=== PATIENT | female | born 1975 | race Caucasian/White ===

== ENCOUNTER → 2018-02-21 08:42 | Outpatient (CLI) | payer SELFPAY ==
--- NOTE | 2018-02-21 08:48 | BI_ITS ---
MAMMOGRAPHY - UNILATERAL SCREENING: LEFT BREAST REASON FOR EXAM: Female, 42 years old. Routine annual screening examination (unilateral). PERTINENT HISTORY: Personal history of breast cancer. Status post right mastectomy and bilateral breast implants. Grandmother with breast cancer. TECHNIQUE: Digital unilateral breast colt (3D mammographic acquisition) in the CC and MLO projections. 2-D mediolateral oblique (MLO) and craniocaudad (CC) views of both breasts were obtained. CAD: Full Field Digital Mammography with Computer Added Detection was performed. COMPARISON: Comparison is made with prior study dated December 15, 2016. FINDINGS: Breast Composition: The breasts are heterogeneously dense, which may obscure small masses. There are no dominant masses or suspicious calcifications. Stable appearance of the implant. No other significant abnormalities are identified. There has been no significant change since the prior study. BI/UNILAT LT SCRN W/CAD IMPRESSION: Stable unilateral screening mammogram. Yearly follow-up mammogram recommended. (A) ASSESSMENT CATEGORY: BIRADS Category 2: Benign. A letter regarding these results will be sent to the patient by the facility within 30 days. Approximately 10% of breast cancers are not detected by mammography. A normal mammogram should not delay biopsy of a clinically suspicious abnormality. [id number] Electronically Signed: Gregory Jamil MD at 9:42 EST Tel [phone], Service support ,
== END ==
PROVIDERS: Visit Provider Internal Medicine Hematology & Oncology
DX: Z12.31 Encounter for screening mammogram for malignant neoplasm of breast (principal); C50.411 Malignant neoplasm of upper-outer quadrant of right female breast; Z17.0 Estrogen receptor positive status [ER+]
CPT/HCPCS: 77061; 77067; G0279

== ENCOUNTER → 2018-02-23 19:52 | Outpatient (CLI) | payer SELFPAY | PROVIDERS: Referring Provider Obstetrics & Gynecology; Visit Provider Obstetrics & Gynecology | DX: N76.0 Acute vaginitis (principal) | CPT/HCPCS: 87070; 87205 ==

== ENCOUNTER → 2018-04-19 13:51 | Outpatient (CLI) | payer SELFPAY ==
[2018-04-19 09:34] VITALS: BMI 21.6
--- NOTE | 2018-04-19 13:54 | US_ITS ---
STUDY: ULTRASOUND OF THE FEMALE PELVIS - COMPLETE REASON FOR EXAM: Female, 43 years old. Pelvic pain and fullness LMP: 04/01/2018 TECHNIQUE: Transabdominal and Transvaginal TECHNICAL QUALITY: Adequate. COMPARISON: None. FINDINGS: The uterus is anteverted and is in a midline position. The uterus measures 9.9 x 6.9 x 5.0 cm. Normal uterine cervix. The endometrium measures 1.5 mm in thickness, and is hyperechoic. There is no demonstrated endometrial mass. There is no demonstrated myometrial mass. I.U.D. - The patient does not have an I.U.D. The right ovary is visualized. The right ovary measures 3.4 x 3.1 x 1.9 cm. There is no right ovarian cyst or ovarian mass. There is no visualized right adnexal mass or complex lesion. There is normal arterial and normal venous vascularity. The left ovary is visualized. The left ovary measures 3.8 x 2.2 x 2.4 cm. There is a complex left adnexal cyst measuring 2.9 x 3.4 x 1.9 cm. There is normal arterial and normal venous vascularity. There is no fluid in the cul-de-sac. The bladder is sonographically normal US/Transvaginal Non- IMPRESSION: Complex left adnexal cyst, follow-up recommended to assure resolution Electronically Signed: Dejon Mario MD at 16:03 EST , Service support ,
--- NOTE | 2018-04-19 13:54 | US_ITS ---
STUDY: ULTRASOUND OF THE FEMALE PELVIS - COMPLETE REASON FOR EXAM: Female, 43 years old. Pelvic pain and fullness LMP: 04/01/2018 TECHNIQUE: Transabdominal and Transvaginal TECHNICAL QUALITY: Adequate. COMPARISON: None. FINDINGS: The uterus is anteverted and is in a midline position. The uterus measures 9.9 x 6.9 x 5.0 cm. Normal uterine cervix. The endometrium measures 1.5 mm in thickness, and is hyperechoic. There is no demonstrated endometrial mass. There is no demonstrated myometrial mass. I.U.D. - The patient does not have an I.U.D. The right ovary is visualized. The right ovary measures 3.4 x 3.1 x 1.9 cm. There is no right ovarian cyst or ovarian mass. There is no visualized right adnexal mass or complex lesion. There is normal arterial and normal venous vascularity. The left ovary is visualized. The left ovary measures 3.8 x 2.2 x 2.4 cm. There is a complex left adnexal cyst measuring 2.9 x 3.4 x 1.9 cm. There is normal arterial and normal venous vascularity. There is no fluid in the cul-de-sac. The bladder is sonographically normal US/Pelvic (Non ) IMPRESSION: Complex left adnexal cyst, follow-up recommended to assure resolution Electronically Signed: Dejon Mario MD at 16:03 EST , Service support ,
[2018-04-24 16:26] LABS: HPV APTIMA, High Risk Negative (Negative)
== END ==
PROVIDERS: Referring Provider Obstetrics & Gynecology; Visit Provider Obstetrics & Gynecology
DX: Z12.4 Encounter for screening for malignant neoplasm of cervix (principal); N94.9 Unspecified condition associated with female genital organs and menstrual cycle
CPT/HCPCS: 76830; 76856; 87624; 88175; 93976; G0145

== ENCOUNTER → 2018-04-21 11:19 | Outpatient (CLI) | payer SELFPAY ==
[2018-04-19 09:34] VITALS: BMI 21.6
[2018-04-22 12:26] LABS: Carcinoembryonic Antigen 1.3 ng/mL (0.0-4.7)
== END ==
PROVIDERS: Referring Provider Nurse Practitioner Women's Health; Visit Provider Nurse Practitioner Women's Health
DX: N83.202 Unspecified ovarian cyst, left side (principal)
CPT/HCPCS: 36415; 82378; 86304

== ENCOUNTER → 2019-04-20 11:28 | Outpatient (CLI) | payer MEDICAID, SELFPAY ==
[2018-04-19 09:34] VITALS: BMI 21.6
--- NOTE | 2019-04-20 11:38 | BI_ITS ---
MAMMOGRAPHY - UNILATERAL SCREENING: LEFT BREAST REASON FOR EXAM: Female, 44 years old. Routine annual screening examination (unilateral). PERTINENT HISTORY: Status post right mastectomy. Personal history of breast malignancy. TECHNIQUE: Digital examination. Mediolateral oblique (MLO) and craniocaudad (CC) views of the breast were obtained. CAD: CAD was performed on this study. COMPARISON: February 21, 2018. FINDINGS: Breast Composition: The breasts are heterogeneously dense, which may obscure small masses. There are no dominant masses or suspicious calcifications. No other significant abnormalities are identified. BI/SCREEN MAMM (CAD) W/SONYA UNI L IMPRESSION: Stable screening mammogram. ASSESSMENT CATEGORY: BIRADS Category 2: Benign. A letter regarding these results will be sent to the patient by the facility within 30 days. FOLLOW UP RECOMMENDATION: Yearly follow up mammogram recommended. (A) [id number] Approximately 10% of breast cancers are not detected by mammography. A normal mammogram should not delay biopsy of a clinically suspicious abnormality. [id number] Electronically Signed: Pepe Singleton MD at 15:09 EST , Service support ,
== END ==
PROVIDERS: Family Provider Family Medicine; PCP Family Medicine; Referring Provider Obstetrics & Gynecology; Visit Provider Obstetrics & Gynecology
DX: Z12.31 Encounter for screening mammogram for malignant neoplasm of breast (principal)
CPT/HCPCS: 77063; 77067

== ENCOUNTER → 2019-04-24 14:25 | Outpatient (CLI) | payer MEDICAID, SELFPAY ==
[2019-04-23 09:32] VITALS: BMI 21.6
--- NOTE | 2019-04-24 14:26 | US_ITS ---
STUDY: ULTRASOUND BREAST - LEFT REASON FOR EXAM: Female, 44 years old. Palpable lump left breast. TECHNIQUE: Axial and longitudinal images of the LEFT breast were performed with a high resolution ultrasound transducer. # OF IMAGES: 9 COMPARISON: Comparison is made with prior mammogram dated April 20, 2019. FINDINGS: LEFT Breast: The palpable abnormality corresponds to a 3 mm x 4 mm x 2 mm cyst. US/Breast Limited Unilateral IMPRESSION: The palpable abnormality corresponds to a 3 mm x 4 mm x 2 mm cyst. ASSESSMENT CATEGORY: BIRADS Category 2: Benign. A letter regarding these results will be sent to the patient by the facility within 30 days. Electronically Signed: Gregory Jamil, at 15:35 EST , Service support ,
== END ==
PROVIDERS: Family Provider Family Medicine; PCP Family Medicine; Referring Provider Obstetrics & Gynecology; Visit Provider Obstetrics & Gynecology
DX: N63.20 Unspecified lump in the left breast, unspecified quadrant (principal); Z85.3 Personal history of malignant neoplasm of breast
CPT/HCPCS: 76642

== ENCOUNTER → 2019-04-27 11:25 | Outpatient (CLI) | payer MEDICAID, SELFPAY ==
[2019-04-23 09:32] VITALS: BMI 21.6
[2019-04-27 16:06] LABS: Color, Urine Yellow (Yellow); Glucose, Dipstick Normal (Normal); Ketone-Dipstick Negative (Negative); Leukocyte Esterase-Dipstick Negative /ul (Negative); Nitrite-Dipstick Negative (Negative); Occult Blood-Urine Negative /ul (Negative); Protein-Dipstick Negative (Negative); Urine Bilirubin Dipstick Negative (Negative); Urine Clarity Clear (Clear); Urine Urobilinogen Normal (Normal)
[2019-04-27 16:30] LABS: Anion Gap 4 (5-15); BUN 14 mg/dL (7-18); BUN/Creat Ratio 18.4 RATIO (10-20); Calcium,Total 9.3 mg/dL (8.5-10.1); Chloride 104 mmol/L (98-107); Creatinine, Serum 0.76 mg/dL (0.55-1.02); EST Glomerular Filtration Rate 87 mL/min (>60); Est Glom Filt Rate - Afr Amer 106 mL/min (>60); Glucose 78 mg/dL (74-106); Sodium Level 137 mmol/L (136-145)
== END ==
PROVIDERS: Family Provider Family Medicine; PCP Family Medicine; Visit Provider Family Medicine
DX: I10 Essential (primary) hypertension (principal)
CPT/HCPCS: 36415; 80048; 81002; 84443

== ENCOUNTER → 2019-05-07 08:27 | Outpatient (CLI) | payer SELFPAY, MEDICAID ==
[2019-04-23 09:32] VITALS: BMI 21.6
--- NOTE | 2019-05-07 08:28 | US_ITS ---
STUDY: ULTRASOUND OF THE FEMALE PELVIS - COMPLETE REASON FOR EXAM: Female, 44 years old. F/u complex cyst LMP: April 29, 2019. TECHNIQUE: Transabdominal and Transvaginal TECHNICAL QUALITY: Adequate. COMPARISON: Comparison is made with prior examination dated April 19, 2018. FINDINGS: The uterus is anteverted and is in a midline position. The uterus measures 10 cm x 6.3 cm x 4.4 cm. There are Nabothian cysts of the cervix. The endometrium measures 9.0 mm in thickness, and is hyperechoic. There is no demonstrated endometrial mass. There is no demonstrated myometrial mass. I.U.D. - The patient does not have an I.U.D. The right ovary is visualized. The right ovary measures 3.4 cm x 3 cm x 2.1 cm. There is no right ovarian cyst or ovarian mass. There is no visualized right adnexal mass or complex lesion. There is normal arterial and normal venous vascularity. The left ovary is visualized. The left ovary measures 3.7 cm x 2.6 cm x 2.4 cm. A dominant follicle is seen within the left ovary measuring 1.7 cm x 1.3 cm x 1.4 cm. There is no visualized left adnexal mass or complex lesion. There is normal arterial and normal venous vascularity. There is no fluid in the cul-de-sac. The pre void volume of the bladder was 405 ml. Polycystic ovary disease: No. US/Transvaginal Non- IMPRESSION: Dominant follicle in the left ovary. No complex cyst is seen at this time. Electronically Signed: Gregory Jamil, at 14:48 EST , Service support ,
--- NOTE | 2019-05-07 08:28 | US_ITS ---
STUDY: ULTRASOUND OF THE FEMALE PELVIS - COMPLETE REASON FOR EXAM: Female, 44 years old. F/u complex cyst LMP: April 29, 2019. TECHNIQUE: Transabdominal and Transvaginal TECHNICAL QUALITY: Adequate. COMPARISON: Comparison is made with prior examination dated April 19, 2018. FINDINGS: The uterus is anteverted and is in a midline position. The uterus measures 10 cm x 6.3 cm x 4.4 cm. There are Nabothian cysts of the cervix. The endometrium measures 9.0 mm in thickness, and is hyperechoic. There is no demonstrated endometrial mass. There is no demonstrated myometrial mass. I.U.D. - The patient does not have an I.U.D. The right ovary is visualized. The right ovary measures 3.4 cm x 3 cm x 2.1 cm. There is no right ovarian cyst or ovarian mass. There is no visualized right adnexal mass or complex lesion. There is normal arterial and normal venous vascularity. The left ovary is visualized. The left ovary measures 3.7 cm x 2.6 cm x 2.4 cm. A dominant follicle is seen within the left ovary measuring 1.7 cm x 1.3 cm x 1.4 cm. There is no visualized left adnexal mass or complex lesion. There is normal arterial and normal venous vascularity. There is no fluid in the cul-de-sac. The pre void volume of the bladder was 405 ml. Polycystic ovary disease: No. US/Pelvic (Non ) IMPRESSION: Dominant follicle in the left ovary. No complex cyst is seen at this time. Electronically Signed: Gregory Jamil, at 14:48 EST , Service support ,
== END ==
PROVIDERS: Family Provider Family Medicine; PCP Family Medicine; Referring Provider Obstetrics & Gynecology; Visit Provider Obstetrics & Gynecology
DX: N83.291 Other ovarian cyst, right side (principal)
CPT/HCPCS: 76830; 76856

== ENCOUNTER → 2020-04-28 | Outpatient (CLI) | payer MEDICAID, SELFPAY ==
[2020-04-28 10:24] VITALS: BMI 21.9
== END | disposition home or self-care (01) ==
PROVIDERS: PCP Family Medicine; Visit Provider Obstetrics & Gynecology
DX: N89.8 Other specified noninflammatory disorders of vagina (principal)
CPT/HCPCS: 87070; 87205

== ENCOUNTER 2021-04-30 10:36 | Outpatient (CLI) | payer MEDICAID, SELFPAY ==
[2021-04-30 14:53] LABS: NATERA MAILED SPECIMEN
[2021-05-06 08:47] LABS: HPV APTIMA, High Risk Negative (Negative)
== END 2021-04-30 23:59 | disposition short-term general hospital (02) ==
PROVIDERS: PCP Family Medicine; Referring Provider Obstetrics & Gynecology; Visit Provider Obstetrics & Gynecology
DX: Z12.4 Encounter for screening for malignant neoplasm of cervix (principal); Z85.3 Personal history of malignant neoplasm of breast; Z80.3 Family history of malignant neoplasm of breast
CPT/HCPCS: 36415; 87624; 88175; G0145

== ENCOUNTER 2021-10-06 11:40 | Day surgery (SDC) | payer MEDICAID, SELFPAY ==
[2021-10-06] VITALS (7 sets, daily range): BP systolic 102–150; BP diastolic 50–83; PULSE 64–84; RESP 16–18; TEMP 36.2–37.2; O2SAT 98–100; BMI 22.3
--- NOTE | 2021-10-06 12:00 | HP.PCM_ITS ---
[facility] - General General Date of Admission: 10/06/21 Date of Service: 10/06/21 Chief Complaint: Colonoscopy [facility] Narrative DOLORES MONIQUE, is a 46 F who presents today for screening colonoscopy. She has a history of breast cancer. At this time she is not having any problems with her bowels. She also carries a past medical history of mild hypertension. She denies any abdominal pain. She denies any chest pain or shortness of breath. [facility] Medical History (Updated 10/01/21 @ 11:54 by Cleopatra Dawson) Alcohol use ASCUS of cervix with negative high risk HPV Breast cancer Cancer Complex cyst of right ovary Hypertension Kidney stones, calcium oxalate Left breast lump Non-smoker Wears contact lenses Home Medications albuterol sulfate 90 mcg/actuation breath activated powder inhaler 1 inh inhalation Q6H PRN SOB 10/01/21 [History Last Taken Unknown] losartan 25 mg tablet 25 mg PO DAILY 10/01/21 [History Last Taken Unknown] Allergy/AdvReac Type Severity Reaction Status Date / Time No Known Allergies Allergy Verified 10/01/21 11:48 Family History Grandmother Breast cancer Hypertension Father Cancer prostate Surgical History (Updated 04/30/21 @ 09:54 by Aislinn Gonsalez) H/O mastectomy History of mastectomy Hx of right breast biopsy Hx of right mastectomy Social History (Updated 04/30/21 @ 10:[address] 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 Smoking Status: Never smoker alcohol intake: current alcohol intake frequency: holidays/special occasions only substance use type: does not use caffeine: Yes what type of physical activity do you participate in: running frequency: 3-4 times per week seatbelt use: always do you feel safe at home: Yes additional social history: remarried Fly (retired) ROS Review of Systems ROS Unobtainable: other Constitutional Constitutional: Denies fatigue, fever(s), poor appetite, weight gain or weight l oss ENT HEENT: Denies mouth lesions Cardiovascular Cardiovascular: Denies abdominal bloating, abdominal edema or abdominal pain Respiratory/Chest Respiratory/Chest: Denies change in mental status, change in phlegm color, chest congestion or chest tightness Gastrointestinal Gastrointestinal: Denies belching, bloating, change in bowel habits, change in stool character, chewing difficulty, coffee ground emesis, constipation, cramping, diarrhea, dyspepsia, dysphagia, early satiety, excessive flatus, fecal incontinence, heartburn, hematemesis, hematochezia, hemorrhoids, loose stools, melena, nausea, odynophagia, rectal bleeding, tenesmus, vomiting or weight changes Genitourinary Genitourinary: Denies abdominal discomfort, burning urination or itching Musculoskeletal Musculoskeletal: Reports as per HPI; Denies muscle weakness or myalgias Integumentary Integumentary: Denies jaundice Neurologic Neurologic: Denies lack of coordination or weakness Psychiatric Psychiatric: Denies confusion, depression, memory loss, mood swings, paranoia or suicidal ideation Endocrine Endocrinology: Denies systems reviewed and no addt'l complaints, except as documented Hematologic/Lymphatic Hematologic/Lymphatic: Denies anemia, easy bleeding, easy bruising or lymphadeno catal[place] Allergic/Immunologic Allergic/Immunologic: Denies systems reviewed and no addt'l complaints, except as documented Physical Exam Const alert General Appearance: cooperative Orientation / Consciousness: oriented to person HEENT hearing grossly normal bilaterally Head and Scalp: normal to inspection Face and Sinus: face symmetric Nose: external nose normal Mouth: oral and palatal mucosa normal Eyes conjunctivae normal General Eye: normal appearance of both eyes Neck full ROM General: normal visual inspection Lymph Lymphatic: no lymphadenopathy noted Chest inspection of chest normal and palpation of chest normal Chest: symmetrical chest wall rise Resp normal respiratory effort Effort and Inspection: able to speak in complete sentences Cardio regular rate GI non-distended Percussion: normal to percussion Rectal Exam: deferred Neuro Speech: speech normal Gait (Neuro): normal gait Assessment & Plan Assessment/Plan (1) Encounter for screening for malignant neoplasm of colon: PLAN: She was explained alternatives, risk, benefits including not withstanding bleeding, infection, sepsis, perforation, need for emergent surgery . She will have an ASA of 1.
[2021-10-06 12:16] LABS: Internal QC Validated? YES +Cl - CLEAR BKGD; Pregnancy, Urine Negative Negative
[2021-10-06] MEDS: Lactated Ringers 1,000 ML 15 ML IV (12:19)
--- NOTE | 2021-10-06 13:22 | OP.COLON_ITS ---
Patient Name: Cara Singh Procedure Date: 10/06/2021 12:51 PM Date of : 1975 Age: 46 Procedure: Colonoscopy Indications: Screening for colorectal malignant neoplasm Providers: Familia Bell DO Medicines: Monitored Anesthesia Care Patient Profile: This is a 46 year old female. Refer to note in patient chart for documentation of history and physical. Last Colonoscopy: none. The patient's first colonoscopy is today. Complications: No immediate complications. Procedure: Pre-Anesthesia Assessment: - Prior to the procedure, a History and Physical was performed, and patient medications and allergies were reviewed. The patient is competent. The risks and benefits of the procedure and the sedation options and risks were discussed with the patient. All questions were answered and informed consent was obtained. Patient identification and proposed procedure were verified by the physician in the pre-procedure area. Mental Status Examination: alert and oriented. Airway Examination: normal oropharyngeal airway and neck mobility. Respiratory Examination: clear to auscultation. CV Examination: normal. Prophylactic Antibiotics: The patient does not require prophylactic antibiotics. Prior Anticoagulants: The patient has taken no previous anticoagulant or antiplatelet agents. After reviewing the risks and benefits, the patient was deemed in satisfactory condition to undergo the procedure. The anesthesia plan was to use moderate sedation / analgesia (conscious sedation). Immediately prior to administration of medications, the patient was re-assessed for adequacy to receive sedatives. The heart rate, respiratory rate, oxygen saturations, blood pressure, adequacy of pulmonary ventilation, and response to care were monitored throughout the procedure. The physical status of the patient was re-assessed after the procedure. After I obtained informed consent, the scope was passed under direct vision. Throughout the procedure, the patient's blood pressure, pulse, and oxygen saturations were monitored continuously. The Colonoscope was introduced through the anus and advanced to the cecum, identified by appendiceal orifice and ileocecal valve. The colonoscopy was performed without difficulty. The patient tolerated the procedure well. The quality of the bowel preparation was good. Scope In: 1:03:36 PM Scope Withdrawal Time 0 hours 9 minutes 6 seconds Scope Out: 1:17:13 PM Total Procedure Duration Time 0 hours 13 minutes 37 seconds Findings: The perianal and digital rectal examinations were normal. The colon (entire examined portion) appeared normal. No additional abnormalities were found on retroflexion. Impression: - The entire examined colon is normal. - No specimens collected. Recommendation: - Written discharge instructions were provided to the patient. - The signs and symptoms of potential delayed complications were discussed with the patient. - Patient has a contact number available for emergencies. - Return to normal activities tomorrow. - Resume previous diet. - Continue present medications. - Repeat colonoscopy in 10 years for screening purposes. Procedure Code(s): --- Professional --- G0121, Colorectal cancer screening; colonoscopy on individual not meeting criteria for high risk CPT copyright 2017 [employer] [place] [employer]. All rights reserved. The codes documented in this report are preliminary and upon brick kiln worker review may be revised to meet current compliance requirements. Familia Bell DO 10/06/2021 1:22:12 PM This report has been signed electronically. Number of Addenda: 1 Note Initiated On: 10/06/2021 12:51 PM Addendum Number: 1 Addendum Date: 01/19/2022 6:10:04 AM MAC was used as sedation for this procedure. Familia Bell DO 01/19/2022 6:10:08 AM This report has been signed electronically.
--- NOTE | 2021-10-06 13:23 | OP.CCLET_ITS ---
01/19/2022 Neena Knox [place] [id number] [address] Re : Colonoscopy procedure for Cara Singh Dear Dr. Knox This procedure was performed on Wednesday, October 06, 2021. My impressions and recommendations are as follows: Impressions : - The entire examined colon is normal. - No specimens collected. Recommendations : - Written discharge instructions were provided to the patient. - The signs and symptoms of potential delayed complications were discussed with the patient. - Patient has a contact number available for emergencies. - Return to normal activities tomorrow. - Resume previous diet. - Continue present medications. - Repeat colonoscopy in 10 years for screening purposes. My findings are described in the full procedure note, which is enclosed. If I can be of further assistance, please feel free to contact me at . Sincerely, Familia Friend, 10/06/2021 1:22:12 PM This report has been signed electronically.
== END 2021-10-06 14:09 | disposition home or self-care (01) ==
LOC: EN 11:42 → AC 11:44
PROVIDERS: Anesthesiology; PCP Family Medicine; Referring Provider Family Medicine; Visit Provider Internal Medicine Gastroenterology
PROC: 0DJD8ZZ Inspection of Lower Intestinal Tract, Via Natural or Artificial Opening Endoscopic (ICD-10-PCS; CPT 45378; principal; 2021-10-06 12:55)
DX: Z12.11 Encounter for screening for malignant neoplasm of colon (principal); I10 Essential (primary) hypertension; Z79.899 Other long term (current) drug therapy
CPT/HCPCS: 45378; 81025; J7120

== ENCOUNTER → 2022-05-06 | Outpatient (CLI) | payer MEDICAID, SELFPAY ==
[2022-05-11 22:08] LABS: HPV APTIMA, High Risk Negative (Negative)
== END | disposition home or self-care (01) ==
LOC: LABSPEC 14:20
PROVIDERS: PCP Family Medicine; Visit Provider Obstetrics & Gynecology
DX: Z12.4 Encounter for screening for malignant neoplasm of cervix (principal)
CPT/HCPCS: 87624; 88175; G0145

== ENCOUNTER → 2022-06-10 | Outpatient (CLI) | payer OTHER, MEDICAID, SELFPAY ==
[2022-06-10 12:25] LABS: AST(SGOT) 25 U/L (15-37); Alanine Aminotransfer ALT/SGPT 39 U/L (13-56); Albumin, Serum 3.8 g/dL (3.2-5.0); Alkaline Phosphatase 53 U/L (45-117); Anion Gap 6 (5-15); BUN 16 mg/dL (7-18); BUN/Creat Ratio 21.7 RATIO (10-20); Calcium,Total 9.7 mg/dL (8.5-10.1); Chloride 105 mmol/L (98-107); Creatinine, Serum 0.74 mg/dL (0.55-1.02); EST Glomerular Filtration Rate 89 mL/min (>60); Est Glom Filt Rate - Afr Amer 108 mL/min (>60); Globulin 3.8 g/dL (2.2-4.2); Glucose 113 mg/dL (74-106); Protein, Total 7.6 g/dL (6.4-8.2); Sodium Level 140 mmol/L (136-145)
[2022-06-10 12:50] LABS: Absolute Lymphocyte Count 1.57 X10^3/uL (0.83-4.51); Absolute Neutrophil Count 8.8 X10^3/uL (2.0-7.7); Basophil# 0.03 X10^3/uL; Basophil% 0.3 % (0-1); Eosinophil# 0.01 X10^3/uL; Eosinophils% 0.1 % (0-5); Hematocrit 40.4 % (37-47); Hemoglobin 13.1 g/dL (12.0-15.0); Lymphocyte # 1.57 X10^3/ul (0.83-4.51); Lymphocyte % 14.6 % (19-41); Mean Corp Hgb Conc 32.4 g/dL (32-36); Mean Corpuscular Hgb 30.5 pg (27.0-32.0); Mean Corpuscular Volume 94.2 fL (81-99); Mean Platelet Vol. 10.1 fl (6.2-12.0); Monocyte# 0.28 X10^3/uL; Monocyte% 2.6 % (0-10); NRBC Flagged by Analyzer 0 % (0-5); Neutrophil # 8.79 X10^3/uL (2.7-7.7); Neutrophil % 81.6 % (47-70); Platelet Count 397 K/mm3 (150-450); RBC Distribution Width CV 12.8 % (11.6-14.6); RBC Distribution Width SD 44.3 fl (35.1-43.9); Red Blood Count 4.29 M/mm3 (4.2-5.4); White Blood Count 10.8 K/mm3 (4.4-11.0)
== END | disposition home or self-care (01) ==
LOC: BFHLAB 10:40
PROVIDERS: PCP Family Medicine; Visit Provider Family Medicine
DX: I10 Essential (primary) hypertension (principal)
CPT/HCPCS: 36415; 80053; 85025

== ENCOUNTER → 2023-03-23 | Outpatient (CLI) | payer OTHER, SELFPAY | END | disposition home or self-care (01) | PROVIDERS: PCP Family Medicine; Referring Provider Otolaryngology; Visit Provider Otolaryngology | DX: J32.9 Chronic sinusitis, unspecified (principal) | CPT/HCPCS: 87070; 87205 ==

== ENCOUNTER → 2023-07-11 | Outpatient (CLI) | payer OTHER, SELFPAY ==
[2023-07-11 16:19] LABS: Absolute Lymphocyte Count 2.42 X10^3/uL (0.83-4.51); Absolute Neutrophil Count 3.2 X10^3/uL (2.0-7.7); Basophil# 0.05 X10^3/uL; Basophil% 0.8 % (0-1); Eosinophil# 0.41 X10^3/uL; Eosinophils% 6.2 % (0-5); Hematocrit 37.8 % (37-47); Hemoglobin 12.2 g/dL (12.0-15.0); Lymphocyte # 2.42 X10^3/ul (0.83-4.51); Lymphocyte % 36.4 % (19-41); Mean Corp Hgb Conc 32.3 g/dL (32-36); Mean Corpuscular Hgb 29.7 pg (27.0-32.0); Mean Platelet Vol. 9.4 fl (6.2-12.0); Monocyte# 0.53 X10^3/uL; NRBC Flagged by Analyzer 0 % (0-5); Neutrophil # 3.23 X10^3/uL (2.7-7.7); Neutrophil % 48.4 % (47-70); Platelet Count 286 K/mm3 (150-450); RBC Distribution Width CV 12.7 % (11.6-14.6); RBC Distribution Width SD 42.6 fl (35.1-43.9); Red Blood Count 4.11 M/mm3 (4.2-5.4); White Blood Count 6.7 K/mm3 (4.4-11.0)
== END | disposition home or self-care (01) ==
LOC: PAVLAB 15:40
PROVIDERS: PCP Family Medicine; Referring Provider Obstetrics & Gynecology; Visit Provider Obstetrics & Gynecology
DX: N95.1 Menopausal and female climacteric states (principal); Z13.29 Encounter for screening for other suspected endocrine disorder
CPT/HCPCS: 36415; 84443; 85025

== ENCOUNTER → 2023-10-25 | Outpatient (CLI) | payer OTHER, SELFPAY ==
[2023-10-25 18:20] LABS: ALB/GLOB Ratio 1.2 RATIO (0.9-2.4); AST(SGOT) 20 U/L (15-37); Alanine Aminotransfer ALT/SGPT 30 U/L (13-56); Albumin, Serum 3.8 g/dL (3.2-5.0); Alkaline Phosphatase 56 U/L (45-117); Anion Gap 4 (5-15); BUN 18 mg/dL (7-18); Calcium,Total 9.4 mg/dL (8.5-10.1); Chloride 105 mmol/L (98-107); Creatinine, Serum 0.72 mg/dL (0.55-1.02); EST Glomerular Filtration Rate 91 mL/min (>60); Est Glom Filt Rate - Afr Amer 110 mL/min (>60); Globulin 3.3 g/dL (2.2-4.2); Glucose 96 mg/dL (74-106); Potassium 3.7 mmol/L (3.5-5.1); Protein, Total 7.1 g/dL (6.4-8.2); Sodium Level 135 mmol/L (136-145)
== END | disposition home or self-care (01) ==
LOC: MTLAB 16:36
PROVIDERS: PCP Family Medicine; Referring Provider Family Medicine; Visit Provider Family Medicine
DX: I10 Essential (primary) hypertension (principal)
CPT/HCPCS: 36415; 80053

== ENCOUNTER → 2024-03-28 | Outpatient (CLI) | payer OTHER, SELFPAY | END | disposition home or self-care (01) | PROVIDERS: PCP Family Medicine; Referring Provider Otolaryngology; Visit Provider Otolaryngology | DX: J32.9 Chronic sinusitis, unspecified (principal) | CPT/HCPCS: 87070; 87205 ==

== ENCOUNTER 2024-08-16 11:01 | Emergency (ER) | payer OTHER, SELFPAY ==
[2024-08-16 11:02] VITALS: BP 157/88; PULSE 94; RESP 17; TEMP 37.1; O2SAT 100; BMI 24.1
[2024-08-16 11:06] VITALS: BP 157/88; PULSE 94; RESP 17; TEMP 37.1; O2SAT 100
--- NOTE | 2024-08-16 11:36 | EKG12_ITS ---
Test Reason : CP Blood Pressure : */* mmHG Vent. Rate : 90 BPM Atrial Rate : 90 BPM P-R Int : 124 ms QRS Dur : 88 ms QT Int : 338 ms P-R-T Axes : 74 72 57 degrees QTcB Int : 413 ms Normal sinus rhythm Possible Left atrial enlargement Minimal voltage criteria for LVH, may be normal variant ( Sokolow-Silveira ) Nonspecific ST and T wave abnormality Abnormal ECG Confirmed by JOVAN CAT, MACKENZIE ([id number]), book or script editor PATRICIA PAIGE ([id number]) on 08/17/2024 8:17:01 AM Referred By: Matthew Bolaños Confirmed By: MACKENZIE ALDANA MD
--- NOTE | 2024-08-16 11:42 | EX.ED.DYSGE1 ---
HPI <GAEL Cuellar - Last Filed: 08/16/24 14:22> History of Present Illness Chief Complaint: Chest Pain Narrative Narrative: Patient presenting today with pain across her upper abdomen that radiates to the left side of her chest and left shoulder she has had over the past 2 days or so. She reports that the pain is worse when she is moving around or coughs. She reports mild dyspnea with exertion. She recently finished a 2-week course of Augmentin for a sinus infection, she reports that she is still experiencing nasal congestion. She has a history of breast cancer s/p bilateral mastectomy that was in remission, however, they recently found a spot on her chest that required surgical removal 4 weeks ago and radiation therapy, she last had radiation today. She follows with Dr. Faust. She denies any history of blood clots. She denies fevers, chills, nausea, vomiting, cardiac history, and stool changes. PFSH <GAEL Cuellar - Last Filed: 08/16/24 14:22> [facility] Medical History Wears contact lenses Cancer Alcohol use Non-smoker Hypertension Left breast lump ASCUS of cervix with negative high risk HPV Complex cyst of right ovary Kidney stones, calcium oxalate Breast cancer Home Medications ?Medication ?Instructions ?Recorded ?Last Taken ?Type losartan 25 mg tablet 25 mg PO QHS 10/01/21 08/15/24 History amoxicillin 875 mg-potassium 1 tab PO BID 08/16/24 08/15/24 History clavulanate 125 mg tablet fluticasone propionate 50 2 spray intranasal DAILY PRN 08/16/24 Unknown History mcg/actuation nasal allergy symptoms spray,suspension (24 Hour Allergy Relief) loratadine 10 mg tablet 10 mg PO QHS 08/16/24 08/16/24 History (Allerclear) oxymetazoline 0.05 % nasal spray 2 spray intranasal BID PRN nasal 08/16/24 Unknown History (12 Hour Nasal Relief Caldwell) congestion pantoprazole 40 mg tablet,delayed 40 mg PO DAILY #14 tabs 08/16/24 Unknown Rx release (Protonix) Allergy/AdvReac Type Severity Reaction Status Date / Time No Known Allergies Allergy Verified 08/16/24 11:07 Family History Grandmother Breast cancer Hypertension Father Cancer prostate Surgical History History of mastectomy Hx of right breast biopsy Hx of right mastectomy H/O mastectomy Social History number of children: 2 current occupational status: employed 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 Smoking Status: Former smoker alcohol intake: current alcohol intake frequency: holidays/special occasions only substance use type: does not use caffeine: Yes what type of physical activity do you participate in: none seatbelt use: always do you feel safe at home: Yes 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) ROS <GAEL Cuellar - Last Filed: 08/16/24 14:22> ROS ED Constitutional Constitutional ED: Denies chills or fever(s) Cardiovascular Cardiovascular: Reports chest pain; Denies palpitations Respiratory/Chest Respiratory/Chest: Reports cough and dyspnea on exertion Gastrointestinal Gastrointestinal: Reports abdominal pain; Denies constipation, diarrhea, melena, nausea or vomiting Genitourinary Genitourinary ED: Denies dysuria, hematuria or urinary urgency Musculoskeletal Musculoskeletal: Denies arthralgias or myalgias Integumentary Denies rash Neurologic Neurologic: Denies weakness EXAM <GAEL Cuellar - Last Filed: 08/16/24 14:22> Physical Exam Const Vital Signs: 08/16/24 11:02 08/16/24 11:06 08/16/24 11:33 Temperature 98.7 F 98.7 F Temperature Source Oral Oral Pulse Rate 94 94 Respiratory Rate 17 17 Respiratory Effort Short of Breath Blood Pressure 157/88 H 157/88 H Blood Pressure Mean 111 111 Pulse Ox 100 100 Oxygen Delivery Method Room Air Room Air 08/16/24 12:10 08/16/24 13:02 08/16/24 13:34 Temperature 98.7 F 97 F L Temperature Source Oral Pulse Rate 89 92 Respiratory Rate 18 16 Respiratory Effort Blood Pressure 165/92 H 163/91 H 143/88 H Blood Pressure Mean 116 115 106 Pulse Ox 97 97 Oxygen Delivery Method Room Air Positive well nourished, well developed and no apparent distress General Appearance ED: well developed HEENT Reports normocephalic and head/scalp atraumatic Mouth ED: Yes moist mucous membranes normal Eyes PERRL and EOMs intact bilaterally Neck full ROM and supple Chest Wall inspection of chest normal and palpation of chest normal Resp normal respiratory effort and clear to auscultation bilaterally Cardio regular rate and regular rhythm GI soft to palpation, non-distended and no masses GI Narrative: Tenderness across the upper abdomen, primarily to the LUQ. No rigidity or guarding. Back/Spine normal ROM and normal to inspection Extremity normal to inspection and full ROM Neuro oriented x3, CN's II-XII intact bilaterally, moves all extremities, no focal motor deficits and no sensory deficits noted Sensorium / Orientation: awake and alert Psych mental status grossly normal and thought process normal Skin no rashes or lesions noted and no wounds <Dr. Matthew Bolaños MD - Last Filed: 08/16/24 13:26> Physical Exam Const Vital Signs: 08/16/24 11:02 08/16/24 11:06 08/16/24 11:33 Temperature 98.7 F 98.7 F Temperature Source Oral Oral Pulse Rate 94 94 Respiratory Rate 17 17 Respiratory Effort Short of Breath Blood Pressure 157/88 H 157/88 H Blood Pressure Mean 111 111 Pulse Ox 100 100 Oxygen Delivery Method Room Air Room Air 08/16/24 12:10 08/16/24 13:02 08/16/24 13:34 Temperature 98.7 F 97 F L Temperature Source Oral Pulse Rate 89 92 Respiratory Rate 18 16 Respiratory Effort Blood Pressure 165/92 H 163/91 H 143/88 H Blood Pressure Mean 116 115 106 Pulse Ox 97 97 Oxygen Delivery Method Room Air [facility] <GAEL Cuellar - Last Filed: 08/16/24 14:22> [facility] Narrative Medical decision making narrative: Patient presenting today due to pain across her upper abdomen, primarily to the left side that radiates to the left side of her chest and left shoulder she said over the past few days. She reports feeling mildly dyspneic with exertion, her O2 saturation is 100% on room air, she is not in any respiratory distress. She is minimal tenderness to her left upper quadrant and epigastric region of her stomach. Abdominal labs will be obtained to assess for leukocytosis, anemia, electrolyte abnormality, BYRON, hepatobiliary etiology, and pancreatitis. Troponin will be obtained given her left-sided chest discomfort. Given she has a history of breast cancer with recent surgery, CTA of the chest will be obtained to assess for blood clots, CT of the abdomen and pelvis with IV contrast will be obtained to assess for abdominal etiology of her pain. CBC shows a hemoglobin of 11.7, this is slightly lower than previous labs, her CMP, troponin, and lipase are unremarkable. She did not have any urinary symptoms to necessitate need for UA. CT scan of the abdomen pelvis with IV contrast shows nonspecific inflammatory stranding to the left upper quadrant adjacent to the gastric fundus consistent with gastritis, there is a 1.7 cm left ovarian corpus luteal cyst and pelvic free fluid, she is not having any pelvic pain on exam. CT of the chest negative for PE, pneumonia, and other cardiopulmonary abnormality. She was given a GI cocktail here, she did report improvement of her symptoms. She does admit that she drinks half a bottle of wine per night, suspect she has an alcohol induced gastritis. Recommended alcohol cessation, I will place her on a course of Protonix. Recommended she follow-up closely with her PCP and she will be discharged home in stable condition. I have personally performed a face to face assessment of the patient and have reviewed the NGUYEN Note. I performed a substantive portion of the visit including all aspects of the following. My escalona findings include: History is [49-year-old female with atypical left-sided chest discomfort and upper abdominal discomfort. History of prior breast CA with recurrence. No history of DVT or PE in the past. No cardiac history.] Exam is [well-appearing 49-year-old female. Vital signs stable afebrile. Pulse ox 100% on room air no hypoxia. No distress. H EENT exam pupils round reactive light. Moist extremities. Neck nontender no lymphadenopathy. Lungs clear to auscultation bilaterally. Heart regular rate and rhythm rate about 90 no murmur. Chest wall and ribs nontender. Well-healing midsternal incision. Dry and clean. Abdomen is soft, nontender, nondistended normal bowel sounds peritoneal signs. Moving all 4 extremities. Nontender no edema. Neurologically she is awake and alert. No focal motor deficits.] Medical Decision Making [49-year-old history of breast cancer recurrence recent surgery with atypical chest and abdominal pain. CAT scan and labs will be obtained. Clinically do not think this is cardiac. Negative the lower likelihood for PE. She has no acute abdominal exam. Gastritis gallbladder disease would be a possibility.] Other additions or changes: [None] Lab Data Attestation: I reviewed the patient's lab results. Labs: Laboratory Results - last 24 hr 08/16/24 11:40 WBC 6.3 RBC 3.90 L Hgb 11.7 L Hct 35.4 L MCV 90.8 MCH 30.0 MCHC 33.1 RDW Std Deviation 42.9 RDW Coeff of Claudia 13.1 Plt Count 240 MPV 9.4 Immature Gran % (Auto) 0.500 Neut % (Auto) 67.9 Lymph % (Auto) 18.4 L Houghton % (Auto) 10.2 H Eos % (Auto) 2.7 Baso % (Auto) 0.3 Absolute Neuts (auto) 4.2 Absolute Lymphs (auto) 1.15 Nucleated RBC % 0 Sodium 137 Potassium 3.9 Chloride 104 Carbon Dioxide 22.7 Anion Gap 10 BUN 13 Creatinine 0.62 L Estim Creat Clear Calc 96.60 Est GFR (MDRD) Non-Af 108 BUN/Creatinine Ratio 20.6 H Glucose 92 Calcium 9.1 Total Bilirubin 0.34 AST 17 ALT 18 Alkaline Phosphatase 66 Troponin T High Sens 6 Total Protein 6.9 Albumin 4.1 Globulin 2.8 Albumin/Globulin Ratio 1.4 Lipase 31 Radiography Diagnostic Testing: Clinical Impression(s) from Imaging Studies Abdomen/Pelvis CT 08/16/24 12:10 IMPRESSION: 1. Mild nonspecific inflammatory stranding in the LEFT upper quadrant adjacent to the gastric fundus and medial spleen. Stomach itself is not well evaluated due to underdistention. Correlate for possible focal gastritis or perhaps peptic ulcer disease. Omental infarct is an additional consideration although the location would be slightly unusual. 2. 1.7 cm LEFT ovarian likely corpus luteal cyst which may be a self-limited source of abdominopelvic pain. 3. Trace to small volume pelvic free fluid, potentially physiologic in a premenopausal female. 4. Refer to separately dictated concurrent CTA chest for intrathoracic findings. 5. Additional description as above. Reading Location: [id number] Chest CTA 08/16/24 12:10 IMPRESSION: There is no visible pulmonary embolus. [facility] E[facility] Initial EKG: Comments: 90 bpm, normal sinus rhythm, no ST elevation, interpreted by attending ED physician <Dr. Matthew Bolaños MD - Last Filed: 08/16/24 13:26> [facility] Narrative Medical decision making narrative: Patient presenting today due to pain across her upper abdomen, primarily to the left side that radiates to the left side of her chest and left shoulder she said over the past few days. She reports feeling mildly dyspneic with exertion, her O2 saturation is 100% on room air, she is not in any respiratory distress. She is minimal tenderness to her left upper quadrant and epigastric region of her stomach. Abdominal labs will be obtained to assess for leukocytosis, anemia, electrolyte abnormality, BYRON, hepatobiliary etiology, and pancreatitis. Troponin will be obtained given her left-sided chest discomfort. Given she has a history of breast cancer with recent surgery, CTA of the chest will be obtained to assess for blood clots, CT of the abdomen and pelvis with IV contrast will be obtained to assess for abdominal etiology of her pain. I have personally performed a face to face assessment of the patient and have reviewed the NGUYEN Note. I performed a substantive portion of the visit including all aspects of the following. My escalona findings include: History is [49-year-old female with atypical left-sided chest discomfort and upper abdominal discomfort. History of prior breast CA with recurrence. No history of DVT or PE in the past. No cardiac history.] Exam is [well-appearing 49-year-old female. Vital signs stable afebrile. Pulse ox 100% on room air no hypoxia. No distress. H EENT exam pupils round reactive light. Moist extremities. Neck nontender no lymphadenopathy. Lungs clear to auscultation bilaterally. Heart regular rate and rhythm rate about 90 no murmur. Chest wall and ribs nontender. Well-healing midsternal incision. Dry and clean. Abdomen is soft, nontender, nondistended normal bowel sounds peritoneal signs. Moving all 4 extremities. Nontender no edema. Neurologically she is awake and alert. No focal motor deficits.] Medical Decision Making [49-year-old history of breast cancer recurrence recent surgery with atypical chest and abdominal pain. CAT scan and labs will be obtained. Clinically do not think this is cardiac. Negative the lower likelihood for PE. She has no acute abdominal exam. Gastritis gallbladder disease would be a possibility.] Other additions or changes: [None] Lab Data Lab results narrative: CBC white count 6. H&H 11.7 and 35.4. Platelets 340. Electrolytes show gap 10. BUN and creatinine are 30 0.6. Liver enzymes normal. Lipase 3109. Labs: Laboratory Results - last 24 hr 08/16/24 11:40 WBC 6.3 RBC 3.90 L Hgb 11.7 L Hct 35.4 L MCV 90.8 MCH 30.0 MCHC 33.1 RDW Std Deviation 42.9 RDW Coeff of Claudia 13.1 Plt Count 240 MPV 9.4 Immature Gran % (Auto) 0.500 Neut % (Auto) 67.9 Lymph % (Auto) 18.4 L Houghton % (Auto) 10.2 H Eos % (Auto) 2.7 Baso % (Auto) 0.3 Absolute Neuts (auto) 4.2 Absolute Lymphs (auto) 1.15 Nucleated RBC % 0 Sodium 137 Potassium 3.9 Chloride 104 Carbon Dioxide 22.7 Anion Gap 10 BUN 13 Creatinine 0.62 L Estim Creat Clear Calc 96.60 Est GFR (MDRD) Non-Af 108 BUN/Creatinine Ratio 20.6 H Glucose 92 Calcium 9.1 Total Bilirubin 0.34 AST 17 ALT 18 Alkaline Phosphatase 66 Troponin T High Sens 6 Total Protein 6.9 Albumin 4.1 Globulin 2.8 Albumin/Globulin Ratio 1.4 Lipase 31 Radiography Diagnostic Testing: Clinical Impression(s) from Imaging Studies Abdomen/Pelvis CT 08/16/24 12:10 IMPRESSION: 1. Mild nonspecific inflammatory stranding in the LEFT upper quadrant adjacent to the gastric fundus and medial spleen. Stomach itself is not well evaluated due to underdistention. Correlate for possible focal gastritis or perhaps peptic ulcer disease. Omental infarct is an additional consideration although the location would be slightly unusual. 2. 1.7 cm LEFT ovarian likely corpus luteal cyst which may be a self-limited source of abdominopelvic pain. 3. Trace to small volume pelvic free fluid, potentially physiologic in a premenopausal female. 4. Refer to separately dictated concurrent CTA chest for intrathoracic findings. 5. Additional description as above. Reading Location: [facility] Chest CTA 08/16/24 12:10 IMPRESSION: There is no visible pulmonary embolus. Reading [facility] Rhythm Strip Rhythm Strip: Sinus Rhythm Rate: 90 Ectopy: None EKG Initial EKG: Attestation: I personally reviewed and interpreted this EKG as follows: Interpretation: Sinus Rhythm and No Acute Injury Pattern Discharge Plan Triage Chief Complaint: Chest Pain ED Midlevel Provider: Ana Sargent ED Provider: Matthew Bolaños Dx/Rx/DC Orders Clinical Impression: Gastritis, History of breast cancer, Atypical chest pain Instructions: ED Gastritis (Adult) Prescriptions: New pantoprazole [Protonix] 40 mg tablet,delayed release (DR/EC) 40 mg PO DAILY Qty: 14 0RF No Action losartan 25 mg Tablet 25 mg PO QHS amoxicillin-pot clavulanate 875-125 mg tablet 1 tab PO BID Patient Comments: PT HAS 2 DAYS LEFT OF COURSE fluticasone propionate [24 Hour Allergy Relief] 50 mcg/actuation spray,suspension 2 spray intranasal DAILY PRN (Reason: allergy symptoms) Rx Instructions: administer into each nostril loratadine [Allerclear] 10 mg tablet 10 mg PO QHS oxymetazoline [12 Hour Nasal Relief [place]] 0.05 % spray,non-aerosol 2 spray intranasal BID PRN (Reason: nasal congestion) Primary Care Provider: Neena Knox Referrals: Neena Knox MD [Primary Care Provider] - 5-7 Days Activity Restrictions/Additional Instructions: Follow-up with your PCP and return for any worsening symptoms. Print Language: Nepali Disposition Disposition: Home, Self Care Discharge Date/Time: 08/16/24 13:42
[2024-08-16 11:51] LABS: Absolute Lymphocyte Count 1.15 X10^3/uL (0.83-4.51); Absolute Neutrophil Count 4.2 X10^3/uL (2.0-7.7); Basophil# 0.02 X10^3/uL; Basophil% 0.3 % (0-1); Eosinophil# 0.17 X10^3/uL; Eosinophils% 2.7 % (0-5); Hematocrit 35.4 % (37-47); Hemoglobin 11.7 g/dL (12.0-15.0); Lymphocyte # 1.15 X10^3/ul (0.83-4.51); Lymphocyte % 18.4 % (19-41); Mean Corp Hgb Conc 33.1 g/dL (32-36); Mean Corpuscular Volume 90.8 fL (81-99); Mean Platelet Vol. 9.4 fl (6.2-12.0); Monocyte# 0.64 X10^3/uL; Monocyte% 10.2 % (0-10); NRBC Flagged by Analyzer 0 % (0-5); Neutrophil # 4.24 X10^3/uL (2.7-7.7); Neutrophil % 67.9 % (47-70); Platelet Count 240 K/mm3 (150-450); RBC Distribution Width CV 13.1 % (11.6-14.6); RBC Distribution Width SD 42.9 fl (35.1-43.9); White Blood Count 6.3 K/mm3 (4.4-11.0)
[2024-08-16] MEDS: Ketorolac 15 MG/ML Vial IV (12:05)
[2024-08-16 12:10] VITALS: BP 165/92; PULSE 89; RESP 18; TEMP 37.1; O2SAT 97
--- NOTE | 2024-08-16 12:10 | CT_ITS ---
PROCEDURE: ABDOMEN/PELVIS W IV CONT ONLY (procedure code [id number]), 08/16/2024 REASON FOR EXAM: ABDOMINAL PAIN TECHNIQUE: CT abdomen and pelvis was performed with IV contrast. Multiplanar reformats were generated. CONTRAST: Isovue 370 VOLUME: 75mL RADIATION DOSE SUMMARY: CTDlvol: 12.58+ 7.62+ 12.64 mGy DLP: 889.78 mGycm Note that this represents the total for the CTA chest and CT abdomen and pelvis. One or more dose reduction techniques were used (e.g., Automated exposure control, adjustment of the mA and/or kV according to patient size, use of iterative reconstruction technique). COMPARISON: None FINDINGS: Lung bases: Refer to separately dictated concurrent CTA chest. Liver: Unremarkable. Spleen: Unremarkable. Gallbladder: Unremarkable. Pancreas: Unremarkable. Adrenals: Unremarkable. Kidneys: Tiny hypodensities bilaterally, too small to characterize, likely cysts. Punctate intrarenal calculus on the RIGHT with overlying cortical scarring. No hydronephrosis. Bowel: Mild nonspecific focal stranding along the gastric fundus and medial spleen superiorly, also closely approximating a tiny portion of the inferior surface of the diaphragm. Gastric underdistention limits evaluation of wall thickness. Normal caliber appendix. Lymph nodes: Mildly prominent but subcentimeter mesenteric nodes.. Vasculature: Trace atherosclerosis. Peritoneum: Trace to small volume pelvic free fluid. Bladder: Underdistended and suboptimally evaluated, grossly unremarkable. Reproductive Organs: Tiny hypodensity within the RIGHT uterine fundus, nonspecific. 1.7 cm LEFT ovarian peripherally enhancing likely corpus luteal cyst. Body Wall: Tiny fat containing umbilical hernia. Bones: Transitional lumbosacral anatomy, normal variant. CT/Abdomen/Pelvis W IV Cont ONLY IMPRESSION: 1. Mild nonspecific inflammatory stranding in the LEFT upper quadrant adjacent to the gastric fundus and medial spleen. Stomach itself is not well evaluated due to underdistention. Correlate for possible fo olivia gastritis or perhaps peptic ulcer disease. Omental infarct is an additional consideration although the location would be s lightly unusual. 2. 1.7 cm LEFT ovarian likely corpus luteal cyst which may be a self-limited so urce of abdominopelvic pain. 3. Trace to small volume pelvic free fluid, potentially physiologic in a premen opausal female. 4. Refer to separately dictated concurrent CTA chest for intrathoracic findings . 5. Additional description as above. Reading Location: [id number]
--- NOTE | 2024-08-16 12:10 | CT_ITS ---
PROCEDURE: CTA CHEST W/WO CONTRAST 08/16/2024 REASON FOR EXAM: CHEST PAIN, HX CANCER, SOB TECHNIQUE: CTA axial imaging of the chest with intravenous contrast. Multiplanar and multisequence images were obtained. PATIENT PREPARATION: Per protocol CONTRAST: 100 cc Isovue 370 One or more dose reduction techniques were used (e.g., Automated exposure control, adjustment of the mA and/or kV according to patient size, use of iterative reconstruction technique). RADIATION DOSE SUMMARY: DLP: 889.78 mGycm COMPARISON: None FINDINGS: Hardware: Breast implants are noted. Lymph nodes: There is no pathologic adenopathy by size criteria. Heart: Unremarkable RV/LV Diameter Ratio: 0.8 Thoracic Aorta: Unremarkable Pulmonary Vessels: Pulmonary artery Hounsfield units = 347. there is no visible pulmonary embolus. Lungs and Airways: Clear Pleura: There is no pneumothorax or effusion Upper Abdomen: Reported separately Bones: There is no acute bony abnormality. CT/CTA Chest W/WO Contrast IMPRESSION: There is no visible pulmonary embolus. Reading Location: [facility]
[2024-08-16 13:02] VITALS: BP 163/91
[2024-08-16 13:14] LABS: ALB/GLOB Ratio 1.4 RATIO (0.9-2.4); AST(SGOT) 17 U/L (<=31); Alanine Aminotransfer ALT/SGPT 18 U/L (<=34); Albumin, Serum 4.1 g/dL (3.5-5.0); Alkaline Phosphatase 66 U/L (35-104); Anion Gap 10 (5-15); BUN 13 mg/dL (4-19); BUN/Creat Ratio 20.6 RATIO (10-20); Calcium,Total 9.1 mg/dL (7.6-11.0); Carbon Dioxide 22.7 mmol/L (21.0-32.0); Chloride 104 mmol/L (98-108); Creatinine, Serum 0.62 mg/dL (0.70-1.20); EST Glomerular Filtration Rate 108 (>60); Globulin 2.8 g/dL (2.2-4.2); Glucose 92 mg/dL (70-99); Lipase 31 U/L (13-75); Potassium 3.9 mmol/L (3.3-5.1); Protein, Total 6.9 g/dL (5.9-8.4); Sodium Level 137 mmol/L (133-145); Total Bilirubin 0.34 mg/dL (0.00-1.30); Troponin T High Sensitivity 6 ng/L (<=14)
[2024-08-16] MEDS: Lidocaine 2% Viscous15 ML UDC 15 ML PO (13:29)
[2024-08-16] MEDS: Mag Hydrox/Al Hydrox/Simeth 30 ML UDC PO (13:29)
[2024-08-16 13:34] VITALS: BP 143/88; PULSE 92; RESP 16; TEMP 36.1; O2SAT 97
== END 2024-08-16 13:42 | disposition home or self-care (01) ==
PROVIDERS: Physician Assistant; Emergency Provider Emergency Medicine; PCP Family Medicine; Referring Provider Emergency Medicine; Visit Provider Emergency Medicine
DX: R07.9 Chest pain, unspecified (principal); K29.70 Gastritis, unspecified, without bleeding; Z87.891 Personal history of nicotine dependence; I10 Essential (primary) hypertension; Z85.3 Personal history of malignant neoplasm of breast; Z90.13 Acquired absence of bilateral breasts and nipples; Z92.3 Personal history of irradiation; Z79.899 Other long term (current) drug therapy; R10.816 Epigastric abdominal tenderness
CPT/HCPCS: 71275; 74177; 80053; 83690; 84484; 85025; 93005; 96374; 99284; Q9967; A4216

== ENCOUNTER → 2024-08-23 | Outpatient (CLI) | payer OTHER, SELFPAY | END | disposition home or self-care (01) | LOC: LABSPEC 15:23 | PROVIDERS: PCP Family Medicine; Referring Provider Otolaryngology; Visit Provider Otolaryngology | DX: J32.8 Other chronic sinusitis (principal) | CPT/HCPCS: 87070; 87205 ==

== ENCOUNTER 2024-10-04 05:50 | Day surgery (SDC) | payer OTHER, SELFPAY ==
--- NOTE | 2024-09-28 11:48 | PAT.ANE_ITS ---
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 When Was Last Pacemaker Check QUESTION #4 FULL TEXT: You/Your Family Experience fever (hyperthermia) with Anesthesia Last Oral Intake Last Oral intake: Last Oral Intake NPO since Meds taken in AM with sips of water? Meds patient instructed to take am of surgery PONV PONV - oracle application architect: PONV - oracle application architect Female Yes 09/28/24 08:39 HX of Motion Sickness No 09/28/24 08:39 HX of N/V After Surgery Yes 09/28/24 08:39 Non-Smoker Yes 09/28/24 08:39 Duration of Surgery greater Yes 09/28/24 08:39 than 60 minutes Number of Risk Factors 4 09/28/24 08:39 PONV Score Severe Risk 09/28/24 08:39 Height & Weight Height & Weight: Anesthesia: Height & Weight Height 5 ft 5 in 09/26/24 13:03 Respiratory Assessment Respiratory Assessment - oracle application architect: Respiratory Tract Infection Hx - oracle application architect Hx Respiratory Tract Infection No 09/28/24 08:39 STOP Sleep Apnea STOP Sleep Apnea - oracle application architect: STOP Sleep Apnea - oracle application architect Hx Hypertension No 09/28/24 08:39 Hx Sleep Apnea No 09/28/24 08:39 CPAP No 10/06/21 13:22 BIPAP Do you snore loudly (louder Yes 09/28/24 08:39 than talking or can be heard Do you often feel tired/ Yes 09/28/24 08:39 fatigued/ sleepy during daytime? Has anyone observed you stop Yes 09/28/24 08:39 breathing during sleep? STOP Results Positive 09/28/24 08:39 QUESTION #5 FULL TEXT : Do you snore loudly (louder than talking or can be heard through closed doors)? 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 Specify any problems Hx of Preganancy in last 3 No 09/28/24 08:39 Months Nurse Filling Out Transfusion JZOLLVONNIE 09/28/24 08:39 & Questions: Date: 09/28/24 09/28/24 08:39 Time: 08:41 09/28/24 08:39 Patient unable to answer at this time (ie. confused, unrespo /Reproduction History /Reproductive History - oracle application architect: /Reproductive Hx- oracle application architect Hx Now No 09/28/24 08:39 Gestational Age (in weeks): EDC: Hx Hx Para Hx Section SAB No 09/28/24 08:39 PFSH Medical History (Updated 09/28/24 @ 08:39 by Ioana Anders) Wears glasses Hx of radiation therapy Arthritis Wears contact lenses Cancer Alcohol use Non-smoker Hypertension Left breast lump ASCUS of cervix with negative high risk HPV Complex cyst of right ovary Kidney stones, calcium oxalate Breast cancer Home Medications ?Medication ?Instructions ?Recorded ?Last Taken ?Type losartan 25 mg tablet 25 mg PO QHS 10/01/21 History fluticasone propionate 50 2 spray intranasal DAILY PRN 08/16/24 Unknown History mcg/actuation nasal allergy symptoms spray,suspension (24 Hour Allergy Relief) loratadine 10 mg tablet 10 mg PO QHS 08/16/24 History (Allerclear) Allergy/AdvReac Type Severity Reaction Status Date / Time No Known Allergies Allergy Verified 09/28/24 08:30 Family History Grandmother Breast cancer Hypertension Father Cancer prostate Surgical History (Updated 09/28/24 @ 08:39 by Ioana Anders) Hx of lymph node excision S/P lumpectomy, right breast History of mastectomy Hx of right breast biopsy Hx of right mastectomy H/O mastectomy Social History (Updated 09/26/24 @ 13:10 by Neena Evangelista) number of children: 2 current occupational status: employed 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 Sinus rhythm 90 bpm. Recommendation Anesthesia Recommendation Anesthesia recommendation: OPTIMIZED for anesthesia
[2024-10-04] VITALS (10 sets, daily range): BP systolic 108–148; BP diastolic 66–87; PULSE 62–86; RESP 14–18; TEMP 36.3–37.1; O2SAT 93–100
--- OUTSIDE RECORDS SUMMARY | 2024-10-04 05:54 | XMS RPT_ITS | CCD ---
Author Organization [facility] Care Team Providers Care Senior Librarian Name Role Phone Martha Andrews MD Unavailable [phone] NEENA KNOX Primary Care Unavailable NEENA KNOX Consulting Unavailable NEENA KNOX Attending Unavailable NEENA KNOX Admitting Unavailable PROVIDER, UNKNOWN Consulting Unavailable PROVIDER, UNKNOWN Consulting Unavailable NEENA KNOX Admitting Unavailable NEENA KNOX Primary Care Unavailable NEENA KNOX Consulting Unavailable NEENA KNOX Attending Unavailable PROVIDER, UNKNOWN Consulting Unavailable PROVIDER, UNKNOWN Consulting Unavailable Paul Godinez MD(Historical) Unavailable [phone] Neena Knox Primary Care Provider Dr. Neena Knox Primary Care Provider [phone] Dr. Neena Knox Referring Provider [phone] Barbosa Attending Provider [phone] Dr. Familia Bell Other Provider Paul Godinez MD(Historical) Unavailable [phone] Neena Knox Primary Care Provider Dr. Neena Knox Primary Care Provider [phone] Dr. Neena Knox Referring Provider Dr. Ellen Pryor Attending Provider [phone] Paul Godinez MD(Historical) Unavailable [phone] Neena Knox MD Primary Care Provider Dr. Neena Knox Primary Care Provider Dr. Neena Knox Referring Provider Dr. Martha Andrews Attending Provider Abilio CAT, Neena Maxwell Primary Care Provider Abilio CAT, Neena Arreola Primary Care Provider Adam Corona DO Unavailable Christianson PA-C, Radha Unavailable PROVIDER, UNKNOWN Referring Unavailable MIEDEL, NEENA E Primary Care Unavailable Jeanna Temple MD Unavailable ADAM CORONA Admitting Unavailable ADAM CORONA Attending Unavailable MIEDEL, NEENA E Primary Care Unavailable Dr. Neena Knox MD Primary Care Provider Dr. Matthew Bolaños MD Attending Provider Dr. Matthew Bolaños MD Referring Provider Miky CAT, Dr. Castro Emergency Provider Favian CAT, Dr. Fermin Attending Provider Dr. Zander Ballesteros MD Referring Provider PROVIDER, UNKNOWN Referring Unavailable MIEDEL, NEENA E Primary Care Unavailable PROVIDER, UNKNOWN Referring Unavailable MIEDEL, NEENA E Primary Care Unavailable CHRISTIANSON, RADHA Referring Unavailable MIEDEL, NEENA E Primary Care Unavailable CHRISTIANSON, RADHA Attending Unavailable CHRISTIANSON, RADHA Referring Unavailable MIEDEL, NEENA E Primary Care Unavailable MARILYNN PETERSEN Attending Unavailable MIEDEL, NEENA E Referring Unavailable MIEDEL, NEENA E Primary Care Unavailable ADAM CORONA Attending Unavailable ADAM CORONA Referring Unavailable MIEDEL, NEENA E Primary Care Unavailable ADAM CORONA Referring Unavailable MIEDEL, NEENA E Primary Care Unavailable ADAM CORONA Referring Unavailable MIEDEL, NEENA E Primary Care Unavailable ADAM CORONA Referring Unavailable MIEDEL, NEENA E Primary Care Unavailable ADAM CORONA Referring Unavailable MIEDEL, NEENA E Primary Care Unavailable ADAM CORONA Referring Unavailable MIEDEL, NEENA E Primary Care Unavailable ADAM CORONA Attending Unavailable MIEDEL, NEENA E Primary Care Unavailable BRANDY, DAESUNG Referring Unavailable MIEDEL, NEENA E Primary Care Unavailable BRANDY, DAJAMAALUNG Attending Unavailable MIEDEL, NEENA E Primary Care Unavailable BRANDY, DAESUNG Referring Unavailable MIEDEL, NEENA E Primary Care Unavailable BRANDY, DAESUNG Referring Unavailable MIEDEL, NEENA E Primary Care Unavailable BRANDY, DAJAMAALUNG Attending Unavailable MIEDEL, NEENA E Primary Care Unavailable BRANDY, DAESUNG Referring Unavailable MIEDEL, NEENA E Primary Care Unavailable ADAM CORONA Referring Unavailable MIEDEL, NEENA E Primary Care Unavailable ADAM CORONA Attending Unavailable MIEDEL, NEENA E Primary Care Unavailable BRANDY, DAJAMAALUNG Attending Unavailable MIEDEL, NEENA E Primary Care Unavailable BRANDY, DAESUNG Referring Unavailable MIEDEL, NEENA E Primary Care Unavailable BRANDY, DAESUNG Referring Unavailable MIEDEL, NEENA E Primary Care Unavailable BRANDY, DAESUNG Referring Unavailable MIEDEL, NEENA E Primary Care Unavailable BRANDY, DAESUNG Referring Unavailable MIEDEL, NEENA E Primary Care Unavailable BRANDY, DAESUNG Referring Unavailable MIEDEL, NEENA E Primary Care Unavailable BRANDY, DAESUNG Referring Unavailable MIEDEL, NEENA E Primary Care Unavailable BRANDY, DAJAMAALUNG Attending Unavailable MIEDEL, NEENA E Primary Care Unavailable BRANDY, DAESUNG Referring Unavailable MIEDEL, NEENA E Primary Care Unavailable JAY FAUST Referring Unavailable MIEDEL, NEENA E Primary Care Unavailable JAY FAUST Referring Unavailable MIEDEL, NEENA E Primary Care Unavailable BRANDY, DAJAMAALUNG Attending Unavailable SELF Referring Unavailable MIEDEL, NEENA E Primary Care Unavailable MIEDEL, NEENA E Primary Care Unavailable JAY FAUST Attending Unavailable BRANDY, DAESUNG Referring Unavailable MIEDEL, NEENA E Primary Care Unavailable BRANDY, DAESUNG Referring Unavailable MIEDEL, NEENA E Primary Care Unavailable BRANDY, DAESUNG Referring Unavailable MIEDEL, NEENA E Primary Care Unavailable BRANDY, DAESUNG Referring Unavailable MIEDEL, NEENA E Primary Care Unavailable BRANDY, DAESUNG Referring Unavailable MIEDEL, NEENA E Primary Care Unavailable BRANDY, DAESUNG Referring Unavailable MIEDEL, NEENA E Primary Care Unavailable BRANDY, DAESUNG Referring Unavailable MIEDEL, NEENA E Primary Care Unavailable BRANDY, DAESUNG Referring Unavailable MIEDEL, NEENA E Primary Care Unavailable JAY FAUST Attending Unavailable MIEDEL, NEENA E Primary Care Unavailable BRANDY, DAESUNG Referring Unavailable MIEDEL, NEENA E Primary Care Unavailable BRANDY, DAESUNG Referring Unavailable MIEDEL, NEENA E Primary Care Unavailable BRANDY, DAJAMAALUNG Attending Unavailable MIEDEL, ENENA E Primary Care Unavailable BRANDY, DAESUNG Referring Unavailable MIEDEL, NEENA E Primary Care Unavailable BRANDY, DAESUNG Attending Unavailable MIEDEL, NEENA E Primary Care Unavailable MIEDEL, NEENA E Primary Care Unavailable JAY FAUST Attending Unavailable ADAM CORONA Referring Unavailable MIEDEL, NEENA E Primary Care Unavailable BRANDY, DAESUNG Attending Unavailable MIEDEL, NEENA E Primary Care Unavailable BRANDY, DAJAMAALUNG Attending Unavailable MIEDEL, NEENA E Primary Care Unavailable ADAM CORONA Referring Unavailable MIEDEL, NEENA E Primary Care Unavailable BRANDY, DAESUNG Attending Unavailable BRANDY, DAESUNG Referring Unavailable MIEDEL, NEENA E Primary Care Unavailable BRANDY, DAESUNG Referring Unavailable BRANDY, DAESUNG Attending Unavailable MIEDEL, NEENA E Primary Care Unavailable BRANDY, DAESUNG Referring Unavailable MIEDEL, NEENA E Primary Care Unavailable BRANDY, DAESUNG Referring Unavailable MIEDEL, NEENA E Primary Care Unavailable BRANDY, DAESUNG Referring Unavailable MIEDEL, NEENA E Primary Care Unavailable MIEDEL, NEENA E Primary Care Unavailable BRANDY, DAESUNG Referring Unavailable MIEDEL, NEENA E Primary Care Unavailable MIEDEL, NEENA E Primary Care Unavailable BRANDY, DAESUNG Referring Unavailable MIEDEL, NEENA E Primary Care Unavailable BRANDY, DAESUNG Referring Unavailable MIEDEL, NEENA E Primary Care Unavailable Abilio CAT, Dr. Chaudhary Referring Provider [phone] Dr. Ellen Pryor DO Attending Provider Ellen Pryor Attending [facility] Referring Unavailable [facility] Primary Care Unavailable Ellen Pryor Attending [facility] Primary Care Unavailable Ellen Pryor Referring [facility] Attending Unavailable [facility] Referring Unavailable [facility] Primary Care Unavailable Zander Ballesteros Attending [facility] Unavailable Zander Ballesteros Referring Zander dAams Attending Zander Adams Referring [facility] Unavailable [facility] Primary Care Unavailable Matthew Bolaños Attending Unavailable Matthew Bolaños Referring Unavailable Medications Current Medications Medication Drug Class(es) Dates Sig (Normalized) Sig (Original) fluticasone propionate 0.05 mg/actuat metered dose nasal spray (20 sources) Corticosteroid Start: 08-16-2024 take 50 ug nasal route once daily as needed Fluticasone Propionate (24 Hour Allergy Relief) 50 mcg/actuation spray,suspension Active 2 NMA INTRANASAL DAILY as needed for allergy symptoms August 16, 2024 12:00am administer into each nostril Start: 09-09-2015 take 1 spray(s) nasa l route once daily at bedtime fluticasone (FLONASE) 50 mcg/actuation nasal spray Indications: Eustachian tube dysfunction Use 1 [place] in each nostril daily at bedtime. 3 Bottle 3 09/09/2015 Active Comment on above: Use 1 [place] in each nostril daily at bedtime. loratadine 10 mg oral tablet (20 sources) Start: 5 take 1 tablet by mouth at bedtime Loratadine (Allerclear) 10 mg tablet Active 10 mg PO AT BEDTIME August 16, 2024 12:00am losartan potassium 25 mg oral tablet (20 sources) Angiotensin 2 Receptor Ayana Start: 2 take 1 tablet by mouth at bedtime Losartan 25 mg Tablet Active 25 mg PO AT BEDTIME October 01, 2021 12:00am Start: 06-14-2019 End: 04-30-2021 take 1 tablet by mouth once daily Losartan 25 mg tablet Discontinued 25 mg PO DAILY June 14, 2019 1:00am April 30, 2021 10:53am Comment on above: Take 25 mg by mouth once daily. valACYclovir 1000 mg oral tablet (20 sources) Herpesvirus Nucleoside Analog DNA Polymerase Inhibitor, Herpes Simplex Virus Nucleoside Analog DNA Polymerase Inhibitor, Herpes Zoster Virus Nucleoside Analog DNA Polymerase Inhibitor Start: take 2 tablets by mouth twice daily as needed valACYclovir (VALTREX) 1 gram tablet TAKE TWO TABLETS BY MOUTH TWICE DAILY for TWO days NEEDED for cold SORE 03/29/2024 Active Completed/Discontinued Medications Medication Drug Class(es) Dates Sig (Normalized) Sig (Original) 200 actuat albuterol 0.09 mg/actuat dry powder inhaler (20 sources) beta2-Adrenergic Agonist Start: 10-01-2021 End: 07-11-2023 Albuterol Sulfate 90 mcg/actuation Aerosol Powdr Breath Activated Discontinued 1 NMA INHALATION EVERY 6 HOURS as needed for SOB October 01, 2021 12:00am July 11, 2023 2:54pm Start: 10-01-2021 End: 07-11-2023 Albuterol Sulfate Discontinu ed 1 INH INHALATION EVERY 6 HOURS October 01, 2021 12:00am July 11, 2023 2:54pm Start: 02-22-2018 take 1 puff(s) by mo [facility] every four hours as needed for wheezing albuterol HFA (PROAIR HFA) 90 mcg/actuation inhaler inhale 1 puff by mouth every 4 hours as needed for wheezing/shortnessof breath. as directed 3 Each 3 02/22/2018 Active Comment on above: inhale 1 puff by duong every 4 hours as needed for wheezing/shortnessof breath. as directed amoxicillin 875 mg / clavulanate 125 mg oral tablet (10 sources) Penicillin-class Antibacterial Start: 08-16-2024 End: 09-26-2024 Amoxicillin-Pot Clavulanate 875-125 mg tablet Discontinued 1 {tbl} PO TWICE A DAY August 16, 2024 12:00am September 26, 2024 1:09pm Start: 08-04-2024 End: 09-20-2024 take 1 tablet by mouth every twelve hours amoxicillin-clavulanate potassium (AUGMENTIN) 875-125 mg per tablet Take 1 tablet by mouth every 12 hours. 08/04/2024 09/20/2024 Discontinued (Other) amoxicillin/potassium clav (AUGMENTIN ORAL) (8 sources) End: 09-20-2024 amoxicillin/potassium clav (AUGMENTIN ORAL) Take by mouth. 09/20/2024 Discontinued (Other) amoxicillin/pota ssium clav (AUGMENTIN ORAL) Take by mouth. Active Beclomethasone Dipropionate (5 sources) Corticosteroid Start: 05-06-2022 End: 07-11-2023 take 40 ug by inhalation twice daily Beclomethasone Dipropionate (Qvar Redihaler) 40 mcg/actuation HFA aerosol breath activated Discontinued 2 NMA INHALATION TWICE A DAY May 06, 2022 1:00am July 11, 2023 2:54pm Start: 05-06-2022 End: 07-11-2023 take 40 ug by inhalation twice daily Beclomethasone Dipropionate (Qvar Redihaler) 40 mcg/actuation HFA aerosol breath activated Discontinued 2 INH INHALATION TWICE A DAY May 06, 2022 1:00am July 11, 2023 2:54pm Start: 05-06-2022 take 40 ug by inhala tion twice daily Beclomethasone Dipropionate (Qvar Redihaler) 40 mcg/actuation HFA aerosol breath activated Active 2 INH INHALATION TWICE A DAY May 06, 2022 12:00am enteric contrast (will be provided with radiology test) (20 sources) Start: 06-07-2024 End: 07-22-2024 enteric contrast (will be provided with radiology test) Indications: Recurrent breast cancer, right (HCC) , Personal history of breast cancer For CT ABD/PEL W IVCON Routine order Administer, As Directed One Time Only, via Oral, Rectal, both Oral and Rectal, Enteric Tube, Stoma or Indwelling Catheter, Enteric Contrast as designated per enteric contrast guidelines 1 Each 06/07/2024 07/22/2024 Discontinued Start: 06-07-[address] (will be provided with radiology test) Indications: Recurrent breast cancer, right (HCC) , Personal history of breast cancer For CT ABD/PEL W IVCON Routine order Administer, As Directed One Time Only, via Oral, Rectal, both Oral and Rectal, Enteric Tube, Stoma or Indwelling Catheter, Enteric Contrast as designated per enteric contrast guidelines 1 Each 06/07/2024 Active fluconazole 150 mg oral tablet (6 sources) Azole Antifungal Start: 04-29-2020 End: 04-30-2021 Fluconazole (Diflucan) 150 mg tablet Discontinued 150 mg PO Every 3 Days 2 0 April 29, 2020 1:00am April 30, 2021 10:52am may repeat second dose 72 hrs after first dose if symptoms persist iv contrast (will be provided with radiology test) (20 sources) Start: 06-07-2024 End: 07-22-2024 iv contrast (will be provided with radiology test) Indications: Recurrent breast cancer, right (HCC) , Personal history of breast cancer CT ABD/PEL -Inject, intravenously, once for 1 dose.No IV access, insert saline lock prior to the beginning of sedation, infusion, injection of imaging exam. Discontinue saline lock post exam. If Pt. has a central line or IVAD, may access for administration according to line specific nursing protocol. Once exam is complete flush line and de-access according to line specific nursing protocol in the CT contrast administration guidelines link. 1 Each 06/07/2024 07/22/2024 Discontinued Start: 06-07-2024 End: 07-22-2024 iv contrast (will be provide d with radiology test) Indications: Recurrent breast cancer, right (HCC) , Personal history of breast cancer CT Chest W -Inject, intravenously, once for 1 dose.No IV access, insert saline lock prior to the beginning of sedation, infusion, injection of imaging exam. Discontinue saline lock post exam. If Pt. has a central line or IVAD, may access for administration according to line specific nursing protocol. Once exam is complete flush line and de-access according to line specific nursing protocol in the CT contrast administration guidelines link. 1 Each 06/07/2024 07/22/2024 Discontinued Start: 06-07-2024 iv contrast (w ill be provided with radiology test) Indications: Recurrent breast cancer, right (HCC) , Personal history of breast cancer CT ABD/PEL -Inject, intravenously, once for 1 dose.No IV access, insert saline lock prior to the beginning of sedation, infusion, injection of imaging exam. Discontinue saline lock post exam. If Pt. has a central line or IVAD, may access for administration according to line specific nursing protocol. Once exam is complete flush line and de-access according to line specific nursing protocol in the CT contrast administration guidelines link. 1 Each 06/07/2024 Active Start: 06-07-2024 iv contrast (w ill be provided with radiology test) Indications: Recurrent breast cancer, right (HCC) , Personal history of breast cancer CT Chest W -Inject, intravenously, once for 1 dose.No IV access, insert saline lock prior to the beginning of sedation, infusion, injection of imaging exam. Discontinue saline lock post exam. If Pt. has a central line or IVAD, may access for administration according to line specific nursing protocol. Once exam is complete flush line and de-access according to line specific nursing protocol in the CT contrast administration guidelines link. 1 Each 06/07/2024 Active Start: 05-23-2024 End: 05-24-2024 iv contrast (will be provide d with radiology test) Indications: Breast disorder MRI Breast DANE Inject, intravenously, once for 1 dose. No IV access, insert saline lock prior to the beginning of sedation, infusion, injection of imaging exam. Discontinue saline lock post exam. If Pt has a central line or IVAD, may access for administration according to line specific nursing protocol. 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 No IV access, insert saline lock prior to the beginning of sedation, infusion, injection of imaging exam. Discontinue saline lock post exam. If Pt has a central line or IVAD, may access for administration according to line specific nursing protocol. Once exam is complete flush line and de-access according to line specific nursing protocol in the MR contrast administration guidelines link 1 Each 12/29/2023 12/30/2023 Active L.acid/B.animalis,bifidum/FO S (PROBIOTIC COMPLEX ORAL) (11 sources) End: 05-31-2024 L.acid/B.animalis,bifidum/FO S (PROBIOTIC COMPLEX ORAL) Take by mouth once daily. [employer] 90 billion cells 05/31/2024 Discontinued L.acid/B.animali s,bifidum/FOS (PROBIOTIC COMPLEX ORAL) Take by mouth once daily. [employer] 90 billion cells Active L.acid/B.animali s,bifidum/FOS (PROBIOTIC COMPLEX ORAL) Take by mouth once daily. [employer] 90 billion cells 0 Active lactobacillus acidophilus [id number] unt oral capsule (11 sources) End: 05-31-2024 Lactobacillus acidophilus (PROBIOTIC) 10 billion cell cap Take by mouth once daily. [employer] 05/31/2024 Discontinued Lactobacillus Combination No.4 (Probiotic) 3 billion cell capsule (3 sources) Start: 07-11-2023 End: 08-16-2024 take 3 capsules by mouth once daily Lactobacillus Combination No.4 (Probiotic) 3 billion cell capsule Discontinued 3000 NMA PO DAILY July 11, 2023 12:00am August 16, 2024 12:40pm administer with a meal Start: 07-11-2023 take 3 capsules by m outh once daily Lactobacillus Combination No.4 (Probiotic) 3 billion cell capsule Active 3000 MMU CELLS PO DAILY July 11, 2023 12:00am administer with a meal 10 ml lidocaine hydrochloride 20 mg/ml injection (1 source) Antiarrhythmic, Amide Local Anesthetic Start: 05-21-2024 End: 05-21-2024 SUBCUTANEOUS, X (OR/PROCEDURE) PRN, Starting on Tue05/21/24 at 1017, Until Tue05/21/24 at 1017, Intraprocedure OREGANO OIL ORAL (20 sources) End: 06-20-2024 OREGANO OIL ORAL Take by mouth. Intermittently for sinus congestion 06/20/2024 Discontinued (Other) OREGANO OIL ORAL Take by mouth. Intermittently for sinus congestion Active OREGANO OIL ORAL Take by mouth. Intermittently for sinus congestion 0 Active Comment on above: Take by mouth. Inter mittently for sinus congestion oxymetazoline hydrochloride 0.5 mg/ml nasal spray (2 sources) Start: 08-17-19 End: 09-27-19 Oxymetazoline (12 Hour Nasal Relief [place]) 0.05 % spray,non-aerosol Discontinued 2 NMA INTRANASAL TWICE A DAY as needed for nasal congestion August 16, 2024 12:00am September 26, 2024 1:09pm pantoprazole 40 mg delayed release oral tablet (8 sources) Proton Pump Inhibitor Start: 08-17-19 End: 09-27-19 take 1 tablet by mouth once daily Pantoprazole (Protonix) 40 mg tablet,delayed release (DR/EC) Discontinued 40 mg PO DAILY August 16, 2024 12:00am September 26, 2024 1:09pm End: 09-20-2024 pantoprazole sodium (PROTONI X ORAL) Take by mouth. stomach upset after Augemntin per ER is improving 09/20/2024 Discontinued pantoprazole sod ium (PROTONIX ORAL) Take by mouth. stomach upset after Augemntin per ER is improving Active predniSONE 20 mg oral tablet (9 sources) Start: 08-04-2024 End: 09-20-2024 take 2 tablets by mouth once daily predniSONE (DELTASONE) 20 mg tablet Take 2 tablets by mouth once daily. 08/04/2024 09/20/2024 Discontinued tamoxifen 10 mg oral tablet (20 sources) Estrogen Agonist/Antagoni st Start: 04-28-2020 End: 04-30-2021 take 1 tablet by mouth twice daily Tamoxifen 10 mg tablet Discontinued 10 mg PO TWICE A DAY April 28, 2020 1:00am April 30, 2021 10:53am Start: 08-10-2019 End: 05-31-2024 take 1 tablet by mouth once daily tamoxifen (NOLVADEX) 20 mg tablet Take 1 tablet (20 mg) by mouth once daily. 90 tablet 3 08/10/2019 05/31/2024 Discontinued Comment on above: Take 1 tablet (20 mg ) by mouth once daily. Problems Active Problems Problem Classification Problem Date Documented Date Episodic/Chronic Abdominal pain (1 source) Left upper quadrant pain; Translations: [Left upper quadrant pain] 08-16-2024 Episodic Calculus of urinary tract (20 sources) Urolithiasis ; Translations: [Urinary calculus, unspecified] 07-08-2008 Episodic Cancer of breast (20 sources) Malignant neoplasm of upper-outer quadrant of female breast; Translations: [Malignant neoplasm of upper-outer quadrant of right female breast] Onset: 03-22-2015 03-22-2015 Chronic Cancer of breast (20 sources) History of malignant neoplasm of breast; Translations: [Personal history of malignant neoplasm of breast] Onset: 07-09-2013 Episodic Comment on above: right mastectomy 201 5. empower test ordered, positive variant CHEK2 detected and VUS RAD50. Pt notified and report sent to her Cancer of cervix (20 sources) Atypical squamous cells of undetermined significance on cervical Papanicolaou smear; Translations: [Atypical squamous cells of undetermined significance on cytologic smear of cervix (ASC-US)] Onset: 06-23-2006 Resolved: 05-07-2010 06-14-2019 Episodic Comment on above: 2017 pos hpv 2019 ne g, repeat pap and hpv in 2021 Essential hypertension (20 sources) Essential hypertension; Translations: [Essential (primary) hypertension] Onset: 07-09-2019 07-09-2019 Chronic Gastritis and duodenitis (2 sources) Gastritis; Translations: [Gastritis, unspecified, without bleeding] 08-24-2024 Episodic Menopausal disorders (4 sources) Menopausal syndrome; Translations: [Menopausal and female climacteric states] 07-11-2023 Chronic Comment on above: cbc tsh ordered Nonmalignant breast conditions (14 sources) Breast lump; Translations: [Unspecified lump in the left breast, unspecified quadrant] Onset: 06-01-2024 04-30-2021 Episodic Comment on above: implant present, nichole ging ordered. recommend gen surg consult if no resolution or abnormal imaging. h/o right breast cancer in 2014. Patient has had bilateral mastectomy Nonspecific chest pain (4 sources) Chest wall pain; Translations: [Other chest pain] Onset: 08-21-2024 Episodic Other female genital disorders (20 sources) Premenstrual tension syndrome; Translations: [Premenstrual tension syndrome] Onset: 07-06-2012 07-06-2012 Chronic Other female genital disorders (6 sources) Finding of pelvis; Translations: [Unspecified condition associated with female genital organs and menstrual cycle] 04-23-2019 Episodic Comment on above: r ovary enlarged ord ered [facility] Other screening for suspected conditions (not mental disorders or infectious disease) (20 sources) Breast cancer genetic marker of susceptibility negative; Translations: [Encounter for nonprocreative screening for genetic disease carrier status] Onset: 05-29-2013 07-03-2019 Episodic Other skin disorders (2 sources) Mass of chest wall; Translations: [Localized swelling, mass and lump, trunk] 05-04-2024 Episodic Other upper respiratory infections (2 sources) Other chronic sinusitis; Translations: [Chronic sinusitis, unspecified] Onset: 04-30-2024 Chronic Ovarian cyst (6 sources) Complex cyst of right ovary; Translations: [Other ovarian cyst, right side] 04-28-2020 Episodic Comment on above: 3 cm, repeat us orde red to confirm stability this year. nl cea and ca125 Residual codes; unclassified (20 sources) History of bilateral breast implants; Translations: [Breast implant status] Onset: 02-28-2014 02-28-2014 Chronic Residual codes; unclassified (1 source) Breast implant status; Translations: [S/P bilateral breast implants] Onset: 05-14-2024 Chronic Residual codes; unclassified (6 sources) Genetic mutation; Translations: [Genetic susceptibility to malignant neoplasm of breast] Episodic Residual codes; unclassified (20 sources) History of right mastectomy; Translations: [Acquired absence of right breast and nipple] Onset: 07-16-2013 07-16-2013 Episodic Comment on above: 06/2014 Residual codes; unclassified (6 sources) Positive measurement finding; Translations: [Positive test for human papillomavirus (HPV)] 04-23-2019 Episodic Comment on above: 03/04- repeat pap an d hpv in 1 year Residual codes; unclassified (6 sources) Past history of procedure; Translations: [Other specified postprocedural states] 04-28-2020 Episodic Comment on above: 06/2014 Residual codes; unclassified (3 sources) Family history of breast cancer; Translations: [Family history of malignant neoplasm of breast] 09-20-2023 Episodic Spondylosis; intervertebral disc disorders; other back problems (2 sources) Cervical spondylosis without myelopathy; Translations: [Spondylosis without myelopathy or radiculopathy, cervical region] Onset: 06-20-2024 06-20-2024 Chronic Thyroid disorders (2 sources) Non-toxic uninodular goiter; Translations: [Nontoxic single thyroid nodule] Onset: 06-20-2024 06-20-2024 Chronic Unclassified (2 sources) Screening for malignant neoplasm of cervix ; Translations: [Encounter for screening for malignant neoplasm of cervix] Onset: 03-17-2017 03-17-2017 Unclassified (2 sources) Gynecologic examination ; Translations: [Encounter for gynecological examination (general) (routine) without abnormal findings] Onset: 03-17-2017 03-17-2017 Unclassified (1 source) Radiotherapy On-treatment Visit Onset: 09-12-2024 Past or Other Problems Problem Classification Problem Date Documented Date Episodic/Chronic Contraceptive and procreative management (20 sources) Intrauterine contraceptive device in situ; Translations: [Presence of (intrauterine) contraceptive device] Onset: 05-14-2010 Resolved: 07-06-2012 07-06-2012 Episodic Immunizations and screening for infectious disease (2 sources) Encounter for screening for human papillomavirus (HPV); Translations: [Encounter for screening for human papillomavirus (HPV)] Onset: 03-17-2017 03-17-2017 Episodic Nausea and vomiting (20 sources) Postoperative nausea and vomiting; Translations: [Nausea with vomiting, unspecified] Onset: 07-19-2019 07-20-2019 Episodic Other aftercare (20 sources) 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; 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 (SERMs)] Onset: 07-16-2013 07-16-2013 Episodic Other female genital disorders (20 sources) History of dysplasia of cervix; Translations: [Personal history of cervical dysplasia] Onset: 05-07-2010 04-13-2021 Episodic Other female genital disorders (20 sources) Cervical intraepithelial neoplasia grade 2; Translations: [Moderate cervical dysplasia] Resolved: 05-14-2010 05-14-2010 Episodic Other skin disorders (1 source) Localized swelling, mass and lump, trunk; Translations: [Chest wall mass] Onset: 05-14-2024 Episodic Residual codes; unclassified (20 sources) Estrogen receptor positive tumor; Translations: [Estrogen receptor positive status [ER+]] Onset: 07-16-2013 07-16-2013 Episodic Residual codes; unclassified (1 source) Genetic susceptibility to malignant neoplasm of breast; Translations: [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] Onset: 05-14-2024 Episodic Residual codes; unclassified (1 source) Genetic susceptibility to other disease; Translations: [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] Onset: 05-14-2024 Episodic Residual codes; unclassified (1 source) Genetic susceptibility to other malignant neoplasm; Translations: [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] Onset: 05-14-2024 Episodic Residual codes; unclassified (1 source) Genetic susceptibility to malignant neoplasm of ovary; Translations: [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] Onset: 05-14-2024 Episodic Residual codes; unclassified (1 source) Acquired absence of bilateral breasts and nipples; Translations: [S/P bilateral mastectomy] Onset: 05-14-2024 Episodic Residual codes; unclassified (1 source) Family history of malignant neoplasm of breast; Translations: [Family history of breast cancer] Onset: 05-04-2024 Episodic Residual codes; unclassified (1 source) Estrogen receptor positive status [ER+]; Translations: [Malignant 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, estrogen receptor positive (HCC)] Onset: 06-01-2024 Episodic Results Test Name Value Interpretation Reference Range Facility MR/PAT.Li 09-28-2024 MR/PAT.[facility] Medical Records Department [address] [place] [address] PAT - Anesthesia 09/28/24 1148 MR#: [id number] Acct: [id number] Name: CARA SINGH Rep #: [id number] : 1975 49 From: Antonio Mathis MD PCP: Dr. 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 When Was Last Pacemaker Check QUESTION #4 FULL TEXT: You/Your Family Experience fever (hyperthermia) with Anesthesia Last Oral Intake Last Oral intake: Last Oral Intake NPO since Meds taken in AM with sips of water? Meds patient instructed to take am of surgery PONV PONV - washer and crusher tender: PONV - washer and crusher tender Female Yes 09/28/24 08:39 HX of Motion Sickness No 09/28/24 08:39 HX of N/V After Surgery Yes 09/28/24 08:39 Non-Smoker Yes 09/28/24 08:39 Duration of Surgery greater Yes 09/28/24 08:39 than 60 minutes Number of Risk Factors 4 09/28/24 08:39 PONV Score Severe Risk 09/28/24 08:39 Height Weight Height Weight: Anesthesia: Height Weight Height 5 ft 5 in 09/26/24 13:03 Respiratory Assessment Respiratory Assessment - washer and crusher tender: Respiratory Tract Infection Hx - washer and crusher tender Hx Respiratory Tract Infection No 09/28/24 08:39 STOP Sleep Apnea STOP Sleep Apnea - washer and crusher tender: STOP Sleep Apnea - washer and crusher tender Hx Hypertension No 09/28/24 08:39 Hx Sleep Apnea No 09/28/24 08:39 CPAP No 10/06/21 13:22 BIPAP Do you snore loudly (louder Yes 09/28/24 08:39 than talking or can be heard Do you often feel tired/ Yes 09/28/24 08:39 fatigued/ sleepy during daytime? Has anyone observed you stop Yes 09/28/24 08:39 breathing during sleep? STOP Results Positive 09/28/24 08:39 QUESTION #5 FULL TEXT : Do you snore loudly (louder than talking or can be heard through closed doors)? 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 Specify any problems Hx of Preganancy in last 3 No 09/28/24 08:39 Months Nurse Filling Out Transfusion CLARY 09/28/24 08:39 Questions: Date: 09/28/24 09/28/24 08:39 Time: 08:41 09/28/24 08:39 Patient unable to answer at this time (ie. confused, unrespo /Reproduction History /Reproductive History - washer and crusher tender: /Reproductive Hx- washer and crusher tender Hx Now No 09/28/24 08:39 Gestational Age (in weeks): EDC: Hx Hx Para Hx Section SAB No 09/28/24 08:39 [facility] Medical History (Updated 09/28/24 @ 08:39 by Ioana Anders) Wears glasses Hx of radiation therapy Arthritis Wears contact lenses Cancer Alcohol use Non-smoker Hypertension Left breast lump ASCUS of cervix with negative high risk HPV Complex cyst of right ovary Kidney stones, calcium oxalate Breast cancer Home Medications ???Medication ???Instructions ???Recorded ???Last Taken ???Type losartan 25 mg tablet 25 mg PO QHS 10/01/21 08/15/24 His tory fluticasone propionate 50 2 spray intranasal DAILY PRN 08/16 Unknown History mcg/actuation nasal allergy symptoms spray,suspension (24 Hour Allergy Relief) loratadine 10 mg tablet 10 mg PO QHS 08/16/24 08/16/24 His tory (Allerclear) Allergy/AdvReac Type Severity Reaction Status Date / Time No Known Allergies Allergy Verified 09/28/24 08:30 Family History ... 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 Ellen Modi, Age/Sex: 49/F Location: [facility] [place] Status: Signed Intake Vital Signs 07/11/23 14:45 08/16/24 11:02 09/26/24 13:02 09/26/24 13:03 Height 5 ft 5 in 5 ft 5 in 5 ft 5 in 5 ft 5 in Weight: 146 lb BMI 24.3 BP 147/83 H Intake Visit Reasons: Surgical Consult BS/due to breast cancer Vibrating Screen Operator Required: No Is patient in pain?: No Allergies No Known Allergies Allergy (Verified 09/26/24 13:02) Medications ???Medication ???Instructions ???Recorded ???Confirmed ???Type losartan 25 mg tablet 25 mg PO QHS 10/01/21 09/26/24 His tory fluticasone propionate 50 2 spray intranasal DAILY PRN 08/1609/26/24 History mcg/actuation nasal allergy symptoms spray,suspension (24 Hour Allergy Relief) loratadine 10 mg tablet 10 mg PO QHS 08/16/24 09/26/24 His tory (Allerclear) Post menopausal: No Patient : No : No PFSH Medical History (Updated 09/26/24 @ 13:[address] 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 She has had bilateral breast cancer, treated at [facility]. ER+, [place]+ Her 2 neg. She wants this done sonya so that she can start anastrozole therapy. She is ok with either myself or Dr. Andrews performing this. History 2 Elective abortions Hx Para 2 Spontaneous abortions Hx # Term Pregnancies Ectopic pregnancies Hx # Pregnancies Multiple births # of living children 2 Past Pregnancies Del. Date Name GA/Weeks Outcome Route Bth Weight Infant Gen Labor Lgth Anesthesia Del Locatn Provider FOB Unknown Lesly 2007 Unknown Nicholas 2009 ROS Const ROS Unobtainable: All systems reviewed are unremarkable except as noted in H Resp Resp: Reports system reviewed and no additional complaints, except as documented; Denies cough GI GI: Reports as per HPI Psych Psych: Reports system reviewed and no additional complaints, except as documented Exam Const General: cooperative, healthy appearing, comfortable and no acute distress Resp Effort Inspection: normal respiratory effort Skin General: no rashes or lesions noted Psych Appearance: grossly normal Speech and Movement: speech and movement normal Coding Level of Care Code Off vis,est,level 4 Diagnoses History of breast cancer Z85.3 Assessment and Plan Assessment and Plan (1) History of breast cancer: Status: Acute Comment: right mastectomy 2013. MOre recently underwent left masectomy and found to have invasive mammary cancer. empower test ordered, positive variant CHEK2 detected and VUS RAD50. Pt notified and report sent to her Plan: After discussing the patient's diagnosis and treatment plan options, patient wishes to proceed with surgical management. I have discussed with the patient the risks, benefits, and alternatives of the procedure which include but are not limited to risks of anesthesia, bleeding, infection, possible damage to bowel, bladder, or surrounding vasculature which could lead to additional surgery to evaluate any complications. Patient agrees to procedure and wishes to proceed. ACOG/uptodate references given for additional information regarding procedure. plan for laparoscopic BSO for better treatment for breast cancer. will call patient sonya with a date. 09/26/24 8438 Date (more content not included)... Normal [facility] CNOVSPon 09-20-2024 CNOVSP Visit (SP) Office (STACIE) CARA SINGH ([id number]) 1975 F Date Time Provider Department 09/20/24 9:50 AM JAY FAUST During your visit today, we recorded the following information about you: Temperature Pulse Blood pressure Weight 98.1 degrees 92/minute 169/84 66 kg Height 1.66 m Jay Faust DO 09/20/2024 11:11 AM Signed Oncologic problem(s): 1) Recurrent breast cancer. HPI: The patient is a 49 yo female who was diagnosed with a stage I (pT1a, N0) right breast cancer in 2013 following an abnormality found on her initial screening mammogram. Underwent a right-sided mastectomy along with sentinel lymph node biopsy on 06/20/2013. Pathology: A) SENTINEL LYMPH NODE #1, EXCISION: - One lymph node, negative for carcinoma (0/1). B) SENTINEL LYMPH NODE #2, EXCISION: - One lymph node, negative for carcinoma (0/1). C) SENTINEL LYMPH NODE #3, EXCISION: - One lymph node, negative for carcinoma (0/1). D) DISTAL TISSUE UNDER NIPPLE, RIGHT BREAST, EXCISION: - Negative for carcinoma. E) RIGHT BREAST, NIPPLE SPARING MASTECTOMY: - Invasive ductal carcinoma. - Ductal carcinoma in situ, nuclear grade 2, solid and cribriform types. - Changes consistent with prior biopsy site. - Surgical margins of resection are negative for carcinoma or carcinoma in situ. - See comment. COMMENT An immunohistochemical stain for p63 is negative in the focus of invasive carcinoma supporting the above diagnosis. BREAST (INVASIVE CARCINOMA) SYNOPTIC REPORT PROCEDURE: Total mastectomy (nipple sparing) LYMPH NODE SAMPLING: Gilson lymph nodes SPECIMEN LATERALITY: Right HISTOLOGIC TYPE OF INVASIVE CARCINOMA: Invasive ductal carcinoma TUMOR SIZE (GREATEST DIMENSION OF LARGEST FOCUS OF INVASION GREATER THAN 1 MM): 1.1 mm LIBERTY HISTOLOGIC GRADE: Grade 1 - GLANDULAR/TUBULAR DIFFERENTIATION: Score 1 - NUCLEAR PLEOMORPHISM: Score 2 - MITOTIC RATE: Score 2 TUMOR FOCALITY: Single focus of invasive carcinoma DUCTAL CARCINOMA IN SITU (DCIS): Present MACROSCOPIC/MICROSCOPI C EXTENT OF TUMOR: - Skin: Uninvolved by invasive carcinoma or carcinoma in situ MARGINS: Margins uninvolved by invasive carcinoma - - Distance of invasive carcinoma from closest margin: 9 mm from the anterior radial margin MARGINS: Margins uninvolved by DCIS - - Distance of DCIS from closest margin: 6 mm from the anterior radial margin LYMPH NODES: - Number of sentinel lymph nodes examined: 3 - Total number of lymph nodes examined (sentinel and non-sentinel): 3 - - Number of lymph nodes with macrometastasis: 0 - - Number of lymph nodes with micrometastasis: 0 - - Number of lymph nodes with isolated tumor cells: 0 LYMPH VASCULAR INVASION: Not identified PATHOLOGIC STAGING: pT1a pN0 (sn) pM - Not applicable ANCILLARY STUDIES: Previously performed, please see separate report [id number] for additional details. - Estrogen Receptors: Positive, greater than 95%; stain intensity is strong - Progesterone Receptors: Positive, 80%; stain intensity is moderate - HER2 (FISH): Not amplified She has bilateral implants. Her left implant was placed in November 2013 for symmetry and augmentation. She began tamoxifen on July 23, 2013. Stopped 05/2015 due to significant hot flashes and mood swings. OB found lump in left breast. Mammogram and US ?suggested cyst. Was referred to Dr. Garza US left breast : No prior exams were available for comparison. Ultrasound of the left breast 2 o'clock, and axilla regions was performed. Grady scale images of the real-time examination were reviewed. There is 0.9 cm x 0.6 cm x 0.9 cm lobulated mass with an indistinct margin in the left breast at 2 o'clock middle depth 5 cm from the nipple. This lobulated mass is hypoechoic. This correlates as palpated. IMPRESSION: SUSPICIOUS FINDING - BIOPSY SHOULD BE CONSIDERED The 0.9 cm x 0.6 cm x 0.9 cm lobulated mass in the left breast has a differential diagnosis of a solid mass or fat necrosis and is suspicious of malignancy. An ultrasound guided biopsy is recommended. Pathology: CORE BIOPSY OF LEFT BREAST (2 O'CLOCK, 5 CM FROM NIPPLE) - INVASIVE WELL DIFFERENTIATED MAMMARY CARCINOMA. COMMENT: The tumor has the architectural features of a lobular carcinoma with absence of tubule formation (tubule score =3) and a single file pattern of infiltration. There is grade 1 nuclear atypia and mitoses are not identified (mitotic score = 1) for a total Carpenter score of 5 corresponding to a grade 1 tumor. No in situ component is identified. No vascular invasion is found to be present. Despite having the typical histologic features of invasive lobular carcinoma, an E-cadherin immunostain reveals the tumor cells to be strongly positive. This suggests that the tumor may have mixed ductal and lobular features. A cytokeratin immunostain was performed (more content not included)... Normal [facility] CNPNon 09-20-2024 CNPN Telephone (HEMAWS) CARA SINGH ([id number]) 1975 F Date Time Provider Department 09/20/24 JAY FAUST During your visit today, we recorded the following information about you: Debby Henao 09/20/2024 10:45 AM Signed AVS 09/20 comments: Patient will send [employer] message with date of oophorectomy. Will determine follow up based on that. Pamela Gudino 09/20/2024 11:07 AM Signed Patient called stating she spoke with Dr. Bib Dutton's office and they said they didn't receive a referral. Once they do they will triage and call. At this time 1st available would be 10/15. Patient is asking to send referral and requesting to state [facility] to get in sooner. She is willing to go to another surgeon if she can get in sooner as well. Please advise Carol Ann Drake LPN 09/20/2024 11:58 AM Signed I spoke with Dr. Andrews's nurse. Patient does NOT need a referral and is scheduled for an OV to discuss oophorectomy on 09/26/2024. Once completed, I will fax today's OV note to Dr. Andrews's office. . RAJIV Scott Melanie NETWORK INTERN 09/20/2024 2:51 PM Signed Today's OV faxed to Dr. Andrews. Patient is aware of appointment with Dr. Andrews. Carol Ann Drake LPN Allergies As of Date: 09/20/2024 (No Known Allergies) Date Reviewed: 09/20/2024 Reviewed by: Jay Faust DO - Fully Assessed Prescriptions as of 09/20/2024 - valACYclovir (VALTREX) 1 gram tablet TAKE TWO TABLETS BY MOUTH TWICE DAILY for TWO days NEEDED for cold SORE - loratadine (CLARITIN) 10 mg tablet Take 10 mg by mouth once daily. - losartan (COZAAR) 25 mg tablet Take 25 mg by mouth once daily. - albuterol HFA (PROAIR HFA) 90 mcg/actuation inhaler inhale 1 puff by mouth every 4 hours as needed for wheezing/shortnessof breath. as directed - fluticasone (FLONASE) 50 mcg/actuation nasal spray Use 1 [place] in each nostril daily at bedtime. Problem List As Of Date 09/20/2024 Noted Resolved ASCUS favor dysplasia [R87.611] 06/23/2006 05/07/2010 URINARY CALCULUS NOS [N20.9] Moderate dysplasia of cervix [N87.1] 05/14/2010 Personal history of cervical dysplasia [Z87.410]05/07/2010 IUD (intrauterine device) in place [Z97.5] 05/14/2010 07/06/2012 PMS (premenstrual syndrome) [N94.3] 07/06/2012 Personal history of breast cancer [Z85.3] 07/09/2013 Status post right mastectomy [Z90.11] 07/16/2013 ER+ (estrogen receptor positive status) [Z17.0] 07/16/2013 Use of tamoxifen (Nolvadex) [Z79.810] 07/16/2013 Status post bilateral breast implants [Z98.82] 02/28/2014 Malignant neoplasm of upper-outer quadrant of r*03/22/2015 BRCA negative [Z13.71] 05/29/2013 Carcinoma of left breast in female, estrogen re*06/2019 Carcinoma of upper-outer quadrant of left breas*06/2019 Essential hypertension [I10] 07/09/2019 PONV (postoperative nausea and vomiting) [R11.2*07/19/2019 Malignant neoplasm of upper-inner quadrant of r*06/01/2024 Recurrent breast cancer, right (HCC) [C50.911] 06/07/2024 Encounter Status:Closed by DEBBY HENAO on 09/20/24 [facility] CNOVon 09-12-2024 CNOV Office Visit (RADTWS ) CARA SINGH ([id number]) 1975 F Date Time Provider Department 09/12/24 10:00 AM JEANNA TEMPLE During your visit today, we recorded the following information about you: Temperature Pulse Respiration Blood pressure 99.3 degrees 83/minute 16/minute 150/76 Layne King RN 09/12/2024 10:11 AM Signed Radiation Therapy - Nursing Note (OTV) PATIENT NAME: Cara Singh PATIENT September 12, 2024 [facility] FACILITY/LOCATION: [place] NURSING NOTE TYPE: BREAST Subjective Data Feel good Additional Data Do you want to see a Spool Tender? No Status: Patient states there is no possibility she is at this time. Stress Scale: On a scale of 0 to 10, what number best describes how much distress you have experienced in the past week?(0 being no distress and 10 being extreme distress) 1 Social work notified: Pt denied need to see social services aide at this time. Nursing Assessment Fatigue: none Appetite: good Nutritional Intake: Regular oral intake. Weight Gain/Loss: Not applicable Ambulatory weight history: Last 6 Encounter Wt Readings: Date: Wt: 08/16/2024 65.9 kg (145 lb 4.5 oz) 07/26/2024 66.9 kg (147 lb 7.8 oz) 07/19/2024 66.2 kg (146 lb) 06/25/2024 65.8 kg (145 lb) 06/20/2024 65.8 kg (145 lb) 06/07/2024 66.6 kg (146 lb 13.2 oz) Nausea:None Vomiting: None Bowel Function: normal bowel movements Erythema/Hyperpigmenta tion:none Desquamation:none Rash:none Skin Care: Aquaphor Skin Sensation: mild itching and mild burning Focused Assessment BREAST: Not applicable. SIGNED by: KUSUM Benton Daesung, MD 09/12/2024 10:11 AM Signed Radiation Oncology - On Treatment Review (OTR) Note PATIENT NAME: Cara Singh PATIENT DIAGNOSIS: Local only recurrence of right breast cancer s/p local excision on 07/06/24. History of stage I, pT1a pN0 (sn), grade 1 invasive ductal carcinoma of the right breast in 2013 treated with right mastectomy and sentinel node biopsy 06/20/13 and then bilateral breast implants. Also h/o stage I, pT1b pN0, grade 1 invasive lobular carcinoma of the left breast in 2019 treated with left mastectomy and axillary node dissection on 07/19/19. COURSE: post-operative AREA TREATED: Right chest wall/IM/SC/axilla CURRENT DOSE: 5200 cGy in 26 fx PLANNED DOSE: 6000 cGy in 30 fx Status: Patient states there is no possibility she is at this time SUBJECTIVE: She has mild pruritus. EXAM: KPS: 90 General Appearance: Alert and oriented. No acute distress. Radiation dermatitis: Moderate IMAGING/LAB RESULTS: None Treatment chart checked: Yes Patient treatment site reviewed and verified:Yes Port films reviewed and current:Yes Medications started: None ASSESSMENT/PLAN: Clinically stable. Toxicity within expected parameters. Continue radiation treatment as planned. Jeanna Temple MD Allergies As of Date: 09/12/2024 (No Known Allergies) Date Reviewed: 09/12/2024 Reviewed by: Layne King RN - Fully Assessed Reason for Visit: Radiotherapy On-treatment Visit [1722] Primary Visit Diagnosis:Malignant 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, estrogen receptor positive (HCC) [C50.211, Z17.0] Prescriptions as of 09/12/2024 - pantoprazole sodium (PROTONIX ORAL) Take by mouth. stomach upset after Augemntin per ER is improving - amoxicillin/potassium clav (AUGMENTIN ORAL) Take by mouth. - predniSONE (DELTASONE) 20 mg tablet Take 2 tablets by mouth once daily. - amoxicillin-clavulanat e potassium (AUGMENTIN) 875-125 mg per tablet Take 1 tablet by mouth every 12 hours. - valACYclovir (VALTREX) 1 gram tablet TAKE TWO TABLETS BY MOUTH TWICE DAILY for TWO days NEEDED for cold SORE - loratadine (CLARITIN) 10 mg tablet Take 10 mg by mouth once daily. - losartan (COZAAR) 25 mg tablet Take 25 mg by mouth once daily. - albuterol HFA (PROAIR HFA) 90 mcg/actuation inhaler inhale 1 puff by mouth every 4 hours as needed for wheezing/shortnessof breath. as directed - fluticasone (FLONASE) 50 mcg/actuation nasal spray Use 1 [place] in each nostril daily at bedtime. Problem List As Of Date 09/12/2024 Noted Resolved ASCUS favor dysplasia [R87.611] 06/23/2006 05/07/2010 URINARY CALCULUS NOS [N20.9] Moderate dysplasia of cervix [N87.1] 05/14/2010 Personal history of cervical dysplasia [Z87.410]05/07/2010 IUD (intrauterine device) in place [Z97.5] 05/14/2010 07/06/2012 PMS (premenstrual syndrome) [N94.3] 07/06/2012 Personal history of breast cancer [Z85.3] 07/09/2013 Status post right mastectomy [Z90.11] 07/16/2013 ER+ (estrogen receptor positive status) [Z17.0] 07/16/2013 Use of tamoxifen (Nolvadex) [Z79.810] 07/16/2013 Status post bilateral breast implants [Z98.82] 02/28/2014 Malignant neoplasm of upper-outer quadrant of r*12/0 (more content not included)... Normal [facility] CNOVon 09-04-2024 CNOV Office Visit (RADTWS ) CARA SINGH ([id number]) 1975 F Date Time Provider Department 09/04/24 10:00 AM JEANNA TEMPLE During your visit today, we recorded the following information about you: Temperature Pulse Blood pressure 98.4 degrees 84/minute 152/78 Ita Taylor RN 09/04/2024 10:18 AM Signed Radiation Therapy - Nursing Note (OTV) PATIENT NAME: Cara Singh PATIENT September 04, 2024 [facility] FACILITY/LOCATION: [facility] NOTE TYPE: BREAST Subjective Data Has a concern about area above scar that she feels is thicker or swollen Additional Data Do you want to see a Spool Tender? No Status: Patient states there is no possibility she is at this time. Stress Scale: On a scale of 0 to 10, what number best describes how much distress you have experienced in the past week?(0 being no distress and 10 being extreme distress) 1 Social work notified: Pt denied need to see social services aide at this time. Nursing Assessment Fatigue: increased fatigue over baseline but not altering normal activities Appetite: good Nutritional Intake: Regular oral intake. Weight Gain/Loss: Not applicable Ambulatory weight history: Last 6 Encounter Wt Readings: Date: Wt: 08/16/2024 65.9 kg (145 lb 4.5 oz) 07/26/2024 66.9 kg (147 lb 7.8 oz) 07/19/2024 66.2 kg (146 lb) 06/25/2024 65.8 kg (145 lb) 06/20/2024 65.8 kg (145 lb) 06/07/2024 66.6 kg (146 lb 13.2 oz) Nausea:None Vomiting: None Bowel Function: normal bowel movements Erythema/Hyperpigmenta tion:moderate Desquamation:none Rash:none Skin Care: Aquaphor Skin Sensation: mild to moderate varies itching Focused Assessment BREAST: Lymphedema Assessment: Is the patient noting any swelling? No. SIGNED by: KUSUM Moncada Daesung, MD 09/04/2024 10:18 AM Signed Radiation Oncology - On Treatment Review (OTR) Note PATIENT NAME: Cara Singh PATIENT DIAGNOSIS: Local only recurrence of right breast cancer s/p local excision on 07/06/24. History of stage I, pT1a pN0 (sn), grade 1 invasive ductal carcinoma of the right breast in 2013 treated with right mastectomy and sentinel node biopsy 06/20/13 and then bilateral breast implants. Also h/o stage I, pT1b pN0, grade 1 invasive lobular carcinoma of the left breast in 2019 treated with left mastectomy and axillary node dissection on 07/19/19. COURSE: post-operative AREA TREATED: Right chest wall/IM/SC/axilla CURRENT DOSE: 4400 cGy in 22 fx PLANNED DOSE: 6000 cGy in 30 fx Status: Patient states there is no possibility she is at this time SUBJECTIVE: She has mild tenderness and pruritus. EXAM: KPS: 90 General Appearance: Alert and oriented. No acute distress. Radiation dermatitis: Moderate IMAGING/LAB RESULTS: None Treatment chart checked: Yes Patient treatment site reviewed and verified:Yes Port films reviewed and current:Yes Medications started: None ASSESSMENT/PLAN: Clinically stable. toxicity within expected parameters. Continue radiation treatment as planned. Jeanna Temple MD Allergies As of Date: 09/04/2024 (No Known Allergies) Date Reviewed: 09/04/2024 Reviewed by: Ita Taylor RN - Fully Assessed Reason for Visit: Radiotherapy On-treatment Visit [1722] Primary Visit Diagnosis:Malignant 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, estrogen receptor positive (HCC) [C50.211, Z17.0] Prescriptions as of 09/04/2024 - pantoprazole sodium (PROTONIX ORAL) Take by mouth. stomach upset after Augemntin per ER is improving - amoxicillin/potassium clav (AUGMENTIN ORAL) Take by mouth. - predniSONE (DELTASONE) 20 mg tablet Take 2 tablets by mouth once daily. - amoxicillin-clavulanat e potassium (AUGMENTIN) 875-125 mg per tablet Take 1 tablet by mouth every 12 hours. - valACYclovir (VALTREX) 1 gram tablet TAKE TWO TABLETS BY MOUTH TWICE DAILY for TWO days NEEDED for cold SORE - loratadine (CLARITIN) 10 mg tablet Take 10 mg by mouth once daily. - losartan (COZAAR) 25 mg tablet Take 25 mg by mouth once daily. - albuterol HFA (PROAIR HFA) 90 mcg/actuation inhaler inhale 1 puff by mouth every 4 hours as needed for wheezing/shortnessof breath. as directed - fluticasone (FLONASE) 50 mcg/actuation nasal spray Use 1 [place] in each nostril daily at bedtime. Problem List As Of Date 09/04/2024 Noted Resolved ASCUS favor dysplasia [R87.611] 06/23/2006 05/07/2010 URINARY CALCULUS NOS [N20.9] Moderate dysplasia of cervix [N87.1] 05/14/2010 Personal history of cervical dysplasia [Z87.410]05/07/2010 IUD (intrauterine device) in place [Z97.5] 05/14/2010 07/06/2012 PMS (premenstrual syndrome) [N94.3] 07/06/2012 Personal history of breast cancer [Z85.3] 07/09/2013 Status post right mastectomy [Z90.11] 07/16/2013 ER+ (estrogen receptor positive status) [Z17.0] 07/16 (more content not included)... Normal [facility] CNOVon 08-28-2024 CNOV Office Visit (RADTWS ) CARROLLCARA BEYER ([id number]) 1975 F Date Time Provider Department 08/28/24 10:00 AM JEANNA TEMPLE RADTWS During your visit today, we recorded the following information about you: Temperature Pulse Blood pressure 98 degrees 81/minute 155/88 Jeanna Temple MD 08/28/2024 10:19 AM Signed Radiation Oncology - On Treatment Review (OTR) Note PATIENT NAME: Cara Singh PATIENT DIAGNOSIS: Local only recurrence of right breast cancer s/p local excision on 07/06/24. History of stage I, pT1a pN0 (sn), grade 1 invasive ductal carcinoma of the right breast in 2013 treated with right mastectomy and sentinel node biopsy 06/20/13 and then bilateral breast implants. Also h/o stage I, pT1b pN0, grade 1 invasive lobular carcinoma of the left breast in 2019 treated with left mastectomy and axillary node dissection on 07/19/19. COURSE: post-operative AREA TREATED: Right chest wall/IM/SC/axilla CURRENT DOSE: 3400 cGy in 17 fx PLANNED DOSE: 6000 cGy in 30 fx Status: Patient states there is no possibility she is at this time SUBJECTIVE: She has mild tenderness. EXAM: KPS: 90 General Appearance: Alert and oriented. No acute distress. Radiation dermatitis: Moderate IMAGING/LAB RESULTS: None Treatment chart checked: Yes Patient treatment site reviewed and verified:Yes Port films reviewed and current:Yes Medications started: None ASSESSMENT/PLAN: Clinically stable. toxicity within expected parameters. Continue radiation treatment as planned. MD Brandon Stanley Janice, RN 08/28/2024 10:19 AM Signed Radiation Therapy - Nursing Note (OTV) PATIENT NAME: Cara Singh PATIENT August 28, 2024 [facility] FACILITY/LOCATION: [place] NURSING NOTE TYPE: BREAST Subjective Data some tenderness around scar Additional Data Do you want to see a Spool Tender? No Status: Patient states there is no possibility she is at this time. Stress Scale: On a scale of 0 to 10, what number best describes how much distress you have experienced in the past week?(0 being no distress and 10 being extreme distress) 1 Social work notified: Pt denied need to see social services aide at this time. Nursing Assessment Fatigue: increased fatigue over baseline but not altering normal activities Appetite: good Nutritional Intake: Regular oral intake. Weight Gain/Loss: Not applicable Ambulatory weight history: Last 6 Encounter Wt Readings: Date: Wt: 08/16/2024 65.9 kg (145 lb 4.5 oz) 07/26/2024 66.9 kg (147 lb 7.8 oz) 07/19/2024 66.2 kg (146 lb) 06/25/2024 65.8 kg (145 lb) 06/20/2024 65.8 kg (145 lb) 06/07/2024 66.6 kg (146 lb 13.2 oz) Nausea:None Vomiting: None Bowel Function: normal bowel movements Erythema/Hyperpigmenta tion:moderate Desquamation:none Rash:none Skin Care: Aquaphor Skin Sensation: mild itching and mild burning Focused Assessment BREAST: Lymphedema Assessment: Is the patient noting any swelling? No. SIGNED by: Ita Taylor RN Allergies As of Date: 08/28/2024 (No Known Allergies) Date Reviewed: 08/28/2024 Reviewed by: Ita Taylor RN - Fully Assessed Reason for Visit: Radiotherapy On-treatment Visit [1722] Primary Visit Diagnosis:Malignant 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, estrogen receptor positive (HCC) [C50.211, Z17.0] Prescriptions as of 08/28/2024 - pantoprazole sodium (PROTONIX ORAL) Take by mouth. stomach upset after Augemntin per ER is improving - amoxicillin/potassium clav (AUGMENTIN ORAL) Take by mouth. - predniSONE (DELTASONE) 20 mg tablet Take 2 tablets by mouth once daily. - amoxicillin-clavulanat e potassium (AUGMENTIN) 875-125 mg per tablet Take 1 tablet by mouth every 12 hours. - valACYclovir (VALTREX) 1 gram tablet TAKE TWO TABLETS BY MOUTH TWICE DAILY for TWO days NEEDED for cold SORE - loratadine (CLARITIN) 10 mg tablet Take 10 mg by mouth once daily. - losartan (COZAAR) 25 mg tablet Take 25 mg by mouth once daily. - albuterol HFA (PROAIR HFA) 90 mcg/actuation inhaler inhale 1 puff by mouth every 4 hours as needed for wheezing/shortnessof breath. as directed - fluticasone (FLONASE) 50 mcg/actuation nasal spray Use 1 [place] in each nostril daily at bedtime. Problem List As Of Date 08/28/2024 Noted Resolved ASCUS favor dysplasia [R87.611] 06/23/2006 05/07/2010 URINARY CALCULUS NOS [N20.9] Moderate dysplasia of cervix [N87.1] 05/14/2010 Personal history of cervical dysplasia [Z87.410]05/07/2010 IUD (intrauterine device) in place [Z97.5] 05/14/2010 07/06/2012 PMS (premenstrual syndrome) [N94.3] 07/06/2012 Personal history of breast cancer [Z85.3] 07/09/2013 Status post right mastectomy [Z90.11] 07/16/2013 ER+ (estrogen receptor positive status) [Z17.0] 07/16/2013 Use of tamoxifen (Nolvadex) [Z79.810] 07/16/2013 Sta (more content not included)... Normal [facility] Nasopharyngeal Cultureon NAC No growth in 48 hours. Normal [facility] Comment on above: Performed By: #### M 100.1999, M100.2500 #### [facility] [address] [place], [place], [address] Gram Stainon 08-24-2024 GS Gram Stain No organisms seen Rare White Blood Cells Rare Epithelial cells Normal [facility] Comment on above: Performed By: #### M 100.1999, M100.2500 #### [facility] [address] [place], [place], [address] Gram stainOrdered By: Cheo Ballesteros on 08-23-2024 Microscopic observation Gram stain Nom (Unsp spec) [facility] CNOVon 08-21-2024 CNOV Office Visit (RADTWS ) CARA SINGH ([id number]) 1975 F Date Time Provider Department 08/21/24 10:00 AM JEANNA TEMPLE RADTWS During your visit today, we recorded the following information about you: Temperature Pulse Blood pressure 98.5 degrees 81/minute 153/84 Ita Taylor, RN 08/21/2024 10:24 AM Signed Radiation Therapy - Nursing Note (OTV) PATIENT NAME: Cara Singh PATIENT August 21, 2024 [facility] FACILITY/LOCATION: [place] NURSING NOTE TYPE: BREAST Subjective Data it started itching last night, and some tenderness Additional Data Do you want to see a Spool Tender? No Status: Patient states there is no possibility she is at this time. Stress Scale: On a scale of 0 to 10, what number best describes how much distress you have experienced in the past week?(0 being no distress and 10 being extreme distress) 1 Social work notified: Pt denied need to see social services aide at this time. Nursing Assessment Fatigue: none Appetite: good Nutritional Intake: Regular oral intake. Weight Gain/Loss: Not applicable Ambulatory weight history: Last 6 Encounter Wt Readings: Date: Wt: 08/16/2024 65.9 kg (145 lb 4.5 oz) 07/26/2024 66.9 kg (147 lb 7.8 oz) 07/19/2024 66.2 kg (146 lb) 06/25/2024 65.8 kg (145 lb) 06/20/2024 65.8 kg (145 lb) 06/07/2024 66.6 kg (146 lb 13.2 oz) Nausea:None Vomiting: None Bowel Function: normal bowel movements Erythema/Hyperpigmenta tion:mild pink on chest Desquamation:none Rash:none Skin Care: Aquaphor Skin Sensation: mild itching Focused Assessment BREAST: Lymphedema Assessment: Is the patient noting any swelling? No. SIGNED by: KUSUM Moncada Daesung, MD 08/21/2024 10:24 AM Signed Radiation Oncology - On Treatment Review (OTR) Note PATIENT NAME: Cara Singh PATIENT DIAGNOSIS: Local only recurrence of right breast cancer s/p local excision on 07/06/24. History of stage I, pT1a pN0 (sn), grade 1 invasive ductal carcinoma of the right breast in 2013 treated with right mastectomy and sentinel node biopsy 06/20/13 and then bilateral breast implants. Also h/o stage I, pT1b pN0, grade 1 invasive lobular carcinoma of the left breast in 2019 treated with left mastectomy and axillary node dissection on 07/19/19. COURSE: post-operative AREA TREATED: Right chest wall/IM/SC/axilla CURRENT DOSE: 2400 cGy in 12 fx PLANNED DOSE: 6000 cGy in 30 fx Status: Patient states there is no possibility she is at this time SUBJECTIVE: She has mild pruritus. EXAM: KPS: 90 General Appearance: Alert and oriented. No acute distress. Radiation dermatitis: Slight IMAGING/LAB RESULTS: None Treatment chart checked: Yes Patient treatment site reviewed and verified:Yes Port films reviewed and current:Yes Medications started: None ASSESSMENT/PLAN: Clinically stable. toxicity within expected parameters. Continue radiation treatment as planned. Jeanna Temple MD Allergies As of Date: 08/21/2024 (No Known Allergies) Date Reviewed: 08/21/2024 Reviewed by: Ita Taylor RN - Fully Assessed Reason for Visit: Radiotherapy On-treatment Visit [1722] Primary Visit Diagnosis:Malignant 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, estrogen receptor positive (HCC) [C50.211, Z17.0] Prescriptions as of 08/21/2024 - pantoprazole sodium (PROTONIX ORAL) Take by mouth. stomach upset after Augemntin per ER is improving - amoxicillin/potassium clav (AUGMENTIN ORAL) Take by mouth. - predniSONE (DELTASONE) 20 mg tablet Take 2 tablets by mouth once daily. - amoxicillin-clavulanat e potassium (AUGMENTIN) 875-125 mg per tablet Take 1 tablet by mouth every 12 hours. - valACYclovir (VALTREX) 1 gram tablet TAKE TWO TABLETS BY MOUTH TWICE DAILY for TWO days NEEDED for cold SORE - loratadine (CLARITIN) 10 mg tablet Take 10 mg by mouth once daily. - losartan (COZAAR) 25 mg tablet Take 25 mg by mouth once daily. - albuterol HFA (PROAIR HFA) 90 mcg/actuation inhaler inhale 1 puff by mouth every 4 hours as needed for wheezing/shortnessof breath. as directed - fluticasone (FLONASE) 50 mcg/actuation nasal spray Use 1 [place] in each nostril daily at bedtime. Problem List As Of Date 08/21/2024 Noted Resolved ASCUS favor dysplasia [R87.611] 06/23/2006 05/07/2010 URINARY CALCULUS NOS [N20.9] Moderate dysplasia of cervix [N87.1] 05/14/2010 Personal history of cervical dysplasia [Z87.410]05/07/2010 IUD (intrauterine device) in place [Z97.5] 05/14/2010 07/06/2012 PMS (premenstrual syndrome) [N94.3] 07/06/2012 Personal history of breast cancer [Z85.3] 07/09/2013 Status post right mastectomy [Z90.11] 07/16/2013 ER+ (estrogen receptor positive status) [Z17.0] 07/16/2013 Use of tamoxifen (Nolvadex) [Z79.810] 07/16/2013 Status post bilateral breast implants [Z98.82] 02/28/ (more content not included)... Normal [facility] 12 Lead EKGon 08-16-2024 12 Lead EKG [facility] [address] [place] [address] 12 Lead EKG 08/16/24 1113 MR#: [id number] Acct: [id number] Name: CARA SINGH Rep #: [id number] : 1975 49 From: Troy Nichols MD Attending Dr: Status: DEP ER Ordering Dr: Ana Sargent Date: 08/16/24 Location: ED Sex: F C Admitted: Test Reason : CP Blood Pressure : */* mmHG Vent. Rate : 90 BPM Atrial Rate : 90 BPM P-R Int : 124 ms QRS Dur : 88 ms QT Int : 338 ms P-R-T Axes : 74 72 57 degrees QTcB Int : 413 ms Normal sinus rhythm Possible Left atrial enlargement Minimal voltage criteria for LVH, may be normal variant ( Sokolow-Silveira ) Nonspecific ST and T wave abnormality Abnormal ECG Confirmed by JOVAN CAT, TROY ([id number]), continuity editor PATRICIA PAIGE ([id number]) on 08/17/2024 8:17:01 AM Referred By: Matthew Bolaños Confirmed By: TROY NICHOLS MD 08/17/24 0817 Date Troy Nichols MD CC: Dr. Neena Knox MD; Dr. Matthew Bolaños MD; GAEL Cuellar Signed Normal [facility] Abdomen/Pelvis W IV Cont ONL Yon 08-16-2024 Abdomen/Pelvis W IV Cont ONLY [facility] [address] [place] [address] Abdomen/Pelvis W IV Cont ONLY MR#: [id number] Acct: [id number] Name: CARA SINGH Rep #: [id number] : 1975 F 49 From: Bib White MD PCP: Dr. Neena Knox MD Status: REG ER Study: Abdomen/Pelvis W IV Cont ONLY Date of Exam: Exam# [id number] Ordering Dr: Ana Sargent PROCEDURE: ABDOMEN/PELVIS W IV CONT ONLY (procedure code [id number]), 08/16/2024 REASON FOR EXAM: ABDOMINAL PAIN TECHNIQUE: CT abdomen and pelvis was performed with IV contrast. Multiplanar reformats were generated. CONTRAST: Isovue 370 VOLUME: 75mL RADIATION DOSE SUMMARY: CTDlvol: 12.58+ 7.62+ 12.64 mGy DLP: 889.78 mGycm Note that this represents the total for the CTA chest and CT abdomen and pelvis. One or more dose reduction techniques were used (e.g., Automated exposure control, adjustment of the mA and/or kV according to patient size, use of iterative reconstruction technique). COMPARISON: None FINDINGS: Lung bases: Refer to separately dictated concurrent CTA chest. Liver: Unremarkable. Spleen: Unremarkable. Gallbladder: Unremarkable. Pancreas: Unremarkable. Adrenals: Unremarkable. Kidneys: Tiny hypodensities bilaterally, too small to characterize, likely cysts. Punctate intrarenal calculus on the RIGHT with overlying cortical scarring. No hydronephrosis. Bowel: Mild nonspecific focal stranding along the gastric fundus and medial spleen superiorly, also closely approximating a tiny portion of the inferior surface of the diaphragm. Gastric underdistention limits evaluation of wall thickness. Normal caliber appendix. Lymph nodes: Mildly prominent but subcentimeter mesenteric nodes.. Vasculature: Trace atherosclerosis. Peritoneum: Trace to small volume pelvic free fluid. Bladder: Underdistended and suboptimally evaluated, grossly unremarkable. Reproductive Organs: Tiny hypodensity within the RIGHT uterine fundus, nonspecific. 1.7 cm LEFT ovarian peripherally enhancing likely corpus luteal cyst. Body Wall: Tiny fat containing umbilical hernia. Bones: Transitional lumbosacral anatomy, normal variant. CT/Abdomen/Pelvis W IV Cont ONLY IMPRESSION: 1. Mild nonspecific inflammatory stranding in the LEFT upper quadrant adjacent to the gastric fundus and medial spleen. Stomach itself is not well evaluated due to underdistention. Correlate for possible focal gastritis or perhaps peptic ulcer disease. Omental infarct is an additional consideration although the location would be slightly unusual. 2. 1.7 cm LEFT ovarian likely corpus luteal cyst which may be a self-limited source of abdominopelvic pain. 3. Trace to small volume pelvic free fluid, potentially physiologic in a premenopausal female. 4. Refer to separately dictated concurrent CTA chest for intrathoracic findings. 5. Additional description as above. Reading Location: [id number] CC: Dr. Neena Knox MD; GAEL Cuellar Outpatient Clerk: Signed Normal [facility] Absolute lymphocyte countOrd ered By: Ana Sargent on 08-16-2024 Lymphocytes Auto (Unsp spec) [#/Vol] 1.15 10*3/uL 0.83-4.51 [facility] Absolute neutrophil countOrd ered By: Ana Sargent on 08-16-2024 Neutrophils (Bld) [#/Vol] 4.2 10*3/uL 2.0-7.7 [facility] Anion gap in Serum or Plasma Ordered By: Ana Sargent on 08-16-2024 Anion gap [Moles/Vol] 10 mmol/L 5-15 [facility] Automated lymphocyte count a s percentage of total leukocytesOrdered By: Ana Sargent on 08-16-2024 Lymphocytes/100 WBC Auto (Unsp spec) 18.4 % Low 19-41 [facility] BUN/creatinine ratioOrdered By: Ana Sargent on 08-16-2024 Urea nitrogen/Creatinine [Mass ratio] 20.6 mg/mg High 10-20 [facility] Basophil percentageOrdered B y: Ana Sargent on 08-16-2024 Basophils/100 WBC (Bld) 0.3 % 0-1 [facility] Bilirubin, totalOrdered By: Ana Sargent on 08-16-2024 Bilirubin [Mass/Vol] 0.34 mg/dL 0.00-1.30 [facility] CBC W/Diff, Automatedon 05-0 1-2024 Absolute Lymph 1.15 X10 3/uL Normal 0.83-4.51 [facility] Comment on above: Performed By: #### L 501.4021, L500.4050, L501.2450, L100.0100 ####[facility] [address] [place], [address] Absolute Neut 4.2 X10 3/uL Normal 2.0-7.7 [facility] Comment on above: Performed By: #### L 501.4021, L500.4050, L501.2450, L100.0100 ####[facility] [address] [place], [address] Basophils/100 WBC (Bld) 0.3 % Normal 0-1 [facility] Comment on above: Performed By: #### L 501.4021, L500.4050, L501.2450, L100.0100 ####[facility] [address] [place], [address] Eosinophils/100 WBC (Bld) 2.7 % Normal 0-5 [facility] Comment on above: Performed By: #### L 501.4021, L500.4050, L501.2450, L100.0100 ####[facility] [address] [place], [address] Erythrocyte distribution width (RBC) [Ratio] 13.1 % Normal 11.6-14.6 [facility] Comment on above: Performed By: #### L 501.4021, L500.4050, L501.2450, L100.0100 ####[facility] [address] [place], [address] Hematocrit (Bld) [Volume fraction] 35.4 % Low 37-47 [facility] Comment on above: Performed By: #### L 501.4021, L500.4050, L501.2450, L100.0100 ####[facility] [address] [place], [address] Hemoglobin (Bld) [Mass/Vol] 11.7 g/dL Low 12.0-15.0 [facility] Comment on above: Performed By: #### L 501.4021, L500.4050, L501.2450, L100.0100 ####[facility] [address] [place], [address] IG% 0.500 Normal 0.0-0.9 [facility] Comment on above: Result Comment: IG% - Immature Granulocytes (promyelocytes, myelocytes and metamyelocytes) > 1% indicates that a LEFT SHIFT is Present. Performed By: #### L 501.4021, L500.4050, L501.2450, L100.0100 ####[facility] [address] [place], [address] Lymphocytes/100 WBC (Bld) 18.4 % Low 19-41 [facility] Comment on above: Performed By: #### L 501.4021, L500.4050, L501.2450, L100.0100 ####[facility] [address] [place], [address] MCH (RBC) [Entitic mass] 30.0 pg Normal 27.0-32.0 [facility] Comment on above: Performed By: #### L 501.4021, L500.4050, L501.2450, L100.0100 ####[facility] [address] [place], [address] MCHC (RBC) [Mass/Vol] 33.1 g/dL Normal 32-36 [facility] Comment on above: Performed By: #### L 501.4021, L500.4050, L501.2450, L100.0100 ####[facility] [address] [place], [address] MCV (RBC) [Entitic vol] 90.8 fL Normal 81-99 [facility] Comment on above: Performed By: #### L 501.4021, L500.4050, L501.2450, L100.0100 ####[facility] [address] [place], [address] Monocytes/100 WBC (Bld) 10.2 % High 0-10 [facility] Comment on above: Performed By: #### L 501.4021, L500.4050, L501.2450, L100.0100 ####[facility] [address] [place], [address] Neutrophils/100 WBC (Bld) 67.9 % Normal 47-70 [facility] Comment on above: Performed By: #### L 501.4021, L500.4050, L501.2450, L100.0100 ####[facility] [address] [place], [address] Nucleated RBC (Bld) [#/Vol] 0 10*3/uL Normal 0-5 [facility] Comment on above: Performed By: #### L 501.4021, L500.4050, L501.2450, L100.0100 ####[facility] [address] [place], [address] Platelet mean volume (Bld) [Entitic vol] 9.4 fL Normal 6.2-12.0 [facility] Comment on above: Performed By: #### L 501.4021, L500.4050, L501.2450, L100.0100 ####[facility] [address] [place], [address] Platelets (Bld) [#/Vol] 240 10*3/uL Normal 150-450 [facility] Comment on above: Performed By: #### L 501.4021, L500.4050, L501.2450, L100.0100 ####[facility] [address] [place], [address] RBC (Bld) [#/Vol] 3.90 10*6/uL Low 4.2-5.4 [facility] Comment on above: Performed By: #### L 501.4021, L500.4050, L501.2450, L100.0100 ####[facility] [address] [place], [address] RDW SD 42.9 fl Normal 35.1-43.9 [facility] Comment on above: Performed By: #### L 501.4021, L500.4050, L501.2450, L100.0100 ####[facility] [address] [place], [address] WBC (Bld) [#/Vol] 6.3 10*3/uL Normal 4.4-11.0 [facility] Comment on above: Performed By: #### L 501.4021, L500.4050, L501.2450, L100.0100 ####[facility] [address] [place], [address] CNOVon 08-16-2024 CNOV Office Visit (UCWSTR ) CARA SINGH ([id number]) 1975 F Date Time Provider Department 08/16/24 10:15 AM LALO FLETCHER [facility] During your visit today, we recorded the following information about you: Temperature Pulse Respiration Blood pressure 99 degrees 96/minute 18/minute 172/91 Weight 65.9 kg Lalo Fletcher APRN.BASKET TURNER 08/16/2024 10:58 AM Signed Patient came in with complaints of worsening symptoms. Patient is on Augmentin. Patient had cough congestion sinus. Patient is now having abdominal pain. Patient says its about an 8 out of 10. Upon exam patient was extremely tender in the left upper quadrant right lower quadrant. When palpating the right lower quadrant it went to the umbilical area. At this time patient is being referred to the emergency room for more thorough evaluation due to abdominal pain. Patient was agreeable and will take her now. Allergies As of Date: 08/16/2024 (No Known Allergies) Date Reviewed: 08/16/2024 Reviewed by: Mery Leroy MA - Fully Assessed Reason for Visit: Cough [28] Cmt: Chest congestion and tightness, sinus congestion x2 weeks Primary Visit Diagnosis:Left upper quadrant abdominal pain [R10.12] Prescriptions as of 08/16/2024 - amoxicillin/potassium clav (AUGMENTIN ORAL) Take by mouth. - predniSONE (DELTASONE) 20 mg tablet Take 2 tablets by mouth once daily. - amoxicillin-clavulanat e potassium (AUGMENTIN) 875-125 mg per tablet Take 1 tablet by mouth every 12 hours. - valACYclovir (VALTREX) 1 gram tablet TAKE TWO TABLETS BY MOUTH TWICE DAILY for TWO days NEEDED for cold SORE - loratadine (CLARITIN) 10 mg tablet Take 10 mg by mouth once daily. - losartan (COZAAR) 25 mg tablet Take 25 mg by mouth once daily. - albuterol HFA (PROAIR HFA) 90 mcg/actuation inhaler inhale 1 puff by mouth every 4 hours as needed for wheezing/shortnessof breath. as directed - fluticasone (FLONASE) 50 mcg/actuation nasal spray Use 1 [place] in each nostril daily at bedtime. Problem List As Of Date 08/16/2024 Noted Resolved ASCUS favor dysplasia [R87.611] 06/23/2006 05/07/2010 URINARY CALCULUS NOS [N20.9] Moderate dysplasia of cervix [N87.1] 05/14/2010 Personal history of cervical dysplasia [Z87.410]05/07/2010 IUD (intrauterine device) in place [Z97.5] 05/14/2010 07/06/2012 PMS (premenstrual syndrome) [N94.3] 07/06/2012 Personal history of breast cancer [Z85.3] 07/09/2013 Status post right mastectomy [Z90.11] 07/16/2013 ER+ (estrogen receptor positive status) [Z17.0] 07/16/2013 Use of tamoxifen (Nolvadex) [Z79.810] 07/16/2013 Status post bilateral breast implants [Z98.82] 02/28/2014 Malignant neoplasm of upper-outer quadrant of r*03/22/2015 BRCA negative [Z13.71] 05/29/2013 Carcinoma of left breast in female, estrogen re*06/2019 Carcinoma of upper-outer quadrant of left breas*06/2019 Essential hypertension [I10] 07/09/2019 PONV (postoperative nausea and vomiting) [R11.2*07/19/2019 Malignant neoplasm of upper-inner quadrant of r*06/01/2024 Recurrent breast cancer, right (HCC) [C50.911] 06/07/2024 Encounter Status:Closed by LALO FLETCHER on 08/16/24 [facility] CTA Chest W/WO Contraston CTA Chest W/WO Contrast [facility] Imaging Services [address] [place] [id number] CTA Chest W/WO Contrast MR#: [id number] Acct: [id number] Name: CARA SINGH Rep #: [id number] : 1975 F 49 From: Romero Menendez MD PCP: Dr. Neena Knox MD Status: REG ER Study: CTA Chest W/WO Contrast Date of Exam: 08/16/24 Exam# [id number] Ordering Dr: Ana Sargent PROCEDURE: CTA CHEST W/WO CONTRAST 08/16/2024 REASON FOR EXAM: CHEST PAIN, HX CANCER, SOB TECHNIQUE: CTA axial imaging of the chest with intravenous contrast. Multiplanar and multisequence images were obtained. PATIENT PREPARATION: Per protocol CONTRAST: 100 cc Isovue 370 One or more dose reduction techniques were used (e.g., Automated exposure control, adjustment of the mA and/or kV according to patient size, use of iterative reconstruction technique). RADIATION DOSE SUMMARY: DLP: 889.78 mGycm COMPARISON: None FINDINGS: Hardware: Breast implants are noted. Lymph nodes: There is no pathologic adenopathy by size criteria. Heart: Unremarkable RV/LV Diameter Ratio: 0.8 Thoracic Aorta: Unremarkable Pulmonary Vessels: Pulmonary artery Hounsfield units = 347. there is no visible pulmonary embolus. Lungs and Airways: Clear Pleura: There is no pneumothorax or effusion Upper Abdomen: Reported separately Bones: There is no acute bony abnormality. CT/CTA Chest W/WO Contrast IMPRESSION: There is no visible pulmonary embolus. Reading Location: [facility] CC: Dr. Neena Knox MD; GAEL Cuellar Outpatient Clerk: Signed Normal [facility] Carbon dioxide, total [Moles /volume] in Central venous bloodOrdered By: Ana Sargent on 08-16-2024 CO2 [Moles/Vol] 22.7 mmol/L 21.0-32.0 [facility] Chloride assayOrdered By: Francy Sargent on 08-16-2024 Chloride [Moles/Vol] 104 mmol/L 98-108 [facility] Comprehensive Metabolic Prof ilon 08-16-2024 Albumin [Mass/Vol] 4.1 g/dL Normal 3.5-5.0 [facility] Comment on above: Performed By: #### L 501.4021, L500.4050, L501.2450, L100.0100 ####[facility] [address] [place], [address] Albumin/Globulin [Mass ratio] 1.4 {ratio} Normal 0.9-2.4 [facility] Comment on above: Performed By: #### L 501.4021, L500.4050, L501.2450, L100.0100 ####[facility] [address] [place], [address] ALK PHOS 66 U/L Normal 35-104 [facility] Comment on above: Performed By: #### L 501.4021, L500.4050, L501.2450, L100.0100 ####[facility] [address] [place], [address] ALT [Catalytic activity/Vol] 18 U/L Normal <=34 [facility] Comment on above: Performed By: #### L 501.4021, L500.4050, L501.2450, L100.0100 ####[facility] [address] [place], [address] AST [Catalytic activity/Vol] 17 U/L Normal <=31 [facility] Comment on above: Performed By: #### L 501.4021, L500.4050, L501.2450, L100.0100 ####[facility] [address] [place], [address] Bilirubin [Mass/Vol] 0.34 mg/dL Normal 0.00-1.30 [facility] Comment on above: Performed By: #### L 501.4021, L500.4050, L501.2450, L100.0100 ####[facility] [address] [place], [address] BUN/CRE 20.6 RATIO High 10-20 [facility] Comment on above: Performed By: #### L 501.4021, L500.4050, L501.2450, L100.0100 ####[facility] [address] [place], [address] Calcium [Mass/Vol] 9.1 mg/dL Normal 7.6-11.0 [facility] Comment on above: Performed By: #### L 501.4021, L500.4050, L501.2450, L100.0100 ####[facility] [address] [place], [address] Chloride [Moles/Vol] 104 mmol/L Normal 98-108 [facility] Comment on above: Performed By: #### L 501.4021, L500.4050, L501.2450, L100.0100 ####[facility] [address] [place], [address] CO2 [Moles/Vol] 22.7 mmol/L Normal 21.0-32.0 [facility] Comment on above: Performed By: #### L 501.4021, L500.4050, L501.2450, L100.0100 ####[facility] [address] [place], [address] Creatinine [Mass/Vol] 0.62 mg/dL Low 0.70-1.20 [facility] Comment on above: Performed By: #### L 501.4021, L500.4050, L501.2450, L100.0100 ####[facility] [address] [place], [address] ECRCL 96.60 ml/min Normal 50-250 [facility] Comment on above: Performed By: #### L 501.4021, L500.4050, L501.2450, L100.0100 ####[facility] [address] [place], [address] GAP 10 Normal 5-15 [facility] Comment on above: Performed By: #### L 501.4021, L500.4050, L501.2450, L100.0100 ####[facility] [address] [place], [address] GFR/1.73 sq M.predicted among non-blacks MDRD (S/P/Bld) [Vol rate/Area] 108 mL/min/{1.73_m2} Normal >60 [facility] Comment on above: Result Comment: mL/m in/1.73m2 CKD-EPI Creatinine Equation (2020) Performed By: #### L 501.4021, L500.4050, L501.2450, L100.0100 ####[facility] [address] [place], [address] Globulin (S) [Mass/Vol] 2.8 g/dL Normal 2.2-4.2 [facility] Comment on above: Performed By: #### L 501.4021, L500.4050, L501.2450, L100.0100 ####[facility] [address] [place], [address] Glucose [Mass/Vol] 92 mg/dL Normal 70-99 [facility] Comment on above: Performed By: #### L 501.4021, L500.4050, L501.2450, L100.0100 ####[facility] [address] [place], [address] Potassium [Moles/Vol] 3.9 mmol/L Normal 3.3-5.1 [facility] Comment on above: Performed By: #### L 501.4021, L500.4050, L501.2450, L100.0100 ####[facility] [address] [place], [address] Sodium [Moles/Vol] 137 mmol/L Normal 133-145 [facility] Comment on above: Performed By: #### L 501.4021, L500.4050, L501.2450, L100.0100 ####[facility] [address] [place], [address] T PROT 6.9 g/dL Normal 5.9-8.4 [facility] Comment on above: Performed By: #### L 501.4021, L500.4050, L501.2450, L100.0100 ####[facility] [address] [place], [address] Urea nitrogen [Mass/Vol] 13 mg/dL Normal 4-19 [facility] Comment on above: Performed By: #### L 501.4021, L500.4050, L501.2450, L100.0100 ####[facility] [address] [place], [address] Emergency Department Summary on 08-16-2024 Emergency Department Summary [facility] Medical Records Department [address] [place] [address] Emergency Department Summary 08/16/24 MR#: [id number] Acct: [id number] Name: CARA SINGH Rep #: [id number] : 1975 49 From: Ana MAYO PCP: Dr. Neena Knox MD Status:DEP ER Location: ED HPI History of Present Illness Chief Complaint: Chest Pain Narrative Narrative: Patient presenting today with pain across her upper abdomen that radiates to the left side of her chest and left shoulder she has had over the past 2 days or so. She reports that the pain is worse when she is moving around or coughs. She reports mild dyspnea with exertion. She recently finished a 2-week course of Augmentin for a sinus infection, she reports that she is still experiencing nasal congestion. She has a history of breast cancer s/p bilateral mastectomy that was in remission, however, they recently found a spot on her chest that required surgical removal 4 weeks ago and radiation therapy, she last had radiation today. She follows with Dr. Faust. She denies any history of blood clots. She denies fevers, chills, nausea, vomiting, cardiac history, and stool changes. [facility] Medical History Wears contact lenses Cancer Alcohol use Non-smoker Hypertension Left breast lump ASCUS of cervix with negative high risk HPV Complex cyst of right ovary Kidney stones, calcium oxalate Breast cancer Home Medications ???Medication ???Instructions ???Recorded ???Last Taken ???Type losartan 25 mg tablet 25 mg PO QHS 10/01/21 08/15/24 His tory amoxicillin 875 mg-potassium 1 tab PO BID 08/16/24 08/15/24 His tory clavulanate 125 mg tablet fluticasone propionate 50 2 spray intranasal DAILY PRN 08/16 Unknown History mcg/actuation nasal allergy symptoms spray,suspension (24 Hour Allergy Relief) loratadine 10 mg tablet 10 mg PO QHS 08/16/24 08/16/24 His tory (Allerclear) oxymetazoline 0.05 % nasal spray 2 spray intranasal BID PRN nasal 0 08/16/24 Unknown History (12 Hour Nasal Relief [place]) congestion pantoprazole 40 mg tablet,delayed 40 mg PO DAILY #14 tabs 08/16/24 Unknown Rx release (Protonix) Allergy/AdvReac Type Severity Reaction Status Date / Time No Known Allergies Allergy Verified 08/16/24 11:07 Family History Grandmother Breast cancer Hypertension Father Cancer prostate Surgical History History of mastectomy Hx of right breast biopsy Hx of right mastectomy H/O mastectomy Social History number of children: 2 current occupational status: employed 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 Smoking Status: Former smoker alcohol intake: current alcohol intake frequency: holidays/special occasions only substance use type: does not use caffeine: Yes what type of physical activity do you participate in: none seatbelt use: always do you feel safe at home: Yes 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) ROS ROS ED Constitutional Constitutional ED: Denies chills or fever(s) Cardiovascular Cardiovascular: Reports chest pain; Denies palpitations Respiratory/Chest Respiratory/Chest: Reports cough and dyspnea on exertion Gastrointestinal Gastrointestinal: Reports abdominal pain; Denies constipation, diarrhea, melena, nausea or vomiting Genitourinary Genitourinary ED: Denies dysuria, hematuria or urinary urgency Musculoskeletal Musculoskeletal: Denies arthralgias or myalgias Integumentary Denies rash Neurologic Neurologic: Denies weakness EXAM Physical Exam Const Vital Signs: 08/16/24 11:02 08/16/24 11:06 08/16/24 11:33 Temperature 98.7 F 98.7 F Temperature Source Oral Oral Pulse Rate 94 94 Respiratory Rate 17 17 Respiratory Effort Short of Breath Blood Pressure 157/88 H 157/88 H Blood Pressure Mean 111 111 Pulse Ox 100 100 Oxygen Delivery Method Room Air Room Air 08/16/24 12:10 08/16/24 13:02 08/16/24 13:34 Temperature 98.7 F 97 F L Temperature Source Oral Pulse Rate 89 92 Respiratory Rate 18 16 Respiratory Effort Blood Pressure 165/92 H 163/91 H 143/88 H Blood Pressure Mean 116 115 106 Pulse Ox 97 97 Oxygen Delivery Method Room Air Positive well nourished, well developed and no apparent distress General Appearance ED: well developed HEENT Reports normocephalic and head/scalp atraumatic Mouth ED: Yes moist mucous membranes normal Eyes PERRL and EOMs intact bilaterally Neck full ROM and supple Chest Wall inspection of chest normal and palpation of chest normal Resp normal respirato (more content not included)... Normal [facility] Eosinophil percentageOrdered By: Ana Sargent on 08-16-2024 Eosinophils/100 WBC (Bld) 2.7 % 0-5 [facility] Erythrocyte distribution wid th ratioOrdered By: Ana Sargent on 08-16-2024 Erythrocyte distribution width (RBC) [Ratio] 13.1 % 11.6-14.6 [facility] Erythrocyte distribution wid th standard deviationOrdered By: Ana Sargent on 08-16-2024 Erythrocyte distribution width (RBC) [Ratio] 42.9 fl 35.1-43.9 [facility] Glomerular filtration rate ( GFR) estimation/1.73 sq m using serum, plasma, or whole bOrdered By: Ana Sargent on 08-16-2024 GFR/1.73 sq M.predicted among non-blacks MDRD (S/P/Bld) [Vol rate/Area] 108 mL/min/{1.73_m2} >60 [facility] Comment on above: mL/min/1.73m2 CKD-EP I Creatinine Equation (2020) Hematocrit Auto (Bld) [Volum e fraction]Ordered By: Ana aSrgent on 08-16-2024 Hematocrit (Bld) [Volume fraction] 35.4 % Low 37-47 [facility] Hemoglobin measurementOrdere d By: Ana Sargent on 08-16-2024 Hemoglobin (Bld) [Mass/Vol] 11.7 g/dL Low 12.0-15.0 [facility] Immature granulocytes/100 WB C Auto (Bld)Ordered By: Ana Sargent on 08-16-2024 Immature granulocytes/100 WBC (Bld) 0.500 % 0.0-0.9 [facility] Comment on above: IG% - Immature Granu locytes (promyelocytes, myelocytes and metamyelocytes) > 1% indicates that a LEFT SHIFT is Present. L501.4021on 08-16-2024 Trop T High Sen 6 ng/L Normal <=14 [facility] Comment on above: Performed By: #### L 501.4021, L500.4050, L501.2450, L100.0100 ####[facility] [address] [place], [place], [address] Laboratory - Chemistry and C hemistry - challengeOrdered By: Ana Sargent on 08-16-2024 AST [Catalytic activity/Vol] 17 U/L <32 [facility] Lipaseon 08-16-2024 Lipase [Catalytic activity/Vol] 31 U/L Normal 13-75 [facility] Comment on above: Result Comment: Plea se note: LIPASE revised reference range effective 22. New Lipase methodology. Expected to produce lower values than the previous assay method. NEW Reference Range: 13 - 75 U/L Performed By: #### L 501.4021, L500.4050, L501.2450, L100.0100 ####[facility] [address] [place], [address] Lipase measurementOrdered By : Ana Sargent on 08-16-2024 Lipase [Catalytic activity/Vol] 31 U/L 13-75 [facility] Comment on above: Please note:LIPASE r evised reference range effective 22. New Lipase methodology. Expected to produce lower values than the previous assay method. NEW Reference Range: 13 - 75 U/L MCV (mean corpuscular volume ) determinationOrdered By: Ana Sargent on 08-16-2024 MCV (RBC) [Entitic vol] 90.8 fL 81-99 [facility] Mean corpuscular hemoglobin (MCH) determinationOrdered By: Ana Sargent on 08-16-2024 MCH (RBC) [Entitic mass] 30.0 pg 27.0-32.0 [facility] Mean corpuscular hemoglobin concentration (MCHC) determinationOrdered By: Ana Sargent on 08-16-2024 MCHC (RBC) [Mass/Vol] 33.1 g/dL 32-36 [facility] Mean platelet volume determi nationOrdered By: Ana Sargent on 08-16-2024 Platelet mean volume (Bld) [Entitic vol] 9.4 fL 6.2-12.0 [facility] Monocyte percentageOrdered B y: Ana Sargent on 08-16-2024 Monocytes/100 WBC (Bld) 10.2 % High 0-10 [facility] Neutrophil percentageOrdered By: Ana Sargent on 08-16-2024 Neutrophils/100 WBC (Bld) 67.9 % 47-70 [facility] Nucleated red blood cell per centageOrdered By: Ana Sargent on 08-16-2024 Nucleated RBC/100 WBC (Bld) [Ratio] 0 % 0-5 [facility] Platelet countOrdered By: Francy Sargent on 08-16-2024 Platelets (Bld) [#/Vol] 240 10*3/uL 150-450 [facility] Potassium measurement (mass/ volume)Ordered By: Ana Sargent on 08-16-2024 Potassium (Unsp spec) [Mass/Vol] 3.9 mmol/L 3.3-5.1 [facility] RBC Auto (Bld) [#/Vol]Ordere d By: Ana Sargent on 08-16-2024 RBC (Bld) [#/Vol] 3.90 10*6/uL Low 4.2-5.4 [facility] Serum creatinine measurement (mass/volume)Ordered By: Ana Sargent on 08-16-2024 Creatinine [Mass/Vol] 0.62 mg/dL Low 0.70-1.20 [facility] Serum globulin measurementOr dered By: Ana Sargent on 08-16-2024 Globulin (S) [Mass/Vol] 2.8 g/dL 2.2-4.2 [facility] Serum glucose measurement (m ass/volume)Ordered By: Ana Sargent on 08-16-2024 Glucose [Mass/Vol] 92 mg/dL 70-99 [facility] Serum or plasma alanine jean-baptiste otransferase (ALT) measurementOrdered By: Ana Sargent on 08-16-2024 ALT [Catalytic activity/Vol] 18 U/L <35 [facility] Serum or plasma albumin janna urement (mass/volume)Ordered By: Ana Sargent on 08-16-2024 Albumin [Mass/Vol] 4.1 g/dL 3.5-5.0 [facility] Serum or plasma albumin/glob ulin mass ratioOrdered By: Ana Sargent on 08-16-2024 Albumin/Globulin [Mass ratio] 1.4 {ratio} 0.9-2.4 [facility] Serum or plasma alkaline eliseo sphatase measurementOrdered By: Ana Sargent on 08-16-2024 ALP [Catalytic activity/Vol] 66 U/L 35-104 [facility] Serum or plasma calcium janna urement (mass/volume)Ordered By: Ana Sargent on 08-16-2024 Calcium [Mass/Vol] 9.1 mg/dL 7.6-11.0 [facility] Serum or plasma urea nitroge n measurement (mass/volume)Ordered By: Ana Sargent on 08-16-2024 Urea nitrogen [Mass/Vol] 13 mg/dL 4-19 [facility] Sodium levelOrdered By: Darin Sargent on 08-16-2024 Sodium [Moles/Vol] 137 mmol/L 133-145 [facility] Total proteinOrdered By: Fredy Sargent on 08-16-2024 Protein [Mass/Vol] 6.9 g/dL 5.9-8.4 [facility] Troponin T.cardiac [Mass/vol ume] in Serum or Plasma by High sensitivity methodOrdered By: Aan Sargent on 08-16-2024 Troponin T.cardiac High sensitivity method [Mass/Vol] 6 ng/L <14 [facility] White blood cell (WBC) count Ordered By: Ana Sargent on 08-16-2024 WBC (Bld) [#/Vol] 6.3 10*3/uL 4.4-11.0 [facility] CNOVon 08-14-2024 CNOV Office Visit (RADTWS ) CARA SINGH ([id number]) 1975 F Date Time Provider Department 08/14/24 10:00 AM JEANNA TEMPLE During your visit today, we recorded the following information about you: Temperature Pulse Blood pressure 98.8 degrees 85/minute 153/87 Jeanna Temple MD 08/14/2024 10:09 AM Signed Radiation Oncology - On Treatment Review (OTR) Note PATIENT NAME: Cara Singh PATIENT DIAGNOSIS: Local only recurrence of right breast cancer s/p local excision on 07/06/24. History of stage I, pT1a pN0 (sn), grade 1 invasive ductal carcinoma of the right breast in 2013 treated with right mastectomy and sentinel node biopsy 06/20/13 and then bilateral breast implants. Also h/o stage I, pT1b pN0, grade 1 invasive lobular carcinoma of the left breast in 2019 treated with left mastectomy and axillary node dissection on 07/19/19. COURSE: post-operative AREA TREATED: Right chest wall/IM/SC/axilla CURRENT DOSE: 1400 cGy in 7 fx PLANNED DOSE: 6000 cGy in 30 fx Status: Patient states there is no possibility she is at this time SUBJECTIVE: She is doing well without any specific new complaints. EXAM: KPS: 100 General Appearance: Alert and oriented. No acute distress. Radiation dermatitis: No IMAGING/LAB RESULTS: None Treatment chart checked: Yes Patient treatment site reviewed and verified:Yes Port films reviewed and current:Yes Medications started: None ASSESSMENT/PLAN: Clinically stable. No signs of toxicity. Continue radiation treatment as planned. MD Brandon Stanley Janice, KUSUM 08/14/2024 10:09 AM Signed Radiation Therapy - Nursing Note (OTV) PATIENT NAME: Cara Singh PATIENT August 14, 2024 [facility] FACILITY/LOCATION: [place] NURSING NOTE TYPE: BREAST Subjective Data no complaints Additional Data Do you want to see a Spool Tender? No Status: Patient states there is no possibility she is at this time. Stress Scale: On a scale of 0 to 10, what number best describes how much distress you have experienced in the past week?(0 being no distress and 10 being extreme distress) 1 Social work notified: Pt denied need to see social services aide at this time. Nursing Assessment Fatigue: none Appetite: good Nutritional Intake: Regular oral intake. Weight Gain/Loss: Not applicable Ambulatory weight history: Last 6 Encounter Wt Readings: Date: Wt: 07/26/2024 66.9 kg (147 lb 7.8 oz) 07/19/2024 66.2 kg (146 lb) 06/25/2024 65.8 kg (145 lb) 06/20/2024 65.8 kg (145 lb) 06/07/2024 66.6 kg (146 lb 13.2 oz) 05/31/2024 66.2 kg (146 lb) Nausea:None Vomiting: None Bowel Function: normal bowel movements Erythema/Hyperpigmenta tion:none Desquamation:none Rash:none Skin Care: Aquaphor Skin Sensation: Within Normal Limits Focused Assessment BREAST: Not applicable. SIGNED by: Ita Taylor RN Allergies As of Date: 08/14/2024 (No Known Allergies) Date Reviewed: 08/14/2024 Reviewed by: Ita Taylor RN - Fully Assessed Reason for Visit: Radiotherapy On-treatment Visit [1722] Primary Visit Diagnosis:Malignant 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, estrogen receptor positive (HCC) [C50.211, Z17.0] Prescriptions as of 08/14/2024 - amoxicillin/potassium clav (AUGMENTIN ORAL) Take by mouth. - predniSONE (DELTASONE) 20 mg tablet Take 2 tablets by mouth once daily. - amoxicillin-clavulanat e potassium (AUGMENTIN) 875-125 mg per tablet Take 1 tablet by mouth every 12 hours. - valACYclovir (VALTREX) 1 gram tablet TAKE TWO TABLETS BY MOUTH TWICE DAILY for TWO days NEEDED for cold SORE - loratadine (CLARITIN) 10 mg tablet Take 10 mg by mouth once daily. - losartan (COZAAR) 25 mg tablet Take 25 mg by mouth once daily. - albuterol HFA (PROAIR HFA) 90 mcg/actuation inhaler inhale 1 puff by mouth every 4 hours as needed for wheezing/shortnessof breath. as directed - fluticasone (FLONASE) 50 mcg/actuation nasal spray Use 1 [place] in each nostril daily at bedtime. Meds Comments as of 06/21/2013: a Problem List As Of Date 08/14/2024 Noted Resolved ASCUS favor dysplasia [R87.611] 06/23/2006 05/07/2010 URINARY CALCULUS NOS [N20.9] Moderate dysplasia of cervix [N87.1] 05/14/2010 Personal history of cervical dysplasia [Z87.410]05/07/2010 IUD (intrauterine device) in place [Z97.5] 05/14/2010 07/06/2012 PMS (premenstrual syndrome) [N94.3] 07/06/2012 Personal history of breast cancer [Z85.3] 07/09/2013 Status post right mastectomy [Z90.11] 07/16/2013 ER+ (estrogen receptor positive status) [Z17.0] 07/16/2013 Use of tamoxifen (Nolvadex) [Z79.810] 07/16/2013 Status post bilateral breast implants [Z98.82] 02/28/2014 Malignant neoplasm of upper-outer quadrant of r*03/22/2015 BRCA negative [Z13.71] 05/29/2013 Carcinoma of left breast in female, estrogen re (more content not included)... Normal [facility] CNOVon 08-07-2024 CNOV Office Visit (RADTWS ) CARA SINGH ([id number]) 1975 F Date Time Provider Department 08/07/24 10:00 AM JEANNA TEMPLE RADTWS During your visit today, we recorded the following information about you: Temperature Pulse Blood pressure 98.9 degrees 87/minute 153/90 Ita Taylor, KUSUM 08/07/2024 10:34 AM Signed Radiation Therapy - Nursing Note (OTV) PATIENT NAME: Cara Singh PATIENT August 07, 2024 [facility] FACILITY/LOCATION: [facility] NOTE TYPE: BREAST Subjective Data no complaints Additional Data Do you want to see a Spool Tender? No Status: Patient states there is no possibility she is at this time. Stress Scale: On a scale of 0 to 10, what number best describes how much distress you have experienced in the past week?(0 being no distress and 10 being extreme distress) 5 Social work notified: Pt denied need to see social services aide at this time. Nursing Assessment Fatigue: none Appetite: good Nutritional Intake: Regular oral intake. Weight Gain/Loss: Not applicable Ambulatory weight history: Last 6 Encounter Wt Readings: Date: Wt: 07/26/2024 66.9 kg (147 lb 7.8 oz) 07/19/2024 66.2 kg (146 lb) 06/25/2024 65.8 kg (145 lb) 06/20/2024 65.8 kg (145 lb) 06/07/2024 66.6 kg (146 lb 13.2 oz) 05/31/2024 66.2 kg (146 lb) Nausea:None Vomiting: None Bowel Function: normal bowel movements Erythema/Hyperpigmenta tion:none Desquamation:none Rash:none Skin Care: Aquaphor Skin Sensation: Within Normal Limits Focused Assessment BREAST: Lymphedema Assessment: Is the patient noting any swelling? No. SIGNED by: KUSUM Moncada Daesung, MD 08/07/2024 10:34 AM Signed Radiation Oncology - On Treatment Review (OTR) Note PATIENT NAME: Cara Singh PATIENT DIAGNOSIS: Local only recurrence of right breast cancer s/p local excision on 07/06/24. History of stage I, pT1a pN0 (sn), grade 1 invasive ductal carcinoma of the right breast in 2013 treated with right mastectomy and sentinel node biopsy 06/20/13 and then bilateral breast implants. Also h/o stage I, pT1b pN0, grade 1 invasive lobular carcinoma of the left breast in 2019 treated with left mastectomy and axillary node dissection on 07/19/19. COURSE: post-operative AREA TREATED: Right chest wall/IM/SC/axilla CURRENT DOSE: 400 cGy in 2 fx PLANNED DOSE: 6000 cGy in 30 fx Status: Patient states there is no possibility she is at this time SUBJECTIVE: She is doing well without any specific new complaints. EXAM: KPS: 100 General Appearance: Alert and oriented. No acute distress. Radiation dermatitis: No IMAGING/LAB RESULTS: None Treatment chart checked: Yes Patient treatment site reviewed and verified:Yes Port films reviewed and current:Yes Medications started: None ASSESSMENT/PLAN: Clinically stable. No signs of toxicity. Continue radiation treatment as planned. Jeanna Temple MD Allergies As of Date: 08/07/2024 (No Known Allergies) Date Reviewed: 08/07/2024 Reviewed by: Ita Taylor RN - Fully Assessed Reason for Visit: Radiotherapy On-treatment Visit [1722] Primary Visit Diagnosis:Malignant 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, estrogen receptor positive (HCC) [C50.211, Z17.0] Prescriptions as of 08/07/2024 - amoxicillin/potassium clav (AUGMENTIN ORAL) Take by mouth. - predniSONE (DELTASONE) 20 mg tablet Take 2 tablets by mouth once daily. - amoxicillin-clavulanat e potassium (AUGMENTIN) 875-125 mg per tablet Take 1 tablet by mouth every 12 hours. - valACYclovir (VALTREX) 1 gram tablet TAKE TWO TABLETS BY MOUTH TWICE DAILY for TWO days NEEDED for cold SORE - loratadine (CLARITIN) 10 mg tablet Take 10 mg by mouth once daily. - losartan (COZAAR) 25 mg tablet Take 25 mg by mouth once daily. - albuterol HFA (PROAIR HFA) 90 mcg/actuation inhaler inhale 1 puff by mouth every 4 hours as needed for wheezing/shortnessof breath. as directed - fluticasone (FLONASE) 50 mcg/actuation nasal spray Use 1 [place] in each nostril daily at bedtime. Meds Comments as of 06/21/2013: a Problem List As Of Date 08/07/2024 Noted Resolved ASCUS favor dysplasia [R87.611] 06/23/2006 05/07/2010 URINARY CALCULUS NOS [N20.9] Moderate dysplasia of cervix [N87.1] 05/14/2010 Personal history of cervical dysplasia [Z87.410]05/07/2010 IUD (intrauterine device) in place [Z97.5] 05/14/2010 07/06/2012 PMS (premenstrual syndrome) [N94.3] 07/06/2012 Personal history of breast cancer [Z85.3] 07/09/2013 Status post right mastectomy [Z90.11] 07/16/2013 ER+ (estrogen receptor positive status) [Z17.0] 07/16/2013 Use of tamoxifen (Nolvadex) [Z79.810] 07/16/2013 Status post bilateral breast implants [Z98.82] 02/28/2014 Malignant neoplasm of upper-outer quadrant of r*03/22/2015 BRCA negative [Z13.71] 05/29/2013 C (more content not included)... Normal [facility] Jason 08-02-2024 RASHEEDN Telephone (STACIE) CARA SINGH ([id number]) 1975 F Date Time Provider Department 08/02/24 JAY FAUST During your visit today, we recorded the following information about you: Carol Ann Drake LPN 08/02/2024 4:59 PM Signed PSS- patient will need an OV with Dr. Faust after radiation is completed in August. RAJIV Scott Melissa 08/03/2024 1:25 PM Signed Message left for patient to contact office to confirm or reschedule office visit with Dr. Faust. Will also note in radiation notes for Tuesday. Riya Steen 08/06/2024 9:52 AM Signed Patient was at the desk before radiation and is aware of the below September appointment Riya Nihcole Pss Allergies As of Date: 08/02/2024 (No Known Allergies) Date Reviewed: 07/26/2024 Reviewed by: Selma Isaac MA - Fully Assessed Reason for Visit: Appointment [186] Prescriptions as of 08/06/2024 - valACYclovir (VALTREX) 1 gram tablet TAKE TWO TABLETS BY MOUTH TWICE DAILY for TWO days NEEDED for cold SORE - loratadine (CLARITIN) 10 mg tablet Take 10 mg by mouth once daily. - losartan (COZAAR) 25 mg tablet Take 25 mg by mouth once daily. - albuterol HFA (PROAIR HFA) 90 mcg/actuation inhaler inhale 1 puff by mouth every 4 hours as needed for wheezing/shortnessof breath. as directed - fluticasone (FLONASE) 50 mcg/actuation nasal spray Use 1 [place] in each nostril daily at bedtime. Meds Comments as of 06/21/2013: a Problem List As Of Date 08/02/2024 Noted Resolved ASCUS favor dysplasia [R87.611] 06/23/2006 05/07/2010 URINARY CALCULUS NOS [N20.9] Moderate dysplasia of cervix [N87.1] 05/14/2010 Personal history of cervical dysplasia [Z87.410]05/07/2010 IUD (intrauterine device) in place [Z97.5] 05/14/2010 07/06/2012 PMS (premenstrual syndrome) [N94.3] 07/06/2012 Personal history of breast cancer [Z85.3] 07/09/2013 Status post right mastectomy [Z90.11] 07/16/2013 ER+ (estrogen receptor positive status) [Z17.0] 07/16/2013 Use of tamoxifen (Nolvadex) [Z79.810] 07/16/2013 Status post bilateral breast implants [Z98.82] 02/28/2014 Malignant neoplasm of upper-outer quadrant of r*03/22/2015 BRCA negative [Z13.71] 05/29/2013 Carcinoma of left breast in female, estrogen re*06/2019 Carcinoma of upper-outer quadrant of left breas*06/2019 Essential hypertension [I10] 07/09/2019 PONV (postoperative nausea and vomiting) [R11.2*07/19/2019 Malignant neoplasm of upper-inner quadrant of r*06/01/2024 Recurrent breast cancer, right (HCC) [C50.911] 06/07/2024 Encounter Status:Closed by RIYA STEEN on 08/06/24 Normal [facility] CNNURSEon 04-16-2025 CNNURSE Nurse Visit (RADTWS) CARA SINGH ([id number]) 1975 F Date Time Provider Department 08/01/24 11:00 AM [facility] During your visit today, we recorded the following information about you: Ita Taylor RN 08/01/2024 11:33 AM Signed Radiation Therapy - Patient Education Note PATIENT NAME: Cara Singh PATIENT August 01, 2024 [facility] FACILITY/LOCATION: [place] READINESS TO LEARN Cognitive Ability: Alert and oriented Motivation to learn: Eager Family Support: Unable to assess - Family not present Instruction provide to: Patient Patient learns best by: Individual Instruction Written Instruction - Hand-outs Verbal Instruction Factors effecting learning: None Physical limitations effecting learning: None LEARNING RESPONSE Diagnosis: Pt simulated today for radiation therapy to right breast. Education Topic/Teaching Points: Radiation therapy, Side effects, and OTV: Method of instruction: Teach Back skin care Individual instruction Written instruction/Handouts Verbal instruction Patient /Family response: Patient verbalized understanding of radiation treatments, side effects, OTV, and transportation. Follow-up plan: Complete - No need for follow-up Contact information given. Supplemental material: Informational handouts on Deodorant, Fatigue, and Skin changes. 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 Patient has an Onbody or Implanted device: Yes, person notified was: bilateral implants Signed by: Ita Taylor RN Allergies As of Date: 08/01/2024 (No Known Allergies) Date Reviewed: 07/26/2024 Reviewed by: Selma Isaac MA - Fully Assessed Reason for Visit: Patient Education [91] Primary Visit Diagnosis:Malignant 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, estrogen receptor positive (HCC) [C50.211, Z17.0] Prescriptions as of 08/01/2024 - valACYclovir (VALTREX) 1 gram tablet TAKE TWO TABLETS BY MOUTH TWICE DAILY for TWO days NEEDED for cold SORE - loratadine (CLARITIN) 10 mg tablet Take 10 mg by mouth once daily. - losartan (COZAAR) 25 mg tablet Take 25 mg by mouth once daily. - albuterol HFA (PROAIR HFA) 90 mcg/actuation inhaler inhale 1 puff by mouth every 4 hours as needed for wheezing/shortnessof breath. as directed - fluticasone (FLONASE) 50 mcg/actuation nasal spray Use 1 [place] in each nostril daily at bedtime. Meds Comments as of 06/21/2013: a Problem List As Of Date 08/01/2024 Noted Resolved ASCUS favor dysplasia [R87.611] 06/23/2006 05/07/2010 URINARY CALCULUS NOS [N20.9] Moderate dysplasia of cervix [N87.1] 05/14/2010 Personal history of cervical dysplasia [Z87.410]05/07/2010 IUD (intrauterine device) in place [Z97.5] 05/14/2010 07/06/2012 PMS (premenstrual syndrome) [N94.3] 07/06/2012 Personal history of breast cancer [Z85.3] 07/09/2013 Status post right mastectomy [Z90.11] 07/16/2013 ER+ (estrogen receptor positive status) [Z17.0] 07/16/2013 Use of tamoxifen (Nolvadex) [Z79.810] 07/16/2013 Status post bilateral breast implants [Z98.82] 02/28/2014 Malignant neoplasm of upper-outer quadrant of r*03/22/2015 BRCA negative [Z13.71] 05/29/2013 Carcinoma of left breast in female, estrogen re*06/2019 Carcinoma of upper-outer quadrant of left breas*06/2019 Essential hypertension [I10] 07/09/2019 PONV (postoperative nausea and vomiting) [R11.2*07/19/2019 Malignant neoplasm of upper-inner quadrant of r*06/01/2024 Recurrent breast cancer, right (HCC) [C50.911] 06/07/2024 Encounter Status:Closed by ITA TAYLOR on 08/01/24 Normal [facility] CNOVon 07-26-2024 CNOV Office Visit (GENSF) CARA SINGH ([id number]) 1975 F Date Time Provider Department 07/26/24 2:30 PM ADAM CORONA GENSF During your visit today, we recorded the following information about you: Temperature Weight Last Period 98.6 degrees 66.9 kg 07/22/24 Adam Corona DO 07/26/2024 2:40 PM Signed BREAST SURGICAL ONCOLOGY SUBJECTIVE: REASON FOR TODAY'S VISIT: Patient presents with: Breast Cancer Post Op INTERVAL HISTORY: Cara presents today for scheduled post operative follow up and reports doing well. She has no complaints post operatively aside from expected tightness. 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 She found a lump in the right breast in April of this year. She was sent for breast imaging. Diagnosis was made at [facility] by means of ultrasound-guided core biopsy of Right breast. 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 Cara Singh presents with her Fly for evaluation and treatment recommendations. She did well with biopsy. She denies palpable mass, nipple discharge, or overlying skin changes. She had second look ultrasound today after MRI. She took endocrine therapy for 1-2 years after her right breast cancer in 2013, but not after her left breast cancer in 2019. Per Radha Christianson PA-C note: In 2013, she had Stage l (pT1a N0) right invasive ductal carcinoma. 03/2013 screening mammogram was abnormal for which subsequent right diagnostic imaging revealed a cluster of calcifications in the UOQ near the nipple. 04/2013 right mammotome biopsy revealed Grade 2 IDC, ER+(>95%)/AK+(80%)/HER 2-. 04/2013 breast MRI revealed bilateral enlarged axillary LNs. 06/2013 right nipple-sparing mastectomy/SLNB and TE placement by Drs. Garza/Brodie revealed Grade 2 IDC, 1.1 mm. Margins were negative (closest 9 mm). 0/3 SLN were involved. No LVI. She took tamoxifen for 2 years but stopped in 05/2015 due to significant hot flashes and mood swings. 11/2013 she had a right TE exchange for permanent smooth round silicone retropectoral implant and left breast augmentation with smooth round silicone retropectoral implant, and 06/2014 she had right reconstructed breast revision and an implant exchange bilaterally by Dr. Chirinos. In 2019, she had Stage 1 (pT1b N0 M0) left invasive mammary carcinoma in the upper outer quadrant of breast. At OSH she had an abnormal screening mammogram in 04/2019 for which left US revealed a 9 mm lobulated mass at 2:00, 5 cmfn. 06/2019 left ultrasound guided core biopsy at OSH showed Grade 1 Invasive mammary carcinoma with ductal and lobular features, ER+(90%)/AK+(80%)/HER2 -. 07/2019 left nipple sparing mastectomy/SLNB and TE placement with removal of implant by Drs. Garza/Brodie showed an 8 mm Grade 1 Invasive mammary carcinoma with lobular morphology. 0/3 SLNB were involved. Margins were negative (closest 4 mm). No LVI. 10/2019 she had a TE exchange for a permanent smooth round silicone retropectoral implant by Dr. Chirinos. Oncotype RS was 14 corresponding to a 4% risk of distant recurrence at 10 years; thus chemotherapy was not recommended. She started Tamoxifen in 07/2019 and then stopped it in early 2020 due to side effects again. She is not interested in going back on any type of medication. She has not seen Med/Onc Dr. Faust since 2019. She reports that she was advised there isn't a significant benefit of taking Tamoxifen following mastectomies. 05/2013 Cara Ramirez's clinical Integrated BRACAnalysis was negative for a deleterious mutation. 04/2021 she returned for panel testing at OSH. She shared the results with me which were uploaded into the chart. 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 Smoker: No As part of today's visit, I have reviewed and updated as necessary: Current medication list, Past Medical History, Past Surgical History, Allergies, Family History, Social History, and OBGYN History HISTORY OF BREAST PROCEDURE(S): Breast biopsy: Yes, as above Breast cysts: No Breast surgery: Yes, as above Breast cancer: Yes, as above. OBSTETRIC RELATED HISTORY: Patient did breast feed Age at of First Child: 31 years of age. Age at Onset of Menses: Patient does not remember. Age at Menopause: The patient is not menopausal at this time. P: 2 Patient's last menstrual period was 07/22/2024 (approximate). Exogenous Hormone Use: Tamoxifen x 1-2 years last taken ~[id number] IUD - in the past (more than 20 years ago) FAMILY HISTO (more content not included)... [facility] CNOVon 07-20-2024 CNOV Office Visit (RADTWS ) ENEIDACARA K ([id number]) 1975 F Date Time Provider Department 07/20/24 11:00 AM JEANNA TEMPLE RADTWS During your visit today, we recorded the following information about you: Temperature Pulse Blood pressure 98.4 degrees 90/minute 138/86 Ita Taylor, RN 07/26/2024 11:00 AM Signed Radiation Therapy - Nursing Note (Follow-up) PATIENT NAME: Cara Singh PATIENT July 20, 2024 [facility] FACILITY/LOCATION: [place] Reason for visit: Follow up to discuss treatment options. Subjective Data slight post op tenderness Additional Data Do you want to see a Spool Tender? No Nursing Assessment Fatigue: none Appetite: good Weight Gain/Loss: Not applicable Last 6 Encounter Wt Readings: Date: Wt: 07/19/2024 66.2 kg (146 lb) 06/25/2024 65.8 kg (145 lb) 06/20/2024 65.8 kg (145 lb) 06/07/2024 66.6 kg (146 lb 13.2 oz) 05/31/2024 66.2 kg (146 lb) 05/04/2024 66.7 kg (147 lb 0.8 oz) Bowel Function: normal bowel movements Bone Pain: N?a Focused Assessment GENERAL: No additional assessment areas noted. SIGNED by: KUSUM Moncada Daesung, MD 07/26/2024 11:00 AM Signed Radiation Oncology - Follow Up Note PATIENT NAME: Cara Singh PATIENT DIAGNOSIS: Local only recurrence of right breast cancer s/p local excision on 07/06/24. History of stage I, pT1a pN0 (sn), grade 1 invasive ductal carcinoma of the right breast in 2013 treated with right mastectomy and sentinel node biopsy 06/20/13 and then bilateral breast implants. Also h/o stage I, pT1b pN0, grade 1 invasive lobular carcinoma of the left breast in 2019 treated with left mastectomy and axillary node dissection on 07/19/19. INTERVAL HISTORY: Since I saw her, she underwent local excision of the recurrence tumor on 07/06/24. Pathology showed grade 3 invasive ductal carcinoma measuring 1.3 cm with negative surgical margins. There was no LVI. Surgical margins were negative with the closest margin of 0.5 mm from the posterior margin. ALLERGIES No Known Allergies MEDICATIONS: valACYclovir (VALTREX) 1 gram tablet TAKE TWO TABLETS BY MOUTH TWICE DAILY for TWO days NEEDED for cold SORE iv contrast (will be provided with radiology test) CT ABD/PEL -Inject, intravenously, once for 1 dose.No IV access, insert saline lock prior to the beginning of sedation, infusion, injection of imaging exam. Discontinue saline lock post exam. If Pt. has a central line or IVAD, may access for administration according to line specific nursing protocol. Once exam is complete flush line and de-access according to line specific nursing protocol in the CT contrast administration guidelines link. enteric contrast (will be provided with radiology test) For CT ABD/PEL W IVCON Routine order Administer, As Directed One Time Only, via Oral, Rectal, both Oral and Rectal, Enteric Tube, Stoma or Indwelling Catheter, Enteric Contrast as designated per enteric contrast guidelines iv contrast (will be provided with radiology test) CT Chest W -Inject, intravenously, once for 1 dose.No IV access, insert saline lock prior to the beginning of sedation, infusion, injection of imaging exam. Discontinue saline lock post exam. If Pt. has a central line or IVAD, may access for administration according to line specific nursing protocol. Once exam is complete flush line and de-access according to line specific nursing protocol in the CT contrast administration guidelines link. loratadine (CLARITIN) 10 mg tablet Take 10 mg by mouth once daily. losartan (COZAAR) 25 mg tablet Take 25 mg by mouth once daily. albuterol HFA (PROAIR HFA) 90 mcg/actuation inhaler inhale 1 puff by mouth every 4 hours as needed for wheezing/shortnessof breath. as directed fluticasone (FLONASE) 50 mcg/actuation nasal spray Use 1 [place] in each nostril daily at bedtime. PHYSICAL EXAM: VS: BP 138/86 Pulse 90 Temp 36.9 ?C (98.4 ?F) (Temporal) LMP 06/23/2024 (Approximate) SpO2 100% KPS: 100 General Appearance: Alert and oriented. No acute distress. ASSESSMENT AND PLAN: 49 year old woman with local only recurrence of right breast cancer s/p local excision on 07/06/24. History of stage I, pT1a pN0 (sn), grade 1 invasive ductal carcinoma of the right breast in 2013 treated with right mastectomy and sentinel node biopsy 06/20/13 and then bilateral breast implants. Also h/o stage I, pT1b pN0, grade 1 invasive lobular carcinoma of the left breast in 2019 treated with left mastectomy and axillary node dissection on 07/19/19. As she has recurrence in the upper inner chest wall, I recommend radiation treatment to the right chest wall/internal mammary region and axilla/SC. I explained the rationale, benefits, alternative management options and potential complications of radiation treatment to the patient and she understands and agrees t (more content not included)... Normal [facility] CNOVSPon 07-19-2024 CNOVSP Visit (SP) Office (STACIE) CARA SINGH ([id number]) 1975 F Date Time Provider Department 07/19/24 11:10 AM JAY FAUST During your visit today, we recorded the following information about you: Temperature Pulse Respiration Blood pressure 98.9 degrees 83/minute 12/minute 161/83 Weight 66.2 kg Jay Faust DO 07/22/2024 1:20 PM Signed Oncologic problem(s): 1) Recurrent breast cancer. HPI: The patient is a 49 yo female who was diagnosed with a stage I (pT1a, N0) right breast cancer in 2013 following an abnormality found on her initial screening mammogram. Underwent a right-sided mastectomy along with sentinel lymph node biopsy on 06/20/2013. Pathology: A) SENTINEL LYMPH NODE #1, EXCISION: - One lymph node, negative for carcinoma (0/1). B) SENTINEL LYMPH NODE #2, EXCISION: - One lymph node, negative for carcinoma (0/1). C) SENTINEL LYMPH NODE #3, EXCISION: - One lymph node, negative for carcinoma (0/1). D) DISTAL TISSUE UNDER NIPPLE, RIGHT BREAST, EXCISION: - Negative for carcinoma. E) RIGHT BREAST, NIPPLE SPARING MASTECTOMY: - Invasive ductal carcinoma. - Ductal carcinoma in situ, nuclear grade 2, solid and cribriform types. - Changes consistent with prior biopsy site. - Surgical margins of resection are negative for carcinoma or carcinoma in situ. - See comment. COMMENT An immunohistochemical stain for p63 is negative in the focus of invasive carcinoma supporting the above diagnosis. BREAST (INVASIVE CARCINOMA) SYNOPTIC REPORT PROCEDURE: Total mastectomy (nipple sparing) LYMPH NODE SAMPLING: Gilson lymph nodes SPECIMEN LATERALITY: Right HISTOLOGIC TYPE OF INVASIVE CARCINOMA: Invasive ductal carcinoma TUMOR SIZE (GREATEST DIMENSION OF LARGEST FOCUS OF INVASION GREATER THAN 1 MM): 1.1 mm LIBERTY HISTOLOGIC GRADE: Grade 1 - GLANDULAR/TUBULAR DIFFERENTIATION: Score 1 - NUCLEAR PLEOMORPHISM: Score 2 - MITOTIC RATE: Score 2 TUMOR FOCALITY: Single focus of invasive carcinoma DUCTAL CARCINOMA IN SITU (DCIS): Present MACROSCOPIC/MICROSCOPI C EXTENT OF TUMOR: - Skin: Uninvolved by invasive carcinoma or carcinoma in situ MARGINS: Margins uninvolved by invasive carcinoma - - Distance of invasive carcinoma from closest margin: 9 mm from the anterior radial margin MARGINS: Margins uninvolved by DCIS - - Distance of DCIS from closest margin: 6 mm from the anterior radial margin LYMPH NODES: - Number of sentinel lymph nodes examined: 3 - Total number of lymph nodes examined (sentinel and non-sentinel): 3 - - Number of lymph nodes with macrometastasis: 0 - - Number of lymph nodes with micrometastasis: 0 - - Number of lymph nodes with isolated tumor cells: 0 LYMPH VASCULAR INVASION: Not identified PATHOLOGIC STAGING: pT1a pN0 (sn) pM - Not applicable ANCILLARY STUDIES: Previously performed, please see separate report [id number] for additional details. - Estrogen Receptors: Positive, greater than 95%; stain intensity is strong - Progesterone Receptors: Positive, 80%; stain intensity is moderate - HER2 (FISH): Not amplified She has bilateral implants. Her left implant was placed in November 2013 for symmetry and augmentation. She began tamoxifen on July 23, 2013. Stopped 05/2015 due to significant hot flashes and mood swings. OB found lump in left breast. Mammogram and US ?suggested cyst. Was referred to Dr. Garza US left breast : No prior exams were available for comparison. Ultrasound of the left breast 2 o'clock, and axilla regions was performed. Grady scale images of the real-time examination were reviewed. There is 0.9 cm x 0.6 cm x 0.9 cm lobulated mass with an indistinct margin in the left breast at 2 o'clock middle depth 5 cm from the nipple. This lobulated mass is hypoechoic. This correlates as palpated. IMPRESSION: SUSPICIOUS FINDING - BIOPSY SHOULD BE CONSIDERED The 0.9 cm x 0.6 cm x 0.9 cm lobulated mass in the left breast has a differential diagnosis of a solid mass or fat necrosis and is suspicious of malignancy. An ultrasound guided biopsy is recommended. Pathology: CORE BIOPSY OF LEFT BREAST (2 O'CLOCK, 5 CM FROM NIPPLE) - INVASIVE WELL DIFFERENTIATED MAMMARY CARCINOMA. COMMENT: The tumor has the architectural features of a lobular carcinoma with absence of tubule formation (tubule score =3) and a single file pattern of infiltration. There is grade 1 nuclear atypia and mitoses are not identified (mitotic score = 1) for a total Liberty score of 5 corresponding to a grade 1 tumor. No in situ component is identified. No vascular invasion is found to be present. Despite having the typical histologic features of invasive lobular carcinoma, an E-cadherin immunostain reveals the tumor cells to be strongly positive. This suggests that the tumor may have mixed ductal and lobular features. A cytokeratin immunostain was (more content not included)... Normal [facility] Telephone (GENSF) CARA SINGH ([id number]) 1975 F Date Time Provider Department 07/09/24 JILLIAN CAMARA During your visit today, we recorded the following information about you: Jillian Camara RN 07/09/2024 9:51 AM Signed BREAST HEALTH NURSE POST-OP PHONE CONTACT: Cara Singh was contacted via telephone as follow-up from recent breast surgery. TOPICS ADDRESSED: PAIN ASSESSMENT: Yes LOCATION: surgical site, also bra and velcro causing discomfort. Discussed that she can wear her own soft, supportive bra now PAIN SCALE: 1 on a scale of 0-10 at rest, 6/10 with movement PAIN CHARACTER: soreness AGGRAVATING FACTORS: movement and surgical bra MEDICATIONS: Tylenol prn. Discussed alternating with Ibuprofen prn also. Marybeth stated understanding. EMOTIONAL ASSESSMENT: appropriate. ADJUSTMENT TO DIAGNOSIS AND TREATMENT: reflecting understanding. DRAIN CARE: Not applicable. Pt. does not have a drain in place. INCISION SITE: showered and surgical site WNL. NUTRITION: food intake: adequate. fluid intake: adequate. LYMPHEDEMA EDUCATION: not applicable. ACTIVITY AND EXERCISE: Understands there are no ROM limitations. Teach Back method of education performed. The patient verbalized understanding. FOLLOW UP: Reviewed post-op appts scheduled Allergies As of Date: 07/09/2024 (No Known Allergies) Date Reviewed: 07/06/2024 Reviewed by: Aga Nicholas RN - Fully Assessed Reason for Visit: Post Op Call [[id number]] Prescriptions as of 07/09/2024 - valACYclovir (VALTREX) 1 gram tablet TAKE TWO TABLETS BY MOUTH TWICE DAILY for TWO days NEEDED for cold SORE - iv contrast (will be provided with radiology test) CT ABD/PEL -Inject, intravenously, once for 1 dose.No IV access, insert saline lock prior to the beginning of sedation, infusion, injection of imaging exam. Discontinue saline lock post exam. If Pt. has a central line or IVAD, may access for administration according to line specific nursing protocol. Once exam is complete flush line and de-access according to line specific nursing protocol in the CT contrast administration guidelines link. - enteric contrast (will be provided with radiology test) For CT ABD/PEL W IVCON Routine order Administer, As Directed One Time Only, via Oral, Rectal, both Oral and Rectal, Enteric Tube, Stoma or Indwelling Catheter, Enteric Contrast as designated per enteric contrast guidelines - iv contrast (will be provided with radiology test) CT Chest W -Inject, intravenously, once for 1 dose.No IV access, insert saline lock prior to the beginning of sedation, infusion, injection of imaging exam. Discontinue saline lock post exam. If Pt. has a central line or IVAD, may access for administration according to line specific nursing protocol. Once exam is complete flush line and de-access according to line specific nursing protocol in the CT contrast administration guidelines link. - loratadine (CLARITIN) 10 mg tablet Take 10 mg by mouth once daily. - losartan (COZAAR) 25 mg tablet Take 25 mg by mouth once daily. - albuterol HFA (PROAIR HFA) 90 mcg/actuation inhaler inhale 1 puff by mouth every 4 hours as needed for wheezing/shortnessof breath. as directed - fluticasone (FLONASE) 50 mcg/actuation nasal spray Use 1 [place] in each nostril daily at bedtime. Meds Comments as of 06/21/2013: a Problem List As Of Date 07/09/2024 Noted Resolved ASCUS favor dysplasia [R87.611] 06/23/2006 05/07/2010 URINARY CALCULUS NOS [N20.9] Moderate dysplasia of cervix [N87.1] 05/14/2010 Personal history of cervical dysplasia [Z87.410]05/07/2010 IUD (intrauterine device) in place [Z97.5] 05/14/2010 07/06/2012 PMS (premenstrual syndrome) [N94.3] 07/06/2012 Personal history of breast cancer [Z85.3] 07/09/2013 Status post right mastectomy [Z90.11] 07/16/2013 ER+ (estrogen receptor positive status) [Z17.0] 07/16/2013 Use of tamoxifen (Nolvadex) [Z79.810] 07/16/2013 Status post bilateral breast implants [Z98.82] 02/28/2014 Malignant neoplasm of upper-outer quadrant of r*03/22/2015 BRCA negative [Z13.71] 05/29/2013 Carcinoma of left breast in female, estrogen re*06/2019 Carcinoma of upper-outer quadrant of left breas*06/2019 Essential hypertension [I10] 07/09/2019 PONV (postoperative nausea and vomiting) [R11.2*07/19/2019 Malignant neoplasm of upper-inner quadrant of r*06/01/2024 Recurrent breast cancer, right (HCC) [C50.911] 06/07/2024 Encounter Status:Closed by JILLIAN CAMARA on 07/09/24 [facility] ANES POSTPROC EVALon 025 ANES POSTPROC EVAL HNO ID: [id number] Author: HERBERTH NARVAEZ MD Service: Anesthesiology Author Type: Anesthesiologist Type: Anesthesia Postprocedure Evaluation Filed: 07/06/2024 17:31 Note Text: POST ANESTHESIA EVALUATION NOTE : 1975 Procedure Summary Date: 07/06/24 Room / Location: AV OR04 / AV OR Anesthesia Start: 918 Anesthesia Stop: 1015 Procedures: LUMPECTOMY BREAST (Right: Breast) RADIOLOGICAL EXAMINATION SURGICAL SPECIMEN (Right: Breast) NBA INTRAOPERATIVE ULTRASOUND GUIDANCE (Right: Breast) Diagnosis: Recurrent breast cancer, right (HCC) (Recurrent breast cancer, right (HCC) [C50.911]) Surgeons: Adam Corona DO Responsible Provider: Herberth Narvaez MD Anesthesia Type: general ASA Status: 2 Anesthesia Type: general Airway Type: LMA Last Vitals Vitals Value Taken Time BP 133/85 07/06/24 1120 Temp 36.1 ?C (97 ?F) 07/06/24 1019 HR SpO2 74 07/06/24 1130 Resp 16 07/06/24 1045 SpO2 97 % 07/06/24 1130 Vitals shown include unfiled device data. Post Anesthesia Patient Status Patient Evaluation: PACU. PACU/ICU Patient Condition: stable. Anticipated Disposition: phase 2 then home. Neurological Status: aware and responsive. Pulmonary Status: breathing comfortably on room air Airway Control: returned to baseline unsupported. Cardiovascular Status: stable. Pain Management: clinically adequate Postoperative Hydration: acceptable. Intraoperative Events: no significant anesthesia events Post Operative Nausea/Vomiting Status: no significant post operative nausea or vomiting Recommendation: continue current plan of care. Anesthesia Observations No Documentation SIGNATURE: Herberth Narvaez MD PATIENT NAME: Cara Singh DATE: July 06, 2024 TIME: 5:31 PM CSN: [id number] [facility] ANES PRE-OPon 07-06-2024 ANES PRE-OP HNO ID: [id number] Author: CHAYA MOLINA MD Service: Anesthesiology Author Type: Physician Type: Anesthesia Preprocedure Evaluation Filed: 07/06/2024 09:12 Note Text: ANESTHESIOLOGY DAY OF SURGERY NOTE : 1975 Procedure Information Date/Time: 07/06/24 0845 Procedures: LUMPECTOMY BREAST (Right: Breast) RADIOLOGICAL EXAMINATION SURGICAL SPECIMEN (Right: Breast) Location: OR04 / OR Surgeons: Adam Corona DO Estimated body mass index is 24.13 kg/m? as calculated from the following: Height as of 06/25/24: 165.1 cm (5' 5). Weight as of this encounter: 65.8 kg (145 lb). Most recent hematocrit and potassium results: Hematocrit 40.1 07/09/2019 Potassium 4.2 07/09/2019 Relevant Problems ANESTHESIA (+) PONV (postoperative nausea and vomiting) CARDIO (+) Essential hypertension NEURO-PSYCH (+) Personal history of breast cancer (+) Personal history of cervical dysplasia I - PHYSICAL EVALUATION AIRWAY Patient intubated: No. Tracheostomy tube not present Mallampati: III. TM distance: >3 FB. Neck ROM: full ROM without neurological symptoms. Mouth opening: adequate. Short neck: no. Thick neck: no DENTAL Dental findings: teeth intact. Additional exam findings: yes. CARDIOVASCULAR Rhythm: regular Rate: normal PULMONARY Breath sounds clear to auscultation. II - ANESTHESIA PLAN ASA Score: 2 Anesthetic Plan: general Airway type: LMA The patient is not a current smoker. NPO Status: adequate Beta Ayana Monitoring Plan Monitoring plan: standard ASA. Post Procedure Analgesic Plan Postoperative analgesic plan: multimodal analgesia. Informed Consent Anesthetic risks, benefits, alternatives, personnel and consent discussed: yes. Patient / Responsible Constitution Party agrees to proceed: yes Patient / Surrogate agrees to blood products: Yes DNR status not reviewed with patient and/or family prior to surgery. Significant changes in the patient condition since the History and Physical, not otherwise documented in primary service progress note: no. Potential Anesthesia issues that may suggest increased risk of complications or contraindication to planned procedure: none. Vitals Value Taken Time BP 179/99 07/06/24 0800 Pulse 93 07/06/24 0800 Resp 18 07/06/24 0800 Temp 36.8 ?C (98.2 ?F) 07/06/24 0800 SpO2 100 % 07/06/24 0800 Facility-Administered Medications as of 07/06/2024 Medication Dose Route Frequency [COMPLETED] acetaminophen 1,000 mg tab(s) (TYLENOL) 1,000 mg ORAL ONCE lidocaine (PF) 10 mg/mL (1 %) 1-2 mg injection (XYLOCAINE) 0.1-0.2 mL INTRADERMAL PRN lactated ringers iv infusion 5-30 mL/hr INTRAVENOUS CONTINUOUS NaCl 0.9% iv flush bag 20 mL INTRAVENOUS PRN ceFAZolin iv piggyback 2 g in D5W (iso-osmotic) 100 mL (ANCEF) 2 g INTRAVENOUS Pre-Op Once Outpatient Medications as of 07/06/2024 Medication Sig losartan (COZAAR) 25 mg tablet Take 25 mg by mouth once daily. valACYclovir (VALTREX) 1 gram tablet TAKE TWO TABLETS BY MOUTH TWICE DAILY for TWO days NEEDED for cold SORE iv contrast (will be provided with radiology test) CT ABD/PEL -Inject, intravenously, once for 1 dose.No IV access, insert saline lock prior to the beginning of sedation, infusion, injection of imaging exam. Discontinue saline lock post exam. If Pt. has a central line or IVAD, may access for administration according to line specific nursing protocol. Once exam is complete flush line and de-access according to line specific nursing protocol in the CT contrast administration guidelines link. enteric contrast (will be provided with radiology test) For CT ABD/PEL W IVCON Routine order Administer, As Directed One Time Only, via Oral, Rectal, both Oral and Rectal, Enteric Tube, Stoma or Indwelling Catheter, Enteric Contrast as designated per enteric contrast guidelines iv contrast (will be provided with radiology test) CT Chest W -Inject, intravenously, once for 1 dose.No IV access, insert saline lock prior to the beginning of sedation, infusion, injection of imaging exam. Discontinue saline lock post exam. If Pt. has a central line or IVAD, may access for administration according to line specific nursing protocol. Once exam is complete flush line and de-access according to line specific nursing protocol in the CT contrast administration guidelines link. loratadine (CLARITIN) 10 mg tablet Take 10 mg by mouth once daily. albuterol HFA (PROAIR HFA) 90 mcg/actuation inhaler inhale 1 puff by mouth every 4 hours as needed for wheezing/shortnessof breath. as directed fluticasone (FLONASE) 50 mcg/actuation nasal spray Use 1 [place] in each nostril daily at bedtime. I have interviewed and examined the patient. I have reviewed the medical record and/or the pre-anesthesia evaluation, pertinent labs, and test results. This contains updated information obtained within 48 hours of Surgery/Procedure. SIGNATURE: Chaya Molina MD PATIENT NAME: Cara Myers (more content not included)... Normal [facility] [employer] HEALTH ONCOTYPE DXon 07-06-2024 [facility] ONCOTYPE DX RESULT Normal [facility] Comment on above: Order Comment: Speci men Type: TISSUE SPECIMEN Ordering Facility: [facility] Address: [facility] [place] [address] Result Comment: View results in Scanned Documents link when available. Performed By: #### G [facility] #### [employer] CLIA [id number] [address] [place] [address] HISTORY PHYSICALon HISTORY PHYSICAL HNO ID: [id number] Author: SELMA VIRGEN DO Service: General Surgery Author Type: Fellow Type: H&P Filed: 07/06/2024 08:46 Note Text: UPDATED HISTORY AND PHYSICAL EXAMINATION SERVICE DATE: 07/06/2024 SERVICE TIME: 8:46 AM Participation of a fellow, resident, medical student, or advanced practice provider student in performing the sensitive examination was discussed with the patient or authorized personnel representative. The patient or authorized personnel representative has agreed to proceed with the sensitive examination. PHYSICAL EXAM MUST BE COMPLETED ON ADMISSION The History and Physical (completed in the past 30 days) has been reviewed and the patient has been examined. The contents accurately reflect the patient's condition with the following additions or revisions since the HANDP was completed. Examination indicates no changes. This HANDP can be found in the Electronic Medical Record dated 06/25/24. General: Awake, alert Pulmonary: Nonlabored respirations, no audible wheezing Cardiac: 2+ radial pulses SIGNATURE: Selma Virgen DO PATIENT NAME: Cara Singh DATE: July 06, 2024 TIME: 8:46 AM [facility] OPERATIVE NOon 07-06-2024 OPERATIVE NO HNO ID: [id number] Author: ADAM CORONA DO Service: General Surgery Author Type: Physician Type: Operative Report Filed: 07/06/2024 10:10 Note Text: OPERATIVE/PROCEDURE REPORT LOG ID: [id number] SURGERY/PROCEDURE DATE: 07/06/2024 INCISION/PROCEDURE START TIME: 9:36 AM INCISION CLOSE/PROCEDURE END TIME: 10:09 AM SURGEON(S)/PROCEDURALI ST(S) AND COOKIE MIXER HELPER(S): Surgeons and Role: * Adam Corona DO - Primary * Selma Virgen DO - Fellow Nurse Practitioner: 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 APRN.CNP SURGERY/PROCEDURE(S): right breast lumpectomy - 19141 Intraoperative ultrasound for identification of breast mass - 60370 Intraoperative specimen radiograph - [id number] ANESTHESIA: General SURGERY/PROCEDURE DETAILS: Specimen radiograph confirmed ALIDA clip in right breast mass Intra-op US confirmed lesion right breast 2ocl 8cm FN extreme UIQ PRE-OP/PRE-PROCEDURE DIAGNOSIS: Right breast cancer, recurrent Cancer Staging (Hyperlink to Activity) Recurrent breast cancer, right (HCC) Staging form: Breast, AJCC 8th Edition - Clinical stage from 05/23/2024: Stage IA (rcT1c, cN0, cM0, G2, ER+, AK+, HER2-) - Unsigned Stage prefix: Recurrence Histologic grading system: 3 grade system POST-OP/POST-PROCEDURE DIAGNOSIS: Same as Preop This procedure was not performed to treat breast cancer through sentinel node biopsy This procedure was not performed to treat breast cancer through axillary lymph node dissection ESTIMATED BLOOD LOSS: 5 mls SPECIMENS: Right breast lumpectomy (short superior, long lateral, skin anterior, deep is pectoralis fascia) Superior, inferior, medial, lateral margins - final margins inked IMPLANTABLE DEVICES: NONE DRAINS: None COMPLICATIONS: None CLOSURE TECHNIQUE: Primary PARTICIPATION IN SURGERY/PROCEDURE: Fellow closed, under direct supervision and the remainder of the procedure was performed by the primary surgeon/proceduralist with assistance. HISTORY/INDICATIONS Cara Singh has been diagnosed with recurrent right breast cancer. She has previously undergone mastectomy with implant based reconstruction. Recommend wide local excision, axillary surgery not recommended after discussion at tumor board. Expectations of surgery and recovery, risks, indications and benefits reviewed, including but not limited to that of anesthesia, infection, bleeding, post-operative hematoma and seroma formation and indications for re-operation to control for complications or to address surgical margins. All questions answered. After discussion of the options, she wished to proceed with the surgical plan. DESCRIPTION OF PROCEDURE: Pre-operative images were reviewed for surgical planning. Time out was performed. Correct patient, procedure and site confirmed. General anesthesia was induced, SCDs applied and Alex hugger placed. The right breast and axillary region were prepped and draped in the usual fashion. Local anesthetic (0.5% marcaine/1%lidocaine) was infiltrated into the surgical sites of dissection. Intraoperative ultrasound was utilized to localize the breast lesion at 2 ocl 8cm FN. Hard copies stored in patients chart. A curvilinear incision was made atop the mass to include skin as anterior margin and skin flaps developed until the area of concern was encountered. A generous portion of tissue surrounding the mass was excised. The tissue in this area was fibrofatty tissue. Deep margin was resected to exposed pectoralis muscle. Specimen radiograph confirmed the presence of the biopsy clip and mass with adequate radiographic margins. Additional superior, lateral, medial, inferior margins were then resected. Surgical clips were placed in the lumpectomy cavity for future reference. The lumpectomy cavity was inspected and hemostasis assured. No other gross abnormalities of the cavity were noted. The incision was closed with absorbable sutures and skin glue applied. Dressing and surgical bra was placed. Specimen was oriented and inked according to institutional protocol. There was no violation or exposure of implant or capsule. Patient tolerated the procedure well. Sponge and needle counts were reported to be correct. Please note I was present and performed the case with the help of my investigative assistant. There was no qualified resident to help with the procedure. My investigative assistant assisted with traction and exposure, as well as assisted with closure under my supervision. Adam Corona, DO Breast Surgery [facility] Pathology biopsy report Jairo (Tiss)on 07-06-2024 AP DISCLAIMER [facility] Comment on above: Order Comment: Speci men Type: TISSUE SPECIMEN Ordering Facility: [facility] Address: [address] [place] [address] Result Comment: Tere winter Developed Test (LDT) Disclaimer: Performance characteristics of immunohistochemical, immunofluorescent, and chromogenic in-situ hybridization tests have been determined by the performing laboratory within [facility] Pathology and Laboratory Medicine Department ([facility], [facility], [facility], [facility], [facility], [facility], or [facility]) in a manner consistent with CLIA requirements. One or more of these tests may not have been cleared or approved by the FDA. [facility] is regulated under CLIA as qualified to perform high-complexity testing. These tests are used for clinical purposes. These should not be regarded as investigational or for research. Positive and negative controls stain appropriately. Performed By: #### 6 [id number] #### [facility] CLIA [id number] [address] [place] [address] [place] ADDITIONAL BIOMARKERS/MOLECULAR STUDIES A4 [facility] Comment on above: Order Comment: Speci men Type: TISSUE SPECIMEN Ordering Facility: [facility] Address: [address] [place] [address] Performed By: #### 6 6121-5 #### [facility] CLIA [id number] [address] [place] [address] OF [place] CASE REPORT [facility] Comment on above: Order Comment: Speci men Type: TISSUE SPECIMEN Ordering Facility: [facility] Address: [address] [place] [address] Result Comment: Surg [facility] Pathology Report Case: [id number] Authorizing Provider: Adam Corona DO Collected: 07/06/2024 09:45 AM Ordering Location: [facility] Surgery Received: 07/06/2024 10:31 AM Pathologist: Madeline Aldana MD Specimens: A) - Breast, Right, Lumpectomy, Short Superior, Long Lateral, Skin Anterior, Deep Petoralis Fascia B) - Breast, Margin, Right, Excision, Superior C) - Breast, Margin, Right, Excision, Inferior D) - Breast, Margin, Right, Excision, Medial E) - Breast, Margin, Right, Excision, Lateral Performed By: #### 6 6121-5 #### [facility] CLIA [id number] [address] [place] [address] [place] CLINICAL HISTORY Normal [facility] pital Comment on above: Order Comment: Speci men Type: TISSUE SPECIMEN Ordering Facility: [facility] Address: [address] [place] [address] Result Comment: Pre- op diagnosis: Recurrent breast cancer, right (HCC) [C50.911] Performed By: #### 6 6121-5 #### [facility] CLIA [id number] [address] [place] [address] [place] DIAGNOSIS COMMENT Part 1 - Please see separately submitted margins for additional information regarding the final margin status. [facility] Comment on above: Order Comment: Speci men Type: TISSUE SPECIMEN Ordering Facility: [facility] Address: [address] [place] [address] Performed By: #### 6 6121-5 #### [facility] CLIA [id number] [address] [place] [address] [place] FINAL DIAGNOSIS Normal [facility] ital Comment on above: Order Comment: Speci men Type: TISSUE SPECIMEN Ordering Facility: [facility] Address: [address] [place] [address] Result Comment: 1. R ight breast, lumpectomy (A) - Invasive ductal carcinoma, Carpenter grade 3, spanning 1.3 cm, (gross size) (see comment). -Biopsy site changes are identified. -The surrounding breast tissue shows fibrocystic changes. 2. Right breast, superior margin, excision (B) - Benign fibroadipose tissue. -The final, inked margin is negative for carcinoma. 3. Right breast, inferior margin, excision (C) - Benign breast tissue. -The final, inked margin is negative for carcinoma. 4. Right breast, medial margin, excision (D) - Benign breast tissue. -The final, inked margin is negative for carcinoma. 5. Right breast, lateral margin, excision (E) - Benign fibroadipose tissue. -The final, inked margin is negative for carcinoma. PJM/yesenia/07/10/24 at 1003 EDT Performed By: #### 6 6121-5 #### [facility] CLIA [id number] [address] [place] [address] [place] FINAL PERFORMING LAB Normal [facility] Comment on above: Order Comment: Speci men Type: TISSUE SPECIMEN Ordering Facility: [facility] Address: [address] [place] [address] Result Comment: Diag nostic interpretation performed at: [facility], [address] [place] [address] CLIA# [id number] Public Policy Associate: Charles Maya MD Performed By: #### 6 6121-5 #### [facility] CLIA [id number] [address] [place] [address] [place] DESCRIPTION Normal [facility] Comment on above: Order Comment: Speci men Type: TISSUE SPECIMEN Ordering Facility: [facility] Address: [address] [place] [address] Result Comment: A. B reast, Right, Lumpectomy Received in formalin designated right breast lumpectomy is an oriented lumpectomy specimen that weighs 5 g and measures 3.5 (medial-lateral) x 1.5 (anterior posterior) x 1.5 (superior-inferior) cm. There is an attached unremarkable ellipse of skin that measures 3.2 x 0.6 cm. The specimen is oriented per the requisition as short-superior, long-lateral, skin-anterior and pectoralis fascia-deep. The specimen is imaged to reveal a Alida zipper setter chainstitch. The specimen is inked by the surgeon as follows: superior margin-blue, inferior margin-green, medial margin-orange, lateral margin-red, anterior margin-yellow, and posterior margin-black. The specimen is sectioned from medial to lateral into 6 slices. Sectioning reveals a mckeon-white firm and well-circumscribed lesion with Alida scalp within the superior inferior posterior aspect of slices 2-5 measuring 1.3 (medial-lateral) x 1.2 (superior-inferior) x 0.7 (anterior posterior) cm. This lesion is situated 0.3 cm from the superior margin, 0.2 cm from the inferior margin, 0.2 cm from the posterior margin, 0.6 cm from the anterior skin resection margin, 0.9 cm from the medial margin and 1 cm from the lateral margin. The surrounding breast tissue is soft adipose tissue with fibrous tissue (less than 5%). The specimen was removed from the patient on July 06 at 945 and placed in formalin at 1007. The specimen is entirely submitted as follows: A1. Medial margin perpendicular slice 1. A2. Mass with superior inferior posterior margin and anterior skin slice 2. A3. Mass with superior inferior posterior margin and anterior skin slice 3. A4. Mass with superior inferior posterior margin and anterior skin slice 4. A5. Mass with superior inferior posterior margin and anterior skin slice 5. A6. Lateral margin perpendicular slice 6. WE July 06, 2024 3:25 PM Gross examination performed at [facility], [address], [place] [address] B. Breast, Margin, Right, Excision Received in formalin designated superior is an oriented mckeon-yellow rubbery and lobulated fragment of fibrofatty tissue that weighs 1 g and measures 1.1 x 0.6 x 0.4 cm. There is blue ink that designates the new margin. The new margin is inked blue and the previous margin is inked black. The specimen is serially sectioned to reveal mckeon-yellow rubbery and lobulated cut surfaces. The specimen is entirely submitted in 1 cassettes. WE July 06, 2024 3:30 PM Gross examination performed at [facility], [facility] [place] [id number] C. Breast, Margin, Right, Excision Received in formalin designated inferior is an oriented mckeon-yellow rubbery and lobulated fragment of fibrofatty tissue that weighs 1 g and measures 1.2 x 0.6 x 0.4 cm. There is green ink that designates the new margin. The new margin is inked green and the previous margin is inked blue. The specimen is serially sectioned to reveal mckeon-yellow rubbery and lobulated cut surfaces. The specimen is entirely submitted in 1 cassettes. WE July 06, 2024 3:32 PM Gross examination performed at [facility], [address] [place] [address] Av[address] [place] [id number] D. Breast, Margin, Right, Excision Received in formalin designated medial is an oriented mckeon-yellow rubbery and lobulated fragment of fibrofatty tissue that weighs 1 g and measures 1.2 x 0.6 x 0.3 cm. There is orange ink that designates the new margin. The new margin is inked orange and the previous margin is inked blue. The specimen is serially sectioned to reveal mckeon-yellow rubbery and lobulated cut surfaces. The specimen is entirely submitted in 1 cassettes. WE July 06, 2024 3:34 PM Gross examination performed at [facility], [facility] [place] [address] E. Breast, Margin, Right, Excision Received in formalin designated lateral is an oriented mckeon-yellow rubbery and lobulated fragment of fibrofatty tissue that weighs 1 g and measures 1.5 x 0.5 x 0.3 cm. There is red ink that designates the new margin. The new margin is inked red and the previous margin is inked blue. The specimen is serially sectioned to reveal mckeon-yellow rubbery and lobulated cut surfaces. The specimen is entirely submitted in 2 cassettes. WE July 06, 2024 3:38 PM Gross examination performed at [facility], [address] [place] [address] [place] [address] Performed By: #### 6 6121-5 #### [facility] CLIA [id number] [address] [place] [address] [place] [address] [place] SYNOPTIC REPORT Normal [facility] ital Comment on above: Order Comment: Speci men Type: TISSUE SPECIMEN Ordering Facility: [facility] Address: [address] [place], [place] [address] [address] Result Comment: INVA SIVE CARCINOMA OF THE BREAST: Resection INVASIVE CARCINOMA OF THE BREAST: RESECTION - All Specimens 8th Edition - Protocol posted: 10/05/2023 SPECIMEN Procedure: Excision (less than total mastectomy) Specimen Laterality: Right TUMOR Histologic Type: Invasive carcinoma of no special type (ductal) Histologic Grade (Carpenter Histologic Score): Glandular (Acinar) / Tubular Differentiation: Score 3 Nuclear Pleomorphism: Score 3 Mitotic Rate: Score 2 Overall Grade: Grade 3 (scores of 8 or 9) Tumor Size: Greatest dimension of largest invasive focus (Millimeters): 13 mm Tumor Focality: Single focus of invasive carcinoma Ductal Carcinoma In Situ (DCIS): Not identified Lymphatic and / or Vascular Invasion: Not identified Treatment Effect in the Breast: No known presurgical therapy MARGINS Margin Status for Invasive Carcinoma: All margins negative for invasive carcinoma Distance from Invasive Carcinoma to Closest Margin: 0.5 mm Closest Margin(s) to Invasive Carcinoma: Posterior REGIONAL LYMPH NODES Regional Lymph Node Status: Not applicable (no regional lymph nodes submitted or found) pTNM CLASSIFICATION (AJCC 8th Edition) Reporting of pT, pN, and (when applicable) pM categories is based on information available to the pathologist at the time the report is issued. As per the AJCC (Chapter 1, 8th Ed.) it is the managing physician's responsibility to establish the final pathologic stage based upon all pertinent information, including but potentially not limited to this pathology report. pT Category: pT1c pN Category: pN not assigned (no nodes submitted or found) SPECIAL STUDIES Estrogen Receptor (ER) Status: Positive (greater than 10% of cells demonstrate nuclear positivity) Percentage of Cells with Nuclear Positivity: 91-100% Progesterone Receptor (PgR) Status: Positive Percentage of Cells with Nuclear Positivity: 41-50% HER2 (by immunohistochemistry): Negative (Score 1+) Testing Performed on Comment(s): This synoptic report incorporates the separately submitted final margins. Performed By: #### 6 6121-5 #### [facility] CLIA [id number] [address] [place] Jason 07-04-2024 RASHEEDN Telephone (GENSF) SHANITACARA JIMÉNEZ ([id number]) 1975 F Date Time Provider Department 07/04/24 CATHERINE ARRINGTON During your visit today, we recorded the following information about you: Catherine Arrington RN 07/04/2024 11:03 AM Signed Pre-op call placed to patient. All questions answered for upcoming surgery on Tuesday. Reminder given that surgery registration will call tomorrow afternoon for arrival time on Tuesday. Marybeth is aware breast nurse navigator will call on Tuesday for post-op follow-up. Catherine Arrington RN Allergies As of Date: 07/04/2024 (No Known Allergies) Date Reviewed: 06/25/2024 Reviewed by: Walter Rich PA-C - Fully Assessed Reason for Visit: PreOp Call [[id number]] Prescriptions as of 07/04/2024 - valACYclovir (VALTREX) 1 gram tablet TAKE TWO TABLETS BY MOUTH TWICE DAILY for TWO days NEEDED for cold SORE - iv contrast (will be provided with radiology test) CT ABD/PEL -Inject, intravenously, once for 1 dose.No IV access, insert saline lock prior to the beginning of sedation, infusion, injection of imaging exam. Discontinue saline lock post exam. If Pt. has a central line or IVAD, may access for administration according to line specific nursing protocol. Once exam is complete flush line and de-access according to line specific nursing protocol in the CT contrast administration guidelines link. - enteric contrast (will be provided with radiology test) For CT ABD/PEL W IVCON Routine order Administer, As Directed One Time Only, via Oral, Rectal, both Oral and Rectal, Enteric Tube, Stoma or Indwelling Catheter, Enteric Contrast as designated per enteric contrast guidelines - iv contrast (will be provided with radiology test) CT Chest W -Inject, intravenously, once for 1 dose.No IV access, insert saline lock prior to the beginning of sedation, infusion, injection of imaging exam. Discontinue saline lock post exam. If Pt. has a central line or IVAD, may access for administration according to line specific nursing protocol. Once exam is complete flush line and de-access according to line specific nursing protocol in the CT contrast administration guidelines link. - loratadine (CLARITIN) 10 mg tablet Take 10 mg by mouth once daily. - losartan (COZAAR) 25 mg tablet Take 25 mg by mouth once daily. - albuterol HFA (PROAIR HFA) 90 mcg/actuation inhaler inhale 1 puff by mouth every 4 hours as needed for wheezing/shortnessof breath. as directed - fluticasone (FLONASE) 50 mcg/actuation nasal spray Use 1 [place] in each nostril daily at bedtime. Meds Comments as of 06/21/2013: a Problem List As Of Date 07/04/2024 Noted Resolved ASCUS favor dysplasia [R87.611] 06/23/2006 05/07/2010 URINARY CALCULUS NOS [N20.9] Moderate dysplasia of cervix [N87.1] 05/14/2010 Personal history of cervical dysplasia [Z87.410]05/07/2010 IUD (intrauterine device) in place [Z97.5] 05/14/2010 07/06/2012 PMS (premenstrual syndrome) [N94.3] 07/06/2012 Personal history of breast cancer [Z85.3] 07/09/2013 Status post right mastectomy [Z90.11] 07/16/2013 ER+ (estrogen receptor positive status) [Z17.0] 07/16/2013 Use of tamoxifen (Nolvadex) [Z79.810] 07/16/2013 Status post bilateral breast implants [Z98.82] 02/28/2014 Malignant neoplasm of upper-outer quadrant of r*03/22/2015 BRCA negative [Z13.71] 05/29/2013 Carcinoma of left breast in female, estrogen re*06/2019 Carcinoma of upper-outer quadrant of left breas*06/2019 Essential hypertension [I10] 07/09/2019 PONV (postoperative nausea and vomiting) [R11.2*07/19/2019 Malignant neoplasm of upper-inner quadrant of r*06/01/2024 Recurrent breast cancer, right (HCC) [C50.911] 06/07/2024 Encounter Status:Closed by CATHERINE ARRINGTON on 07/04/24 [facility] CNOVon 06-26-2024 CNOV Office Visit (GMINST ) CARA SINGH ([id number]) 1975 F Date Time Provider Department 06/26/24 11:30 AM EM SWENSON JULIETTE During your visit today, we recorded the following information about you: Em Swenson LGC 06/29/2024 12:08 PM Signed [facility] Department of Medical Genetics Consultation Note Genetic Counselor: Em Swenson [facility] Patient: Cara Singh Patient Name and confirmed at initiation of visit. 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 The ACMG and NCCN do not recommend changing an individual?s medical management based on the presence of this variant alone (Reynolds et al. 2022). Given the conflicting information regarding this genetic variant, medical management for the patient and cancer screening for her relatives should?be based on family history and personal risk factors at this time. Please see below for additional details. IDENTIFICATION AND CHIEF COMPLAINT: Dr. Adam Corona requested a consultation for genetic counseling and risk assessment for Cara Singh, a 49 year old female, for discussion of her personal history of breast cancer and prior genetic testing results. She presents to clinic today to discuss the possibility of a genetic predisposition to cancer, and to further clarify her risks, as well as her family members' risks for cancer. 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 This was treated with right nipple-sparing mastectomy. She took tamoxifen for 2 years but stopped in 05/2015 due to significant hot flashes and mood swings. Cara Ramirez's clinical Integrated BRACAnalysis from 05/2013 was negative for a deleterious mutation. In 2019, at the age of 44, she was diagnosed with stage I invasive mammary carcinoma with lobular morphology of the left breast. This was treated with left nipple sparing mastectomy. She started Tamoxifen in 07/2019 and then stopped it in early 2020 due to side effects again. She underwent updated panel testing 04/2021 at [facility]SH via the [employer] Hereditary cancer test. 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 Additional details and recommendations for the low penetrance CHEK2 I157T variant are outlined below. Most recently, she was diagnosed with local only recurrence of the right breast cancer after an US of the right breast on 05/14/24 showed a 1.2 cm mass corresponding to a palpable mass. US guided core biopsy on 05/21/24 showed grade 2 invasive mammary carcinoma. Breast MRI from 06/04/24 showed known malignancy within the upper inner reconstructed right breast. CT C/A/P on 06/19/24 showed a nonspecific 1 cm soft tissue density in the medial upper right chest wall with no evidence for metastatic disease or lymphadenopathy. Plan for wide local excision of recurrence, no kalen mapping. Plan for adjuvant RT and endocrine therapy. 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 Raynaud phenomenon Rotator cuff strain rehab treatment finish 12/2012 Urinary calculus, unspecified 02/2010, 05/2019 ESWL Varicose veins of other sites PAST SURGICAL HISTORY Procedure Laterality Date BIOPSY BREAST 05/2013 right breast BREAST AUGMENTATION W/PROSTHETIC IMPLANT s/p R mastectomy; new implant 06/2014 COLPOSCOPY CERVIX UPPER/ADJACENT VAGINA 08/15/06 Colposcopy EXC/DSTRJ LINGUAL TONSIL ANY METHOD SPX INSERT INTRAUTERINE DEVICE 05/14/2010 mirena , REMOVED IUD REMOVAL 07/06/12 LITHOTRIPSY XTRCORP SHOCK WAVE 02/2010 Lithotripsy MASTECTOMY HX Left 07/2019 MASTECTOMY, SIMPLE, COMPLETE 06/20/2013 Dr. Garza right breast with sln bx and nipple sparing REVISION OF RECONSTRUCTED BREAST 06/18/14 CANCER SURVEILLANCE HISTORY: Colonoscopy: Yes 09/2021 negative per patient report, results not available for review. EGD: No GI Polyps: No Dermatology: No hx skin cancer REPRODUCTIVE HISTORY AND PERSONAL RISK ASSESSMENT FACTORS: Weight: Last 1 Encounter Wt Readings: Date: Wt: 06/07/2024 66.6 kg (146 lb 13.2 oz) Height: Last 1 Encounter Ht Readings: Date: Ht: 06/07/2024 165.7 cm (5' 5.24) Menarche was at age 12 Premenopausal Uterus Intact: Yes Ovaries Intact: Yes First live a (more content not included)... Normal [facility] HISTORY PHYSICALon HISTORY PHYSICAL HNO ID: [id number] Author: WALTER RICH PA-C Service: ? Author Type: Physician Rate Supervisor Type: H&P Filed: 06/25/2024 09:50 Note Text: [facility] HISTORY AND PHYSICAL EXAMINATION SERVICE DATE: 06/25/2024 SERVICE TIME: 8:40 AM PRIMARY CARE PHYSICIAN: Neena Knox MD Assessment Patient has the following medical conditions which may affect dayana-operative course: Essential hypertension Assessment: compliant with medication, pt plans to reach out to PCP office about recent elevated readings Last BP Last Encounter BP Readings: Date: BP: 06/20/2024 170/92 05/31/2024 172/78 05/04/2024 170/81 09/20/2023 134/80 09/15/2022 145/69 08/20/2021 144/84 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, estrogen receptor positive (HCC) Assessment: s/p left mastectomy 07/2019- no chemo or radiation Malignant 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, estrogen receptor positive (HCC) Assessment: s/p right mastectomy 2013 PONV (postoperative nausea and vomiting) Assessment: . ANESTHESIA FINDINGS: Intubation History: No history of difficult intubation Significant Anesthesia Considerations: potential postop nausea/vomiting Airway History: No history of difficult airway Garcia Activity Status Index: METS: Walk indoors, such as around the house (1.75 METs) Do light work around the house, such as dusting or washing dishes (2.70 METs) Take care of self; that is eating, dressing, bathing, using the toilet (2.75 METs) Walk a block or two on level ground (2.75 METs) Do moderate work around the house, such as vacuuming, sweeping floors, or carrying in groceries (3.50 METs) Do yardwork, such as raking leaves, weeding, or pushing a power mower (4.50 METs) Have sexual relations (5.25 METs) Climb a flight of stairs or walk up a hill (5.50 METs) DASI Score: 28.7 Patient denies any chest pain or undue shortness of breath with the above physical activity. Clinical Frailty Scale: 4. Apparently vulnerable STOP-Bang Score: Snores loudly Has or is being treated for high blood pressure Patient over 50 years old Denies feeling tired, fatigued, or sleepy during the daytime Has not been observed to stop breathing or choking/gasping during sleep BMI less than or equal to 35 kg/m2 Does not have a large neck Non-male patient STOP-Bang Score: 3 I - PHYSICAL EVALUATION AIRWAY Patient intubated: No. Tracheostomy tube not present Mallampati: III. TM distance: >3 FB. Neck ROM: limited flexion. Mouth opening: adequate. Short neck: no. Additional comments: +pain with right rotation and flexion. Thick neck: no Lip Bite Test: II DENTAL Dental findings: teeth intact. II - ANESTHESIA PLAN Anesthetic plan additional comments: *PACC/TCI - anesthesia choice. Beta Ayana Monitoring Plan Post Procedure Analgesic Plan Prepared for Surgery: optimally prepared for surgery. CONSULTS: Patient does not require consults for optimization at this time Planned Anesthetic: anesthesia choice The Following Tests/Procedures Have Been Initiated: No orders of the defined types were placed in this encounter. This is a virtual visit using MyChart video visit. It required patient-provider interaction for the medical decision making as documented below. REASON FOR VISIT: Cara Singh is a 49 year old female who is scheduled for Procedure(s): LUMPECTOMY BREAST (Right) at the request of Dr. Adam Corona for consultation. My final recommendation will be communicated back to the requesting physician by way of shared medical record or letter. Subjective The patient has the following: COVID-19 Immunization Status Current Care Gaps Covid-19 Vaccine ( season) Never done No completion, postpone, frequency change, or communication history exists for this topic. CHIEF COMPLAINT: Recurrent breast cancer, right HPI: Cara Singh is a 49 year old female who is scheduled for Right - LUMPECTOMY BREAST at the request of Dr. Adam Corona for 07/06/2024. She reports history of bilateral breast cancer, s/p mastectomies in the past. She states that in 04/2024 she noticed a small, right breast mass. She denies any dimpling of skin. She denies any recent fever or chills. This is a virtual visit. The visit was conducted using [employer] video visit. It required patient-provider interaction for the medical decision making as documented below. I have communicated my name and active licensure. The patient's identity and physical location were verified at the time of this visit. Either the patient or their legal personnel representative has been informed of the risks and benefits of and alternatives to treatment through a remote evaluation and consents to proceed with the evaluation remotely. REVIEW OF SYSTEMS: General: No weight loss, malaise or fevers. Neurological: No hist (more content not included)... Normal [facility] Jason 06-24-2024 RASHEEDN Telephone (STACIE) CARA SINGH ([id number]) 1975 F Date Time Provider Department 06/24/24 MASCI, JAY A HEMAWS During your visit today, we recorded the following information about you: MonieJay ford DO 06/24/2024 8:28 PM Signed Can let her know that the neck x-rays did not suggest any evidence of cancer. The ultrasound of the thyroid revealed two small benign-appearing nodules but according to standard recommendations, the radiologist recommended an annual ultrasound of the thyroid for up to 5 years to monitor for stability. This can be ordered by her PCP. Please fax a copy of this note and the ultrasound thyroid results to her PCP. DO Karin Kim Melanie, LPN 06/25/2024 9:10 AM Signed Left message for patient to contact office. A copy of this note and US results were faxed to PCP. RAJIV Scott Melissa 06/25/2024 9:16 AM Signed Message relayed to patient Allergies As of Date: 06/24/2024 (No Known Allergies) Date Reviewed: 06/20/2024 Reviewed by: Adam Corona DO - Fully Assessed Reason for Visit: Results [95] Prescriptions as of 06/25/2024 - valACYclovir (VALTREX) 1 gram tablet TAKE TWO TABLETS BY MOUTH TWICE DAILY for TWO days NEEDED for cold SORE - iv contrast (will be provided with radiology test) CT ABD/PEL -Inject, intravenously, once for 1 dose.No IV access, insert saline lock prior to the beginning of sedation, infusion, injection of imaging exam. Discontinue saline lock post exam. If Pt. has a central line or IVAD, may access for administration according to line specific nursing protocol. Once exam is complete flush line and de-access according to line specific nursing protocol in the CT contrast administration guidelines link. - enteric contrast (will be provided with radiology test) For CT ABD/PEL W IVCON Routine order Administer, As Directed One Time Only, via Oral, Rectal, both Oral and Rectal, Enteric Tube, Stoma or Indwelling Catheter, Enteric Contrast as designated per enteric contrast guidelines - iv contrast (will be provided with radiology test) CT Chest W -Inject, intravenously, once for 1 dose.No IV access, insert saline lock prior to the beginning of sedation, infusion, injection of imaging exam. Discontinue saline lock post exam. If Pt. has a central line or IVAD, may access for administration according to line specific nursing protocol. Once exam is complete flush line and de-access according to line specific nursing protocol in the CT contrast administration guidelines link. - loratadine (CLARITIN) 10 mg tablet Take 10 mg by mouth once daily. - losartan (COZAAR) 25 mg tablet Take 25 mg by mouth once daily. - albuterol HFA (PROAIR HFA) 90 mcg/actuation inhaler inhale 1 puff by mouth every 4 hours as needed for wheezing/shortnessof breath. as directed - fluticasone (FLONASE) 50 mcg/actuation nasal spray Use 1 [place] in each nostril daily at bedtime. Meds Comments as of 06/21/2013: a Problem List As Of Date 06/24/2024 Noted Resolved ASCUS favor dysplasia [R87.611] 06/23/2006 05/07/2010 URINARY CALCULUS NOS [N20.9] Moderate dysplasia of cervix [N87.1] 05/14/2010 Personal history of cervical dysplasia [Z87.410]05/07/2010 IUD (intrauterine device) in place [Z97.5] 05/14/2010 07/06/2012 PMS (premenstrual syndrome) [N94.3] 07/06/2012 Personal history of breast cancer [Z85.3] 07/09/2013 Status post right mastectomy [Z90.11] 07/16/2013 ER+ (estrogen receptor positive status) [Z17.0] 07/16/2013 Use of tamoxifen (Nolvadex) [Z79.810] 07/16/2013 Status post bilateral breast implants [Z98.82] 02/28/2014 Malignant neoplasm of upper-outer quadrant of r*03/22/2015 BRCA negative [Z13.71] 05/29/2013 Carcinoma of left breast in female, estrogen re*06/2019 Carcinoma of upper-outer quadrant of left breas*06/2019 Essential hypertension [I10] 07/09/2019 PONV (postoperative nausea and vomiting) [R11.2*07/19/2019 Malignant neoplasm of upper-inner quadrant of r*06/01/2024 Recurrent breast cancer, right (HCC) [C50.911] 06/07/2024 Encounter Status:Closed by CAROL ANN DRAKE on 06/25/24 [facility] Jason 06-22-2024 RASHEEDN Telephone (HEMAWS) ENEIDACARA K ([id number]) 1975 F Date Time Provider Department 06/22/24 JAY FAUST HEMAWS During your visit today, we recorded the following information about you: Makayla Rai 06/22/2024 11:32 AM Signed Patient requesting 06/20 xray and ultrasound results. Informed patient they are still pending. She is asking for a call once completed. Carol Ann Drake LPN 06/25/2024 9:33 AM Signed See other phone note. Carol Ann Drake LPN Allergies As of Date: 06/22/2024 (No Known Allergies) Date Reviewed: 06/20/2024 Reviewed by: Adam Corona DO - Fully Assessed Reason for Visit: Results [95] Prescriptions as of 06/25/2024 - valACYclovir (VALTREX) 1 gram tablet TAKE TWO TABLETS BY MOUTH TWICE DAILY for TWO days NEEDED for cold SORE - iv contrast (will be provided with radiology test) CT ABD/PEL -Inject, intravenously, once for 1 dose.No IV access, insert saline lock prior to the beginning of sedation, infusion, injection of imaging exam. Discontinue saline lock post exam. If Pt. has a central line or IVAD, may access for administration according to line specific nursing protocol. Once exam is complete flush line and de-access according to line specific nursing protocol in the CT contrast administration guidelines link. - enteric contrast (will be provided with radiology test) For CT ABD/PEL W IVCON Routine order Administer, As Directed One Time Only, via Oral, Rectal, both Oral and Rectal, Enteric Tube, Stoma or Indwelling Catheter, Enteric Contrast as designated per enteric contrast guidelines - iv contrast (will be provided with radiology test) CT Chest W -Inject, intravenously, once for 1 dose.No IV access, insert saline lock prior to the beginning of sedation, infusion, injection of imaging exam. Discontinue saline lock post exam. If Pt. has a central line or IVAD, may access for administration according to line specific nursing protocol. Once exam is complete flush line and de-access according to line specific nursing protocol in the CT contrast administration guidelines link. - loratadine (CLARITIN) 10 mg tablet Take 10 mg by mouth once daily. - losartan (COZAAR) 25 mg tablet Take 25 mg by mouth once daily. - albuterol HFA (PROAIR HFA) 90 mcg/actuation inhaler inhale 1 puff by mouth every 4 hours as needed for wheezing/shortnessof breath. as directed - fluticasone (FLONASE) 50 mcg/actuation nasal spray Use 1 [place] in each nostril daily at bedtime. Meds Comments as of 06/21/2013: a Problem List As Of Date 06/22/2024 Noted Resolved ASCUS favor dysplasia [R87.611] 06/23/2006 05/07/2010 URINARY CALCULUS NOS [N20.9] Moderate dysplasia of cervix [N87.1] 05/14/2010 Personal history of cervical dysplasia [Z87.410]05/07/2010 IUD (intrauterine device) in place [Z97.5] 05/14/2010 07/06/2012 PMS (premenstrual syndrome) [N94.3] 07/06/2012 Personal history of breast cancer [Z85.3] 07/09/2013 Status post right mastectomy [Z90.11] 07/16/2013 ER+ (estrogen receptor positive status) [Z17.0] 07/16/2013 Use of tamoxifen (Nolvadex) [Z79.810] 07/16/2013 Status post bilateral breast implants [Z98.82] 02/28/2014 Malignant neoplasm of upper-outer quadrant of r*03/22/2015 BRCA negative [Z13.71] 05/29/2013 Carcinoma of left breast in female, estrogen re*06/2019 Carcinoma of upper-outer quadrant of left breas*06/2019 Essential hypertension [I10] 07/09/2019 PONV (postoperative nausea and vomiting) [R11.2*07/19/2019 Malignant neoplasm of upper-inner quadrant of r*06/01/2024 Recurrent breast cancer, right (HCC) [C50.911] 06/07/2024 Encounter Status:Closed by CAROL ANN DRAKE on 06/25/24 Normal [facility] Jason 06-21-2024 [facility] Telephone (GENSF) CARA SINGH ([id number]) 1975 F Date Time Provider Department 06/21/24 ADAM CORONA During your visit today, we recorded the following information about you: Ellen Mcmillan 06/21/2024 10:15 AM Signed Spoke to patient, confirmed her surgery date and appointments related to her procedure with Dr. Corona on 07/06/24. Allergies As of Date: 06/21/2024 (No Known Allergies) Date Reviewed: 06/20/2024 Reviewed by: Adam Corona DO - Fully Assessed Prescriptions as of 06/21/2024 - valACYclovir (VALTREX) 1 gram tablet TAKE TWO TABLETS BY MOUTH TWICE DAILY for TWO days NEEDED for cold SORE - iv contrast (will be provided with radiology test) CT ABD/PEL -Inject, intravenously, once for 1 dose.No IV access, insert saline lock prior to the beginning of sedation, infusion, injection of imaging exam. Discontinue saline lock post exam. If Pt. has a central line or IVAD, may access for administration according to line specific nursing protocol. Once exam is complete flush line and de-access according to line specific nursing protocol in the CT contrast administration guidelines link. - enteric contrast (will be provided with radiology test) For CT ABD/PEL W IVCON Routine order Administer, As Directed One Time Only, via Oral, Rectal, both Oral and Rectal, Enteric Tube, Stoma or Indwelling Catheter, Enteric Contrast as designated per enteric contrast guidelines - iv contrast (will be provided with radiology test) CT Chest W -Inject, intravenously, once for 1 dose.No IV access, insert saline lock prior to the beginning of sedation, infusion, injection of imaging exam. Discontinue saline lock post exam. If Pt. has a central line or IVAD, may access for administration according to line specific nursing protocol. Once exam is complete flush line and de-access according to line specific nursing protocol in the CT contrast administration guidelines link. - loratadine (CLARITIN) 10 mg tablet Take 10 mg by mouth once daily. - losartan (COZAAR) 25 mg tablet Take 25 mg by mouth once daily. - albuterol HFA (PROAIR HFA) 90 mcg/actuation inhaler inhale 1 puff by mouth every 4 hours as needed for wheezing/shortnessof breath. as directed - fluticasone (FLONASE) 50 mcg/actuation nasal spray Use 1 [place] in each nostril daily at bedtime. Meds Comments as of 06/21/2013: a Problem List As Of Date 06/21/2024 Noted Resolved ASCUS favor dysplasia [R87.611] 06/23/2006 05/07/2010 URINARY CALCULUS NOS [N20.9] Moderate dysplasia of cervix [N87.1] 05/14/2010 Personal history of cervical dysplasia [Z87.410]05/07/2010 IUD (intrauterine device) in place [Z97.5] 05/14/2010 07/06/2012 PMS (premenstrual syndrome) [N94.3] 07/06/2012 Personal history of breast cancer [Z85.3] 07/09/2013 Status post right mastectomy [Z90.11] 07/16/2013 ER+ (estrogen receptor positive status) [Z17.0] 07/16/2013 Use of tamoxifen (Nolvadex) [Z79.810] 07/16/2013 Status post bilateral breast implants [Z98.82] 02/28/2014 Malignant neoplasm of upper-outer quadrant of r*03/22/2015 BRCA negative [Z13.71] 05/29/2013 Carcinoma of left breast in female, estrogen re*06/2019 Carcinoma of upper-outer quadrant of left breas*06/2019 Essential hypertension [I10] 07/09/2019 PONV (postoperative nausea and vomiting) [R11.2*07/19/2019 Malignant neoplasm of upper-inner quadrant of r*06/01/2024 Recurrent breast cancer, right (HCC) [C50.911] 06/07/2024 Encounter Status:Closed by ELLEN [facility]IMLLAN [facility] Office Visit (RADTWS ) CARA SINGH ([id number]) 1975 F Date Time Provider Department 06/20/24 10:30 AM JEANNA TEMPLE During your visit today, we recorded the following information about you: Temperature Pulse Blood pressure 99 degrees 91/minute 170/92 Ita Taylor RN 06/21/2024 2:05 PM Signed Radiation Therapy - Nursing Note (Consult) PATIENT NAME: Cara Singh PATIENT June 20, 2024 [facility] FACILITY/LOCATION: [place] Chief Complaint: breast cancer Reason for visit: Consult. Referring physician: Internal provider Dr Corona Subjective Data: no complaints Additional Data Do you want to see a Spool Tender? No Are you interested in information about fertility? No Status: Patient states there is no possibility she is at this time Stress Scale: On a scale of 0 to 10, what number best describes how much distress you have experienced in the past week?(0 being no distress and 10 being extreme distress) 7 Social work notified: Pt denied need to see social services aide at this time. SIGNED by: KUSUM Moncada Daesung, MD 06/21/2024 2:05 PM Signed Radiation Oncology - New Patient/Consult Note PATIENT NAME: Cara Singh PATIENT REQUESTING PROVIDER: Dr. Adam Corona DIAGNOSIS: Local only recurrence of right breast cancer with history of stage I, pT1a pN0 (sn), grade 1 invasive ductal carcinoma of the right breast in 2013 treated with right mastectomy and sentinel node biopsy 06/20/13 and then bilateral breast implants. Also h/o stage I, pT1b pN0, grade 1 invasive lobular carcinoma of the left breast in 2019 treated with left mastectomy and axillary node dissection on 07/19/19. Cancer Staging Recurrent breast cancer, right (HCC) Staging form: Breast, AJCC 8th Edition - Clinical stage from 05/23/2024: Stage IA (rcT1c, cN0, cM0, G2, ER+, AK+, HER2-) - Unsigned HPI: 49 year old female who presents with above diagnosis, for an opinion regarding the role of radiation therapy in the management of the patient's disease. Final recommendations will be communicated back to the requesting physician by way of the shared medical record, or letter to requesting physician via US mail. 49 year old woman with history of stage I, pT1a pN0 (sn), grade 1 invasive ductal carcinoma of the right breast in 2013 treated with right mastectomy and sentinel node biopsy on 06/20/13 and then bilateral breast implants. She was started on Tamoxifen but she stopped in 2015 due to significant hot flashes and mood swings. She then had stage I, pT1b pN0, grade 1 invasive lobular carcinoma of the left breast in 2019 and was treated with left mastectomy and axillary node dissection. She had Tamoxifen but again stopped it in 2020. 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 She felt a lump in the right breast early this year. US right breast on 05/14/24 showed a 1.2 cm mass at 2:00 corresponding to the palpable mass. No abnormalities are identified in the right axilla. US guided core biopsy of the right breast 2:00 lesion 8 cmfn on 05/21/24 showed grade 2 invasive mammary carcinoma measuring at least 3 mm. It's ER positive (>90%, strong), AK positive (50%, moderate) and Her2 negative. MRI breasts on 06/04/24 showed known malignancy within the upper inner reconstructed right breast measuring 1.1 cm. Oval enhancing mass along the upper outer aspect of the right breast implant, posterior depth, measuring 1.3 x 0.6 cm. While differential diagnosis includes an intramammary lymph node. Second look US on 06/07/24 showed that the lymph node measuring 1.3 cm in the right breast at 10 o'clock, 8 cm from the nipple is benign. CT C/A/P on 06/19/24 showed a nonspecific 1 cm soft tissue density in the medial upper right chest wall. No evidence for metastatic disease or lymphadenopathy. Bone scan showed Mild uptake is identified in the paraspinal mid right cervical aspect of the spine that could be related to uptake within the facet joints that could be related to cervical spondylosis, however metastatic disease cannot be entirely excluded. ALLERGIES No Known Allergies Current Outpatient Medications on File Prior to Visit Medication Sig valACYclovir (VALTREX) 1 gram tablet TAKE TWO TABLETS BY MOUTH TWICE DAILY for TWO days NEEDED for cold SORE iv contrast (will be provided with radiology test) CT ABD/PEL -Inject, intravenously, once for 1 dose.No IV access, insert saline lock prior to the beginning of sedation, infusion, injection of imaging exam. Discontinue saline lock post exam. If Pt. has a central line or IVAD, may access for administration according to line specific nursing protocol. Once exam is complete flush line and de-access according to line specific nursing protocol in the CT contrast administration guidelines link. enteric contrast (will be provid (more content not included)... Normal [facility] US THYROID/PARATHYROIDon US THYROID/PARATHYROID * * *Final Report * * * DATE OF EXAM: Jun 20 2024 11:29AM [facility] [id number] - US THYROID/PARATHYROID / PROCEDURE REASON: Nontoxic single thyroid nodule * * * * Physician Interpretation * * * * EXAMINATION: THYROID ULTRASOUND CLINICAL HISTORY: Nontoxic single thyroid nodule TECHNIQUE: Sonography and Doppler imaging of the thyroid was performed. Images were obtained and stored in a permanent archive. MQ: [id number]_1 COMPARISON: No ultrasound available. RESULT: . Right Lobe: 4.5 cm x 2.1 cm x 2.5 cm Left Lobe: 4.1 cm x 1.3 cm x 2.0 cm Isthmus: 0.4 cm Parenchyma: The parenchyma is homogeneous. NODULES: Most suspicious nodules (up to 4) detailed below: Nodule #1 Location: Right lower pole Size: 1.8 x 1.4 x 1.1 cm Characteristics: Vascularity present Composition: Solid or almost completely solid, 2 points Echogenicity: Isoechoic, 1 point Shape: [id number], 0 points Margin: Smooth, 0 points Echogenic foci: None, 0 points TI-RADS Category: 3 ACR Recommendation: Follow-up imaging at 1, 3 and 5 years is recommended. Nodule #2 Location: Left isthmus Size: 8 x 4 x 4 mm Characteristics: Composition: Solid or almost completely solid, 2 points Echogenicity: Hypoechoic, 2 points Shape: Nqguz-lulx-[id number], 0 points Margin: Smooth, 0 points Echogenic foci: Punctate echogenic foci, 3 points TI-RADS Category: 5 ACR Recommendation: Follow up imaging is advised annually for 5 years. - IMPRESSION: Thyroid nodule(s) have size/category for which ultrasound surveillance is recommended. ACR Recommendation: TI-RADS 5 nodule between 0.5 cm and 1 cm in size . Follow up imaging is advised annually for 5 years. ACR recommendations are strictly based on the size and imaging appearance at the time of the exam and do not consider stability or previous biopsy results. Outpatient Clerk: [facility] Transcribe Date/Time: Jun 23 2024 6:01A Dictated by : MADELINE TAYLOR MD This examination was interpreted and the report reviewed and electronically signed by: MADELINE TAYLOR MD on Jun 23 2024 6:02AM EST [id number] Normal [facility] XR CERVICAL 4V AP/LAT/OBLon 06-20-2024 XR CERVICAL 4V AP/LAT/OBL * * *Final Report* * * DATE OF EXAM: Jun 20 2024 11:36AM [id number] - XR CERVICAL 4V AP/LAT/OBL / PROCEDURE REASON: Spondylosis of cervical region without myelopathy or radiculopathy * * * * Physician Interpretation * * * * EXAMINATION: XR CERVICAL 4V AP/LAT/OBL CLINICAL HISTORY: Neck pain Technique: XR CERVICAL 4V AP/LAT/OBL -- NOT APPLICABLE with 4 views on 4 images Comparison: None RESULT: Counting reference: Craniocervical junction. Anatomic Variants: None. No acute fracture or malalignment. Intervertebral disc spaces are maintained. Intervertebral neuroforaminal narrowing on the right at C3-4 and C4-5 due to facet joint degenerative disease. IMPRESSION: No acute osseous abnormality Outpatient Clerk: [facility] Transcribe Date/Time: Jun 22 2024 3:35P Dictated by : JENIFFER TAPIA MD This examination was interpreted and the report reviewed and electronically signed by: JENIFFER TAPIA MD on Jun 22 2024 3:36PM EST [id number] Normal [facility] CT ABD/PEL W IVCONon 025 CT ABD/PEL W IVCON * * *Final Report* * * DATE OF EXAM: Jun 19 2024 12:27PM [facility] 0530 - CT ABD/PEL W IVCON / PROCEDURE REASON: multiple diagnoses * * * * Physician Interpretation * * * * EXAMINATION: CT ABD/PEL W IVCON CLINICAL HISTORY: Recurrent breast cancer, right (HCC) Personal history of breast cancer TECHNIQUE: CT of the abdomen and pelvis was performed using standard technique, scanning from just above the dome of the diaphragm to the symphysis pubis. Contrast: IV: 100 ml of Omnipaque 350 Oral: 450 ml of Omni 240 10-25ml diluted with water Dose-Length Product (DLP): 500 mGy*cm CT Dose Reduction Employed: Automated exposure control(AEC) and iterative recon COMPARISON: 07/09/2007 RESULT: Lower thorax: Please refer to the accompanying chest CT, which is reported separately. Liver: No mass. Biliary: Gallbladder is nondistended. No biliary duct dilatation. Spleen: No mass. No splenomegaly. Pancreas: No mass or ductal dilatation. Adrenal glands: Unremarkable. Kidneys: Tiny right lower pole renal stone. Subcentimeter left renal cyst, too small to reliably characterize, and statistically most likely a benign finding. Attention on follow-up recommended. No solid, enhancing mass or hydronephrosis in either kidney. Vascular: Normal caliber abdominal aorta . GI tract: No dilation or wall thickening. Slight increased stool in the right colon. Pelvis: Small amount of free fluid, most likely physiologic. Simple 1.9 cm left adnexal cyst and a adjacent 2.1 cm complex cyst are noted. Unremarkable urinary bladder and uterus. Lymph nodes: No abdominal or pelvic lymphadenopathy, by size criteria. Mesentery/Peritoneum/R etroperitoneum: No ascites, pneumoperitoneum or suspicious mass. Soft Tissues/Bones: No destructive osseous lesion. No suspicious body wall findings. IMPRESSION: No evidence for metastatic disease in the abdomen/pelvis. Small right renal stone. Outpatient Clerk: [facility] Transcribe Date/Time: Jun 19 2024 4:11P Dictated by : ROHINI JARAMILLO MD This examination was interpreted and the report reviewed and electronically signed by: ROHINI JARAMILLO MD on Jun 19 2024 4:20PM EST [id number] Normal [facility] [place] CT Abdomen and Pelvis W cont rast [place] 06-19-2024 IMPRESSION: No evidence for metastatic disease in the abdomen/pelvis. Small right renal stone. Outpatient Clerk: [facility] Transcribe Date/Time: Jun 19 2024 4:11P Dictated by : ROHINI JARAMILLO MD This examination was interpreted and the report reviewed and electronically signed by: ROHINI JARAMILLO MD on Jun 19 2024 4:20PM EST [facility] * * *Final Report* * * DATE OF EXAM: Jun 19 2024 12:27PM [facility] 0530 - CT ABD/PEL W IVCON / PROCEDURE REASON: multiple diagnoses * * * * Physician Interpretation * * * * EXAMINATION: CT ABD/PEL W IVCON CLINICAL HISTORY: Recurrent breast cancer, right (HCC) Personal history of breast cancer TECHNIQUE: CT of the abdomen and pelvis was performed using standard technique, scanning from just above the dome of the diaphragm to the symphysis pubis. Contrast: IV: 100 ml of Omnipaque 350 Oral: 450 ml of Omni 240 10-25ml diluted with water Dose-Length Product (DLP): 500 mGy*cm CT Dose Reduction Employed: Automated exposure control(AEC) and iterative recon COMPARISON: 07/09/2007 RESULT: Lower thorax: Please refer to the accompanying chest CT, which is reported separately. Liver: No mass. Biliary: Gallbladder is nondistended. No biliary duct dilatation. Spleen: No mass. No splenomegaly. Pancreas: No mass or ductal dilatation. Adrenal glands: Unremarkable. Kidneys: Tiny right lower pole renal stone. Subcentimeter left renal cyst, too small to reliably characterize, and statistically most likely a benign finding. Attention on follow-up recommended. No solid, enhancing mass or hydronephrosis in either kidney. Vascular: Normal caliber abdominal aorta . GI tract: No dilation or wall thickening. Slight increased stool in the right colon. Pelvis: Small amount of free fluid, most likely physiologic. Simple 1.9 cm left adnexal cyst and a adjacent 2.1 cm complex cyst are noted. Unremarkable urinary bladder and uterus. Lymph nodes: No abdominal or pelvic lymphadenopathy, by size criteria. Mesentery/Peritoneum/R etroperitoneum: No ascites, pneumoperitoneum or suspicious mass. Soft Tissues/Bones: No destructive osseous lesion. No suspicious body wall findings. [facility] Provider, [facility] Edith g Scroggins - 06/19/2024 * * *Final Report* * * DATE OF EXAM: Jun 19 2024 12:27PM [facility] 0530 - CT ABD/PEL W IVCON / PROCEDURE REASON: multiple diagnoses * * * * Physician Interpretation * * * * EXAMINATION: CT ABD/PEL W IVCON CLINICAL HISTORY: Recurrent breast cancer, right (HCC) Personal history of breast cancer TECHNIQUE: CT of the abdomen and pelvis was performed using standard technique, scanning from just above the dome of the diaphragm to the symphysis pubis. Contrast: IV: 100 ml of Omnipaque 350 Oral: 450 ml of Omni 240 10-25ml diluted with water Dose-Length Product (DLP): 500 mGy*cm CT Dose Reduction Employed: Automated exposure control(AEC) and iterative recon COMPARISON: 07/09/2007 RESULT: Lower thorax: Please refer to the accompanying chest CT, which is reported separately. Liver: No mass. Biliary: Gallbladder is nondistended. No biliary duct dilatation. Spleen: No mass. No splenomegaly. Pancreas: No mass or ductal dilatation. Adrenal glands: Unremarkable. Kidneys: Tiny right lower pole renal stone. Subcentimeter left renal cyst, too small to reliably characterize, and statistically most likely a benign finding. Attention on follow-up recommended. No solid, enhancing mass or hydronephrosis in either kidney. Vascular: Normal caliber abdominal aorta . GI tract: No dilation or wall thickening. Slight increased stool in the right colon. Pelvis: Small amount of free fluid, most likely physiologic. Simple 1.9 cm left adnexal cyst and a adjacent 2.1 cm complex cyst are noted. Unremarkable urinary bladder and uterus. Lymph nodes: No abdominal or pelvic lymphadenopathy, by size criteria. Mesentery/Peritoneum/R etroperitoneum: No ascites, pneumoperitoneum or suspicious mass. Soft Tissues/Bones: No destructive osseous lesion. No suspicious body wall findings. IMPRESSION IMPRESSION: No evidence for metastatic disease in the abdomen/pelvis. Small right renal stone. Outpatient Clerk: MELO Transcribe Date/Time: Jun 19 2024 4:11P Dictated by : ROHINI JARAMILLO MD This examination was interpreted and the report reviewed and electronically signed by: ROHINI JARAMILLO MD on Jun 19 2024 4:20PM [facility] CT Abdomen and Pelvis W cont rast IVOrdered By: [facility] Provider on 06-19-[address] [facility] [address] CHEST W IVCONon CT CHEST W IVCON * * *Final Report* * * DATE OF EXAM: Jun 19 2024 12:27PM [facility]VC 0539 - CT CHEST W IVCON / PROCEDURE REASON: multiple diagnoses * * * * Physician Interpretation * * * * EXAMINATION: CT CHEST W IVCON Exam Date/Time: 06/19/2024 12:27 PM CLINICAL HISTORY: Recurrent breast cancer, right (HCC) Personal history of breast cancer TECHNIQUE: Spiral CT acquisition of the chest from the thoracic inlet to the upper abdomen following IV contrast. Contrast: 100 mL Omnipaque [address] Radiation dose: Integrated Dose-length product (DLP) for this visit = 500 mGy*cm CT Dose Reduction Employed: Automated exposure control(AEC) and iterative recon COMPARISON: No available prior RESULT: Heart, pericardium, and thoracic vessels: The heart and great vessels are within normal size limits. No pericardial effusion. Lower neck, lymph nodes, and mediastinum: No thoracic lymphadenopathy, by size criteria. No suspicious mediastinal process. 11 mm right thyroid nodule. Lung parenchyma, pleural space and airways: No suspicious lung nodules, consolidation or infiltrate. No pleural effusions or pneumothorax. Patent central airways. Upper abdomen: Please refer to the accompanying abdomen/pelvis CT, which is reported separately. Bones/Soft tissues: No destructive osseous lesion. Changes of bilateral breast reconstruction/implant s. 1 cm soft tissue density with focal calcification in or biopsy clip in the medial upper right chest wall (axial image 68). IMPRESSION: No evidence for metastatic disease or lymphadenopathy within the chest. Nonspecific 1 cm soft tissue density in the medial upper right chest wall. 11 mm right thyroid lesion is nonspecific. This could be further evaluated with dedicated ultrasound exam, if indicated. Outpatient Clerk: PSCB Transcribe Date/Time: Jun 19 2024 4:20P Dictated by : ROHINI JARAMILLO MD This examination was interpreted and the report reviewed and electronically signed by: ROHINI JARAMILLO MD on Jun 19 2024 4:23PM EST [id number] Normal [facility] [place] CT Chest W contrast [place] IMPRESSION: No evidence for metastatic disease or lymphadenopathy within the chest. Nonspecific 1 cm soft tissue density in the medial upper right chest wall. 11 mm right thyroid lesion is nonspecific. This could be further evaluated with dedicated ultrasound exam, if indicated. Outpatient Clerk: PSCB Transcribe Date/Time: Jun 19 2024 4:20P Dictated by : ROHINI JARAMILLO MD This examination was interpreted and the report reviewed and electronically signed by: ROHINI JARAMILLO MD on Jun 19 2024 4:23PM [facility] * * *Final Report* * * DATE OF EXAM: Jun 19 2024 12:27PM [facility] 0539 - CT CHEST W IVCON / PROCEDURE REASON: multiple diagnoses * * * * Physician Interpretation * * * * EXAMINATION: CT CHEST W IVCON Exam Date/Time: 06/19/2024 12:27 PM CLINICAL HISTORY: Recurrent breast cancer, right (HCC) Personal history of breast cancer TECHNIQUE: Spiral CT acquisition of the chest from the thoracic inlet to the upper abdomen following IV contrast. Contrast: 100 mL Omnipaque [address] Radiation dose: Integrated Dose-length product (DLP) for this visit = 500 mGy*cm CT Dose Reduction Employed: Automated exposure control(AEC) and iterative recon COMPARISON: No available prior RESULT: Heart, pericardium, and thoracic vessels: The heart and great vessels are within normal size limits. No pericardial effusion. Lower neck, lymph nodes, and mediastinum: No thoracic lymphadenopathy, by size criteria. No suspicious mediastinal process. 11 mm right thyroid nodule. Lung parenchyma, pleural space and airways: No suspicious lung nodules, consolidation or infiltrate. No pleural effusions or pneumothorax. Patent central airways. Upper abdomen: Please refer to the accompanying abdomen/pelvis CT, which is reported separately. Bones/Soft tissues: No destructive osseous lesion. Changes of bilateral breast reconstruction/implant s. 1 cm soft tissue density with focal calcification in or biopsy clip in the medial upper right chest wall (axial image 68). [facility] Provider, [facility] - 06/19/2024 * * *Final Report* * * DATE OF EXAM: Jun 19 2024 12:27PM [facility] 0539 - CT CHEST W IVCON / PROCEDURE REASON: multiple diagnoses * * * * Physician Interpretation * * * * EXAMINATION: CT CHEST W IVCON Exam Date/Time: 06/19/2024 12:27 PM CLINICAL HISTORY: Recurrent breast cancer, right (HCC) Personal history of breast cancer TECHNIQUE: Spiral CT acquisition of the chest from the thoracic inlet to the upper abdomen following IV contrast. Contrast: 100 mL Omnipaque [address] Radiation dose: Integrated Dose-length product (DLP) for this visit = 500 mGy*cm CT Dose Reduction Employed: Automated exposure control(AEC) and iterative recon COMPARISON: No available prior RESULT: Heart, pericardium, and thoracic vessels: The heart and great vessels are within normal size limits. No pericardial effusion. Lower neck, lymph nodes, and mediastinum: No thoracic lymphadenopathy, by size criteria. No suspicious mediastinal process. 11 mm right thyroid nodule. Lung parenchyma, pleural space and airways: No suspicious lung nodules, consolidation or infiltrate. No pleural effusions or pneumothorax. Patent central airways. Upper abdomen: Please refer to the accompanying abdomen/pelvis CT, which is reported separately. Bones/Soft tissues: No destructive osseous lesion. Changes of bilateral breast reconstruction/implant s. 1 cm soft tissue density with focal calcification in or biopsy clip in the medial upper right chest wall (axial image 68). IMPRESSION IMPRESSION: No evidence for metastatic disease or lymphadenopathy within the chest. Nonspecific 1 cm soft tissue density in the medial upper right chest wall. 11 mm right thyroid lesion is nonspecific. This could be further evaluated with dedicated ultrasound exam, if indicated. Outpatient Clerk: PSCB Transcribe Date/Time: Jun 19 2024 4:20P Dictated by : ROHINI JARAMILLO MD This examination was interpreted and the report reviewed and electronically signed by: ROHINI JARAMILLO MD on Jun 19 2024 4:23PM [facility] BONE WHOLE BODYon 025 PR BONE WHOLE BODY * * *Final Report* * * DATE OF EXAM: Jun 19 2024 3:04PM [facility] 0014 - PR BONE WHOLE BODY / PROCEDURE REASON: multiple diagnoses * * * * Physician Interpretation * * * * WHOLE BODY BONE SCAN CLINICAL HISTORY: 49 years old Female patient with history of recurrent breast cancer, right (HCC), Personal history of breast cancer. TECHNIQUE: 22.9 millicuries Tc-99m MDP IV. Whole body planar imaging followed in 3-4 hours, both in anterior and posterior views. Additional static images of the skull, chest were obtained. COMPARISON: None. CORRELATION: CT scan of the chest, abdomen and pelvis dated 06/19/2024. RESULT: Mild uptake is identified in the paraspinal mid right aspect of the cervical spine that could be related to uptake within the facet joints that could be related to cervical spondylosis, however metastatic disease cannot be entirely excluded. Further evaluation with cervical spine radiographs is recommended. Otherwise there is no evidence of increased or decreased tracer uptake to suggest osseous metastatic disease on this examination. Increased uptake is identified in the bilateral shoulders, elbows, wrists, small joints of the hands, hips, knees, and feet, consistent with degenerative change. - IMPRESSION: Mild uptake is identified in the paraspinal mid right cervical aspect of the spine that could be related to uptake within the facet joints that could be related to cervical spondylosis, however metastatic disease cannot be entirely excluded. Further evaluation with a cervical spine radiographs is recommended. Otherwise there is no evidence of increased or decreased tracer uptake to suggest osseous metastatic disease on this examination. Mild arthritis/degenerative changes. Outpatient Clerk: MELO Transcribe Date/Time: Jun 19 2024 3:42P Dictated by : CLAYTON LANGFORD MD This examination was interpreted and the report reviewed and electronically signed by: CLAYTON LANGFORD MD on Jun 19 2024 3:47PM EST [id number] [facility] Whole body Bone Viewson 0 06-19-2024 IMPRESSION: Mild uptake is identified in the paraspinal mid right cervical aspect of the spine that could be related to uptake within the facet joints that could be related to cervical spondylosis, however metastatic disease cannot be entirely excluded. Further evaluation with a cervical spine radiographs is recommended. Otherwise there is no evidence of increased or decreased tracer uptake to suggest osseous metastatic disease on this examination. Mild arthritis/degenerative changes. Outpatient Clerk: MELO Transcribe Date/Time: Jun 19 2024 3:42P Dictated by : CLAYTON LANGFORD MD This examination was interpreted and the report reviewed and electronically signed by: CLAYTON LANGFORD MD on Jun 19 2024 3:47PM EST [facility] * * *Final Report* * * DATE OF EXAM: Jun 19 2024 3:04PM [facility] 0014 - PR BONE WHOLE BODY / PROCEDURE REASON: multiple diagnoses * * * * Physician Interpretation * * * * WHOLE BODY BONE SCAN CLINICAL HISTORY: 49 years old Female patient with history of recurrent breast cancer, right (HCC), Personal history of breast cancer. TECHNIQUE: 22.9 millicuries Tc-99m MDP IV. Whole body planar imaging followed in 3-4 hours, both in anterior and posterior views. Additional static images of the skull, chest were obtained. COMPARISON: None. CORRELATION: CT scan of the chest, abdomen and pelvis dated 06/19/2024. RESULT: Mild uptake is identified in the paraspinal mid right aspect of the cervical spine that could be related to uptake within the facet joints that could be related to cervical spondylosis, however metastatic disease cannot be entirely excluded. Further evaluation with cervical spine radiographs is recommended. Otherwise there is no evidence of increased or decreased tracer uptake to suggest osseous metastatic disease on this examination. Increased uptake is identified in the bilateral shoulders, elbows, wrists, small joints of the hands, hips, knees, and feet, consistent with degenerative change. - [facility] Provider, [facility] - 06/19/2024 * * *Final Report* * * DATE OF EXAM: Jun 19 2024 3:04PM [facility] 0014 - [place] BONE WHOLE BODY / PROCEDURE REASON: multiple diagnoses * * * * Physician Interpretation * * * * WHOLE BODY BONE SCAN CLINICAL HISTORY: 49 years old Female patient with history of recurrent breast cancer, right (HCC), Personal history of breast cancer. TECHNIQUE: 22.9 millicuries Tc-99m MDP IV. Whole body planar imaging followed in 3-4 hours, both in anterior and posterior views. Additional static images of the skull, chest were obtained. COMPARISON: None. CORRELATION: CT scan of the chest, abdomen and pelvis dated 06/19/2024. RESULT: Mild uptake is identified in the paraspinal mid right aspect of the cervical spine that could be related to uptake within the facet joints that could be related to cervical spondylosis, however metastatic disease cannot be entirely excluded. Further evaluation with cervical spine radiographs is recommended. Otherwise there is no evidence of increased or decreased tracer uptake to suggest osseous metastatic disease on this examination. Increased uptake is identified in the bilateral shoulders, elbows, wrists, small joints of the hands, hips, knees, and feet, consistent with degenerative change. - IMPRESSION IMPRESSION: Mild uptake is identified in the paraspinal mid right cervical aspect of the spine that could be related to uptake within the facet joints that could be related to cervical spondylosis, however metastatic disease cannot be entirely excluded. Further evaluation with a cervical spine radiographs is recommended. Otherwise there is no evidence of increased or decreased tracer uptake to suggest osseous metastatic disease on this examination. Mild arthritis/degenerative changes. Outpatient Clerk: MELO Transcribe Date/Time: Jun 19 2024 3:42P Dictated by : CLAYTON LANGFORD MD This examination was interpreted and the report reviewed and electronically signed by: CLAYTON LANGFORD MD on Jun 19 2024 3:47PM EST [facility] Radiology Study observation (narrative) [facility] [place] Whole body Bone ViewsOrde red By: [facility] Provider on 06-19-2024 [facility] No Panel Informationon 06-19 Radiology Study observation (narrative) [facility] CNPNon 06-18-2024 CNPN Telephone ([email or web address]) CARA SINGH ([id number]) 1975 F Date Time Provider Department 06/18/24 JEANNA TEMPLE During your visit today, we recorded the following information about you: Debby Henao 06/18/2024 4:11 PM Signed LVM for pt to call back and schedule consult w Dr Temple. Makayla Kimball 06/18/2024 4:10 PM Signed Scheduled with patient Allergies As of Date: 06/18/2024 (No Known Allergies) Date Reviewed: 06/07/2024 Reviewed by: Adam Corona DO - Fully Assessed Prescriptions as of 06/19/2024 - valACYclovir (VALTREX) 1 gram tablet TAKE TWO TABLETS BY MOUTH TWICE DAILY for TWO days NEEDED for cold SORE - iv contrast (will be provided with radiology test) CT ABD/PEL -Inject, intravenously, once for 1 dose.No IV access, insert saline lock prior to the beginning of sedation, infusion, injection of imaging exam. Discontinue saline lock post exam. If Pt. has a central line or IVAD, may access for administration according to line specific nursing protocol. Once exam is complete flush line and de-access according to line specific nursing protocol in the CT contrast administration guidelines link. - enteric contrast (will be provided with radiology test) For CT ABD/PEL W IVCON Routine order Administer, As Directed One Time Only, via Oral, Rectal, both Oral and Rectal, Enteric Tube, Stoma or Indwelling Catheter, Enteric Contrast as designated per enteric contrast guidelines - iv contrast (will be provided with radiology test) CT Chest W -Inject, intravenously, once for 1 dose.No IV access, insert saline lock prior to the beginning of sedation, infusion, injection of imaging exam. Discontinue saline lock post exam. If Pt. has a central line or IVAD, may access for administration according to line specific nursing protocol. Once exam is complete flush line and de-access according to line specific nursing protocol in the CT contrast administration guidelines link. - loratadine (CLARITIN) 10 mg tablet Take 10 mg by mouth once daily. - losartan (COZAAR) 25 mg tablet Take 25 mg by mouth once daily. - OREGANO OIL ORAL Take by mouth. Intermittently for sinus congestion - albuterol HFA (PROAIR HFA) 90 mcg/actuation inhaler inhale 1 puff by mouth every 4 hours as needed for wheezing/shortnessof breath. as directed - fluticasone (FLONASE) 50 mcg/actuation nasal spray Use 1 [place] in each nostril daily at bedtime. Meds Comments as of 06/21/2013: a Problem List As Of Date 06/18/2024 Noted Resolved ASCUS favor dysplasia [R87.611] 06/23/2006 05/07/2010 URINARY CALCULUS NOS [N20.9] Moderate dysplasia of cervix [N87.1] 05/14/2010 Personal history of cervical dysplasia [Z87.410]05/07/2010 IUD (intrauterine device) in place [Z97.5] 05/14/2010 07/06/2012 PMS (premenstrual syndrome) [N94.3] 07/06/2012 Personal history of breast cancer [Z85.3] 07/09/2013 Status post right mastectomy [Z90.11] 07/16/2013 ER+ (estrogen receptor positive status) [Z17.0] 07/16/2013 Use of tamoxifen (Nolvadex) [Z79.810] 07/16/2013 Status post bilateral breast implants [Z98.82] 02/28/2014 Malignant neoplasm of upper-outer quadrant of r*03/22/2015 BRCA negative [Z13.71] 05/29/2013 Carcinoma of left breast in female, estrogen re*06/2019 Carcinoma of upper-outer quadrant of left breas*06/2019 Essential hypertension [I10] 07/09/2019 PONV (postoperative nausea and vomiting) [R11.2*07/19/2019 Malignant neoplasm of upper-inner quadrant of r*06/01/2024 Recurrent breast cancer, right (HCC) [C50.911] 06/07/2024 Encounter Status:Closed by ITA TAYLOR on 06/19/24 [facility] 06-15-2024 CNPN Telephone (AVPRAD) CARA SINGH ([id number]) 1975 F Date Time Provider Department 06/15/24 ADAM CORONA AVPRAD During your visit today, we recorded the following information about you: Adam Corona DO 06/15/2024 5:09 PM Signed Marybeth and I spoke about her concerns - 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 She has questions about hysterectomy and oophorectomy - she will discuss with Medical Oncology (regarding endocrine therapy impact) and genetics. Discussed recommendation for adjuvant radiation. Will refer to Dr. Temple. Reviewed surgical recommendation for wide excision without kalen assessment once metastatic survey is completed (scheduled next week). Adam Corona DO Breast Surgery Allergies As of Date: 06/15/2024 (No Known Allergies) Date Reviewed: 06/07/2024 Reviewed by: Adam Corona DO - Fully Assessed Prescriptions as of 06/15/2024 - valACYclovir (VALTREX) 1 gram tablet TAKE TWO TABLETS BY MOUTH TWICE DAILY for TWO days NEEDED for cold SORE - iv contrast (will be provided with radiology test) CT ABD/PEL -Inject, intravenously, once for 1 dose.No IV access, insert saline lock prior to the beginning of sedation, infusion, injection of imaging exam. Discontinue saline lock post exam. If Pt. has a central line or IVAD, may access for administration according to line specific nursing protocol. Once exam is complete flush line and de-access according to line specific nursing protocol in the CT contrast administration guidelines link. - enteric contrast (will be provided with radiology test) For CT ABD/PEL W IVCON Routine order Administer, As Directed One Time Only, via Oral, Rectal, both Oral and Rectal, Enteric Tube, Stoma or Indwelling Catheter, Enteric Contrast as designated per enteric contrast guidelines - iv contrast (will be provided with radiology test) CT Chest W -Inject, intravenously, once for 1 dose.No IV access, insert saline lock prior to the beginning of sedation, infusion, injection of imaging exam. Discontinue saline lock post exam. If Pt. has a central line or IVAD, may access for administration according to line specific nursing protocol. Once exam is complete flush line and de-access according to line specific nursing protocol in the CT contrast administration guidelines link. - loratadine (CLARITIN) 10 mg tablet Take 10 mg by mouth once daily. - losartan (COZAAR) 25 mg tablet Take 25 mg by mouth once daily. - OREGANO OIL ORAL Take by mouth. Intermittently for sinus congestion - albuterol HFA (PROAIR HFA) 90 mcg/actuation inhaler inhale 1 puff by mouth every 4 hours as needed for wheezing/shortnessof breath. as directed - fluticasone (FLONASE) 50 mcg/actuation nasal spray Use 1 [place] in each nostril daily at bedtime. Meds Comments as of 06/21/2013: a Problem List As Of Date 06/15/2024 Noted Resolved ASCUS favor dysplasia [R87.611] 06/23/2006 05/07/2010 URINARY CALCULUS NOS [N20.9] Moderate dysplasia of cervix [N87.1] 05/14/2010 Personal history of cervical dysplasia [Z87.410]05/07/2010 IUD (intrauterine device) in place [Z97.5] 05/14/2010 07/06/2012 PMS (premenstrual syndrome) [N94.3] 07/06/2012 Personal history of breast cancer [Z85.3] 07/09/2013 Status post right mastectomy [Z90.11] 07/16/2013 ER+ (estrogen receptor positive status) [Z17.0] 07/16/2013 Use of tamoxifen (Nolvadex) [Z79.810] 07/16/2013 Status post bilateral breast implants [Z98.82] 02/28/2014 Malignant neoplasm of upper-outer quadrant of r*03/22/2015 BRCA negative [Z13.71] 05/29/2013 Carcinoma of left breast in female, estrogen re*06/2019 Carcinoma of upper-outer quadrant of left breas*06/2019 Essential hypertension [I10] 07/09/2019 PONV (postoperative nausea and vomiting) [R11.2*07/19/2019 Malignant neoplasm of upper-inner quadrant of r*06/01/2024 Recurrent breast cancer, right (HCC) [C50.911] 06/07/2024 Encounter Status:Closed by ADAM CORONA on 06/15/24 [facility] CNPN Telephone (GENSF) CARA SINGH ([id number]) 1975 F Date Time Provider Department 06/15/24 ELLEN LAWSON GENSF During your visit today, we recorded the following information about you: Ellen Lawson, RN 06/15/2024 10:[address] Corona, discussed Tumor Board recommendations with patient. Patient asks if the possibility of having a hysterectomy was discussed? I explained that I did not see that written in the note, but she could ask Dr Corona about it next week after her scans are complete. Patient verbalized an understanding of this information. Allergies As of Date: 06/15/2024 (No Known Allergies) Date Reviewed: 06/07/2024 Reviewed by: Adam Corona DO - Fully Assessed Reason for Visit: Patient Question [1437] Prescriptions as of 06/15/2024 - valACYclovir (VALTREX) 1 gram tablet TAKE TWO TABLETS BY MOUTH TWICE DAILY for TWO days NEEDED for cold SORE - iv contrast (will be provided with radiology test) CT ABD/PEL -Inject, intravenously, once for 1 dose.No IV access, insert saline lock prior to the beginning of sedation, infusion, injection of imaging exam. Discontinue saline lock post exam. If Pt. has a central line or IVAD, may access for administration according to line specific nursing protocol. Once exam is complete flush line and de-access according to line specific nursing protocol in the CT contrast administration guidelines link. - enteric contrast (will be provided with radiology test) For CT ABD/PEL W IVCON Routine order Administer, As Directed One Time Only, via Oral, Rectal, both Oral and Rectal, Enteric Tube, Stoma or Indwelling Catheter, Enteric Contrast as designated per enteric contrast guidelines - iv contrast (will be provided with radiology test) CT Chest W -Inject, intravenously, once for 1 dose.No IV access, insert saline lock prior to the beginning of sedation, infusion, injection of imaging exam. Discontinue saline lock post exam. If Pt. has a central line or IVAD, may access for administration according to line specific nursing protocol. Once exam is complete flush line and de-access according to line specific nursing protocol in the CT contrast administration guidelines link. - loratadine (CLARITIN) 10 mg tablet Take 10 mg by mouth once daily. - losartan (COZAAR) 25 mg tablet Take 25 mg by mouth once daily. - OREGANO OIL ORAL Take by mouth. Intermittently for sinus congestion - albuterol HFA (PROAIR HFA) 90 mcg/actuation inhaler inhale 1 puff by mouth every 4 hours as needed for wheezing/shortnessof breath. as directed - fluticasone (FLONASE) 50 mcg/actuation nasal spray Use 1 [place] in each nostril daily at bedtime. Meds Comments as of 06/21/2013: a Problem List As Of Date 06/15/2024 Noted Resolved ASCUS favor dysplasia [R87.611] 06/23/2006 05/07/2010 URINARY CALCULUS NOS [N20.9] Moderate dysplasia of cervix [N87.1] 05/14/2010 Personal history of cervical dysplasia [Z87.410]05/07/2010 IUD (intrauterine device) in place [Z97.5] 05/14/2010 07/06/2012 PMS (premenstrual syndrome) [N94.3] 07/06/2012 Personal history of breast cancer [Z85.3] 07/09/2013 Status post right mastectomy [Z90.11] 07/16/2013 ER+ (estrogen receptor positive status) [Z17.0] 07/16/2013 Use of tamoxifen (Nolvadex) [Z79.810] 07/16/2013 Status post bilateral breast implants [Z98.82] 02/28/2014 Malignant neoplasm of upper-outer quadrant of r*03/22/2015 BRCA negative [Z13.71] 05/29/2013 Carcinoma of left breast in female, estrogen re*06/2019 Carcinoma of upper-outer quadrant of left breas*06/2019 Essential hypertension [I10] 07/09/2019 PONV (postoperative nausea and vomiting) [R11.2*07/19/2019 Malignant neoplasm of upper-inner quadrant of r*06/01/2024 Recurrent breast cancer, right (HCC) [C50.911] 06/07/2024 Encounter Status:Closed by ELLEN LAWSON on 06/15/24 [facility] CARA [facility] ([id number]) 1975 F Date Time Provider Department 06/12/24 BROOKE RAZA During your visit today, we recorded the following information about you: Brooke Raza, RN 06/12/2024 10:49 AM Signed Patient called and left a message requesting return call from this nurse. Her call was returned and she was inquiring about the possibility of holding surgery for 07/06 due to her spring break being the following week. She is concerned about taking additional time off and her job. This nurse will speak with Dr Corona and follow back up with patient. She was appreciative of return call and denied any further questions or concerns at this time. Brooke Raza RN Allergies As of Date: 06/12/2024 (No Known Allergies) Date Reviewed: 06/07/2024 Reviewed by: Adam Corona DO - Fully Assessed Reason for Visit: Returning Patient's Call [[phone]] Prescriptions as of 06/13/2024 - valACYclovir (VALTREX) 1 gram tablet TAKE TWO TABLETS BY MOUTH TWICE DAILY for TWO days NEEDED for cold SORE - iv contrast (will be provided with radiology test) CT ABD/PEL -Inject, intravenously, once for 1 dose.No IV access, insert saline lock prior to the beginning of sedation, infusion, injection of imaging exam. Discontinue saline lock post exam. If Pt. has a central line or IVAD, may access for administration according to line specific nursing protocol. Once exam is complete flush line and de-access according to line specific nursing protocol in the CT contrast administration guidelines link. - enteric contrast (will be provided with radiology test) For CT ABD/PEL W IVCON Routine order Administer, As Directed One Time Only, via Oral, Rectal, both Oral and Rectal, Enteric Tube, Stoma or Indwelling Catheter, Enteric Contrast as designated per enteric contrast guidelines - iv contrast (will be provided with radiology test) CT Chest W -Inject, intravenously, once for 1 dose.No IV access, insert saline lock prior to the beginning of sedation, infusion, injection of imaging exam. Discontinue saline lock post exam. If Pt. has a central line or IVAD, may access for administration according to line specific nursing protocol. Once exam is complete flush line and de-access according to line specific nursing protocol in the CT contrast administration guidelines link. - loratadine (CLARITIN) 10 mg tablet Take 10 mg by mouth once daily. - losartan (COZAAR) 25 mg tablet Take 25 mg by mouth once daily. - OREGANO OIL ORAL Take by mouth. Intermittently for sinus congestion - albuterol HFA (PROAIR HFA) 90 mcg/actuation inhaler inhale 1 puff by mouth every 4 hours as needed for wheezing/shortnessof breath. as directed - fluticasone (FLONASE) 50 mcg/actuation nasal spray Use 1 [place] in each nostril daily at bedtime. Meds Comments as of 06/21/2013: a Problem List As Of Date 06/12/2024 Noted Resolved ASCUS favor dysplasia [R87.611] 06/23/2006 05/07/2010 URINARY CALCULUS NOS [N20.9] Moderate dysplasia of cervix [N87.1] 05/14/2010 Personal history of cervical dysplasia [Z87.410]05/07/2010 IUD (intrauterine device) in place [Z97.5] 05/14/2010 07/06/2012 PMS (premenstrual syndrome) [N94.3] 07/06/2012 Personal history of breast cancer [Z85.3] 07/09/2013 Status post right mastectomy [Z90.11] 07/16/2013 ER+ (estrogen receptor positive status) [Z17.0] 07/16/2013 Use of tamoxifen (Nolvadex) [Z79.810] 07/16/2013 Status post bilateral breast implants [Z98.82] 02/28/2014 Malignant neoplasm of upper-outer quadrant of r*03/22/2015 BRCA negative [Z13.71] 05/29/2013 Carcinoma of left breast in female, estrogen re*06/2019 Carcinoma of upper-outer quadrant of left breas*06/2019 Essential hypertension [I10] 07/09/2019 PONV (postoperative nausea and vomiting) [R11.2*07/19/2019 Malignant neoplasm of upper-inner quadrant of r*06/01/2024 Recurrent breast cancer, right (HCC) [C50.911] 06/07/2024 Encounter Status:Closed by BROOKE RAZA on 06/13/24 [facility] CNOVon 06-07-2024 CNOV Office Visit (GENSF) CARA SINGH ([id number]) 1975 F Date Time Provider Department 06/07/24 10:30 AM ADAM CORONA During your visit today, we recorded the following information about you: Weight Height 66.6 kg 1.657 m Adam Corona, 06/07/2024 11:09 AM Signed BREAST SURGICAL ONCOLOGY REFERRING PROVIDER: Neena Knox MD [address] [facility] [id number] Consult requested for an opinion regarding the evaluation and treatment of breast cancer. My final impression and recommendations will be communicated back to the requesting physician by way of the shared medical record or letter via US mail. SUBJECTIVE: REASON FOR TODAY'S VISIT: Patient presents with: Breast Cancer HISTORY of PRESENT ILLNESS: Cara Snigh is a 49 year old female who presents for an evaluation of a recurrence of right breast cancer. She found a lump in the right breast in April of this year. She was sent for breast imaging. Diagnosis was made at [facility] by means of ultrasound-guided core biopsy of Right breast. 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 Cara Singh presents with her Fly for evaluation and treatment recommendations. She did well with biopsy. She denies palpable mass, nipple discharge, or overlying skin changes. She had second look ultrasound today after MRI. She took endocrine therapy for 1-2 years after her right breast cancer in 2013, but not after her left breast cancer in 2019. Per Radha Christianson PA-C note: In 2013, she had Stage l (pT1a N0) right invasive ductal carcinoma. 03/2013 screening mammogram was abnormal for which subsequent right diagnostic imaging revealed a cluster of calcifications in the UOQ near the nipple. 04/2013 right mammotome biopsy revealed Grade 2 IDC, ER+(>95%)/AK+(80%)/HER 2-. 04/2013 breast MRI revealed bilateral enlarged axillary LNs. 06/2013 right nipple-sparing mastectomy/SLNB and TE placement by Drs. Garza/Brodie revealed Grade 2 IDC, 1.1 mm. Margins were negative (closest 9 mm). 0/3 SLN were involved. No LVI. She took tamoxifen for 2 years but stopped in 05/2015 due to significant hot flashes and mood swings. 11/2013 she had a right TE exchange for permanent smooth round silicone retropectoral implant and left breast augmentation with smooth round silicone retropectoral implant, and 06/2014 she had right reconstructed breast revision and an implant exchange bilaterally by Dr. Chirinos. In 2019, she had Stage 1 (pT1b N0 M0) left invasive mammary carcinoma in the upper outer quadrant of breast. At OSH she had an abnormal screening mammogram in 04/2019 for which left US revealed a 9 mm lobulated mass at 2:00, 5 cmfn. 06/2019 left ultrasound guided core biopsy at OSH showed Grade 1 Invasive mammary carcinoma with ductal and lobular features, ER+(90%)/AK+(80%)/HER2 -. 07/2019 left nipple sparing mastectomy/SLNB and TE placement with removal of implant by Drs. Garza/Brodie showed an 8 mm Grade 1 Invasive mammary carcinoma with lobular morphology. 0/ SLNB were involved. Margins were negative (closest 4 mm). No LVI. 10/2019 she had a TE exchange for a permanent smooth round silicone retropectoral implant by Dr. Chirinos. Oncotype RS was 14 corresponding to a 4% risk of distant recurrence at 10 years; thus chemotherapy was not recommended. She started Tamoxifen in 07/2019 and then stopped it in early 2020 due to side effects again. She is not interested in going back on any type of medication. She has not seen Med/Onc Dr. Faust since 2019. She reports that she was advised there isn't a significant benefit of taking Tamoxifen following mastectomies. 05/2013 Cara Ramirez's clinical Integrated BRACAnalysis was negative for a deleterious mutation. 04/2021 she returned for panel testing at OSH. She shared the results with me which were uploaded into the chart. 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 Smoker: No As part of today's visit, I have reviewed and updated as necessary: Current medication list, Past Medical History, Past Surgical History, Allergies, Family History, Social History, and OBGYN History HISTORY OF BREAST PROCEDURE(S): Breast biopsy: Yes, as above Breast cysts: No Breast surgery: Yes, as above Breast cancer: Yes, as above. OBSTETRIC RELATED HISTORY: Patient did breast feed Age at of First Child: 31 years of age. Age at Onset of Menses: Patient does not remember. Age at Menopause: The patient is not menopausal at this time. P: 2 Patient's last menstrual period was 05/01/2024 (exact date). Exogenous Hormone Use: Tamoxifen x 1-2 years last taken ~9016-6022 IUD - in the past (more than 20 years ago) FAMILY HISTORY: The patient is not of [place] (more content not included)... Normal [facility] US BREAST LTD RTon 06-07 [facility] [employer] BREAST LTD RT * * *Final Report* * * DATE OF EXAM: Jun 07 2024 9:15AM [facility] 0594 - [employer] BREAST [place] RT / PROCEDURE REASON: Breast disorder * * * * Physician Interpretation * * * * [facility] [address] [place] [id number] #[id number] - [facility] [employer] BREAST [place] RT HISTORY: 49 year-old patient seen for diagnostic evaluation of the finding(s) described on prior MRI in the right breast. The patient has the following personal history of breast cancer: invasive mammary carcinoma, in the right breast in May,. COMPARISON STUDIES: The present examination has been compared to prior imaging studies dated 10/21/2015 (mammogram), 06/22/2019 (ultrasound), 06/26/2019 (mammogram), 05/14/2024 (ultrasound) and 06/01/2024 (MRI). ULTRASOUND TECHNIQUE: Targeted ultrasound of the indicated area was performed. Grady scale images were saved. ULTRASOUND FINDINGS: There is a lymph node measuring 1.3 cm in the right breast at 10 o'clock, 8 cm from the nipple. This demonstrates morphologically normal appearance. This correlates with the oval mass in the upper outer quadrant described on recent MRI dated 06/01/2024. There are no suspicious findings in the imaged area. IMPRESSION: Lymph node measuring 1.3 cm in the right breast at 10 o'clock, 8 cm from the nipple is benign. This correlates with the oval mass in the upper outer quadrant described on recent MRI dated 06/01/2024. Continued surgical consultation is recommended for the known malignancy in the right breast. The patient is under the care of Dr. Corona. BI-RADS Category 2: Benign Interpreting Radiologist: Ariana Schmid M.D. Electronically signed on: 06/07/2024 Outpatient Clerk: MYLES Transcrijem Date/Time: Jun 07 2024 9:05A Dictated by : ARIANA SCHMID MD This examination was interpreted and the report reviewed and electronically signed by: ARIANA SCHMID MD on Jun 07 2024 10:21AM EST [id number] Normal [facility] US Breast - right limitedon 06-07-2024 IMPRESSION: Lymph node measuring 1.3 cm in the right breast at 10 o'clock, 8 cm from the nipple is benign. This correlates with the oval mass in the upper outer quadrant described on recent MRI dated 06/01/2024. Continued surgical consultation is recommended for the known malignancy in the right breast. The patient is under the care of Dr. Corona. BI-RADS Category 2: Benign Interpreting Radiologist: Ariana Schmid M.D. Electronically signed on: 06/07/2024 Outpatient Clerk: MYLES Transcrijem Date/Time: Jun 07 2024 9:05A Dictated by : ARIANA SCHMID MD This examination was interpreted and the report reviewed and electronically signed by: ARIANA SCHMID MD on Jun 07 2024 10:21AM EST [facility] * * *Final Report* * * DATE OF EXAM: Jun 07 2024 9:15AM [facility] 0594 - [facility] [employer] BREAST [place] RT / PROCEDURE REASON: Breast disorder * * * * Physician Interpretation * * * * [facility] BREAST [facility] [address] [place] [address] #[id number] - [facility] US BREAST [place] RT HISTORY: 49 year-old patient seen for diagnostic evaluation of the finding(s) described on prior MRI in the right breast. The patient has the following personal history of breast cancer: invasive mammary carcinoma, in the right breast in May,. COMPARISON STUDIES: The present examination has been compared to prior imaging studies dated 10/21/2015 (mammogram), 06/22/2019 (ultrasound), 06/26/2019 (mammogram), 05/14/2024 (ultrasound) and 06/01/2024 (MRI). ULTRASOUND TECHNIQUE: Targeted ultrasound of the indicated area was performed. Grady scale images were saved. ULTRASOUND FINDINGS: There is a lymph node measuring 1.3 cm in the right breast at 10 o'clock, 8 cm from the nipple. This demonstrates morphologically normal appearance. This correlates with the oval mass in the upper outer quadrant described on recent MRI dated 06/01/2024. There are no suspicious findings in the imaged area. [facility] Provider, Cc Imagmn g [place] - 06/07/2024 * * *Final Report* * * DATE OF EXAM: Jun 07 2024 9:15AM [facility] 0594 - [facility] [employer] BREAST [place] RT / PROCEDURE REASON: Breast disorder * * * * Physician Interpretation * * * * [facility] [address] [place] [address] #[id number] - [facility] [employer] RT HISTORY: 49 year-old patient seen for diagnostic evaluation of the finding(s) described on prior MRI in the right breast. The patient has the following personal history of breast cancer: invasive mammary carcinoma, in the right breast in May,. COMPARISON STUDIES: The present examination has been compared to prior imaging studies dated 10/21/2015 (mammogram), 06/22/2019 (ultrasound), 06/26/2019 (mammogram), 05/14/2024 (ultrasound) and 06/01/2024 (MRI). ULTRASOUND TECHNIQUE: Targeted ultrasound of the indicated area was performed. Grady scale images were saved. ULTRASOUND FINDINGS: There is a lymph node measuring 1.3 cm in the right breast at 10 o'clock, 8 cm from the nipple. This demonstrates morphologically normal appearance. This correlates with the oval mass in the upper outer quadrant described on recent MRI dated 06/01/2024. There are no suspicious findings in the imaged area. IMPRESSION IMPRESSION: Lymph node measuring 1.3 cm in the right breast at 10 o'clock, 8 cm from the nipple is benign. This correlates with the oval mass in the upper outer quadrant described on recent MRI dated 06/01/2024. Continued surgical consultation is recommended for the known malignancy in the right breast. The patient is under the care of Dr. Corona. BI-RADS Category 2: Benign Interpreting Radiologist: Ariana Schmid M.D. Electronically signed on: 06/07/2024 Outpatient Clerk: MYLES Transcrijem Date/Time: Jun 07 2024 9:05A Dictated by : ARIANA SCHMID MD This examination was interpreted and the report reviewed and electronically signed by: ARIANA SCHMID MD on Jun 07 2024 10:21AM EST [facility] Radiology Study observation (narrative) [facility] US Breast - right limitedOrd ered By: Ccf Provider on 06-07-2024 [facility] MRI BREAST 3D POST PROCESSIN Jose J 06-01-2024 MRI BREAST 3D POST PROCESSING * * *Final Report* * * DATE OF EXAM: Jun 01 2024 8:36AM [facility] 0788 - MRI BREAST 3D POST PROCESSING / PROCEDURE REASON: N64.9-Breast disorder * * * * Physician Interpretation * * * * [place] [address] #[id number] - MRI BREAST WO/W IVCON DANE #[id number] - MRI BREAST 3D POST PROCESSING HISTORY: 49 year-old patient seen for diagnostic evaluation of new right breast cancer. The patient has a history of CHEK2 mutation, right invasive ductal carcinoma (2013) status post right mastectomy, left invasive mammary carcinoma (2019) status post mastectomy. Evaluate for treatment planning. COMPARISON STUDIES: The present examination has been compared to prior imaging studies dated 06/26/2019 (mammogram), 06/26/2019, 05/14/2024 (ultrasound) and 05/21/2024. BREAST MRI: TECHNIQUE: The patient was studied using the dedicated breast coil in the Siemens 1.5 Aleida scanner. Initial axial T1W NFS, STIR imaging was carried out followed by axial T1-weighted GRE imaging both before and after IV administration of 12 ml of Dotarem. Subsequently, subtraction imaging and 3-D reconstruction were completed on an independent workstation. An additional [id number] resolution sequence was performed after the first two 1 minute post-contrast sequences. Complex volumetric analysis requiring post processing was performed using a semi-automated software Schoology, on an independent workstation by the physician, with images created, reviewed, and archived. FINDINGS: The breasts are almost entirely fat. There is minimal background parenchymal enhancement. The background parenchymal enhancement is symmetrical. There are bilateral retro-pectoral silicone implants, which may obscure the breast parenchyma, limiting visualization. The implants appear smooth in contour. Silicone specific sequences were not obtained, limited evaluation for implant integrity. There is no apparent dayana-implant effusion or evidence of rupture or leak. RIGHT BREAST: Postoperative findings of mastectomy with implant reconstruction. At the site of the biopsy-proven malignancy within the upper inner reconstructed breast, there is a 0.7 x 0.7 x 1.1 cm irregular enhancing mass with susceptibility artifact related to the Alida Coater Operator Insulation Board reflector (SE 54251, IM 141 and SE 100, IM 132). There is 1.3 x 0.6 cm oval enhancing mass with mild T2 hyperintensity the upper outer aspect of the implant (SE 49696, IM 126), posterior depth. This demonstrates washout enhancement kinetics. No additional suspicious enhancing masses or areas of non-mass enhancement. There is no abnormal enhancement within the nipple or chest wall. LEFT BREAST: Postoperative findings of mastectomy with implant reconstruction. There are no suspicious enhancing masses or areas of non-mass enhancement. LYMPH NODES: No axillary or internal mammary lymphadenopathy bilaterally. IMPRESSION: Known malignancy within the upper inner reconstructed right breast measuring 1.1 cm with associated artifact from Alida Coater Operator Insulation Board reflector. Surgical consultation is recommended. Oval enhancing mass along the upper outer aspect of the right breast implant, posterior depth, measuring 1.3 x 0.6 cm. While differential diagnosis includes an intramammary lymph node, second look ultrasound is recommended for further evaluation. If there is no sonographic correlate, surgical consultation would be recommended as this finding is not amenable to MRI-guided biopsy. A breast imaging nurse navigator will contact the patient to assist in scheduling second look ultrasound. BI-RADS Category 0: Incomplete: Needs Additional Imaging Evaluation Interpreting Radiologist: Ariana Schmid M.D. Resident/Fellow: Leticia Cheung D.O. Electronically signed on: 06/04/2024 Outpatient Clerk: MYLES Transcribe Date/Time: Jun 01 2024 8:14A Dictated by : LETICIA CHEUNG, DO This examination was interpreted and the report reviewed and electronically signed by: ARIANA SCHMID MD on Jun 04 2024 4:05PM EST [id number] [facility] MRI BREAST WO/W IVCON BILon 06-01-2024 MRI BREAST WO/W IVCON DANE * * *Final Report* * * DATE OF EXAM: Jun 01 2024 8:36AM [facility] 0773 - MRI BREAST WO/W IVCON DANE / PROCEDURE REASON: N64.9-Breast disorder * * * * Physician Interpretation * * * * [place] [address] #[id number] - MRI BREAST WO/W IVCON DANE #[id number] - MRI BREAST 3D POST PROCESSING HISTORY: 49 year-old patient seen for diagnostic evaluation of new right breast cancer. The patient has a history of CHEK2 mutation, right invasive ductal carcinoma (2013) status post right mastectomy, left invasive mammary carcinoma (2019) status post mastectomy. Evaluate for treatment planning. COMPARISON STUDIES: The present examination has been compared to prior imaging studies dated 06/26/2019 (mammogram), 06/26/2019, 05/14/2024 (ultrasound) and 05/21/2024. BREAST MRI: TECHNIQUE: The patient was studied using the dedicated breast coil in the Siemens 1.5 Aleida scanner. Initial axial T1W NFS, STIR imaging was carried out followed by axial T1-weighted GRE imaging both before and after IV administration of 12 ml of Dotarem. Subsequently, subtraction imaging and 3-D reconstruction were completed on an independent workstation. An additional [id number] resolution sequence was performed after the first two 1 minute post-contrast sequences. Complex volumetric analysis requiring post processing was performed using a semi-automated software Dynacad, on an independent workstation by the physician, with images created, reviewed, and archived. FINDINGS: The breasts are almost entirely fat. There is minimal background parenchymal enhancement. The background parenchymal enhancement is symmetrical. There are bilateral retro-pectoral silicone implants, which may obscure the breast parenchyma, limiting visualization. The implants appear smooth in contour. Silicone specific sequences were not obtained, limited evaluation for implant integrity. There is no apparent dayana-implant effusion or evidence of rupture or leak. RIGHT BREAST: Postoperative findings of mastectomy with implant reconstruction. At the site of the biopsy-proven malignancy within the upper inner reconstructed breast, there is a 0.7 x 0.7 x 1.1 cm irregular enhancing mass with susceptibility artifact related to the Alida Coater Operator Insulation Board reflector (SE 74018, IM 141 and SE 100, IM 132). There is 1.3 x 0.6 cm oval enhancing mass with mild T2 hyperintensity the upper outer aspect of the implant (SE 51796, IM 126), posterior depth. This demonstrates washout enhancement kinetics. No additional suspicious enhancing masses or areas of non-mass enhancement. There is no abnormal enhancement within the nipple or chest wall. LEFT BREAST: Postoperative findings of mastectomy with implant reconstruction. There are no suspicious enhancing masses or areas of non-mass enhancement. LYMPH NODES: No axillary or internal mammary lymphadenopathy bilaterally. IMPRESSION: Known malignancy within the upper inner reconstructed right breast measuring 1.1 cm with associated artifact from Alida Coater Operator Insulation Board reflector. Surgical consultation is recommended. Oval enhancing mass along the upper outer aspect of the right breast implant, posterior depth, measuring 1.3 x 0.6 cm. While differential diagnosis includes an intramammary lymph node, second look ultrasound is recommended for further evaluation. If there is no sonographic correlate, surgical consultation would be recommended as this finding is not amenable to MRI-guided biopsy. A breast imaging nurse navigator will contact the patient to assist in scheduling second look ultrasound. BI-RADS Category 0: Incomplete: Needs Additional Imaging Evaluation Interpreting Radiologist: Ariana Schmid M.D. Resident/Fellow: Leticia Cheung D.O. Electronically signed on: 06/04/2024 Outpatient Clerk: MYLES Reynoldsrijem Date/Time: Jun 01 2024 8:36A Dictated by : LETICIA CHEUNG, DO This examination was interpreted and the report reviewed and electronically signed by: ARIANA SCHMID MD on Jun 04 2024 4:05PM EST [id number] [facility] OVSP Visit (SP) Office (STACIE) CARA SINGH ([id number]) 1975 F Date Time Provider Department 05/31/24 10:10 AM JAY FAUST During your visit today, we recorded the following information about you: Temperature Pulse Blood pressure Weight 98.9 degrees 89/minute 172/78 66.2 kg Height 1.665 m Jay Faust, 06/01/2024 5:14 PM Signed Oncologic problem(s): 1) Recurrent breast cancer. HPI: The patient is a 49 yo female who was diagnosed with a stage I (pT1a, N0) right breast cancer in 2013 following an abnormality found on her initial screening mammogram. Underwent a right-sided mastectomy along with sentinel lymph node biopsy on 06/20/2013. Pathology: A) SENTINEL LYMPH NODE #1, EXCISION: - One lymph node, negative for carcinoma (0/1). B) SENTINEL LYMPH NODE #2, EXCISION: - One lymph node, negative for carcinoma (0/1). C) SENTINEL LYMPH NODE #3, EXCISION: - One lymph node, negative for carcinoma (0/1). D) DISTAL TISSUE UNDER NIPPLE, RIGHT BREAST, EXCISION: - Negative for carcinoma. E) RIGHT BREAST, NIPPLE SPARING MASTECTOMY: - Invasive ductal carcinoma. - Ductal carcinoma in situ, nuclear grade 2, solid and cribriform types. - Changes consistent with prior biopsy site. - Surgical margins of resection are negative for carcinoma or carcinoma in situ. - See comment. COMMENT An immunohistochemical stain for p63 is negative in the focus of invasive carcinoma supporting the above diagnosis. BREAST (INVASIVE CARCINOMA) SYNOPTIC REPORT PROCEDURE: Total mastectomy (nipple sparing) LYMPH NODE SAMPLING: Gilson lymph nodes SPECIMEN LATERALITY: Right HISTOLOGIC TYPE OF INVASIVE CARCINOMA: Invasive ductal carcinoma TUMOR SIZE (GREATEST DIMENSION OF LARGEST FOCUS OF INVASION GREATER THAN 1 MM): 1.1 mm LIBERTY HISTOLOGIC GRADE: Grade 1 - GLANDULAR/TUBULAR DIFFERENTIATION: Score 1 - NUCLEAR PLEOMORPHISM: Score 2 - MITOTIC RATE: Score 2 TUMOR FOCALITY: Single focus of invasive carcinoma DUCTAL CARCINOMA IN SITU (DCIS): Present MACROSCOPIC/MICROSCOPI C EXTENT OF TUMOR: - Skin: Uninvolved by invasive carcinoma or carcinoma in situ MARGINS: Margins uninvolved by invasive carcinoma - - Distance of invasive carcinoma from closest margin: 9 mm from the anterior radial margin MARGINS: Margins uninvolved by DCIS - - Distance of DCIS from closest margin: 6 mm from the anterior radial margin LYMPH NODES: - Number of sentinel lymph nodes examined: 3 - Total number of lymph nodes examined (sentinel and non-sentinel): 3 - - Number of lymph nodes with macrometastasis: 0 - - Number of lymph nodes with micrometastasis: 0 - - Number of lymph nodes with isolated tumor cells: 0 LYMPH VASCULAR INVASION: Not identified PATHOLOGIC STAGING: pT1a pN0 (sn) pM - Not applicable ANCILLARY STUDIES: Previously performed, please see separate report [id number] for additional details. - Estrogen Receptors: Positive, greater than 95%; stain intensity is strong - Progesterone Receptors: Positive, 80%; stain intensity is moderate - HER2 (FISH): Not amplified She has bilateral implants. Her left implant was placed in November 2013 for symmetry and augmentation. She began tamoxifen on July 23, 2013. Stopped 05/2015 due to significant hot flashes and mood swings. OB found lump in left breast. Mammogram and US ?suggested cyst. Was referred to Dr. Garza US left breast : No prior exams were available for comparison. Ultrasound of the left breast 2 o'clock, and axilla regions was performed. Grady scale images of the real-time examination were reviewed. There is 0.9 cm x 0.6 cm x 0.9 cm lobulated mass with an indistinct margin in the left breast at 2 o'clock middle depth 5 cm from the nipple. This lobulated mass is hypoechoic. This correlates as palpated. IMPRESSION: SUSPICIOUS FINDING - BIOPSY SHOULD BE CONSIDERED The 0.9 cm x 0.6 cm x 0.9 cm lobulated mass in the left breast has a differential diagnosis of a solid mass or fat necrosis and is suspicious of malignancy. An ultrasound guided biopsy is recommended. Pathology: CORE BIOPSY OF LEFT BREAST (2 O'CLOCK, 5 CM FROM NIPPLE) - INVASIVE WELL DIFFERENTIATED MAMMARY CARCINOMA. COMMENT: The tumor has the architectural features of a lobular carcinoma with absence of tubule formation (tubule score =3) and a single file pattern of infiltration. There is grade 1 nuclear atypia and mitoses are not identified (mitotic score = 1) for a total Liberty score of 5 corresponding to a grade 1 tumor. No in situ component is identified. No vascular invasion is found to be present. Despite having the typical histologic features of invasive lobular carcinoma, an E-cadherin immunostain reveals the tumor cells to be strongly positive. This suggests that the tumor may have mixed ductal and lobular features. A cytokeratin immunostain was perf (more content not included)... Normal [facility] CNPNon 05-24-2024 CNPN Telephone (HEMAWS) CARA SINGH ([id number]) 1975 F Date Time Provider Department 05/24/24 LEW SABA During your visit today, we recorded the following information about you: aMkayla Rai 05/24/2024 1:40 PM Signed Patient called stating that Dr. Corona from [place] was referring her to [facility]. No order/referral. Please review and advise. Carol Ann Drake LPN 05/24/2024 2:07 PM Signed DX: Invasive mammary carcinoma Referring: Dr. Adam Corona H/O breast cancer. Has seen Dr. Faust in the past- last OV 10/08/2019. PSS- please schedule patient with Dr. Faust in a new patient slot. RAJIV Scott Angela 05/24/2024 3:09 PM Signed Spoke with patient and scheduled for 05/31 at 10:10. Patient stated she has a MRI on 06/01 so is questioning if she should wait till after the MRI to schedule. Please advise Jay Elizabeth DO 05/24/2024 3:30 PM Signed Okay to keep the appointment on 05/31. Pamela Slater 05/24/2024 3:38 PM Signed Spoke with patient and advised to keep appointment Pamela Slater Allergies As of Date: 05/24/2024 (No Known Allergies) Date Reviewed: 05/04/2024 Reviewed by: Radha Christianson PA-C - Fully Assessed Reason for Visit: New Patient [172] Prescriptions as of 05/24/2024 - iv contrast (will be provided with radiology test) MRI Breast DANE Inject, intravenously, once for 1 dose. No IV access, insert saline lock prior to the beginning of sedation, infusion, injection of imaging exam. Discontinue saline lock post exam. If Pt has a central line or IVAD, may access for administration according to line specific nursing protocol. Once exam is complete flush line and de-access according to line specific nursing protocol in the MR contrast administration guidelines link - Lactobacillus acidophilus (PROBIOTIC) 10 billion cell cap Take by mouth once daily. [employer]atur[employer] - L.acid/B.animalis,bifi dum/FOS (PROBIOTIC COMPLEX ORAL) Take by mouth once daily. [employer] Naturals 90 billion cells - tamoxifen (NOLVADEX) 20 mg tablet Take 1 tablet (20 mg) by mouth once daily. - losartan (COZAAR) 25 mg tablet Take 25 mg by mouth once daily. - OREGANO OIL ORAL Take by mouth. Intermittently for sinus congestion - albuterol HFA (PROAIR HFA) 90 mcg/actuation inhaler inhale 1 puff by mouth every 4 hours as needed for wheezing/shortnessof breath. as directed - fluticasone (FLONASE) 50 mcg/actuation nasal spray Use 1 [place] in each nostril daily at bedtime. Meds Comments as of 06/21/2013: a Problem List As Of Date 05/24/2024 Noted Resolved ASCUS favor dysplasia [R87.611] 06/23/2006 05/07/2010 URINARY CALCULUS NOS [N20.9] Moderate dysplasia of cervix [N87.1] 05/14/2010 Personal history of cervical dysplasia [Z87.410]05/07/2010 IUD (intrauterine device) in place [Z97.5] 05/14/2010 07/06/2012 PMS (premenstrual syndrome) [N94.3] 07/06/2012 Personal history of breast cancer [Z85.3] 07/09/2013 Status post right mastectomy [Z90.11] 07/16/2013 ER+ (estrogen receptor positive status) [Z17.0] 07/16/2013 Use of tamoxifen (Nolvadex) [Z79.810] 07/16/2013 Status post bilateral breast implants [Z98.82] 02/28/2014 Malignant neoplasm of upper-outer quadrant of r*03/22/2015 BRCA negative [Z13.71] 05/29/2013 Carcinoma of left breast in female, estrogen re*06/2019 Carcinoma of upper-outer quadrant of left breas*06/2019 Essential hypertension [I10] 07/09/2019 PONV (postoperative nausea and vomiting) [R11.2*07/19/2019 Encounter Status:Closed by PAMELA SLATER on 05/24/24 [facility] CNPDiann 05-23-2024 CNPN Telephone (GENSF) CARA SINGH ([id number]) 1975 F Date Time Provider Department 05/23/24 CATHERINE ARRINGTON During your visit today, we recorded the following information about you: Catherine Arrington RN 05/23/2024 1:59 PM Signed Attempted to reach patient for Newly Diagnosed call. Message left requesting return call. Contact information provided. Catherine Arrington, Jillian Jonas RN 05/24/2024 10:56 AM Signed BREAST HEALTH NURSE EDUCATION FOR BREAST CANCER PATIENT Cara Singh was contacted regarding recent breast cancer diagnosis and multi-disciplinary consult appts. READINESS TO LEARN Cognitive ability: Alert and oriented Motivation to learn: Interested - wants to learn Family support: unable to assess at this time Instruction provided to: Patient Patient learns best by: Written instruction - handouts Verbal instruction Barriers to learning: None We discussed the appts and that the following information will be given to her at that time: Breast Health Nurses information sheet (contact information and nurse's role in care),LBBC booklet for newly diagnosed, dredge worker brochure, support resources and breastcancer.org Guide to the Breast Cancer Pathology Report. Marybeth declines to schedule an appt with radiation oncology at this time. I left a VM with the number she is to call to schedule with medical oncologist Dr. Faust in [place]. She followed with Dr. aFust for her initial breast cancer diagnosis. Teach Back education provided. The patient verbalized understanding that the role of the Breast Health Nurse is to continue to reinforce education, provide support and assist in navigating patient care. Jillian Camara RN Allergies As of Date: 05/23/2024 (No Known Allergies) Date Reviewed: 05/04/2024 Reviewed by: Radha Christianson PA-C - Fully Assessed Reason for Visit: Newly Diagnosed [500] Prescriptions as of 05/24/2024 - iv contrast (will be provided with radiology test) MRI Breast DANE Inject, intravenously, once for 1 dose. No IV access, insert saline lock prior to the beginning of sedation, infusion, injection of imaging exam. Discontinue saline lock post exam. If Pt has a central line or IVAD, may access for administration according to line specific nursing protocol. Once exam is complete flush line and de-access according to line specific nursing protocol in the MR contrast administration guidelines link - Lactobacillus acidophilus (PROBIOTIC) 10 billion cell cap Take by mouth once daily. [employer] - L.acid/B.animalis,bifi dum/FOS (PROBIOTIC COMPLEX ORAL) Take by mouth once daily. [employer]zy 90 billion cells - tamoxifen (NOLVADEX) 20 mg tablet Take 1 tablet (20 mg) by mouth once daily. - losartan (COZAAR) 25 mg tablet Take 25 mg by mouth once daily. - OREGANO OIL ORAL Take by mouth. Intermittently for sinus congestion - albuterol HFA (PROAIR HFA) 90 mcg/actuation inhaler inhale 1 puff by mouth every 4 hours as needed for wheezing/shortnessof breath. as directed - fluticasone (FLONASE) 50 mcg/actuation nasal spray Use 1 [place] in each nostril daily at bedtime. Meds Comments as of 06/21/2013: a Problem List As Of Date 05/23/2024 Noted Resolved ASCUS favor dysplasia [R87.611] 06/23/2006 05/07/2010 URINARY CALCULUS NOS [N20.9] Moderate dysplasia of cervix [N87.1] 05/14/2010 Personal history of cervical dysplasia [Z87.410]05/07/2010 IUD (intrauterine device) in place [Z97.5] 05/14/2010 07/06/2012 PMS (premenstrual syndrome) [N94.3] 07/06/2012 Personal history of breast cancer [Z85.3] 07/09/2013 Status post right mastectomy [Z90.11] 07/16/2013 ER+ (estrogen receptor positive status) [Z17.0] 07/16/2013 Use of tamoxifen (Nolvadex) [Z79.810] 07/16/2013 Status post bilateral breast implants [Z98.82] 02/28/2014 Malignant neoplasm of upper-outer quadrant of r*03/22/2015 BRCA negative [Z13.71] 05/29/2013 Carcinoma of left breast in female, estrogen re*06/2019 Carcinoma of upper-outer quadrant of left breas*06/2019 Essential hypertension [I10] 07/09/2019 PONV (postoperative nausea and vomiting) [R11.2*07/19/2019 Encounter Status:Closed by CATHERINE ARRINGTON on 05/23/24 [facility] CNPN Telephone (RADMN) CARA SINGH ([id number]) 1975 F Date Time Provider Department 05/23/24 FRANCIA SONG RADMN During your visit today, we recorded the following information about you: Allergies As of Date: 05/23/2024 (No Known Allergies) Date Reviewed: 05/04/2024 Reviewed by: Radha Christianson PA-C - Fully Assessed Reason for Visit: Results [95] Appointment [186] Prescriptions as of 05/23/2024 - Lactobacillus acidophilus (PROBIOTIC) 10 billion cell cap Take by mouth once daily. [place] [employer] - L.acid/B.animalis,bifi dum/FOS (PROBIOTIC COMPLEX ORAL) Take by mouth once daily. [employer] 90 billion cells - tamoxifen (NOLVADEX) 20 mg tablet Take 1 tablet (20 mg) by mouth once daily. - losartan (COZAAR) 25 mg tablet Take 25 mg by mouth once daily. - OREGANO OIL ORAL Take by mouth. Intermittently for sinus congestion - albuterol HFA (PROAIR HFA) 90 mcg/actuation inhaler inhale 1 puff by mouth every 4 hours as needed for wheezing/shortnessof breath. as directed - fluticasone (FLONASE) 50 mcg/actuation nasal spray Use 1 [place] in each nostril daily at bedtime. Meds Comments as of 06/21/2013: a Problem List As Of Date 05/23/2024 Noted Resolved ASCUS favor dysplasia [R87.611] 06/23/2006 05/07/2010 URINARY CALCULUS NOS [N20.9] Moderate dysplasia of cervix [N87.1] 05/14/2010 Personal history of cervical dysplasia [Z87.410]05/07/2010 IUD (intrauterine device) in place [Z97.5] 05/14/2010 07/06/2012 PMS (premenstrual syndrome) [N94.3] 07/06/2012 Personal history of breast cancer [Z85.3] 07/09/2013 Status post right mastectomy [Z90.11] 07/16/2013 ER+ (estrogen receptor positive status) [Z17.0] 07/16/2013 Use of tamoxifen (Nolvadex) [Z79.810] 07/16/2013 Status post bilateral breast implants [Z98.82] 02/28/2014 Malignant neoplasm of upper-outer quadrant of r*03/22/2015 BRCA negative [Z13.71] 05/29/2013 Carcinoma of left breast in female, estrogen re*06/2019 Carcinoma of upper-outer quadrant of left breas*06/2019 Essential hypertension [I10] 07/09/2019 PONV (postoperative nausea and vomiting) [R11.2*07/19/2019 Encounter Status:Closed by FRANCIA SONG on 05/23/24 Normal [facility] BREAST MARKERSon 05-21-2024 AP BIOMARKER DISCLAIMER Normal F [facility] Comment on above: Order Comment: Speci men Type: TISSUE SPECIMENOrdering Facility: [facility] Address: [address] [place] [address] Result Comment: Laboratory Developed Test (LDT) Disclaimer: Performance characteristics of immunohistochemical, immunofluorescent and chromogenic in-situ hybridization tests have been determined by the performing laboratory within [facility]???s [facility] Pathology and Laboratory Medicine Department ([facility], [facility], [facility], [facility], [facility], [facility], or [facility]) in a manner consistent with CLIA requirements. One or more of these tests have not been cleared or approved by the FDA. RT[facility] is regulated under CLIA as qualified to perform high-complexity testing. These tests are used for clinical purposes. They should not be regarded as investigational or for research. Positive and negative controls stain appropriately. Performed By: #### L [id number] ####[facility] LABCLIA [id number] [place] [address] [place] AP BLOCK ID [id number] [facility] Comment on above: Order Comment: Speci men Type: TISSUE SPECIMENOrdering Facility: [facility] Address: [address] [place] [address] Performed By: #### L [id number] ####[facility] LABCLIA [id number] [place] [address] [place] ASCO/CAP GUIDELINES FOR FIXATION MET Yes [facility] Comment on above: Order Comment: Speci men Type: TISSUE SPECIMENOrdering Facility: [facility] Address: [address] [place] [address] Performed By: #### L [id number] ####[facility] LABCLIA [id number] [place] [address] [place] BIOMARKER INTERPRETATION COMMENT AND REFERENCE RANGE [facility] Comment on above: Order Comment: Speci men Type: TISSUE SPECIMENOrdering Facility: [facility] Address: [address] [place] [address] Result Comment: Refe rence Range for Hormone Receptors: Staining for AK of greater than or equal to 1% of the tumor cells is considered positive. Staining for ER of 1-10% of the tumor cells is considered low positive. Staining for ER of greater than 10% of the tumor cells is considered positive. Staining for ER or AK of less than 1% is considered negative. Reference Ranges for HER2 Immunohistochemistry: Positive (3+): Complete, intense circumferential membrane staining in greater than 10% of tumor cells. Equivocal (2+): Weak to moderate complete membrane staining observed in greater than 10% of tumor cells. Negative (1+): Incomplete, faint membrane staining in greater than 10% of tumor cells. Negative (0): No staining or incomplete faint membrane staining in less than or equal to 10% of tumor cells. Interpretation Comments: Consideration of follow-up testing for HER2 (ERBB2) status by fluorescence in situ hybridization (FISH) for all equivocal (2+) results is recommended and will be ordered as a reflex test if FISH was not a testing methodology already employed. Note for ER low results. For malignancy with a low level (1%-10%) of ER expression by immunohistochemistry, there are limited data on the overall benefit of endocrine therapies for a patient with low level (1%-10%) ER expression, but they currently suggest possible benefits, so patients are considered eligible for endocrine treatment. Some data indicate that invasive cancers with these results are heterogeneous in behavior and biology and often have gene expression profiles more similar to ER-negative cancers. Performed By: #### L [id number] ####[facility] LABCLIA [id number] [place] [address] [place] BIOMARKER METHOD Normal [facility] [place] Comment on above: Order Comment: Speci men Type: TISSUE SPECIMENOrdering Facility: [facility] Address: [address] [place] [address] Result Comment: Estr ogen Receptor: Food and Drug Administration (FDA) cleared: [employer], [place], [place] Primary Antibody: SP1 Progesterone Receptor: FDA cleared: [employer], [place], [place] Primary Antibody: IE2 HER2 (ERBB2) by IHC: FDA cleared: [email or web address], [place], [place] Primary Antibody:4B5 The hormone receptor tests were performed and reported in accordance with the guidelines approved by the [place] Society [employer] Clinical Oncologists and the College of [place] Pathologists. Gabrielle FAIR, et al. Estrogen and Progesterone Receptor Testing in Breast Cancer: [place] Society [employer] Clinical Oncologists and the College of [place] Pathologists Guideline Update. Arch Pathol Lab Med. 2020 May;144(5):545563. PMID: [id number]. The hormone receptor assays have been internally validated on decalcified tissues (for [facility] only). Estrogen and progesterone receptor results are valid if tissue was processed according to ASCO/CAP guidelines. Antibody and Detection System: [employer] anti-HER2 rabbit monoclonal antibody (clone [id number]), [employer] Confirm anti-estrogen receptor rabbit monoclonal antibody (clone SP1) and [employer] anti-progesterone receptor rabbit monoclonal antibody (clone IE2) detected with the [employer] UltraView Univeral DAB Detection Kit (indirect biotin-free detection), [employer], [place], [place]. Control Slides: Cell line controls with high, equivocal, low, and negative HER2 protein expression, along with known positive control tissue and the patient's tissue, are evaluated for HER2 expression. The HER2 immunohistochemistry assay was developed, validated, scored, and reported in accordance with the guidelines approved by the [place] Society [employer] Clinical Oncologists and the College of [place] Pathologists. Suzan TRUJILLO et al. Arch Pathol Lab Med. 2018;1379(9) The HER2 assay has not been validated on decalcified tissues. Given the possibility of false negative results on decalcified specimens, results should be interpreted with caution. Performed By: #### L [id number] ####[facility] LABIA [id number] [place] [address] [place] BREAST TUMOR GRADE Grade 2 [facility] Comment on above: Order Comment: Speci men Type: TISSUE SPECIMENOrdering Facility: [facility] Address: [address] [place] [address] Performed By: #### L [id number] ####[facility] LABCLIA [id number] [address] OF [place] [facility] CASE NUMBER INVASIVE [id number] [facility] Comment on above: Order Comment: Speci men Type: TISSUE SPECIMENOrdering Facility: [facility] Address: [address] [place] [address] Performed By: #### L [id number] ####[facility] LABCLIA [id number] [place] [address] [place] COLD ISCHEMIA TIME <1 Hour Normal [facility] Comment on above: Order Comment: Speci men Type: TISSUE SPECIMENOrdering Facility: [facility] Address: [address] [place], [place] [address] Performed By: #### L [id number] ####[facility] LABCLIA [id number] [place] [address] [place] ESTROGEN RECEPTOR (% TUMOR STAINING) >90 Normal [facility] [place] Comment on above: Order Comment: Speci men Type: TISSUE SPECIMENOrdering Facility: [facility] Address: [address] [place] [address] Performed By: #### L [id number] ####[facility] LABCLIA [id number] [place] [address] [place] ESTROGEN RECEPTOR (STAINING INTENSITY) Strong Normal [facility] [place] Comment on above: Order Comment: Speci men Type: TISSUE SPECIMENOrdering Facility: [facility] Address: [address] [place] [address] Performed By: #### L [id number] ####[facility] LABCLIA [id number] [place] [address] [place] ESTROGEN RECEPTOR EXTERNAL CONTROL Present and Stained as Expected [facility] Comment on above: Order Comment: Speci men Type: TISSUE SPECIMENOrdering Facility: [facility] [facility] Address: [address] [place] [address] Performed By: #### L [id number] ####[facility] LABCLIA [id number] [place] [address] [place] ESTROGEN RECEPTOR INTERNAL CONTROL Present and Stained as Expected Normal [facility] [place] Comment on above: Order Comment: Speci men Type: TISSUE SPECIMENOrdering Facility: [facility] Address: [address] [place], [place] [id number] Performed By: #### L [id number] ####[facility] LABCLIA [id number] [place] [address] [place] ESTROGEN RECEPTOR STATUS (INVASIVE) Positive [facility] Comment on above: Order Comment: Speci men Type: TISSUE SPECIMENOrdering Facility: [facility] Address: [address] [place] [address] Performed By: #### L [id number] ####[facility] LABCLIA [id number] [place] [address] [place] FIXATIVE Formalin, 10% Neutra l Buffered [facility] Comment on above: Order Comment: Speci men Type: TISSUE SPECIMENOrdering Facility: [facility] Address: [address] [place] [address] Performed By: #### L [id number] ####[facility] LABCLIA [id number] [place] [address] [place] HER2 SCORE 1+ [facility] Comment on above: Order Comment: Speci men Type: TISSUE SPECIMENOrdering Facility: [facility] Address: [address] [place] [address] Performed By: #### L [id number] ####[facility] LABCLIA [id number] [place] [address] [place] HER2 STATUS (INVASIVE) Negative [facility] Comment on above: Order Comment: Speci men Type: TISSUE SPECIMENOrdering Facility: [facility] Address: [address] [place] [address] Performed By: #### L [id number] ####[facility] LABCLIA [id number] [place] [address] [place] PROGESTERONE RECEPTOR (% TUMOR STAINING) 50 [facility] Comment on above: Order Comment: Speci men Type: TISSUE SPECIMENOrdering Facility: [facility] Address: [address] [place] [address] Performed By: #### L [id number] ####[facility] LABCLIA [id number] [place] [address] [place] PROGESTERONE RECEPTOR (STAINING INTENSITY) Moderate [facility] Comment on above: Order Comment: Speci men Type: TISSUE SPECIMENOrdering Facility: [facility] Address: [address] [place] [address] Performed By: #### L [id number] ####[facility] LABCLIA [id number] [address] [place] PROGESTERONE RECEPTOR EXTERNAL CONTROL Present and Stained as Expected Normal [facility] [place] Comment on above: Order Comment: Speci men Type: TISSUE SPECIMENOrdering Facility: [facility] Address: [address] [place] [address] Performed By: #### L [id number] ####[facility] LABCLIA [id number] [address] [place] PROGESTERONE RECEPTOR INTERNAL CONTROL Present and Stained as Expected Normal [facility] [place] Comment on above: Order Comment: Speci men Type: TISSUE SPECIMENOrdering Facility: [facility] Address: [address] [place] [address] Performed By: #### L [id number] ####[facility] LABCLIA [id number] [place] [address] [place] PROGESTERONE RECEPTOR STATUS (INVASIVE) Positive Normal [facility] [place] Comment on above: Order Comment: Speci men Type: TISSUE SPECIMENOrdering Facility: [facility] Address: [address] [place] [address] Performed By: #### L [id number] ####[facility] LABCLIA [id number] [place] [address] [place] TOTAL FIXATION TIME >6 and <72 Hours Normal [facility] [place] Comment on above: Order Comment: Speci men Type: TISSUE SPECIMENOrdering Facility: [facility] Address: [address] [place] [address] Performed By: #### L [id number] ####[facility] LABCLIA [id number] [place] [address] [place] TUMOR TYPE (INVASIVE) Primary Invasive Breast Carcinoma Normal [facility] Comment on above: Order Comment: Speci men Type: TISSUE SPECIMENOrdering Facility: [facility] Address: [address] [place] [address] Performed By: #### L [id number] ####[facility] LABCLIA [id number] [address] [place] WAS SPECIMEN DECALCIFIED No Normal [facility] [place] Comment on above: Order Comment: Speci men Type: TISSUE SPECIMENOrdering Facility: [facility] Address: [address] [place] [address] Performed By: #### L [id number] ####[facility] LABCLIA [id number] [address] STATES OF [facility] US BIOPSY BREAST RTon [facility] US BIOPSY BREAST RT * * *Final Repor t* * * * * * SEE BOTTOM OF REPORT FOR ADDENDED TEXT * * * DATE OF EXAM: May 21 2024 10:55AM [facility] 0598 - [facility] US BIOPSY BREAST RT / PROCEDURE REASON: Abnormal finding on radiological examination of breast * * * * Physician Interpretation * * * * [facility] [address] [place] [address] - - - - - - - - - - ADDENDED REPORT - - - - - - - - - - 05/26/2024 at 09:55:38 Addendum: FINAL DIAGNOSIS A: Breast, right, 2:00, 8 cmfn, 1.3 cm mass, ultrasound-guided biopsy with zipper setter chainstitch reflector placement: - Invasive mammary carcinoma, provisional Carpenter grade 2, measuring at least 3 mm in greatest dimension. Findings are CONCORDANT with the imaging assessment. These results have been discussed with the patient by Dr. Roldan. Surgical consultation is recommended. The consultation appointment will be facilitated by the breast imaging nurse navigator. Interpreting Radiologist: Philipp Roldan M.D. Electronically signed on: 05/26/2024 - - - - - - - - - - ORIGINAL REPORT - - - - - - - - - - #[id number] - [facility] US BIOPSY BREAST RT HISTORY: 49 year old patient presents for ultrasound guided core biopsy of the following: Site 1: Mass located in the right breast at 2 o'clock, 8 cm from the nipple PATIENT CONSENT: A time out was performed immediately prior to procedure start with the radiology team, correctly identifying the patient name, date of , procedure, anatomy (including marking of site and side), patient position, relevant diagnostic and radiology test results, safety precautions, and procedure-specific equipment needs. The procedure, along with the risks (including, but not limited to, infection and bleeding), benefits, and alternatives, was explained to the patient by the performing physician. The patient agreed to undergo the procedure. Medications and allergies were also reviewed. The radiologist and technologist were present throughout the entire procedure. Correlation is made to exams dated: 05/14/2024 (ultrasound). Site 1: Mass in the right breast at 2 o'clock, 8 cm from the nipple Audible Time Out Time: 1025 Procedure Start Time: 1026 Procedure Stop Time: 1045 An ultrasound-guided biopsy using real-time ultrasound was performed for the concerning mass located in the right breast at 2 o'clock, 8 cm from the nipple. This was described on the previous ultrasound report. The skin was prepped in the usual manner. Local anesthetic was administered. A skin bushra was made. The abnormality was approached from the medial aspect. An 18 and 14 gauge biopsy needle was placed adjacent to the abnormality under ultrasound guidance. Once the needle was documented to be in the correct location, 3 samples were obtained using a spring-loaded biopsy device (2 samples with 18g, 1 sample with 14g). A Alida Coater Operator Insulation Board reflector was then placed under sonographic guidance. A skin closure strip and a sterile dressing were applied to the access site. The specimen was sent to the laboratory for pathological analysis. Reflector placement/activation was verified with Coater Operator Insulation Board Check following the procedure. IMPRESSION: ULTRASOUND GUIDED BIOPSY Site 1: Ultrasound-guided biopsy of the mass located in the right breast at 2 o'clock, 8 cm from the nipple with placement of a Alida Coater Operator Insulation Board reflector. Procedure was successful. Waiting for pathology result. An amendment will be issued to this report when pathology results become available. Reflector placement/activation was verified with Coater Operator Insulation Board Check following the procedure. Interpreting Radiologist: Philipp Roldan M.D. Electronically signed on: 05/21/2024 Outpatient Clerk: MAGVIW Transcribe Date/Time: May 21 2024 10:07A Dictated by : PHILIPP ROLDAN MD This examination was interpreted and the report reviewed and electronically signed by: PHILIPP ROLDAN MD on May 21 2024 10:59AM EST This document has been addended by: PHILIPP ROLDAN MD on May 26 2024 9:55AM EST [id number] [facility] SURGICAL PATHOLOGYon 025 ADDENDUM 1: [facility] Comment on above: Order Comment: Speci men Type: TISSUE SPECIMENOrdering Facility: [facility] Address: [address] [place] [address] Result Comment: This addendum is to report results of immunohistochemical studies with no changes in the final interpretation. Immunohistochemical studies confirm the carcinoma cells display predominantly intact membranous expression of E-cadherin and [id number], supporting ductal phenotype. Addendum electronically signed by Amanda Logan MD on 05/24/2024 at 11:40 AM Performed By: #### S ####[facility] LABIA [id number] [place] [address] [place] CASE REPORT [facility] Comment on above: Order Comment: Speci men Type: TISSUE SPECIMENOrdering Facility: [facility] Address: [address] [place] [address] Result Comment: Surg [facility] Pathology Report Case: [id number] Authorizing Provider: Philipp Roldan MD Collected: 05/21/2024 10:18 AM Ordering Location: Mammography Received: 05/21/2024 01:55 PM Pathologist: Amanda Logan MD Specimen: Breast, Right, Core Biopsy, 2:00 8 cmfn, right breast ultrasound guided core biopsy, 1.3 cm mass, zipper setter chainstitch reflector placed Performed By: #### S ####[facility] LABIA [id number] [place] [address] [place] DIAGNOSIS COMMENT [facility] Comment on above: Order Comment: Speci men Type: TISSUE SPECIMENOrdering Facility: [facility] Address: [address] [place] [address] Result Comment: Kathie st biomarker studies have been requested and results will be reported separately in a linked report. This case was reviewed intradepartmentally with Dr. Alexis Lopez, of the [facility] breast pathology service, with diagnostic concordance. Markers for lobular differentiation (E-cadherin and [id number]) have been requested and results will be reported in an addendum. Laboratory Developed Test (LDT) Disclaimer: Performance characteristics of immunohistochemical, immunofluorescent and chromogenic in-situ hybridization tests have been determined by the performing laboratory within [facility]???s [facility] Pathology and Laboratory Medicine Department ([facility], [facility], [facility], [facility], [facility], [facility], or [facility]) in a manner consistent with CLIA requirements. One or more of these tests have not been cleared or approved by the FDA. [facility] is regulated under CLIA as qualified to perform high-complexity testing. These tests are used for clinical purposes. They should not be regarded as investigational or for research. Positive and negative controls stain appropriately. Performed By: #### S ####[facility] LABCLIA [id number] [address] FINAL DIAGNOSIS [facility] Comment on above: Order Comment: Speci men Type: TISSUE SPECIMENOrdering Facility: [facility] Address: [address] [place] [address] Result Comment: A: B reast, right, 2:00, 8 cmfn, 1.3 cm mass, ultrasound-guided biopsy with zipper setter chainstitch reflector placement: - Invasive mammary carcinoma, provisional Carpenter grade 2, measuring at least 3 mm in greatest dimension. Performed By: #### S ####[facility] LABCLIA [id number] [address] FINAL PERFORMING LAB Normal [facility] Comment on above: Order Comment: Speci men Type: TISSUE SPECIMENOrdering Facility: [facility] Address: [address] [place] [address] Result Comment: Diag nostic interpretation performed at: [facility], [address] [place] [address] CLIA# [id number] Public Policy Associate: Charles Maya MD Performed By: #### S ####[facility] LABCLIA [id number] [place] [address] [place] Result Comment: Diag nostic interpretation performed at: [facility], [address] [place] [address] CLIA# [id number] Public Policy Associate: Charles Maya MD Electronically signed out by: Amanda Logan MD Performed By: #### L [id number] ####[facility] [id number] [address] [place] DESCRIPTION Normal [facility] Comment on above: Order Comment: Speci men Type: TISSUE SPECIMENOrdering Facility: [facility] Address: [address] [place] [address] Result Comment: A. B reast, Right, Core Biopsy Received in formalin labeled as right breast are multiple segments of cylindrical tissue aggregating to 1.2 x 0.3 x 0.2 cm, yellow-brown and of a soft consistency. The specimen was removed from the patient at 10:18 AM on 05/21/2024. On the same day, the specimen was placed in formalin at 10:40 AM. Totally submitted in formalin in one cassette. Gross examination performed at [address] May 21, 2024 6:17 PM Performed By: #### S ####[facility] LABIA [id number] [place] [address] [place] US Guidance for biopsy of Br east - righton 05-21-2024 IMPRESSION: ULTRASOU [place] GUIDED BIOPSY Site 1: Ultrasound-guided biopsy of the mass located in the right breast at 2 o'clock, 8 cm from the nipple with placement of a Alida Coater Operator Insulation Board reflector. Procedure was successful. Waiting for pathology result. An amendment will be issued to this report when pathology results become available. Reflector placement/activation was verified with Coater Operator Insulation Board Check following the procedure. Interpreting Radiologist: Philipp Roldan M.D. Electronically signed on: 05/21/2024 Outpatient Clerk: MYLES Reynoldsrijem Date/Time: May 21 2024 10:07A Dictated by : PHILIPP ROLDAN MD This examination was interpreted and the report reviewed and electronically signed by: PHILIPP ROLDAN MD on May 21 2024 10:59AM [facility] * * *Final Report* * * DATE OF EXAM: May 21 2024 10:55AM [facility] 0598 - [facility] US BIOPSY BREAST RT / PROCEDURE REASON: Abnormal finding on radiological examination of breast * * * * Physician Interpretation * * * * [facility] [address] [place] [address] #[id number] - [facility] US BIOPSY BREAST RT HISTORY: 49 year old patient presents for ultrasound guided core biopsy of the following: Site 1: Mass located in the right breast at 2 o'clock, 8 cm from the nipple PATIENT CONSENT: A time out was performed immediately prior to procedure start with the radiology team, correctly identifying the patient name, date of , procedure, anatomy (including marking of site and side), patient position, relevant diagnostic and radiology test results, safety precautions, and procedure-specific equipment needs. The procedure, along with the risks (including, but not limited to, infection and bleeding), benefits, and alternatives, was explained to the patient by the performing physician. The patient agreed to undergo the procedure. Medications and allergies were also reviewed. The radiologist and technologist were present throughout the entire procedure. Correlation is made to exams dated: 05/14/2024 (ultrasound). Site 1: Mass in the right breast at 2 o'clock, 8 cm from the nipple Audible Time Out Time: 1025 Procedure Start Time: 1026 Procedure Stop Time: 1045 An ultrasound-guided biopsy using real-time ultrasound was performed for the concerning mass located in the right breast at 2 o'clock, 8 cm from the nipple. This was described on the previous ultrasound report. The skin was prepped in the usual manner. Local anesthetic was administered. A skin bushra was made. The abnormality was approached from the medial aspect. An 18 and 14 gauge biopsy needle was placed adjacent to the abnormality under ultrasound guidance. Once the needle was documented to be in the correct location, 3 samples were obtained using a spring-loaded biopsy device (2 samples with 18g, 1 sample with 14g). A Alida Coater Operator Insulation Board reflector was then placed under sonographic guidance. A skin closure strip and a sterile dressing were applied to the access site. The specimen was sent to the laboratory for pathological analysis. Reflector placement/activation was verified with Coater Operator Insulation Board Check following the procedure. [facility] Provider, [facility] - 05/21/2024 * * *Final Report* * * DATE OF EXAM: May 21 2024 10:55AM [facility] 0598 - [facility] US BIOPSY BREAST RT / PROCEDURE REASON: Abnormal finding on radiological examination of breast * * * * Physician Interpretation * * * * [facility] [address] [place] [address] #[id number] - [facility] US BIOPSY BREAST RT HISTORY: 49 year old patient presents for ultrasound guided core biopsy of the following: Site 1: Mass located in the right breast at 2 o'clock, 8 cm from the nipple PATIENT CONSENT: A time out was performed immediately prior to procedure start with the radiology team, correctly identifying the patient name, date of , procedure, anatomy (including marking of site and side), patient position, relevant diagnostic and radiology test results, safety precautions, and procedure-specific equipment needs. The procedure, along with the risks (including, but not limited to, infection and bleeding), benefits, and alternatives, was explained to the patient by the performing physician. The patient agreed to undergo the procedure. Medications and allergies were also reviewed. The radiologist and technologist were present throughout the entire procedure. Correlation is made to exams dated: 05/14/2024 (ultrasound). Site 1: Mass in the right breast at 2 o'clock, 8 cm from the nipple Audible Time Out Time: 1025 Procedure Start Time: 1026 Procedure Stop Time: 1045 An ultrasound-guided biopsy using real-time ultrasound was performed for the concerning mass located in the right breast at 2 o'clock, 8 cm from the nipple. This was described on the previous ultrasound report. The skin was prepped in the usual manner. Local anesthetic was administered. A skin bushra was made. The abnormality was approached from the medial aspect. An 18 and 14 gauge biopsy needle was placed adjacent to the abnormality under ultrasound guidance. Once the needle was documented to be in the correct location, 3 samples were obtained using a spring-loaded biopsy device (2 samples with 18g, 1 sample with 14g). A Alida Coater Operator Insulation Board reflector was then placed under sonographic guidance. A skin closure strip and a sterile dressing were applied to the access site. The specimen was sent to the laboratory for pathological analysis. Reflector placement/activation was verified with Coater Operator Insulation Board Check following the procedure. IMPRESSION IMPRESSION: ULTRASOUND GUIDED BIOPSY Site 1: Ultrasound-guided biopsy of the mass located in the right breast at 2 o'clock, 8 cm from the nipple with placement of a Alida Coater Operator Insulation Board reflector. Procedure was successful. Waiting for pathology result. An amendment will be issued to this report when pathology results become available. Reflector placement/activation was verified with Coater Operator Insulation Board Check following the procedure. Interpreting Radiologist: Philipp Roldan M.D. Electronically signed on: 05/21/2024 Outpatient Clerk: MYLES Transcribe Date/Time: May 21 2024 10:07A Dictated by : PHILIPP ROLDAN MD This examination was interpreted and the report reviewed and electronically signed by: PHILIPP ROLDAN MD on May 21 2024 10:59AM EST [facility] Radiology Study observation (narrative) [facility] US Guidance for biopsy of Br east - rightOrdered By: [facility] Provider on 05-21-2024 [facility] US BREAST LTD RTon 05-14 [facility] US BREAST LTD RT * * *Final Report* * * DATE OF EXAM: May 14 2024 3:06PM [facility] 0594 - [facility] PhotoRocket BREAST LTD RT / PROCEDURE REASON: multiple diagnoses * * * * Physician Interpretation * * * * [facility] [address] [place] [address] #[id number] - [facility] US BREAST Giftah RT HISTORY: Patient is 49 years old and is seen for diagnostic evaluation of a palpable abnormality in the right breast. She has history of bilateral breast malignancy and has had bilateral mastectomies. ULTRASOUND TECHNIQUE: Targeted ultrasound of the indicated area was performed. Grady scale images were saved. ULTRASOUND FINDINGS: Targeted ultrasound of the right breast was performed for evaluation of the patient's palpable lump at 2:00 8 cm from the nipple. Corresponding with the palpable, there is an indistinct hypoechoic mass which measures 1.2 x 0.6 x 1.3 cm. No abnormalities are identified in the right axilla. IMPRESSION: 1.2 cm mass with indistinct margins in the right breast at 2:00, which is at moderate suspicion for malignancy. Ultrasound-guided biopsy is recommended. BI-RADS Category 4: Suspicious - Biopsy is recommended Results and recommendations reviewed with the patient. Informed consent was signed in the office today. The patient was provided information to schedule the recommended biopsy appointment. Interpreting Radiologist: Philipp Roldan M.D. Electronically signed on: 05/14/2024 Outpatient Clerk: MYLES Transcribe Date/Time: May 14 2024 2:58P Dictated by : PHILIPP ROLDAN MD This examination was interpreted and the report reviewed and electronically signed by: PHILIPP ROLDAN MD on May 14 2024 3:32PM EST [id number] Normal [facility] [place] US Breast - right limitedon 05-14-2024 IMPRESSION: 1.2 cm mass with indistinct margins in the right breast at 2:00, which is at moderate suspicion for malignancy. Ultrasound-guided biopsy is recommended. BI-RADS Category 4: Suspicious - Biopsy is recommended Results and recommendations reviewed with the patient. Informed consent was signed in the office today. The patient was provided information to schedule the recommended biopsy appointment. Interpreting Radiologist: Philipp Roldan M.D. Electronically signed on: 05/14/2024 Outpatient Clerk: MYLES Transcribe Date/Time: May 14 2024 2:58P Dictated by : PHILIPP ROLDAN MD This examination was interpreted and the report reviewed and electronically signed by: PHILIPP ROLDAN MD on May 14 2024 3:32PM EST [facility] * * *Final Report* * * DATE OF EXAM: May 14 2024 3:06PM [facility] 0594 - [facility] US BREAST LTD RT / PROCEDURE REASON: multiple diagnoses * * * * Physician Interpretation * * * * [facility] [address] [place] [address] #[id number] - [facility] Daily [employer] RT HISTORY: Patient is 49 years old and is seen for diagnostic evaluation of a palpable abnormality in the right breast. She has history of bilateral breast malignancy and has had bilateral mastectomies. ULTRASOUND TECHNIQUE: Targeted ultrasound of the indicated area was performed. Grady scale images were saved. ULTRASOUND FINDINGS: Targeted ultrasound of the right breast was performed for evaluation of the patient's palpable lump at 2:00 8 cm from the nipple. Corresponding with the palpable, there is an indistinct hypoechoic mass which measures 1.2 x 0.6 x 1.3 cm. No abnormalities are identified in the right axilla. [facility] * * *Final Report* * * DATE OF EXAM: May 14 2024 3:06PM [facility] [id number] - [facility] Daily [employer] RT / PROCEDURE REASON: multiple diagnoses * * * * Physician Interpretation * * * * [facility] [address] [place] [address] #[id number] - [facility] [employer] RT HISTORY: Patient is 49 years old and is seen for diagnostic evaluation of a palpable abnormality in the right breast. She has history of bilateral breast malignancy and has had bilateral mastectomies. ULTRASOUND TECHNIQUE: Targeted ultrasound of the indicated area was performed. Grady scale images were saved. ULTRASOUND FINDINGS: Targeted ultrasound of the right breast was performed for evaluation of the patient's palpable lump at 2:00 8 cm from the nipple. Corresponding with the palpable, there is an indistinct hypoechoic mass which measures 1.2 x 0.6 x 1.3 cm. No abnormalities are identified in the right axilla. IMPRESSION IMPRESSION: 1.2 cm mass with indistinct margins in the right breast at 2:00, which is at moderate suspicion for malignancy. Ultrasound-guided biopsy is recommended. BI-RADS Category 4: Suspicious - Biopsy is recommended Results and recommendations reviewed with the patient. Informed consent was signed in the office today. The patient was provided information to schedule the recommended biopsy appointment. Interpreting Radiologist: Lovely Anneally signed on: 05/14/2024 Outpatient Clerk: MYLES Transcribe Date/Time: May 14 2024 2:58P Dictated by : PHILIPP ROLDAN MD This examination was interpreted and the report reviewed and electronically signed by: PHILIPP ROLDAN MD on May 14 2024 3:32PM EST [facility] Radiology Study observation (narrative) [facility] US Breast - right limitedOrd ered By: [facility]cf Provider on 05-14-2024 [facility] CNOVon 05-04-2024 CNOV Office Visit (GENSF) CARA SINGH ([id number]) 1975 F Date Time Provider Department 05/04/24 11:00 AM RADHA CHRISTIANSON During your visit today, we recorded the following information about you: Temperature Pulse Blood pressure Weight 98.4 degrees 93/minute 170/81 66.7 kg Last Period 05/01/24 Radha Christianson PA-C 05/04/2024 11:48 AM Signed MEDICAL BREAST PATIENT NAME: Cara Singh HISTORY of PRESENT ILLNESS: Cara Singh is a 49 year old premenopausal woman ([place], near [place]) who presents to the [facility] today for evaluation of a possible lump in her RIGHT upper inner reconstructed breast/sternal region. She noted this palpable area approximately one week ago and denies any other associated symptoms. The patient denies any chest wall masses or skin change bilaterally. She was most recently seen in the breast center by Marilynn in 09/2023. In 2013, she had Stage l (pT1a N0) right invasive ductal carcinoma. 03/2013 screening mammogram was abnormal for which subsequent right diagnostic imaging revealed a cluster of calcifications in the UOQ near the nipple. 04/2013 right mammotome biopsy revealed Grade 2 IDC, ER+(>95%)/AK+(80%)/HER 2-. 04/2013 breast MRI revealed bilateral enlarged axillary LNs. 06/2013 right nipple-sparing mastectomy/SLNB and TE placement by Drs. Garza/Brodie revealed Grade 2 IDC, 1.1 mm. Margins were negative (closest 9 mm). 0/3 SLN were involved. No LVI. She took tamoxifen for 2 years but stopped in 05/2015 due to significant hot flashes and mood swings. 11/2013 she had a right TE exchange for permanent smooth round silicone retropectoral implant and left breast augmentation with smooth round silicone retropectoral implant, and 06/2014 she had right reconstructed breast revision and an implant exchange bilaterally by Dr. Chirinos. In 2019, she had Stage 1 (pT1b N0 M0) left invasive mammary carcinoma in the upper outer quadrant of breast. At OSH she had an abnormal screening mammogram in 04/2019 for which left US revealed a 9 mm lobulated mass at 2:00, 5 cmfn. 06/2019 left ultrasound guided core biopsy at OSH showed Grade 1 Invasive mammary carcinoma with ductal and lobular features, ER+(90%)/AK+(80%)/HER2 -. 07/2019 left nipple sparing mastectomy/SLNB and TE placement with removal of implant by Drs. Garza/Brodie showed an 8 mm Grade 1 Invasive mammary carcinoma with lobular morphology. 0/3 SLNB were involved. Margins were negative (closest 4 mm). No LVI. 10/2019 she had a TE exchange for a permanent smooth round silicone retropectoral implant by Dr. Chirinos. Oncotype RS was 14 corresponding to a 4% risk of distant recurrence at 10 years; thus chemotherapy was not recommended. She started Tamoxifen in 07/2019 and then stopped it in early 2020 due to side effects again. She is not interested in going back on any type of medication. She has not seen Med/Onc Dr. Faust since 2019. She reports that she was advised there isn't a significant benefit of taking Tamoxifen following mastectomies. 05/2013 Cara Ramirez's clinical Integrated BRACAnalysis was negative for a deleterious mutation. 04/2021 she returned for panel testing at OSH. She shared the results with me which were uploaded into the chart. 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 History pertaining to prior breast biopsies, genetic reports, pathology reports, treatment summaries, personal, social and family history has been extracted from Marilynn Petersen' note dated 09/20/2023. Her vitamin D level was Vitamin D 25 Hydroxy (ng/mL) Date Value 08/09/2014 42.0 She takes no supplements. BMD: No PERSONAL BREAST HISTORY: Past breast history (prior to this encounter) is as follows: Breast biopsy: Yes, as above Breast cysts: No Breast surgery: Yes, as above Breast cancer: Yes, as above CANCER SURVEILLANCE: Mammograms: N/A Breast MRI: N/A Colonoscopy: 09/2021 negative per patient report, no results available for review. RISK FACTORS FOR BREAST CANCER: Age at the onset of menses: Patient does not remember. P: 2 Age at the of first child: 31 years of age. She breast fed. Age at menopause: The patient is not menopausal at this time. Post-menopausal hormone therapy: Not applicable She has an intact uterus and ovaries History of Mantle Radiation prior to the age of 28: No Contraception: had a vasectomy BMI: Body mass index is 24.47 kg/m?. Current Weight: 147 lbs Mammographic density: Not applicable - she is s/p bilateral mastectomy Personal History of Benign Atypical Breast Biopsy: No Alcohol use: 5-6 per week PAST MEDICAL HISTORY: PAST MEDICAL HISTORY Diagnosis Date Allergic rhinitis, cause unspecified BRCA negative 05/29/2013 Carcinoma of upper-outer quadrant of left breast in fe (more content not included)... [facility] 04-27-2024 [facility] Telephone (GENSF) CARA SINGH ([id number]) 1975 F Date Time Provider Department 04/27/24 DIONI YUN During your visit today, we recorded the following information about you: Dioni Yun RN 04/27/2024 11:37 AM Signed Left voicemail re: [employer] message requesting pt return my call. Allergies As of Date: 04/27/2024 (No Known Allergies) Date Reviewed: 09/20/2023 Reviewed by: Selma Castillo MA - Fully Assessed Reason for Visit: Patient Update [1234] Prescriptions as of 04/27/2024 - Lactobacillus acidophilus (PROBIOTIC) 10 billion cell cap Take by mouth once daily. [employer] - L.acid/B.animalis,bifi dum/FOS (PROBIOTIC COMPLEX ORAL) Take by mouth once daily. [employer] 90 billion cells - tamoxifen (NOLVADEX) 20 mg tablet Take 1 tablet (20 mg) by mouth once daily. - losartan (COZAAR) 25 mg tablet Take 25 mg by mouth once daily. - OREGANO OIL ORAL Take by mouth. Intermittently for sinus congestion - albuterol HFA (PROAIR HFA) 90 mcg/actuation inhaler inhale 1 puff by mouth every 4 hours as needed for wheezing/shortnessof breath. as directed - fluticasone (FLONASE) 50 mcg/actuation nasal spray Use 1 [place] in each nostril daily at bedtime. Meds Comments as of 06/21/2013: a Problem List As Of Date 04/27/2024 Noted Resolved ASCUS favor dysplasia [R87.611] 06/23/2006 05/07/2010 URINARY CALCULUS NOS [N20.9] Moderate dysplasia of cervix [N87.1] 05/14/2010 Personal history of cervical dysplasia [Z87.410]05/07/2010 IUD (intrauterine device) in place [Z97.5] 05/14/2010 07/06/2012 PMS (premenstrual syndrome) [N94.3] 07/06/2012 Personal history of breast cancer [Z85.3] 07/09/2013 Status post right mastectomy [Z90.11] 07/16/2013 ER+ (estrogen receptor positive status) [Z17.0] 07/16/2013 Use of tamoxifen (Nolvadex) [Z79.810] 07/16/2013 Status post bilateral breast implants [Z98.82] 02/28/2014 Malignant neoplasm of upper-outer quadrant of r*03/22/2015 BRCA negative [Z13.71] 05/29/2013 Carcinoma of left breast in female, estrogen re*06/2019 Carcinoma of upper-outer quadrant of left breas*06/2019 Essential hypertension [I10] 07/09/2019 PONV (postoperative nausea and vomiting) [R11.2*07/19/2019 Encounter Status:Closed by DIONI YUN on 04/27/24 Normal [facility] [place] Gram Stainon 03-29-2024 GS Gram Stain No organisms seen 2+ White Blood Cells No Epithelial cells Normal [facility] Comment on above: Performed By: #### M 100.1999, M100.2500 #### [facility] [address] [place], [address] Nasopharyngeal Cultureon NAC No growth in 48 hours. Normal [facility] Comment on above: Performed By: #### M 100.1999, M100.2500 #### [facility] [address] [place], [address] Comprehensive Metabolic Prof ilon 10-25-2023 Albumin [Mass/Vol] 3.8 g/dL Normal 3.2-5.0 [facility] Comment on above: Performed By: #### L [id number] #### [facility] [address] [place], [address] Albumin/Globulin [Mass ratio] 1.2 {ratio} Normal 0.9-2.4 [facility] Comment on above: Performed By: #### L [id number] #### [facility] [address] [place], [address] ALK P 56 U/L Normal 45-117 [facility] Comment on above: Performed By: #### L [id number] #### [facility] [address] [place], [address] ALT [Catalytic activity/Vol] 30 U/L Normal 13-56 [facility] Comment on above: Performed By: #### L [id number] #### [facility] [address] [place], [address] AST [Catalytic activity/Vol] 20 U/L Normal 15-37 [facility] Comment on above: Performed By: #### L [id number] #### [facility] [address] [place], [address] Bilirubin [Mass/Vol] 0.30 mg/dL Normal 0.20-1.00 [facility] Comment on above: Result Comment: For patients on eltrombopag therapy, use of Dimension Sneads TBIL is not recommended. Performed By: #### L [id number] #### [facility] [address] [place], [address] BUN/CRE 25.0 RATIO High 10-20 [facility] Comment on above: Performed By: #### L [id number] #### [facility] [address] [place], [address] CA,Total 9.4 mg/dL Normal 8.5-10.1 [facility] Comment on above: Performed By: #### L [id number] #### [facility] [address] [place], [address] Chloride [Moles/Vol] 105 mmol/L Normal 98-107 [facility] Comment on above: Performed By: #### L [id number] #### [facility] [address] [place], [address] CO2 [Moles/Vol] 26.0 mmol/L Normal 21.0-32.0 [facility] Comment on above: Performed By: #### L [id number] #### [facility] [address] [place], [address] Creatinine [Mass/Vol] 0.72 mg/dL Normal 0.55-1.02 [facility] Comment on above: Result Comment: The validity of the calculated GFR GFRAA in patients over 70 years has not been determined. Clinical correlation is essential. Performed By: #### L [id number] #### [facility] [address] [place], [address] EST GFR - AA 110 mL/min Normal >60 [facility] Comment on above: Result Comment: Afri can Croatian GFR Calc Performed By: #### L [id number] #### [facility] [address] [place], [address] GAP 4 Low 5-15 [facility] Comment on above: Performed By: #### L [id number] #### [facility] [address] [place], [address] GFR/1.73 sq M.predicted among non-blacks MDRD (S/P/Bld) [Vol rate/Area] 91 mL/min/{1.73_m2} Normal >60 [facility] Comment on above: Result Comment: Non- GFR Calc Performed By: #### L [id number] #### [facility] [address] [place], [address] Globulin (S) [Mass/Vol] 3.3 g/dL Normal 2.2-4.2 [facility] Comment on above: Performed By: #### L [id number] #### [facility] [address] [place], [address] Glucose [Mass/Vol] 96 mg/dL Normal 74-106 [facility] Comment on above: Performed By: #### L [id number] #### [facility] [address] [place], [address] Potassium [Moles/Vol] 3.7 mmol/L Normal 3.5-5.1 [facility] Comment on above: Performed By: #### L [id number] #### [facility] [address] [place], [address] Sodium [Moles/Vol] 135 mmol/L Low 136-145 [facility] Comment on above: Performed By: #### L [id number] #### [facility] [address] [place], [place], [address] T PROT 7.1 g/dL Normal 6.4-8.2 [facility] Comment on above: Performed By: #### L [id number] #### [facility] [address] [place], [place], [id number] Urea nitrogen [Mass/Vol] 18 mg/dL Normal 7-18 [facility] Comment on above: Performed By: #### L [id number] #### [facility] [address] [place], [place], [id number] CNOVon 09-20-2023 CNOV Office Visit (GENSF) CARA SINGH ([id number]) 1975 F Date Time Provider Department 09/20/23 10:30 AM MARILYNN PETERSEN During your visit today, we recorded the following information about you: Temperature Pulse Blood pressure Weight 98.2 degrees 85/minute 134/80 65.3 kg Last Period 09/15/23 Marilynn Petersen PA-C 12/29/2023 7:47 AM Addendum MEDICAL BREAST PATIENT NAME: Cara Singh September 20, 2023 HISTORY of PRESENT ILLNESS: 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 The patient denies any chest wall masses or skin change bilaterally. In 2013, she had Stage l (pT1a N0) right invasive ductal carcinoma. 03/2013 screening mammogram was abnormal for which subsequent right diagnostic imaging revealed a cluster of calcifications in the UOQ near the nipple. 04/2013 right mammotome biopsy revealed Grade 2 IDC, ER+(>95%)/AK+(80%)/HER 2-. 04/2013 breast MRI revealed bilateral enlarged axillary LNs. 06/2013 right nipple-sparing mastectomy/SLNB and TE placement by Drs. Garza/Brodie revealed Grade 2 IDC, 1.1 mm. Margins were negative (closest 9 mm). 0/3 SLN were involved. No LVI. She took tamoxifen for 2 years but stopped in 05/2015 due to significant hot flashes and mood swings. 11/2013 she had a right TE exchange for permanent smooth round silicone retropectoral implant and left breast augmentation with smooth round silicone retropectoral implant, and 06/2014 she had right reconstructed breast revision and an implant exchange bilaterally by Dr. Chirinos. In 2019, she had Stage 1 (pT1b N0 M0) left invasive mammary carcinoma in the upper outer quadrant of breast. At OSH she had an abnormal screening mammogram in 04/2019 for which left US revealed a 9 mm lobulated mass at 2:00, 5 cmfn. 06/2019 left ultrasound guided core biopsy at OSH showed Grade 1 Invasive mammary carcinoma with ductal and lobular features, ER+(90%)/AK+(80%)/HER2 -. 07/2019 left nipple sparing mastectomy/SLNB and TE placement with removal of implant by Drs. Garza/Brodie showed an 8 mm Grade 1 Invasive mammary carcinoma with lobular morphology. 0/3 SLNB were involved. Margins were negative (closest 4 mm). No LVI. 10/2019 she had a TE exchange for a permanent smooth round silicone retropectoral implant by Dr. Chirinos. Oncotype RS was 14 corresponding to a 4% risk of distant recurrence at 10 years; thus chemotherapy was not recommended. She started Tamoxifen in 07/2019 and then stopped it in early 2020 due to side effects again. She is not interested in going back on any type of medication. She has not seen Med/Onc Dr. Faust since 2019. She reports that she was advised there isn't a significant benefit of taking Tamoxifen following mastectomies. 05/2013 Cara Ramirez's clinical Integrated BRACAnalysis was negative for a deleterious mutation. 04/2021 she returned for panel testing at OSH. She shared the results with me which were uploaded into the chart. 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 History pertaining to prior breast biopsies, genetic reports, pathology reports, treatment summaries, personal, social and family history has been extracted from 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's note dated 09/15/22. Her vitamin D level was Vitamin D 25 Hydroxy (ng/mL) Date Value 08/09/2014 42.0 She takes no supplements. BMD: No PERSONAL BREAST HISTORY: Past breast history (prior to this encounter) is as follows: Breast biopsy: Yes, as above Breast cysts: No Breast surgery: Yes, as above Breast cancer: Yes, as above CANCER SURVEILLANCE: Mammograms: N/A Breast MRI: N/A Colonoscopy: 09/2021 negative per patient report, no results available for review. RISK FACTORS FOR BREAST CANCER: Age at the onset of menses: Patient does not remember. P: 2 Age at the of first child: 31 years of age. She breast fed. Age at menopause: The patient is not menopausal at this time. Post-menopausal hormone therapy: Not applicable She has an intact uterus and ovaries History of Mantle Radiation prior to the age of 28: No Contraception: had a vasectomy Obesity: No, Body mass index is 23.96 kg/m?. Current Weight: 143 lbs Mammographic density: Not applicable - she is s/p bilateral mastectomy Personal History of Benign Atypical Breast Biopsy: No Alcohol use: 5-6 per week PAST MEDICAL HISTORY: 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 right b (more content not included)... Normal [facility] [place] Absolute lymphocyte countOrd ered By: Martha Andrews on 07-11-2023 Lymphocytes Auto (Unsp spec) [#/Vol] 2.42 10*3/uL 0.83-4.51 [facility] Automated lymphocyte count a s percentage of total leukocytesOrdered By: Martha Andrews on 07-11-2023 Lymphocytes/100 WBC Auto (Unsp spec) 36.4 % 19-41 [facility] Basophil percentageOrdered B y: Martha Andrews on 07-11-2023 Basophils/100 WBC (Bld) 0.8 % 0-1 [facility] Eosinophils/100 WBC (Bld) 6.2 % 0-5 [facility] Hemoglobin (Bld) [Mass/Vol] 12.2 g/dL 12.0-15.0 [facility] Monocytes/100 WBC (Bld) 8.0 % 0-10 [facility] Neutrophils (Bld) [#/Vol] 3.2 10*3/uL 2.0-7.7 [facility] Neutrophils/100 WBC (Bld) 48.4 % 47-70 [facility] WBC (Bld) [#/Vol] 6.7 10*3/uL 4.4-11.0 [facility] Determination of erythrocyte mean corpuscular volume (MCV)Ordered By: Martha Andrews on 07-11-2023 MCV (RBC) [Entitic vol] 92.0 fL 81-99 [facility] Erythrocyte distribution wid th ratioOrdered By: Martha Andrews on 07-11-2023 Erythrocyte distribution width (RBC) [Ratio] 12.7 % 11.6-14.6 [facility] Erythrocyte distribution wid th standard deviationOrdered By: Martha Andrews on 07-11-2023 Erythrocyte distribution width (RBC) [Entitic vol] 42.6 fL 35.1-43.9 [facility] Hematocrit Auto (Bld) [Volum e fraction]Ordered By: Martha Andrews on 07-11-2023 Hematocrit (Bld) [Volume fraction] 37.8 % 37-47 [facility] Immature granulocytes/100 WB C Auto (Bld)Ordered By: Martha Andrews on 07-11-2023 Immature granulocytes/100 WBC (Bld) 0.200 % 0.0-0.9 [facility] Comment on above: IG% - Immature Granu locytes (promyelocytes, myelocytes and metamyelocytes) > 1% indicates that a LEFT SHIFT is Present. Laboratory - Hematology and Cell countsOrdered By: Martha Andrews on 07-11-2023 MCH (RBC) [Entitic mass] 29.7 pg 27.0-32.0 [facility] MCHC (RBC) [Mass/Vol] 32.3 g/dL 32-36 [facility] Nucleated RBC/100 WBC (Bld) [Ratio] 0 % 0-5 [facility] Platelet mean volume (Bld) [Entitic vol] 9.4 fL 6.2-12.0 [facility] Platelets (Bld) [#/Vol] 286 10*3/uL 150-450 [facility] RBC Auto (Bld) [#/Vol]Ordere d By: Martha Andrews on 07-11-2023 RBC (Bld) [#/Vol] 4.11 10*6/uL 4.2-5.4 [facility] Serum or plasma thyroid stim ulating hormone (TSH) measurement (units/volume)Ordered By: Martha Andrews on 07-11-2023 TSH Qn 1.20 uIU/mL 0.358-3.74 [facility] Gram stain for investigation of transfusion reactionOrdered By: Zander Ballesteros on 03-23-2023 Microscopic observation Gram stain Nom (Unsp spec) [facility] No Panel InformationOrdered By: Zander Ballesteros on 03-23-2023 Nasopharyngeal Culture No growth in 48 hours. [facility] Absolute lymphocyte countOrd ered By: Dr. Knox on 06-10-2022 Lymphocytes Auto (Unsp spec) [#/Vol] 1.57 10*3/uL 0.83-4.51 [facility] Basophil percentageOrdered B y: Dr. Knox on 06-10-2022 Basophils/100 WBC (Bld) 0.3 % 0-1 [facility] Bilirubin [Mass/Vol] 0.30 mg/dL 0.20-1.00 [facility] Comment on above: For patients on eltr ombopag therapy, use of Dimension Sneads TBIL is not recommended. Chloride [Moles/Vol] 105 mmol/L 98-107 [facility] Eosinophils/100 WBC (Bld) 0.1 % 0-5 [facility] Glucose [Mass/Vol] 113 mg/dL 74-106 [facility] Comment on above: Fasting Glucose resu lt from 100 to 125 mg/dL suggests IMPAIRED HOMEOSTASIS per A.D.A. criteria. Neutrophils (Bld) [#/Vol] 8.8 10*3/uL 2.0-7.7 [facility] Neutrophils/100 WBC (Bld) 81.6 % 47-70 [facility] Potassium [Moles/Vol] 4.0 mmol/L 3.5-5.1 [facility] Protein [Mass/Vol] 7.6 g/dL 6.4-8.2 [facility] Sodium [Moles/Vol] 140 mmol/L 136-145 [facility] WBC (Bld) [#/Vol] 10.8 10*3/uL 4.4-11.0 [facility] Blood erythrocytes count (nu mber/volume)Ordered By: Dr. Knox on 06-10-2022 RBC (Bld) [#/Vol] 4.29 10*6/uL 4.2-5.4 [facility] Blood hemoglobin measurement (mass/volume)Ordered By: Dr. Knox on 06-10-2022 Hemoglobin (Bld) [Mass/Vol] 13.1 g/dL 12.0-15.0 [facility] Blood lymphocytes/100 leukoc ytesOrdered By: Dr. Knox on 06-10-2022 Lymphocytes/100 WBC (Bld) 14.6 % 19-41 [facility] Blood monocytes/100 leukocyt esOrdered By: Dr. Knox on 06-10-2022 Monocytes/100 WBC (Bld) 2.6 % 0-10 [facility] Blood platelet mean volumeOr dered By: Dr. Knox on 06-10-2022 Platelet mean volume (Bld) [Entitic vol] 10.1 fL 6.2-12.0 [facility] Determination of erythrocyte mean corpuscular volume (MCV)Ordered By: Dr. Knox on 06-10-2022 MCV (RBC) [Entitic vol] 94.2 fL 81-99 [facility] Hematocrit Auto (Bld) [Volum e fraction]Ordered By: Dr. Knox on 02-23-2023 Hematocrit (Bld) [Volume fraction] 40.4 % 37-47 [facility] Laboratory - Chemistry and C hemistry - challengeOrdered By: Dr. Knox on 06-10-2022 ALP [Catalytic activity/Vol] 53 U/L 45-117 [facility] ALT [Catalytic activity/Vol] 39 U/L 13-56 [facility] CO2 [Moles/Vol] 29.0 mmol/L 21.0-32.0 [facility] Globulin (S) [Mass/Vol] 3.8 g/dL 2.2-4.2 [facility] Urea nitrogen/Creatinine [Mass ratio] 21.7 mg/mg 10-20 [facility] Laboratory - Hematology and Cell countsOrdered By: Dr. Knox on 06-10-2022 Erythrocyte distribution width (RBC) [Entitic vol] 44.3 fL 35.1-43.9 [facility] Erythrocyte distribution width (RBC) [Ratio] 12.8 % 11.6-14.6 [facility] Immature granulocytes/100 WBC (Bld) 0.800 % 0.0-0.9 [facility] Comment on above: IG% - Immature Granu locytes (promyelocytes, myelocytes and metamyelocytes) > 1% indicates that a LEFT SHIFT is Present. MCH (RBC) [Entitic mass] 30.5 pg 27.0-32.0 [facility] Nucleated RBC/100 WBC (Bld) [Ratio] 0 % 0-5 [facility] MCHC Auto (RBC) [Mass/Vol]Or dered By: Dr. Knox on 06-10-2022 MCHC (RBC) [Mass/Vol] 32.4 g/dL 32-36 [facility] No Panel InformationOrdered By: Dr. Knox on 06-10-2022 Estimated GFR (MDRD) Amer 108 mL/min >60 [facility] Comment on above: GFR Calc Estimated GFR (MDRD) Non-Af Amer 89 mL/min >60 [facility] Comment on above: Non- GFR Calc Platelets bldOrdered By: Dr. Knox on 06-10-2022 Platelets (Bld) [#/Vol] 397 10*3/uL 150-450 [facility] Serum or plasma albumin janna urement (mass/volume)Ordered By: Dr. Knox on 06-10-2022 Albumin [Mass/Vol] 3.8 g/dL 3.2-5.0 [facility] Serum or plasma albumin/glob ulin mass ratioOrdered By: Dr. Knox on 06-10-2022 Albumin/Globulin [Mass ratio] 1.0 {ratio} 0.9-2.4 [facility] Serum or plasma calcium janna urement (mass/volume)Ordered By: Dr. Knox on 06-10-2022 Calcium [Mass/Vol] 9.7 mg/dL 8.5-10.1 [facility] Serum or plasma creatinine m easurement (mass/volume)Ordered By: Dr. Knox on 06-10-2022 Creatinine [Mass/Vol] 0.74 mg/dL 0.55-1.02 [facility] Comment on above: The validity of the calculated GFR & GFRAA in patients over 70 years has not been determined. Clinical correlation is essential. Serum or plasma urea nitroge n measurement (mass/volume)Ordered By: Dr. Knox on 06-10-2022 Urea nitrogen [Mass/Vol] 16 mg/dL 7-18 [facility] Thin prep Papanicolaou smear with manual screeningOrdered By: Dr. Knox on 06-10-2022 Thin prep Papanicolaou smear with manual screening 25 U/L 15-37 [facility] Thin prep Papanicolaou smear with manual screening 6 5-15 [facility] Cervical or vagninal specime n microscopic examination by cytology stain (reported asOrdered By: Dr. Ryan on 05-06-2022 Cytology report Cyto stain Doc (Cvx/Vag) Comment . [facility] Comment on above: The Pap smear is a s creening test designed to aid in thedetection of premalignant and malignant conditions of theuterine cervix. It is not a diagnostic procedure andshould not be used as the sole means of detecting cervicalcancer. Both false-positive and false-negative reports dooccur. Detection in cervical specim en of any of human papilloma virus (HPV) 16, 18, 31, 33,Ordered By: Dr. Ryan on 05-06-2022 HPV 16+18+31+33+35+39+45+51 +52+56+58+59+66+68 DNA Probe+sig amp Ql (Cvx) Negative Negative [facility] Comment on above: This nucleic acid am plification test detects fourteen high-risk HPV types (16,18,31,33,35,39,45,51,52,56,58,59,66,68)without differentiation. Laboratory - CytologyOrdered By: Dr. Ryan on 05-06-2022 [employer]ing [employer] Rules Cyto stain Nom (Cvx/Vag) [ID] Comment . [facility] Comment on above: Wellington Cotter totechnologist Laboratory - Miscellaneous t estsOrdered By: Dr. Ryan on 05-06-2022 Service comment (Unsp spec) [Interp] Comment . [facility] Comment on above: This liquid based Th inPrep(R) pap test was screened withthe use of an image guided system. Service comment (Unsp spec) [Interp] . . [facility] Liquid-based cerv Pap + CT/G C by KARMEN w reflex to high-risk HPV for ASCUSOrdered By: Dr. Ryan on 05-06-2022 Cytology report Cyto stain.thin prep Doc (Cvx/Vag) Comment . [facility] Comment on above: Criteria not met, HP V Genotype not performed.Performed at: - [address] [id number] Director: Yue Bhatt MD, Phone: [phone] at: =[facility] [address] [id number] Director: Yue Bhatt MD, Phone: [phone] No Panel InformationOrdered By: Dr. Ryan on 05-06-2022 Pathology report final diagnosis Narrative Comment . [facility] Comment on above: NEGATIVE FOR INTRAEP ITHELIAL LESION OR MALIGNANCY. Laboratory - Chemistry and C hemistry - challengeon 10-06-2021 HCG ( test) Ql (U) Negative [facility] Work Phone: Comment on above: Very dilute urine sp ecimens, as indicated by a low specificgravity, may not contain personnel representative levels of hCG. If is still suspected, a first morning urinespecimen should be collected 48 hours later and tested. US KIDNEY / BLADDERon 2021 KIDNEY / BLADDER [place] [address] Patient: CARA SINGH Phone#: : 1975 Age: 46 Gender: F Pt. Type: Out Account: [id number] Location: Ordering: NEENA FELIXJOCELYN Exam Date: 06/24/2021/10:40 Family Phys: Charge Code: [id number] Physician: Darke Order #: [id number] DLP Dose#: PROCEDURE: KIDNEY/BLADDER ULTRASOUND COMPARISON: None. INDICATIONS: Microscopic hematuria TECHNIQUE: Ultrasound examination was performed of the kidneys and bladder. FINDINGS: RIGHT KIDNEY: Normal. Age-appropriate size and echotexture. Right kidney size 10.4 x 4.1 x 4.9 cm. No obstruction. LEFT KIDNEY: Suboptimal visualization of the left kidney due to positioning beneath the ribs. Left kidney size 10.2 x 5.1 x 4.2 cm. No obstruction. BLADDER: Normal. No visible wall thickening, mass, or calculus. Prevoid bladder volume measures 693 mL. Postvoid bladder volume measures 31 mL. OTHER: Negative. CONCLUSION: 1. Unremarkable appearance of the bladder. 2. No hydronephrosis. Dictated by: Waleska Astorga MD on 06/24/2021 at 16:32 Approved by: Waleska Astorga MD on 06/24/2021 at 16:37 Normal [facility] CBC + DIFFon 05-25-2021 Baso # 0.00 x10EE3/UL Normal 0.00 - 0.10 [facility] Comment on above: Performed By: #### 2 83023 #### [facility],[address] [place] [address] Basophils/100 WBC (Bld) 0.5 % Normal 0.0 - 2.0 [facility] Comment on above: Performed By: #### 2 60266 #### [facility],[address] [place] [address] CBC + DIFF Normal [facility] Comment on above: Result Comment: CBC- COMPLETE BLOOD COUNT Performed By: #### 2 24111 #### [facility],[address] [place] [address] EO # 0.10 x10EE3/UL Normal 0.00 - 0.50 [facility] Comment on above: Performed By: #### 2 32558 #### [facility],[address] [place] [address] Eosinophils/100 WBC (Bld) 2.3 % Normal 0.0 - 7.0 [facility] Comment on above: Performed By: #### 2 85737 #### [facility],[address] [place] [address] Erythrocyte distribution width (RBC) [Ratio] 13.0 % Normal 12.0 - 15.6 [facility] Comment on above: Performed By: #### 2 98519 #### [facility],[address] [place] [address] Hematocrit (Bld) [Volume fraction] 37.5 % Normal 34.0 - 46.0 [facility] Comment on above: Performed By: #### 2 57464 #### [facility],[address] [place] [address] Hemoglobin (Bld) [Mass/Vol] 12.5 g/dL Normal 12.0 - 16.0 [facility] Comment on above: Performed By: #### 2 16845 #### [facility],[address] [place] [address] Lymph # 1.80 x10EE3/UL Normal 0.80 - 2.80 [facility] Comment on above: Performed By: #### 2 72541 #### [facility],[address] [place] [address] Lymphocytes/100 WBC (Bld) 31.9 % Normal 20.0 - 45.0 [facility] Comment on above: Performed By: #### 2 18709 #### [facility],[address] [place] [address] MANUAL DIFF N/A Normal [facility] Comment on above: Performed By: #### 2 07935 #### [facility],[address] [place] [address] MCH (RBC) [Entitic mass] 30 pg Normal 27 - 33 [facility] Comment on above: Performed By: #### 2 95297 #### [facility],[address] [place] [address] MCHC 33 X10 3 Normal 32 - 36 [facility] Comment on above: Performed By: #### 2 86341 #### [facility],[address] [place] [address] MCV (RBC) [Entitic vol] 90 fL Normal 80 - 99 [facility] Comment on above: Performed By: #### 2 64441 #### [facility],[address] [place] [address] Chugach # 0.40 x10EE3/UL Normal 0.20 - 1.00 [facility] Comment on above: Performed By: #### 2 87784 #### [facility],[address] [place] [address] MONOS % 6.9 % Normal 0.0 - 10.0 [facility] Comment on above: Performed By: #### 2 00657 #### [facility],[address] [place] [address] Morphology Jairo (Bld) [Interp] N/A Normal [facility] Comment on above: Result Comment: {CD] Performed By: #### 2 48050 #### [facility],[address] [place] [address] Neut # 3.30 x10EE3/UL Normal 1.50 - 7.10 [facility] Comment on above: Performed By: #### 2 27859 #### [facility],[address] [place] [address] Neutrophils/100 WBC (Bld) 58.4 % Normal 46.0 - 76.0 [facility] Comment on above: Performed By: #### 2 61532 #### [facility],[address] [place] [address] 74921 PLATELET 243 x10EE3/UL Normal 150 - 450 [facility] Comment on above: Performed By: #### 2 64771 #### [facility],[address] [place] [address] Platelet mean volume (Bld) [Entitic vol] 8.1 fL Normal 6.6 - 10.[address] [facility] Comment on above: Result Comment: AUTO MATED DIFFERENTIAL Performed By: #### 2 40094 #### [facility],[address] [place] [address] 76756 RBC 4.18 x 10EE6/UL Normal 4.10 - 5.30 [facility] Comment on above: Performed By: #### 2 15543 #### [facility],[address] [place] [address] 32283 WBC 5.6 x 10EE3/UL Normal 4.5 - 10.8 [facility] Comment on above: Performed By: #### 2 77891 #### [facility],[address] [place] [address] 39992 CMP with eGFRon 05-25-2021 AGE 46 years Normal [facility] Comment on above: Performed By: #### 2 25842 #### [facility],[address] [place] [address] 44215 Albumin [Mass/Vol] 3.8 g/dL Normal 3.4 - 5.0 [facility] Comment on above: Performed By: #### 2 83118 #### [facility],[address] [place] [address] 31645 Albumin/Globulin [Mass ratio] 1.2 {ratio} Normal 0.9 - 1.6 [facility] Comment on above: Performed By: #### 2 79238 #### [facility],[address] [place] [address] 74436 ALK PHOS 50 U/L Normal 46 - 116 [facility] Comment on above: Performed By: #### 2 65423 #### [facility],[address] [place] [address] 30282 ALT [Catalytic activity/Vol] 28 U/L Normal 14 - 59 [facility] Comment on above: Performed By: #### 2 84851 #### [facility],[address] [place] [address] 39096 Anion gap [Moles/Vol] 13 mmol/L Normal 10 - 20 [facility] Comment on above: Performed By: #### 2 49725 #### [facility],[address] [place] [address] 49875 AST [Catalytic activity/Vol] 18 U/L Normal 13 - 39 [facility] Comment on above: Performed By: #### 2 86261 #### [facility],[address] [place] [address] 19618 B/C RATIO 22 ratio Normal 0 - 30 [facility] Comment on above: Performed By: #### 2 24920 #### [facility],[address] [place] [address] 72114 Bilirubin [Mass/Vol] 0.7 mg/dL Normal 0.2 - 1.0 [facility] Comment on above: Performed By: #### 2 40101 #### [facility],[address] [place] [address] 76002 Calcium [Mass/Vol] 8.8 mg/dL Normal 8.5 - 10.1 [facility] Comment on above: Performed By: #### 2 89192 #### [facility],[address] [place] [address] 73987 Chloride [Moles/Vol] 101 mmol/L Normal 98 - 107 [facility] Comment on above: Performed By: #### 2 23864 #### [facility],[address] [place] [address] 34969 CMP with eGFR Normal [facility] Comment on above: Result Comment: COMP REHENSIVE METABOLIC PANEL Performed By: #### 2 11117 #### [facility],[address] [place] [address] 45671 CO2 [Moles/Vol] 27.0 mmol/L Normal 21.0 - 32.0 [facility] Comment on above: Performed By: #### 2 75294 #### [facility],[address] [place] [address] 92514 Creatinine [Mass/Vol] 0.67 mg/dL Normal 0.55 - 1.02 [facility] Comment on above: Performed By: #### 2 62461 #### [facility],[address] [place], [place] [address] GFR/1.73 sq M.predicted among non-blacks MDRD (S/P/Bld) [Vol rate/Area] mL/min/{1.73_m2} Normal 60 - 999 [facility] Comment on above: Performed By: #### 2 87296 #### [facility],[address] [place], [place] [address] Result Comment: ACCO RDING TO THE NATIONAL KIDNEY DISEASE EDUCATION PROGRAM(NKDE), A NORMAL eGFR IS A VALUE GREATER THAN OR EQUAL TO 60 ML/MIN/1.73 SQ METERS. CHRONIC KIDNEY DISEASE: <60mL/MIN/1.73 SQ METERS KIDNEY FAILURE: <15mL/MIN/1.73 SQ METERS THIS TEST SHOULD ONLY BE USED FOR PATIENTS 18 YEARS OF AGE AND OLDER. Globulin (S) [Mass/Vol] 3.3 g/dL Normal 1.5 - 3.8 [facility] Comment on above: Performed By: #### 2 48515 #### [facility],[address] [place] [address] 45417 Glucose [Mass/Vol] 89 mg/dL Normal 74 - 106 [facility] Comment on above: Performed By: #### 2 98979 #### [facility],[address] [place] [address] 18310 Potassium [Moles/Vol] 4.0 mmol/L Normal 3.5 - 5.1 [facility] Comment on above: Performed By: #### 2 42726 #### [facility],[address] [place] [address] 40696 Protein [Mass/Vol] 7.1 g/dL Normal 6.4 - 8.2 [facility] Comment on above: Performed By: #### 2 28492 #### [facility],[address] [place] [address] 34825 Sodium [Moles/Vol] 137 mmol/L Normal 136 - 145 [facility] Comment on above: Performed By: #### 2 18914 #### [facility],[address] [place] [address] 97675 Urea nitrogen [Mass/Vol] 15 mg/dL Normal 7 - 18 [facility] Comment on above: Performed By: #### 2 13722 #### [facility],[address] [place] [address] 99023 LIPID PROFILEon 05-25-2021 Cholesterol [Mass/Vol] 203 mg/dL Normal 0 - 240 [facility] Comment on above: Performed By: #### 2 26506 #### [facility],[address] [place] [address] 84080 Cholesterol in HDL [Mass/Vol] 85 mg/dL High 40 - 60 [facility] Comment on above: Performed By: #### 2 48154 #### [facility],[address] [place] [address] 87928 Cholesterol in LDL [Mass/Vol] 106 mg/dL Normal 0 - 129 [facility] Comment on above: Performed By: #### 2 51312 #### [facility],[address] [place] [address] 84086 Cholesterol.total/Tressa sterol in HDL [Mass ratio] 2.4 {ratio} Normal 0.0 - 5.0 [facility] Comment on above: Performed By: #### 2 71738 #### [facility],[address] [place], [place] [address] Lipid [address] [facility] Comment on above: Result Comment: LIPI D PROFILE Performed By: #### 2 36361 #### [facility],[address] [place] [address] Triglyceride [Mass/Vol] 60 mg/dL Normal 0 - 150 [facility] Comment on above: Performed By: #### 2 88227 #### [facility],[address] [place], [place] [address] URINALYSISon 05-25-2021 Amorphous NONE Normal [facility] Comment on above: Performed By: #### 2 92068 #### [facility],[address] [place] [address] Bacteria 1+ Normal [facility] Comment on above: Performed By: #### 2 30722 #### [facility],[address] [place] [address] 90712 Bilirubin Ql (U) Negative Normal NORMAL: NEGATIVE [facility] Comment on above: Performed By: #### 2 49687 #### [facility],[address] [place], [place] [phone] Casts NONE Normal [facility] Comment on above: Performed By: #### 2 50385 #### [facility],[address] [place] [address] 66389 Clarity (U) sl.cloudy Normal NORMAL: CLEAR [facility] Comment on above: Performed By: #### 2 48627 #### [facility],[address] [place] [address] 66655 Color (U) p.yel Normal NORMAL: YELLOW [facility] Comment on above: Performed By: #### 2 45433 #### [facility],[address] [place] [address] 18470 Crystals LM Nom (Urine sed) NONE Normal [facility] Comment on above: Performed By: #### 2 88370 #### [facility],[address] [place] [address] 45096 Epi Cells MANY Normal [facility] Comment on above: Performed By: #### 2 79261 #### [facility],[address] [place] [address] 48746 Glucose Ql (U) NORM Normal NORMAL: NORMAL [facility] Comment on above: Performed By: #### 2 24145 #### [facility],[address] [place], [place] [phone] Hemoglobin Ql (U) 10 Abnormal NORMAL: NEGATIVE [facility] Comment on above: Performed By: #### 2 26371 #### [facility],[address] [place], [place] [address] Ketone Negative Normal NORMAL: NEGATIVE [facility] Comment on above: Performed By: #### 2 90148 #### [facility],[address] [place] [address] 52614 Leukocytes Negative Normal NORMAL: NEGATIVE [facility] Comment on above: Performed By: #### 2 95288 #### [facility],[address] [place] [address] 86609 Mucous NONE Normal [facility] Comment on above: Performed By: #### 2 46747 #### [facility],[address] [place] [address] 75017 Nitrite Ql (U) Negative Normal NORMAL: NEGATIVE [facility] Comment on above: Performed By: #### 2 56537 #### [facility],[address] [place] [address] 96302 pH (U) 7 [pH] Normal NORMAL: 5.0-8.0 [facility] Comment on above: Performed By: #### 2 19718 #### [facility],[address] [place] [address] Protein Ql (U) Negative Normal NORMAL: NEGATIVE [facility] Comment on above: Performed By: #### 2 22876 #### [facility],[address] [place] [address] Rbc 0-5 Normal 0-3/hpf [facility] Comment on above: Performed By: #### 2 10296 #### [facility],[address] [place] [address] Sp Goodwin 1.010 Normal NORMAL: 1.010-1.030 [facility] Comment on above: Performed By: #### 2 23885 #### [facility],[address] [place] [address] Specimen Type Void Normal [facility] Comment on above: Performed By: #### 2 14579 #### [facility],[address] [place] [address] Urinalysis dipstick W Reflex Microscopic panel (U) SEE BELOW Normal [facility] Comment on above: Result Comment: MICR OSCOPIC Performed By: #### 2 58588 #### [facility],[address] [place] [address] Urobilinog NORM Normal NORMAL: NORMAL [facility] Comment on above: Performed By: #### 2 98390 #### [facility],[address] [place] [address] Wbc 1-5 Normal 0-5/hpf [facility] Comment on above: Performed By: #### 2 23875 #### [facility],[address] [place] [address] Yeast NONE Normal [facility] Comment on above: Performed By: #### 2 22768 #### [facility],[address] [place] [address] SURGICAL PATHOLOGYon 07-24-2 020 SURGICAL PATHOLOGY Specimen originated from [facility] Specimen #: [id number] Submitting Physician: KAMRAN CHIRINOS MD FINAL DIAGNOSIS Breast, left, capsule and scar, excision (A) - Fibrous capsule. - Skin with underlying foreign body giant cell reaction and scar. [facility]//11-12-2019 Fannie Bailey M.D. (Electronic Signature) _ SPECIMEN SUBMITTED A: LEFT BREAST CAPSULE AND SCAR CLINICAL DATA HISTORY OF BREAST CANCER GROSS DESCRIPTION A. Received in formalin labeled left breast capsule and scar are multiple irregular fragments of unoriented, irregular, mckeon, unremarkable skin and mckeon-pink membranous capsule aggregating to 5 x 2 x 0.5 cm. Sectioning reveals no nodularity or induration identified. [employer] Booth sections of skin and capsule are submitted in cassettes A1-A3. [facility]//11-10-2019 Gross examination performed at [facility] [place] [address] Date of Report: 11/13/2019 Date of Procedure: 11/09/2019 Date of Receipt: 11/09/2019 Submitted by: KAMRAN CHIRINOS MD Location: [facility] interpretation performed at [facility], [facility] [place] [address]. CLIA Number: [id number] Normal [facility] Comment on above: Performed By: #### S #### See report for performing lab information. Jason 07-02-2019 RASHEEDN Telephone (AGGBRCR) JAMESCARA SILVA ([id number]) 1975 F Date Time Provider Department 07/02/19 PRINCE GARZA During your visit today, we recorded the following information about you: Argentina Reardon RN 07/02/2019 3:47 PM Signed Pt called and wanted to know pathology results- discussed the results- pt aware of treatment. She will call Dr. Garza to schedule a visit. Instructed to call with any questions- support offered Argentina Reardon RN Allergies As of Date: 07/02/2019 (No Known Allergies) Date Reviewed: 06/22/2019 Reviewed by: Janeth (Rn) Yahir - Fully Assessed Reason for Visit: Results [95] Prescriptions as of 07/02/2019 Sig: LOSARTAN 25 MG TABLET Take 25 mg by mouth once bright* OREGANO OIL ORAL Take by mouth. Intermittently* ALBUTEROL SULFATE HFA 90 MCG/* inhale 1 puff by mouth every * FLUTICASONE PROPIONATE 50 MCG* Use 1 [place] in each nostril d* Problem List As Of Date 07/02/2019 Noted Resolved ALLERGIC RHINITIS NOS [J30.9] 08/10/2001 PANIC DISORDER [F41.0] 08/10/2001 PALPITATIONS [R00.2] 08/10/2001 ASCUS favor dysplasia [R87.611] 06/23/2006 05/07/2010 More... URINARY CALCULUS NOS [N20.9] More... Moderate dysplasia of cervix [N87.1] 05/14/2010 Personal history of cervical dysplasia [Z87.410]05/07/2010 More... IUD (intrauterine device) in place [Z97.5] 05/14/2010 07/06/2012 PMS (premenstrual syndrome) [N94.3] 07/06/2012 Shoulder impingement [M75.40] 10/17/2012 Pain in joint, shoulder region [M25.519] 11/06/2012 Malignant neoplasm of upper-outer quadrant of f*05/08/2013 Personal history of breast cancer [Z85.3] 07/09/2013 More... Breast cancer, right breast [C50.911] 07/16/2013 Status post right mastectomy [Z90.11] 07/16/2013 ER+ (estrogen receptor positive status) [Z17.0] 07/16/2013 Use of tamoxifen (Nolvadex) [Z79.810] 07/16/2013 Status post bilateral breast implants [Z98.82] 02/28/2014 Hot flashes due to tamoxifen [R23.2, T45.1X5A] 03/01/2014 Hair thinning [L65.9] 03/01/2014 Axillary mass [R22.30] 11/11/2014 Malignant neoplasm of upper-outer quadrant of r*03/22/2015 Encounter Status:Closed by LETICIA SMITH on 07/02/19 [facility] DIAGNOSTIC [facility]on 06-26-19 20 [facility] DIAGNOSTIC LT * * *Final Report* * * DATE OF EXAM: Jun 26 2019 8:31AM AAW 0621 - [facility] DIAGNOSTIC LT / PROCEDURE REASON: multiple diagnoses * * * * Physician Interpretation * * * * #[id number] - [facility] DIAGNOSTIC LT UNILATERAL LEFT DIGITAL DIAGNOSTIC MAMMOGRAM WITH CAD POST-PROCEDURE IMAGING FOR MARKER PLACEMENT: 06/26/2019 HISTORY: Post breast biopsy clip placement. RESULT: TECHNIQUE: The study was acquired using full field digital technology and interpreted from soft copy. Current study was also evaluated with a Computer Aided Detection (CAD). Comparison is made to exams dated: 06/22/2019 ultrasound - [facility], 10/21/2015 mammogram - [facility], 06/26/2019 ultrasound biopsy - [facility], and 10/16/2014 mammogram - [facility]. The tissue of left breast is heterogeneously dense. This may lower the sensitivity of mammography. There is a marker clip in the appropriate position in the left breast at 2 o'clock middle depth. This marker clip placement is at the biopsy site. IMPRESSION: POST PROCEDURE MAMMOGRAM FOR MARKER PLACEMENT There was a successful marker clip placement in the left breast middle depth. Dov Clark M.D. tab/penrad:06/26/2019 08:42:16 Foxing Closer(s): RT Marifer(R)(M), [facility] Mammogram BI-RADS: Post-procedure mammogram for marker placement Multiple national specialty organizations have released breast cancer screening guidelines for women at average risk for developing breast cancer - guidelines that are based on both evidence and opinion, yet differ on when to start and how often to screen for breast cancer. With representation from Breast Imaging, Internal Medicine, Women's Health, Family Medicine, and Medical/Surgical Oncology, the [facility] has carefully reviewed the data and reached the following consensus: 1) All women should engage in shared decision-making with their providers to decide when to start and how often to screen; 2) All women should have the opportunity to start screening mammography at age 40; 3) For women ages 45-55, we recommend annual screening mammograms; 4) For women ages 55 and over, we support both the transition from an annual to a biennial interval if this aligns more with patient's values and preferences, or continuation with annual screening; 5) All women should discuss with their providers when to stop screening mammograms. Outpatient Clerk: Denys Transcribe Date/Time: Jun 26 2019 8:31A Dictated by : DOV CLARK MD This examination was interpreted and the report reviewed and electronically signed by: DOV CLARK MD on Jun 26 2019 8:42AM EST Normal [facility] US BIOPSY BREAST LTon [facility] US BIOPSY BREAST LT * * *Final Repor t* * * * * * SEE BOTTOM OF REPORT FOR ADDENDED TEXT * * * DATE OF EXAM: Jun 26 2019 8:29AM AAW 0597 - [facility] US BIOPSY BREAST LT / PROCEDURE REASON: multiple diagnoses * * * * Physician Interpretation * * * * FINAL REPORT #[id number] - [facility] US BIOPSY BREAST LT ULTRASOUND GUIDED BIOPSY LEFT BREAST WITH MARKING DEVICE INSERTED AND POST DIGITAL MAMMOGRAPHIC IMAGIN06/26/2019 HISTORY: Patient presents for an ultrasound guided biopsy of the left breast. PATIENT CONSENT: The risks, benefits and alternatives were discussed with the patient. Verbal and written consent was obtained. The patient's name and date of were verified. Site confirmation was done and the site marked prior to the procedure starting. Audible Time Out: 0750 Procedure Start: 804 Procedure End: 818 PROCEDURE: Correlation is made to exams dated: 06/22/2019 ultrasound - [facility], [facility]2015 [facility] An [facility] guided biopsy using real-time ultrasound was performed for the concerning palpable irregular shaped lesion located in the left breast at 2 o'clock middle depth. This was described on the previous ultrasound report. The skin was prepped in the usual manner. Local anesthetic was administered to the access site. A skin bushra was made in the breast. The abnormality was approached from the lateral aspect. A 14 gauge biopsy needle was placed adjacent to the abnormality through an introducer device under ultrasound guidance. Once the needle was documented to be in the correct location, three specimens were obtained using marquee coaxial needle. A heart shaped clip was inserted into the biopsy cavity. A skin closure strip was applied to the access site. As a separate procedure in a separate room with a dedicated machine, post procedure digital mammographic imaging demonstrates the location device at the targeted area. The specimens were sent to the laboratory for pathological analysis. IMPRESSION: ULTRASOUND GUIDED BIOPSY MALIGNANT Ultrasound guided biopsy of the lesion in the left breast at 2 o'clock middle depth was successful. Pathology indicates malignant invasive mammary carcinoma. Pathology results are concordant with imaging findings. A surgical evaluation is recommended. SUMMARY: This patient is currently under the care of Dr. Garza for their newly diagnosed breast cancer. The patient received the results of the biopsy from Dr. Garza. Dov park/denys:07/09/2019 10:16:44 Foxing Closer(s): Yeimi Casas RDMS, [facility] Multiple national specialty organizations have released breast cancer screening guidelines for women at average risk for developing breast cancer - guidelines that are based on both evidence and opinion, yet differ on when to start and how often to screen for breast cancer. With representation from Breast Imaging, Internal Medicine, Women's Health, Family Medicine, and Medical/Surgical Oncology, the [facility] has carefully reviewed the data and reached the following consensus: 1) All women should engage in shared decision-making with their providers to decide when to start and how often to screen; 2) All women should have the opportunity to start screening mammography at age 40; 3) For women ages 45-55, we recommend annual screening mammograms; 4) For women ages 55 and over, we support both the transition from an annual to a biennial interval if this aligns more with patient's values and preferences, or continuation with annual screening; 5) All women should discuss with their providers when to stop screening mammograms. Outpatient Clerk: Denys Transcribe Date/Time: Jun 26 2019 7:35A Dictated by : DOV CLARK MD This examination was interpreted and the report reviewed and electronically signed by: DOV CLARK MD on Jun 26 2019 8:41AM EST This document has been addended by: DOV CLARK MD on Jul 09 2019 10:16AM EST Normal [facility] Pathology Miscellaneouson Pathology Miscellaneous Test performed a t [place] [address] NAME: CARA RAMIREZ REQUESTING: PRINCE GARZA DIAGNOSIS: IHC for HER2: See complete report from [facility]. SPECIMEN: TISSUE FOR SEND-OUT, HER-2 EXTERNAL CONSULT, PATHOLOGIST (Electronic signature on file) Signed out: 07/02/2019 10:56 PRINTED: 07/02/2019 Page 1 of 1 Normal [facility] Comment on above: Performed By: #### M ISC #### [place] [address] Surgical Tissue [place] 06-25 Surgical Tissue Exam Test performed at [place] [address] NAME: CARA RAMIREZ REQUESTING: PRINCE GARZA COPY TO: DOV CLARK; [facility] RADIOLOGY; TUMOR REGISTRY; ECOTHERAPIST FINAL DIAGNOSIS: CORE BIOPSY OF LEFT BREAST (2 O'CLOCK, 5 CM FROM NIPPLE) - INVASIVE WELL DIFFERENTIATED MAMMARY CARCINOMA. COMMENT: The tumor has the architectural features of a lobular carcinoma with absence of tubule formation (tubule score =3) and a single file pattern of infiltration. There is grade 1 nuclear atypia and mitoses are not identified (mitotic score = 1) for a total Carpenter score of 5 corresponding to a grade 1 tumor. No in situ component is identified. No vascular invasion is found to be present. Despite having the typical histologic features of invasive lobular carcinoma, an E-cadherin immunostain reveals the tumor cells to be strongly positive. This suggests that the tumor may have mixed ductal and lobular features. A cytokeratin immunostain was performed to better identify the tumor cells. This case was also reviewed by Dr. Ron Amor who agrees with the diagnosis. THERAPEUTIC MARKER ANALYSIS ER - - - - - Positive, 90%, strong diffuse staining. AK - - - - - Positive, 80%, strong diffuse staining. HER2- - - - Pending. Immunochemical stains are performed on formalin-fixed, paraffin-embedded tissue using the Polymer DAB detection system. Antibody clones are anti-ER([id number])and anti-AK (16). Appropriate positive and negative controls, as well as the patient's specimen, are evaluated for intensity (absent, weak, moderate, strong), extent (% of cells with immunoreactivity), and distribution of staining. A result is interpreted as positive if 1% or more of cells are immunoreactive and as negative if less than 1% of cells are immunoreactive. OPERATIVE PROCEDURE: Left breast ultrasound guided core biopsy CLINICAL INFORMATION: Left breast mass 2 o'clock 5 cm FN, Heart clip; Mass vs fat necrosis; Obtained 0807, Formalin 0808 GROSS DESCRIPTION: Left breast Received in formalin labeled left breast 2 o'clock, 5 cm from nipple, are multiple cylindrical white soft segments of tissue aggregating to 1.0 x 0.3 x 0.1 cm. The specimens are totally submitted in formalin in one cassette. Time removed from patient is 8:07; time placed in formalin is 8:08. KVB:landry JOSE M.D. (Electronic signature on file) Signed out: 06/29/2019 16:56 PRINTED: 06/29/2019 Page 1 of 1 Normal [facility] Comment on above: Performed By: #### S URG #### [place] [address] [employer] BREAST LTD LTon 06-21 [employer] BREAST [facility]TD LT * * *Final Report* * * * * * SEE BOTTOM OF REPORT FOR ADDENDED TEXT * * * DATE OF EXAM: Jun 22 2019 1:22PM NURISW 0593 - [employer] BREAST LTD LT / PROCEDURE REASON: Lump of left breast * * * * Physician Interpretation * * * * THIS REPORT HAS BEEN AMENDED. #[id number] - [employer] BREAST LTD LT LIMITED ULTRASOUND OF LEFT BREAST AND AXILLA: 06/22/2019 HISTORY: Patient presents with left breast lump. RESULT: No prior exams were available for comparison. Ultrasound of the left breast 2 o'clock, and axilla regions was performed. Grady scale images of the real-time examination were reviewed. There is 0.9 cm x 0.6 cm x 0.9 cm lobulated mass with an indistinct margin in the left breast at 2 o'clock middle depth 5 cm from the nipple. This lobulated mass is hypoechoic. This correlates as palpated. IMPRESSION: SUSPICIOUS FINDING - BIOPSY SHOULD BE CONSIDERED The 0.9 cm x 0.6 cm x 0.9 cm lobulated mass in the left breast has a differential diagnosis of a solid mass or fat necrosis and is suspicious of malignancy. An ultrasound guided biopsy is recommended. Dov Clark M.D. xavier/denys:06/22/2019 14:14:45 Foxing Closer(s): Alma Guillen RDMS, [facility] Ultrasound BI-RADS: 4 Suspicious finding - Biopsy should be considered Multiple national specialty organizations have released breast cancer screening guidelines for women at average risk for developing breast cancer - guidelines that are based on both evidence and opinion, yet differ on when to start and how often to screen for breast cancer. With representation from Breast Imaging, Internal Medicine, Women's Health, Family Medicine, and Medical/Surgical Oncology, the [facility] has carefully reviewed the data and reached the following consensus: 1) All women should engage in shared decision-making with their providers to decide when to start and how often to screen; 2) All women should have the opportunity to start screening mammography at age 40; 3) For women ages 45-55, we recommend annual screening mammograms; 4) For women ages 55 and over, we support both the transition from an annual to a biennial interval if this aligns more with patient's values and preferences, or continuation with annual screening; 5) All women should discuss with their providers when to stop screening mammograms. AMENDMENT: 06/22/2019 Dov Clark M.D. The axilla was also evaluated. No abnormal appearing lymph nodes are seen. Amended BI-RADS: 4 Suspicious finding - Biopsy should be considered Outpatient Clerk: Denys Transcribe Date/Time: Jun 22 2019 12:25P Dictated by : DOV CLARK MD This examination was interpreted and the report reviewed and electronically signed by: DOV CLARK MD on Jun 22 2019 2:14PM EST This document has been addended by: DOV CLARK MD on Jun 22 2019 2:16PM EST Normal [facility] Office Visit: annualon 03-17 Documentation of current medications (procedure) T Invalid Interpretation Code [facility] Fall risk assessment No Invalid Interpretation [facility] Tobacco smoking status NHIS Tobacco smoking status NHIS Invalid Interpretation Code [facility] Tobacco use CPHS Never smoker Invalid Interpretation Code [facility] Vital Signs Date Time Vital Sign Value Performing Clinician Faci lity 09-26-2024 13:03-0400 Body height 165.[address] Neena Knox MD Work Phone: [facility] 09-26-2024 13:02-0400 Body mass index (BMI) [Ratio] 24.3 kg/m2 Dr. Neena Knox MD Work Phone: [facility] 09-26-2024 13:02-0400 Body weight 66.[address] Neena Knox MD Work Phone: [facility] 09-26-2024 13:02-0400 Diastolic blood pressure 83 mm[Hg] Dr. Neena Knox MD Work Phone: [facility] 09-26-2024 13:02-0400 Systolic blood pressure 147 mm[Hg] Dr. Neena Knox MD Work Phone: [facility] 09-20-2024 09:50-0400 Body height 166 cm Jay Faust DO Work Phone: [facility] 09-20-2024 09:50-0400 Body mass index (BMI) [Ratio] 23.95 kg/m2 Jay Faust DO Work Phone: [facility] 09-20-2024 09:50-0400 Body temperature 98.1 [degF] Jay Faust DO Work Phone: [facility] 09-20-2024 09:50-0400 Body weight 66 kg Jay Masci DO Work Phone: [facility] 09-20-2024 09:50-0400 Diastolic blood pressure 84 mm[Hg] Jay Lomaxi DO Work Phone: [facility] 09-20-2024 09:50-0400 Heart rate 92 /min Jay Moniei DO Work Phone: [facility] 09-20-2024 09:50-0400 SaO2% (BldA) [Mass fraction] 99 % Jay Lomaxi DO Work Phone: [facility] 09-20-2024 09:50-0400 Systolic blood pressure 169 mm[Hg] Jay Lomaxi DO Work Phone: [facility] 09-12-2024 10:02-0400 Body temperature 99.3 [degF] Jeanna Temple MD Work Phone: [facility] 09-12-2024 10:02-0400 Diastolic blood pressure 76 mm[Hg] Jeanna Temple MD Work Phone: [facility] 09-12-2024 10:02-0400 Heart rate 83 /min Jeanna Temple MD Work Phone: [facility] 09-12-2024 10:02-0400 Respiratory rate 16 /min Jeanna Temple MD Work Phone: [facility] 09-12-2024 10:02-0400 SaO2% (BldA) [Mass fraction] 100 % Jeanna Temple MD Work Phone: [facility] 09-12-2024 10:02-0400 Systolic blood pressure 150 mm[Hg] Jeanna Temple MD Work Phone: [facility] 08-28-2024 10:08-0400 Diastolic blood pressure 88 mm[Hg] Jeanna Temple MD Work Phone: [facility] 08-28-2024 10:08-0400 Systolic blood pressure 155 mm[Hg] Jeanna Temple MD Work Phone: [facility] 08-28-2024 10:06-0400 Body temperature 98.01 [degF] Jeanna Temple MD Work Phone: [facility] 08-28-2024 10:06-0400 Heart rate 81 /min Jeanna Temple MD Work Phone: [facility] 08-28-2024 10:06-0400 SaO2% (BldA) [Mass fraction] 100 % Jeanna Temple MD Work Phone: [facility] 08-21-2024 10:18-0400 Body temperature 98.49 [degF] Jeanna Temple MD Work Phone: [facility] 08-21-2024 10:18-0400 Diastolic blood pressure 84 mm[Hg] Jeanna Temple MD Work Phone: [facility] 08-21-2024 10:18-0400 Heart rate 81 /min Jeanna Temple MD Work Phone: [facility] 08-21-2024 10:18-0400 SaO2% (BldA) [Mass fraction] 99 % Jeanna Temple MD Work Phone: [facility] 08-21-2024 10:18-0400 Systolic blood pressure 153 mm[Hg] Jeanna Temple MD Work Phone: [facility] 08-16-2024 13:34-0400 Body temperature 97 [degF] Dr. Neena Knox MD Work Phone: [facility] 08-16-2024 13:34-0400 Diastolic blood pressure 88 mm[Hg] Dr. Neena Knox MD Work Phone: [facility] 08-16-2024 13:34-0400 Heart rate 92 /min Dr. Neena Knox MD Work Phone: [facility] 08-16-2024 13:34-0400 Respiratory rate 16 /min Dr. Neena Knox MD Work Phone: [facility] 08-16-2024 13:34-0400 SaO2% (BldA) [Mass fraction] 97 % Dr. Neena Knox MD Work Phone: [facility] 08-16-2024 13:34-0400 Systolic blood pressure 143 mm[Hg] Dr. Neena Knox MD Work Phone: [facility] 08-16-2024 11:02-0400 Body height 165.[address] Neena Knox MD Work Phone: [facility] 08-16-2024 11:02-0400 Body mass index (BMI) [Ratio] 24.1 kg/m2 Dr. Neena Knox MD Work Phone: [facility] 08-16-2024 11:02-0400 Body weight 65.[address] Neena Knox MD Work Phone: [facility] 08-16-2024 10:36-0400 Body mass index (BMI) [Ratio] 24.18 kg/m2 Lalo Fletcher APRN.BASKET [employer]URNER Work Phone: [facility] 08-16-2024 10:36-0400 Body temperature 99 [degF] Lalo Fletcher APRN.BASK[employer]NER Work Phone: [facility] 08-16-2024 10:36-0400 Body weight 65.9 kg Lalo Fletcher APRN.B[employer]NER Work Phone: [facility] 08-16-2024 10:36-0400 Diastolic blood pressure 91 mm[Hg] Lalo Fletcher APRN.BASKET [employer]URNER Work Phone: [facility] 08-16-2024 10:36-0400 Heart rate 96 /min Lalo Fletcher APRN.BASKET [employer]NER Work Phone: [facility] 08-16-2024 10:36-0400 Respiratory rate 18 /min Lalo Fletcher APRN.B[employer]NER Work Phone: [facility] 08-16-2024 10:36-0400 SaO2% (BldA) [Mass fraction] 100 % Lalo Fletcher APRN.B[employer]NER Work Phone: [facility] 08-16-2024 10:36-0400 Systolic blood pressure 172 mm[Hg] Lalo Fletcher APRN.CNP Work Phone: [facility] 08-14-2024 10:05-0400 Body temperature 98.8 [degF] Jeanna Temple MD Work Phone: [facility] 08-14-2024 10:05-0400 Diastolic blood pressure 87 mm[Hg] Jeanna Temple MD Work Phone: [facility] 08-14-2024 10:05-0400 Heart rate 85 /min Jeanna Temple MD Work Phone: [facility] 08-14-2024 10:05-0400 SaO2% (BldA) [Mass fraction] 100 % Jeanna Temple MD Work Phone: [facility] 08-14-2024 10:05-0400 Systolic blood pressure 153 mm[Hg] Jeanna Temple MD Work Phone: [facility] 08-07-2024 10:18-0400 Diastolic blood pressure 90 mm[Hg] Jeanna Temple MD Work Phone: [facility] 08-07-2024 10:18-0400 Systolic blood pressure 153 mm[Hg] Jeanna Temple MD Work Phone: [facility] 08-07-2024 10:14-0400 Body temperature 98.91 [degF] Jeanna Temple MD Work Phone: [facility] 08-07-2024 10:14-0400 Heart rate 87 /min Jeanna Temple MD Work Phone: [facility] 08-07-2024 10:14-0400 SaO2% (BldA) [Mass fraction] 100 % Jeanna Temple MD Work Phone: [facility] 07-26-2024 14:19-0400 Body mass index (BMI) [Ratio] 24.54 kg/m2 Adam Corona DO Work Phone: [facility] 07-26-2024 14:19-0400 Body temperature 98.6 [degF] Adam Lopezchristianedouglas DO Work Phone: [facility] 07-26-2024 14:19-0400 Body weight 66.9 kg Adam Corona DO Work Phone: [facility] 07-19-2024 10:58-0400 Body mass index (BMI) [Ratio] 24.3 kg/m2 Jay Masci DO Work Phone: [facility] 07-19-2024 10:58-0400 Body temperature 98.91 [degF] Jay Masci DO Work Phone: [facility] 07-19-2024 10:58-0400 Body weight 66.22 kg Jay Masci DO Work Phone: [facility] 07-19-2024 10:58-0400 Diastolic blood pressure 83 mm[Hg] Jay Masci DO Work Phone: [facility] 07-19-2024 10:58-0400 Heart rate 83 /min Jay Masci DO Work Phone: [facility] 07-19-2024 10:58-0400 Respiratory rate 12 /min Jay Masci DO Work Phone: [facility] 07-19-2024 10:58-0400 SaO2% (BldA) [Mass fraction] 100 % Jay Masci DO Work Phone: [facility] 07-19-2024 10:58-0400 Systolic blood pressure 161 mm[Hg] Jay Masci DO Work Phone: [facility] 06-25-2024 08:50-0400 Body height 165.1 cm Pacc 3 Work Phone: [facility] 06-25-2024 08:50-0400 Body mass index (BMI) [Ratio] 24.13 kg/m2 Pacc 3 Work Phone: [facility] 06-25-2024 08:50-0400 Body weight 65.77 kg Pacc 3 Work Phone: [facility] 06-20-2024 10:27-0500 Body temperature 99 [degF] Jeanna Temple MD Work Phone: [facility] 06-20-2024 10:27-0500 Diastolic blood pressure 92 mm[Hg] Jeanna Temple MD Work Phone: [facility] 06-20-2024 10:27-0500 Heart rate 91 /min Jeanna Temple MD Work Phone: [facility] 06-20-2024 10:27-0500 SaO2% (BldA) [Mass fraction] 98 % Jeanna Temple MD Work Phone: [facility] 06-20-2024 10:27-0500 Systolic blood pressure 170 mm[Hg] Jeanna Temple MD Work Phone: [facility] 06-07-2024 09:58-0500 Body height 165.7 cm Adam Corona DO Work Phone: [facility] 06-07-2024 09:58-0500 Body mass index (BMI) [Ratio] 24.26 kg/m2 Adam Kochristianedouglas DO Work Phone: [facility] 06-07-2024 09:58-0500 Body weight 66.6 kg Adam Johnjose DO Work Phone: [facility] 05-31-2024 10:08-0500 Body height 166.5 cm Jay Lomaxi DO Work Phone: [facility] 05-31-2024 10:08-0500 Body mass index (BMI) [Ratio] 23.89 kg/m2 Jay Masci DO Work Phone: [facility] 05-31-2024 10:08-0500 Body temperature 98.91 [degF] Jay Lomaxi DO Work Phone: [facility] 05-31-2024 10:08-0500 Body weight 66.22 kg Jay Lomaxi DO Work Phone: [facility] 05-31-2024 10:08-0500 Diastolic blood pressure 78 mm[Hg] Jay Lomaxi DO Work Phone: [facility] 05-31-2024 10:08-0500 Heart rate 89 /min Jay Faust DO Work Phone: [facility] 05-31-2024 10:08-0500 SaO2% (BldA) [Mass fraction] 100 % Jay Faust DO Work Phone: [facility] 05-31-2024 10:08-0500 Systolic blood pressure 172 mm[Hg] Jya Faust DO Work Phone: [facility] 05-04-2024 10:48-0500 Body mass index (BMI) [Ratio] 24.47 kg/m2 Radha Christianson PA-C Work Phone: [facility] 05-04-2024 10:48-0500 Body temperature 98.4 [degF] Radha Christianson PA-C Work Phone: [facility] 05-04-2024 10:48-0500 Body weight 66.7 kg Radha Christianson PA-C Work Phone: [facility] 05-04-2024 10:48-0500 Diastolic blood pressure 81 mm[Hg] Radha Christianson PA-C Work Phone: [facility] 05-04-2024 10:48-0500 Heart rate 93 /min Radha Christianson PA-C Work Phone: [facility] 05-04-2024 10:48-0500 SaO2% (BldA) [Mass fraction] 100 % Radha Christianson PA-C Work Phone: [facility] 05-04-2024 10:48-0500 Systolic blood pressure 170 mm[Hg] Radha Christianson PA-C Work Phone: [facility] 09-20-2023 10:13-0400 Body mass index (BMI) [Ratio] 23.96 kg/m2 Dareal Petersen PA-C Work Phone: [facility] 09-20-2023 10:13-0400 Body temperature 98.2 [degF] Daad Markus-Dolores PA-C Work Phone: [facility] 09-20-2023 10:13-0400 Body weight 65.3 kg Daad Markus-Dolores PA-C Work Phone: [facility] 09-20-2023 10:13-0400 Diastolic blood pressure 80 mm[Hg] Daad Markus-Dolores PA-C Work Phone: [facility] 09-20-2023 10:13-0400 Heart rate 85 /min Daad Markus-Dolores PA-C Work Phone: [facility] 09-20-2023 10:13-0400 SaO2% (BldA) [Mass fraction] 100 % Daad Markus-Dolores PA-C Work Phone: [facility] 09-20-2023 10:13-0400 Systolic blood pressure 134 mm[Hg] Daad Markus-Dolores PA-C Work Phone: [facility] 07-11-2023 14:45-0400 Body height 165.[address] Neena Knox Work Phone: [facility] 07-11-2023 14:44-0400 Body mass index (BMI) [Ratio] 24.1 kg/m2 Dr. Neena Knox Work Phone: [facility] 07-11-2023 14:44-0400 Body weight 65.[address] Neena Knox Work Phone: [facility] 07-11-2023 14:44-0400 Diastolic blood pressure 88 mm[Hg] Dr. Neena Knox Work Phone: [facility] 07-11-2023 14:44-0400 Systolic blood pressure 155 mm[Hg] Dr. Neena Knox Work Phone: [facility] 09-15-2022 10:29-0400 Body temperature 98.2 [degF] Estefany Gumucio 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 Work Phone: [facility] 09-15-2022 10:29-0400 Body weight 64.5 kg Estefany Gumucio 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 Work Phone: [facility] 09-15-2022 10:29-0400 Diastolic blood pressure 69 mm[Hg] Estefany Gumucio 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 Work Phone: [facility] 09-15-2022 10:29-0400 Heart rate 83 /min Estefany Gumucio 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 Work Phone: [facility] 09-15-2022 10:29-0400 SaO2% (BldA) [Mass fraction] 100 % Estefany Gumucio 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 Work Phone: [facility] 09-15-2022 10:29-0400 Systolic blood pressure 145 mm[Hg] Estefany Gumucio 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 Work Phone: [facility] 05-06-2022 09:54-0500 Body height 165.[address] Neena Knox Work Phone: [facility] 05-06-2022 09:54-0500 Body mass index (BMI) [Ratio] 23.6 kg/m2 Dr. Neena Knox Work Phone: [facility] 05-06-2022 09:54-0500 Body weight 64.[address] Neena Knox Work Phone: [facility] 05-06-2022 09:54-0500 Diastolic blood pressure 92 mm[Hg] Dr. Neena Knox Work Phone: [facility] 05-06-2022 09:54-0500 Systolic blood pressure 147 mm[Hg] Dr. Neena Knox Work Phone: [facility] 10-06-2021 13:40-0400 Body temperature 98.4 [degF] Dr. Neena Knox Work Phone: [facility] Work Phone: 10-06-2021 13:40-0400 Diastolic blood pressure 70 mm[Hg] Dr. Neena Knxo Work Phone: [facility] Work Phone: 10-06-2021 13:40-0400 Heart rate 64 /min Dr. Neena Knox Work Phone: [facility] Work Phone: 10-06-2021 13:40-0400 Respiratory rate 16 /min Dr. Neena Knox Work Phone: [facility] Work Phone: 10-06-2021 13:40-0400 SaO2% (BldA) [Mass fraction] 100 % Dr. Neena Knox Work Phone: [facility] Work Phone: 10-06-2021 13:40-0400 Systolic blood pressure 120 mm[Hg] Dr. Neena Knox Work Phone: [facility] Work Phone: 10-06-2021 12:14-0400 Body height 165.[address] Neena Knox Work Phone: [facility] Work Phone: 10-06-2021 12:14-0400 Body mass index (BMI) [Ratio] 22.3 kg/m2 Dr. Neena Knox Work Phone: [facility] Work Phone: 10-06-2021 12:14-0400 Body weight 60.[address] Neena Knox Work Phone: [facility] Work Phone: 08-20-2021 09:24-0400 Body temperature 98.29 [degF] Marilynn Petersen PA-C Work Phone: [facility] 08-20-2021 09:24-0400 Body weight 62.87 kg Daad Markus-Dolores PA-C Work Phone: [facility] 08-20-2021 09:24-0400 Diastolic blood pressure 84 mm[Hg] Daad Markus-Dolores PA-C Work Phone: [facility] 08-20-2021 09:24-0400 Heart rate 81 /min Daad Markus-Dolores PA-C Work Phone: [facility] 08-20-2021 09:24-0400 SaO2% (BldA) [Mass fraction] 100 % Daad Markus-Dolores PA-C Work Phone: [facility] 08-20-2021 09:24-0400 Systolic blood pressure 144 mm[Hg] Daad Markus-Dolores PA-C Work Phone: [facility] 03-17-2017 15:13-0500 BMI (Body Mass Index) 23.96 kg/m2 [facility] 03-17-2017 15:13-0500 BP Diastolic 78 mm[Hg] [facility] 03-17-2017 15:13-0500 BP Systolic 132 mm[Hg] [facility] 03-17-2017 15:13-0500 Height 165.1 cm [facility] 03-17-2017 15:13-0500 Weight 65.32 kg [facility] Encounters Encounter Date Encounter Type Care Provider Facility Start: 10-04-2024 ambulatory Ellen Crawford cility:[facility] Start: 09-26-2024 End: 09-26-[address] [facility] Work Phone: Start: 09-26-2024 End: 09-26-[address] 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, estrogen receptor positive (HCC) (Primary Dx) Start: 09-18-2024 End: 09-18-2024 ambulatory JEANNA TEMPLE Facility:[facility] Comment on above: Patient Education Start: 09-17-2024 End: 09-17-2024 ambulatory JEANNA TEMPLE Facility:[facility] Start: 09-14-2024 End: 09-14-2024 ambulatory JEANNA TEMPLE Facility:[facility] Start: 09-13-2024 End: 09-13-2024 ambulatory JEANNA TEMPLE Facility:[facility] Start: 09-12-2024 End: 09-12-2024 Patient encounter procedure Jeanna Temple MD Work Phone: Radiation Oncology Comment on above: 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, estrogen receptor positive (HCC) (Primary Dx) Start: 09-12-2024 End: 09-12-2024 ambulatory JEANNA TEMPLE Facility:[facility] Start: 09-11-2024 End: 09-11-2024 ambulatory JEANNA TEMPLE Facility:[facility] Start: 09-07-2024 End: 09-07-2024 ambulatory JEANNA TEMPLE Facility:[facility] Start: 09-05-2024 End: 09-05-2024 ambulatory JEANNA TEMPLE Facility:[facility] Start: 09-04-2024 End: 09-04-2024 ambulatory JEANNA TEMPLE Facility:[facility] Start: 09-03-2024 End: 09-03-2024 ambulatory JEANNA TEMPLE Facility:[facility] Start: 08-31-2024 End: 08-31-2024 ambulatory JEANNA TEMPLE Facility:[facility] Start: 08-30-2024 End: 08-30-2024 ambulatory JEANNA TEMPLE Facility:[facility] Start: 08-29-2024 End: 08-29-2024 ambulatory JEANNA TEMPLE Facility:[facility] Start: 08-28-2024 End: 08-28-2024 Patient encounter procedure Jeanna Temple MD Work Phone: Radiation Oncology Comment on above: 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 Neena Knox MD Work Phone: [facility] Work Phone: Start: 08-23-2024 End: 08-23-[address] 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, estrogen receptor positive (HCC) (Primary Dx) Start: 08-14-2024 End: 08-14-2024 ambulatory [facility] Facility:[facility] Start: 08-13-2024 End: 08-13-2024 [facility] Facility:[facility] Start: 08-10-2024 End: 08-10-2024 ambulatory [facility] Facility:[facility] Start: 08-09-2024 End: 08-09-2024 ambulatory [facility] Facility:[facility] Start: 08-08-2024 End: 08-08-2024 ambulatory [facility] Facility:[facility] Start: 08-07-2024 End: 08-07-2024 Patient encounter procedure Jeanna Temple MD Work Phone: Radiation Oncology Comment on above: 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, estrogen receptor positive (HCC) (Primary Dx) Start: 08-07-2024 End: 08-07-2024 ambulatory [facility] Facility:[facility] Start: 08-06-2024 End: 08-06-2024 ambulatory [facility] Facility:[facility] Start: 08-02-2024 End: 08-02-2024 ambulatory Jay Faust DO Work Phone: Hematology/Oncology Comment on above: Test results from [facility] Start: 08-02-2024 End: 08-06-2024 Telephone encounter Jay Faust DO Work Phone: Hematology/Oncology Comment on above: Appointment Start: 08-01-2024 End: 08-04-2024 Patient encounter procedure Jeanna Temple MD Work Phone: Radiation Oncology Start: 08-01-2024 End: 08-04-2024 Radiation Oncology Note Jeanna Temple MD Work Phone: Radiation Oncology Comment on above: Simulation Note Treatment Planning Start: 08-01-2024 End: 08-01-2024 [facility] of [facility] Work Phone: Radiation Oncology Comment on above: 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, estrogen receptor positive (HCC) (Primary Dx) Start: 08-01-2024 End: 08-01-2024 ambulatory JEANNA TEMPLE Facility:[facility] Start: 07-31-2024 End: 08-03-2024 Orders Only Jeanna Temple MD Work Phone: Radiation Oncology Comment on above: 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, estrogen receptor positive (HCC) (Primary Dx) Start: 07-26-2024 End: 07-26-2024 Postop follow up visit related to original px Adam Corona DO Work Phone: General Surgery Comment on above: Recurrent breast can cer, right (HCC) (Primary Dx) Start: 07-26-2024 End: 07-26-2024 ambulatory ADAM CORONA Facility:[facility] [place] Start: 07-20-2024 End: 07-20-2024 ambulatory JEANNA TEMPLE Facility:[facility] Start: 07-19-2024 End: 07-19-2024 ambulatory Jay Faust DO Work Phone: Hematology/Oncology Comment on above: 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, estrogen receptor positive (HCC) (Primary Dx) Start: 07-19-2024 End: 07-19-2024 Patient encounter procedure Jay A Masci DO Work Phone: Hematology/Oncology Start: 07-10-2024 End: 07-10-2024 Follow-up encounter Brooke Raza RN General Surgery Comment on above: Results Start: 07-09-2024 End: 07-09-2024 Telephone encounter Jillian Camara RN Work Phone: General Surgery Comment on above: Post Op Call Start: 07-06-2024 End: 07-06-2024 ambulatory [facility] Facility:[facility] Start: 07-04-2024 End: 07-04-2024 Telephone encounter Catherine Arrington RN Work Phone: General Surgery Comment on above: PreOp Call Start: 06-29-2024 End: 06-29-2024 E-mail encounter from caregiver Catherine Arrington RN Work Phone: General Surgery Start: 06-29-2024 End: 06-29-2024 Admission to same day surgery center Catherine Arrington RN Work Phone: General Surgery Comment on above: surgery materials Recurrent breast can cer, right (HCC) (Primary Dx) Start: 06-29-2024 End: 06-29-2024 Telemedicine consultation with patient Catherine Arrington RN General Surgery Start: 06-29-2024 End: 06-29-2024 ambulatory [facility] Facility:[facility] [place] Start: 06-26-2024 End: 06-26-2024 ambulatory [facility] Facility:[facility] Start: 06-26-2024 End: 06-26-2024 Patient encounter procedure Em Swenson 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, estrogen receptor positive (HCC); Malignant 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, estrogen receptor positive (HCC); PONV (postoperative nausea and vomiting) Start: 06-25-2024 End: 06-25-2024 Preprocedural examination done [facility] Work Phone: [facility] Work Phone: Start: 06-24-2024 End: 06-25-2024 Telephone encounter Jay Faust DO Work Phone: Hematology/Oncology Comment on above: Results Start: 06-22-2024 End: 06-25-2024 Telephone encounter Jay Faust DO Work Phone: Hematology/Oncology Comment on above: Results Start: 06-21-2024 End: 06-21-2024 Telephone encounter Adam Corona DO Work Phone: General Surgery Start: 06-20-2024 End: 06-20-2024 Office outpatient visit 25 minutes Adam Corona DO Work Phone: Breast Center Comment on above: Recurrent breast can cer, right (HCC) (Primary Dx) Start: 06-20-2024 End: 06-20-2024 Subsequent hospital visit by physician [facility] Work Phone: Radiology Comment on above: 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] Start: 06-20-2024 End: 06-20-2024 ambulatory ADAM CORONA Facility:[facility] Start: 06-20-2024 End: 06-20-2024 Patient encounter procedure Jeanna Temple MD Work Phone: Radiation Oncology Comment on above: 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, estrogen receptor positive (HCC) (Primary Dx) Start: 06-19-2024 ambulatory ADAM CORONA Facility :[facility] [place] Start: 06-19-2024 End: 06-19-2024 Subsequent hospital visit by physician [facility] Work Phone: [facility] Comment on above: Recurrent breast can cer, right (HCC) [C50.911] Start: 06-18-2024 End: 06-19-2024 ambulatory Jay Faust DO Work Phone: Hematology/Oncology Start: 06-18-2024 End: 06-19-2024 Patient encounter procedure Jay Faust DO Work Phone: Hematology/Oncology Comment on above: Upcoming appointment Start: 06-18-2024 End: 06-19-2024 Telephone encounter Jeanna Temple MD Work Phone: Radiation Oncology Start: 06-15-2024 End: 06-15-2024 Telephone encounter Ellen Lawson RN Work Phone: General Surgery Comment on above: Patient Question Start: 06-12-2024 End: 06-13-2024 Telephone encounter Brooke Raza RN General Surgery Comment on above: Returning Patient's Call Start: 06-07-2024 End: 06-07-2024 Office outpatient new 60 minutes Adam Corona DO Work Phone: General Surgery Comment on above: Recurrent breast can cer, right (HCC) (Primary Dx); Personal history of breast cancer Start: 06-07-2024 End: 06-07-2024 ambulatory ADAM CORONA Facility:[facility] [place] Start: 06-07-2024 End: 06-07-2024 Subsequent hospital visit by physician [facility] Work Phone: Mammography Comment on above: Breast disorder [N64 .9] Start: 06-05-2024 End: 06-05-2024 ambulatory Ariana Schmid MD Work Phone: Mammography Comment on above: Breast Problem Start: 06-05-2024 End: 08-05-2024 Follow-up encounter 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 APRN.[employer] Work Phone: General Surgery Start: 06-05-2024 End: 06-05-2024 Patient encounter procedure Ariana Schmid MD Work Phone: Mammography Start: 06-01-2024 ambulatory UNKNOWN PROVIDER Facili ty:[facility] Start: 06-01-2024 End: 06-01-2024 Subsequent hospital visit by physician [facility] (1.5t) Radiology Comment on above: Breast disorder [N64 .9] Start: 05-31-2024 End: 05-31-2024 ambulatory Jay Faust DO Work Phone: Hematology/Oncology Comment on above: 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, estrogen receptor positive (HCC) (Primary Dx) Start: 05-31-2024 End: 05-31-2024 Patient encounter procedure Jay Faust DO Work Phone: Hematology/Oncology Start: 05-24-2024 End: 05-24-2024 Telephone encounter Lew Saba MD Work Phone: Hematology/Oncology Comment on above: New Patient Start: 05-23-2024 End: 05-23-2024 Telephone encounter Francia Song RN Mammography Comment on above: Results; Appointment Newly Diagnosed Breast disorder (Marlene juanita Dx) Start: 05-21-2024 ambulatory UNKNOWN PROVIDER Facili ty:[facility] [place] Start: 05-21-2024 End: 05-21-2024 Subsequent hospital visit by physician Procedure [facility] Work Phone: Mammography Comment on above: Abnormal finding on radiological examination of breast [R92.8] Start: 05-14-2024 ambulatory RADHA CHRISTIANSON Facility :[facility] [place] Start: 05-14-2024 End: 05-14-2024 Subsequent hospital visit by physician [facility] [place] [facility] Work Phone: Mammography Comment on above: History of bilateral breast cancer [Z85.3] Start: 05-04-2024 End: 05-04-2024 Patient encounter procedure Radha Christianson PA-C Work Phone: General Surgery Comment on above: Chest wall mass (Marlene juanita Dx); History of bilateral breast cancer; S/P bilateral breast implants; 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; S/P bilateral mastectomy; Family history of breast cancer Start: 05-04-2024 End: 05-04-2024 ambulatory RADHA CHRISTIANSON Facility:[facility] [place] Start: 04-27-2024 End: 04-27-2024 Telephone encounter Dioni Yun RN Work Phone: General Surgery Comment on above: Patient Update Start: 03-28-2024 End: 03-28-2024 ambulatory Zander Sanabriajessica Facility:[facility] Start: 12-28-2023 End: 12-29-2023 Admission to same day surgery center Marilynn Petersen PA-C Work Phone: General Surgery Comment on above: Breast MRI Start: 12-28-2023 End: 12-29-2023 ambulatory Marilynn Petersen PA-C Work Phone: General Surgery Start: 10-25-2023 End: 10-25-2023 ambulatory Neena Knox Facility:[facility] Start: 09-20-2023 End: 09-20-2023 Patient encounter procedure Marilynn Petersen PA-C Work Phone: General Surgery Comment on above: 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 Neena Knox Work Phone: [facility] Work Phone: Start: 07-11-2023 End: 07-11-[address] Neena Knox Work Phone: [facility]-Laboratory, [facility] Start: 07-11-2023 End: 07-11-[address] Neena Knox Work Phone: [facility] Work Phone: Start: 03-23-2023 End: 03-23-[address] 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 Neena Knox Work Phone: [facility] Work Phone: Start: 06-10-2022 End: 06-10-[address] [facility] Start: 05-06-2022 End: 05-06-[address] Neena Knox Work Phone: [facility] Work Phone: Start: 05-06-2022 End: 05-06-[address] [facility] Start: 05-06-2022 End: 05-06-[address] Neena Knox Work Phone: [facility] Start: 02-02-2022 Telephone encounter Marilynn Nix PA-C Work Phone: [facility] Comment on above: Patient Update Start: 10-22-2021 Telephone encounter Marilynn Nix PA-C Work Phone: General Surgery Comment on above: Scheduling Start: 10-06-2021 Non-patient / Non-visit Dr. Leonides Knox Work Phone: [facility] Start: 10-06-2021 End: 10-06-2021 Admission to same day surgery center Dr. 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 Neena Knox MD Work Phone: Start: 08-16-2024 Computed tomography of abdomen and pelvis with intravenous contrast Dr. Neena Knox MD Work Phone: Start: 08-16-2024 CT angiography of ch est with contrast Dr. Neena Knox MD Work Phone: Start: 08-16-[address] Neena Knox MD Work Phone: Start: 06-19-2024 Bone &/joint imaging whole body Adam Corona DO Work Phone: Start: 06-19-2024 Ct abdomen & pelvis w/contrast material Adam Corona DO Work Phone: Start: 06-19-2024 Ct thorax w/contrast material Adam Corona DO Work Phone: Start: 06-07-2024 Us breast uni real t henrik with image limited Ariana Schmid MD Work Phone: Start: 05-21-2024 Bx breast w/device 1 st lesion ultrasound guid Philipp Roldan MD Work Phone: Start: 05-14-2024 Us breast uni real t henrik with image limited Radha Christianson PA-C Work Phone: Start: 03-23-2023 Investigation of transfusion reaction Dr. Neena Knox Work Phone: Start: 03-23-[address] Neena Knox Work Phone: Start: 10-06-[address] Neena Knox Work Phone: Start: 05-25-2021 Urinalysis NEENA JARAMILLO Comment on above: Result Comment: URIN ALYSIS Performed By: #### 2 [id number] #### [facility],[address] [place] [address] Start: 10-21-2015 Mammography Daad Hamzah s-Dolores PA-C Work Phone: Start: 08-05-2015 Lipid 1996 panel - S beau or Plasma Daad Markus-Dolores PA-C Work Phone: Start: 02-28-2014 History of augmentat ion of breast Status post bilateral breast implants Daad Markus-Dolores PA-C Work Phone: History of augmentat ion of breast S/P bilateral breast implants Daad Markus-Dolores PA-C Work Phone: History of bilateral mastectomy History of mastectomy, bilateral Daad Markus-Dolores PA-C Work Phone: History of bilateral mastectomy History of mastectomy, bilateral Estefany Gumucio 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 Work Phone: History of bilateral mastectomy S/P bilateral mastectomy Marilynn Petersen PA-C Work Phone: History of bilateral mastectomy S/P bilateral mastectomy Marilynn Petersen PAAuraC Work Phone: History of bilateral mastectomy S/P bilateral mastectomy Radha Jose PAAuraC Work Phone: History of bilateral mastectomy S/P bilateral mastectomy Diagnostic Moll Work Phone: Plan of Treatment Date Care Activity Detail Author Start: 01-24-2025 End: 01-24-2025 Patient encounter procedure 01/24/2025 11:00 AM EDT Office Visit General Surgery [address] [place] [address] 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 [address] [place] [address] Please schedule 6 month follow-up with Estefany Power General Surgery Comment on above: Please schedule 6 mo nth follow-up with Estefany Power Start: 12-17-2024 Influenza vaccination Influenz a Vaccine (Season Ended) [facility] Start: 10-15-2024 End: 10-15-2024 Follow-up encounter 10/15/2024 9:00 AM EDT [facility] Radiation Oncology [address] [place], [place] [id number] Jeanna Temple MD [address] [place] [address] 4WK FOLLOW UP* Radiation Oncology Comment on above: 4WK FOLLOW UP* Start: 10-11-2024 End: 10-11-2024 ambulatory 10/11/2024 7:30 AM EDT [facility] [address] [place] [address] Walter Hughes 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 [address] [place], [place] [id number] treatment related hot flashes [facility] Comment on above: treatment related ho t flashes Start: 09-20-2024 End: 09-20-2024 ambulatory 09/20/2024 9:50 AM EDT Visit (SP) Office Hematology/Oncology [address] [place], [place] [address] Jay Faust DO [address] [place] [address] OV/RADIATION COMPLETED* Hematology/Oncology Comment on above: OV/RADIATION COMPLET ED* Start: 09-18-2024 End: 09-18-2024 Patient encounter procedure 09/18/2024 9:45 AM EDT Appointment Radiation Oncology [address] [place] [id number] [facility] Comment on above: Location: [facility] Start: 09-17-2024 End: 09-17-2024 Patient encounter procedure Psychology Comment on above: Dx: History of bilat eral breast cancer [Z85.3]; S/P bilateral breast implants [Z98.82]; 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 [Z15.01, Z15.89, Z15.09, Z15.02]; S/P bilateral mastectomy [Z90.13]; Family history of breast cancer [Z80.3] Location: [facility] Start: 09-14-2024 End: 09-14-2024 Patient encounter procedure 09/14/2024 9:45 AM EDT Appointment Radiation Oncology [address] [place] [phone] [facility] Comment on above: Location: [facility] Start: 09-13-2024 End: 09-13-2024 Patient encounter procedure Radiation Oncology Comment on above: Location: [facility] today only Start: 09-12-2024 End: 09-12-2024 Patient encounter procedure 09/12/2024 9:45 AM EDT Appointment Radiation Oncology [address] [place], [place] [id number] Location: [facility] Radiation Oncology Comment on above: Location: [facility] Start: 09-11-2024 End: 09-11-2024 Patient encounter procedure Radiation Oncology Comment on above: boost starts today Location: W-ON TREAT MENT VISIT boost starts today. boost preauth ok? boost starts today. Start: 09-07-2024 End: 09-07-2024 Patient encounter procedure 09/07/2024 9:45 AM EDT Appointment Radiation Oncology [address] [place] [address] Location: [facility] Radiation Oncology Comment on above: Location: [facility] Start: 09-06-2024 End: 09-06-2024 Patient encounter procedure 09/06/2024 9:45 AM EDT Appointment Radiation Oncology [address] [place], [place] [address] Location: [facility] Radiation On[facility] Comment on above: Location: [facility] Start: 09-05-2024 End: 09-05-2024 Patient encounter procedure 09/05/2024 9:45 AM EDT Appointment Radiation Oncology [address] [place] [address] set up boost today Radiation Oncology Comment on above: set up boost today Start: 09-04-2024 End: 09-04-2024 Patient encounter procedure Radiation Oncology Comment on above: Location: [facility] Location: W-ON TREAT MENT VISIT Start: 09-03-2024 End: 09-03-2024 Patient encounter procedure 09/03/2024 9:45 AM EDT Appointment Radiation Oncology [address] [place] [address] Location: [facility] Radiation On[facility] Comment on above: Location: [facility] Start: 08-31-2024 End: 08-31-2024 Patient encounter procedure 08/31/2024 9:45 AM EDT Appointment Radiation Oncology [address] [place] [address] Location: [facility] Radiation Oncology Comment on above: Location: [facility] Start: 08-30-2024 End: 08-30-2024 Patient encounter procedure 08/30/2024 9:45 AM EDT Appointment Radiation Oncology [address] [place] [address] Location: [facility] Radiation On[facility] Comment on above: Location: [facility] Start: 08-29-2024 End: 08-29-2024 Patient encounter procedure 08/29/2024 9:45 AM EDT Appointment Radiation Oncology [address] [place] [address] Location: [facility] Radiation Oncology Comment on above: Location: [facility] Start: 08-28-2024 End: 08-28-2024 Patient encounter procedure Radiation Oncology Comment on above: Location: [facility] Location: W-ON TREAT MENT VISIT Start: 08-27-2024 End: 08-27-2024 Patient encounter procedure Radiation Oncology Comment on above: Boost starts today Location: [facility] Start: 08-24-2024 End: 08-24-2024 Patient encounter procedure 08/24/2024 9:45 AM EDT Appointment Radiation Oncology [address] [place] [address] Location: [facility] Radiation On[facility] Comment on above: Location: [facility] Start: 08-23-2024 End: 08-23-2024 Patient encounter procedure 08/23/2024 9:45 AM EDT Appointment Radiation Oncology [address] [place] [address] Location: [facility] Radiation On[facility] Comment on above: Location: [facility] Start: 08-22-2024 End: 08-22-2024 ambulatory 08/22/2024 9:45 AM EDT OT/PT/Speech Visit [facility] Physical Therapy [address] [place] [id number] Makayla Almonte, PT Dx: Recurrent breast cancer, right (HCC) [C50.911] [facility] Physical Therapy Comment on above: Dx: Recurrent breast cancer, right (HCC) [C50.911] Start: 08-22-2024 End: 08-22-2024 Patient encounter procedure Radiation Oncology Comment on above: Location: [facility] PT at 945. today onl y PT at 915. today onl y Start: 08-21-2024 End: 08-21-2024 Patient encounter procedure Radiation Oncology Comment on above: Location: [facility] Location: W-ON TREAT MENT VISIT 915 tomorrow Start: 08-20-2024 End: 08-20-2024 Patient encounter procedure Radiation Oncology Comment on above: set up boost today? Location: [facility] Start: 08-17-2024 End: 08-17-2024 Patient encounter procedure 08/17/2024 9:45 AM EDT Appointment Radiation Oncology [address] [place] [address] Location: [facility] Radiation Oncology Comment on above: Location: [facility] Start: 08-16-2024 End: 08-16-2024 [facility] Start: 08-16-2024 [facility] Start: 08-16-2024 End: 08-16-2024 Patient encounter procedure 08/16/2024 9:45 AM EDT Appointment Radiation Oncology [address] [place] [address] Location: [facility] Radiation Oncology Comment on above: Location: [facility] Start: 08-15-2024 End: 08-15-2024 Patient encounter procedure 08/15/2024 9:45 AM EDT Appointment Radiation Oncology [address] [place] [address] Location: [facility] Radiation Oncology Comment on above: Location: [facility] Start: 08-14-2024 Urine microalbumin profile [facility] Start: 08-14-2024 End: 08-14-2024 Patient encounter procedure Radiation Oncology Comment on above: Location: [facility] Location: W-ON TREAT MENT VISIT Start: 08-13-2024 End: 08-13-2024 Patient encounter procedure 08/13/2024 9:45 AM EDT Appointment Radiation Oncology [address] [place] [address] Location: [facility] Rad[facility] On[facility] Comment on above: Location: [facility] Start: 08-10-2024 End: 08-10-2024 Patient encounter procedure 08/10/2024 9:45 AM EDT Appointment Radiation Oncology [address] [place] [address] Location: [facility] Radiation Oncology Comment on above: Location: [facility] Start: 08-09-2024 End: 08-09-2024 Patient encounter procedure 08/09/2024 9:45 AM EDT Appointment Radiation Oncology [address] [place] [address] Location: [facility] Radiation Oncology Comment on above: Location: [facility] Start: 08-08-2024 End: 08-08-2024 Patient encounter procedure 08/08/2024 9:45 AM EDT Appointment Radiation Oncology [address] [place] [id number] Location: [facility] Radiation Oncology Comment on above: Location: [facility] Start: 08-07-2024 End: 08-07-2024 Patient encounter procedure Radiation Oncology Comment on above: Location: [facility] Location: W-ON TREAT MENT VISIT Start: 08-06-2024 End: 08-06-2024 Patient encounter procedure Radiation Oncology Comment on above: Location: [facility] wants around [address] PSS- PLEASE INFORM P T OF 09/[address] FAUST. RESCHED AT HER REQUEST. NEEDS TO BE AFTER COMPLETION OF RADIATION Start: 08-01-2024 End: 08-01-2024 Patient encounter procedure 08/01/2024 11:30 AM EDT Office Visit Radiation Oncology [address] [place], [place] [address] Jeanna Temple MD [address] [place] [address] Location: W-CT SIMULATOR Radiation Oncology Comment on above: Location: W-CT SIMUL ATOR Start: 08-01-2024 End: 08-01-2024 Nursing evaluation of patient and report 08/01/2024 11:00 AM EDT Nurse Visit Radiation Oncology [address] [place] [phone] Wstr, Nurse Radt [facility] [address] [place] [address] Location: W-NURSING Radiation Oncology Comment on above: Location: W-NURSING Start: 07-26-2024 End: 07-26-2024 Patient encounter procedure 07/26/2024 2:30 PM EDT Office Visit General Surgery [address] [place] [address] Adam Corona DO [address] [place] [address] post op DOS 07/06 General Surgery Comment on above: post op DOS 07/06 Start: 07-24-2024 End: 07-24-2024 Admission to same day surgery center 07/24/2024 3:00 PM EDT [facility] General Surgery [address] [place] [address] Adam Corona, [address] [place] [address] post op DOS 07/06 General Surgery Comment on above: post op DOS 07/06 Start: 07-20-2024 End: 07-20-2024 Patient encounter procedure 07/20/2024 11:00 AM EDT Office Visit Radiation Oncology [address] [place] [address] Jeanna Temple MD [address] [place] [address] OV-2WK POST OP* Radiation Oncology Comment on above: OV-2WK POST OP* Start: 07-19-2024 End: 07-19-2024 ambulatory 07/19/2024 12:10 PM EDT Visit (SP) Office Hematology/Oncology [address] [place] [address] Jay Faust DO [address] [address] 4-6WK OV* Hematology/Oncology Comment on above: 4-6WK OV* Start: 07-06-2024 End: 07-06-2024 Admission to same day surgery center 07/06/2024 8:45 AM EDT - 07/06/2024 10:15 AM EDT Surgery [facility] [address] [place] [address] Adam Corona DO [address] [place] [address] LUMPECTOMY BREAST [facility] Comment on above: LUMPECTOMY BREAST Start: 07-06-2024 End: 07-06-2024 Mastectomy partial LUMPECTOMY BREAST Recurrent breast cancer, right (HCC) 07/06/2024 8:45 AM EDT [facility] Start: 07-06-2024 Subsequent hospital visit by physician [facility] Comment on above: Recurrent breast can cer, right (HCC) [C50.911] Start: 07-05-2024 End: 07-05-2024 ambulatory 07/05/2024 12:10 PM EDT Visit (SP) Office Hematology/Oncology [address] [place], [place] [id number] Jay Faust DO [address] [place] [address] 4-6WK OV* Hematology/Oncology Comment on above: 4-6WK OV* Start: 06-29-2024 End: 06-29-2024 Admission to same day surgery center 06/29/2024 10:00 AM EDT [facility] General Surgery [address] [place] [address] Catherine Arrington RN preop teaching General Surgery Comment on above: preop teaching Start: 06-26-2024 End: 06-26-2024 Patient encounter procedure 06/26/2024 11:30 AM EDT Office Visit [facility] [id number] [place] [address] Em Swenson, [facility] [address] [place] [address] Management of genetic mutation [facility] Comment on above: Management of geneti c mutation Start: 06-25-2024 End: 06-25-2024 Anesthesia consultation 06/25/2024 8:50 AM EDT PAT Pre Anesthesia [address] [place] [id number] Lumpectomy, Dr. Corona Pre Anesthesia Comment on above: Lumpectomy, Dr. Sultana cky Start: 06-20-2024 End: 06-20-2024 Patient encounter procedure 06/20/2024 10:30 AM EST Office Visit Radiation Oncology [address] [place] [address] Jeanna Temple MD [address], [place] [phone] BREAST CANCER CONSULT Radiation Oncology Comment on above: BREAST CANCER CONSUL T Start: 06-19-2024 End: 06-19-2024 Patient encounter procedure [facility] Comment on above: Weight 146 / Not Juany betic / Order in EPIC / DX: COMBO NM/ CT Start: 06-19-2024 End: 06-19-2024 Patient encounter procedure [facility] Comment on above: Weight 146 / Not Juany betic / Order in EPIC / DX: Dx: Recurrent breast cancer, right (HCC) [C50.911]; Personal history of breast cancer [Z85.3] COMBO NM/ CT Start: 06-19-2024 Subsequent hospital visit by physician [facility] Comment on above: Arrived Recurrent breast can cer, right (HCC) [C50.911] Start: 06-07-2024 End: 06-07-2024 Patient encounter procedure General Surgery Comment on above: NEW BREAST CANCER PE R EMAIL 2ND LOOK US Start: 06-01-2024 End: 06-01-2024 Patient encounter procedure 06/01/2024 8:00 AM EST Appointment Radiology [address] [place] [address] Breast disorder [N64.9] Radiology Comment on above: Breast disorder [N64 .9] Start: 05-31-2024 End: 05-31-2024 ambulatory 05/31/2024 10:10 AM EST Visit (SP) Office Hematology/Oncology [address] [place] [address] Jay Faust DO [address] [facility] [place] [address] HARDNESS INSPECTOR/INVASIVE MAMMARY CARCINOMA/REF DR. ADAM HEWITT*This date and time per patient Hematology/Oncology Comment on above: HARDNESS INSPECTOR/INVASIVE MAMMARY CARCINOMA/REF DR. 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 [Z15.01, Z15.89, Z15.09, Z15.02]; S/P bilateral mastectomy [Z90.13]; Chest wall mass [R22.2] Mammography Comment on above: History of bilateral breast cancer [Z85.3]; S/P bilateral breast implants [Z98.82]; 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 [Z15.01, Z15.89, Z15.09, Z15.02]; S/P bilateral mastectomy [Z90.13]; Chest wall mass [R22.2] Start: 12-18-2023 Covid-19 Vaccine ( season) Covid-19 Vaccine ( season) [facility] Start: 12-18-2023 Covid-19 Vaccine () Covid-19 Vaccine () [facility] Start: 12-18-2023 Influenza vaccination C [facility] Start: 04-18-2023 Behavioral Health Screening Behavioral Health Screening [facility] Start: 2023 Pneumococcal Vaccine : 50+ (2 of 2 - PCV) Pneumococcal Vaccine: 50+ (2 of 2 - PCV) [facility] Start: 2023 Shingrix Vaccine (1 of 2) Shingrix Vaccine (1 of 2) [facility] Start: 12-17-2022 Covid-19 Vaccine ( season) Covid-19 Vaccine ( season) [facility] Start: 12-17-2022 Influenza vaccination INFLUENZ A (Season Ended) [facility] Start: 07-08-2022 DIABETES SCREEN DIABETES SCREEN [facility] Start: 07-08-2022 Diabetes Screening Diabetes Screenin g [facility] Start: 04-18-2022 DEPRESSION ASSESSMENT DEPRESSION ASS [facility] Start: 12-17-2021 Influenza vaccination C [facility] Start: 10-06-2021 Patient discharge [facility] Work Phone: Start: 04-18-2021 DEPRESSION ASSESSMENT DEPRESSION ASS ESSMENT [facility] Start: 08-04-2020 Lipid panel Lipid Screening [facility] Start: 08-04-2020 LIPID SCREEN LIPID SCREEN [facility] Start: 10-31-2019 PAP TESTING PAP TESTING [facility] Start: 10-31-2019 Screening for malign ant neoplasm of cervix [facility] Start: 07-09-2018 HPV TESTING HPV TESTING [facility] Start: 07-09-2018 Screening for malign ant neoplasm of cervix HPV Testing [facility] Start: 2018 COLOGUARD (FIT-DNA) COLOGUARD (FIT-D NA) [facility] Start: 2018 Colonoscopy COLONOSCOPY [facility] Start: 2018 COLORECTAL CANCER SCREENING COLORECTAL CANCER SCREENING [facility] Start: [address] COLONOGRAPHY [facility] Start: 2018 FECAL OCCULT BLOOD FECAL OCCULT BLOO D [facility] Start: 2018 Screening for malign ant neoplasm of colon [facility] Start: 2018 SIGMOIDOSCOPY SIGMOIDOSCOPY [facility] Start: 10-20-2016 Mammography MAMMOGRAM [facility] Start: 10-20-2016 Screening for malign ant neoplasm of breast Mammogram Screening [facility] Start: 06-21-2014 PNEUMOCOCCAL (2 - PCV) PNEUMOCOCCAL (2 - PCV) [facility] Start: 1992 Hepatitis B Vaccine (1 of 3 - 19+ 3-dose series) Hepatitis B Vaccine (1 of 3 - 19+ 3-dose series) [facility] Start: 1991 ANNUAL PCP TEAM 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 DISEASE VISIT ANNUAL PCP TEAM CHRONIC DISEASE VISIT [facility] Start: 1991 Anxiety Screening Anxiety Screening [facility] Start: 1991 BP CONTROLLED (<130/80) BP CONTROLLE D (<130/80) [facility] Start: 1991 Depression Screening Depression Scre ening [facility] Start: 1991 HEPATITIS C SCREENING HEPATITIS C SC [facility] Start: 1991 Hepatitis C screening Hepatitis C Sc [facility] Start: 1985 Adult depression screening assessment DEPRESSION SCREENING [facility] Start: 1978 COVID-19 VACCINE (#1) COVID-19 VACCI NE (#1) [facility] Start: 1978 COVID-19 VACCINE (1) COVID-19 VACCIN E (1) [facility] Start: 1973 COVID-19 VACCINE (#1) COVID-19 VACCI NE (#1) [facility] Start: 1973 HEPATITIS B (1 of 3 - 3-dose series) HEPATITIS B (1 of 3 - 3-dose series) [facility] End: 07-07-2025 CT Abdomen and Pelvis W contrast IV CT ABD/PEL W IVCON Radiology Routine Recurrent breast cancer, right (HCC) Personal history of breast cancer 1 Occurrences starting 06/07/2024 until 07/07/2025 [facility] Work Phone: Comment on above: 1 Occurrences starti ng 06/07/2024 until 07/07/2025 End: 07-07-2025 CT Chest W contrast IV CT CHEST W IVCON Radiology Routine Recurrent breast cancer, right (HCC) Personal history of breast cancer 1 Occurrences starting 06/07/2024 until 07/07/2025 [facility] Comment on above: 1 Occurrences starti ng 06/07/2024 until 07/07/2025 CT Guidance for radiation treatment of Unspecified body region CT SIM PLANNING RADIATION ONCOLOGY Radiology Routine Malignant 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, estrogen receptor positive (HCC) Ordered: 08/03/2024 [facility] Work Phone: Comment on above: Ordered: 08/03/2024 Mastectomy partial LUMPECTOMY BR EAST Recurrent breast cancer, right (HCC) AV [facility] End: 01-27-2025 MR Breast - bilateral WO and W contrast IV MRI BREAST WO/W IVCON BILATERAL Radiology Routine History of bilateral breast cancer S/P bilateral breast implants 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 Family history of breast cancer 1 Occurrences starting 12/29/2023 until 01/27/2025 [facility] Work Phone: Comment on above: 1 Occurrences starti ng 12/29/2023 until 01/27/2025 End: 06-22-2025 MR Breast - bilateral WO and W contrast IV MRI BREAST WO/W IVCON BILATERAL Radiology Routine Breast disorder 1 Occurrences starting 05/23/2024 until 06/22/2025 [facility] Work Phone: Comment on above: 1 Occurrences starti ng 05/23/2024 until 06/22/2025 MR Breast - bilatera l WO and W contrast IV MRI BREAST WO/W IVCON BILATERAL Radiology Routine Breast disorder 06/01/2024 8:37 AM [facility] Work Phone: End: 06-22-2025 MRI BREAST 3D POST PROCESSING MRI BREAST 3D POST PROCESSING Radiology Routine Breast disorder 1 Occurrences starting 05/23/2024 until 06/22/2025 [facility] Comment on above: 1 Occurrences starti ng 05/23/2024 until 06/22/2025 MRI BREAST 3D POST PROCESSING MRI BREAST 3D POST PROCESSING Radiology Routine Breast disorder 06/01/2024 8:37 AM [facility] End: 07-07-2025 NM Whole body Bone Views NM BONE WHOLE BODY Radiology Routine Recurrent breast cancer, right (HCC) Personal history of breast cancer 1 Occurrences starting 06/07/2024 until 07/07/2025 [facility] Comment on above: 1 Occurrences starti ng 06/07/2024 until 07/07/2025 Patient Education ED Gastritis (Adult) [facility] Work Phone: Patient referral [facility] Work Phone: SURGICAL PATHOLOGY [facility] Work Phone: Comment on above: Release Upon Marianoin g for 1 Occurrences starting 05/21/2024, 1 completed End: 06-03-2025 US Breast - right limited US BREAST LTD RIGHT Radiology Routine History of bilateral breast cancer S/P bilateral breast implants 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 Chest wall mass 1 Occurrences starting 05/04/2024 until 06/03/2025 [facility] Work Phone: Comment on above: 1 Occurrences starti ng 05/04/2024 until 06/03/2025 End: 07-05-2025 US Breast - right limited US BREAST LTD RIGHT Radiology Routine Breast disorder 1 Occurrences starting 06/05/2024 until 07/05/2025 [facility] Work Phone: Comment on above: 1 Occurrences starti ng 06/05/2024 until 07/05/2025 End: 09-19-2022 Us breast uni real time with image limited US BREAST LTD LT Radiology Routine Left-sided chest wall pain History of bilateral breast cancer History of mastectomy, bilateral 1 Occurrences starting 08/20/2021 until 09/19/2022 [facility] Work Phone: Comment on above: 1 Occurrences starti ng 08/20/2021 until 09/19/2022 US Thyroid gland US THYROID/PARA THYROID Radiology Routine Nontoxic single thyroid nodule 06/20/2024 11:29 AM [facility] Work Phone: XR Cervical spine AP and Lateral and oblique XR CERV OTHER 4V AP/LAT/OBL Radiology Routine Spondylosis of cervical region without myelopathy or radiculopathy 06/20/2024 11:36 AM [facility] Work Phone: [facility] Immunizations Immunization Date Immunization Notes Care Provider Celia dodd 08-14-2014 tetanus toxoid, redu omkar diphtheria toxoid, and acellular pertussis vaccine, adsorbed Daad Markus-Dolores PA-C Work Phone: [facility] 06-21-2013 pneumococcal polysaccharide vaccine, 23 valent Daad Markus-Dolores PA-C Work Phone: [facility] 03-15-2012 influenza virus vacc ine, unspecified formulation Daad Markus-Dolores PA-C Work Phone: [facility] 03-03-2009 novel influenza-H1N1 -09, all formulations Daad Markus-Dolores PA-C Work Phone: [facility] Work Phone: 01-23-2009 influenza virus vacc ine, unspecified formulation Daad Markus-Dolores PA-C Work Phone: [facility] Work Phone: 03-04-2008 influenza virus vacc ine, unspecified formulation Daad Markus-Dolores PA-C Work Phone: [facility] 03-29-2007 influenza virus vacc ine, unspecified formulation Daad Markus-Dolores PA-C Work Phone: [facility] 08-24-2001 varicella virus vaccine Daad Markus-Dolores PA-C Work Phone: [facility] Payers Date Payer Category Payer Private Health Insurance MMO SUP ERMED PPO [id number] 2023 Self-pay [id number] 2022 Unknown [id number] 2022 Unknown [id number] 2020 Medicaid [employer] [place] [id number] 2020-Present [phone] [address] [address] [place] [address] Medicaid [id number] 2020 Medicaid [id number] 1973 Unknown [id number] 1973 Unknown [id number] Unknown [id number] Unknown [id number] Unknown [id number] Unknown [id number] Unknown [id number] Unknown [id number] Unknown [id number] Unknown [id number] Social History Date Type Detail Facility Start: 05-02-2013 End: 09-20-2023 Tobacco smoking status NHIS Never smoked tobacco [facility] Work Phone: Start: 05-02-2013 End: 09-20-2023 Tobacco use and exposure Smokeless tobacco non-user [facility] Work Phone: Start: 08-20-2021 End: 08-16-2024 Alcohol intake Current drinker of alcohol (finding) [facility] Start: 08-20-2021 End: 06-14-2024 Alcohol intake [facility] Work Phone: Start: 10-17-2019 History SDOH Alcohol Frequency 5 [facility] Start: 10-17-2019 History SDOH Alcohol Std Drinks 1 [facility] Start: 07-09-2019 History SDOH Alcohol Comment glass of wine [facility] Start: 1975 Sex Assigned At Not on file C [facility] Start: 08-10-2021 End: 08-20-2021 Exposure to SARS-CoV-2 (event) Not sure [facility] Start: 10-01-2021 End: 07-11-2023 Tobacco smoking status UTIS Unknown if ever smoked [facility] Start: 1975 Sex Assigned At Female W [facility] Start: 10-17-2019 End: 06-14-2024 Alcohol Use Disorder Identification Test - Consumption [AUDIT-C] [facility] Work Phone: How often to you hav e a drink containing alcohol? 4 or more times a week [facility] Work Phone: How many standard dr inks containing alcohol do you have on a typical day? 1 or 2 [facility] How often do you hav e 6 or more drinks on 1 occasion? Never [facility] National Score (1-10 0), lower number is lower risk 55 [facility] Start: 06-25-2024 Alcohol Comment glass of wine, 6/wee k [facility] Start: 08-16-2024 End: 09-26-2024 Tobacco smoking status NHIS Ex-smoker (finding) [facility] Medical Equipment Procedure Code Equipment Code Equipment Origin al Text Equipment Identifier Dates Exp Tiss Smth Br st 600cc Mx - [id number] Start: 07-19-2019 Smooth Round Hig h Profile Gel Filled Breast Implant 475cc [id number] Start: 11-27-2013 Smooth Round Gel Breast Implant 375cc [id number] Start: 11-27-2013 Exp Tiss 550ml Styl 9100 Txt L - [id number] Start: 06-20-2013 Imp Brst 535ml [facility] Shell - [id number] Start: 06-18-2014 Comment on above: Description: yair sher breast implant; smooth round ultra high profile. style:5000 smooth; 535cc Imp Brst 475cc S sx Dixie Inspr - [id number]_[facility] Start: 11-09-2019 Graft Skn 16x8cm Alloderm Thn - [id number]_[facility] Start: 06-20-2013 Goals Date Patient Goal Desired Activity /State Functional Status Date Assessment Result Facility 07-20-2019 Are you deaf, or do you have serious difficulty hearing No 07/20/2019 10:45 AM Roxy Faustin RN No [facility] 07-20-2019 Are you blind, or do you have serious difficulty seeing, even when wearing glasses No 07/20/2019 10:45 AM Roxy Faustin RN No [facility] 07-20-2019 Do you have serious difficulty walking or climbing stairs No 07/20/2019 10:45 AM Roxy Faustin RN No [facility] 07-20-2019 Do you have difficul ty dressing or bathing No 07/20/2019 10:45 AM Roxy Faustin RN No [facility] 07-20-2019 Because of a physica l, mental, or emotional condition, do you have difficulty doing errands alone such as visiting a physician's office or shopping Yes 07/20/2019 10:45 AM Roxy Faustin RN Yes [facility] Mental Status Date Assessment Result Facility 08-16-2024 Cognitive function Voice/Name [facility] Work Phone: 10-06-2021 Cognitive function Voice/Name [facility] Work Phone: 07-20-2019 Because of a physica l, mental, or emotional condition, do you have serious difficulty concentrating, remembering, or making decisions No 07/20/2019 10:45 AM Roxy Faustin RN No [facility] Clinical Notes 05-14-2010 to 09-20-2024 Telephone Encounter - Carol Ann Drake LPN - 09/20/2024 2:50 PM EDTTelephone Encounter - Carol Ann Drake LPN - 09/20/2024 2:50 PM EDTTelephone Encounter - Pamela Slater - 09/20/2024 11:04 AM EDT Note Date & Type Note Facility 09-20-2024 Telephone encounter Note Today's OV faxed to Dr. Andrews. Patient is aware of appointment with Dr. Andrews. Carol Ann Drake LPN [facility] 09-20-2024 Miscellaneous Notes Today's OV faxed to Dr. Andrews. Patient is aware of appointment with Dr. Andrews. Carol Ann Drake LPN I spoke with Dr. Andrews's nurse. Patient does NOT need a referral and is scheduled for an OV to discuss oophorectomy on 09/26/2024. Once completed, I will fax today's OV note to Dr. Andrews's office. . Carol Ann Drake LPN Patient called stating she spoke with Dr. Bib Dutton's office and they said they didn't receive a referral. Once they do they will triage and call. At this time 1st available would be 10/15. Patient is asking to send referral and requesting to state Urgent to get in sooner. She is willing to go to another surgeon if she can get in sooner as well. Please advise AVS 09/20 comments: Patient will send [employer] message with date of oophorectomy. Will determine follow up based on that. Debby Henao documented in this encounter [facility] 09-20-2024 Telephone encounter Note I spoke with Dr. Andrews's nurse. Patient does NOT need a referral and is scheduled for an OV to discuss oophorectomy on 09/26/2024. Once completed, I will fax today's OV note to Dr. Andrews's office. . Carol Ann Drake LPN [facility] 09-20-2024 Telephone encounter Note Patient called stating she spoke with Dr. Bib Dutton's office and they said they didn't receive a referral. Once they do they will triage and call. At this time 1st available would be 10/15. Patient is asking to send referral and requesting to state Urgent to get in sooner. She is willing to go to another surgeon if she can get in sooner as well. Please advise [facility] 09-20-2024 Telephone encounter Note AVS 09/20 comments: Patient will send DeLille Cellarst message with date of oophorectomy. Will determine follow up based on that. Debby Henao [facility] 09-20-2024 Note HNO ID: [id number] Author: JAY FAUST, DO Service: ? Author Type: Physician Type: Progress Notes Filed: 09/20/2024 11:11 Note Text: Oncologic problem(s): 1) Recurrent breast cancer. HPI: The patient is a 49 yo female who was diagnosed with a stage I (pT1a, N0) right breast cancer in 2013 following an abnormality found on her initial screening mammogram. Underwent a right-sided mastectomy along with sentinel lymph node biopsy on 06/20/2013. Pathology: A) SENTINEL LYMPH NODE #1, EXCISION: - One lymph node, negative for carcinoma (0/1). B) SENTINEL LYMPH NODE #2, EXCISION: - One lymph node, negative for carcinoma (0/1). C) SENTINEL LYMPH NODE #3, EXCISION: - One lymph node, negative for carcinoma (0/1). D) DISTAL TISSUE UNDER NIPPLE, RIGHT BREAST, EXCISION: - Negative for carcinoma. E) RIGHT BREAST, NIPPLE SPARING MASTECTOMY: - Invasive ductal carcinoma. - Ductal carcinoma in situ, nuclear grade 2, solid and cribriform types. - Changes consistent with prior biopsy site. - Surgical margins of resection are negative for carcinoma or carcinoma in situ. - See comment. COMMENT An immunohistochemical stain for p63 is negative in the focus of invasive carcinoma supporting the above diagnosis. BREAST (INVASIVE CARCINOMA) SYNOPTIC REPORT PROCEDURE: Total mastectomy (nipple sparing) LYMPH NODE SAMPLING: Gilson lymph nodes SPECIMEN LATERALITY: Right HISTOLOGIC TYPE OF INVASIVE CARCINOMA: Invasive ductal carcinoma TUMOR SIZE (GREATEST DIMENSION OF LARGEST FOCUS OF INVASION GREATER THAN 1 MM): 1.1 mm LIBERTY HISTOLOGIC GRADE: Grade 1 - GLANDULAR/TUBULAR DIFFERENTIATION: Score 1 - NUCLEAR PLEOMORPHISM: Score 2 - MITOTIC RATE: Score 2 TUMOR FOCALITY: Single focus of invasive carcinoma DUCTAL CARCINOMA IN SITU (DCIS): Present MACROSCOPIC/MICROSCOPIC EXTENT OF TUMOR: - Skin: Uninvolved by invasive carcinoma or carcinoma in situ MARGINS: Margins uninvolved by invasive carcinoma - - Distance of invasive carcinoma from closest margin: 9 mm from the anterior radial margin MARGINS: Margins uninvolved by DCIS - - Distance of DCIS from closest margin: 6 mm from the anterior radial margin LYMPH NODES: - Number of sentinel lymph nodes examined: 3 - Total number of lymph nodes examined (sentinel and non-sentinel): 3 - - Number of lymph nodes with macrometastasis: 0 - - Number of lymph nodes with micrometastasis: 0 - - Number of lymph nodes with isolated tumor cells: 0 LYMPH VASCULAR INVASION: Not identified PATHOLOGIC STAGING: pT1a pN0 (sn) pM - Not applicable ANCILLARY STUDIES: Previously performed, please see separate report [id number] for additional details. - Estrogen Receptors: Positive, greater than 95%; stain intensity is strong - Progesterone Receptors: Positive, 80%; stain intensity is moderate - HER2 (FISH): Not amplified She has bilateral implants. Her left implant was placed in November 2013 for symmetry and augmentation. She began tamoxifen on July 23, 2013. Stopped 05/2015 due to significant hot flashes and mood swings. OB found lump in left breast. Mammogram and US ?suggested cyst. Was referred to Dr. Garza US left breast : No prior exams were available for comparison. Ultrasound of the left breast 2 o'clock, and axilla regions was performed. Grady scale images of the real-time examination were reviewed. There is 0.9 cm x 0.6 cm x 0.9 cm lobulated mass with an indistinct margin in the left breast at 2 o'clock middle depth 5 cm from the nipple. This lobulated mass is hypoechoic. This correlates as palpated. IMPRESSION: SUSPICIOUS FINDING - BIOPSY SHOULD BE CONSIDERED The 0.9 cm x 0.6 cm x 0.9 cm lobulated mass in the left breast has a differential diagnosis of a solid mass or fat necrosis and is suspicious of malignancy. An ultrasound guided biopsy is recommended. Pathology: CORE BIOPSY OF LEFT BREAST (2 O'CLOCK, 5 CM FROM NIPPLE) - INVASIVE WELL DIFFERENTIATED MAMMARY CARCINOMA. COMMENT: The tumor has the architectural features of a lobular carcinoma with absence of tubule formation (tubule score =3) and a single file pattern of infiltration. There is grade 1 nuclear atypia and mitoses are not identified (mitotic score = 1) for a total Liberty score of 5 corresponding to a grade 1 tumor. No in situ component is identified. No vascular invasion is found to be present. Despite having the typical histologic features of invasive lobular carcinoma, an E-cadherin immunostain reveals the tumor cells to be strongly positive. This suggests that the tumor may have mixed ductal and lobular features. A cytokeratin immunostain was performed to better identify the tumor cells. This case was also reviewed by Dr. Ron Amor who agrees with the diagnosis. THERAPEUTIC MARKER ANALYSIS ER - - - - - Positive, 90%, strong diffuse staining. AK - - - - - Positive, 80%, strong diffuse staining. HER2- - - -Interpretation: NEGATIVE for (more content not included)... [facility] 09-20-2024 History of Present illness Narrative Oncologic problem(s): 1) Recurrent breast cancer. HPI: The patient is a 49 yo female who was diagnosed with a stage I (pT1a, N0) right breast cancer in 2013 following an abnormality found on her initial screening mammogram. Underwent a right-sided mastectomy along with sentinel lymph node biopsy on 06/20/2013. Pathology: A) SENTINEL LYMPH NODE #1, EXCISION: - One lymph node, negative for carcinoma (0/1). B) SENTINEL LYMPH NODE #2, EXCISION: - One lymph node, negative for carcinoma (0/1). C) SENTINEL LYMPH NODE #3, EXCISION: - One lymph node, negative for carcinoma (0/1). D) DISTAL TISSUE UNDER NIPPLE, RIGHT BREAST, EXCISION: - Negative for carcinoma. E) RIGHT BREAST, NIPPLE SPARING MASTECTOMY: - Invasive ductal carcinoma. - Ductal carcinoma in situ, nuclear grade 2, solid and cribriform types. - Changes consistent with prior biopsy site. - Surgical margins of resection are negative for carcinoma or carcinoma in situ. - See comment. COMMENT An immunohistochemical stain for p63 is negative in the focus of invasive carcinoma supporting the above diagnosis. BREAST (INVASIVE CARCINOMA) SYNOPTIC REPORT PROCEDURE: Total mastectomy (nipple sparing) LYMPH NODE SAMPLING: Gilson lymph nodes SPECIMEN LATERALITY: Right HISTOLOGIC TYPE OF INVASIVE CARCINOMA: Invasive ductal carcinoma TUMOR SIZE (GREATEST DIMENSION OF LARGEST FOCUS OF INVASION GREATER THAN 1 MM): 1.1 mm LIBERTY HISTOLOGIC GRADE: Grade 1 - GLANDULAR/TUBULAR DIFFERENTIATION: Score 1 - NUCLEAR PLEOMORPHISM: Score 2 - MITOTIC RATE: Score 2 TUMOR FOCALITY: Single focus of invasive carcinoma DUCTAL CARCINOMA IN SITU (DCIS): Present MACROSCOPIC/MICROSCOPIC EXTENT OF TUMOR: - Skin: Uninvolved by invasive carcinoma or carcinoma in situ MARGINS: Margins uninvolved by invasive carcinoma - - Distance of invasive carcinoma from closest margin: 9 mm from the anterior radial margin MARGINS: Margins uninvolved by DCIS - - Distance of DCIS from closest margin: 6 mm from the anterior radial margin LYMPH NODES: - Number of sentinel lymph nodes examined: 3 - Total number of lymph nodes examined (sentinel and non-sentinel): 3 - - Number of lymph nodes with macrometastasis: 0 - - Number of lymph nodes with micrometastasis: 0 - - Number of lymph nodes with isolated tumor cells: 0 LYMPH VASCULAR INVASION: Not identified PATHOLOGIC STAGING: pT1a pN0 (sn) pM - Not applicable ANCILLARY STUDIES: Previously performed, please see separate report [id number] for additional details. - Estrogen Receptors: Positive, greater than 95%; stain intensity is strong - Progesterone Receptors: Positive, 80%; stain intensity is moderate - HER2 (FISH): Not amplified She has bilateral implants. Her left implant was placed in November 2013 for symmetry and augmentation. She began tamoxifen on July 23, 2013. Stopped 05/2015 due to significant hot flashes and mood swings. OB found lump in left breast. Mammogram and US ?suggested cyst. Was referred to Dr. Garza US left breast : No prior exams were available for comparison. Ultrasound of the left breast 2 o'clock, and axilla regions was performed. Grady scale images of the real-time examination were reviewed. There is 0.9 cm x 0.6 cm x 0.9 cm lobulated mass with an indistinct margin in the left breast at 2 o'clock middle depth 5 cm from the nipple. This lobulated mass is hypoechoic. This correlates as palpated. IMPRESSION: SUSPICIOUS FINDING - BIOPSY SHOULD BE CONSIDERED The 0.9 cm x 0.6 cm x 0.9 cm lobulated mass in the left breast has a differential diagnosis of a solid mass or fat necrosis and is suspicious of malignancy. An ultrasound guided biopsy is recommended. Pathology: CORE BIOPSY OF LEFT BREAST (2 O'CLOCK, 5 CM FROM NIPPLE) - INVASIVE WELL DIFFERENTIATED MAMMARY CARCINOMA. COMMENT: The tumor has the architectural features of a lobular carcinoma with absence of tubule formation (tubule score =3) and a single file pattern of infiltration. There is grade 1 nuclear atypia and mitoses are not identified (mitotic score = 1) for a total Carpenter score of 5 corresponding to a grade 1 tumor. No in situ component is identified. No vascular invasion is found to be present. Despite having the typical histologic features of invasive lobular carcinoma, an E-cadherin immunostain reveals the tumor cells to be strongly positive. This suggests that the tumor may have mixed ductal and lobular features. A cytokeratin immunostain was performed to better identify the tumor cells. This case was also reviewed by Dr. Ron Amor who agrees with the diagnosis. THERAPEUTIC MARKER ANALYSIS ER - - - - - Positive, 90%, strong diffuse staining. AK - - - - - Positive, 80%, strong diffuse staining. HER2- - - -Interpretation: NEGATIVE for HER2 (ERBB2) Expression Score: 0 Underwent a left-sided simple mastectomy along with sentinel lymph node biopsy and complete axillary lymphadenectomy along with immediate breast reconstruction with use of tissue contact person on 07/19/2019. Pathology: FINAL DIAGNOSIS 1. Left sentinel lymph node 1, sentinel node biopsy (A) - One lymph node, negative for metastatic malignancy (0/1). 2. Left sentinel lymph node 2, sentinel node biopsy (B) - Fibroadipose tissue, negative for malignancy. - No lymphoid tissue present. 3. Left sentinel lymph node 3, sentinel node biopsy (C) - One lymph node, negative for metastatic malignancy (0/1). 4. Left breast, nipple sparing mastectomy (D) - Invasive mammary carcinoma with lobular morphology, Liberty grade 1, measuring 8 mm in greatest dimension (please see comment and synoptic report). - Lobular neoplasia (atypical lobular hyperplasia/lobular carcinoma in situ), classic type. - Fibrocystic change including usual ductal hyperplasia and sclerosing adenosis. - Biopsy clip and biopsy site reparative changes identified. EDK/MAP 07/23/2019 COMMENT Per EPIC review, an E-cadherin immunohistochemical stain was performed on the prior core needle biopsy that was interpreted at [facility]. Per report, this stain showed retained expression within the invasive carcinoma. That said, the morphology of the above invasive mammary carcinoma includes single cells arranged in linear arrays, a targetoid distribution around benign epithelial elements and tumor cells with rare foci of intracytoplasmic mucin. Each of these histologic features is typical of invasive lobular carcinoma. The literature supports that a subset (up to 10%) of invasive lobular carcinomas may show aberrant expression of E-cadherin. As such, the above carcinoma is most in keeping with an invasive lobular carcinoma. SYNOPTIC REPORT OF [facility] PATHOLOGIC FINDINGS LEFT BREAST: BREAST INVASIVE CARCINOMA WORKSHEET Part: A, C and D Procedure: Total mastectomy (including nipple-sparing and skin-sparing mastectomy) Specimen Laterality: Left Tumor size: Size of largest invasive carcinoma: Greatest dimension of largest focus of invasion >1 mm: 8 mm Tumor Focality: Single focus of invasive carcinoma Histologic Type of Invasive Carcinoma: Invasive lobular carcinoma Histologic Grade: Glandular (Acinar) / Tubular Differentiation: Score 3 Nuclear Pleomorphism: Score 1 Mitotic Rate: Score 1 (<=3 mitosis per mm2) Overall Grade: Grade I Ductal Carcinoma In Situ: No DCIS is present in specimen Tumor Extension: Skin: Uninvolved Nipple: Not applicable Skeletal muscle: Not applicable Invasive Carcinoma Margins: Margins uninvolved by invasive carcinoma Distance from closest margin: 4 mm Closest margin: Superior radial Distance of invasive carcinoma to deep margin: 4 mm DCIS Margins: No DCIS in specimen Lymph Nodes: Uninvolved by tumor cells Number of lymph nodes examined: 2 Number of sentinel lymph nodes examined: 2 Treatment Effect: No known presurgical therapy Lymph-Vascular Invasion: Not identified Pathologic Stage Classification (pTNM,AJCC 8th ed) TNM Descriptor(s): Not applicable Primary Tumor (Invasive Carcinoma) (pT): pT1b Regional Lymph Nodes (pN): Modifier: (sn): Gilson node(s) evaluated Category (pN): pN0 Distant metastasis: Distant Metastasis (pM) Not applicable/Not confirmed pathologically in this case Estrogen & progesterone receptors: Previously performed and reported as follows: Estrogen receptor: Positive (90%, strong) Progesterone receptor: Positive (80%, strong) Specimen number #: [facility] [id number] (HER2) ERBB2 Status: Previously performed and reported as follows: HER2:Negative (0) Last seen here 10/08/2019 and was reportedly taking tamoxifen. Per Radha Christianson's note 05/04/2024: 10/2019 she had a TE exchange for a permanent smooth round silicone retropectoral implant by Dr. Chirinos. Oncotype RS was 14 corresponding to a 4% risk of distant recurrence at 10 years; thus chemotherapy was not recommended. She started Tamoxifen in 07/2019 and then stopped it in early 2020 due to side effects again. She is not interested in going back on any type of medication. She has not seen Med/Onc Dr. Faust since 2019. She reports that she was advised there isn't a significant benefit of taking Tamoxifen following mastectomies. 05/2013 Cara Ramirez's clinical Integrated [facility]AC[facility] was negative for a deleterious mutation. 04/2021 she returned for panel testing at [facility]. She shared the results with me which were uploaded into the chart. 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 Didn't follow up here after 09/2019. 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 Appreciated lump right upper inner breast early April 2024. US 05/14/2024: IMPRESSION: 1.2 cm mass with indistinct margins in the right breast at 2:00, which is at moderate suspicion for malignancy. Ultrasound-guided biopsy is recommended. US guided biopsy 05/26/2024. Pathology: A: Breast, right, 2:00, 8 cmfn, 1.3 cm mass, ultrasound-guided biopsy with zipper setter chainstitch reflector placement: - Invasive mammary carcinoma, provisional [place] grade 2, measuring at least 3 mm in greatest dimension. This addendum is to report results of immunohistochemical studies with no changes in the final interpretation. Immunohistochemical studies confirm the carcinoma cells display predominantly intact membranous expression of E-cadherin and [id number], supporting ductal phenotype. ER positive (greater than 90% with strong staining intensity) AK positive (50% with moderate staining intensity). HER2 IHC 1+. Tumor grade is 2. Menses have been regular, but most recent was about 2 weeks late. Starting last summer has had heavier menstrual bleeding. Seeing Dr. Andrews. Presents for ongoing oncologic management. Interim history: Completed radiation 09/18/2024. Had a period in August. No complaints today. Tolerated radiation well. 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 Raynaud phenomenon Rotator cuff strain rehab treatment finish 12/2012 Urinary calculus, unspecified 02/2010, 05/2019 ESWL Varicose veins of other sites PAST SURGICAL HISTORY Procedure Laterality Date BIOPSY BREAST 05/2013 right breast BREAST AUGMENTATION W/PROSTHETIC IMPLANT s/p R mastectomy; new implant 06/2014 COLPOSCOPY CERVIX UPPER/ADJACENT VAGINA 08/15/2006 Colposcopy EXC/DSTRJ LINGUAL TONSIL ANY METHOD SPX INSERT INTRAUTERINE DEVICE 05/14/2010 mirena , REMOVED IUD REMOVAL 07/06/2012 LITHOTRIPSY XTRCORP SHOCK WAVE 02/2010 Lithotripsy MASTECTOMY HX Left 07/2019 MASTECTOMY, SIMPLE, COMPLETE 06/20/2013 Dr. Garza right breast with sln bx and nipple sparing REVISION OF RECONSTRUCTED BREAST 06/18/2014 ALLERGIES No Known Allergies Current Outpatient Medications Medication Sig valACYclovir (VALTREX) 1 gram tablet TAKE TWO TABLETS BY MOUTH TWICE DAILY for TWO days NEEDED for cold SORE loratadine (CLARITIN) 10 mg tablet Take 10 mg by mouth once daily. losartan (COZAAR) 25 mg tablet Take 25 mg by mouth once daily. albuterol HFA (PROAIR HFA) 90 mcg/actuation inhaler inhale 1 puff by mouth every 4 hours as needed for wheezing/shortnessof breath. as directed fluticasone (FLONASE) 50 mcg/actuation nasal spray Use 1 [place] in each nostril daily at bedtime. pantoprazole sodium (PROTONIX ORAL) Take by mouth. stomach upset after Augemntin per ER is improving (Patient not taking: Reported on 09/20/2024) predniSONE (DELTASONE) 20 mg tablet Take 2 tablets by mouth once daily. (Patient not taking: Reported on 09/20/2024) amoxicillin-clavulanate potassium (AUGMENTIN) 875-125 mg per tablet Take 1 tablet by mouth every 12 hours. No current facility-administered medications for this visit. Social History Tobacco Use Smoking status: Never Smokeless tobacco: Never Vaping Use Vaping status: Never Used Substance Use Topics Alcohol use: Yes Alcohol/week: 7.0 standard drinks of alcohol Types: 7 Glasses of Wine (5oz) per week Comment: glass of wine, 6/week Drug use: Never Family History Problem Relation Age of Onset Lipids Father Prostate Cancer Father 67 Hypertension Father Hypertension Mother Lipids Mother Psychiatry Mother Skin Cancer Mother Breast Cancer Mother 75 Asthma Brother Allergies Brother Heart Brother Cancer Maternal Grandfather metastatic, exposures Breast Cancer Maternal Grandmother 50 - 59 Diabetes Maternal Grandmother Cerebral Embolism Paternal Grandfather Stroke Paternal Grandfather Breast Cancer Other Cancer Maternal Uncle Testicular Prostate Cancer Maternal Uncle Ovarian cancer No Family History Colon Cancer No Family History other (mitral valve) No Family History Uterine Cancer No Family History Pancreatic Cancer No Family History PHYSICAL EXAM: Vitals: Blood pressure 169/84, pulse 92, temperature 36.7 C (98.1 F), height 166 cm (5' 5.35), weight 66 kg (145 lb 8 oz), last menstrual period 07/22/2024, SpO2 99%. Well-appearing and in no acute distress. EYES: Sclerae are anicteric bilaterally. LYMPHATIC: There is no palpable cervical, supraclavicular or axillary adenopathy. ABDOMEN: The abdomen is nondistended. 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 ASSESSMENT/PLAN: (C50.411) Malignant neoplasm of upper-outer quadrant of right female breast (HCC) (primary encounter diagnosis) Assessment: -History of a pT1a (0.11 mm; grade 1; no ALI) pN0(sln) (3 of 3 nodes negative) Mx ER/AK positive HER-2 negative invasive ductal carcinoma of the RIGHT breast. -BRCA 1/2 negative (04/2013). -Was on tamoxifen adjuvantly for nearly 2 years. Stopped secondary to side effects of hot flashes and mood swings. -History of a pT1b pN0 M0 ER/AK positive invasive lobular carcinoma the LEFT breast. -Did not take tamoxifen--see note 07/2019. -New cT1c cN0 ER/AK positive, HER2 negative invasive ductal carcinoma of the RIGHT breast. -s/p excision. - She had a tremendously difficult time with hot flashes previously on tamoxifen and stopped after approximately 2 years of treatment for her original breast cancer. She never started it for the diagnosis of the left-sided breast cancer. - Reviewed the results of Oncotype test in detail. Based on low recurrence score, chemotherapy not indicated. We again discussed the rationale for ovarian suppression and aromatase inhibitor therapy. We discussed options of ovarian suppression including GnRH agonist, i.e. Lupron versus oophorectomy. After balanced discussion of the risks and benefits of each, she opts for oophorectomy. She has a routine visit with Dr. Andrews scheduled on 10/15. - Discussed that after she has oophorectomy, about a month later she would start anastrozole. Plan: - Will forward my note to Dr. Bib Dutton. Patient preference for bilateral oophorectomy for ovarian suppression. - I have asked the patient to send me a MyChart message as to when surgery will occur. - Once she has surgery, begin AI therapy about a month afterwards. Portions of this documentation were copied and pasted from my previous office visit note dated 07/19/2024 in order to provide a cohesive continuity of the history. The note has been reviewed and edited and updated as necessary. I spent a total of 30 minutes on the date of the service which included preparing to see the patient, [id number] patient care, completing clinical documentation, counseling and educating the patient/family/caregiver, communicating with other HCPs (not separately reported), and communicating results to the patient/family/caregiver. Jay Faust DO documented in this encounter [facility] 09-18-2024 Note HNO ID: [id number] Author: ITA TAYLOR RN Service: ? Author Type: Registered Nurse Type: Progress Notes Filed: 09/18/2024 10:17 Note Text: Written discharge instructions given and reviewed with patient. Patient verbalizes understanding. Encouraged to call with any questions or concerns. Instruction for 4 week phone call follow up appointment given by Dr. Temple. [facility] 09-18-2024 History of Present illness Narrative Written discharge instructions given and reviewed with patient. Patient verbalizes understanding. Encouraged to call with any questions or concerns. Instruction for 4 week phone call follow up appointment given by Dr. Temple. documented in this encounter [facility] 09-18-2024 Note Education (BERNARD) CARA SINGH ([id number]) 1975 F Date Time Provider Department 09/18/24 JEANNA TEMPLE Reason for Visit: Patient Education [91] During your visit today, we recorded the following information about you: Allergies As of Date: 09/18/2024 (No Known Allergies) Date Reviewed: 09/12/2024 Reviewed by: Layne King RN - Fully Assessed Prescriptions as of 09/18/2024 - pantoprazole sodium (PROTONIX ORAL) Take by mouth. stomach upset after Augemntin per ER is improving - amoxicillin/potassium clav (AUGMENTIN ORAL) Take by mouth. - predniSONE (DELTASONE) 20 mg tablet Take 2 tablets by mouth once daily. - amoxicillin-clavulanate potassium (AUGMENTIN) 875-125 mg per tablet Take 1 tablet by mouth every 12 hours. - valACYclovir (VALTREX) 1 gram tablet TAKE TWO TABLETS BY MOUTH TWICE DAILY for TWO days NEEDED for cold SORE - loratadine (CLARITIN) 10 mg tablet Take 10 mg by mouth once daily. - losartan (COZAAR) 25 mg tablet Take 25 mg by mouth once daily. - albuterol HFA (PROAIR HFA) 90 mcg/actuation inhaler inhale 1 puff by mouth every 4 hours as needed for wheezing/shortnessof breath. as directed - fluticasone (FLONASE) 50 mcg/actuation nasal spray Use 1 [place] in each nostril daily at bedtime. Encounter Status:Closed by ITA TAYLOR on 09/18/24 [facility] 09-12-2024 Note HNO ID: [id number] Author: JEANNA TEMPLE MD Service: ? Author Type: Physician Type: Progress Notes Filed: 09/12/2024 10:11 Note Text: Radiation Oncology - On Treatment Review (OTR) Note PATIENT NAME: Cara Singh PATIENT DIAGNOSIS: Local only recurrence of right breast cancer s/p local excision on 07/06/24. History of stage I, pT1a pN0 (sn), grade 1 invasive ductal carcinoma of the right breast in 2013 treated with right mastectomy and sentinel node biopsy 06/20/13 and then bilateral breast implants. Also h/o stage I, pT1b pN0, grade 1 invasive lobular carcinoma of the left breast in 2019 treated with left mastectomy and axillary node dissection on 07/19/19. COURSE: post-operative AREA TREATED: Right chest wall/IM/SC/axilla CURRENT DOSE: 5200 cGy in 26 fx PLANNED DOSE: 6000 cGy in 30 fx Status: Patient states there is no possibility she is at this time SUBJECTIVE: She has mild pruritus. EXAM: KPS: 90 General Appearance: Alert and oriented. No acute distress. Radiation dermatitis: Moderate IMAGING/LAB RESULTS: None Treatment chart checked: Yes Patient treatment site reviewed and verified:Yes Port films reviewed and current:Yes Medications started: None ASSESSMENT/PLAN: Clinically stable. Toxicity within expected parameters. Continue radiation treatment as planned. Jeanna Temple MD [facility] 09-12-2024 History of Present illness Narrative Radiation Oncology - On Treatment Review (OTR) Note PATIENT NAME: Cara Singh PATIENT DIAGNOSIS: Local only recurrence of right breast cancer s/p local excision on 07/06/24. History of stage I, pT1a pN0 (sn), grade 1 invasive ductal carcinoma of the right breast in 2013 treated with right mastectomy and sentinel node biopsy 06/20/13 and then bilateral breast implants. Also h/o stage I, pT1b pN0, grade 1 invasive lobular carcinoma of the left breast in 2019 treated with left mastectomy and axillary node dissection on 07/19/19. COURSE: post-operative AREA TREATED: Right chest wall/IM/SC/axilla CURRENT DOSE: 5200 cGy in 26 fx PLANNED DOSE: 6000 cGy in 30 fx Status: Patient states there is no possibility she is at this time SUBJECTIVE: She has mild pruritus. EXAM: KPS: 90 General Appearance: Alert and oriented. No acute distress. Radiation dermatitis: Moderate IMAGING/LAB RESULTS: None Treatment chart checked: Yes Patient treatment site reviewed and verified:Yes Port films reviewed and current:Yes Medications started: None ASSESSMENT/PLAN: Clinically stable. Toxicity within expected parameters. Continue radiation treatment as planned. Jeanna Temple MD Radiation Therapy - Nursing Note (OTV) PATIENT NAME: Cara Singh PATIENT September 12, 2024 [facility] FACILITY/LOCATION: [place] NURSING NOTE TYPE: BREAST Subjective Data Feel good Additional Data Do you want to see a Spool Tender? No Status: Patient states there is no possibility she is at this time. Stress Scale: On a scale of 0 to 10, what number best describes how much distress you have experienced in the past week?(0 being no distress and 10 being extreme distress) 1 Social work notified: Pt denied need to see social services aide at this time. Nursing Assessment Fatigue: none Appetite: good Nutritional Intake: Regular oral intake. Weight Gain/Loss: Not applicable Ambulatory weight history: Last 6 Encounter Wt Readings: Date: Wt: 08/16/2024 65.9 kg (145 lb 4.5 oz) 07/26/2024 66.9 kg (147 lb 7.8 oz) 07/19/2024 66.2 kg (146 lb) 06/25/2024 65.8 kg (145 lb) 06/20/2024 65.8 kg (145 lb) 06/07/2024 66.6 kg (146 lb 13.2 oz) Nausea:None Vomiting: None Bowel Function: normal bowel movements Erythema/Hyperpigmentation:none Desquamation:none Rash:none Skin Care: Aquaphor Skin Sensation: mild itching and mild burning Focused Assessment BREAST: Not applicable. SIGNED by: Layne King RN documented in this encounter [facility] 09-12-2024 Note HNO ID: [id number] Author: LAYNE KING RN Service: ? Author Type: Registered Nurse Type: Progress Notes Filed: 09/12/2024 10:11 Note Text: Radiation Therapy - Nursing Note (OTV) PATIENT NAME: Cara Singh PATIENT September 12, 2024 [facility] FACILITY/LOCATION: [facility] NOTE TYPE: BREAST Subjective Data Feel good Additional Data Do you want to see a Spool Tender? No Status: Patient states there is no possibility she is at this time. Stress Scale: On a scale of 0 to 10, what number best describes how much distress you have experienced in the past week?(0 being no distress and 10 being extreme distress) 1 Social work notified: Pt denied need to see social services aide at this time. Nursing Assessment Fatigue: none Appetite: good Nutritional Intake: Regular oral intake. Weight Gain/Loss: Not applicable Ambulatory weight history: Last 6 Encounter Wt Readings: Date: Wt: 08/16/2024 65.9 kg (145 lb 4.5 oz) 07/26/2024 66.9 kg (147 lb 7.8 oz) 07/19/2024 66.2 kg (146 lb) 06/25/2024 65.8 kg (145 lb) 06/20/2024 65.8 kg (145 lb) 06/07/2024 66.6 kg (146 lb 13.2 oz) Nausea:None Vomiting: None Bowel Function: normal bowel movements Erythema/Hyperpigmentation:none Desquamation:none Rash:none Skin Care: Aquaphor Skin Sensation: mild itching and mild burning Focused Assessment BREAST: Not applicable. SIGNED by: Layne King RN [facility] 09-04-2024 Note HNO ID: [id number] Author: JEANNA TEMPLE MD Service: ? Author Type: Physician Type: Progress Notes Filed: 09/04/2024 10:18 Note Text: Radiation Oncology - On Treatment Review (OTR) Note PATIENT NAME: Cara Singh PATIENT DIAGNOSIS: Local only recurrence of right breast cancer s/p local excision on 07/06/24. History of stage I, pT1a pN0 (sn), grade 1 invasive ductal carcinoma of the right breast in 2013 treated with right mastectomy and sentinel node biopsy 06/20/13 and then bilateral breast implants. Also h/o stage I, pT1b pN0, grade 1 invasive lobular carcinoma of the left breast in 2019 treated with left mastectomy and axillary node dissection on 07/19/19. COURSE: post-operative AREA TREATED: Right chest wall/IM/SC/axilla CURRENT DOSE: 4400 cGy in 22 fx PLANNED DOSE: 6000 cGy in 30 fx Status: Patient states there is no possibility she is at this time SUBJECTIVE: She has mild tenderness and pruritus. EXAM: KPS: 90 General Appearance: Alert and oriented. No acute distress. Radiation dermatitis: Moderate IMAGING/LAB RESULTS: None Treatment chart checked: Yes Patient treatment site reviewed and verified:Yes Port films reviewed and current:Yes Medications started: None ASSESSMENT/PLAN: Clinically stable. toxicity within expected parameters. Continue radiation treatment as planned. Jeanna Temple MD [facility] 09-04-2024 Note HNO ID: [id number] Author: ITA TAYLOR RN Service: ? Author Type: Registered Nurse Type: Progress Notes Filed: 09/04/2024 10:18 Note Text: Radiation Therapy - Nursing Note (OTV) PATIENT NAME: Cara Singh PATIENT September 04, 2024 [facility] FACILITY/LOCATION: [facility] NOTE TYPE: BREAST Subjective Data Has a concern about area above scar that she feels is thicker or swollen Additional Data Do you want to see a Spool Tender? No Status: Patient states there is no possibility she is at this time. Stress Scale: On a scale of 0 to 10, what number best describes how much distress you have experienced in the past week?(0 being no distress and 10 being extreme distress) 1 Social work notified: Pt denied need to see social services aide at this time. Nursing Assessment Fatigue: increased fatigue over baseline but not altering normal activities Appetite: good Nutritional Intake: Regular oral intake. Weight Gain/Loss: Not applicable Ambulatory weight history: Last 6 Encounter Wt Readings: Date: Wt: 08/16/2024 65.9 kg (145 lb 4.5 oz) 07/26/2024 66.9 kg (147 lb 7.8 oz) 07/19/2024 66.2 kg (146 lb) 06/25/2024 65.8 kg (145 lb) 06/20/2024 65.8 kg (145 lb) 06/07/2024 66.6 kg (146 lb 13.2 oz) Nausea:None Vomiting: None Bowel Function: normal bowel movements Erythema/Hyperpigmentation:moderat e Desquamation:none Rash:none Skin Care: Aquaphor Skin Sensation: mild to moderate varies itching Focused Assessment BREAST: Lymphedema Assessment: Is the patient noting any swelling? No. SIGNED by: Ita Taylor RN [facility] 08-28-2024 Note HNO ID: [id number] Author: ITA TAYLOR RN Service: ? Author Type: Registered Nurse Type: Progress Notes Filed: 08/28/2024 10:19 Note Text: Radiation Therapy - Nursing Note (OTV) PATIENT NAME: Cara Singh PATIENT August 28, 2024 [facility] FACILITY/LOCATION: [facility] NOTE TYPE: BREAST Subjective Data some tenderness around scar Additional Data Do you want to see a Spool Tender? No Status: Patient states there is no possibility she is at this time. Stress Scale: On a scale of 0 to 10, what number best describes how much distress you have experienced in the past week?(0 being no distress and 10 being extreme distress) 1 Social work notified: Pt denied need to see social services aide at this time. Nursing Assessment Fatigue: increased fatigue over baseline but not altering normal activities Appetite: good Nutritional Intake: Regular oral intake. Weight Gain/Loss: Not applicable Ambulatory weight history: Last 6 Encounter Wt Readings: Date: Wt: 08/16/2024 65.9 kg (145 lb 4.5 oz) 07/26/2024 66.9 kg (147 lb 7.8 oz) 07/19/2024 66.2 kg (146 lb) 06/25/2024 65.8 kg (145 lb) 06/20/2024 65.8 kg (145 lb) 06/07/2024 66.6 kg (146 lb 13.2 oz) Nausea:None Vomiting: None Bowel Function: normal bowel movements Erythema/Hyperpigmentation:moderat e Desquamation:none Rash:none Skin Care: Aquaphor Skin Sensation: mild itching and mild burning Focused Assessment BREAST: Lymphedema Assessment: Is the patient noting any swelling? No. SIGNED by: Ita Taylor RN [facility] 08-28-2024 History of Present illness Narrative Radiation Therapy - Nursing Note (OTV) PATIENT NAME: Cara Singh PATIENT August 28, 2024 [facility] FACILITY/LOCATION: [facility] NOTE TYPE: BREAST Subjective Data some tenderness around scar Additional Data Do you want to see a Spool Tender? No Status: Patient states there is no possibility she is at this time. Stress Scale: On a scale of 0 to 10, what number best describes how much distress you have experienced in the past week?(0 being no distress and 10 being extreme distress) 1 Social work notified: Pt denied need to see social services aide at this time. Nursing Assessment Fatigue: increased fatigue over baseline but not altering normal activities Appetite: good Nutritional Intake: Regular oral intake. Weight Gain/Loss: Not applicable Ambulatory weight history: Last 6 Encounter Wt Readings: Date: Wt: 08/16/2024 65.9 kg (145 lb 4.5 oz) 07/26/2024 66.9 kg (147 lb 7.8 oz) 07/19/2024 66.2 kg (146 lb) 06/25/2024 65.8 kg (145 lb) 06/20/2024 65.8 kg (145 lb) 06/07/2024 66.6 kg (146 lb 13.2 oz) Nausea:None Vomiting: None Bowel Function: normal bowel movements Erythema/Hyperpigmentation:moderat e Desquamation:none Rash:none Skin Care: Aquaphor Skin Sensation: mild itching and mild burning Focused Assessment BREAST: Lymphedema Assessment: Is the patient noting any swelling? No. SIGNED by: Ita Taylor RN Radiation Oncology - On Treatment Review (OTR) Note PATIENT NAME: Cara Singh PATIENT DIAGNOSIS: Local only recurrence of right breast cancer s/p local excision on 07/06/24. History of stage I, pT1a pN0 (sn), grade 1 invasive ductal carcinoma of the right breast in 2013 treated with right mastectomy and sentinel node biopsy 06/20/13 and then bilateral breast implants. Also h/o stage I, pT1b pN0, grade 1 invasive lobular carcinoma of the left breast in 2019 treated with left mastectomy and axillary node dissection on 07/19/19. COURSE: post-operative AREA TREATED: Right chest wall/IM/SC/axilla CURRENT DOSE: 3400 cGy in 17 fx PLANNED DOSE: 6000 cGy in 30 fx Status: Patient states there is no possibility she is at this time SUBJECTIVE: She has mild tenderness. EXAM: KPS: 90 General Appearance: Alert and oriented. No acute distress. Radiation dermatitis: Moderate IMAGING/LAB RESULTS: None Treatment chart checked: Yes Patient treatment site reviewed and verified:Yes Port films reviewed and current:Yes Medications started: None ASSESSMENT/PLAN: Clinically stable. toxicity within expected parameters. Continue radiation treatment as planned. Jeanna Temple MD documented in this encounter [facility] 08-28-2024 Note HNO ID: [id number] Author: JEANNA TEMPLE MD Service: ? Author Type: Physician Type: Progress Notes Filed: 08/28/2024 10:19 Note Text: Radiation Oncology - On Treatment Review (OTR) Note PATIENT NAME: Cara Singh PATIENT DIAGNOSIS: Local only recurrence of right breast cancer s/p local excision on 07/06/24. History of stage I, pT1a pN0 (sn), grade 1 invasive ductal carcinoma of the right breast in 2013 treated with right mastectomy and sentinel node biopsy 06/20/13 and then bilateral breast implants. Also h/o stage I, pT1b pN0, grade 1 invasive lobular carcinoma of the left breast in 2019 treated with left mastectomy and axillary node dissection on 07/19/19. COURSE: post-operative AREA TREATED: Right chest wall/IM/SC/axilla CURRENT DOSE: 3400 cGy in 17 fx PLANNED DOSE: 6000 cGy in 30 fx Status: Patient states there is no possibility she is at this time SUBJECTIVE: She has mild tenderness. EXAM: KPS: 90 General Appearance: Alert and oriented. No acute distress. Radiation dermatitis: Moderate IMAGING/LAB RESULTS: None Treatment chart checked: Yes Patient treatment site reviewed and verified:Yes Port films reviewed and current:Yes Medications started: None ASSESSMENT/PLAN: Clinically stable. toxicity within expected parameters. Continue radiation treatment as planned. Jeanna Temple MD [facility] 08-21-2024 Note HNO ID: [id number] Author: JEANNA TEMPLE MD Service: ? Author Type: Physician Type: Progress Notes Filed: 08/21/2024 10:24 Note Text: Radiation Oncology - On Treatment Review (OTR) Note PATIENT NAME: Cara Singh PATIENT DIAGNOSIS: Local only recurrence of right breast cancer s/p local excision on 07/06/24. History of stage I, pT1a pN0 (sn), grade 1 invasive ductal carcinoma of the right breast in 2013 treated with right mastectomy and sentinel node biopsy 06/20/13 and then bilateral breast implants. Also h/o stage I, pT1b pN0, grade 1 invasive lobular carcinoma of the left breast in 2019 treated with left mastectomy and axillary node dissection on 07/19/19. COURSE: post-operative AREA TREATED: Right chest wall/IM/SC/axilla CURRENT DOSE: 2400 cGy in 12 fx PLANNED DOSE: 6000 cGy in 30 fx Status: Patient states there is no possibility she is at this time SUBJECTIVE: She has mild pruritus. EXAM: KPS: 90 General Appearance: Alert and oriented. No acute distress. Radiation dermatitis: Slight IMAGING/LAB RESULTS: None Treatment chart checked: Yes Patient treatment site reviewed and verified:Yes Port films reviewed and current:Yes Medications started: None ASSESSMENT/PLAN: Clinically stable. toxicity within expected parameters. Continue radiation treatment as planned. Jeanna Temple MD [facility] 08-21-2024 History of Present illness Narrative Radiation Oncology - On Treatment Review (OTR) Note PATIENT NAME: Cara Singh PATIENT DIAGNOSIS: Local only recurrence of right breast cancer s/p local excision on 07/06/24. History of stage I, pT1a pN0 (sn), grade 1 invasive ductal carcinoma of the right breast in 2013 treated with right mastectomy and sentinel node biopsy 06/20/13 and then bilateral breast implants. Also h/o stage I, pT1b pN0, grade 1 invasive lobular carcinoma of the left breast in 2019 treated with left mastectomy and axillary node dissection on 07/19/19. COURSE: post-operative AREA TREATED: Right chest wall/IM/SC/axilla CURRENT DOSE: 2400 cGy in 12 fx PLANNED DOSE: 6000 cGy in 30 fx Status: Patient states there is no possibility she is at this time SUBJECTIVE: She has mild pruritus. EXAM: KPS: 90 General Appearance: Alert and oriented. No acute distress. Radiation dermatitis: Slight IMAGING/LAB RESULTS: None Treatment chart checked: Yes Patient treatment site reviewed and verified:Yes Port films reviewed and current:Yes Medications started: None ASSESSMENT/PLAN: Clinically stable. toxicity within expected parameters. Continue radiation treatment as planned. Jeanna Temple MD Radiation Therapy - Nursing Note (OTV) PATIENT NAME: Cara Singh PATIENT August 21, 2024 [facility] FACILITY/LOCATION: [place] NURSING NOTE TYPE: BREAST Subjective Data it started itching last night, and some tenderness Additional Data Do you want to see a Spool Tender? No Status: Patient states there is no possibility she is at this time. Stress Scale: On a scale of 0 to 10, what number best describes how much distress you have experienced in the past week?(0 being no distress and 10 being extreme distress) 1 Social work notified: Pt denied need to see social services aide at this time. Nursing Assessment Fatigue: none Appetite: good Nutritional Intake: Regular oral intake. Weight Gain/Loss: Not applicable Ambulatory weight history: Last 6 Encounter Wt Readings: Date: Wt: 08/16/2024 65.9 kg (145 lb 4.5 oz) 07/26/2024 66.9 kg (147 lb 7.8 oz) 07/19/2024 66.2 kg (146 lb) 06/25/2024 65.8 kg (145 lb) 06/20/2024 65.8 kg (145 lb) 06/07/2024 66.6 kg (146 lb 13.2 oz) Nausea:None Vomiting: None Bowel Function: normal bowel movements Erythema/Hyperpigmentation:mild pink on chest Desquamation:none Rash:none Skin Care: Aquaphor Skin Sensation: mild itching Focused Assessment BREAST: Lymphedema Assessment: Is the patient noting any swelling? No. SIGNED by: Ita Taylor RN documented in this encounter [facility] 08-21-2024 Note HNO ID: [id number] Author: ITA TAYLOR RN Service: ? Author Type: Registered Nurse Type: Progress Notes Filed: 08/21/2024 10:24 Note Text: Radiation Therapy - Nursing Note (OTV) PATIENT NAME: Cara Singh PATIENT August 21, 2024 [facility] FACILITY/LOCATION: [facility] NOTE TYPE: BREAST Subjective Data it started itching last night, and some tenderness Additional Data Do you want to see a Spool Tender? No Status: Patient states there is no possibility she is at this time. Stress Scale: On a scale of 0 to 10, what number best describes how much distress you have experienced in the past week?(0 being no distress and 10 being extreme distress) 1 Social work notified: Pt denied need to see social services aide at this time. Nursing Assessment Fatigue: none Appetite: good Nutritional Intake: Regular oral intake. Weight Gain/Loss: Not applicable Ambulatory weight history: Last 6 Encounter Wt Readings: Date: Wt: 08/16/2024 65.9 kg (145 lb 4.5 oz) 07/26/2024 66.9 kg (147 lb 7.8 oz) 07/19/2024 66.2 kg (146 lb) 06/25/2024 65.8 kg (145 lb) 06/20/2024 65.8 kg (145 lb) 06/07/2024 66.6 kg (146 lb 13.2 oz) Nausea:None Vomiting: None Bowel Function: normal bowel movements Erythema/Hyperpigmentation:mild pink on chest Desquamation:none Rash:none Skin Care: Aquaphor Skin Sensation: mild itching Focused Assessment BREAST: Lymphedema Assessment: Is the patient noting any swelling? No. SIGNED by: Ita Taylor RN [facility] 08-16-2024 Note HNO ID: [id number] Author: LALO FLETCHER APRN.BASKET TURNER Service: ? Author Type: Nurse Practitioner Type: Progress Notes Filed: 08/16/2024 10:58 Note Text: Patient came in with complaints of worsening symptoms. Patient is on Augmentin. Patient had cough congestion sinus. Patient is now having abdominal pain. Patient says its about an 8 out of 10. Upon exam patient was extremely tender in the left upper quadrant right lower quadrant. When palpating the right lower quadrant it went to the umbilical area. At this time patient is being referred to the emergency room for more thorough evaluation due to abdominal pain. Patient was agreeable and will take her now. [facility] 08-16-2024 History of Present illness Narrative Patient came in with complaints of worsening symptoms. Patient is on Augmentin. Patient had cough congestion sinus. Patient is now having abdominal pain. Patient says its about an 8 out of 10. Upon exam patient was extremely tender in the left upper quadrant right lower quadrant. When palpating the right lower quadrant it went to the umbilical area. At this time patient is being referred to the emergency room for more thorough evaluation due to abdominal pain. Patient was agreeable and will take her now. documented in this encounter [facility] 08-14-2024 Note HNO ID: [id number] Author: ITA TAYLOR RN Service: ? Author Type: Registered Nurse Type: Progress Notes Filed: 08/14/2024 10:09 Note Text: Radiation Therapy - Nursing Note (OTV) PATIENT NAME: Cara Singh PATIENT August 14, 2024 [facility] FACILITY/LOCATION: [facility] NOTE TYPE: BREAST Subjective Data no complaints Additional Data Do you want to see a Spool Tender? No Status: Patient states there is no possibility she is at this time. Stress Scale: On a scale of 0 to 10, what number best describes how much distress you have experienced in the past week?(0 being no distress and 10 being extreme distress) 1 Social work notified: Pt denied need to see social services aide at this time. Nursing Assessment Fatigue: none Appetite: good Nutritional Intake: Regular oral intake. Weight Gain/Loss: Not applicable Ambulatory weight history: Last 6 Encounter Wt Readings: Date: Wt: 07/26/2024 66.9 kg (147 lb 7.8 oz) 07/19/2024 66.2 kg (146 lb) 06/25/2024 65.8 kg (145 lb) 06/20/2024 65.8 kg (145 lb) 06/07/2024 66.6 kg (146 lb 13.2 oz) 05/31/2024 66.2 kg (146 lb) Nausea:None Vomiting: None Bowel Function: normal bowel movements Erythema/Hyperpigmentation:none Desquamation:none Rash:none Skin Care: Aquaphor Skin Sensation: Within Normal Limits Focused Assessment BREAST: Not applicable. SIGNED by: Ita Taylor RN [facility] 08-14-2024 History of Present illness Narrative Radiation Therapy - Nursing Note (OTV) PATIENT NAME: Cara Singh PATIENT August 14, 2024 [facility] FACILITY/LOCATION: [facility] NOTE TYPE: BREAST Subjective Data no complaints Additional Data Do you want to see a Spool Tender? No Status: Patient states there is no possibility she is at this time. Stress Scale: On a scale of 0 to 10, what number best describes how much distress you have experienced in the past week?(0 being no distress and 10 being extreme distress) 1 Social work notified: Pt denied need to see social services aide at this time. Nursing Assessment Fatigue: none Appetite: good Nutritional Intake: Regular oral intake. Weight Gain/Loss: Not applicable Ambulatory weight history: Last 6 Encounter Wt Readings: Date: Wt: 07/26/2024 66.9 kg (147 lb 7.8 oz) 07/19/2024 66.2 kg (146 lb) 06/25/2024 65.8 kg (145 lb) 06/20/2024 65.8 kg (145 lb) 06/07/2024 66.6 kg (146 lb 13.2 oz) 05/31/2024 66.2 kg (146 lb) Nausea:None Vomiting: None Bowel Function: normal bowel movements Erythema/Hyperpigmentation:none Desquamation:none Rash:none Skin Care: Aquaphor Skin Sensation: Within Normal Limits Focused Assessment BREAST: Not applicable. SIGNED by: Ita Taylor RN Radiation Oncology - On Treatment Review (OTR) Note PATIENT NAME: Cara Singh PATIENT DIAGNOSIS: Local only recurrence of right breast cancer s/p local excision on 07/06/24. History of stage I, pT1a pN0 (sn), grade 1 invasive ductal carcinoma of the right breast in 2013 treated with right mastectomy and sentinel node biopsy 06/20/13 and then bilateral breast implants. Also h/o stage I, pT1b pN0, grade 1 invasive lobular carcinoma of the left breast in 2019 treated with left mastectomy and axillary node dissection on 07/19/19. COURSE: post-operative AREA TREATED: Right chest wall/IM/SC/axilla CURRENT DOSE: 1400 cGy in 7 fx PLANNED DOSE: 6000 cGy in 30 fx Status: Patient states there is no possibility she is at this time SUBJECTIVE: She is doing well without any specific new complaints. EXAM: KPS: 100 General Appearance: Alert and oriented. No acute distress. Radiation dermatitis: No IMAGING/LAB RESULTS: None Treatment chart checked: Yes Patient treatment site reviewed and verified:Yes Port films reviewed and current:Yes Medications started: None ASSESSMENT/PLAN: Clinically stable. No signs of toxicity. Continue radiation treatment as planned. Jeanna Temple MD documented in this encounter [facility] 08-14-2024 Note HNO ID: [id number] Author: JEANNA TEMPLE MD Service: ? Author Type: Physician Type: Progress Notes Filed: 08/14/2024 10:09 Note Text: Radiation Oncology - On Treatment Review (OTR) Note PATIENT NAME: Cara Singh PATIENT DIAGNOSIS: Local only recurrence of right breast cancer s/p local excision on 07/06/24. History of stage I, pT1a pN0 (sn), grade 1 invasive ductal carcinoma of the right breast in 2013 treated with right mastectomy and sentinel node biopsy 06/20/13 and then bilateral breast implants. Also h/o stage I, pT1b pN0, grade 1 invasive lobular carcinoma of the left breast in 2019 treated with left mastectomy and axillary node dissection on 07/19/19. COURSE: post-operative AREA TREATED: Right chest wall/IM/SC/axilla CURRENT DOSE: 1400 cGy in 7 fx PLANNED DOSE: 6000 cGy in 30 fx Status: Patient states there is no possibility she is at this time SUBJECTIVE: She is doing well without any specific new complaints. EXAM: KPS: 100 General Appearance: Alert and oriented. No acute distress. Radiation dermatitis: No IMAGING/LAB RESULTS: None Treatment chart checked: Yes Patient treatment site reviewed and verified:Yes Port films reviewed and current:Yes Medications started: None ASSESSMENT/PLAN: Clinically stable. No signs of toxicity. Continue radiation treatment as planned. Jeanna Temple MD [facility] 08-07-2024 Note HNO ID: [id number] Author: JEANNA TEMPLE MD Service: ? Author Type: Physician Type: Progress Notes Filed: 08/07/2024 10:34 Note Text: Radiation Oncology - On Treatment Review (OTR) Note PATIENT NAME: Cara Singh PATIENT DIAGNOSIS: Local only recurrence of right breast cancer s/p local excision on 07/06/24. History of stage I, pT1a pN0 (sn), grade 1 invasive ductal carcinoma of the right breast in 2013 treated with right mastectomy and sentinel node biopsy 06/20/13 and then bilateral breast implants. Also h/o stage I, pT1b pN0, grade 1 invasive lobular carcinoma of the left breast in 2019 treated with left mastectomy and axillary node dissection on 07/19/19. COURSE: post-operative AREA TREATED: Right chest wall/IM/SC/axilla CURRENT DOSE: 400 cGy in 2 fx PLANNED DOSE: 6000 cGy in 30 fx Status: Patient states there is no possibility she is at this time SUBJECTIVE: She is doing well without any specific new complaints. EXAM: KPS: 100 General Appearance: Alert and oriented. No acute distress. Radiation dermatitis: No IMAGING/LAB RESULTS: None Treatment chart checked: Yes Patient treatment site reviewed and verified:Yes Port films reviewed and current:Yes Medications started: None ASSESSMENT/PLAN: Clinically stable. No signs of toxicity. Continue radiation treatment as planned. Jeanna Temple MD [facility] 08-07-2024 History of Present illness Narrative Radiation Oncology - On Treatment Review (OTR) Note PATIENT NAME: Cara Singh PATIENT DIAGNOSIS: Local only recurrence of right breast cancer s/p local excision on 07/06/24. History of stage I, pT1a pN0 (sn), grade 1 invasive ductal carcinoma of the right breast in 2013 treated with right mastectomy and sentinel node biopsy 06/20/13 and then bilateral breast implants. Also h/o stage I, pT1b pN0, grade 1 invasive lobular carcinoma of the left breast in 2019 treated with left mastectomy and axillary node dissection on 07/19/19. COURSE: post-operative AREA TREATED: Right chest wall/IM/SC/axilla CURRENT DOSE: 400 cGy in 2 fx PLANNED DOSE: 6000 cGy in 30 fx Status: Patient states there is no possibility she is at this time SUBJECTIVE: She is doing well without any specific new complaints. EXAM: KPS: 100 General Appearance: Alert and oriented. No acute distress. Radiation dermatitis: No IMAGING/LAB RESULTS: None Treatment chart checked: Yes Patient treatment site reviewed and verified:Yes Port films reviewed and current:Yes Medications started: None ASSESSMENT/PLAN: Clinically stable. No signs of toxicity. Continue radiation treatment as planned. Jeanna Temple MD Radiation Therapy - Nursing Note (OTV) PATIENT NAME: Cara Singh PATIENT August 07, 2024 [facility] FACILITY/LOCATION: [facility] NOTE TYPE: BREAST Subjective Data no complaints Additional Data Do you want to see a Spool Tender? No Status: Patient states there is no possibility she is at this time. Stress Scale: On a scale of 0 to 10, what number best describes how much distress you have experienced in the past week?(0 being no distress and 10 being extreme distress) 5 Social work notified: Pt denied need to see social services aide at this time. Nursing Assessment Fatigue: none Appetite: good Nutritional Intake: Regular oral intake. Weight Gain/Loss: Not applicable Ambulatory weight history: Last 6 Encounter Wt Readings: Date: Wt: 07/26/2024 66.9 kg (147 lb 7.8 oz) 07/19/2024 66.2 kg (146 lb) 06/25/2024 65.8 kg (145 lb) 06/20/2024 65.8 kg (145 lb) 06/07/2024 66.6 kg (146 lb 13.2 oz) 05/31/2024 66.2 kg (146 lb) Nausea:None Vomiting: None Bowel Function: normal bowel movements Erythema/Hyperpigmentation:none Desquamation:none Rash:none Skin Care: Aquaphor Skin Sensation: Within Normal Limits Focused Assessment BREAST: Lymphedema Assessment: Is the patient noting any swelling? No. SIGNED by: Ita Taylor RN documented in this encounter [facility] 08-07-2024 Note HNO ID: [id number] Author: ITA TAYLOR RN Service: ? Author Type: Registered Nurse Type: Progress Notes Filed: 08/07/2024 10:34 Note Text: Radiation Therapy - Nursing Note (OTV) PATIENT NAME: Cara Singh PATIENT August 07, 2024 [facility] FACILITY/LOCATION: [place] NURSING NOTE TYPE: BREAST Subjective Data no complaints Additional Data Do you want to see a Spool Tender? No Status: Patient states there is no possibility she is at this time. Stress Scale: On a scale of 0 to 10, what number best describes how much distress you have experienced in the past week?(0 being no distress and 10 being extreme distress) 5 Social work notified: Pt denied need to see social services aide at this time. Nursing Assessment Fatigue: none Appetite: good Nutritional Intake: Regular oral intake. Weight Gain/Loss: Not applicable Ambulatory weight history: Last 6 Encounter Wt Readings: Date: Wt: 07/26/2024 66.9 kg (147 lb 7.8 oz) 07/19/2024 66.2 kg (146 lb) 06/25/2024 65.8 kg (145 lb) 06/20/2024 65.8 kg (145 lb) 06/07/2024 66.6 kg (146 lb 13.2 oz) 05/31/2024 66.2 kg (146 lb) Nausea:None Vomiting: None Bowel Function: normal bowel movements Erythema/Hyperpigmentation:none Desquamation:none Rash:none Skin Care: Aquaphor Skin Sensation: Within Normal Limits Focused Assessment BREAST: Lymphedema Assessment: Is the patient noting any swelling? No. SIGNED by: Ita Taylor RN [facility] 08-06-2024 Telephone encounter Note Patient was at the desk before radiation and is aware of the below September appointment Riya Tobin [facility] 08-06-2024 Miscellaneous Notes Patient was at the desk before radiation and is aware of the below September appointment Riya Tobin Message left for patient to contact office to confirm or reschedule office visit with Dr. Faust. Will also note in radiation notes for Tuesday. PSS- patient will need an OV with Dr. Faust after radiation is completed in August. Carol Ann Drake LPN documented in this encounter [facility] 08-03-2024 Telephone encounter Note Message left for patient to contact office to confirm or reschedule office visit with Dr. Faust. Will also note in radiation notes for Tuesday. [facility] Work Phone: 08-02-2024 Telephone encounter Note PSS- patient will need an OV with Dr. Faust after radiation is completed in August. Carol Ann Drake LPN [facility] 08-02-2024 Telephone encounter Note Oncotype results available to review. Tawanna Brandon RN [facility] 08-02-2024 Miscellaneous Notes Oncotype results available to review. Tawanna Brandon RN documented in this encounter [facility] 08-01-2024 Note HNO ID: [id number] Author: ITA TAYLOR RN Service: ? Author Type: Registered Nurse Type: Progress Notes Filed: 08/01/2024 11:33 Note Text: Radiation Therapy - Patient Education Note PATIENT NAME: Cara Singh PATIENT August 01, 2024 [facility] FACILITY/LOCATION: [place] READINESS TO LEARN Cognitive Ability: Alert and oriented Motivation to learn: Eager Family Support: Unable to assess - Family not present Instruction provide to: Patient Patient learns best by: Individual Instruction Written Instruction - Hand-outs Verbal Instruction Factors effecting learning: None Physical limitations effecting learning: None LEARNING RESPONSE Diagnosis: Pt simulated today for radiation therapy to right breast. Education Topic/Teaching Points: Radiation therapy, Side effects, and OTV: Method of instruction: Teach Back skin care Individual instruction Written instruction/Handouts Verbal instruction Patient /Family response: Patient verbalized understanding of radiation treatments, side effects, OTV, and transportation. Follow-up plan: Complete - No need for follow-up Contact information given. Supplemental material: Informational handouts on Deodorant, Fatigue, and Skin changes. 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 Patient has an Onbody or Implanted device: Yes, person notified was: bilateral implants Signed by: Ita Taylor RN [facility] 08-01-2024 History of Present illness Narrative Radiation Therapy - Patient Education Note PATIENT NAME: Cara Singh PATIENT August 01, 2024 [facility] FACILITY/LOCATION: [place] READINESS TO LEARN Cognitive Ability: Alert and oriented Motivation to learn: Eager Family Support: Unable to assess - Family not present Instruction provide to: Patient Patient learns best by: Individual Instruction Written Instruction - Hand-outs Verbal Instruction Factors effecting learning: None Physical limitations effecting learning: None LEARNING RESPONSE Diagnosis: Pt simulated today for radiation therapy to right breast. Education Topic/Teaching Points: Radiation therapy, Side effects, and OTV: Method of instruction: Teach Back skin care Individual instruction Written instruction/Handouts Verbal instruction Patient /Family response: Patient verbalized understanding of radiation treatments, side effects, OTV, and transportation. Follow-up plan: Complete - No need for follow-up Contact information given. Supplemental material: Informational handouts on Deodorant, Fatigue, and Skin changes. 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 Patient has an Onbody or Implanted device: Yes, person notified was: bilateral implants Signed by: Ita Taylor RN documented in this encounter [facility] 08-01-2024 History of Present illness Narrative CARA SINGH [id number] 08/01/2024 [facility] Department of Radiation Oncology [facility] RADIATION ONCOLOGY SIMULATION NOTE DATE OF SIMULATION: 08/01/2024 MACHINE: Siemens Definition CT Simulator Diagnosis: Local only recurrence of right breast cancer s/p local excision on 07/06/24. History of stage I, pT1a pN0 (sn), grade 1 invasive ductal carcinoma of the right breast in 2013 treated with right mastectomy and sentinel node biopsy 06/20/13 and then bilateral breast implants. Also h/o stage I, pT1b pN0, grade 1 invasive lobular carcinoma of the left breast in 2019 treated with left mastectomy and axillary node dissection on 07/19/19. AREA:Right chestwall/IM//SC/Axilla PATIENT POSITION: Supine. CONTRAST: None PROTOCOL: None BLOCKING: Custom blocking to be determined at treatment planning. FIXATION DEVICE: In order to achieve accurate and reproducible treatments, the patient is to be immobilized with AIO orfit board system. PROCEDURE: A time-out was conducted and recorded by the therapist. Patient was simulated on the CT scanner for external beam radiation therapy. Treatment site was marked by the simulation therapist. ASSESSMENT/PLAN: Patient tolerated simulation procedure well. Treatments will be initiated after treatment planning. The patient is scheduled for a verification simulation on the treatment machine to ensure proper set-up and field arrangement is correct prior to the first treatment of primary and boost menendez if applicable. Electronically Signed Jeanna Temple M.D./rosie 51:39 PM documented in this encounter [facility] 08-01-2024 History of Present illness Narrative CARA SINGH K [id number] 08/01/2024 [facility] - Department of Radiation Oncology Treatment Planning Note For reasons stated in the consult note, Cara Singh is a candidate for radiation therapy. Based on review and interpretation of the relevant diagnostic studies together with the exam findings, Cara Singh was simulated on 08/01/2024 at which time the target volume and/or requisite menendez were delineated, as indicated in the simulation note, to be treated according to the prescription. The treatment target and organs at risk were contoured on the simulation scan. Special consideration to these and other structures was given in light of the potential for increased toxicities due to presence of a prosthesis (tissue contact person or implant) in the treatment field. After reviewing multiple treatment plans with dosimetry, the best plan was approved to deliver the prescribed course of radiation to the target area using forward planning / 3D planning to allow for the best isodose distribution, treating the right supraclav axilla to the 100% isodose line with 6&15MV and 2 menendez and the right chestall to the 98% isodose line with 6/10MV and 2 menendez. Custom MLC and wedge were the treatment devices used to shape/modify the beams. Limiting dose to normal tissue was confirmed upon review of the calculated dose volume histogram. A completed summary of this plan dated 08/03/2024 incorporated herein by reference includes dose, beam arrangements, energy, blocking, isodose distribution, and/or ports and DVH. Electronically Signed Jeanna Temple M.D. 51:39 PM documented in this encounter [facility] 08-01-2024 Note HNO ID: [id number] Author: JEANNA TEMPLE MD Service: Radiation Oncology Author Type: Physician Type: Progress Notes Filed: 08/03/2024 13:39 Note Text: CARA SINGH [id number] 08/01/2024 [facility] Department of Radiation Oncology [facility] RADIATION ONCOLOGY SIMULATION NOTE DATE OF SIMULATION: 08/01/2024 MACHINE: Siemens Definition CT Simulator Diagnosis: Local only recurrence of right breast cancer s/p local excision on 07/06/24. History of stage I, pT1a pN0 (sn), grade 1 invasive ductal carcinoma of the right breast in 2013 treated with right mastectomy and sentinel node biopsy 06/20/13 and then bilateral breast implants. Also h/o stage I, pT1b pN0, grade 1 invasive lobular carcinoma of the left breast in 2019 treated with left mastectomy and axillary node dissection on 07/19/19. AREA:Right chestwall/IM//SC/Axilla PATIENT POSITION: Supine. CONTRAST: None PROTOCOL: None BLOCKING: Custom blocking to be determined at treatment planning. FIXATION DEVICE: In order to achieve accurate and reproducible treatments, the patient is to be immobilized with AIO orfit board system. PROCEDURE: A time-out was conducted and recorded by the therapist. Patient was simulated on the CT scanner for external beam radiation therapy. Treatment site was marked by the simulation therapist. ASSESSMENT/PLAN: Patient tolerated simulation procedure well. Treatments will be initiated after treatment planning. The patient is scheduled for a verification simulation on the treatment machine to ensure proper set-up and field arrangement is correct prior to the first treatment of primary and boost menendez if applicable. Electronically Signed Jeanna Temple M.D./rosie 51:39 PM [facility] 08-01-2024 Note HNO ID: [id number] Author: JEANNA TEMPLE MD Service: Radiation Oncology Author Type: Physician Type: Progress Notes Filed: 08/03/2024 13:39 Note Text: CARA SINGH K [id number] 08/01/2024 [facility] - Department of Radiation Oncology Treatment Planning Note For reasons stated in the consult note, Cara Singh is a candidate for radiation therapy. Based on review and interpretation of the relevant diagnostic studies together with the exam findings, Cara Singh was simulated on 08/01/2024 at which time the target volume and/or requisite menendez were delineated, as indicated in the simulation note, to be treated according to the prescription. The treatment target and organs at risk were contoured on the simulation scan. Special consideration to these and other structures was given in light of the potential for increased toxicities due to presence of a prosthesis (tissue contact person or implant) in the treatment field. After reviewing multiple treatment plans with dosimetry, the best plan was approved to deliver the prescribed course of radiation to the target area using forward planning / 3D planning to allow for the best isodose distribution, treating the right supraclav axilla to the 100% isodose line with [id number] and 2 menendez and the right chestall to the 98% isodose line with 6/10MV and 2 menendez. Custom MLC and wedge were the treatment devices used to shape/modify the beams. Limiting dose to normal tissue was confirmed upon review of the calculated dose volume histogram. A completed summary of this plan dated 08/03/2024 incorporated herein by reference includes dose, beam arrangements, energy, blocking, isodose distribution, and/or ports and DVH. Electronically Signed Jeanna Temple M.D. 51:39 PM [facility] 07-26-2024 History of Present illness Narrative BREAST SURGICAL ONCOLOGY SUBJECTIVE: REASON FOR TODAY'S VISIT: Patient presents with: Breast Cancer Post Op INTERVAL HISTORY: Cara presents today for scheduled post operative follow up and reports doing well. She has no complaints post operatively aside from expected tightness. 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 She found a lump in the right breast in April of this year. She was sent for breast imaging. Diagnosis was made at [facility] by means of ultrasound-guided core biopsy of Right breast. 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 Cara Singh presents with her Fly for evaluation and treatment recommendations. She did well with biopsy. She denies palpable mass, nipple discharge, or overlying skin changes. She had second look ultrasound today after MRI. She took endocrine therapy for 1-2 years after her right breast cancer in 2013, but not after her left breast cancer in 2019. Per Radha Christianson PA-C note: In 2013, she had Stage l (pT1a N0) right invasive ductal carcinoma. 03/2013 screening mammogram was abnormal for which subsequent right diagnostic imaging revealed a cluster of calcifications in the UOQ near the nipple. 04/2013 right mammotome biopsy revealed Grade 2 IDC, ER+(>95%)/AK+(80%)/HER2-. 04/2013 breast MRI revealed bilateral enlarged axillary LNs. 06/2013 right nipple-sparing mastectomy/SLNB and TE placement by Drs. Garza/Brodie revealed Grade 2 IDC, 1.1 mm. Margins were negative (closest 9 mm). 0/3 SLN were involved. No LVI. She took tamoxifen for 2 years but stopped in 05/2015 due to significant hot flashes and mood swings. 11/2013 she had a right TE exchange for permanent smooth round silicone retropectoral implant and left breast augmentation with smooth round silicone retropectoral implant, and 06/2014 she had right reconstructed breast revision and an implant exchange bilaterally by Dr. Chirinos. In 2019, she had Stage 1 (pT1b N0 M0) left invasive mammary carcinoma in the upper outer quadrant of breast. At OSH she had an abnormal screening mammogram in 04/2019 for which left US revealed a 9 mm lobulated mass at 2:00, 5 cmfn. 06/2019 left ultrasound guided core biopsy at OSH showed Grade 1 Invasive mammary carcinoma with ductal and lobular features, ER+(90%)/AK+(80%)/HER2-. 07/2019 left nipple sparing mastectomy/SLNB and TE placement with removal of implant by Drs. Garza/Brodie showed an 8 mm Grade 1 Invasive mammary carcinoma with lobular morphology. 0/3 SLNB were involved. Margins were negative (closest 4 mm). No LVI. 10/2019 she had a TE exchange for a permanent smooth round silicone retropectoral implant by Dr. Chirinos. Oncotype RS was 14 corresponding to a 4% risk of distant recurrence at 10 years; thus chemotherapy was not recommended. She started Tamoxifen in 07/2019 and then stopped it in early 2020 due to side effects again. She is not interested in going back on any type of medication. She has not seen Med/Onc Dr. Faust since 2019. She reports that she was advised there isn't a significant benefit of taking Tamoxifen following mastectomies. 05/2013 Cara Ramirez's clinical Integrated BRACAnalysis was negative for a deleterious mutation. 04/2021 she returned for panel testing at OSH. She shared the results with me which were uploaded into the chart. 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 Smoker: No As part of today's visit, I have reviewed and updated as necessary: Current medication list, Past Medical History, Past Surgical History, Allergies, Family History, Social History, and OBGYN History HISTORY OF BREAST PROCEDURE(S): Breast biopsy: Yes, as above Breast cysts: No Breast surgery: Yes, as above Breast cancer: Yes, as above. OBSTETRIC RELATED HISTORY: Patient did breast feed Age at of First Child: 31 years of age. Age at Onset of Menses: Patient does not remember. Age at Menopause: The patient is not menopausal at this time. P: 2 Patient's last menstrual period was 07/22/2024 (approximate). Exogenous Hormone Use: Tamoxifen x 1-2 years last taken ~4942-4654 IUD - in the past (more than 20 years ago) FAMILY HISTORY: The patient is not of Ashkenazic Ancestry Breast cancer: Maternal Grandmother, mother and maternal aunt (moms half sister) Prostate cancer: father (non metastatic) REVIEW OF SYSTEMS: GENERAL: No weight loss, malaise or fevers HEENT: Negative for frequent or significant headaches, No changes in hearing or vision, no nose bleeds or other nasal problems RESPIRATORY: Negative for cough, hemoptysis, wheezing, COPD, dyspnea or shortness of breath CARDIOVASCULAR: Negative for chest pain, leg swelling, hypertension, CHF or palpitations GASTROINTESTINAL: No nausea, vomiting, or diarrhea GENITOURINARY: No history of dysuria, frequency or incontinence GYNECOLOGICAL: Positive for abnormal vaginal bleeding starting in September of last year saw CV RN, no concerns at this time MUSCULOSKELETAL: joint pain or swelling (neck) INTEGUMENTARY:Denies Scleroderma or Lupus. Denies chronic skin conditions. PSYCHOLOGICAL: History of anxiety disorder: ~30 years ago. Patient feels she is coping well with recent Breast Cancer diagnosis. Negative for sleep disturbance, mood disorder and recent psychosocial stressors. All other reviewed and negative other than HPI. I reviewed the PMH, PSH, FHx, SHx, OBHx, and agree with the above. I reviewed the HPI and ROS in detail with the Patient and edited as above. OBJECTIVE: PHYSICAL EXAM: Temp 37 C (98.6 F) (Oral) Wt 66.9 kg (147 lb 7.8 oz) LMP 07/22/2024 (Approximate) BMI 24.54 kg/m ECOG PERFORMANCE STATUS: 0- Fully active, able to carry on all pre-disease performance w/o restriction. Physical Exam: Constitutional: well nourished, no distress, appears stated age HEENT: PERRL, conjunctiva/corneas clear, EOM's grossly intact Respiratory: Respirations unlabored Cardiovascular: Regular rate Musculoskeletal: Extremities normal, normal gait. Normal range of motion of bilateral upper extremities Skin: Skin color normal, warm, dry, no rashes Neurologic: alert and oriented, follows simple/complex commands Psych: mood and affect normal and appropriate Breast: right upper inner quadrant curvilinear incision - healing well without evidence of infection. There is no hematoma. IMAGING TO DATE: I have independently and personally reviewed the patient's breast imaging, specifically mammogram and ultrasound images noted below. -no new imaging PATHOLOGY RESULTS: -surgical pathology reviewed with patient ASSESSMENT: (C50.511) Recurrent breast cancer, right (HCC) (primary encounter diagnosis) Plan: CONSULT TO BREAST REHAB PROGRAM, PSYCHOLOGY BREAST CENTER CONSULT, CONSULT TO WOMEN'S HEALTH Cancer Staging Recurrent breast cancer, right (HCC) Staging form: Breast, AJCC 8th Edition - Clinical stage from 05/23/2024: Stage IA (rcT1c, cN0, cM0, G2, ER+, AK+, HER2-) - Signed by Adam Corona DO on 07/16/2024 - Pathologic stage from 07/10/2024: Stage Unknown (rpT1c, pNX, G3) - Unsigned PLAN: Medical oncology: f/u with Dr. Faust Radiation oncology: f/u with Dr. Temple Referral to PT: placed today The incision is healing appropriately without evidence of infection. Pathology report reviewed in detail - closest margin posterior but tumor resected to muscle. All questions answered. We reviewed future surveillance in detail including clinical exams alone without routine imaging surveillance. Offered referral to breast psychology and women's health to assist in management of anticipated hot flashes related to treatment -referrals placed. Follow up: in 6 months, post radiation Adam Corona DO Breast Surgery All questions were answered and the patient had no further concerns at this time was given our contact information if she has any further questions or concerns. I spent a total of 20 minutes on the date of the service which included preparing to see the patient, [id number] patient care, completing clinical documentation, obtaining and/or reviewing separately obtained history, performing a medically appropriate examination, counseling and educating the patient/family/caregiver, communicating with other HCPs (not separately reported), communicating results to the patient/family/caregiver, and care coordination (not separately reported). Participation of a fellow, resident, medical student, or advanced practice provider student in performing the sensitive examination was discussed with the patient or authorized personnel representative. The patient or authorized personnel representative has agreed to proceed with the sensitive examination. (Sensitive examination includes inspection and/or palpation of the breasts, pelvis, prostate and anorectal regions) documented in this encounter [facility] 07-26-2024 Note HNO ID: [id number] Author: ADAM CORONA DO Service: ? Author Type: Physician Type: Progress Notes Filed: 07/26/2024 14:40 Note Text: BREAST SURGICAL ONCOLOGY SUBJECTIVE: REASON FOR TODAY'S VISIT: Patient presents with: Breast Cancer Post Op INTERVAL HISTORY: Cara presents today for scheduled post operative follow up and reports doing well. She has no complaints post operatively aside from expected tightness. 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 She found a lump in the right breast in April of this year. She was sent for breast imaging. Diagnosis was made at [facility] by means of ultrasound-guided core biopsy of Right breast. 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 Cara Singh presents with her Fly for evaluation and treatment recommendations. She did well with biopsy. She denies palpable mass, nipple discharge, or overlying skin changes. She had second look ultrasound today after MRI. She took endocrine therapy for 1-2 years after her right breast cancer in 2013, but not after her left breast cancer in 2019. Per Radha Christianson PA-C note: In 2013, she had Stage l (pT1a N0) right invasive ductal carcinoma. 03/2013 screening mammogram was abnormal for which subsequent right diagnostic imaging revealed a cluster of calcifications in the UOQ near the nipple. 04/2013 right mammotome biopsy revealed Grade 2 IDC, ER+(>95%)/AK+(80%)/HER2-. 04/2013 breast MRI revealed bilateral enlarged axillary LNs. 06/2013 right nipple-sparing mastectomy/SLNB and TE placement by Drs. Garza/Brodie revealed Grade 2 IDC, 1.1 mm. Margins were negative (closest 9 mm). 0/3 SLN were involved. No LVI. She took tamoxifen for 2 years but stopped in 05/2015 due to significant hot flashes and mood swings. 11/2013 she had a right TE exchange for permanent smooth round silicone retropectoral implant and left breast augmentation with smooth round silicone retropectoral implant, and 06/2014 she had right reconstructed breast revision and an implant exchange bilaterally by Dr. Chirinos. In 2019, she had Stage 1 (pT1b N0 M0) left invasive mammary carcinoma in the upper outer quadrant of breast. At OSH she had an abnormal screening mammogram in 04/2019 for which left US revealed a 9 mm lobulated mass at 2:00, 5 cmfn. 06/2019 left ultrasound guided core biopsy at OSH showed Grade 1 Invasive mammary carcinoma with ductal and lobular features, ER+(90%)/AK+(80%)/HER2-. 07/2019 left nipple sparing mastectomy/SLNB and TE placement with removal of implant by Drs. Garza/Brodie showed an 8 mm Grade 1 Invasive mammary carcinoma with lobular morphology. 0/3 SLNB were involved. Margins were negative (closest 4 mm). No LVI. 10/2019 she had a TE exchange for a permanent smooth round silicone retropectoral implant by Dr. Chirinos. Oncotype RS was 14 corresponding to a 4% risk of distant recurrence at 10 years; thus chemotherapy was not recommended. She started Tamoxifen in 07/2019 and then stopped it in early 2020 due to side effects again. She is not interested in going back on any type of medication. She has not seen Med/Onc Dr. Faust since 2019. She reports that she was advised there isn't a significant benefit of taking Tamoxifen following mastectomies. 05/2013 Cara Ramirez's clinical Integrated BRACAnalysis was negative for a deleterious mutation. 04/2021 she returned for panel testing at OSH. She shared the results with me which were uploaded into the chart. 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 Smoker: No As part of today's visit, I have reviewed and updated as necessary: Current medication list, Past Medical History, Past Surgical History, Allergies, Family History, Social History, and OBGYN History HISTORY OF BREAST PROCEDURE(S): Breast biopsy: Yes, as above Breast cysts: No Breast surgery: Yes, as above Breast cancer: Yes, as above. OBSTETRIC RELATED HISTORY: Patient did breast feed Age at of First Child: 31 years of age. Age at Onset of Menses: Patient does not remember. Age at Menopause: The patient is not menopausal at this time. P: 2 Patient's last menstrual period was 07/22/2024 (approximate). Exogenous Hormone Use: Tamoxifen x 1-2 years last taken ~4344-6025 IUD - in the past (more than 20 years ago) FAMILY HISTORY: The patient is not of Ashkenazic Ancestry Breast cancer: Maternal Grandmother, mother and maternal aunt (moms half sister) Prostate cancer: father (non metastatic) REVIEW OF SYSTEMS: GENERAL: No weight loss, malaise or fevers HEENT: Negative for (more content not included)... [facility] 07-26-2024 Note HNO ID: [id number] Author: ADAM CORONA DO Service: ? Author Type: Physician Type: Progress Notes Filed: 07/26/2024 07:39 Note Text: The below documentation is based on a tumor board discussion amongst the multidisciplinary team and should NOT be used for insurance verification or coverage purposes or interpreted as the final plan of care: Date of Presentation: July 26, 2024 Presenter: Adam Corona DO Team Members: Govind Corona Lee Primary reason for presentation: discussion of pt presentation / treatment options Anatomic stage: Cancer Staging (Hyperlink to Activity) Recurrent breast cancer, right (HCC) Staging form: Breast, AJCC 8th Edition - Clinical stage from 05/23/2024: Stage IA (rcT1c, cN0, cM0, G2, ER+, AK+, HER2-) - Signed by Adam Corona DO on 07/16/2024 Stage prefix: Recurrence Histologic grading system: 3 grade system - Pathologic stage from 07/10/2024: Stage Unknown (rpT1c, pNX, G3) - Unsigned Stage prefix: Recurrence Histologic grading system: 3 grade system [facility] Pathway discussed: Yes Clinical trial discussion: n/a Genetics: Tested Positive CHEK2 Supportive Care: None Indicated at this time Discussion / recommendations: After review and discussion of patient presentation, the following thoughts / recommendations were made. 1) Surgery: completed wide excision right UIQ chest wall recurrence with negative margins 2) Medical Oncology: oncotype ordered and pending, adjuvant endocrine therapy with ovarian suppression, can consider CDK4/6i but currently not a candidate 3) Radiation Oncology: planned chest wall radiation 4) offer referrals for breast psychology and women's health to discuss non-hormonal management of hot flashes; can consider venlafaxine to manage hot flashes This abstract and interpretation of the conversation at tumor board has been completed by Adam Corona DO. The final recommendations / treatment plan will be made by the patient's primary health care team and patient, after full discussion as appropriate. [facility] 07-20-2024 Note HNO ID: [id number] Author: JEANNA TEMPLE MD Service: ? Author Type: Physician Type: Progress Notes Filed: 07/26/2024 11:00 Note Text: Radiation Oncology - Follow Up Note PATIENT NAME: Cara Singh PATIENT DIAGNOSIS: Local only recurrence of right breast cancer s/p local excision on 07/06/24. History of stage I, pT1a pN0 (sn), grade 1 invasive ductal carcinoma of the right breast in 2013 treated with right mastectomy and sentinel node biopsy 06/20/13 and then bilateral breast implants. Also h/o stage I, pT1b pN0, grade 1 invasive lobular carcinoma of the left breast in 2019 treated with left mastectomy and axillary node dissection on 07/19/19. INTERVAL HISTORY: Since I saw her, she underwent local excision of the recurrence tumor on 07/06/24. Pathology showed grade 3 invasive ductal carcinoma measuring 1.3 cm with negative surgical margins. There was no LVI. Surgical margins were negative with the closest margin of 0.5 mm from the posterior margin. ALLERGIES No Known Allergies MEDICATIONS: valACYclovir (VALTREX) 1 gram tablet TAKE TWO TABLETS BY MOUTH TWICE DAILY for TWO days NEEDED for cold SORE iv contrast (will be provided with radiology test) CT ABD/PEL -Inject, intravenously, once for 1 dose.No IV access, insert saline lock prior to the beginning of sedation, infusion, injection of imaging exam. Discontinue saline lock post exam. If Pt. has a central line or IVAD, may access for administration according to line specific nursing protocol. Once exam is complete flush line and de-access according to line specific nursing protocol in the CT contrast administration guidelines link. enteric contrast (will be provided with radiology test) For CT ABD/PEL W IVCON Routine order Administer, As Directed One Time Only, via Oral, Rectal, both Oral and Rectal, Enteric Tube, Stoma or Indwelling Catheter, Enteric Contrast as designated per enteric contrast guidelines iv contrast (will be provided with radiology test) CT Chest W -Inject, intravenously, once for 1 dose.No IV access, insert saline lock prior to the beginning of sedation, infusion, injection of imaging exam. Discontinue saline lock post exam. If Pt. has a central line or IVAD, may access for administration according to line specific nursing protocol. Once exam is complete flush line and de-access according to line specific nursing protocol in the CT contrast administration guidelines link. loratadine (CLARITIN) 10 mg tablet Take 10 mg by mouth once daily. losartan (COZAAR) 25 mg tablet Take 25 mg by mouth once daily. albuterol HFA (PROAIR HFA) 90 mcg/actuation inhaler inhale 1 puff by mouth every 4 hours as needed for wheezing/shortnessof breath. as directed fluticasone (FLONASE) 50 mcg/actuation nasal spray Use 1 [place] in each nostril daily at bedtime. PHYSICAL EXAM: VS: BP 138/86 Pulse 90 Temp 36.9 ?C (98.4 ?F) (Temporal) LMP 06/23/2024 (Approximate) SpO2 100% KPS: 100 General Appearance: Alert and oriented. No acute distress. ASSESSMENT AND PLAN: 49 year old woman with local only recurrence of right breast cancer s/p local excision on 07/06/24. History of stage I, pT1a pN0 (sn), grade 1 invasive ductal carcinoma of the right breast in 2013 treated with right mastectomy and sentinel node biopsy 06/20/13 and then bilateral breast implants. Also h/o stage I, pT1b pN0, grade 1 invasive lobular carcinoma of the left breast in 2019 treated with left mastectomy and axillary node dissection on 07/19/19. As she has recurrence in the upper inner chest wall, I recommend radiation treatment to the right chest wall/internal mammary region and axilla/SC. I explained the rationale, benefits, alternative management options and potential complications of radiation treatment to the patient and she understands and agrees to proceed. It was explained and understood that other personnel such as radiation therapists, children's ministry director, and physicists will participate in planning and delivery of radiation treatment. Permanent tattoo cabrales will be placed to aid with positioning for daily treatment and the patient consented. Patient will have a simulation procedure after she heals from surgery. Signed by: Jenana Temple MD cc: Neena Knox [id number] [place] [address] [facility] 07-20-2024 Note HNO ID: [id number] Author: ITA TAYLOR RN Service: ? Author Type: Registered Nurse Type: Progress Notes Filed: 07/26/2024 11:00 Note Text: Radiation Therapy - Nursing Note (Follow-up) PATIENT NAME: Cara Singh PATIENT July 20, 2024 [facility] FACILITY/LOCATION: [place] Reason for visit: Follow up to discuss treatment options. Subjective Data slight post op tenderness Additional Data Do you want to see a Spool Tender? No Nursing Assessment Fatigue: none Appetite: good Weight Gain/Loss: Not applicable Last 6 Encounter Wt Readings: Date: Wt: 07/19/2024 66.2 kg (146 lb) 06/25/2024 65.8 kg (145 lb) 06/20/2024 65.8 kg (145 lb) 06/07/2024 66.6 kg (146 lb 13.2 oz) 05/31/2024 66.2 kg (146 lb) 05/04/2024 66.7 kg (147 lb 0.8 oz) Bowel Function: normal bowel movements Bone Pain: N?a Focused Assessment GENERAL: No additional assessment areas noted. SIGNED by: Ita Taylor RN [facility] 07-19-2024 Note HNO ID: [id number] Author: JAY FAUST, Service: ? Author Type: Physician Type: Progress Notes Filed: 07/22/2024 13:20 Note Text: Oncologic problem(s): 1) Recurrent breast cancer. HPI: The patient is a 49 yo female who was diagnosed with a stage I (pT1a, N0) right breast cancer in 2013 following an abnormality found on her initial screening mammogram. Underwent a right-sided mastectomy along with sentinel lymph node biopsy on 06/20/2013. Pathology: A) SENTINEL LYMPH NODE #1, EXCISION: - One lymph node, negative for carcinoma (0/1). B) SENTINEL LYMPH NODE #2, EXCISION: - One lymph node, negative for carcinoma (0/1). C) SENTINEL LYMPH NODE #3, EXCISION: - One lymph node, negative for carcinoma (0/1). D) DISTAL TISSUE UNDER NIPPLE, RIGHT BREAST, EXCISION: - Negative for carcinoma. E) RIGHT BREAST, NIPPLE SPARING MASTECTOMY: - Invasive ductal carcinoma. - Ductal carcinoma in situ, nuclear grade 2, solid and cribriform types. - Changes consistent with prior biopsy site. - Surgical margins of resection are negative for carcinoma or carcinoma in situ. - See comment. COMMENT An immunohistochemical stain for p63 is negative in the focus of invasive carcinoma supporting the above diagnosis. BREAST (INVASIVE CARCINOMA) SYNOPTIC REPORT PROCEDURE: Total mastectomy (nipple sparing) LYMPH NODE SAMPLING: Gilson lymph nodes SPECIMEN LATERALITY: Right HISTOLOGIC TYPE OF INVASIVE CARCINOMA: Invasive ductal carcinoma TUMOR SIZE (GREATEST DIMENSION OF LARGEST FOCUS OF INVASION GREATER THAN 1 MM): 1.1 mm LIBERTY HISTOLOGIC GRADE: Grade 1 - GLANDULAR/TUBULAR DIFFERENTIATION: Score 1 - NUCLEAR PLEOMORPHISM: Score 2 - MITOTIC RATE: Score 2 TUMOR FOCALITY: Single focus of invasive carcinoma DUCTAL CARCINOMA IN SITU (DCIS): Present MACROSCOPIC/MICROSCOPIC EXTENT OF TUMOR: - Skin: Uninvolved by invasive carcinoma or carcinoma in situ MARGINS: Margins uninvolved by invasive carcinoma - - Distance of invasive carcinoma from closest margin: 9 mm from the anterior radial margin MARGINS: Margins uninvolved by DCIS - - Distance of DCIS from closest margin: 6 mm from the anterior radial margin LYMPH NODES: - Number of sentinel lymph nodes examined: 3 - Total number of lymph nodes examined (sentinel and non-sentinel): 3 - - Number of lymph nodes with macrometastasis: 0 - - Number of lymph nodes with micrometastasis: 0 - - Number of lymph nodes with isolated tumor cells: 0 LYMPH VASCULAR INVASION: Not identified PATHOLOGIC STAGING: pT1a pN0 (sn) pM - Not applicable ANCILLARY STUDIES: Previously performed, please see separate report [id number] for additional details. - Estrogen Receptors: Positive, greater than 95%; stain intensity is strong - Progesterone Receptors: Positive, 80%; stain intensity is moderate - HER2 (FISH): Not amplified She has bilateral implants. Her left implant was placed in November 2013 for symmetry and augmentation. She began tamoxifen on July 23, 2013. Stopped 05/2015 due to significant hot flashes and mood swings. OB found lump in left breast. Mammogram and US ?suggested cyst. Was referred to Dr. Garza US left breast : No prior exams were available for comparison. Ultrasound of the left breast 2 o'clock, and axilla regions was performed. Grady scale images of the real-time examination were reviewed. There is 0.9 cm x 0.6 cm x 0.9 cm lobulated mass with an indistinct margin in the left breast at 2 o'clock middle depth 5 cm from the nipple. This lobulated mass is hypoechoic. This correlates as palpated. IMPRESSION: SUSPICIOUS FINDING - BIOPSY SHOULD BE CONSIDERED The 0.9 cm x 0.6 cm x 0.9 cm lobulated mass in the left breast has a differential diagnosis of a solid mass or fat necrosis and is suspicious of malignancy. An ultrasound guided biopsy is recommended. Pathology: CORE BIOPSY OF LEFT BREAST (2 O'CLOCK, 5 CM FROM NIPPLE) - INVASIVE WELL DIFFERENTIATED MAMMARY CARCINOMA. COMMENT: The tumor has the architectural features of a lobular carcinoma with absence of tubule formation (tubule score =3) and a single file pattern of infiltration. There is grade 1 nuclear atypia and mitoses are not identified (mitotic score = 1) for a total Liberty score of 5 corresponding to a grade 1 tumor. No in situ component is identified. No vascular invasion is found to be present. Despite having the typical histologic features of invasive lobular carcinoma, an E-cadherin immunostain reveals the tumor cells to be strongly positive. This suggests that the tumor may have mixed ductal and lobular features. A cytokeratin immunostain was performed to better identify the tumor cells. This case was also reviewed by Dr. Ron Amor who agrees with the diagnosis. THERAPEUTIC MARKER ANALYSIS ER - - - - - Positive, 90%, strong diffuse staining. AK - - - - - Positive, 80%, strong diffuse staining. HER2- - - -Interpretation: NEGATIVE for (more content not included)... [facility] 07-19-2024 History of Present illness Narrative Oncologic problem(s): 1) Recurrent breast cancer. HPI: The patient is a 49 yo female who was diagnosed with a stage I (pT1a, N0) right breast cancer in 2013 following an abnormality found on her initial screening mammogram. Underwent a right-sided mastectomy along with sentinel lymph node biopsy on 06/20/2013. Pathology: A) SENTINEL LYMPH NODE #1, EXCISION: - One lymph node, negative for carcinoma (0/1). B) SENTINEL LYMPH NODE #2, EXCISION: - One lymph node, negative for carcinoma (0/1). C) SENTINEL LYMPH NODE #3, EXCISION: - One lymph node, negative for carcinoma (0/1). D) DISTAL TISSUE UNDER NIPPLE, RIGHT BREAST, EXCISION: - Negative for carcinoma. E) RIGHT BREAST, NIPPLE SPARING MASTECTOMY: - Invasive ductal carcinoma. - Ductal carcinoma in situ, nuclear grade 2, solid and cribriform types. - Changes consistent with prior biopsy site. - Surgical margins of resection are negative for carcinoma or carcinoma in situ. - See comment. COMMENT An immunohistochemical stain for p63 is negative in the focus of invasive carcinoma supporting the above diagnosis. BREAST (INVASIVE CARCINOMA) SYNOPTIC REPORT PROCEDURE: Total mastectomy (nipple sparing) LYMPH NODE SAMPLING: Gilson lymph nodes SPECIMEN LATERALITY: Right HISTOLOGIC TYPE OF INVASIVE CARCINOMA: Invasive ductal carcinoma TUMOR SIZE (GREATEST DIMENSION OF LARGEST FOCUS OF INVASION GREATER THAN 1 MM): 1.1 mm LIBERTY HISTOLOGIC GRADE: Grade 1 - GLANDULAR/TUBULAR DIFFERENTIATION: Score 1 - NUCLEAR PLEOMORPHISM: Score 2 - MITOTIC RATE: Score 2 TUMOR FOCALITY: Single focus of invasive carcinoma DUCTAL CARCINOMA IN SITU (DCIS): Present MACROSCOPIC/MICROSCOPIC EXTENT OF TUMOR: - Skin: Uninvolved by invasive carcinoma or carcinoma in situ MARGINS: Margins uninvolved by invasive carcinoma - - Distance of invasive carcinoma from closest margin: 9 mm from the anterior radial margin MARGINS: Margins uninvolved by DCIS - - Distance of DCIS from closest margin: 6 mm from the anterior radial margin LYMPH NODES: - Number of sentinel lymph nodes examined: 3 - Total number of lymph nodes examined (sentinel and non-sentinel): 3 - - Number of lymph nodes with macrometastasis: 0 - - Number of lymph nodes with micrometastasis: 0 - - Number of lymph nodes with isolated tumor cells: 0 LYMPH VASCULAR INVASION: Not identified PATHOLOGIC STAGING: pT1a pN0 (sn) pM - Not applicable ANCILLARY STUDIES: Previously performed, please see separate report [id number] for additional details. - Estrogen Receptors: Positive, greater than 95%; stain intensity is strong - Progesterone Receptors: Positive, 80%; stain intensity is moderate - HER2 (FISH): Not amplified She has bilateral implants. Her left implant was placed in November 2013 for symmetry and augmentation. She began tamoxifen on July 23, 2013. Stopped 05/2015 due to significant hot flashes and mood swings. OB found lump in left breast. Mammogram and US ?suggested cyst. Was referred to Dr. Garza US left breast : No prior exams were available for comparison. Ultrasound of the left breast 2 o'clock, and axilla regions was performed. Grady scale images of the real-time examination were reviewed. There is 0.9 cm x 0.6 cm x 0.9 cm lobulated mass with an indistinct margin in the left breast at 2 o'clock middle depth 5 cm from the nipple. This lobulated mass is hypoechoic. This correlates as palpated. IMPRESSION: SUSPICIOUS FINDING - BIOPSY SHOULD BE CONSIDERED The 0.9 cm x 0.6 cm x 0.9 cm lobulated mass in the left breast has a differential diagnosis of a solid mass or fat necrosis and is suspicious of malignancy. An ultrasound guided biopsy is recommended. Pathology: CORE BIOPSY OF LEFT BREAST (2 O'CLOCK, 5 CM FROM NIPPLE) - INVASIVE WELL DIFFERENTIATED MAMMARY CARCINOMA. COMMENT: The tumor has the architectural features of a lobular carcinoma with absence of tubule formation (tubule score =3) and a single file pattern of infiltration. There is grade 1 nuclear atypia and mitoses are not identified (mitotic score = 1) for a total Liberty score of 5 corresponding to a grade 1 tumor. No in situ component is identified. No vascular invasion is found to be present. Despite having the typical histologic features of invasive lobular carcinoma, an E-cadherin immunostain reveals the tumor cells to be strongly positive. This suggests that the tumor may have mixed ductal and lobular features. A cytokeratin immunostain was performed to better identify the tumor cells. This case was also reviewed by Dr. Ron Amor who agrees with the diagnosis. THERAPEUTIC MARKER ANALYSIS ER - - - - - Positive, 90%, strong diffuse staining. AK - - - - - Positive, 80%, strong diffuse staining. HER2- - - -Interpretation: NEGATIVE for HER2 (ERBB2) Expression Score: 0 Presents for ongoing oncologic management. Interim history: Underwent a left-sided simple mastectomy along with sentinel lymph node biopsy and complete axillary lymphadenectomy along with immediate breast reconstruction with use of tissue contact person on 07/19/2019. Pathology: FINAL DIAGNOSIS 1. Left sentinel lymph node 1, sentinel node biopsy (A) - One lymph node, negative for metastatic malignancy (0/1). 2. Left sentinel lymph node 2, sentinel node biopsy (B) - Fibroadipose tissue, negative for malignancy. - No lymphoid tissue present. 3. Left sentinel lymph node 3, sentinel node biopsy (C) - One lymph node, negative for metastatic malignancy (0/1). 4. Left breast, nipple sparing mastectomy (D) - Invasive mammary carcinoma with lobular morphology, Liberty grade 1, measuring 8 mm in greatest dimension (please see comment and synoptic report). - Lobular neoplasia (atypical lobular hyperplasia/lobular carcinoma in situ), classic type. - Fibrocystic change including usual ductal hyperplasia and sclerosing adenosis. - Biopsy clip and biopsy site reparative changes identified. EDK/MAP 07/23/2019 COMMENT Per EPIC review, an E-cadherin immunohistochemical stain was performed on the prior core needle biopsy that was interpreted at [facility]. Per report, this stain showed retained expression within the invasive carcinoma. That said, the morphology of the above invasive mammary carcinoma includes single cells arranged in linear arrays, a targetoid distribution around benign epithelial elements and tumor cells with rare foci of intracytoplasmic mucin. Each of these histologic features is typical of invasive lobular carcinoma. The literature supports that a subset (up to 10%) of invasive lobular carcinomas may show aberrant expression of E-cadherin. As such, the above carcinoma is most in keeping with an invasive lobular carcinoma. SYNOPTIC REPORT OF [facility] PATHOLOGIC FINDINGS LEFT BREAST: BREAST INVASIVE CARCINOMA WORKSHEET Part: A, C and D Procedure: Total mastectomy (including nipple-sparing and skin-sparing mastectomy) Specimen Laterality: Left Tumor size: Size of largest invasive carcinoma: Greatest dimension of largest focus of invasion >1 mm: 8 mm Tumor Focality: Single focus of invasive carcinoma Histologic Type of Invasive Carcinoma: Invasive lobular carcinoma Histologic Grade: Glandular (Acinar) / Tubular Differentiation: Score 3 Nuclear Pleomorphism: Score 1 Mitotic Rate: Score 1 (<=3 mitosis per mm2) Overall Grade: Grade I Ductal Carcinoma In Situ: No DCIS is present in specimen Tumor Extension: Skin: Uninvolved Nipple: Not applicable Skeletal muscle: Not applicable Invasive Carcinoma Margins: Margins uninvolved by invasive carcinoma Distance from closest margin: 4 mm Closest margin: Superior radial Distance of invasive carcinoma to deep margin: 4 mm DCIS Margins: No DCIS in specimen Lymph Nodes: Uninvolved by tumor cells Number of lymph nodes examined: 2 Number of sentinel lymph nodes examined: 2 Treatment Effect: No known presurgical therapy Lymph-Vascular Invasion: Not identified Pathologic Stage Classification (pTNM,AJCC 8th ed) TNM Descriptor(s): Not applicable Primary Tumor (Invasive Carcinoma) (pT): pT1b Regional Lymph Nodes (pN): Modifier: (sn): Gilson node(s) evaluated Category (pN): pN0 Distant metastasis: Distant Metastasis (pM) Not applicable/Not confirmed pathologically in this case Estrogen & progesterone receptors: Previously performed and reported as follows: Estrogen receptor: Positive (90%, strong) Progesterone receptor: Positive (80%, strong) Specimen number #: [facility] [id number] (HER2) ERBB2 Status: Previously performed and reported as follows: HER2:Negative (0) Last seen here 10/08/2019 and was reportedly taking tamoxifen. Per Radha Christianson's note 05/04/2024: 10/2019 she had a TE exchange for a permanent smooth round silicone retropectoral implant by Dr. Chirinos. Oncotype RS was 14 corresponding to a 4% risk of distant recurrence at 10 years; thus chemotherapy was not recommended. She started Tamoxifen in 07/2019 and then stopped it in early 2020 due to side effects again. She is not interested in going back on any type of medication. She has not seen Med/Onc Dr. Faust since 2019. She reports that she was advised there isn't a significant benefit of taking Tamoxifen following mastectomies. 05/2013 Cara Ramirez's clinical Integrated BRACAnalysis was negative for a deleterious mutation. 04/2021 she returned for panel testing at OSH. She shared the results with me which were uploaded into the chart. 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 Didn't follow up here after 09/2019. 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 Appreciated lump right upper inner breast early April 2024. US 05/14/2024: IMPRESSION: 1.2 cm mass with indistinct margins in the right breast at 2:00, which is at moderate suspicion for malignancy. Ultrasound-guided biopsy is recommended. US guided biopsy 05/26/2024. Pathology: A: Breast, right, 2:00, 8 cmfn, 1.3 cm mass, ultrasound-guided biopsy with zipper setter chainstitch reflector placement: - Invasive mammary carcinoma, provisional Carpenter grade 2, measuring at least 3 mm in greatest dimension. This addendum is to report results of immunohistochemical studies with no changes in the final interpretation. Immunohistochemical studies confirm the carcinoma cells display predominantly intact membranous expression of E-cadherin and [id number], supporting ductal phenotype. ER positive (greater than 90% with strong staining intensity) AK positive (50% with moderate staining intensity). HER2 IHC 1+. Tumor grade is 2. Menses have been regular, but most recent was about 2 weeks late. Starting last summer has had heavier menstrual bleeding. Seeing Dr. Andrews. Presents for ongoing oncologic management. Interim history: Underwent surgery. Pathology noted. Healing well. Most recent full menses was in April. Had a 2-day menses in May. No hot flashes. 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 Raynaud phenomenon Rotator cuff strain rehab treatment finish 12/2012 Urinary calculus, unspecified 02/2010, 05/2019 ESWL Varicose veins of other sites PAST SURGICAL HISTORY Procedure Laterality Date BIOPSY BREAST 05/2013 right breast BREAST AUGMENTATION W/PROSTHETIC IMPLANT s/p R mastectomy; new implant 06/2014 COLPOSCOPY CERVIX UPPER/ADJACENT VAGINA 08/15/06 Colposcopy EXC/DSTRJ LINGUAL TONSIL ANY METHOD SPX INSERT INTRAUTERINE DEVICE 05/14/2010 mirena , REMOVED IUD REMOVAL 07/06/12 LITHOTRIPSY XTRCORP SHOCK WAVE 02/2010 Lithotripsy MASTECTOMY HX Left 07/2019 MASTECTOMY, SIMPLE, COMPLETE 06/20/2013 Dr. Garza right breast with sln bx and nipple sparing REVISION OF RECONSTRUCTED BREAST 06/18/14 ALLERGIES No Known Allergies Current Outpatient Medications Medication Sig valACYclovir (VALTREX) 1 gram tablet TAKE TWO TABLETS BY MOUTH TWICE DAILY for TWO days NEEDED for cold SORE iv contrast (will be provided with radiology test) CT ABD/PEL -Inject, intravenously, once for 1 dose.No IV access, insert saline lock prior to the beginning of sedation, infusion, injection of imaging exam. Discontinue saline lock post exam. If Pt. has a central line or IVAD, may access for administration according to line specific nursing protocol. Once exam is complete flush line and de-access according to line specific nursing protocol in the CT contrast administration guidelines link. enteric contrast (will be provided with radiology test) For CT ABD/PEL W IVCON Routine order Administer, As Directed One Time Only, via Oral, Rectal, both Oral and Rectal, Enteric Tube, Stoma or Indwelling Catheter, Enteric Contrast as designated per enteric contrast guidelines iv contrast (will be provided with radiology test) CT Chest W -Inject, intravenously, once for 1 dose.No IV access, insert saline lock prior to the beginning of sedation, infusion, injection of imaging exam. Discontinue saline lock post exam. If Pt. has a central line or IVAD, may access for administration according to line specific nursing protocol. Once exam is complete flush line and de-access according to line specific nursing protocol in the CT contrast administration guidelines link. loratadine (CLARITIN) 10 mg tablet Take 10 mg by mouth once daily. losartan (COZAAR) 25 mg tablet Take 25 mg by mouth once daily. albuterol HFA (PROAIR HFA) 90 mcg/actuation inhaler inhale 1 puff by mouth every 4 hours as needed for wheezing/shortnessof breath. as directed fluticasone (FLONASE) 50 mcg/actuation nasal spray Use 1 [place] in each nostril daily at bedtime. No current facility-administered medications for this visit. Social History Tobacco Use Smoking status: Never Smokeless tobacco: Never Vaping Use Vaping status: Never Used Substance Use Topics Alcohol use: Yes Alcohol/week: 7.0 standard drinks of alcohol Types: 7 Glasses of Wine (5oz) per week Comment: glass of wine, 6/week Drug use: Never Family History Problem Relation Age of Onset Lipids Father Prostate Cancer Father 67 Hypertension Father Hypertension Mother Lipids Mother Psychiatry Mother Skin Cancer Mother Breast Cancer Mother 75 Asthma Brother Allergies Brother Heart Brother Cancer Maternal Grandfather metastatic, exposures Breast Cancer Maternal Grandmother 50 - 59 Diabetes Maternal Grandmother Cerebral Embolism Paternal Grandfather Stroke Paternal Grandfather Breast Cancer Other Cancer Maternal Uncle Testicular Prostate Cancer Maternal Uncle Ovarian cancer No Family History Colon Cancer No Family History other (mitral valve) No Family History Uterine Cancer No Family History Pancreatic Cancer No Family History ROS: Constitutional: Denies episodes of fever and night sweats. Not significantly fatigued. Normal appetite. Neuro: Denies vertigo, dizziness and imbalance. Denies symptoms of neuropathy. HEENT: No recent change in voice, vision or hearing. Resp: Denies cough, wheeze and hemoptysis. Denies shortness of breath at rest. Denies [place]. CVS: Denies exertional chest pain, PND, orthopnea and LE edema. GI: Denies dysphagia and odynophagia. Denies reflux, n/v, change in bowel habits and abdominal pain. : Denies dysuria or gross hematuria. Endo: Denies hot flashes. Denies polyuria and polydipsia. Denies heat and cold intolerance. Musculoskeletal: Denies bone, back, joint and muscular pain. Derm: Denies rash. Heme: Denies unusual bleeding and unexplained bruising. Psych: Normal mood. PHYSICAL EXAM: Vitals: Blood pressure 161/83, pulse 83, temperature 37.2 C (98.9 F), resp. rate 12, weight 66.2 kg (146 lb), last menstrual period 06/23/2024, SpO2 100%. Well-appearing and in no acute distress. EYES: Sclerae are anicteric bilaterally. LYMPHATIC: There is no palpable cervical, supraclavicular or axillary adenopathy. ABDOMEN: The abdomen is nondistended. 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 ASSESSMENT/PLAN: (C50.411) Malignant neoplasm of upper-outer quadrant of right female breast (HCC) (primary encounter diagnosis) Assessment: -History of a pT1a (0.11 mm; grade 1; no ALI) pN0(sln) (3 of 3 nodes negative) Mx ER/AK positive HER-2 negative invasive ductal carcinoma of the RIGHT breast. -BRCA 1/2 negative (04/2013). -Was on tamoxifen adjuvantly for nearly 2 years. Stopped secondary to side effects of hot flashes and mood swings. -History of a pT1b pN0 M0 ER/AK positive invasive lobular carcinoma the LEFT breast. -Did not take tamoxifen--see note 07/2019. -New cT1c cN0 ER/AK positive, HER2 negative invasive ductal carcinoma of the RIGHT breast. -s/p excision. - Difficult to know if new primary from remnant breast tissue or local recurrence of previous disease. Discussed the questionable utility of Oncotype testing and potential for chemotherapy if high risk. We discussed endocrine therapy and I recommended initiating with GnRH agonist therapy along with AI therapy. She had a tremendously difficult time with hot flashes previously on tamoxifen and stopped after approximately 2 years of treatment for her original breast cancer. She never started it for the diagnosis of the left-sided breast cancer. My concern would be if she goes into immediate menopause with oophorectomy and has significant menopausal symptoms, they would be irreversible. If tolerates GnRH agonist therapy well for couple months with AI then would definitely consider oophorectomy. - Encouraged her to proceed with radiation. Will presented tumor board. If consensus is for Oncotype, then we will order it. Otherwise plan on Eligard and after 1 month add AI therapy. Portions of this documentation were copied and pasted from my previous office visit note dated 05/31/2024 in order to provide a cohesive continuity of the history. The note has been reviewed and edited and updated as necessary. I spent a total of 30 minutes on the date of the service which included preparing to see the patient, [id number] patient care, completing clinical documentation, obtaining and/or reviewing separately obtained history, performing a medically appropriate examination, counseling and educating the patient/family/caregiver, ordering medications, tests, or procedures, communicating with other HCPs (not separately reported), and communicating results to the patient/family/caregiver. Jay Faust DO documented in this encounter [facility] 07-10-2024 Telephone encounter Note Patient called re: pathology results per Dr Corona. Margins negative. She was appreciative of call and denied any issues or concerns since surgery. She was reminded of post op follow up on 07/26 and knows to call in the interim with any changes. Brooke Raza RN [facility] 07-10-2024 Miscellaneous Notes Patient called re: pathology results per Dr Corona. Margins negative. She was appreciative of call and denied any issues or concerns since surgery. She was reminded of post op follow up on 07/26 and knows to call in the interim with any changes. Brooke Raza RN documented in this encounter [facility] 07-09-2024 Telephone encounter Note BREAST HEALTH NURSE POST-OP PHONE CONTACT: Cara Singh was contacted via telephone as follow-up from recent breast surgery. TOPICS ADDRESSED: PAIN ASSESSMENT: Yes LOCATION: surgical site, also bra and velcro causing discomfort. Discussed that she can wear her own soft, supportive bra now PAIN SCALE: 1 on a scale of 0-10 at rest, 6/10 with movement PAIN CHARACTER: soreness AGGRAVATING FACTORS: movement and surgical bra MEDICATIONS: Tylenol prn. Discussed alternating with Ibuprofen prn also. Marybeth stated understanding. EMOTIONAL ASSESSMENT: appropriate. ADJUSTMENT TO DIAGNOSIS AND TREATMENT: reflecting understanding. DRAIN CARE: Not applicable. Pt. does not have a drain in place. INCISION SITE: showered and surgical site WNL. NUTRITION: food intake: adequate. fluid intake: adequate. LYMPHEDEMA EDUCATION: not applicable. ACTIVITY AND EXERCISE: Understands there are no ROM limitations. Teach Back method of education performed. The patient verbalized understanding. FOLLOW UP: Reviewed post-op appts scheduled [facility] Work Phone: 07-09-2024 Miscellaneous Notes BREAST HEALTH NURSE POST-OP PHONE CONTACT: Cara Singh was contacted via telephone as follow-up from recent breast surgery. TOPICS ADDRESSED: PAIN ASSESSMENT: Yes LOCATION: surgical site, also bra and velcro causing discomfort. Discussed that she can wear her own soft, supportive bra now PAIN SCALE: 1 on a scale of 0-10 at rest, 6/10 with movement PAIN CHARACTER: soreness AGGRAVATING FACTORS: movement and surgical bra MEDICATIONS: Tylenol prn. Discussed alternating with Ibuprofen prn also. Marybeth stated understanding. EMOTIONAL ASSESSMENT: appropriate. ADJUSTMENT TO DIAGNOSIS AND TREATMENT: reflecting understanding. DRAIN CARE: Not applicable. Pt. does not have a drain in place. INCISION SITE: showered and surgical site WNL. NUTRITION: food intake: adequate. fluid intake: adequate. LYMPHEDEMA EDUCATION: not applicable. ACTIVITY AND EXERCISE: Understands there are no ROM limitations. Teach Back method of education performed. The patient verbalized understanding. FOLLOW UP: Reviewed post-op appts scheduled documented in this encounter [facility] 07-06-2024 Note HNO ID: [id number] Author: JOANNA VILLANUEVA APRN.MACEY Service: ? Author Type: Nurse School Laboratory Technician Type: Anesthesia Procedure Notes Filed: 07/06/2024 09:31 Note Text: ANESTHESIOLOGY PROCEDURE NOTE Airway General Information Procedure Start Time/Medication Administration: 07/06/2024 9:24 AM Procedure End Time: 07/06/2024 9:24 AM Patient location during procedure: OR Patient identity confirmed: patient sedated or unresponsive Staffing SPIN TANK TENDER: Joanna Villanueva APRN.SPIN TANK TENDER Performed by: MACEY Indications and Patient Condition Indications for airway management: anesthesia Preoxygenated: yes anesthesia circuit Patient position: sniffing Method: asleep Difficult Mask: No Final Airway Details Final airway type: supraglottic airway Number of attempts at approach: 1 Final Supraglottic Airway: IGEL Size 4 Seal Adequate: yes Airway not difficult SIGNATURE: Joannabisi Villanueva APRN.CRNA PATIENT NAME: Cara Singh DATE: July 06, 2024 TIME: 9:30 AM CSN: [id number] [facility] 07-04-2024 Telephone encounter Note Pre-op call placed to patient. All questions answered for upcoming surgery on Tuesday. Reminder given that surgery registration will call tomorrow afternoon for arrival time on Tuesday. Marybeth is aware breast nurse navigator will call on Tuesday for post-op follow-up. Catherine Arrington RN [facility] 07-04-2024 Miscellaneous Notes Pre-op call placed to patient. All questions answered for upcoming surgery on Tuesday. Reminder given that surgery registration will call tomorrow afternoon for arrival time on Tuesday. Marybeth is aware breast nurse navigator will call on Tuesday for post-op follow-up. Catherine Arrington RN documented in this encounter [facility] 06-29-2024 Telephone encounter Note Materials sent to patient. Catherine Arrington RN [facility] 06-29-2024 Miscellaneous Notes Materials sent to patient. Catherine Arrington RN documented in this encounter [facility] 06-29-2024 Note HNO ID: [id number] Author: CATHERINE ARRINGTON RN Service: ? Author Type: Registered Nurse Type: Progress Notes Filed: 06/29/2024 13:47 Note Text: AMBULATORY PATIENT EDUCATION NOTE for Cara Singh DIAGNOSIS: Right Breast Cancer EDUCATION TOPIC: Breast Cancer Surgery/ Right breast lumpectomy Virtual visit per patient request. READINESS TO LEARN: COGNITIVE ABILITY: Alert and oriented MOTIVATION TO LEARN: Eager and Interested FAMILY SUPPORT: INSTRUCTION PROVIDED TO: Patient PATIENT LEARNS BEST BY: Multiple Methods including written, verbal, diagrams, demonstration FACTORS AFFECTING LEARNING: none PHYSICAL LIMITATIONS AFFECTING LEARNING: none METHOD OF INSTRUCTION USED: Teach back method: Written instruction - handouts, Verbal instruction, Hands on Demonstration, Teach back response as well as feedback questions TEACHING POINTS : What to expect before surgery, the day of surgery, after surgery and upon discharge to home. Activity with attention to post operative range of motion exercises, deep breathing and walking Continue exercise program or at least a daily walk Nutrition and Hydration: Well balanced diet as tolerated and plenty of fluids Pain Control: as ordered by doctor Wound care: need to wear surgical bra reinforcing signs of infection (redness, warmth,pain, drainage, fever), keeping incision clean and dry Base line circumferential arm measurements were taken. PATIENT / FAMILY RESPONSE: Patient stated understanding of information received today. Appropriate return teach back response to questions FOLLOW-UP PLAN: Patient instructed to call with any further issues Recommend continued instruction and follow up as directed by patient's course of treatment and needs expressed. Questions answered. Marybeth is aware I will follow-up with her regarding question on back to work. Encouraged Marybeth to reach out anytime [facility] [place] 06-29-2024 History of Present illness Narrative AMBULATORY PATIENT EDUCATION NOTE for Cara Singh DIAGNOSIS: Right Breast Cancer EDUCATION TOPIC: Breast Cancer Surgery/ Right breast lumpectomy Virtual visit per patient request. READINESS TO LEARN: COGNITIVE ABILITY: Alert and oriented MOTIVATION TO LEARN: Eager and Interested FAMILY SUPPORT: INSTRUCTION PROVIDED TO: Patient PATIENT LEARNS BEST BY: Multiple Methods including written, verbal, diagrams, demonstration FACTORS AFFECTING LEARNING: none PHYSICAL LIMITATIONS AFFECTING LEARNING: none METHOD OF INSTRUCTION USED: Teach back method: Written instruction - handouts, Verbal instruction, Hands on Demonstration, Teach back response as well as feedback questions TEACHING POINTS : What to expect before surgery, the day of surgery, after surgery and upon discharge to home. Activity with attention to post operative range of motion exercises, deep breathing and walking Continue exercise program or at least a daily walk Nutrition and Hydration: Well balanced diet as tolerated and plenty of fluids Pain Control: as ordered by doctor Wound care: need to wear surgical bra reinforcing signs of infection (redness, warmth,pain, drainage, fever), keeping incision clean and dry Base line circumferential arm measurements were taken. PATIENT / FAMILY RESPONSE: Patient stated understanding of information received today. Appropriate return teach back response to questions FOLLOW-UP PLAN: Patient instructed to call with any further issues Recommend continued instruction and follow up as directed by patient's course of treatment and needs expressed. Questions answered. Marybeth is aware I will follow-up with her regarding question on back to work. Encouraged Marybeth to reach out anytime documented in this encounter [facility] 06-26-2024 History of Present illness Narrative Images from the original note were not included. [facility] Department of Medical Genetics Consultation Note Genetic Counselor: Em Swenson [facility] Patient: Cara Singh Patient Name and confirmed at initiation of visit. 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 The ACMG and NCCN do not recommend changing an individual s medical management based on the presence of this variant alone (Reynolds et al. 202). Given the conflicting information regarding this genetic variant, medical management for the patient and cancer screening for her relatives should?be based on family history and personal risk factors at this time. Please see below for additional details. IDENTIFICATION AND CHIEF COMPLAINT: Dr. Adam Corona requested a consultation for genetic counseling and risk assessment for Cara Singh, a 49 year old female, for discussion of her personal history of breast cancer and prior genetic testing results. She presents to clinic today to discuss the possibility of a genetic predisposition to cancer, and to further clarify her risks, as well as her family members' risks for cancer. 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 This was treated with right nipple-sparing mastectomy. She took tamoxifen for 2 years but stopped in 05/2015 due to significant hot flashes and mood swings. Cara Ramirez's clinical Integrated BRACAnalysis from 05/2013 was negative for a deleterious mutation. In 2019, at the age of 44, she was diagnosed with stage I invasive mammary carcinoma with lobular morphology of the left breast. This was treated with left nipple sparing mastectomy. She started Tamoxifen in 07/2019 and then stopped it in early 2020 due to side effects again. She underwent updated panel testing 04/2021 at [facility] via the [facility] He[facility] cancer test. 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 Additional details and recommendations for the low penetrance CHEK2 I157T variant are outlined below. Most recently, she was diagnosed with local only recurrence of the right breast cancer after an US of the right breast on 05/14/24 showed a 1.2 cm mass corresponding to a palpable mass. US guided core biopsy on 05/21/24 showed grade 2 invasive mammary carcinoma. Breast MRI from 06/04/24 showed known malignancy within the upper inner reconstructed right breast. CT C/A/P on 06/19/24 showed a nonspecific 1 cm soft tissue density in the medial upper right chest wall with no evidence for metastatic disease or lymphadenopathy. Plan for wide local excision of recurrence, no kalen mapping. Plan for adjuvant RT and endocrine therapy. 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 Raynaud phenomenon Rotator cuff strain rehab treatment finish 12/2012 Urinary calculus, unspecified 02/2010, 05/2019 ESWL Varicose veins of other sites PAST SURGICAL HISTORY Procedure Laterality Date BIOPSY BREAST 05/2013 right breast BREAST AUGMENTATION W/PROSTHETIC IMPLANT s/p R mastectomy; new implant 06/2014 COLPOSCOPY CERVIX UPPER/ADJACENT VAGINA 08/15/06 Colposcopy EXC/DSTRJ LINGUAL TONSIL ANY METHOD SPX INSERT INTRAUTERINE DEVICE 05/14/2010 mirena , REMOVED IUD REMOVAL 07/06/12 LITHOTRIPSY XTRCORP SHOCK WAVE 02/2010 Lithotripsy MASTECTOMY HX Left 07/2019 MASTECTOMY, SIMPLE, COMPLETE 06/20/2013 Dr. Garza right breast with sln bx and nipple sparing REVISION OF RECONSTRUCTED BREAST 06/18/14 CANCER SURVEILLANCE HISTORY: Colonoscopy: Yes 09/2021 negative per patient report, results not available for review. EGD: No GI Polyps: No Dermatology: No hx skin cancer REPRODUCTIVE HISTORY AND PERSONAL RISK ASSESSMENT FACTORS: Weight: Last 1 Encounter Wt Readings: Date: Wt: 06/07/2024 66.6 kg (146 lb 13.2 oz) Height: Last 1 Encounter Ht Readings: Date: Ht: 06/07/2024 165.7 cm (5' 5.24) Menarche was at age 12 Premenopausal Uterus Intact: Yes Ovaries Intact: Yes First live at age 32 She has not used HRT in the past. SOCIAL HISTORY: Social History Tobacco Use Smoking status: Never Smokeless tobacco: Never Vaping Use Vaping status: Never Used Substance Use Topics Alcohol use: Yes Alcohol/week: 7.0 standard drinks of alcohol Types: 7 Glasses of Wine (5oz) per week Comment: glass of wine, 6/week Drug use: Never FAMILY HISTORY: We obtained a detailed, 4-generation family history. Significant diagnoses are listed below: FAMILY HISTORY Problem Relation Age of Onset Lipids Father Prostate Cancer Father 67 Hypertension Father Hypertension Mother Lipids Mother Psychiatry Mother Skin Cancer Mother Breast Cancer Mother 75 Asthma Brother Allergies Brother Heart Brother Cancer Maternal Grandfather metastatic, exposures Breast Cancer Maternal Grandmother 50 - 59 Diabetes Maternal Grandmother Cerebral Embolism Paternal Grandfather Stroke Paternal Grandfather Breast Cancer Other Cancer Maternal Uncle Testicular Prostate Cancer Maternal Uncle Ovarian cancer No Family History Colon Cancer No Family History other (mitral valve) No Family History Uterine Cancer No Family History Pancreatic Cancer No Family History The patient's maternal ancestors are of Welsh and descent and paternal ancestors are of Green[place]ic, Somali, Easter descent. There is no known Ashkenazi Sikhism ancestry. There is no known consanguinity. Cancer Genetics 06/26/24 A copy of the patient's pedigree will be available under the scanned documents tab following today's visit. GENETIC COUNSELING RISK ASSESSMENT, DISCUSSION, AND SUGGESTED FOLLOW UP: We reviewed the natural history and genetic etiology of sporadic, familial and hereditary cancer syndromes. CHEK2 [id number] associated cancer risks: The CHEK2 [id number] variant is common in patients of ancestry. Some studies estimate that the CHEK2 Ssg001Vwn variant may lead to a slightly increased risk of breast cancer (18% lifetime risk versus 12% general population risk) and colon cancer (7% lifetime risk versus 4% general population risk) compared to general population risk. A recent study, however, did not find higher rates of colon cancer than in control groups (Nicole et al. 2022), and likewise, other studies have not identified carriers of this variant to have a substantial increased risk of breast cancer (Jatin et al. 2021). Due to these unclear findings, some labs classify this genetic variant as pathogenic (low penetrance), while others classify it as a variant of uncertain significance. The [employer] ([employer]) and the National Comprehensive Cancer Network (NCCN) do not recommend changing an individual s cancer screenings based on the presence of this variant alone (Reynolds et al. 2023). Given the conflicting information regarding this genetic variant, medical management for the patient and cancer screening for her relatives should?be based on family history and personal risk factors at this time. Genetic testing for this variant is not indicated for relatives. If this variant is determined to be pathogenic with known and defined clinical utility, then genetic testing for this mutation may be clinically useful for relatives at a later date. The patient was seen for a total of 30 minutes, greater than 50% of which was spent [id number] counseling. This plan is being carried out under the oversight of Dr. Vida Baron. This note will also be sent to the referring provider via the electronic medical record. GEOVANNA Carbajal CGC Licensed, Certified Genetic Counselor [facility] CC: Dr. Adam Baron documented in this encounter [facility] 06-26-2024 Note HNO ID: [id number] Author: EM SWENSON LGC Service: ? Author Type: Genetic Counselor Type: Progress Notes Filed: 06/29/2024 12:08 Note Text: [facility] Department of Medical Genetics Consultation Note Genetic Counselor: GEOVANNA Carbajal CGC Patient: Cara Singh Patient Name and confirmed at initiation of visit. 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 The ACMG and NCCN do not recommend changing an individual?s medical management based on the presence of this variant alone (Rodolfo et al. 2022). Given the conflicting information regarding this genetic variant, medical management for the patient and cancer screening for her relatives should?be based on family history and personal risk factors at this time. Please see below for additional details. IDENTIFICATION AND CHIEF COMPLAINT: Dr. Adam Corona requested a consultation for genetic counseling and risk assessment for Cara Singh, a 49 year old female, for discussion of her personal history of breast cancer and prior genetic testing results. She presents to clinic today to discuss the possibility of a genetic predisposition to cancer, and to further clarify her risks, as well as her family members' risks for cancer. HISTORY OF PRESENT ILLNESS: In 2013, at the age of 38, Craa Singh was diagnosed with stage I invasive ductal carcinoma of the right breast. This was treated with right nipple-sparing mastectomy. She took tamoxifen for 2 years but stopped in 05/2015 due to significant hot flashes and mood swings. Cara Ramirez's clinical Integrated BRACAnalysis from 05/2013 was negative for a deleterious mutation. In 2019, at the age of 44, she was diagnosed with stage I invasive mammary carcinoma with lobular morphology of the left breast. This was treated with left nipple sparing mastectomy. She started Tamoxifen in 07/2019 and then stopped it in early 2020 due to side effects again. She underwent updated panel testing 04/2021 at OSH via the [employer] Hereditary cancer test. 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 Additional details and recommendations for the low penetrance CHEK2 I157T variant are outlined below. Most recently, she was diagnosed with local only recurrence of the right breast cancer after an US of the right breast on 05/14/24 showed a 1.2 cm mass corresponding to a palpable mass. US guided core biopsy on 05/21/24 showed grade 2 invasive mammary carcinoma. Breast MRI from 06/04/24 showed known malignancy within the upper inner reconstructed right breast. CT C/A/P on 06/19/24 showed a nonspecific 1 cm soft tissue density in the medial upper right chest wall with no evidence for metastatic disease or lymphadenopathy. Plan for wide local excision of recurrence, no kalen mapping. Plan for adjuvant RT and endocrine therapy. 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 Raynaud phenomenon Rotator cuff strain rehab treatment finish 12/2012 Urinary calculus, unspecified 02/2010, 05/2019 ESWL Varicose veins of other sites PAST SURGICAL HISTORY Procedure Laterality Date BIOPSY BREAST 05/2013 right breast BREAST AUGMENTATION W/PROSTHETIC IMPLANT s/p R mastectomy; new implant 06/2014 COLPOSCOPY CERVIX UPPER/ADJACENT VAGINA 08/15/06 Colposcopy EXC/DSTRJ LINGUAL TONSIL ANY METHOD SPX INSERT INTRAUTERINE DEVICE 05/14/2010 mirena , REMOVED IUD REMOVAL 07/06/12 LITHOTRIPSY XTRCORP SHOCK WAVE 02/2010 Lithotripsy MASTECTOMY HX Left 07/2019 MASTECTOMY, SIMPLE, COMPLETE 06/20/2013 Dr. Garza right breast with sln bx and nipple sparing REVISION OF RECONSTRUCTED BREAST 06/18/14 CANCER SURVEILLANCE HISTORY: Colonoscopy: Yes / 09/2021 negative per patient report, results not available for review. EGD: No GI Polyps: No Dermatology: No hx skin cancer REPRODUCTIVE HISTORY AND PERSONAL RISK ASSESSMENT FACTORS: Weight: Last 1 Encounter Wt Readings: Date: Wt: 06/07/2024 66.6 kg (146 lb 13.2 oz) Height: Last 1 Encounter Ht Readings: Date: Ht: 06/07/2024 165.7 cm (5' 5.24) Menarche was at age 12 Premenopausal Uterus Intact: Yes Ovaries Intact: Yes First live at age 32 She has not used HRT in the past. SOCIAL HISTORY: Social History Tobacco Use Smoking status: Never Smokeless tobacco: Never Vaping Use Vaping status: Never Used (more content not included)... [facility] 06-25-2024 Telephone encounter Note See other phone note. Carol Ann Drake LPN [facility] 06-25-2024 Miscellaneous Notes See other phone note. Carol Ann Drake LPN Patient requesting 3/5 xray and ultrasound results. Informed patient they are still pending. She is asking for a call once completed. documented in this encounter [facility] 06-25-2024 Telephone encounter Note Message relayed to patient [facility] Work Phone: 06-25-2024 Miscellaneous Notes Message relayed to patient Left message for patient to contact office. A copy of this note and US results were faxed to PCP. Carol Ann Drake LPN Can let her know that the neck x-rays did not suggest any evidence of cancer. The ultrasound of the thyroid revealed two small benign-appearing nodules but according to standard recommendations, the radiologist recommended an annual ultrasound of the thyroid for up to 5 years to monitor for stability. This can be ordered by her PCP. Please fax a copy of this note and the ultrasound thyroid results to her PCP. Jay Faust DO documented in this encounter [facility] 06-25-2024 Telephone encounter Note Left message for patient to contact office. A copy of this note and US results were faxed to PCP. Carol Ann Drake LPN [facility] 06-25-2024 Instructions Walter Rich PA-C - 06/25/2024 9:09 AM EDT Images from the original note were not included. [facility]est[facility] PATIENT PREOPERATIVE INSTRUCTIONS Adam Corona DO has scheduled you for your procedure at this surgery center: [facility]: [phone] --[id number] [place] [address]. Please enter through the entrance closest to [facility]. Please read below carefully for your personalized instructions. Dietary Restrictions: - No solid food after midnight. - You may have 12 ounces of clear liquids (water, clear juices such as apple juice or gatorade, carbonated beverages, clear tea, black coffee, jello) until 2 hours before scheduled arrival at facility. Medications: Medications to take the day of surgery with a sip of water: none If Dr. Knox adds a new blood pressure medication, call Walter , If you start any new medications after today's visit, please contact the surgeon's office. If you are currently using a [id number] injectable or oral medication for diabetes or weight loss such as Dulaglutide (Trulicity), Exenatide (Byetta, Bydureon), Liraglutide (Victoza, Saxenda), Semaglutide (Ozempic, Wegovy, Rybelsus), or Tirzepatide (Mounjaro), the medicine should be stopped at least 7 days before surgery. These medicines can cause food to remain in your stomach for a very long time and increase the risks from surgery and anesthesia. Not stopping the medication for a long enough time may result in your surgery being rescheduled. Blood Thinning Medications: - Stop NSAIDS (Ibuprofen, Advil, Aleve, Motrin, Celebrex, Mobic, etc.) 7 days before surgery, as directed by your surgeon. - Stop Aspirin 7 days before surgery, as directed by your surgeon. - Stop ALL herbal and dietary supplements 7 days before surgery. - You may take Tylenol (Acetaminophen) or any of your pain medications that do not contain aspirin or NSAIDS as needed. Important Reminders: - If you use CPAP/BIPAP, bring the machine with you to the surgery center. - If you are prescribed inhalers for breathing, continue using them. - Candy, mints, and tobacco products are NOT permitted the morning of surgery. - Hearing aids, dentures and glasses may be worn the morning of surgery. - NO jewelry, body piercings, makeup, hairpins or contacts are to be worn the day of surgery. If you develop symptoms such as a fever, cold, or flu, or have other changes to your health within TWO DAYS of scheduled surgery or the morning of surgery, please contact the surgery center above. Personal Belongings: -Please have photo ID and insurance cards. -If you do not have a copy of advance directives on file with us, please bring a copy with you on the day of surgery. - Leave ALL valuables and money at home or with family members. - Please bring high-quality footwear, such as sneakers, to the hospital for ambulating post-surgery. For Outpatient Procedures: - YOU MUST HAVE A RESPONSIBLE DIRECTOR OF CAPITAL GIVING TAKE YOU HOME. A FURNITURE REPRODUCER OR CONSULTING NURSE CANNOT BE MADE A RESPONSIBLE DIRECTOR OF CAPITAL GIVING. - We recommend that a responsible person stays with you overnight to take care of you. - You cannot stay in a hotel alone after outpatient surgery. You will not be permitted to have your surgery, if you do not have someone to take care of you. Arrival Time for Surgery: - The Surgery Center or hospital where you are having surgery will call the afternoon before surgery (or Tuesday for Tuesday surgery) with a scheduled arrival time. - If you have not heard by 4 pm, please contact the surgery center above. Please be aware that emergency situations arise, which may delay or change your surgical time. If this happens, we will notify you as soon as possible and regret any inconvenience. If you already have an Advance Directive, please fax a copy to [phone] or email to for it to be added to your chart. If you do not have an Advance Directive, you can find the appropriate form and more information at [email or web address]. We recommend that you complete the Advance Directive form found on the website and bring it with you the day of your surgery. It can be witnessed and scanned into your chart that day. Walter Rich PA-C [phone] documented in this encounter [facility] 06-25-2024 History and physical note Images from the original note were not included. [facility] HISTORY AND PHYSICAL EXAMINATION SERVICE DATE: 06/25/2024 SERVICE TIME: 8:40 AM PRIMARY CARE PHYSICIAN: Neena Knox MD Assessment Patient has the following medical conditions which may affect dayana-operative course: Essential hypertension Assessment: compliant with medication, pt plans to reach out to PCP office about recent elevated readings Last BP Last Encounter BP Readings: Date: BP: 06/20/2024 170/92 05/31/2024 172/78 05/04/2024 170/81 09/20/2023 134/80 09/15/2022 145/69 08/20/2021 144/84 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, estrogen receptor positive (HCC) Assessment: s/p left mastectomy 07/2019- no chemo or radiation Malignant 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, estrogen receptor positive (HCC) Assessment: s/p right mastectomy 2013 PONV (postoperative nausea and vomiting) Assessment: . ANESTHESIA FINDINGS: Intubation History: No history of difficult intubation Significant Anesthesia Considerations: potential postop nausea/vomiting Airway History: No history of difficult airway Garcia Activity Status Index: METS: Walk indoors, such as around the house (1.75 METs) Do light work around the house, such as dusting or washing dishes (2.70 METs) Take care of self; that is eating, dressing, bathing, using the toilet (2.75 METs) Walk a block or two on level ground (2.75 METs) Do moderate work around the house, such as vacuuming, sweeping floors, or carrying in groceries (3.50 METs) Do yardwork, such as raking leaves, weeding, or pushing a power mower (4.50 METs) Have sexual relations (5.25 METs) Climb a flight of stairs or walk up a hill (5.50 METs) DASI Score: 28.7 Patient denies any chest pain or undue shortness of breath with the above physical activity. Clinical Frailty Scale: 4. Apparently vulnerable STOP-Bang Score: Snores loudly Has or is being treated for high blood pressure Patient over 50 years old Denies feeling tired, fatigued, or sleepy during the daytime Has not been observed to stop breathing or choking/gasping during sleep BMI less than or equal to 35 kg/m^2 Does not have a large neck Non-male patient STOP-Bang Score: 3 I - PHYSICAL EVALUATION AIRWAY Patient intubated: No. Tracheostomy tube not present Mallampati: III. TM distance: >3 FB. Neck ROM: limited flexion. Mouth opening: adequate. Short neck: no. Additional comments: +pain with right rotation and flexion. Thick neck: no Lip Bite Test: II DENTAL Dental findings: teeth intact. II - ANESTHESIA PLAN Anesthetic plan additional comments: *PACC/TCI - anesthesia choice. Beta Ayana Monitoring Plan Post Procedure Analgesic Plan Prepared for Surgery: optimally prepared for surgery. CONSULTS: Patient does not require consults for optimization at this time Planned Anesthetic: anesthesia choice The Following Tests/Procedures Have Been Initiated: No orders of the defined types were placed in this encounter. This is a virtual visit using PolyActiva video visit. It required patient-provider interaction for the medical decision making as documented below. REASON FOR VISIT: Cara Singh is a 49 year old female who is scheduled for Procedure(s): LUMPECTOMY BREAST (Right) at the request of Dr. Adam Corona for consultation. My final recommendation will be communicated back to the requesting physician by way of shared medical record or letter. Subjective The patient has the following: COVID-19 Immunization Status Current Care Gaps Covid-19 Vaccine ( season) Never done No completion, postpone, frequency change, or communication history exists for this topic. CHIEF COMPLAINT: Recurrent breast cancer, right HPI: Cara Singh is a 49 year old female who is scheduled for Right - LUMPECTOMY BREAST at the request of Dr. Adam Corona for 07/06/2024. She reports history of bilateral breast cancer, s/p mastectomies in the past. She states that in 04/2024 she noticed a small, right breast mass. She denies any dimpling of skin. She denies any recent fever or chills. This is a virtual visit. The visit was conducted using PolyActiva video visit. It required patient-provider interaction for the medical decision making as documented below. I have communicated my name and active licensure. The patient's identity and physical location were verified at the time of this visit. Either the patient or their legal personnel representative has been informed of the risks and benefits of and alternatives to treatment through a remote evaluation and consents to proceed with the evaluation remotely. REVIEW OF SYSTEMS: General: No weight loss, malaise or fevers. Neurological: No history of TIA's, stroke, MAGNETIC PROSPECTING SUPERVISOR tumor, impaired sensorium, hemiplegia, paraplegia or quadraplegia. No neurological symptoms or problems. Respiratory: No history of current cough or dyspnea, or pneumonia in the past 6 weeks. No history of respiratory/pulmonary symptoms or problems. Cardiovascular: Positive for: hypertension Negative for: atrial fibrillation, CAD, chest pain and DVT/PE. GI: No history of GI symptoms or problems. No history of esophageal varices, recent ascites, or ETOH greater than 2 drinks per day. : No history of dysuria, frequency or incontinence, stones or chronic kidney disease. No difficulty urinating, nocturia > 1 time per night or hematuria. CV RN: Negative for abnormal vaginal bleeding, abnormal vaginal discharge. Endocrine: +thyroid nodule - recent imaging Negative for: diabetes mellitus and hypothyroidism. Hematology: No history of bleeding or clotting disorder. Patient is not taking anti-coagulation or platelet medications. No history of hematological symptoms or problems. Oncology: +breast cancer - s/p bilateral mastectomies Psych: No history of psychiatric symptoms or problems. Musculoskeletal: Positive for: back pain (neck). Skin: Negative for lesions, rash and itching. 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 Raynaud phenomenon Rotator cuff strain rehab treatment finish 12/2012 Urinary calculus, unspecified 02/2010, 05/2019 ESWL Varicose veins of other sites PAST SURGICAL HISTORY Procedure Laterality Date BIOPSY BREAST 05/2013 right breast BREAST AUGMENTATION W/PROSTHETIC IMPLANT s/p R mastectomy; new implant 06/2014 COLPOSCOPY CERVIX UPPER/ADJACENT VAGINA 08/15/06 Colposcopy EXC/DSTRJ LINGUAL TONSIL ANY METHOD SPX INSERT INTRAUTERINE DEVICE 05/14/2010 mirena , REMOVED IUD REMOVAL 07/06/12 LITHOTRIPSY XTRCORP SHOCK WAVE 02/2010 Lithotripsy MASTECTOMY HX Left 07/2019 MASTECTOMY, SIMPLE, COMPLETE 06/20/2013 Dr. Garza right breast with sln bx and nipple sparing REVISION OF RECONSTRUCTED BREAST 06/18/14 FAMILY HISTORY Problem Relation Age of Onset Lipids Father Prostate Cancer Father 67 Hypertension Father Hypertension Mother Lipids Mother Psychiatry Mother Skin Cancer Mother Breast Cancer Mother Asthma Brother Allergies Brother Heart Brother Cancer Maternal Grandfather Breast Cancer Maternal Grandmother dx 50's Diabetes Maternal Grandmother Cerebral Embolism Paternal Grandfather Stroke Paternal Grandfather Breast Cancer Maternal Aunt Mother's half sister. of breast cancer Brain Cancer Paternal Uncle Ovarian cancer No Family History Colon Cancer No Family History other (mitral valve) No Family History Uterine Cancer No Family History Pancreatic Cancer No Family History Social History Tobacco Use Smoking status: Never Smokeless tobacco: Never Vaping Use Vaping status: Never Used Substance Use Topics Alcohol use: Yes Alcohol/week: 7.0 standard drinks of alcohol Types: 7 Glasses of Wine (5oz) per week Comment: glass of wine, 6/week Drug use: Never Prior to Admission medications as of 06/25/24 0948 Medication Sig Last Dose Taking valACYclovir (VALTREX) 1 gram tablet TAKE TWO TABLETS BY MOUTH TWICE DAILY for TWO days NEEDED for cold SORE Yes loratadine (CLARITIN) 10 mg tablet Take 10 mg by mouth once daily. Yes losartan (COZAAR) 25 mg tablet Take 25 mg by mouth once daily. Yes albuterol HFA (PROAIR HFA) 90 mcg/actuation inhaler inhale 1 puff by mouth every 4 hours as needed for wheezing/shortnessof breath. as directed Yes fluticasone (FLONASE) 50 mcg/actuation nasal spray Use 1 [place] in each nostril daily at bedtime. Yes iv contrast (will be provided with radiology test) CT ABD/PEL -Inject, intravenously, once for 1 dose.No IV access, insert saline lock prior to the beginning of sedation, infusion, injection of imaging exam. Discontinue saline lock post exam. If Pt. has a central line or IVAD, may access for administration according to line specific nursing protocol. Once exam is complete flush line and de-access according to line specific nursing protocol in the CT contrast administration guidelines link. enteric contrast (will be provided with radiology test) For CT ABD/PEL W IVCON Routine order Administer, As Directed One Time Only, via Oral, Rectal, both Oral and Rectal, Enteric Tube, Stoma or Indwelling Catheter, Enteric Contrast as designated per enteric contrast guidelines iv contrast (will be provided with radiology test) CT Chest W -Inject, intravenously, once for 1 dose.No IV access, insert saline lock prior to the beginning of sedation, infusion, injection of imaging exam. Discontinue saline lock post exam. If Pt. has a central line or IVAD, may access for administration according to line specific nursing protocol. Once exam is complete flush line and de-access according to line specific nursing protocol in the CT contrast administration guidelines link. Medication Comments documented by Cale Villeda RPh on 06/21/2013 at 0318. a ALLERGIES No Known Allergies Objective PHYSICAL EXAM: (if completed, exam performed via video enabled technology) General: alert and oriented and healthy appearance. Pertinent negatives noted - not distressed. Skin: normal color, no rash or lesions. HEENT: EOM intact and pupils equal round. Throat; OROPHARYNX: moist mucus membranes. Neck; full ROM, no cervical LNs noted. Cardiovascular: Pulse characterized as regular.RRR, confirmed with radial pulse exam. Respiratory: Breathing non-labored . Abdomen: Pertinent negatives noted - not tender. Extremities: no deformity, no edema or tenderness, no joint swelling or clubbing. Neurological: normal cognition and motor skills. PAIN ASSESSMENT: VITALS: Ht 5' 5 (1.65m) Wt 145 lb (65.8kg) LMP 06/23/2024 BMI 24.13 kg/(m^2). Diagnostic tests reviewed for today's visit: Lab Value Units Date High Low HB No results within date range. HCT No results within date range. WBC No results within date range. PLT No results within date range. NA No results within date range. K No results within date range. GLUC No results within date range. BUN No results within date range. CREAT No results within date range. PTSEC No results within date range. INR No results within date range. APTT No results within date range. ALT No results within date range. AST No results within date range. TBILI No results within date range. TSH No results within date range. Lab Value Units Date High Low HCGQT No results within date range. UHCG No results within date range. HCG, BODY* No results within date range. Lab Value Units Date High Low ABORHD No results within date range. ABSCREEN No results within date range. No results found for: HBA1C No results found for this or any previous visit (from the past 8760 hours). No results found for this or any previous visit (from the past 15015 hours). Instructions Given to Patient: Instructions located in the after visit summary. Patient given verbal and written preop instructions and voices comprehension and compliance. SIGNATURE: Walter Rich PA-C PATIENT NAME: Cara Singh DATE: June 25, 2024 TIME: 9:50 AM PAGER/CONTACT #: [facility] 06-25-2024 History and physical note Images from the original note were not included. [facility] HISTORY AND PHYSICAL EXAMINATION SERVICE DATE: 06/25/2024 SERVICE TIME: 8:40 AM PRIMARY CARE PHYSICIAN: Neena Knox MD Assessment Patient has the following medical conditions which may affect dayana-operative course: Essential hypertension Assessment: compliant with medication, pt plans to reach out to PCP office about recent elevated readings Last BP Last Encounter BP Readings: Date: BP: 06/20/2024 170/92 05/31/2024 172/78 05/04/2024 170/81 09/20/2023 134/80 09/15/2022 145/69 08/20/2021 144/84 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, estrogen receptor positive (HCC) Assessment: s/p left mastectomy 07/2019- no chemo or radiation Malignant 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, estrogen receptor positive (HCC) Assessment: s/p right mastectomy 2013 PONV (postoperative nausea and vomiting) Assessment: . ANESTHESIA FINDINGS: Intubation History: No history of difficult intubation Significant Anesthesia Considerations: potential postop nausea/vomiting Airway History: No history of difficult airway Garcia Activity Status Index: METS: Walk indoors, such as around the house (1.75 METs) Do light work around the house, such as dusting or washing dishes (2.70 METs) Take care of self; that is eating, dressing, bathing, using the toilet (2.75 METs) Walk a block or two on level ground (2.75 METs) Do moderate work around the house, such as vacuuming, sweeping floors, or carrying in groceries (3.50 METs) Do yardwork, such as raking leaves, weeding, or pushing a power mower (4.50 METs) Have sexual relations (5.25 METs) Climb a flight of stairs or walk up a hill (5.50 METs) DASI Score: 28.7 Patient denies any chest pain or undue shortness of breath with the above physical activity. Clinical Frailty Scale: 4. Apparently vulnerable STOP-Bang Score: Snores loudly Has or is being treated for high blood pressure Patient over 50 years old Denies feeling tired, fatigued, or sleepy during the daytime Has not been observed to stop breathing or choking/gasping during sleep BMI less than or equal to 35 kg/m^2 Does not have a large neck Non-male patient STOP-Bang Score: 3 I - PHYSICAL EVALUATION AIRWAY Patient intubated: No. Tracheostomy tube not present Mallampati: III. TM distance: >3 FB. Neck ROM: limited flexion. Mouth opening: adequate. Short neck: no. Additional comments: +pain with right rotation and flexion. Thick neck: no Lip Bite Test: II DENTAL Dental findings: teeth intact. II - ANESTHESIA PLAN Anesthetic plan additional comments: *PACC/TCI - anesthesia choice. Beta Ayana Monitoring Plan Post Procedure Analgesic Plan Prepared for Surgery: optimally prepared for surgery. CONSULTS: Patient does not require consults for optimization at this time Planned Anesthetic: anesthesia choice The Following Tests/Procedures Have Been Initiated: No orders of the defined types were placed in this encounter. This is a virtual visit using PolyActiva video visit. It required patient-provider interaction for the medical decision making as documented below. REASON FOR VISIT: Cara Singh is a 49 year old female who is scheduled for Procedure(s): LUMPECTOMY BREAST (Right) at the request of Dr. Adam Corona for consultation. My final recommendation will be communicated back to the requesting physician by way of shared medical record or letter. Subjective The patient has the following: COVID-19 Immunization Status Current Care Gaps Covid-19 Vaccine ( season) Never done No completion, postpone, frequency change, or communication history exists for this topic. CHIEF COMPLAINT: Recurrent breast cancer, right HPI: Cara Singh is a 49 year old female who is scheduled for Right - LUMPECTOMY BREAST at the request of Dr. Adam Corona for 07/06/2024. She reports history of bilateral breast cancer, s/p mastectomies in the past. She states that in 04/2024 she noticed a small, right breast mass. She denies any dimpling of skin. She denies any recent fever or chills. This is a virtual visit. The visit was conducted using PolyActiva video visit. It required patient-provider interaction for the medical decision making as documented below. I have communicated my name and active licensure. The patient's identity and physical location were verified at the time of this visit. Either the patient or their legal personnel representative has been informed of the risks and benefits of and alternatives to treatment through a remote evaluation and consents to proceed with the evaluation remotely. REVIEW OF SYSTEMS: General: No weight loss, malaise or fevers. Neurological: No history of TIA's, stroke, MAGNETIC PROSPECTING SUPERVISOR tumor, impaired sensorium, hemiplegia, paraplegia or quadraplegia. No neurological symptoms or problems. Respiratory: No history of current cough or dyspnea, or pneumonia in the past 6 weeks. No history of respiratory/pulmonary symptoms or problems. Cardiovascular: Positive for: hypertension Negative for: atrial fibrillation, CAD, chest pain and DVT/PE. GI: No history of GI symptoms or problems. No history of esophageal varices, recent ascites, or ETOH greater than 2 drinks per day. : No history of dysuria, frequency or incontinence, stones or chronic kidney disease. No difficulty urinating, nocturia > 1 time per night or hematuria. CV RN: Negative for abnormal vaginal bleeding, abnormal vaginal discharge. Endocrine: +thyroid nodule - recent imaging Negative for: diabetes mellitus and hypothyroidism. Hematology: No history of bleeding or clotting disorder. Patient is not taking anti-coagulation or platelet medications. No history of hematological symptoms or problems. Oncology: +breast cancer - s/p bilateral mastectomies Psych: No history of psychiatric symptoms or problems. Musculoskeletal: Positive for: back pain (neck). Skin: Negative for lesions, rash and itching. 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 Raynaud phenomenon Rotator cuff strain rehab treatment finish 12/2012 Urinary calculus, unspecified 02/2010, 05/2019 ESWL Varicose veins of other sites PAST SURGICAL HISTORY Procedure Laterality Date BIOPSY BREAST 05/2013 right breast BREAST AUGMENTATION W/PROSTHETIC IMPLANT s/p R mastectomy; new implant 06/2014 COLPOSCOPY CERVIX UPPER/ADJACENT VAGINA 08/15/06 Colposcopy EXC/DSTRJ LINGUAL TONSIL ANY METHOD SPX INSERT INTRAUTERINE DEVICE 05/14/2010 mirena , REMOVED IUD REMOVAL 07/06/12 LITHOTRIPSY XTRCORP SHOCK WAVE 02/2010 Lithotripsy MASTECTOMY HX Left 07/2019 MASTECTOMY, SIMPLE, COMPLETE 06/20/2013 Dr. Garza right breast with sln bx and nipple sparing REVISION OF RECONSTRUCTED BREAST 06/18/14 FAMILY HISTORY Problem Relation Age of Onset Lipids Father Prostate Cancer Father 67 Hypertension Father Hypertension Mother Lipids Mother Psychiatry Mother Skin Cancer Mother Breast Cancer Mother Asthma Brother Allergies Brother Heart Brother Cancer Maternal Grandfather Breast Cancer Maternal Grandmother dx 50's Diabetes Maternal Grandmother Cerebral Embolism Paternal Grandfather Stroke Paternal Grandfather Breast Cancer Maternal Aunt Mother's half sister. of breast cancer Brain Cancer Paternal Uncle Ovarian cancer No Family History Colon Cancer No Family History other (mitral valve) No Family History Uterine Cancer No Family History Pancreatic Cancer No Family History Social History Tobacco Use Smoking status: Never Smokeless tobacco: Never Vaping Use Vaping status: Never Used Substance Use Topics Alcohol use: Yes Alcohol/week: 7.0 standard drinks of alcohol Types: 7 Glasses of Wine (5oz) per week Comment: glass of wine, 6/week Drug use: Never Prior to Admission medications as of 06/25/24 0948 Medication Sig Last Dose Taking valACYclovir (VALTREX) 1 gram tablet TAKE TWO TABLETS BY MOUTH TWICE DAILY for TWO days NEEDED for cold SORE Yes loratadine (CLARITIN) 10 mg tablet Take 10 mg by mouth once daily. Yes losartan (COZAAR) 25 mg tablet Take 25 mg by mouth once daily. Yes albuterol HFA (PROAIR HFA) 90 mcg/actuation inhaler inhale 1 puff by mouth every 4 hours as needed for wheezing/shortnessof breath. as directed Yes fluticasone (FLONASE) 50 mcg/actuation nasal spray Use 1 [place] in each nostril daily at bedtime. Yes iv contrast (will be provided with radiology test) CT ABD/PEL -Inject, intravenously, once for 1 dose.No IV access, insert saline lock prior to the beginning of sedation, infusion, injection of imaging exam. Discontinue saline lock post exam. If Pt. has a central line or IVAD, may access for administration according to line specific nursing protocol. Once exam is complete flush line and de-access according to line specific nursing protocol in the CT contrast administration guidelines link. enteric contrast (will be provided with radiology test) For CT ABD/PEL W IVCON Routine order Administer, As Directed One Time Only, via Oral, Rectal, both Oral and Rectal, Enteric Tube, Stoma or Indwelling Catheter, Enteric Contrast as designated per enteric contrast guidelines iv contrast (will be provided with radiology test) CT Chest W -Inject, intravenously, once for 1 dose.No IV access, insert saline lock prior to the beginning of sedation, infusion, injection of imaging exam. Discontinue saline lock post exam. If Pt. has a central line or IVAD, may access for administration according to line specific nursing protocol. Once exam is complete flush line and de-access according to line specific nursing protocol in the CT contrast administration guidelines link. Medication Comments documented by Cale Villeda RPh on 06/21/2013 at 0318. a ALLERGIES No Known Allergies Objective PHYSICAL EXAM: (if completed, exam performed via video enabled technology) General: alert and oriented and healthy appearance. Pertinent negatives noted - not distressed. Skin: normal color, no rash or lesions. HEENT: EOM intact and pupils equal round. Throat; OROPHARYNX: moist mucus membranes. Neck; full ROM, no cervical LNs noted. Cardiovascular: Pulse characterized as regular.RRR, confirmed with radial pulse exam. Respiratory: Breathing non-labored . Abdomen: Pertinent negatives noted - not tender. Extremities: no deformity, no edema or tenderness, no joint swelling or clubbing. Neurological: normal cognition and motor skills. PAIN ASSESSMENT: VITALS: Ht 5' 5 (1.65m) Wt 145 lb (65.8kg) LMP 06/23/2024 BMI 24.13 kg/(m^2). Diagnostic tests reviewed for today's visit: Lab Value Units Date High Low HB No results within date range. HCT No results within date range. WBC No results within date range. PLT No results within date range. NA No results within date range. K No results within date range. GLUC No results within date range. BUN No results within date range. CREAT No results within date range. PTSEC No results within date range. INR No results within date range. APTT No results within date range. ALT No results within date range. AST No results within date range. TBILI No results within date range. TSH No results within date range. Lab Value Units Date High Low HCGQT No results within date range. UHCG No results within date range. HCG, BODY* No results within date range. Lab Value Units Date High Low ABORHD No results within date range. ABSCREEN No results within date range. No results found for: HBA1C No results found for this or any previous visit (from the past 8760 hours). No results found for this or any previous visit (from the past 07385 hours). Instructions Given to Patient: Instructions located in the after visit summary. Patient given verbal and written preop instructions and voices comprehension and compliance. SIGNATURE: Walter Rich PA-C PATIENT NAME: Cara Singh DATE: June 25, 2024 TIME: 9:50 AM PAGER/CONTACT #: documented in this encounter [facility] 06-24-2024 Telephone encounter Note Can let her know that the neck x-rays did not suggest any evidence of cancer. The ultrasound of the thyroid revealed two small benign-appearing nodules but according to standard recommendations, the radiologist recommended an annual ultrasound of the thyroid for up to 5 years to monitor for stability. This can be ordered by her PCP. Please fax a copy of this note and the ultrasound thyroid results to her PCP. Jay Faust DO [facility] 06-22-2024 Telephone encounter Note Patient requesting 3/5 xray and ultrasound results. Informed patient they are still pending. She is asking for a call once completed. [facility] Work Phone: 06-21-2024 Telephone encounter Note Spoke to patient, confirmed her surgery date and appointments related to her procedure with Dr. Corona on 07/06/24. [facility] 06-21-2024 Miscellaneous Notes Spoke to patient, confirmed her surgery date and appointments related to her procedure with Dr. Corona on 07/06/24. documented in this encounter [facility] 06-20-2024 Note HNO ID: [id number] Author: ADAM CORONA DO Service: ? Author Type: Physician Type: Progress Notes Filed: 06/20/2024 13:27 Note Text: BREAST SURGICAL ONCOLOGY I have communicated my name and active licensure. The patient's identity and physical location were verified at the time of this visit. Either the patient or their legal personnel representative has been informed of the risks and benefits of -- and alternatives to -- treatment through a remote evaluation and consents to proceed with the evaluation remotely. CHIEF COMPLAINT: Patient presents with: Breast Cancer Follow Up INTERVAL HISTORY: Ioana underwent staging scans - has thyroid US and cervical spine xrays done today. She met with radiation oncology. She is scheduled with genetics 06/26. HISTORY: Cara Singh is a 49 year old female who presents for an evaluation of a recurrence of right breast cancer. She found a lump in the right breast in April of this year. She was sent for breast imaging. Diagnosis was made at [facility] by means of ultrasound-guided core biopsy of Right breast. 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 Cara Singh presents with her Fly for evaluation and treatment recommendations. She did well with biopsy. She denies palpable mass, nipple discharge, or overlying skin changes. She had second look ultrasound today after MRI. She took endocrine therapy for 1-2 years after her right breast cancer in 2013, but not after her left breast cancer in 2019. Per Radha Christianson PA-C note: In 2013, she had Stage l (pT1a N0) right invasive ductal carcinoma. 03/2013 screening mammogram was abnormal for which subsequent right diagnostic imaging revealed a cluster of calcifications in the UOQ near the nipple. 04/2013 right mammotome biopsy revealed Grade 2 IDC, ER+(>95%)/AK+(80%)/HER2-. 04/2013 breast MRI revealed bilateral enlarged axillary LNs. 06/2013 right nipple-sparing mastectomy/SLNB and TE placement by Drs. Garza/Brodie revealed Grade 2 IDC, 1.1 mm. Margins were negative (closest 9 mm). 0/3 SLN were involved. No LVI. She took tamoxifen for 2 years but stopped in 05/2015 due to significant hot flashes and mood swings. 11/2013 she had a right TE exchange for permanent smooth round silicone retropectoral implant and left breast augmentation with smooth round silicone retropectoral implant, and 06/2014 she had right reconstructed breast revision and an implant exchange bilaterally by Dr. Chirinos. In 2019, she had Stage 1 (pT1b N0 M0) left invasive mammary carcinoma in the upper outer quadrant of breast. At OSH she had an abnormal screening mammogram in 04/2019 for which left US revealed a 9 mm lobulated mass at 2:00, 5 cmfn. 06/2019 left ultrasound guided core biopsy at OSH showed Grade 1 Invasive mammary carcinoma with ductal and lobular features, ER+(90%)/AK+(80%)/HER2-. 07/2019 left nipple sparing mastectomy/SLNB and TE placement with removal of implant by Drs. Garza/Brodie showed an 8 mm Grade 1 Invasive mammary carcinoma with lobular morphology. 0/3 SLNB were involved. Margins were negative (closest 4 mm). No LVI. 10/2019 she had a TE exchange for a permanent smooth round silicone retropectoral implant by Dr. Chirinos. Oncotype RS was 14 corresponding to a 4% risk of distant recurrence at 10 years; thus chemotherapy was not recommended. She started Tamoxifen in 07/2019 and then stopped it in early 2020 due to side effects again. She is not interested in going back on any type of medication. She has not seen Med/Onc Dr. Faust since 2019. She reports that she was advised there isn't a significant benefit of taking Tamoxifen following mastectomies. 05/2013 Cara Ramirez's clinical Integrated BRACAnalysis was negative for a deleterious mutation. 04/2021 she returned for panel testing at OSH. She shared the results with me which were uploaded into the chart. 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 Smoker: No As part of today's visit, I have reviewed and updated as necessary: Current medication list, Past Medical History, Past Surgical History, Allergies, Family History, Social History, and OBGYN History HISTORY OF BREAST PROCEDURE(S): Breast biopsy: Yes, as above Breast cysts: No Breast surgery: Yes, as above Breast cancer: Yes, as above. OBSTETRIC RELATED HISTORY: Patient did breast feed Age at of First Child: 31 years of age. Age at Onset of Menses: Patient does not remember. Age at Menopause: The patient is not menopausal at this time. P: 2 Patient's last menstrual period was 05/01/2024 (exact date). Exogenous Hormone Use: Tamoxifen x 1-2 years last taken ~0643-4785 IUD - in the past (more than 20 years ago) FAMILY HISTORY: The patient is not of Ashkenazic Ancestry Breast cancer: Maternal Grandmother, mother and ma (more content not included)... [facility] 06-20-2024 History of Present illness Narrative Images from the original note were not included. BREAST SURGICAL ONCOLOGY I have communicated my name and active licensure. The patient's identity and physical location were verified at the time of this visit. Either the patient or their legal personnel representative has been informed of the risks and benefits of -- and alternatives to -- treatment through a remote evaluation and consents to proceed with the evaluation remotely. CHIEF COMPLAINT: Patient presents with: Breast Cancer Follow Up INTERVAL HISTORY: Ioana underwent staging scans - has thyroid US and cervical spine xrays done today. She met with radiation oncology. She is scheduled with genetics 06/26. HISTORY: Cara Singh is a 49 year old female who presents for an evaluation of a recurrence of right breast cancer. She found a lump in the right breast in April of this year. She was sent for breast imaging. Diagnosis was made at [facility] by means of ultrasound-guided core biopsy of Right breast. 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 Cara Singh presents with her Fly for evaluation and treatment recommendations. She did well with biopsy. She denies palpable mass, nipple discharge, or overlying skin changes. She had second look ultrasound today after MRI. She took endocrine therapy for 1-2 years after her right breast cancer in 2013, but not after her left breast cancer in 2019. Per Radha Christianson PA-C note: In 2013, she had Stage l (pT1a N0) right invasive ductal carcinoma. 03/2013 screening mammogram was abnormal for which subsequent right diagnostic imaging revealed a cluster of calcifications in the UOQ near the nipple. 04/2013 right mammotome biopsy revealed Grade 2 IDC, ER+(>95%)/AK+(80%)/HER2-. 04/2013 breast MRI revealed bilateral enlarged axillary LNs. 06/2013 right nipple-sparing mastectomy/SLNB and TE placement by Drs. Garza/Brodie revealed Grade 2 IDC, 1.1 mm. Margins were negative (closest 9 mm). 0/3 SLN were involved. No LVI. She took tamoxifen for 2 years but stopped in 05/2015 due to significant hot flashes and mood swings. 11/2013 she had a right TE exchange for permanent smooth round silicone retropectoral implant and left breast augmentation with smooth round silicone retropectoral implant, and 06/2014 she had right reconstructed breast revision and an implant exchange bilaterally by Dr. Chirinos. In 2019, she had Stage 1 (pT1b N0 M0) left invasive mammary carcinoma in the upper outer quadrant of breast. At OSH she had an abnormal screening mammogram in 04/2019 for which left US revealed a 9 mm lobulated mass at 2:00, 5 cmfn. 06/2019 left ultrasound guided core biopsy at OSH showed Grade 1 Invasive mammary carcinoma with ductal and lobular features, ER+(90%)/AK+(80%)/HER2-. 07/2019 left nipple sparing mastectomy/SLNB and TE placement with removal of implant by Drs. Garza/Brodie showed an 8 mm Grade 1 Invasive mammary carcinoma with lobular morphology. 0/3 SLNB were involved. Margins were negative (closest 4 mm). No LVI. 10/2019 she had a TE exchange for a permanent smooth round silicone retropectoral implant by Dr. Chirinos. Oncotype RS was 14 corresponding to a 4% risk of distant recurrence at 10 years; thus chemotherapy was not recommended. She started Tamoxifen in 07/2019 and then stopped it in early 2020 due to side effects again. She is not interested in going back on any type of medication. She has not seen Med/Onc Dr. Faust since 2019. She reports that she was advised there isn't a significant benefit of taking Tamoxifen following mastectomies. 05/2013 Cara Ramirez's clinical Integrated BRACAnalysis was negative for a deleterious mutation. 04/2021 she returned for panel testing at OSH. She shared the results with me which were uploaded into the chart. 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 Smoker: No As part of today's visit, I have reviewed and updated as necessary: Current medication list, Past Medical History, Past Surgical History, Allergies, Family History, Social History, and OBGYN History HISTORY OF BREAST PROCEDURE(S): Breast biopsy: Yes, as above Breast cysts: No Breast surgery: Yes, as above Breast cancer: Yes, as above. OBSTETRIC RELATED HISTORY: Patient did breast feed Age at of First Child: 31 years of age. Age at Onset of Menses: Patient does not remember. Age at Menopause: The patient is not menopausal at this time. P: 2 Patient's last menstrual period was 05/01/2024 (exact date). Exogenous Hormone Use: Tamoxifen x 1-2 years last taken ~4656-3638 IUD - in the past (more than 20 years ago) FAMILY HISTORY: The patient is not of Ashkenazic Ancestry Breast cancer: Maternal Grandmother, mother and maternal aunt (moms half sister) Prostate cancer: father (non metastatic) REVIEW OF SYSTEMS: GENERAL: No weight loss, malaise or fevers HEENT: Negative for frequent or significant headaches, No changes in hearing or vision, no nose bleeds or other nasal problems RESPIRATORY: Negative for cough, hemoptysis, wheezing, COPD, dyspnea or shortness of breath CARDIOVASCULAR: Negative for chest pain, leg swelling, hypertension, CHF or palpitations GASTROINTESTINAL: No nausea, vomiting, or diarrhea GENITOURINARY: No history of dysuria, frequency or incontinence GYNECOLOGICAL: Positive for abnormal vaginal bleeding starting in September of last year saw CV RN, no concerns at this time MUSCULOSKELETAL: joint pain or swelling (neck) INTEGUMENTARY:Denies Scleroderma or Lupus. Denies chronic skin conditions. PSYCHOLOGICAL: History of anxiety disorder: ~30 years ago. Patient feels she is coping well with recent Breast Cancer diagnosis. Negative for sleep disturbance, mood disorder and recent psychosocial stressors. All other reviewed and negative other than HPI. I reviewed the PMH, PSH, FHx, SHx, OBHx, and agree with the above. I reviewed the HPI and ROS in detail with the Patient and edited as above. OBJECTIVE: PHYSICAL EXAM: LMP 05/01/2024 (Exact Date) ECOG PERFORMANCE STATUS: 0- Fully active, able to carry on all pre-disease performance w/o restriction. PHYSICAL EXAM *performed via video enabled technology* Physical Exam: Constitutional: no distress Respiratory: respirations unlabored Cardiovascular: well perfused Skin: Skin color normal, warm, dry, no rashes Neurologic: alert and oriented, follows simple/complex commands Psych: mood and affect normal and appropriate Breasts: deferred IMAGING TO DATE: I have independently and personally reviewed the patient's breast imaging, specifically mammogram and ultrasound images noted below. I agree with findings of right breast mass, UIQ. CT and bone scans reviewed - thyroid US and C spine Xrays ordered. 05/14/2024 US right breast Targeted ultrasound of the right breast was performed for evaluation of the patient's palpable lump at 2:00 8 cm from the nipple. Corresponding with the palpable, there is an indistinct hypoechoic mass which measures 1.2 x 0.6 x 1.3 cm. No abnormalities are identified in the right axilla. 06/01/2024 breast MRI IMPRESSION: Known malignancy within the upper inner reconstructed right breast measuring 1.1 cm with associated artifact from Alida Coater Operator Insulation Board reflector. Surgical consultation is recommended. Oval enhancing mass along the upper outer aspect of the right breast implant, posterior depth, measuring 1.3 x 0.6 cm. While differential diagnosis includes an intramammary lymph node, second look ultrasound is recommended for further evaluation. If there is no sonographic correlate, surgical consultation would be recommended as this finding is not amenable to MRI-guided biopsy. A breast imaging nurse navigator will contact the patient to assist in scheduling second look ultrasound. 06/07/2024 US right breast Lymph node measuring 1.3 cm in the right breast at 10 o'clock, 8 cm from the nipple is benign. This correlates with the oval mass in the upper outer quadrant described on recent MRI dated 06/01/2024. Continued surgical consultation is recommended for the known malignancy in the right breast. The patient is under the care of Dr. Corona. PATHOLOGY RESULTS: FINAL DIAGNOSIS A: Breast, right, 2:00, 8 cmfn, 1.3 cm mass, ultrasound-guided biopsy with zipper setter chainstitch reflector placement: - Invasive mammary carcinoma, provisional [place] grade 2, measuring at least 3 mm in greatest dimension. Component ER status Positive (greater than 10%) ER % staining >90 Estrogen Receptor (Staining Intensity) Strong Estrogen Receptor Internal Control Present and Stained as Expected Estrogen Receptor External Control Present and Stained as Expected AK status Positive (greater than or equal to 1%) AK % staining 50 Progesterone Receptor (Staining Intensity) Moderate Progesterone Receptor Internal Control Present and Stained as Expected Progesterone Receptor External Control Present and Stained as Expected HER2 IHC Status Negative for HER2 Overexpression HER2 IHC Score 1+ Tumor Type Primary Invasive Breast Carcinoma Breast Tumor Grade Grade 2 GENETIC TESTING: ASSESSMENT: (C50.911) Recurrent breast cancer, right (HCC) (primary encounter diagnosis) Plan: CT ABD/PEL W IVCON, iv contrast (will be provided with radiology test), enteric contrast (will be provided with radiology test), CT CHEST W IVCON, iv contrast (will be provided with radiology test), NM BONE WHOLE BODY, BREAST TUMOR BOARD [facility] (Z85.3) Personal history of breast cancer Plan: CT ABD/PEL W IVCON, iv contrast (will be provided with radiology test), enteric contrast (will be provided with radiology test), CT CHEST W IVCON, iv contrast (will be provided with radiology test), NM BONE WHOLE BODY, BREAST TUMOR BOARD - FISHER Cancer Staging Cancer Staging (Hyperlink to Activity) Recurrent breast cancer, right (HCC) Staging form: Breast, AJCC 8th Edition - Clinical stage from 05/23/2024: Stage IA (rcT1c, cN0, cM0, G2, ER+, AK+, HER2-) - Unsigned Stage prefix: Recurrence Histologic grading system: 3 grade system PLAN: We reviewed her staging scans- low suspicion related to breast recurrence. Will f/u thyroid US and C-spine xray results. Genetics f/u 06/26. Plan for wide local excision of recurrence, no kalen mapping. Plan for adjuvant RT and endocrine therapy. Will necessitate incision directly overtop given extreme UIQ location and proximity to midline. The implant is not in the way in this location. Reviewed risk of capsular contracture with adjuvant radiation therapy - will have her proceed with therapy and can see plastic surgery should this develop - may need capsulorrhapy vs autologous reconstruction depending on reaction. Expectations of surgery and recovery, risks, indications and benefits reviewed, including but not limited to that of anesthesia, infection, bleeding, nipple sensory changes, possible nipple loss contour changes, post-operative hematoma and seroma formation, and indications for re-operation to control for complications or to address surgical margins. All questions answered. Plan: right breast lumpectomy (wide excision of local recurrence) Followup: post op Adam Corona, DO Breast Surgery All questions were answered and the patient had no further concerns at this time was given our contact information if she has any further questions or concerns. I spent a total of 30 minutes on the date of the service which included preparing to see the patient, [id number] patient care, completing clinical documentation, obtaining and/or reviewing separately obtained history, performing a medically appropriate examination, counseling and educating the patient/family/caregiver, ordering medications, tests, or procedures, communicating with other HCPs (not separately reported), independently interpreting results (not separately reported), communicating results to the patient/family/caregiver, and care coordination (not separately reported). documented in this encounter [facility] 06-20-2024 Note HNO ID: [id number] Author: ANGELLA FLYNN RDMS Service: ? Author Type: Navigation Teacher Type: Progress Notes Filed: 06/22/2024 12:45 Note Text: Radiology Service Progress Note PATIENT NAME: Cara Singh DATE OF SERVICE: June 22, 2024 TIME: 12:45 PM PATIENT IDENTITY VERIFICATION COMPLETED USING TWO (2) IDENTIFIERS: Name and Date of confirmed by patient verbally. FALL SCREENING: Has the patient had 2 falls in the last year or 1 fall with injury or currently using an Ambulatory Assistive Device (Walker, Cane, Wheelchair, Crutches, etc.)? No PATIENT GENDER DATA: Assigned female at . status: : No status: NO. PATIENT RELEVANT IMPLANT DATA REVIEWED: Not Applicable PATIENT PRESENTS WITH AN IMPLANTABLE OR ATTACHED MOLD DESIGNER: No RADIOLOGY DEPARTMENT: Ultrasound PERIPHERAL IV DATA: Not applicable SIGNED BY: Angella Flynn RDMS RVT June 22, 2024 12:45 PM [facility] 06-20-2024 History of Present illness Narrative Radiation Oncology - New Patient/Consult Note PATIENT NAME: Cara Singh PATIENT REQUESTING PROVIDER: Dr. Adam Corona DIAGNOSIS: Local only recurrence of right breast cancer with history of stage I, pT1a pN0 (sn), grade 1 invasive ductal carcinoma of the right breast in 2013 treated with right mastectomy and sentinel node biopsy 06/20/13 and then bilateral breast implants. Also h/o stage I, pT1b pN0, grade 1 invasive lobular carcinoma of the left breast in 2019 treated with left mastectomy and axillary node dissection on 07/19/19. Cancer Staging Recurrent breast cancer, right (HCC) Staging form: Breast, AJCC 8th Edition - Clinical stage from 05/23/2024: Stage IA (rcT1c, cN0, cM0, G2, ER+, AK+, HER2-) - Unsigned HPI: 49 year old female who presents with above diagnosis, for an opinion regarding the role of radiation therapy in the management of the patient's disease. Final recommendations will be communicated back to the requesting physician by way of the shared medical record, or letter to requesting physician via US mail. 49 year old woman with history of stage I, pT1a pN0 (sn), grade 1 invasive ductal carcinoma of the right breast in 2013 treated with right mastectomy and sentinel node biopsy on 06/20/13 and then bilateral breast implants. She was started on Tamoxifen but she stopped in 2015 due to significant hot flashes and mood swings. She then had stage I, pT1b pN0, grade 1 invasive lobular carcinoma of the left breast in 2019 and was treated with left mastectomy and axillary node dissection. She had Tamoxifen but again stopped it in 2020. 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 She felt a lump in the right breast early this year. US right breast on 05/14/24 showed a 1.2 cm mass at 2:00 corresponding to the palpable mass. No abnormalities are identified in the right axilla. US guided core biopsy of the right breast 2:00 lesion 8 cmfn on 05/21/24 showed grade 2 invasive mammary carcinoma measuring at least 3 mm. It's ER positive (>90%, strong), AK positive (50%, moderate) and Her2 negative. MRI breasts on 06/04/24 showed known malignancy within the upper inner reconstructed right breast measuring 1.1 cm. Oval enhancing mass along the upper outer aspect of the right breast implant, posterior depth, measuring 1.3 x 0.6 cm. While differential diagnosis includes an intramammary lymph node. Second look US on 06/07/24 showed that the lymph node measuring 1.3 cm in the right breast at 10 o'clock, 8 cm from the nipple is benign. CT C/A/P on 06/19/24 showed a nonspecific 1 cm soft tissue density in the medial upper right chest wall. No evidence for metastatic disease or lymphadenopathy. Bone scan showed Mild uptake is identified in the paraspinal mid right cervical aspect of the spine that could be related to uptake within the facet joints that could be related to cervical spondylosis, however metastatic disease cannot be entirely excluded. ALLERGIES No Known Allergies Current Outpatient Medications on File Prior to Visit Medication Sig valACYclovir (VALTREX) 1 gram tablet TAKE TWO TABLETS BY MOUTH TWICE DAILY for TWO days NEEDED for cold SORE iv contrast (will be provided with radiology test) CT ABD/PEL -Inject, intravenously, once for 1 dose.No IV access, insert saline lock prior to the beginning of sedation, infusion, injection of imaging exam. Discontinue saline lock post exam. If Pt. has a central line or IVAD, may access for administration according to line specific nursing protocol. Once exam is complete flush line and de-access according to line specific nursing protocol in the CT contrast administration guidelines link. enteric contrast (will be provided with radiology test) For CT ABD/PEL W IVCON Routine order Administer, As Directed One Time Only, via Oral, Rectal, both Oral and Rectal, Enteric Tube, Stoma or Indwelling Catheter, Enteric Contrast as designated per enteric contrast guidelines iv contrast (will be provided with radiology test) CT Chest W -Inject, intravenously, once for 1 dose.No IV access, insert saline lock prior to the beginning of sedation, infusion, injection of imaging exam. Discontinue saline lock post exam. If Pt. has a central line or IVAD, may access for administration according to line specific nursing protocol. Once exam is complete flush line and de-access according to line specific nursing protocol in the CT contrast administration guidelines link. loratadine (CLARITIN) 10 mg tablet Take 10 mg by mouth once daily. losartan (COZAAR) 25 mg tablet Take 25 mg by mouth once daily. OREGANO OIL ORAL Take by mouth. Intermittently for sinus congestion albuterol HFA (PROAIR HFA) 90 mcg/actuation inhaler inhale 1 puff by mouth every 4 hours as needed for wheezing/shortnessof breath. as directed fluticasone (FLONASE) 50 mcg/actuation nasal spray Use 1 [place] in each nostril daily at bedtime. No current facility-administered medications on file prior to visit. 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 No status: Patient states there is no possibility she is at this time. Educated on risks of during treatment. PAST SURGICAL HISTORY Procedure Laterality Date BIOPSY BREAST 05/2013 right breast BREAST AUGMENTATION W/PROSTHETIC IMPLANT s/p R mastectomy; new implant 06/2014 COLPOSCOPY CERVIX UPPER/ADJACENT VAGINA 08/15/06 Colposcopy EXC/DSTRJ LINGUAL TONSIL ANY METHOD SPX INSERT INTRAUTERINE DEVICE 05/14/2010 mirena , REMOVED IUD REMOVAL 07/06/12 LITHOTRIPSY XTRCORP SHOCK WAVE 02/2010 Lithotripsy MASTECTOMY HX Left 07/2019 MASTECTOMY, SIMPLE, COMPLETE 06/20/2013 Dr. Garza right breast with sln bx and nipple sparing REVISION OF RECONSTRUCTED BREAST 06/18/14 FAMILY HISTORY Problem Relation Age of Onset Lipids Father Prostate Cancer Father 67 Hypertension Father Hypertension Mother Lipids Mother Psychiatry Mother Skin Cancer Mother Breast Cancer Mother Asthma Brother Allergies Brother Heart Brother Cancer Maternal Grandfather Breast Cancer Maternal Grandmother dx 50's Diabetes Maternal Grandmother Cerebral Embolism Paternal Grandfather Stroke Paternal Grandfather Breast Cancer Maternal Aunt Mother's half sister. of breast cancer Brain Cancer Paternal Uncle Ovarian cancer No Family History Colon Cancer No Family History other (mitral valve) No Family History Uterine Cancer No Family History Pancreatic Cancer No Family History Social History Tobacco Use Smoking status: Never Smokeless tobacco: Never Vaping Use Vaping status: Never Used Substance Use Topics Alcohol use: Yes Alcohol/week: 7.0 standard drinks of alcohol Types: 7 Glasses of Wine (5oz) per week Comment: glass of wine Drug use: Never COMPLETE REVIEW OF SYSTEMS: GENERAL: feeling well without fatigue, no recent change in weight HEENT: denies RUEDA, change in hearing or vision, no other ENT complaints NECK: denies swelling or pain in neck RESPIRATORY: no cough, no wheezing or shortness of breath CARDIOVASCULAR: no chest pain, no palpitations GI: normal appetite, tolerating PO well, BMs normal, and no abdominal pain : urination is normal MUSCULOSKELETAL: denies any painful or swollen joints, no muscle aches SKIN: no rash HEMATOLOGY/LYMPHOLOGY: negative for prolonged bleeding, no swollen lymph nodes NEURO: no numbness or paresthesias and no weakness of the extremities PHYSICAL EXAM: VS: BP 170/92 Pulse 91 Temp 37.2 C (99 F) LMP 05/01/2024 (Exact Date) SpO2 98% KPS: 100 General Appearance: Alert and oriented. No acute distress. HEENT: NCAT. Sclera anicteric. EOMI. Neck: Normal ROM. Chest: No respiratory distress. Breasts: A small subcutaneous mass in the right upper inner chest wall. Abdomen: Soft. Nontender. Nondistended. Musculoskeletal: No edema. Normal ROM in extremities. Neuro: Speech fluent. Gait normal. No focal deficits. Skin: No rashes noted Lymphatics: No palpable cervical or supraclavicular or axillary adenopathy. Hematologic: No signs of active bleeding. RADIOLOGY/LABORATORY DATA: see HPI ASSESSMENT AND PLAN: 49 year old woman with local only recurrence of right breast cancer with history of stage I, pT1a pN0 (sn), grade 1 invasive ductal carcinoma of the right breast in 2013 treated with right mastectomy and sentinel node biopsy 06/20/13 and then bilateral breast implants. Also h/o stage I, pT1b pN0, grade 1 invasive lobular carcinoma of the left breast in 2019 treated with left mastectomy and axillary node dissection on 07/19/19. She is scheduled to have wide local excision in a few weeks. I went over the role of radiation treatment in patients with local recurrence of breast cancer. I went over the rationale, benefits and potential complications of radiation treatment in detail. I will see her again after surgery to go over final findings and pathology of surgery and recommendation of radiation treatment. I explained the rationale, benefits, alternative management options and potential complications of radiation treatment to the patient and she understands and agrees to proceed. It was explained and understood that other personnel such as radiation therapists, children's ministry director, and physicists will participate in planning and delivery of radiation treatment. Permanent tattoo cabrales will be placed to aid with positioning for daily treatment and the patient consented. Thank you very much for allowing us to participate in her care. Signed by: Jeanna Temple MD cc: Neena Knox [id number] [place] [id number] Adam Corona Jay Faust Radiation Therapy - Nursing Note (Consult) PATIENT NAME: Cara Singh PATIENT June 20, 2024 [facility] FACILITY/LOCATION: [place] Chief Complaint: breast cancer Reason for visit: Consult. Referring physician: Internal provider Dr Corona Subjective Data: no complaints Additional Data Do you want to see a Spool Tender? No Are you interested in information about fertility? No Status: Patient states there is no possibility she is at this time Stress Scale: On a scale of 0 to 10, what number best describes how much distress you have experienced in the past week?(0 being no distress and 10 being extreme distress) 7 Social work notified: Pt denied need to see social services aide at this time. SIGNED by: Ita Taylor RN documented in this encounter [facility] 06-20-2024 Note HNO ID: [id number] Author: JEANNA TEMPLE MD Service: ? Author Type: Physician Type: Progress Notes Filed: 06/21/2024 14:05 Note Text: Radiation Oncology - New Patient/Consult Note PATIENT NAME: Cara Singh PATIENT REQUESTING PROVIDER: Dr. Adam Corona DIAGNOSIS: Local only recurrence of right breast cancer with history of stage I, pT1a pN0 (sn), grade 1 invasive ductal carcinoma of the right breast in 2013 treated with right mastectomy and sentinel node biopsy 06/20/13 and then bilateral breast implants. Also h/o stage I, pT1b pN0, grade 1 invasive lobular carcinoma of the left breast in 2019 treated with left mastectomy and axillary node dissection on 07/19/19. Cancer Staging Recurrent breast cancer, right (HCC) Staging form: Breast, AJCC 8th Edition - Clinical stage from 05/23/2024: Stage IA (rcT1c, cN0, cM0, G2, ER+, AK+, HER2-) - Unsigned HPI: 49 year old female who presents with above diagnosis, for an opinion regarding the role of radiation therapy in the management of the patient's disease. Final recommendations will be communicated back to the requesting physician by way of the shared medical record, or letter to requesting physician via US mail. 49 year old woman with history of stage I, pT1a pN0 (sn), grade 1 invasive ductal carcinoma of the right breast in 2013 treated with right mastectomy and sentinel node biopsy on 06/20/13 and then bilateral breast implants. She was started on Tamoxifen but she stopped in 2015 due to significant hot flashes and mood swings. She then had stage I, pT1b pN0, grade 1 invasive lobular carcinoma of the left breast in 2019 and was treated with left mastectomy and axillary node dissection. She had Tamoxifen but again stopped it in 2020. 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 She felt a lump in the right breast early this year. US right breast on 05/14/24 showed a 1.2 cm mass at 2:00 corresponding to the palpable mass. No abnormalities are identified in the right axilla. US guided core biopsy of the right breast 2:00 lesion 8 cmfn on 05/21/24 showed grade 2 invasive mammary carcinoma measuring at least 3 mm. It's ER positive (>90%, strong), AK positive (50%, moderate) and Her2 negative. MRI breasts on 06/04/24 showed known malignancy within the upper inner reconstructed right breast measuring 1.1 cm. Oval enhancing mass along the upper outer aspect of the right breast implant, posterior depth, measuring 1.3 x 0.6 cm. While differential diagnosis includes an intramammary lymph node. Second look US on 06/07/24 showed that the lymph node measuring 1.3 cm in the right breast at 10 o'clock, 8 cm from the nipple is benign. CT C/A/P on 06/19/24 showed a nonspecific 1 cm soft tissue density in the medial upper right chest wall. No evidence for metastatic disease or lymphadenopathy. Bone scan showed Mild uptake is identified in the paraspinal mid right cervical aspect of the spine that could be related to uptake within the facet joints that could be related to cervical spondylosis, however metastatic disease cannot be entirely excluded. ALLERGIES No Known Allergies Current Outpatient Medications on File Prior to Visit Medication Sig valACYclovir (VALTREX) 1 gram tablet TAKE TWO TABLETS BY MOUTH TWICE DAILY for TWO days NEEDED for cold SORE iv contrast (will be provided with radiology test) CT ABD/PEL -Inject, intravenously, once for 1 dose.No IV access, insert saline lock prior to the beginning of sedation, infusion, injection of imaging exam. Discontinue saline lock post exam. If Pt. has a central line or IVAD, may access for administration according to line specific nursing protocol. Once exam is complete flush line and de-access according to line specific nursing protocol in the CT contrast administration guidelines link. enteric contrast (will be provided with radiology test) For CT ABD/PEL W IVCON Routine order Administer, As Directed One Time Only, via Oral, Rectal, both Oral and Rectal, Enteric Tube, Stoma or Indwelling Catheter, Enteric Contrast as designated per enteric contrast guidelines iv contrast (will be provided with radiology test) CT Chest W -Inject, intravenously, once for 1 dose.No IV access, insert saline lock prior to the beginning of sedation, infusion, injection of imaging exam. Discontinue saline lock post exam. If Pt. has a central line or IVAD, may access for administration according to line specific nursing protocol. Once exam is complete flush line and de-access according to line specific nursing protocol in the CT contrast administration guidelines link. loratadine (CLARITIN) 10 mg tablet Take 10 mg by mouth once daily. losartan (COZAAR) 25 mg tablet Take 25 mg by mouth once daily. OREGANO OIL ORAL Take by mouth. Intermittently for sinus congestion albuterol HFA (PROAIR HFA) 90 mcg/actuation inhaler inhale 1 puff by mouth every 4 hours as needed for wheezing/shortnessof breath (more content not included)... [facility] 06-20-2024 Note HNO ID: [id number] Author: ITA TAYLOR, KUSUM Service: ? Author Type: Registered Nurse Type: Progress Notes Filed: 06/21/2024 14:05 Note Text: Radiation Therapy - Nursing Note (Consult) PATIENT NAME: Cara Singh PATIENT June 20, 2024 [facility] FACILITY/LOCATION: [place] Chief Complaint: breast cancer Reason for visit: Consult. Referring physician: Internal provider Dr Corona Subjective Data: no complaints Additional Data Do you want to see a Spool Tender? No Are you interested in information about fertility? No Status: Patient states there is no possibility she is at this time Stress Scale: On a scale of 0 to 10, what number best describes how much distress you have experienced in the past week?(0 being no distress and 10 being extreme distress) 7 Social work notified: Pt denied need to see social services aide at this time. SIGNED by: Ita Taylor RN [facility] 06-19-2024 History of Present illness Narrative Radiology Service Progress Note PATIENT NAME: Cara Singh DATE OF SERVICE: June 19, 2024 TIME: 12:17 PM PATIENT IDENTITY VERIFICATION COMPLETED USING TWO (2) IDENTIFIERS: Name and Date of confirmed by patient verbally and Name and Date of confirmed by identification band. FALL SCREENING: Has the patient had 2 falls in the last year or 1 fall with injury or currently using an Ambulatory Assistive Device (Walker, Cane, Wheelchair, Crutches, etc.)? No PATIENT GENDER DATA: Assigned female at . status: Unknown status: NO. PATIENT RELEVANT IMPLANT DATA REVIEWED: Not Applicable PATIENT PRESENTS WITH AN IMPLANTABLE OR ATTACHED MOLD DESIGNER: No RADIOLOGY DEPARTMENT: CT; Exam(s) Completed: Chest Abdomen Pelvis PERIPHERAL IV DATA: Site assessment: Clean,Dry and Intact, Site disposition Discontinued SIGNED BY: Amauri Gates June 19, 2024 12:17 PM documented in this encounter [facility] 06-19-2024 Note HNO ID: [id number] Author: FANNIE VALADEZ Tech Service: Radiology Author Type: Preparatory Technician Type: Progress Notes Filed: 06/19/2024 12:17 Note Text: Radiology Service Progress Note PATIENT NAME: Cara Singh DATE OF SERVICE: June 19, 2024 TIME: 12:17 PM PATIENT IDENTITY VERIFICATION COMPLETED USING TWO (2) IDENTIFIERS: Name and Date of confirmed by patient verbally and Name and Date of confirmed by identification band. FALL SCREENING: Has the patient had 2 falls in the last year or 1 fall with injury or currently using an Ambulatory Assistive Device (Walker, Cane, Wheelchair, Crutches, etc.)? No PATIENT GENDER DATA: Assigned female at . status: Unknown status: NO. PATIENT RELEVANT IMPLANT DATA REVIEWED: Not Applicable PATIENT PRESENTS WITH AN IMPLANTABLE OR ATTACHED MOLD DESIGNER: No RADIOLOGY DEPARTMENT: CT; Exam(s) Completed: Chest Abdomen Pelvis PERIPHERAL IV DATA: Site assessment: Clean,Dry and Intact, Site disposition Discontinued SIGNED BY: Amauri Gates June 19, 2024 12:17 PM [facility] [place] 06-19-2024 History of Present illness Narrative RADIOLOGY SERVICE PROGRESS NOTE SERVICE DATE: 06/19/2024 SERVICE TIME: 11:25 AM PATIENT IDENTITY VERIFICATION COMPLETED USING TWO (2) STANDARD IDENTIFIERS: Name and Date of confirmed by patient verbally and Name and Date of confirmed by identification band FALL SCREENING: Has the patient had 2 falls in the last year or 1 fall with injury or currently using an Ambulatory Assistive Device (Walker, Cane, Wheelchair, Crutches, etc.)? No PATIENT GENDER DATA: .female : No ALLERGIES: Reviewed and unchanged MEDICATIONS REVIEWED: Yes PATIENT RELEVANT IMPLANT DATA REVIEWED: Not Applicable PATIENT PRESENTS WITH AN IMPLANTABLE OR ATTACHED MOLD DESIGNER: No CREATININE: Creatinine Date Value Ref Range Status 07/09/2019 0.67 0.58 - 0.96 mg/dL Final 08/05/2015 0.62 (L) 0.70 - 1.40 mg/dL Final 08/09/2014 0.67 (L) 0.70 - 1.40 mg/dL Final eGFR-All Other Races Date Value Ref Range Status 07/09/2019 >60 . Final Comment: eGFR (Estimated GFR) Units of measure: mL/min/1.73 meters squared eGFR is derived from the reexpressed MDRD Study equation using the following parameters: serum creatinine, age, gender and race. The creatinine assay has been calibrated to be traceable to IDMS. An eGFR <60 mL/min/1.73m2 for >3 months is consistent with chronic kidney disease. Refer to KDOQI guidelines for clinical interpretation. In patients with unstable renal function, e.g. those with acute kidney injury, the eGFR may not accurately reflect actual GFR. eGFR- Date Value Ref Range Status 07/09/2019 >60 Final P.O.C.T. RESULTS: N/A June 19, [address] PERFORMED: No IV SITE: Ambulatory: A peripheral IV was started in the Right antecubital site with a Angio cath: 20 gauge. POST EXAM PIV STATUS: Discontinued PROCEDURE TYPE: NM INJECT: Whole Body Bone Scan. 22.9 mCi Tc99m MDP. No other medications given.. ADMINISTRATION TIME: 11:34 PATIENT DISCHARGED TO: Ambulatory patient, left NM department area. Is this a therapy: No A Diagnostic radioactive procedure has taken place, with no further precautions necessary other than routine body substance precautions. More information regarding radiation safety can be found using this link: [email or web address] %[email or web address] SIGNATURE: CARO Juarez) PATIENT NAME: Cara Singh DATE: June 19, 2024 TIME: 11:25 AM PAGER/CONTACT #: documented in this encounter [facility] 06-19-2024 Note HNO ID: [id number] Author: KATHY AYOUB RT (R) Service: Nuclear Medicine Author Type: Technologist Type: Progress Notes Filed: 06/19/2024 11:39 Note Text: RADIOLOGY SERVICE PROGRESS NOTE SERVICE DATE: 06/19/2024 SERVICE TIME: 11:25 AM PATIENT IDENTITY VERIFICATION COMPLETED USING TWO (2) STANDARD IDENTIFIERS: Name and Date of confirmed by patient verbally and Name and Date of confirmed by identification band FALL SCREENING: Has the patient had 2 falls in the last year or 1 fall with injury or currently using an Ambulatory Assistive Device (Walker, Cane, Wheelchair, Crutches, etc.)? No PATIENT GENDER DATA: .female : No ALLERGIES: Reviewed and unchanged MEDICATIONS REVIEWED: Yes PATIENT RELEVANT IMPLANT DATA REVIEWED: Not Applicable PATIENT PRESENTS WITH AN IMPLANTABLE OR ATTACHED MOLD DESIGNER: No CREATININE: Creatinine Date Value Ref Range Status 07/09/2019 0.67 0.58 - 0.96 mg/dL Final 08/05/2015 0.62 (L) 0.70 - 1.40 mg/dL Final 08/09/2014 0.67 (L) 0.70 - 1.40 mg/dL Final eGFR-All Other Races Date Value Ref Range Status 07/09/2019 >60 . Final Comment: eGFR (Estimated GFR) Units of measure: mL/min/1.73 meters squared eGFR is derived from the reexpressed MDRD Study equation using the following parameters: serum creatinine, age, gender and race. The creatinine assay has been calibrated to be traceable to IDMS. An eGFR <60 mL/min/1.73m2 for >3 months is consistent with chronic kidney disease. Refer to KDOQI guidelines for clinical interpretation. In patients with unstable renal function, e.g. those with acute kidney injury, the eGFR may not accurately reflect actual GFR. eGFR- Date Value Ref Range Status 07/09/2019 >60 Final P.O.C.T. RESULTS: N/A June 19, [address] PERFORMED: No IV SITE: Ambulatory: A peripheral IV was started in the Right antecubital site with a Angio cath: 20 gauge. POST EXAM PIV STATUS: Discontinued PROCEDURE TYPE: NM INJECT: Whole Body Bone Scan. 22.9 mCi Tc99m MDP. No other medications given.. ADMINISTRATION TIME: 11:34 PATIENT DISCHARGED TO: Ambulatory patient, left [place] department area. Is this a therapy: No A Diagnostic radioactive procedure has taken place, with no further precautions necessary other than routine body substance precautions. More information regarding radiation safety can be found using this link: [email or web address] 20Diagnostic%20Nuclear%20Medicine% [email or web address] SIGNATURE: RT Larry(R) PATIENT NAME: Cara Singh DATE: June 19, 2024 TIME: 11:25 AM PAGER/CONTACT #: [facility] [place] 06-19-2024 Telephone encounter Note Rescheduled with patient [facility] Work Phone: 06-19-2024 Miscellaneous Notes Rescheduled with patient documented in this encounter [facility] 06-18-2024 Telephone encounter Note Scheduled with patient [facility] Work Phone: 06-18-2024 Miscellaneous Notes Scheduled with patient LVM for pt to call back and schedule consult w Dr Temple. Debby Henao documented in this encounter [facility] 06-18-2024 Telephone encounter Note LVM for pt to call back and schedule consult w Dr Temple. 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 She has questions about hysterectomy and oophorectomy - she will discuss with Medical Oncology (regarding endocrine therapy impact) and genetics. Discussed recommendation for adjuvant radiation. Will refer to Dr. Temple. Reviewed surgical recommendation for wide excision without kalen assessment once metastatic survey is completed (scheduled next week). 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 She has questions about hysterectomy and oophorectomy - she will discuss with Medical Oncology (regarding endocrine therapy impact) and genetics. Discussed recommendation for adjuvant radiation. Will refer to Dr. Temple. Reviewed surgical recommendation for wide excision without kalen assessment once metastatic survey is completed (scheduled next week). Adam Corona DO Breast Surgery documented in this encounter [facility] 06-15-2024 Telephone encounter Note Per Dr Corona, discussed Tumor Board recommendations with patient. Patient asks if the possibility of having a hysterectomy was discussed? I explained that I did not see that written in the note, but she could ask Dr Corona about it next week after her scans are complete. Patient verbalized an understanding of this information. [facility] [facility] Work Phone: 06-15-[address] Corona, discussed Tumor Board recommendations with patient. Patient asks if the possibility of having a hysterectomy was discussed? I explained that I did not see that written in the note, but she could ask Dr Corona about it next week after her scans are complete. Patient verbalized an understanding of this information. documented in this encounter [facility] 06-14-2024 Note HNO ID: [id number] Author: ADAM CORONA DO Service: ? Author Type: Physician Type: Progress Notes Filed: 06/14/2024 08:03 Note Text: The below documentation is based on a tumor board discussion amongst the multidisciplinary team and should NOT be used for insurance verification or coverage purposes or interpreted as the final plan of care: Date of Presentation: June 14, 2024 Presenter: Adam Corona DO Team Members: Dr. 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 1) Surgery: pending staging studies to rule out distant metastasis, plan for wide excision right upper inner quadrant recurrence, omit axillary surgery 2) Medical Oncology: endocrine therapy - determine menopausal status - consider genomic testing, Ki67 3) Radiation Oncology: adjuvant radiation recommended 4) Referral to genetics placed for CHEK2 counseling This abstract and interpretation of the conversation at tumor board has been completed by Adam Corona DO. The final recommendations / treatment plan will be made by the patient's primary health care team and patient, after full discussion as appropriate. [facility] 06-12-2024 Telephone encounter Note Patient called and left a message requesting return call from this nurse. Her call was returned and she was inquiring about the possibility of holding surgery for 07/06 due to her spring break being the following week. She is concerned about taking additional time off and her job. This nurse will speak with Dr Corona and follow back up with patient. She was appreciative of return call and denied any further questions or concerns at this time. Brooke Raza RN [facility] 06-12-2024 Miscellaneous Notes Patient called and left a message requesting return call from this nurse. Her call was returned and she was inquiring about the possibility of holding surgery for 07/06 due to her spring break being the following week. She is concerned about taking additional time off and her job. This nurse will speak with Dr Corona and follow back up with patient. She was appreciative of return call and denied any further questions or concerns at this time. Brooke Raza RN documented in this encounter [facility] 06-07-2024 History of Present illness Narrative Images from the original note were not included. BREAST SURGICAL ONCOLOGY REFERRING PROVIDER: Neena Knox MD [address] [place] [id number] Consult requested for an opinion regarding the evaluation and treatment of breast cancer. My final impression and recommendations will be communicated back to the requesting physician by way of the shared medical record or letter via US mail. SUBJECTIVE: REASON FOR TODAY'S VISIT: Patient presents with: Breast Cancer HISTORY of PRESENT ILLNESS: Cara Singh is a 49 year old female who presents for an evaluation of a recurrence of right breast cancer. She found a lump in the right breast in April of this year. She was sent for breast imaging. Diagnosis was made at [facility] by means of ultrasound-guided core biopsy of Right breast. 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 Cara Singh presents with her Fly for evaluation and treatment recommendations. She did well with biopsy. She denies palpable mass, nipple discharge, or overlying skin changes. She had second look ultrasound today after MRI. She took endocrine therapy for 1-2 years after her right breast cancer in 2013, but not after her left breast cancer in 2019. Per Radha Christianson PA-C note: In 2013, she had Stage l (pT1a N0) right invasive ductal carcinoma. 03/2013 screening mammogram was abnormal for which subsequent right diagnostic imaging revealed a cluster of calcifications in the UOQ near the nipple. 04/2013 right mammotome biopsy revealed Grade 2 IDC, ER+(>95%)/AK+(80%)/HER2-. 04/2013 breast MRI revealed bilateral enlarged axillary LNs. 06/2013 right nipple-sparing mastectomy/SLNB and TE placement by Drs. Garza/Brodie revealed Grade 2 IDC, 1.1 mm. Margins were negative (closest 9 mm). 0/3 SLN were involved. No LVI. She took tamoxifen for 2 years but stopped in 05/2015 due to significant hot flashes and mood swings. 11/2013 she had a right TE exchange for permanent smooth round silicone retropectoral implant and left breast augmentation with smooth round silicone retropectoral implant, and 06/2014 she had right reconstructed breast revision and an implant exchange bilaterally by Dr. Chirinos. In 2019, she had Stage 1 (pT1b N0 M0) left invasive mammary carcinoma in the upper outer quadrant of breast. At OSH she had an abnormal screening mammogram in 04/2019 for which left US revealed a 9 mm lobulated mass at 2:00, 5 cmfn. 06/2019 left ultrasound guided core biopsy at OSH showed Grade 1 Invasive mammary carcinoma with ductal and lobular features, ER+(90%)/AK+(80%)/HER2-. 07/2019 left nipple sparing mastectomy/SLNB and TE placement with removal of implant by Drs. Garza/Brodie showed an 8 mm Grade 1 Invasive mammary carcinoma with lobular morphology. 0/3 SLNB were involved. Margins were negative (closest 4 mm). No LVI. 10/2019 she had a TE exchange for a permanent smooth round silicone retropectoral implant by Dr. Chirinos. Oncotype RS was 14 corresponding to a 4% risk of distant recurrence at 10 years; thus chemotherapy was not recommended. She started Tamoxifen in 07/2019 and then stopped it in early 2020 due to side effects again. She is not interested in going back on any type of medication. She has not seen Med/Onc Dr. Faust since 2019. She reports that she was advised there isn't a significant benefit of taking Tamoxifen following mastectomies. 05/2013 Cara Ramirez's clinical Integrated BRACAnalysis was negative for a deleterious mutation. 04/2021 she returned for panel testing at OSH. She shared the results with me which were uploaded into the chart. 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 Smoker: No As part of today's visit, I have reviewed and updated as necessary: Current medication list, Past Medical History, Past Surgical History, Allergies, Family History, Social History, and OBGYN History HISTORY OF BREAST PROCEDURE(S): Breast biopsy: Yes, as above Breast cysts: No Breast surgery: Yes, as above Breast cancer: Yes, as above. OBSTETRIC RELATED HISTORY: Patient did breast feed Age at of First Child: 31 years of age. Age at Onset of Menses: Patient does not remember. Age at Menopause: The patient is not menopausal at this time. P: 2 Patient's last menstrual period was 05/01/2024 (exact date). Exogenous Hormone Use: Tamoxifen x 1-2 years last taken ~8471-1384 IUD - in the past (more than 20 years ago) FAMILY HISTORY: The patient is not of Ashkenazic Ancestry Breast cancer: Maternal Grandmother, mother and maternal aunt (moms half sister) Prostate cancer: father (non metastatic) REVIEW OF SYSTEMS: GENERAL: No weight loss, malaise or fevers HEENT: Negative for frequent or significant headaches, No changes in hearing or vision, no nose bleeds or other nasal problems RESPIRATORY: Negative for cough, hemoptysis, wheezing, COPD, dyspnea or shortness of breath CARDIOVASCULAR: Negative for chest pain, leg swelling, hypertension, CHF or palpitations GASTROINTESTINAL: No nausea, vomiting, or diarrhea GENITOURINARY: No history of dysuria, frequency or incontinence GYNECOLOGICAL: Positive for abnormal vaginal bleeding starting in September of last year saw CV RN, no concerns at this time MUSCULOSKELETAL: joint pain or swelling (neck) INTEGUMENTARY:Denies Scleroderma or Lupus. Denies chronic skin conditions. PSYCHOLOGICAL: History of anxiety disorder: ~30 years ago. Patient feels she is coping well with recent Breast Cancer diagnosis. Negative for sleep disturbance, mood disorder and recent psychosocial stressors. All other reviewed and negative other than HPI. I reviewed the PMH, PSH, FHx, SHx, OBHx, and agree with the above. I reviewed the HPI and ROS in detail with the Patient and edited as above. OBJECTIVE: PHYSICAL EXAM: Ht 165.7 cm (5' 5.24) Wt 66.6 kg (146 lb 13.2 oz) LMP 05/01/2024 (Exact Date) BMI 24.26 kg/m ECOG PERFORMANCE STATUS: 0- Fully active, able to carry on all pre-disease performance w/o restriction. Physical Exam: Constitutional: well nourished, no distress, appears stated age HEENT: PERRL, conjunctiva/corneas clear, EOM's grossly intact Respiratory: respirations unlabored Cardiovascular: Regular rate GI: Soft Musculoskeletal: Extremities normal, normal gait. Normal range of motion of bilateral upper extremities Skin: Skin color normal, warm, dry, no rashes Neurologic: alert and oriented, follows simple/complex commands Psych: mood and affect normal and appropriate Lymphatics: no evidence of palpable cervical, supraclavicular or axillary adenopathy Breast: Breasts were examined in both the seated and supine positions. Nipples are everted bilaterally without evidence of discharge or nipple retraction. Symmetric in size/shape, implants soft/mobile, well healed UOQ radial incisions, there is a palpable 1cm nodule at extreme upper inner quadrant of the right breast correlating to known tumor, no skin involvement, not fixed, otherwise no dominant masses or areas of significant focal nodularity Bedside U/S: biopsy proven malignancy in right UIQ adjacent to sternum; right axilla with two normal appearing lymph nodes IMAGING TO DATE: I have independently and personally reviewed the patient's breast imaging, specifically mammogram and ultrasound images noted below. I agree with findings of right breast mass, UIQ. 05/14/2024 US right breast Targeted ultrasound of the right breast was performed for evaluation of the patient's palpable lump at 2:00 8 cm from the nipple. Corresponding with the palpable, there is an indistinct hypoechoic mass which measures 1.2 x 0.6 x 1.3 cm. No abnormalities are identified in the right axilla. 06/01/2024 breast MRI IMPRESSION: Known malignancy within the upper inner reconstructed right breast measuring 1.1 cm with associated artifact from Alida Coater Operator Insulation Board reflector. Surgical consultation is recommended. Oval enhancing mass along the upper outer aspect of the right breast implant, posterior depth, measuring 1.3 x 0.6 cm. While differential diagnosis includes an intramammary lymph node, second look ultrasound is recommended for further evaluation. If there is no sonographic correlate, surgical consultation would be recommended as this finding is not amenable to MRI-guided biopsy. A breast imaging nurse navigator will contact the patient to assist in scheduling second look ultrasound. 06/07/2024 US right breast Lymph node measuring 1.3 cm in the right breast at 10 o'clock, 8 cm from the nipple is benign. This correlates with the oval mass in the upper outer quadrant described on recent MRI dated 06/01/2024. Continued surgical consultation is recommended for the known malignancy in the right breast. The patient is under the care of Dr. Corona. PATHOLOGY RESULTS: FINAL DIAGNOSIS A: Breast, right, 2:00, 8 cmfn, 1.3 cm mass, ultrasound-guided biopsy with zipper setter chainstitch reflector placement: - Invasive mammary carcinoma, provisional Liberty grade 2, measuring at least 3 mm in greatest dimension. Component ER status Positive (greater than 10%) ER % staining >90 Estrogen Receptor (Staining Intensity) Strong Estrogen Receptor Internal Control Present and Stained as Expected Estrogen Receptor External Control Present and Stained as Expected AK status Positive (greater than or equal to 1%) AK % staining 50 Progesterone Receptor (Staining Intensity) Moderate Progesterone Receptor Internal Control Present and Stained as Expected Progesterone Receptor External Control Present and Stained as Expected HER2 IHC Status Negative for HER2 Overexpression HER2 IHC Score 1+ Tumor Type Primary Invasive Breast Carcinoma Breast Tumor Grade Grade 2 GENETIC TESTING: ASSESSMENT: (C50.911) Recurrent breast cancer, right (HCC) (primary encounter diagnosis) Plan: CT ABD/PEL W IVCON, iv contrast (will be provided with radiology test), enteric contrast (will be provided with radiology test), CT CHEST W IVCON, iv contrast (will be provided with radiology test), NM BONE WHOLE BODY, BREAST TUMOR BOARD - [facility] (Z85.3) Personal history of breast cancer Plan: CT ABD/PEL W IVCON, iv contrast (will be provided with radiology test), enteric contrast (will be provided with radiology test), CT CHEST W IVCON, iv contrast (will be provided with radiology test), NM BONE WHOLE BODY, BREAST TUMOR BOARD - [facility] Cancer Staging No matching staging information was found for the patient. PLAN: I have examined Ms. Singh and reviewed the physical findings, imaging and pathology reports with her. A discussion was held with the patient regarding the local-regional, as well as systemic treatment of her Breast Cancer. We discussed role of breast conservation surgery or mastectomy, indications and risks of sentinel lymph node biopsy, possibility of axillary lymph node dissection, breast reconstruction, and role of systemic and radiation therapy. Staging scans recommended for recurrence - CT Chest/abdomen/pelvis and bone scan ordered today. MRI breast completed, 2nd look US showed intramammary lymph node (though this appears to be the axilla). Discussed excision of local recurrence - would necessitate incision directly overtop given extreme UIQ location and proximity to midline. The implant is not in the way in this location. Discussed pros/cons of remapping sentinel lymph node and excision. Discussed possible need for radiation - she would prefer locally ([place]). Will discuss case at multidisciplinary tumor board next week. Ms. Singh needs further work-up at this time; diagnostic work up incomplete. IMAGING ORDERED TODAY: CT Scan for recurrence . Bone Scan for recurrence . REFERRAL(S) for breast cancer treatment planning considerations: None Adam Corona, DO Breast Surgery All questions were answered and the patient had no further concerns at this time was given our contact information if she has any further questions or concerns. My final recommendation will be communicated back to the referring physician by way of shared medical record and/or written letter via [place] mail. I spent a total of 60 minutes on the date of the service which included preparing to see the patient, [id number] patient care, completing clinical documentation, obtaining and/or reviewing separately obtained history, performing a medically appropriate examination, counseling and educating the patient/family/caregiver, ordering medications, tests, or procedures, communicating with other HCPs (not separately reported), independently interpreting results (not separately reported), communicating results to the patient/family/caregiver, and care coordination (not separately reported). Participation of a fellow, resident, medical student, or advanced practice provider student in performing the sensitive examination was discussed with the patient or authorized personnel representative. The patient or authorized personnel representative has agreed to proceed with the sensitive examination. (Sensitive examination includes inspection and/or palpation of the breasts, pelvis, prostate and anorectal regions) documented in this encounter [facility] 06-07-2024 Note HNO ID: [id number] Author: ADAM CORONA DO Service: ? Author Type: Physician Type: Progress Notes Filed: 06/07/2024 11:09 Note Text: BREAST SURGICAL ONCOLOGY REFERRING PROVIDER: Neena Knox MD [address] [facility] [id number] Consult requested for an opinion regarding the evaluation and treatment of breast cancer. My final impression and recommendations will be communicated back to the requesting physician by way of the shared medical record or letter via US mail. SUBJECTIVE: REASON FOR TODAY'S VISIT: Patient presents with: Breast Cancer HISTORY of PRESENT ILLNESS: Cara Singh is a 49 year old female who presents for an evaluation of a recurrence of right breast cancer. She found a lump in the right breast in April of this year. She was sent for breast imaging. Diagnosis was made at [facility] by means of ultrasound-guided core biopsy of Right breast. 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 Cara Singh presents with her Fly for evaluation and treatment recommendations. She did well with biopsy. She denies palpable mass, nipple discharge, or overlying skin changes. She had second look ultrasound today after MRI. She took endocrine therapy for 1-2 years after her right breast cancer in 2013, but not after her left breast cancer in 2019. Per Radha Christianson PA-C note: In 2013, she had Stage l (pT1a N0) right invasive ductal carcinoma. 03/2013 screening mammogram was abnormal for which subsequent right diagnostic imaging revealed a cluster of calcifications in the UOQ near the nipple. 04/2013 right mammotome biopsy revealed Grade 2 IDC, ER+(>95%)/AK+(80%)/HER2-. 04/2013 breast MRI revealed bilateral enlarged axillary LNs. 06/2013 right nipple-sparing mastectomy/SLNB and TE placement by Drs. Garza/Brodie revealed Grade 2 IDC, 1.1 mm. Margins were negative (closest 9 mm). 0/3 SLN were involved. No LVI. She took tamoxifen for 2 years but stopped in 05/2015 due to significant hot flashes and mood swings. 11/2013 she had a right TE exchange for permanent smooth round silicone retropectoral implant and left breast augmentation with smooth round silicone retropectoral implant, and 06/2014 she had right reconstructed breast revision and an implant exchange bilaterally by Dr. Chirinos. In 2019, she had Stage 1 (pT1b N0 M0) left invasive mammary carcinoma in the upper outer quadrant of breast. At OSH she had an abnormal screening mammogram in 04/2019 for which left US revealed a 9 mm lobulated mass at 2:00, 5 cmfn. 06/2019 left ultrasound guided core biopsy at OSH showed Grade 1 Invasive mammary carcinoma with ductal and lobular features, ER+(90%)/AK+(80%)/HER2-. 07/2019 left nipple sparing mastectomy/SLNB and TE placement with removal of implant by Drs. Garza/Brodie showed an 8 mm Grade 1 Invasive mammary carcinoma with lobular morphology. 0/3 SLNB were involved. Margins were negative (closest 4 mm). No LVI. 10/2019 she had a TE exchange for a permanent smooth round silicone retropectoral implant by Dr. Chirinos. Oncotype RS was 14 corresponding to a 4% risk of distant recurrence at 10 years; thus chemotherapy was not recommended. She started Tamoxifen in 07/2019 and then stopped it in early 2020 due to side effects again. She is not interested in going back on any type of medication. She has not seen Med/Onc Dr. Faust since 2019. She reports that she was advised there isn't a significant benefit of taking Tamoxifen following mastectomies. 05/2013 Cara Ramirez's clinical Integrated BRACAnalysis was negative for a deleterious mutation. 04/2021 she returned for panel testing at OSH. She shared the results with me which were uploaded into the chart. 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 Smoker: No As part of today's visit, I have reviewed and updated as necessary: Current medication list, Past Medical History, Past Surgical History, Allergies, Family History, Social History, and OBGYN History HISTORY OF BREAST PROCEDURE(S): Breast biopsy: Yes, as above Breast cysts: No Breast surgery: Yes, as above Breast cancer: Yes, as above. OBSTETRIC RELATED HISTORY: Patient did breast feed Age at of First Child: 31 years of age. Age at Onset of Menses: Patient does not remember. Age at Menopause: The patient is not menopausal at this time. P: 2 Patient's last menstrual period was 05/01/2024 (exact date). Exogenous Hormone Use: Tamoxifen x 1-2 years last taken ~6470-0272 IUD - in the past (more than 20 years ago) FAMILY HISTORY: The patient is not of Ashkenazic Ancestry Breast cancer: Maternal Grandmother, mother and maternal aunt (moms half sister) Prostate cancer: father (non metastatic) REVIEW OF SYSTEMS: GENERAL: No weight loss, malaise or fevers HEENT: Negative for frequ (more content not included)... [facility] [place] 06-07-2024 History of Present illness Narrative Radiology Service Progress Note PATIENT NAME: Cara Singh DATE OF SERVICE: June 07, 2024 TIME: 9:20 AM PATIENT IDENTITY VERIFICATION COMPLETED USING TWO (2) IDENTIFIERS: Name and Date of confirmed by patient verbally. FALL SCREENING: Has the patient had 2 falls in the last year or 1 fall with injury or currently using an Ambulatory Assistive Device (Walker, Cane, Wheelchair, Crutches, etc.)? No PATIENT GENDER DATA: Assigned female at . status: : No status: N/A PATIENT RELEVANT IMPLANT DATA REVIEWED: Not Applicable PATIENT PRESENTS WITH AN IMPLANTABLE OR ATTACHED MOLD DESIGNER: No RADIOLOGY DEPARTMENT: Ultrasound PERIPHERAL IV DATA: Not applicable SIGNED BY: Ramona Lindsay RDMS June 07, 2024 9:20 AM documented in this encounter [facility] 06-07-2024 Note HNO ID: [id number] Author: RAMONA LINDSAY RDMS Service: Radiology Author Type: Technologist Type: Progress Notes Filed: 06/07/2024 09:20 Note Text: Radiology Service Progress Note PATIENT NAME: Cara Singh DATE OF SERVICE: June 07, 2024 TIME: 9:20 AM PATIENT IDENTITY VERIFICATION COMPLETED USING TWO (2) IDENTIFIERS: Name and Date of confirmed by patient verbally. FALL SCREENING: Has the patient had 2 falls in the last year or 1 fall with injury or currently using an Ambulatory Assistive Device (Walker, Cane, Wheelchair, Crutches, etc.)? No PATIENT GENDER DATA: Assigned female at . status: : No status: N/A PATIENT RELEVANT IMPLANT DATA REVIEWED: Not Applicable PATIENT PRESENTS WITH AN IMPLANTABLE OR ATTACHED MOLD DESIGNER: No RADIOLOGY DEPARTMENT: Ultrasound PERIPHERAL IV DATA: Not applicable SIGNED BY: Ramona Lindsay RDMS June 07, 2024 9:20 AM [facility] [place] 06-01-2024 History of Present illness Narrative Radiology Service Progress Note DATE OF SERVICE: June 01, 2024 TIME: 8:15 AM PATIENT IDENTITY VERIFICATION COMPLETED USING TWO (2) STANDARD IDENTIFIERS: Name and Date of confirmed by patient verbally. FALL SCREENING: Has the patient had 2 falls in the last year or 1 fall with injury or currently using an Ambulatory Assistive Device (Walker, Cane, Wheelchair, Crutches, etc.)? No PATIENT GENDER DATA: Assigned female at . status: : No status: NO. PATIENT RELEVANT IMPLANT DATA REVIEWED: Yes PATIENT PRESENTS WITH AN IMPLANTABLE OR ATTACHED MOLD DESIGNER: No ALLERGIES: Reviewed and unchanged CONTRAST ALLERGY: NO. EXAM: MRI - CONTRAST TYPE: GROUP II PERIPHERAL IV DATA: Ambulatory: A peripheral IV was started in the Right antecubital site with a Angio cath: 22 gauge. RADIOLOGY DEPARTMENT: MR; Exam(s) Completed: Chest: Breast SIGNATURE: VELIA Germain PATIENT NAME: Cara Singh DATE: June 01, 2024 TIME: 8:15 AM documented in this encounter [facility] 06-01-2024 Note HNO ID: [id number] Author: PEBBLES CHOUDHURY CT Service: Radiology Author Type: Preparatory Technician Type: Progress Notes Filed: 06/01/2024 08:16 Note Text: Radiology Service Progress Note DATE OF SERVICE: June 01, 2024 TIME: 8:15 AM PATIENT IDENTITY VERIFICATION COMPLETED USING TWO (2) STANDARD IDENTIFIERS: Name and Date of confirmed by patient verbally. FALL SCREENING: Has the patient had 2 falls in the last year or 1 fall with injury or currently using an Ambulatory Assistive Device (Walker, Cane, Wheelchair, Crutches, etc.)? No PATIENT GENDER DATA: Assigned female at . status: : No status: NO. PATIENT RELEVANT IMPLANT DATA REVIEWED: Yes PATIENT PRESENTS WITH AN IMPLANTABLE OR ATTACHED MOLD DESIGNER: No ALLERGIES: Reviewed and unchanged CONTRAST ALLERGY: NO. EXAM: MRI - CONTRAST TYPE: GROUP II PERIPHERAL IV DATA: Ambulatory: A peripheral IV was started in the Right antecubital site with a Angio cath: 22 gauge. RADIOLOGY DEPARTMENT: MR; Exam(s) Completed: Chest: Breast SIGNATURE: VELIA Germain PATIENT NAME: Cara Singh DATE: June 01, 2024 TIME: 8:15 AM [facility] 05-31-2024 Note HNO ID: [id number] Author: JAY FAUST, DO Service: ? Author Type: Physician Type: Progress Notes Filed: 06/01/2024 17:14 Note Text: Oncologic problem(s): 1) Recurrent breast cancer. HPI: The patient is a 49 yo female who was diagnosed with a stage I (pT1a, N0) right breast cancer in 2013 following an abnormality found on her initial screening mammogram. Underwent a right-sided mastectomy along with sentinel lymph node biopsy on 06/20/2013. Pathology: A) SENTINEL LYMPH NODE #1, EXCISION: - One lymph node, negative for carcinoma (0/1). B) SENTINEL LYMPH NODE #2, EXCISION: - One lymph node, negative for carcinoma (0/1). C) SENTINEL LYMPH NODE #3, EXCISION: - One lymph node, negative for carcinoma (0/1). D) DISTAL TISSUE UNDER NIPPLE, RIGHT BREAST, EXCISION: - Negative for carcinoma. E) RIGHT BREAST, NIPPLE SPARING MASTECTOMY: - Invasive ductal carcinoma. - Ductal carcinoma in situ, nuclear grade 2, solid and cribriform types. - Changes consistent with prior biopsy site. - Surgical margins of resection are negative for carcinoma or carcinoma in situ. - See comment. COMMENT An immunohistochemical stain for p63 is negative in the focus of invasive carcinoma supporting the above diagnosis. BREAST (INVASIVE CARCINOMA) SYNOPTIC REPORT PROCEDURE: Total mastectomy (nipple sparing) LYMPH NODE SAMPLING: Gilson lymph nodes SPECIMEN LATERALITY: Right HISTOLOGIC TYPE OF INVASIVE CARCINOMA: Invasive ductal carcinoma TUMOR SIZE (GREATEST DIMENSION OF LARGEST FOCUS OF INVASION GREATER THAN 1 MM): 1.1 mm LIBERTY HISTOLOGIC GRADE: Grade 1 - GLANDULAR/TUBULAR DIFFERENTIATION: Score 1 - NUCLEAR PLEOMORPHISM: Score 2 - MITOTIC RATE: Score 2 TUMOR FOCALITY: Single focus of invasive carcinoma DUCTAL CARCINOMA IN SITU (DCIS): Present MACROSCOPIC/MICROSCOPIC EXTENT OF TUMOR: - Skin: Uninvolved by invasive carcinoma or carcinoma in situ MARGINS: Margins uninvolved by invasive carcinoma - - Distance of invasive carcinoma from closest margin: 9 mm from the anterior radial margin MARGINS: Margins uninvolved by DCIS - - Distance of DCIS from closest margin: 6 mm from the anterior radial margin LYMPH NODES: - Number of sentinel lymph nodes examined: 3 - Total number of lymph nodes examined (sentinel and non-sentinel): 3 - - Number of lymph nodes with macrometastasis: 0 - - Number of lymph nodes with micrometastasis: 0 - - Number of lymph nodes with isolated tumor cells: 0 LYMPH VASCULAR INVASION: Not identified PATHOLOGIC STAGING: pT1a pN0 (sn) pM - Not applicable ANCILLARY STUDIES: Previously performed, please see separate report [id number] for additional details. - Estrogen Receptors: Positive, greater than 95%; stain intensity is strong - Progesterone Receptors: Positive, 80%; stain intensity is moderate - HER2 (FISH): Not amplified She has bilateral implants. Her left implant was placed in November 2013 for symmetry and augmentation. She began tamoxifen on July 23, 2013. Stopped 05/2015 due to significant hot flashes and mood swings. OB found lump in left breast. Mammogram and US ?suggested cyst. Was referred to Dr. Garza US left breast : No prior exams were available for comparison. Ultrasound of the left breast 2 o'clock, and axilla regions was performed. Grady scale images of the real-time examination were reviewed. There is 0.9 cm x 0.6 cm x 0.9 cm lobulated mass with an indistinct margin in the left breast at 2 o'clock middle depth 5 cm from the nipple. This lobulated mass is hypoechoic. This correlates as palpated. IMPRESSION: SUSPICIOUS FINDING - BIOPSY SHOULD BE CONSIDERED The 0.9 cm x 0.6 cm x 0.9 cm lobulated mass in the left breast has a differential diagnosis of a solid mass or fat necrosis and is suspicious of malignancy. An ultrasound guided biopsy is recommended. Pathology: CORE BIOPSY OF LEFT BREAST (2 O'CLOCK, 5 CM FROM NIPPLE) - INVASIVE WELL DIFFERENTIATED MAMMARY CARCINOMA. COMMENT: The tumor has the architectural features of a lobular carcinoma with absence of tubule formation (tubule score =3) and a single file pattern of infiltration. There is grade 1 nuclear atypia and mitoses are not identified (mitotic score = 1) for a total Liberty score of 5 corresponding to a grade 1 tumor. No in situ component is identified. No vascular invasion is found to be present. Despite having the typical histologic features of invasive lobular carcinoma, an E-cadherin immunostain reveals the tumor cells to be strongly positive. This suggests that the tumor may have mixed ductal and lobular features. A cytokeratin immunostain was performed to better identify the tumor cells. This case was also reviewed by Dr. Ron Amor who agrees with the diagnosis. THERAPEUTIC MARKER ANALYSIS ER - - - - - Positive, 90%, strong diffuse staining. AK - - - - - Positive, 80%, strong diffuse staining. HER2- - - -Interpretation: NEGATIVE for (more content not included)... [facility] 05-31-2024 History of Present illness Narrative Oncologic problem(s): 1) Recurrent breast cancer. HPI: The patient is a 49 yo female who was diagnosed with a stage I (pT1a, N0) right breast cancer in 2013 following an abnormality found on her initial screening mammogram. Underwent a right-sided mastectomy along with sentinel lymph node biopsy on 06/20/2013. Pathology: A) SENTINEL LYMPH NODE #1, EXCISION: - One lymph node, negative for carcinoma (0/1). B) SENTINEL LYMPH NODE #2, EXCISION: - One lymph node, negative for carcinoma (0/1). C) SENTINEL LYMPH NODE #3, EXCISION: - One lymph node, negative for carcinoma (0/1). D) DISTAL TISSUE UNDER NIPPLE, RIGHT BREAST, EXCISION: - Negative for carcinoma. E) RIGHT BREAST, NIPPLE SPARING MASTECTOMY: - Invasive ductal carcinoma. - Ductal carcinoma in situ, nuclear grade 2, solid and cribriform types. - Changes consistent with prior biopsy site. - Surgical margins of resection are negative for carcinoma or carcinoma in situ. - See comment. COMMENT An immunohistochemical stain for p63 is negative in the focus of invasive carcinoma supporting the above diagnosis. BREAST (INVASIVE CARCINOMA) SYNOPTIC REPORT PROCEDURE: Total mastectomy (nipple sparing) LYMPH NODE SAMPLING: Gilson lymph nodes SPECIMEN LATERALITY: Right HISTOLOGIC TYPE OF INVASIVE CARCINOMA: Invasive ductal carcinoma TUMOR SIZE (GREATEST DIMENSION OF LARGEST FOCUS OF INVASION GREATER THAN 1 MM): 1.1 mm LIBERTY HISTOLOGIC GRADE: Grade 1 - GLANDULAR/TUBULAR DIFFERENTIATION: Score 1 - NUCLEAR PLEOMORPHISM: Score 2 - MITOTIC RATE: Score 2 TUMOR FOCALITY: Single focus of invasive carcinoma DUCTAL CARCINOMA IN SITU (DCIS): Present MACROSCOPIC/MICROSCOPIC EXTENT OF TUMOR: - Skin: Uninvolved by invasive carcinoma or carcinoma in situ MARGINS: Margins uninvolved by invasive carcinoma - - Distance of invasive carcinoma from closest margin: 9 mm from the anterior radial margin MARGINS: Margins uninvolved by DCIS - - Distance of DCIS from closest margin: 6 mm from the anterior radial margin LYMPH NODES: - Number of sentinel lymph nodes examined: 3 - Total number of lymph nodes examined (sentinel and non-sentinel): 3 - - Number of lymph nodes with macrometastasis: 0 - - Number of lymph nodes with micrometastasis: 0 - - Number of lymph nodes with isolated tumor cells: 0 LYMPH VASCULAR INVASION: Not identified PATHOLOGIC STAGING: pT1a pN0 (sn) pM - Not applicable ANCILLARY STUDIES: Previously performed, please see separate report [id number] for additional details. - Estrogen Receptors: Positive, greater than 95%; stain intensity is strong - Progesterone Receptors: Positive, 80%; stain intensity is moderate - HER2 (FISH): Not amplified She has bilateral implants. Her left implant was placed in November 2013 for symmetry and augmentation. She began tamoxifen on July 23, 2013. Stopped 05/2015 due to significant hot flashes and mood swings. OB found lump in left breast. Mammogram and US ?suggested cyst. Was referred to Dr. Garza US left breast : No prior exams were available for comparison. Ultrasound of the left breast 2 o'clock, and axilla regions was performed. Grady scale images of the real-time examination were reviewed. There is 0.9 cm x 0.6 cm x 0.9 cm lobulated mass with an indistinct margin in the left breast at 2 o'clock middle depth 5 cm from the nipple. This lobulated mass is hypoechoic. This correlates as palpated. IMPRESSION: SUSPICIOUS FINDING - BIOPSY SHOULD BE CONSIDERED The 0.9 cm x 0.6 cm x 0.9 cm lobulated mass in the left breast has a differential diagnosis of a solid mass or fat necrosis and is suspicious of malignancy. An ultrasound guided biopsy is recommended. Pathology: CORE BIOPSY OF LEFT BREAST (2 O'CLOCK, 5 CM FROM NIPPLE) - INVASIVE WELL DIFFERENTIATED MAMMARY CARCINOMA. COMMENT: The tumor has the architectural features of a lobular carcinoma with absence of tubule formation (tubule score =3) and a single file pattern of infiltration. There is grade 1 nuclear atypia and mitoses are not identified (mitotic score = 1) for a total Carpenter score of 5 corresponding to a grade 1 tumor. No in situ component is identified. No vascular invasion is found to be present. Despite having the typical histologic features of invasive lobular carcinoma, an E-cadherin immunostain reveals the tumor cells to be strongly positive. This suggests that the tumor may have mixed ductal and lobular features. A cytokeratin immunostain was performed to better identify the tumor cells. This case was also reviewed by Dr. Ron Amor who agrees with the diagnosis. THERAPEUTIC MARKER ANALYSIS ER - - - - - Positive, 90%, strong diffuse staining. AK - - - - - Positive, 80%, strong diffuse staining. HER2- - - -Interpretation: NEGATIVE for HER2 (ERBB2) Expression Score: 0 Presents for ongoing oncologic management. Interim history: Underwent a left-sided simple mastectomy along with sentinel lymph node biopsy and complete axillary lymphadenectomy along with immediate breast reconstruction with use of tissue contact person on 07/19/2019. Pathology: FINAL DIAGNOSIS 1. Left sentinel lymph node 1, sentinel node biopsy (A) - One lymph node, negative for metastatic malignancy (0/1). 2. Left sentinel lymph node 2, sentinel node biopsy (B) - Fibroadipose tissue, negative for malignancy. - No lymphoid tissue present. 3. Left sentinel lymph node 3, sentinel node biopsy (C) - One lymph node, negative for metastatic malignancy (0/1). 4. Left breast, nipple sparing mastectomy (D) - Invasive mammary carcinoma with lobular morphology, Liberty grade 1, measuring 8 mm in greatest dimension (please see comment and synoptic report). - Lobular neoplasia (atypical lobular hyperplasia/lobular carcinoma in situ), classic type. - Fibrocystic change including usual ductal hyperplasia and sclerosing adenosis. - Biopsy clip and biopsy site reparative changes identified. EDK/MAP 07/23/2019 COMMENT Per EPIC review, an E-cadherin immunohistochemical stain was performed on the prior core needle biopsy that was interpreted at [facility]. Per report, this stain showed retained expression within the invasive carcinoma. That said, the morphology of the above invasive mammary carcinoma includes single cells arranged in linear arrays, a targetoid distribution around benign epithelial elements and tumor cells with rare foci of intracytoplasmic mucin. Each of these histologic features is typical of invasive lobular carcinoma. The literature supports that a subset (up to 10%) of invasive lobular carcinomas may show aberrant expression of E-cadherin. As such, the above carcinoma is most in keeping with an invasive lobular carcinoma. SYNOPTIC REPORT OF [facility] PATHOLOGIC FINDINGS LEFT BREAST: BREAST INVASIVE CARCINOMA WORKSHEET Part: A, C and D Procedure: Total mastectomy (including nipple-sparing and skin-sparing mastectomy) Specimen Laterality: Left Tumor size: Size of largest invasive carcinoma: Greatest dimension of largest focus of invasion >1 mm: 8 mm Tumor Focality: Single focus of invasive carcinoma Histologic Type of Invasive Carcinoma: Invasive lobular carcinoma Histologic Grade: Glandular (Acinar) / Tubular Differentiation: Score 3 Nuclear Pleomorphism: Score 1 Mitotic Rate: Score 1 (<=3 mitosis per mm2) Overall Grade: Grade I Ductal Carcinoma In Situ: No DCIS is present in specimen Tumor Extension: Skin: Uninvolved Nipple: Not applicable Skeletal muscle: Not applicable Invasive Carcinoma Margins: Margins uninvolved by invasive carcinoma Distance from closest margin: 4 mm Closest margin: Superior radial Distance of invasive carcinoma to deep margin: 4 mm DCIS Margins: No DCIS in specimen Lymph Nodes: Uninvolved by tumor cells Number of lymph nodes examined: 2 Number of sentinel lymph nodes examined: 2 Treatment Effect: No known presurgical therapy Lymph-Vascular Invasion: Not identified Pathologic Stage Classification (pTNM,AJCC 8th ed) TNM Descriptor(s): Not applicable Primary Tumor (Invasive Carcinoma) (pT): pT1b Regional Lymph Nodes (pN): Modifier: (sn): Gilson node(s) evaluated Category (pN): pN0 Distant metastasis: Distant Metastasis (pM) Not applicable/Not confirmed pathologically in this case Estrogen & progesterone receptors: Previously performed and reported as follows: Estrogen receptor: Positive (90%, strong) Progesterone receptor: Positive (80%, strong) Specimen number #: [facility] [id number] (HER2) ERBB2 Status: Previously performed and reported as follows: HER2:Negative (0) Presents for ongoing oncologic management. Interim history: Last seen here 10/08/2019 and was reportedly taking tamoxifen. Per Radha Christianson's note 05/04/2024: 10/2019 she had a TE exchange for a permanent smooth round silicone retropectoral implant by Dr. Chirinos. Oncotype RS was 14 corresponding to a 4% risk of distant recurrence at 10 years; thus chemotherapy was not recommended. She started Tamoxifen in 07/2019 and then stopped it in early 2020 due to side effects again. She is not interested in going back on any type of medication. She has not seen Med/Onc Dr. Faust since 2019. She reports that she was advised there isn't a significant benefit of taking Tamoxifen following mastectomies. 05/2013 Cara Ramirez's clinical Integrated BRACAnalysis was negative for a deleterious mutation. 04/2021 she returned for panel testing at OSH. She shared the results with me which were uploaded into the chart. 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 Didn't follow up here after 09/2019. 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 Appreciated lump right upper inner breast early April 2024. US 05/14/2024: IMPRESSION: 1.2 cm mass with indistinct margins in the right breast at 2:00, which is at moderate suspicion for malignancy. Ultrasound-guided biopsy is recommended. US guided biopsy 05/26/2024. Pathology: A: Breast, right, 2:00, 8 cmfn, 1.3 cm mass, ultrasound-guided biopsy with zipper setter chainstitch reflector placement: - Invasive mammary carcinoma, provisional Carpenter grade 2, measuring at least 3 mm in greatest dimension. This addendum is to report results of immunohistochemical studies with no changes in the final interpretation. Immunohistochemical studies confirm the carcinoma cells display predominantly intact membranous expression of E-cadherin and [id number], supporting ductal phenotype. ER positive (greater than 90% with strong staining intensity) AK positive (50% with moderate staining intensity). HER2 IHC 1+. Tumor grade is 2. Menses have been regular, but most recent was about 2 weeks late. Starting last summer has had heavier menstrual bleeding. Seeing Dr. Andrews. 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 Raynaud phenomenon Rotator cuff strain rehab treatment finish 12/2012 Urinary calculus, unspecified 02/2010, 05/2019 ESWL Varicose veins of other sites PAST SURGICAL HISTORY Procedure Laterality Date BIOPSY BREAST 05/2013 right breast BREAST AUGMENTATION W/PROSTHETIC IMPLANT s/p R mastectomy; new implant 06/2014 COLPOSCOPY CERVIX UPPER/ADJACENT VAGINA 08/15/06 Colposcopy EXC/DSTRJ LINGUAL TONSIL ANY METHOD SPX INSERT INTRAUTERINE DEVICE 05/14/2010 mirena , REMOVED IUD REMOVAL 07/06/12 LITHOTRIPSY XTRCORP SHOCK WAVE 02/2010 Lithotripsy MASTECTOMY HX Left 07/2019 MASTECTOMY, SIMPLE, COMPLETE 06/20/2013 Dr. Garza right breast with sln bx and nipple sparing REVISION OF RECONSTRUCTED BREAST 06/18/14 ALLERGIES No Known Allergies Current Outpatient Medications Medication Sig loratadine (CLARITIN) 10 mg tablet Take 10 mg by mouth once daily. losartan (COZAAR) 25 mg tablet Take 25 mg by mouth once daily. OREGANO OIL ORAL Take by mouth. Intermittently for sinus congestion albuterol HFA (PROAIR HFA) 90 mcg/actuation inhaler inhale 1 puff by mouth every 4 hours as needed for wheezing/shortnessof breath. as directed fluticasone (FLONASE) 50 mcg/actuation nasal spray Use 1 [place] in each nostril daily at bedtime. No current facility-administered medications for this visit. Social History Tobacco Use Smoking status: Never Smokeless tobacco: Never Vaping Use Vaping status: Never Used Substance Use Topics Alcohol use: Yes Alcohol/week: 7.0 standard drinks of alcohol Types: 7 Glasses of Wine (5oz) per week Comment: glass of wine Drug use: Never Family History Problem Relation Age of Onset Hypertension Mother Lipids Mother Psychiatry Mother Skin Cancer Mother Breast Cancer Mother Lipids Father Prostate Cancer Father 67 Hypertension Father Asthma Brother Allergies Brother Heart Brother Breast Cancer Maternal Grandmother dx 50's Diabetes Maternal Grandmother Cancer Maternal Grandfather Cerebral Embolism Paternal Grandfather Stroke Paternal Grandfather Breast Cancer Maternal Aunt Mother's half sister. of breast cancer Cancer Paternal Uncle BRAIN TUMOR Ovarian cancer No Family History Colon Cancer No Family History other (mitral valve) No Family History ROS: Constitutional: Denies episodes of fever and night sweats. Not significantly fatigued. Normal appetite. Neuro: Denies vertigo, dizziness and imbalance. Denies symptoms of neuropathy. HEENT: No recent change in voice, vision or hearing. Resp: Denies cough, wheeze and hemoptysis. Denies shortness of breath at rest. Denies [place]. CVS: Denies exertional chest pain, PND, orthopnea and LE edema. GI: Denies dysphagia and odynophagia. Denies reflux, n/v, change in bowel habits and abdominal pain. : Denies dysuria or gross hematuria. Endo: Denies hot flashes. Denies polyuria and polydipsia. Denies heat and cold intolerance. Musculoskeletal: Denies bone, back, joint and muscular pain. Derm: Denies rash. Heme: Denies unusual bleeding and unexplained bruising. Psych: Normal mood. Participation of a fellow, resident, medical student, or advanced practice provider student in performing the sensitive examination was discussed with the patient or authorized personnel representative. The patient or authorized personnel representative has agreed to proceed with the sensitive examination. (Sensitive examination includes inspection and/or palpation of the breasts, pelvis, prostate and anorectal regions) Carol Ann Drake LPN chaperoned. PHYSICAL EXAM: Vitals: Blood pressure 172/78, pulse 89, temperature 37.2 C (98.9 F), temperature source Temporal, height 166.5 cm (5' 5.55), weight 66.2 kg (146 lb), last menstrual period 05/01/2024, SpO2 100%. Well-appearing and in no acute distress. EYES: Sclerae are anicteric bilaterally. LYMPHATIC: There is no palpable cervical, supraclavicular or axillary adenopathy. BREAST: Lateral to right breast implant approximately 2 to 3 o'clock position there is a soft mobile mass approximately 1-1/2 cm. Slightly tender. Mild ecchymosis from recent biopsy. ABDOMEN: The abdomen is nondistended.. ASSESSMENT/PLAN: (C50.411) Malignant neoplasm of upper-outer quadrant of right female breast (HCC) (primary encounter diagnosis) Assessment: -History of a pT1a (0.11 mm; grade 1; no ALI) pN0(sln) (3 of 3 nodes negative) Mx ER/AK positive HER-2 negative invasive ductal carcinoma of the RIGHT breast. -BRCA 1/2 negative (04/2013). -Was on tamoxifen adjuvantly for nearly 2 years. Stopped secondary to side effects of hot flashes and mood swings. -History of a pT1b pN0 M0 ER/AK positive invasive lobular carcinoma the LEFT breast. -Did not take tamoxifen--see note 07/2019. -New cT1c cN0 ER/AK positive, HER2 negative invasive ductal carcinoma of the RIGHT breast. -Already scheduled for MRI and surgical consultation. -Discussed with her that after she undergoes imaging and surgical evaluation tumor board presentation and plan from there. Plan: -OV in about 4-6 weeks. I spent a total of 45 minutes on the date of the service which included preparing to see the patient, [id number] patient care, completing clinical documentation, obtaining and/or reviewing separately obtained history, performing a medically appropriate examination, counseling and educating the patient/family/caregiver, communicating with other HCPs (not separately reported), and communicating results to the patient/family/caregiver. Jay Faust DO documented in this encounter [facility] 05-24-2024 Telephone encounter Note Spoke with patient and advised to keep appointment Pamela Slater [facility] 05-24-2024 Miscellaneous Notes Spoke with patient and advised to keep appointment Pamela Slater Okay to keep the appointment on 05/31. Spoke with patient and scheduled for 05/31 at 10:10. Patient stated she has a MRI on 06/01 so is questioning if she should wait till after the MRI to schedule. Please advise Pamela Slater DX: Invasive mammary carcinoma Referring: Dr. Adam Corona H/O breast cancer. Has seen Dr. Faust in the past- last OV 10/08/2019. PSS- please schedule patient with Dr. Faust in a new patient slot. Carol Ann Drake LPN Patient called stating that Dr. Corona from [place] was referring her to [facility]. No order/referral. Please review and advise. documented in this encounter [facility] 05-24-2024 Telephone encounter Note Okay to keep the appointment on 05/31. [facility] 05-24-2024 Telephone encounter Note Spoke with patient and scheduled for 05/31 at 10:10. Patient stated she has a MRI on 06/01 so is questioning if she should wait till after the MRI to schedule. Please advise Pamela Slater [facility] 05-24-2024 Telephone encounter Note DX: Invasive mammary carcinoma Referring: Dr. Adam Corona H/O breast cancer. Has seen Dr. Faust in the past- last OV 10/08/2019. PSS- please schedule patient with Dr. Faust in a new patient slot. Carol Ann Drake LPN [facility] 05-24-2024 Telephone encounter Note Patient called stating that Dr. Corona from [place] was referring her to Radhames. No order/referral. Please review and advise. [facility] Work Phone: 05-23-2024 Telephone encounter Note Attempted to reach patient for Newly Diagnosed call. Message left requesting return call. Contact information provided. Catherine Arrington RN [facility] 05-23-2024 Miscellaneous Notes Attempted to reach patient for Newly Diagnosed call. Message left requesting return call. Contact information provided. Catherine Arrington RN documented in this encounter [facility] 01-17-2025 History of Present illness Narrative Images from the original note were not included. MEDICAL BREAST PATIENT NAME: Cara Singh HISTORY of PRESENT ILLNESS: Cara Singh is a 49 year old premenopausal woman ([place], near [place]) who presents to the [facility] today for evaluation of a possible lump in her RIGHT upper inner reconstructed breast/sternal region. She noted this palpable area approximately one week ago and denies any other associated symptoms. The patient denies any chest wall masses or skin change bilaterally. She was most recently seen in the breast center by Dareal in 09/2023. In 2013, she had Stage l (pT1a N0) right invasive ductal carcinoma. 03/2013 screening mammogram was abnormal for which subsequent right diagnostic imaging revealed a cluster of calcifications in the UOQ near the nipple. 04/2013 right mammotome biopsy revealed Grade 2 IDC, ER+(>95%)/AK+(80%)/HER2-. 04/2013 breast MRI revealed bilateral enlarged axillary LNs. 06/2013 right nipple-sparing mastectomy/SLNB and TE placement by Drs. Garza/Brodie revealed Grade 2 IDC, 1.1 mm. Margins were negative (closest 9 mm). 0/3 SLN were involved. No LVI. She took tamoxifen for 2 years but stopped in 05/2015 due to significant hot flashes and mood swings. 11/2013 she had a right TE exchange for permanent smooth round silicone retropectoral implant and left breast augmentation with smooth round silicone retropectoral implant, and 06/2014 she had right reconstructed breast revision and an implant exchange bilaterally by Dr. Chirinos. In 2019, she had Stage 1 (pT1b N0 M0) left invasive mammary carcinoma in the upper outer quadrant of breast. At OSH she had an abnormal screening mammogram in 04/2019 for which left US revealed a 9 mm lobulated mass at 2:00, 5 cmfn. 06/2019 left ultrasound guided core biopsy at OSH showed Grade 1 Invasive mammary carcinoma with ductal and lobular features, ER+(90%)/AK+(80%)/HER2-. 07/2019 left nipple sparing mastectomy/SLNB and TE placement with removal of implant by Drs. Garza/Brodie showed an 8 mm Grade 1 Invasive mammary carcinoma with lobular morphology. 0/3 SLNB were involved. Margins were negative (closest 4 mm). No LVI. 10/2019 she had a TE exchange for a permanent smooth round silicone retropectoral implant by Dr. Chirinos. Oncotype RS was 14 corresponding to a 4% risk of distant recurrence at 10 years; thus chemotherapy was not recommended. She started Tamoxifen in 07/2019 and then stopped it in early 2020 due to side effects again. She is not interested in going back on any type of medication. She has not seen Med/Onc Dr. Faust since 2019. She reports that she was advised there isn't a significant benefit of taking Tamoxifen following mastectomies. 05/2013 Cara Ramirez's clinical Integrated BRACAnalysis was negative for a deleterious mutation. 04/2021 she returned for panel testing at OSH. She shared the results with me which were uploaded into the chart. 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 History pertaining to prior breast biopsies, genetic reports, pathology reports, treatment summaries, personal, social and family history has been extracted from Marilynn Petersen' note dated 09/20/2023. Her vitamin D level was Vitamin D 25 Hydroxy (ng/mL) Date Value 08/09/2014 42.0 She takes no supplements. BMD: No PERSONAL BREAST HISTORY: Past breast history (prior to this encounter) is as follows: Breast biopsy: Yes, as above Breast cysts: No Breast surgery: Yes, as above Breast cancer: Yes, as above CANCER SURVEILLANCE: Mammograms: N/A Breast MRI: N/A Colonoscopy: 09/2021 negative per patient report, no results available for review. RISK FACTORS FOR BREAST CANCER: Age at the onset of menses: Patient does not remember. P: 2 Age at the of first child: 31 years of age. She breast fed. Age at menopause: The patient is not menopausal at this time. Post-menopausal hormone therapy: Not applicable She has an intact uterus and ovaries History of Mantle Radiation prior to the age of 28: No Contraception: had a vasectomy BMI: Body mass index is 24.47 kg/m . Current Weight: 147 lbs Mammographic density: Not applicable - she is s/p bilateral mastectomy Personal History of Benign Atypical Breast Biopsy: No Alcohol use: 5-6 per week PAST MEDICAL HISTORY: 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 PAST SURGICAL HISTORY: PAST SURGICAL HISTORY Procedure Laterality Date BIOPSY BREAST 05/2013 right breast BREAST AUGMENTATION W/PROSTHETIC IMPLANT s/p R mastectomy; new implant 06/2014 COLPOSCOPY CERVIX UPPER/ADJACENT VAGINA 08/15/06 Colposcopy EXC/DSTRJ LINGUAL TONSIL ANY METHOD SPX INSERT INTRAUTERINE DEVICE 05/14/2010 mirena , REMOVED IUD REMOVAL 07/06/12 LITHOTRIPSY XTRCORP SHOCK WAVE 02/2010 Lithotripsy MASTECTOMY HX Left 07/2019 MASTECTOMY, SIMPLE, COMPLETE 06/20/2013 Dr. Garza right breast with sln bx and nipple sparing REVISION OF RECONSTRUCTED BREAST 06/18/14 SOCIAL HISTORY: Social History Tobacco Use Smoking status: Never Smokeless tobacco: Never Vaping Use Vaping status: Never Used Substance Use Topics Alcohol use: Yes Alcohol/week: 7.0 standard drinks of alcohol Types: 7 Glasses of Wine (5oz) per week Comment: glass of wine Drug use: Never Caffeine intake: Yes - daily Exercise: 30 minutes/5 times a week or more FAMILY HISTORY: Family history of breast cancer: Maternal grandmother - age unknown Family history of ovarian cancer: None Number of sisters: 0 Number of maternal aunts: 1 Number of paternal aunts: 0 Ashkenazi Ancestry: No Other Cancer: Father - prostate - not metastatic There is no family history of colon, uterine, pancreatic, gastric, brain, renal cell or thyroid cancer. There is no family history of melanoma, sarcoma or leukemia. Osteoporosis: Yes - unsure Stroke: Yes - unsure Blood Clot: Yes - unsure Heart attack: Yes - unsure Thyroid Nodule or Goiter: None Autism: None FAMILY HISTORY Problem Relation Age of Onset Hypertension Mother Lipids Mother Psychiatry Mother Skin Cancer Mother Lipids Father Prostate Cancer Father 67 Hypertension Father Asthma Brother Allergies Brother Heart Brother Breast Cancer Maternal Grandmother dx 50's Diabetes Maternal Grandmother Breast Cancer Maternal Aunt Mother's half sister. of breast cancer Cancer Maternal Grandfather Cancer Paternal Uncle BRAIN TUMOR Cerebral Embolism Paternal Grandfather Stroke Paternal Grandfather Ovarian cancer No Family History Colon Cancer No Family History other (mitral valve) No Family History MEDICATIONS: L.acid/B.animalis,bifidum/FOS (PROBIOTIC COMPLEX ORAL) Take by mouth once daily. [place] Naturals 90 billion cells losartan (COZAAR) 25 mg tablet Take 25 mg by mouth once daily. OREGANO OIL ORAL Take by mouth. Intermittently for sinus congestion Lactobacillus acidophilus (PROBIOTIC) 10 billion cell cap Take by mouth once daily. Adeas (Patient not taking: Reported on 05/04/2024) tamoxifen (NOLVADEX) 20 mg tablet Take 1 tablet (20 mg) by mouth once daily. (Patient not taking: No sig reported) albuterol HFA (PROAIR HFA) 90 mcg/actuation inhaler inhale 1 puff by mouth every 4 hours as needed for wheezing/shortnessof breath. as directed fluticasone (FLONASE) 50 mcg/actuation nasal spray Use 1 [place] in each nostril daily at bedtime. ALLERGIES: ALLERGIES No Known Allergies REVIEW OF SYSTEMS: She denies chest pain, shortness of breath, persistent cough, severe headaches, unusual bony pains, abdominal pain or unintentional weight loss. PHYSICAL EXAM: BP 170/81 (BP Site: Left Arm, BP Position: Sitting, BP Cuff Size: Regular Adult) Pulse 93 Temp 36.9 C (98.4 F) (Oral) Wt 66.7 kg (147 lb 0.8 oz) LMP 05/01/2024 (Exact Date) SpO2 100% BMI 24.47 kg/m General: well-nourished, healthy, female, alert and oriented x 3, calm Skin: warm, dry, skin color, texture, turgor normal Head/Eyes: normocephalic, atraumatic, and anicteric Breasts and Regional Lymph Nodes: The patient was examined in the upright and supine positions. There is no concerning supraclavicular, infraclavicular or axillary lymphadenopathy. She is s/p bilateral nipple sparing mastectomies with SLNB and implant reconstruction. Within the right upper inner reconstructed breast at 2 o'clock 8.5cmfn (adjacent to sternum), there is a possible palpable nodularity which could also possibly represent a bony prominence (corresponding to her area of clinical concern). There are no chest wall masses or skin changes bilaterally. There is no evidence of local recurrence bilaterally. The implants are soft and non-encapsulated bilaterally. Chest - clear Cor - rrr, no m/r/g IMAGING: Targeted right US was ordered today and will be scheduled (first available). 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 She will schedule the right ultrasound (first available) to further evaluate the clinical area noted above. If her ultrasound is negative, I will recommend that she schedule the fast MRI which was previously ordered by Marilynn. Patient is amenable to this plan. She understands that she reduced her risk 90-95% with the bilateral mastectomy. I advised that she continue to be followed in the Breast Center annually (at least 10 years following diagnosis). She sees her CV RN as well and has a clinical breast exam at that time. Her CHEK2 I157T mutation confers a lower risk than other CHEK2 mutations. Current NCCN guidelines default to personal risk factors/FH in regard to MRI screening IF she had breast tissue. Given that she developed breast cancer twice <50 in the setting of this mutation, we could consider FAST MRI screening (every 5 years as we have considered for high risk genes in setting of mastectomies with retropectoral implants). Genetics referral made: No: Reason: 05/2013 she had negative BRCA1/2 testing. 04/2021 she went back for panel testing at OSH and tested positive for CHEK2 I157T as above. She has a daughter and son that are 14 and 16 years old (2023); thus they wouldn't test until they are adults. Their father has a FH of breast cancer in his mother (< 50); I discussed that I would recommend that she seek testing. If not interested, he can seek testing. These guidelines were printed and shared with the patient. She understands that he daugther would start high risk screening at 30 years old regardless of CHEK2 mutation (given that Marybeth was 40 with her first diagnosis). Chemoprevention discussion: She took Tamoxifen for 2 years then stopped it in 2015 due to intolerance (hot flashes/night sweats, mood change). She then started Tamoxifen again in 07/2019 until early 2020 when she stopped it again due to intolerance. I advised that with ER+ breast cancer, at least 5 years of hormonal therapy is recommended to reduce the risk of recurrence and new primaries. She is not interested in taking any further medication at this time. Given the mastectomies, she has reduced her breast cancer risk up to 95%. The patient is advised to exercise regularly, achieve/maintain ideal body weight, and to limit alcohol consumption to less than 7 drinks weekly for breast cancer risk reduction and overall health. She will return 05/08/20[facility]. Follow-up will depend on imaging results. She will call me in the interim should she have any questions or concerns. I spent a total of 20 minutes on the date of the service which included preparing to see the patient, [id number] patient care, completing clinical documentation, performing a medically appropriate examination, counseling and educating the patient/family/caregiver, and ordering medications, tests, or procedures. Radha Christianson PA-C Medical Breast Specialist CC: Neena Knox MD [address] [place] [address] documented in this encounter [facility] 05-04-2024 Note HNO ID: [id number] Author: RADHA CHRISTIANSON PA-C Service: ? 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 She noted this palpable area approximately one week ago and denies any other associated symptoms. The patient denies any chest wall masses or skin change bilaterally. She was most recently seen in the breast center by Dareal in 09/2023. In 2013, she had Stage l (pT1a N0) right invasive ductal carcinoma. 03/2013 screening mammogram was abnormal for which subsequent right diagnostic imaging revealed a cluster of calcifications in the UOQ near the nipple. 04/2013 right mammotome biopsy revealed Grade 2 IDC, ER+(>95%)/AK+(80%)/HER2-. 04/2013 breast MRI revealed bilateral enlarged axillary LNs. 06/2013 right nipple-sparing mastectomy/SLNB and TE placement by Drs. Garza/Brodie revealed Grade 2 IDC, 1.1 mm. Margins were negative (closest 9 mm). 0/3 SLN were involved. No LVI. She took tamoxifen for 2 years but stopped in 05/2015 due to significant hot flashes and mood swings. 11/2013 she had a right TE exchange for permanent smooth round silicone retropectoral implant and left breast augmentation with smooth round silicone retropectoral implant, and 06/2014 she had right reconstructed breast revision and an implant exchange bilaterally by Dr. Chirinos. In 2019, she had Stage 1 (pT1b N0 M0) left invasive mammary carcinoma in the upper outer quadrant of breast. At OSH she had an abnormal screening mammogram in 04/2019 for which left US revealed a 9 mm lobulated mass at 2:00, 5 cmfn. 06/2019 left ultrasound guided core biopsy at OSH showed Grade 1 Invasive mammary carcinoma with ductal and lobular features, ER+(90%)/AK+(80%)/HER2-. 07/2019 left nipple sparing mastectomy/SLNB and TE placement with removal of implant by Drs. Garza/Brodie showed an 8 mm Grade 1 Invasive mammary carcinoma with lobular morphology. 0/3 SLNB were involved. Margins were negative (closest 4 mm). No LVI. 10/2019 she had a TE exchange for a permanent smooth round silicone retropectoral implant by Dr. Chirinos. Oncotype RS was 14 corresponding to a 4% risk of distant recurrence at 10 years; thus chemotherapy was not recommended. She started Tamoxifen in 07/2019 and then stopped it in early 2020 due to side effects again. She is not interested in going back on any type of medication. She has not seen Med/Onc Dr. Faust since 2019. She reports that she was advised there isn't a significant benefit of taking Tamoxifen following mastectomies. 05/2013 Cara Ramirez's clinical Integrated BRACAnalysis was negative for a deleterious mutation. 04/2021 she returned for panel testing at OSH. She shared the results with me which were uploaded into the chart. 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 History pertaining to prior breast biopsies, genetic reports, pathology reports, treatment summaries, personal, social and family history has been extracted from Marilynn Petersen' note dated 09/20/2023. Her vitamin D level was Vitamin D 25 Hydroxy (ng/mL) Date Value 08/09/2014 42.0 She takes no supplements. BMD: No PERSONAL BREAST HISTORY: Past breast history (prior to this encounter) is as follows: Breast biopsy: Yes, as above Breast cysts: No Breast surgery: Yes, as above Breast cancer: Yes, as above CANCER SURVEILLANCE: Mammograms: N/A Breast MRI: N/A Colonoscopy: 09/2021 negative per patient report, no results available for review. RISK FACTORS FOR BREAST CANCER: Age at the onset of menses: Patient does not remember. P: 2 Age at the of first child: 31 years of age. She breast fed. Age at menopause: The patient is not menopausal at this time. Post-menopausal hormone therapy: Not applicable She has an intact uterus and ovaries History of Mantle Radiation prior to the age of 28: No Contraception: had a vasectomy BMI: Body mass index is 24.47 kg/m?. Current Weight: 147 lbs Mammographic density: Not applicable - she is s/p bilateral mastectomy Personal History of Benign Atypical Breast Biopsy: No Alcohol use: 5-6 per week PAST MEDICAL HISTORY: 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 Hypertension 04/2019 Mild dysplasia of cervix 07/2006 Monoallelic mutatio (more content not included)... [facility] [place] 04-27-2024 Telephone encounter Note Left voicemail re: Nuvosunhart message requesting pt return my call. [facility] Work Phone: 04-27-2024 Miscellaneous Notes Left voicemail re: Nuvosunhart message requesting pt return my call. documented in this encounter [facility] 09-20-2023 History of Present illness Narrative Images from the original note were not included. 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 The patient denies any chest wall masses or skin change bilaterally. In 2013, she had Stage l (pT1a N0) right invasive ductal carcinoma. 03/2013 screening mammogram was abnormal for which subsequent right diagnostic imaging revealed a cluster of calcifications in the UOQ near the nipple. 04/2013 right mammotome biopsy revealed Grade 2 IDC, ER+(>95%)/AK+(80%)/HER2-. 04/2013 breast MRI revealed bilateral enlarged axillary LNs. 06/2013 right nipple-sparing mastectomy/SLNB and TE placement by Drs. Garza/Brodie revealed Grade 2 IDC, 1.1 mm. Margins were negative (closest 9 mm). 0/3 SLN were involved. No LVI. She took tamoxifen for 2 years but stopped in 05/2015 due to significant hot flashes and mood swings. 11/2013 she had a right TE exchange for permanent smooth round silicone retropectoral implant and left breast augmentation with smooth round silicone retropectoral implant, and 06/2014 she had right reconstructed breast revision and an implant exchange bilaterally by Dr. Chirinos. In 2019, she had Stage 1 (pT1b N0 M0) left invasive mammary carcinoma in the upper outer quadrant of breast. At OSH she had an abnormal screening mammogram in 04/2019 for which left US revealed a 9 mm lobulated mass at 2:00, 5 cmfn. 06/2019 left ultrasound guided core biopsy at OSH showed Grade 1 Invasive mammary carcinoma with ductal and lobular features, ER+(90%)/AK+(80%)/HER2-. 07/2019 left nipple sparing mastectomy/SLNB and TE placement with removal of implant by Drs. Garza/Brodie showed an 8 mm Grade 1 Invasive mammary carcinoma with lobular morphology. 0/3 SLNB were involved. Margins were negative (closest 4 mm). No LVI. 10/2019 she had a TE exchange for a permanent smooth round silicone retropectoral implant by Dr. Chirinos. Oncotype RS was 14 corresponding to a 4% risk of distant recurrence at 10 years; thus chemotherapy was not recommended. She started Tamoxifen in 07/2019 and then stopped it in early 2020 due to side effects again. She is not interested in going back on any type of medication. She has not seen Med/Onc Dr. Faust since 2019. She reports that she was advised there isn't a significant benefit of taking Tamoxifen following mastectomies. 05/2013 Cara Ramirez's clinical Integrated BRACAnalysis was negative for a deleterious mutation. 04/2021 she returned for panel testing at OSH. She shared the results with me which were uploaded into the chart. 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 History pertaining to prior breast biopsies, genetic reports, pathology reports, treatment summaries, personal, social and family history has been extracted from 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's note dated 09/15/22. Her vitamin D level was Vitamin D 25 Hydroxy (ng/mL) Date Value 08/09/2014 42.0 She takes no supplements. BMD: No PERSONAL BREAST HISTORY: Past breast history (prior to this encounter) is as follows: Breast biopsy: Yes, as above Breast cysts: No Breast surgery: Yes, as above Breast cancer: Yes, as above CANCER SURVEILLANCE: Mammograms: N/A Breast MRI: N/A Colonoscopy: 09/2021 negative per patient report, no results available for review. RISK FACTORS FOR BREAST CANCER: Age at the onset of menses: Patient does not remember. P: 2 Age at the of first child: 31 years of age. She breast fed. Age at menopause: The patient is not menopausal at this time. Post-menopausal hormone therapy: Not applicable She has an intact uterus and ovaries History of Mantle Radiation prior to the age of 28: No Contraception: had a vasectomy Obesity: No, Body mass index is 23.96 kg/m . Current Weight: 143 lbs Mammographic density: Not applicable - she is s/p bilateral mastectomy Personal History of Benign Atypical Breast Biopsy: No Alcohol use: 5-6 per week PAST MEDICAL HISTORY: 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 PAST SURGICAL HISTORY: PAST SURGICAL HISTORY Procedure Laterality Date BIOPSY BREAST 05/2013 right breast BREAST AUGMENTATION W/PROSTHETIC IMPLANT s/p R mastectomy; new implant 06/2014 COLPOSCOPY CERVIX UPPER/ADJACENT VAGINA 08/15/06 Colposcopy EXC/DSTRJ LINGUAL TONSIL ANY METHOD SPX INSERT INTRAUTERINE DEVICE 05/14/2010 mirena , REMOVED IUD REMOVAL 07/06/12 LITHOTRIPSY XTRCORP SHOCK WAVE 02/2010 Lithotripsy MASTECTOMY HX Left 07/2019 MASTECTOMY, SIMPLE, COMPLETE 06/20/2013 Dr. Garza right breast with sln bx and nipple sparing REVISION OF RECONSTRUCTED BREAST 06/18/14 SOCIAL HISTORY: Social History Tobacco Use Smoking status: Never Smokeless tobacco: Never Vaping Use Vaping Use: Never used Substance Use Topics Alcohol use: Yes Alcohol/week: 7.0 standard drinks of alcohol Types: 7 Glasses of Wine (5oz) per week Comment: glass of wine Drug use: Never Caffeine intake: Yes - daily Exercise: 30 minutes/5 times a week or more FAMILY HISTORY: Family history of breast cancer: Maternal grandmother - age unknown Family history of ovarian cancer: None Number of sisters: 0 Number of maternal aunts: 1 Number of paternal aunts: 0 Ashkenazi Ancestry: No Has Patient had Genetic Testing? Yes 05/2013 negative BRCA1/2; 04/2021 panel testing CHEK2 positive as above Other Cancer: Father - prostate - not metastatic There is no family history of colon, uterine, pancreatic, gastric, brain, renal cell or thyroid cancer. There is no family history of melanoma, sarcoma or leukemia. Osteoporosis: Yes - unsure Stroke: Yes - unsure Blood Clot: Yes - unsure Heart attack: Yes - unsure Thyroid Nodule or Goiter: None Autism: None FAMILY HISTORY Problem Relation Age of Onset Hypertension Mother Lipids Mother Psychiatry Mother Skin Cancer Mother Lipids Father Prostate Cancer Father 67 Hypertension Father Asthma Brother Allergies Brother Heart Brother Breast Cancer Maternal Grandmother dx 50's Diabetes Maternal Grandmother Breast Cancer Maternal Aunt Mother's half sister. of breast cancer Cancer Maternal Grandfather Cancer Paternal Uncle BRAIN TUMOR Cerebral Embolism Paternal Grandfather Stroke Paternal Grandfather Ovarian cancer No Family History Colon Cancer No Family History other (mitral valve) No Family History MEDICATIONS: tamoxifen (NOLVADEX) 20 mg tablet Take 1 tablet (20 mg) by mouth once daily. (Patient not taking: No sig reported) losartan (COZAAR) 25 mg tablet Take 25 mg by mouth once daily. OREGANO OIL ORAL Take by mouth. Intermittently for sinus congestion albuterol HFA (PROAIR HFA) 90 mcg/actuation inhaler inhale 1 puff by mouth every 4 hours as needed for wheezing/shortnessof breath. as directed fluticasone (FLONASE) 50 mcg/actuation nasal spray Use 1 [place] in each nostril daily at bedtime. ALLERGIES: ALLERGIES No Known Allergies REVIEW OF SYSTEMS: She denies chest pain, shortness of breath, persistent cough, severe headaches, unusual bony pains, abdominal pain or unintentional weight loss. PHYSICAL EXAM: BP 134/80 (BP Site: Left Arm, BP Position: Sitting, BP Cuff Size: Regular Adult) Pulse 85 Temp 36.8 C (98.2 F) (Oral) Wt 65.3 kg (143 lb 15.4 oz) LMP 09/15/2023 (Exact Date) SpO2 100% BMI 23.96 kg/m General: well-nourished, healthy, female, alert and oriented x 3, calm Skin: warm, dry, skin color, texture, turgor normal Head/Eyes: normocephalic, atraumatic, and anicteric Breasts and Regional Lymph Nodes: The patient was examined in the upright and supine positions. There is no concerning supraclavicular, infraclavicular or axillary lymphadenopathy. She is s/p bilateral nipple sparing mastectomies with SLNB and implant reconstruction. There are no chest wall masses or skin changes bilaterally. There is no evidence of local recurrence bilaterally. The implants are soft and non-encapsulated bilaterally. Chest - clear Cor - rrr, no m/r/g . IMAGING: Deferred. Not applicable - she is s/p bilateral mastectomy. 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 There is no evidence of malignancy. The patient was reassured as to the benign nature of her clinical findings. She understands that she reduced her risk 90-95% with the bilateral mastectomy. I advised that she continue to be followed in the Breast Center annually as she lives near [place] (at least 10 years following diagnosis). She does see her CV RN and has an annual clinical breast exam at that time. Her CHEK2 I157T mutation confers a lower risk than other CHEK2 mutations. Current NCCN guidelines default to personal risk factors/FH in regard to MRI screening IF she had breast tissue. Given that she developed breast cancer twice <50 in the setting of this mutation and took Tamoxifen for a limited time even in setting of mastectomies, we could consider FAST MRI screening (every 5 years as we have considered for high risk genes in setting of mastectomies with retropectoral implants). She would like to give it some thought and let me know if interested in moving forward with FAST MRI at for $250. Genetics referral made: No: Reason: 05/2013 she had negative BRCA1/2 testing. 04/2021 she went back for panel testing at [facility] and tested positive for CHEK2 I157T as above. She has a daughter and son that are 14 and 16 years old (2023); thus they wouldn't test until they are adults. Their father has a FH of breast cancer in his mother (<50); I discussed that I would recommend that she seek testing. If not interested, he can seek testing. She is up to date for a colonoscopy and understands it is recommended every 5 years. These guidelines were printed and shared with the patient. She understands that he daugther would start high risk screening at 30 years old regardless of CHEK2 mutation (given that Marybeth was 38 with her first diagnosis). Chemoprevention discussion: She took Tamoxifen for 2 years then stopped it in 2015 due to intolerance (hot flashes/night sweats, mood change). She then started Tamoxifen again in 07/2019 until early 2020 when she stopped it again due to intolerance. I advised that with ER+ breast cancer, at least 5 years of hormonal therapy is recommended to reduce the risk of recurrence and new primaries. She is not interested in taking any further medication at this time. Given the mastectomies, she has reduced her breast cancer risk up to 95%. The patient is advised to exercise regularly, achieve/maintain ideal body weight, and to limit alcohol consumption to less than 7 drinks weekly for breast cancer risk reduction and overall health. She will alternate visits with her CV RN and Medical Breast every 6 months for a clinical breast exam. She will return for a clinical exam in 09/2024. She will call me in the interim should she have any questions or concerns. I spent a total of 40 minutes on the date of the service which included preparing to see the patient, [id number] patient care, completing clinical documentation, obtaining and/or reviewing separately obtained history, performing a medically appropriate examination, and counseling and educating the patient/family/caregiver. Marilynn Petersen PA-C Medical Breast Specialist September 20, 2023 CC: Maryjo Garza [id number] [address] [place] [id number] Neena Knox MD [address] [facility] [place] [address] documented in this encounter [facility] 09-20-2023 Note HNO ID: [id number] Author: MARIYLNN PETERSEN PA-C Service: ? 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 The patient denies any chest wall masses or skin change bilaterally. In 2013, she had Stage l (pT1a N0) right invasive ductal carcinoma. 03/2013 screening mammogram was abnormal for which subsequent right diagnostic imaging revealed a cluster of calcifications in the UOQ near the nipple. 04/2013 right mammotome biopsy revealed Grade 2 IDC, ER+(>95%)/AK+(80%)/HER2-. 04/2013 breast MRI revealed bilateral enlarged axillary LNs. 06/2013 right nipple-sparing mastectomy/SLNB and TE placement by Drs. Garza/Brodie revealed Grade 2 IDC, 1.1 mm. Margins were negative (closest 9 mm). 0/3 SLN were involved. No LVI. She took tamoxifen for 2 years but stopped in 05/2015 due to significant hot flashes and mood swings. 11/2013 she had a right TE exchange for permanent smooth round silicone retropectoral implant and left breast augmentation with smooth round silicone retropectoral implant, and 06/2014 she had right reconstructed breast revision and an implant exchange bilaterally by Dr. Chirinos. In 2019, she had Stage 1 (pT1b N0 M0) left invasive mammary carcinoma in the upper outer quadrant of breast. At OSH she had an abnormal screening mammogram in 04/2019 for which left US revealed a 9 mm lobulated mass at 2:00, 5 cmfn. 06/2019 left ultrasound guided core biopsy at OSH showed Grade 1 Invasive mammary carcinoma with ductal and lobular features, ER+(90%)/AK+(80%)/HER2-. 07/2019 left nipple sparing mastectomy/SLNB and TE placement with removal of implant by Drs. Garza/Brodie showed an 8 mm Grade 1 Invasive mammary carcinoma with lobular morphology. 0/3 SLNB were involved. Margins were negative (closest 4 mm). No LVI. 10/2019 she had a TE exchange for a permanent smooth round silicone retropectoral implant by Dr. Chirinos. Oncotype RS was 14 corresponding to a 4% risk of distant recurrence at 10 years; thus chemotherapy was not recommended. She started Tamoxifen in 07/2019 and then stopped it in early 2020 due to side effects again. She is not interested in going back on any type of medication. She has not seen Med/Onc Dr. Faust since 2019. She reports that she was advised there isn't a significant benefit of taking Tamoxifen following mastectomies. 05/2013 Cara Gaytander's clinical Integrated BRACAnalysis was negative for a deleterious mutation. 04/2021 she returned for panel testing at OSH. She shared the results with me which were uploaded into the chart. 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 History pertaining to prior breast biopsies, genetic reports, pathology reports, treatment summaries, personal, social and family history has been extracted from 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's note dated 09/15/22. Her vitamin D level was Vitamin D 25 Hydroxy (ng/mL) Date Value 08/09/2014 42.0 She takes no supplements. BMD: No PERSONAL BREAST HISTORY: Past breast history (prior to this encounter) is as follows: Breast biopsy: Yes, as above Breast cysts: No Breast surgery: Yes, as above Breast cancer: Yes, as above CANCER SURVEILLANCE: Mammograms: N/A Breast MRI: N/A Colonoscopy: 09/2021 negative per patient report, no results available for review. RISK FACTORS FOR BREAST CANCER: Age at the onset of menses: Patient does not remember. P: 2 Age at the of first child: 31 years of age. She breast fed. Age at menopause: The patient is not menopausal at this time. Post-menopausal hormone therapy: Not applicable She has an intact uterus and ovaries History of Mantle Radiation prior to the age of 30: No Contraception: had a vasectomy Obesity: No, Body mass index is 23.96 kg/m?. Current Weight: 143 lbs Mammographic density: Not applicable - she is s/p bilateral mastectomy Personal History of Benign Atypical Breast Biopsy: No Alcohol use: 5-6 per week PAST MEDICAL HISTORY: 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 [facility] [place] 09-15-2022 Nurse Note Reason for today's visit: hx of breast cancer Palpates a breast change? no Nipple discharge? no Swelling in either upper extremity? no Taking hormonal medication? no Full Range of motion? yes Wellness: Self breast self exams: yes Regular exercise routine: yes Following Lymphedema awareness/precautions yes Managing stress: yes Stress level on a scale of 1 - 10:2 Instruction: Monthly self breast exams Healthy diet Exercise program Lymphedema precautions/awareness Other: Requisitions needed: Bras/prosthesis Compression Sleeve/glove Breast Rehab documented in this encounter [facility] 09-15-2022 History of Present illness Narrative Images from the original note were not included. 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 The patient denies any chest wall masses or skin change bilaterally. She no longer is reporting left chest wall discomfort. She has no chest wall concerns today. In 2013, she had Stage l (pT1a N0) right invasive ductal carcinoma. 03/2013 screening mammogram was abnormal for which subsequent right diagnostic imaging revealed a cluster of calcifications in the UOQ near the nipple. 04/2013 right mammotome biopsy revealed Grade 2 IDC, ER+(>95%)/AK+(80%)/HER2-. 04/2013 breast MRI revealed bilateral enlarged axillary LNs. 06/2013 right nipple-sparing mastectomy/SLNB and TE placement by Drs. Garza/Brodie revealed Grade 2 IDC, 1.1 mm. Margins were negative (closest 9 mm). 0/3 SLN were involved. No LVI. She took tamoxifen for 2 years but stopped in 05/2015 due to significant hot flashes and mood swings. 11/2013 she had a right TE exchange for permanent smooth round silicone retropectoral implant and left breast augmentation with smooth round silicone retropectoral implant, and 06/2014 she had right reconstructed breast revision and an implant exchange for a new one both by Dr. Chirinos. In 2019, she had Stage 1 (pT1b N0 M0) left invasive mammary carcinoma in the upper outer quadrant of breast. At OSH she had an abnormal screening mammogram in 04/2019 for which left US revealed a 9 mm lobulated mass at 2:00, 5 cmfn. 06/2019 left ultrasound guided core biopsy at OSH showed Grade 1 Invasive mammary carcinoma with ductal and lobular features, ER+(90%)/AK+(80%)/HER2-. 07/2019 left nipple sparing mastectomy/SLNB and TE placement with removal of implant by Drs. Garza/Brodie showed an 8 mm Grade 1 Invasive mammary carcinoma with lobular morphology. 0/3 SLNB were involved. Margins were negative (closest 4 mm). No LVI. 10/2019 she had a TE exchange for a permanent smooth round silicone retropectoral implant by Dr. Chirinos. Oncotype RS was 14 corresponding to a 4% risk of distant recurrence at 10 years; thus chemotherapy was not recommended. She started Tamoxifen in 07/2019 and then stopped it in early 2020 due to side effects again. She is not interested in going back on any type of medication. She has not seen Med/Onc Dr. Faust since 2019. She reports she was told there isn't a significant benefit of taking Tamoxifen following mastectomies. 05/2013 Cara Ramirez's clinical Integrated BRACAnalysis was negative for a deleterious mutation. 04/2021 she return for panel testing at OSH. She shared the results with me which will be uploaded into the chart. 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 She is scheduled for a colonoscopy in September 2021 due to the colorectal cancer risk. History pertaining to prior breast biopsies, genetic reports, pathology reports, treatment summaries, personal, social and family history has been extracted from Marilynn's note dated 08/20/2021 Her vitamin D level was Vitamin D 25 Hydroxy (ng/mL) Date Value 08/09/2014 42.0 She takes no supplements. BMD: No PERSONAL BREAST HISTORY: Past breast history (prior to this encounter) is as follows: Breast biopsy: Yes, as above Breast cysts: No Breast surgery: Yes, as above Breast cancer: Yes, as above CANCER SURVEILLANCE: Mammograms: N/A Breast MRI: N/A Colonoscopy: 09/2021 negative per the patient, no results available for review. RISK FACTORS FOR BREAST CANCER: Age at the onset of menses: Patient does not remember. P: 2 Age at the of first child: 31 years of age. She breast fed. Age at menopause: The patient is not menopausal at this time. Post-menopausal hormone therapy: Not applicable She has an intact uterus and ovaries History of Mantle Radiation prior to the age of 30: No Contraception: had a vasectomy Obesity: No, Body mass index is 23.66 kg/m . Current Weight: 142 lbs Mammographic density: Not applicable - she is s/p bilateral mastectomy Personal History of Benign Atypical Breast Biopsy: No Alcohol use: 5-6 per week PAST MEDICAL HISTORY: 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 PAST SURGICAL HISTORY: PAST SURGICAL HISTORY Procedure Laterality Date BIOPSY BREAST 05/2013 right breast BREAST AUGMENTATION W/PROSTHETIC IMPLANT s/p R mastectomy; new implant 06/2014 COLPOSCOPY CERVIX UPPER/ADJACENT VAGINA 08/15/06 Colposcopy EXC/DSTRJ LINGUAL TONSIL ANY METHOD SPX INSERT INTRAUTERINE DEVICE 05/14/2010 mirena , REMOVED IUD REMOVAL 07/06/12 LITHOTRIPSY XTRCORP SHOCK WAVE 02/2010 Lithotripsy MASTECTOMY HX Left 07/2019 MASTECTOMY, SIMPLE, COMPLETE 06/20/2013 Dr. Garza right breast with sln bx and nipple sparing REVISION OF RECONSTRUCTED BREAST 06/18/14 SOCIAL HISTORY: Social History Tobacco Use Smoking status: Never Smokeless tobacco: Never Vaping Use Vaping Use: Never used Substance Use Topics Alcohol use: Yes Alcohol/week: 7.0 standard drinks Types: 7 Glasses of Wine (5oz) per week Comment: glass of wine Drug use: Never Caffeine intake: Yes - daily Exercise: 30 minutes/5 times a week or more FAMILY HISTORY: Family history of breast cancer: Maternal grandmother - age unknown Family history of ovarian cancer: None Number of sisters: 0 Number of maternal aunts: 1 Number of paternal aunts: 0 Ashkenazi Ancestry: No Has Patient had Genetic Testing? Yes 05/2013 negative BRCA1/2; 04/2021 panel testing revealed she is CHEK2 positive as above Other Cancer: Father - prostate - not metastatic There is no family history of colon, uterine, pancreatic, gastric, brain, renal cell or thyroid cancer. There is no family history of melanoma, sarcoma or leukemia. Osteoporosis: Yes - unsure Stroke: Yes - unsure Blood Clot: Yes - unsure Heart attack: Yes - unsure Thyroid Nodule or Goiter: None Autism: None FAMILY HISTORY Problem Relation Age of Onset Hypertension Mother Lipids Mother Psychiatry Mother Skin Cancer Mother Lipids Father Prostate Cancer Father 67 Hypertension Father Asthma Brother Allergies Brother Heart Brother Breast Cancer Maternal Grandmother dx 50's Diabetes Maternal Grandmother Breast Cancer Maternal Aunt Mother's half sister. of breast cancer Cancer Maternal Grandfather Cancer Paternal Uncle BRAIN TUMOR Cerebral Embolism Paternal Grandfather Stroke Paternal Grandfather Ovarian cancer No Family History Colon Cancer No Family History other (mitral valve) No Family History MEDICATIONS: losartan (COZAAR) 25 mg tablet Take 25 mg by mouth once daily. OREGANO OIL ORAL Take by mouth. Intermittently for sinus congestion albuterol HFA (PROAIR HFA) 90 mcg/actuation inhaler inhale 1 puff by mouth every 4 hours as needed for wheezing/shortnessof breath. as directed fluticasone (FLONASE) 50 mcg/actuation nasal spray Use 1 [place] in each nostril daily at bedtime. tamoxifen (NOLVADEX) 20 mg tablet Take 1 tablet (20 mg) by mouth once daily. (Patient not taking: No sig reported) ALLERGIES: ALLERGIES No Known Allergies REVIEW OF SYSTEMS: She denies chest pain, shortness of breath, persistent cough, severe headaches, unusual bony pains, abdominal pain or unintentional weight loss. PHYSICAL EXAM: BP 145/69 (BP Site: Right Arm, BP Position: Sitting, BP Cuff Size: Regular Adult) Pulse 83 Temp 36.8 C (98.2 F) Wt 64.5 kg (142 lb 3.2 oz) LMP 09/01/2021 SpO2 100% BMI 23.66 kg/m General: well-nourished, healthy, female, alert and oriented x 3, calm Skin: warm, dry, skin color, texture, turgor normal Head/Eyes: normocephalic, atraumatic, and anicteric Breasts and Regional Lymph Nodes: The patient was examined in the upright and supine positions. There is no concerning supraclavicular, infraclavicular or axillary lymphadenopathy. She is s/p bilateral nipple sparing mastectomies with SLNB and implant reconstruction. There are no chest wall masses or skin changes bilaterally. Specifically, there is no evidence of local recurrence bilaterally. The implants are soft and non-encapsulated bilaterally. There are no visible skin or nipple changes or nipple discharge. IMAGING: Deferred. Not applicable - she is s/p bilateral mastectomy. Assessment IMPRESSION/PLAN: Cara Singh is a 47 year old female with a history of Stage 1 right IDC in 2013 and Stage 1 left Invasive mammary carcinoma in 2019 s/p bilateral mastectomies and limited Tamoxifen use, FH of breast cancer, positive for CHEK2 mutation. There is no evidence of malignancy. She will continue to be followed in the Breast Center annually as she lives near [place]. She does see her CV RN and has an annual clinical breast exam at that time. Due to her CHEK2 mutation and subpectoral implant reconstruction, I recommend a screening breast MRI every 5 years. She is NOT interested in having a breast MRI at this time but plans to pursue maybe next year. She will call if she changes her mind and would like to have the supplemental screening sooner. Breast MRI is NOT ROUTINELY recommended for screening following a cancer diagnosis and is NOT recommended for women who have undergone bilateral mastectomy procedures unless otherwise clinically indicated. MRI is recommended for breast cancer survivors with remaining breast tissue who: - Have a history of chest irradiation under the age of 30. - Carry germline mutations conferring increased cancer risk (BRCA1, BRCA2, PTEN, TP53, CDH1, STK11, PALB2, CHEK2, SU) Per [facility] High Risk Care Path recommendations, screening breast MRI may be considered for women under the age of 65 with remaining breast tissue in the following situations: - Age at breast cancer diagnosis under 50 - Mammographically dense tissue (BI-RADS category 3 or 4) - History of invasive lobular breast cancer Genetics referral made: No: Reason: 05/2013 she had negative BRCA1/2 testing. 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 Given that she had a bilateral mastectomy, surveillance would not be required. She has a daughter and son that are 9 and 11 years old; thus they wouldn't test until they are adults. Siblings and parents should also get tested (likely from mother's side given [place] [facility] [place] She is up to date for a colonoscopy and understands it is recommended every 5 years. Chemoprevention discussion: She took Tamoxifen for 2 years then stopped it in 2015 due to intolerance (hot flashes/night sweats, mood change). She then started Tamoxifen again in 07/2019 until early 2020 when she stopped it again due to intolerance. I advised that with ER+ breast cancer, at least 5 years of hormonal therapy is recommended to reduce the risk of recurrence and new primaries. She is not interested in taking any further medication at this time. Given the mastectomies, she has reduced her breast cancer risk up to 95% thus the role of chemoprevention in regards to CHEK2 mutation wouldn't be very significant. The patient is advised to exercise regularly, achieve/maintain ideal body weight, and to limit alcohol consumption to less than 7 drinks weekly for breast cancer risk reduction and overall health. I recommend Vitamin D3 [id number] IU daily for breast and bone health. She will be scheduled virtually with Dr. Fink as a new consult for CHEK2. She will alternate visits with her CV RN and Medical Breast every 6 months for a clinical breast exam. She will return for a clinical exam in 09/2023. She will call me in the interim should she have any questions or concerns. I spent a total of 30 minutes on the date of the service which included preparing to see the patient, [id number] patient care, completing clinical documentation, obtaining and/or reviewing separately obtained history, performing a medically appropriate examination, counseling and educating the patient/family/caregiver, and ordering medications, tests, or procedures. 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 APRN.RASHEED Medical Breast Specialist CC: Marilynn Garza [id number] [address] Neena Knox MD [address] [place] [address] documented in this encounter [facility] 05-06-2022 Note [facility] Pap Smear Specimen Adequacy May 06, 2022 2:32pm Comment . Satisfactory for evaluation. No endocervical component is identified. Comment on above: Satisfactory for [place] luation. No endocervical component is identified. 05-06-2022 Note [facility] Pap Smear Specimen Adequacy May 06, 2022 2:32pm Comment . Satisfactory for evaluation. No endocervical component is identified. Comment on above: Satisfactory for [place] luation. No endocervical component is identified. 02-02-2022 Miscellaneous Notes Formattin g of this note might be different from the original. I called and left patient a voicemail. Advised that if she still has left chest wall pain to complete diagnostic imaging and a clinical exam at her earliest convenience to ensure that are no concerning findings such as cancer. If pain has resolved and she chooses not to schedule, I advised she let me know if possible. Number for breast center shared. Marilynn Petersen PA-C documented in this encounter [facility] 10-22-2021 Miscellaneous Notes I have been unsuccessful in reaching this patient since October 15 to schedule her breast US. I have reached out again and with no call back. Left her a voice mail Instructing her to call me at [phone]. documented in this encounter [facility] 09-30-2021 Miscellaneous Notes I have left several message for patient since 08/20 to schedule an appointment with Dr. Fink for CHEK2 with no return call. Thanks documented in this encounter [facility] 08-20-2021 Nurse Note Reason for today's visit: hx of breast cancer Palpates a breast change? no Nipple discharge? no Swelling in either upper extremity? no Taking hormonal medication? Tamoxifen Full Range of motion? 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 The patient denies any chest wall masses or skin changes bilaterally. She reports an area of discomfort in the left upper inner chest wall for the last few days. There is tenderness to touch in the area; she denies any significant pain. She denies any injuries or increased exertion. In 2013, she had Stage l (pT1a N0) right invasive ductal carcinoma. 03/2013 screening mammogram was abnormal for which subsequent right diagnostic imaging revealed a cluster of calcifications in the UOQ near the nipple. 04/2013 right mammotome biopsy revealed Grade 2 IDC, ER+(>95%)/AK+(80%)/HER2-. 04/2013 breast MRI revealed bilateral enlarged axillary LNs. 06/2013 right nipple-sparing mastectomy/SLNB and TE placement by Drs. Garza/Brodie revealed Grade 2 IDC, 1.1 mm. Margins were negative (closest 9 mm). 0/3 SLN were involved. No LVI. She took tamoxifen for 2 years but stopped in 05/2015 due to significant hot flashes and mood swings. 11/2013 she had a right TE exchange for permanent smooth round silicone retropectoral implant and left breast augmentation with smooth round silicone retropectoral implant, and 06/2014 she had right reconstructed breast revision and an implant exchange for a new one both by Dr. Chirinos. In 2019, she had Stage 1 (pT1b N0 M0) left invasive mammary carcinomain the upper outer quadrant of breast. At OSH she had an abnormal screening mammogram in 04/2019 for which left US revealed a 9 mm lobulated mass at 2:00, 5 cmfn. 06/2019 left ultrasound guided core biopsy at OSH showed Grade 1 Invasive mammary carcinoma with ductal and lobular features, ER+(90%)/AK+(80%)/HER2-. 07/2019 left nipple sparing mastectomy/SLNB and TE placement with removal of implant by Drs. Garza/Brodie showed an 8 mm Grade 1 Invasive mammary carcinoma with lobular morphology. 0/3 SLNB were involved. Margins were negative (closest 4 mm). No LVI. 10/2019 she had a TE exchange for a permanent smooth round silicone retropectoral implant by Dr. Chirinos. Oncotype RS was 14 corresponding to a 4% risk of distant recurrence at 10 years; thus chemotherapy was not recommended. She started Tamoxifen in 07/2019 and then stopped it in early 2020 due to side effects again. She is not interested in going back on any type of medication. She has not seen Med/Onc Dr. Faust since 2019. She reports she was told there isn't a significant benefit of taking Tamoxifen following mastectomies. 05/2013 Cara Ramirez's clinical Integrated BRACAnalysis was negative for a deleterious mutation. 04/2021 she return for panel testing at OSH. She shared the results with me which will be uploaded into the chart. 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 She is scheduled for a colonoscopy in September 2021 due to the colorectal cancer risk. History pertaining to prior breast biopsies, genetic reports, pathology reports, treatment summaries, personal, social and family history has been extracted from Juanita Ferrera's note dated 08/20/20. Her vitamin D level was Vitamin D 25 Hydroxy (ng/mL) Date Value 08/09/2014 42.0 . She takes no supplements. BMD: No PERSONAL BREAST HISTORY: Past breast history (prior to this encounter) is as follows: Breast biopsy: Yes, as above Breast cysts: No Breast surgery: Yes, as above Breast cancer: Yes, as above CANCER SURVEILLANCE: Mammograms: N/A Breast MRI: N/A Colonoscopy: No RISK FACTORS FOR BREAST CANCER: Age at the onset of menses: Patient does not remember. P: 2 Age at the of first child: 31 years of age. She breast fed. Age at menopause: The patient is not menopausal at this time. Post-menopausal hormone therapy: Not applicable She has an intact uterus and ovaries History of Mantle Radiation prior to the age of 28: No Contraception: had a vasectomy Obesity: No Body mass index is 23.06 kg/m . 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 PAST SURGICAL HISTORY: PAST SURGICAL HISTORY Procedure Laterality Date BIOPSY BREAST 05/2013 right breast BREAST AUGMENTATION W/PROSTHETIC IMPLANT s/p R mastectomy; new implant 06/2014 COLPOSCOPY (VAGINOSCOPY) 08/15/06 Colposcopy EXCISION OF LINGUAL TONSIL FRAGMENTING/KIDNEY STONE 02/2010 Lithotripsy INSERT INTRAUTERINE DEVICE 05/14/2010 mirena , REMOVED IUD REMOVAL 07/06/12 MASTECTOMY HX Left 07/2019 MASTECTOMY, SIMPLE, COMPLETE 06/20/2013 Dr. Garza right breast with sln bx and nipple sparing REVISION OF RECONSTRUCTED BREAST 06/18/14 SOCIAL HISTORY: Social History Tobacco Use Smoking status: Never Smoker Smokeless tobacco: Never Used Vaping Use Vaping Use: Never used Substance Use Topics Alcohol use: Yes Alcohol/week: 7.0 standard drinks Types: 7 Glasses of Wine (5oz) per week Comment: glass of wine Drug use: Never Caffeine intake: Yes - daily Exercise: 30 minutes/5 times a week or more FAMILY HISTORY: Family history of breast cancer: Maternal grandmother - age unknown Family history of ovarian cancer: None Number of sisters: 0 Number of maternal aunts: 1 Number of paternal aunts: 0 Ashkenazi Ancestry: no Has Patient had Genetic Testing? 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 - There is no family history of melanoma, sarcoma or leukemia. Osteoporosis: Yes - unsure Stroke: Yes - unsure Blood Clot: Yes - unsure Heart attack: Yes - unsure Thyroid Nodule or Goiter: None Autism: None FAMILY HISTORY Problem Relation Age of Onset Hypertension Mother Lipids Mother Psychiatry Mother Skin Cancer Mother Lipids Father Prostate Cancer Father 67 Hypertension Father Asthma Brother Allergies Brother Heart Brother Breast Cancer Maternal Grandmother dx 50's Diabetes Maternal Grandmother Breast Cancer Maternal Aunt Mother's half sister. of breast cancer Cancer Maternal Grandfather Cancer Paternal Uncle BRAIN TUMOR Cerebral Embolism Paternal Grandfather Stroke Paternal Grandfather Ovarian cancer No Family History Colon Cancer No Family History other (mitral valve) No Family History MEDICATIONS: tamoxifen (NOLVADEX) 20 mg tablet Take 1 tablet (20 mg) by mouth once daily. losartan (COZAAR) 25 mg tablet Take 25 mg by mouth once daily. OREGANO OIL ORAL Take by mouth. Intermittently for sinus congestion albuterol HFA (PROAIR HFA) 90 mcg/actuation inhaler inhale 1 puff by mouth every 4 hours as needed for wheezing/shortnessof breath. as directed fluticasone (FLONASE) 50 mcg/actuation nasal spray Use 1 [place] in each nostril daily at bedtime. ALLERGIES: ALLERGIES No Known Allergies REVIEW OF SYSTEMS: She denies chest pain, shortness of breath, persistent cough, severe headaches, unusual bony pains, abdominal pain or unintentional weight loss. PHYSICAL EXAM: BP 144/84 (BP Site: Left Arm, BP Position: Sitting, BP Cuff Size: Regular Adult) Pulse 81 Temp 36.8 C (98.3 F) Wt 62.9 kg (138 lb 9.6 oz) LMP 07/24/2021 SpO2 100% BMI 23.06 kg/m General: well-nourished, healthy, female, alert and oriented x 3, calm Skin: warm, dry, skin color, texture, turgor normal Head/Eyes: normocephalic, atraumatic and anicteric Breasts and Regional Lymph Nodes: The patient was examined in the upright and supine positions. There is no concerning supraclavicular, infraclavicular or axillary lymphadenopathy. She is s/p nipple sparing mastectomies/SLNB with implant reconstruction. There are no chest wall nodules or skin changes; there is no evidence of local recurrence bilaterally. The implants are soft and non-encapsulated. There is mild diffuse tenderness at the cusp of the implant on the left chest wall at 10:00, 7-9 cmfn with no palpable abnormalities. Chest - clear Cor - rrr, no m/r/g Abd - soft, no hepatomegaly IMAGING: Deferred. Left US has been ordered for her to schedule at her earliest convenience. I am not able to accommodate same day imaging at . Not applicable - she is s/p bilateral mastectomy. Assessment IMPRESSION/PLAN: Cara Singh is a 46 year old female with a history of Stage 1 right IDC in 2013 and Stage 1 left Invasive mammary carcinoma in 2019 s/p bilateral mastectomies and limited Tamoxifen use, FH of breast cancer, recently diagnosed CHEK2 mutation, and left chest wall pain. She will return for left US to evaluate the chest wall tenderness. She is advised to try OTC Voltaren gel twice daily to area of discomfort. Genetics referral made: No: Reason: 05/2013 she had negative BRCA1/2 testing. 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 Given that she had a bilateral mastectomy, surveillance would not be required. She has a daughter and son that are 9 and 11 years old; thus they wouldn't test until they are adults. Siblings and parents should also get tested (likely from mother's side [place] [facility] [place] She is scheduled for a colonoscopy in 09/2021 and understands it is recommended every 5 years. Chemoprevention discussion: She took Tamoxifen for 2 years then stopped it in 2015 due to intolerance (hot flashes/night sweats, mood change). She then started Tamoxifen again in 07/2019 until early 2020 when she stopped it again due to intolerance. I advised that with ER+ breast cancer, at least 5 years of hormonal therapy is recommended to reduce the risk of recurrence and new primaries. She is not interested in taking any further medication at this time. Given the mastectomies, she has reduced her breast cancer risk up to 95% thus the role of chemoprevention in regards to CHEK2 mutation wouldn't be very significant. The patient is advised to exercise regularly, achieve/maintain ideal body weight, and to limit alcohol consumption to less than 7 drinks weekly for breast cancer risk reduction and overall health. She will be scheduled virtually with Dr. Fink as a new consult for CHEK2. She is advised she should be seen twice annually for clinical exams through 2024 and to schedule with Med/Onc since it has been 2 years. She prefers to have an exam nearby home in fall 2021 since she lives far, but then will return here for an exam in one year 08/2022. She will call me in the interim should she have any questions or concerns. I spent a total of 40 minutes minutes on the date of the service which included preparing to see the patient, [id number] patient care, completing clinical documentation, obtaining and/or reviewing separately obtained history, performing a medically appropriate examination, counseling and educating the patient/family/caregiver and communicating results to the patient/family/caregiver. Marilynn Petersen PA-C Medical Breast Specialist August 20, 2021 CC: Prince Garza [id number] [address] Neena Knox MD [address] [place] [address] documented in this encounter [facility] 05-14-2010 History of Past i llness Narrative Problem Noted Date Resolved Date IUD (intrauterine device) in place 05/14/2010 07/06/2012 Papanicolaou smear of cervix with atypical squamous cells cannot exclude high grade squamous intraepithelial lesion (ASC-H) 06/23/2006 05/07/2010 Overview: ASCUS, +HPV Moderate dysplasia of cervix documented as of this encounter (statuses as of 08/20/2021) [facility] History of Past illness Narrative* Problem Noted Date Resolved Date IUD (intrauterine device) in place 05/14/2010 07/06/2012 Papanicolaou smear of cervix with atypical squamous cells cannot exclude high grade squamous intraepithelial lesion (ASC-H) 06/23/2006 05/07/2010 Overview: ASCUS, +HPV Moderate dysplasia of cervix documented as of this encounter (statuses as of 09/30/2021) [facility] History of Past illness Narrative* Problem Noted Date Resolved Date IUD (intrauterine device) in place 05/14/2010 07/06/2012 Papanicolaou smear of cervix with atypical squamous cells cannot exclude high grade squamous intraepithelial lesion (ASC-H) 06/23/2006 05/07/2010 Overview: ASCUS, +HPV Moderate dysplasia of cervix documented as of this encounter (statuses as of 10/22/2021) [facility] History of Past illness Narrative* Problem Noted Date Resolved Date IUD (intrauterine device) in place 05/14/2010 07/06/2012 Papanicolaou smear of cervix with atypical squamous cells cannot exclude high grade squamous intraepithelial lesion (ASC-H) 06/23/2006 05/07/2010 Overview: ASCUS, +HPV Moderate dysplasia of cervix documented as of this encounter (statuses as of 02/02/2022) [facility] History of Past illness Narrative* Problem Noted Date Resolved Date IUD (intrauterine device) in place 05/14/2010 07/06/2012 Papanicolaou smear of cervix with atypical squamous cells cannot exclude high grade squamous intraepithelial lesion (ASC-H) 06/23/2006 05/07/2010 Overview: ASCUS, +HPV Moderate dysplasia of cervix documented as of this encounter (statuses as of 09/15/2022) [facility] Diagnosis Left-sided chest wall pain- Primary Painful respiration History of bilateral breast cancer History of mastectomy, bilateral S/P bilateral breast implants Breast replaced by other means 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 [facility] Diagnosis Onset Date Resolution Status Encounter for screening for malignant neoplasm of colo n acute [facility] Work Phone: Evaluation note* Diagnosis Onset Date Resolution Status Encounter for routine gynecological examination noneactive [facility] Work Phone: Evaluation note* Diagnosis History of bilateral breast cancer- Primary S/P bilateral breast implants Breast replaced by other means 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 History of mastectomy, bilateral [facility] Diagnosis Onset Date Resolution Status Climacteric acute History of breast cancer [facility] Work Phone: Evaluation note* Diagnosis 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- Primary History of bilateral breast cancer S/P bilateral breast implants Breast replaced by other means S/P bilateral mastectomy Acquired absence of breast and nipple Family history of breast cancer Family history of malignant neoplasm of breast [facility] Diagnosis Preoperative examination- Primary Preoperative examination, unspecified 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, estrogen receptor positive (HCC) Essential hypertension Unspecified essential hypertension Personal history of breast cancer Personal history of malignant neoplasm of breast Pre-operative examination- Primary Preoperative examination, unspecified Malignant neoplasm of upper-outer quadrant of right female breast, unspecified estrogen receptor status (HCC) Essential hypertension Unspecified essential hypertension PONV (postoperative nausea and vomiting) Nausea with vomiting History of bilateral breast cancer- Primary S/P bilateral breast implants Breast replaced by other means 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 Acquired absence of breast and nipple Family history of breast cancer Family history of malignant neoplasm of breast [facility] Diagnosis Preoperative examination- Primary Preoperative examination, unspecified 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, estrogen receptor positive (HCC) Essential hypertension Unspecified essential hypertension Personal history of breast cancer Personal history of malignant neoplasm of breast Pre-operative examination- Primary Preoperative examination, unspecified 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, estrogen receptor positive (HCC) Essential hypertension Unspecified essential hypertension Malignant neoplasm of upper-outer quadrant of right female breast, unspecified estrogen receptor status (HCC) PONV (postoperative nausea and vomiting) Nausea with vomiting Chest wall mass- Primary Swelling, mass, or lump in chest History of bilateral breast cancer S/P bilateral breast implants Breast replaced by other means 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 Acquired absence of breast and nipple Family history of breast cancer Family history of malignant neoplasm of breast [facility] Diagnosis Preoperative examination- Primary Preoperative examination, unspecified 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, estrogen receptor positive (HCC) Essential hypertension Unspecified essential hypertension Personal history of breast cancer Personal history of malignant neoplasm of breast Pre-operative examination- Primary Preoperative examination, unspecified 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, estrogen receptor positive (HCC) Essential hypertension Unspecified essential hypertension Malignant neoplasm of upper-outer quadrant of right female breast, unspecified estrogen receptor status (HCC) PONV (postoperative nausea and vomiting) Nausea with vomiting History of bilateral breast cancer S/P bilateral breast implants Breast replaced by other means 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 Acquired absence of breast and nipple Chest wall mass Swelling, mass, or lump in chest [facility] Diagnosis Preoperative examination- Primary Preoperative examination, unspecified 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, estrogen receptor positive (HCC) Essential hypertension Unspecified essential hypertension Personal history of breast cancer Personal history of malignant neoplasm of breast Pre-operative examination- Primary Preoperative examination, unspecified 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, estrogen receptor positive (HCC) Essential hypertension Unspecified essential hypertension Malignant neoplasm of upper-outer quadrant of right female breast, unspecified estrogen receptor status (HCC) PONV (postoperative nausea and vomiting) Nausea with vomiting Abnormal finding on radiological examination of breast Other (abnormal) findings on radiological examination of breast [facility] Diagnosis Preoperative examination- Primary Preoperative examination, unspecified 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, estrogen receptor positive (HCC) Essential hypertension Unspecified essential hypertension Personal history of breast cancer Personal history of malignant neoplasm of breast Pre-operative examination- Primary Preoperative examination, unspecified 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, estrogen receptor positive (HCC) Essential hypertension Unspecified essential hypertension Malignant neoplasm of upper-outer quadrant of right female breast, unspecified estrogen receptor status (HCC) PONV (postoperative nausea and vomiting) Nausea with vomiting Breast disorder- Primary Unspecified breast disorder documented [facility] Diagnosis Preoperative examination- Primary Preoperative examination, unspecified 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, estrogen receptor positive (HCC) Essential hypertension Unspecified essential hypertension Personal history of breast cancer Personal history of malignant neoplasm of breast Pre-operative examination- Primary Preoperative examination, unspecified 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, estrogen receptor positive (HCC) Essential hypertension Unspecified essential hypertension Malignant neoplasm of upper-outer quadrant of right female breast, unspecified estrogen receptor status (HCC) PONV (postoperative nausea and vomiting) Nausea with vomiting Malignant 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, estrogen receptor positive (HCC)- Primary [facility] Diagnosis Preoperative examination- Primary Preoperative examination, unspecified 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, estrogen receptor positive (HCC) Essential hypertension Unspecified essential hypertension Personal history of breast cancer Personal history of malignant neoplasm of breast Pre-operative examination- Primary Preoperative examination, unspecified 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, estrogen receptor positive (HCC) Essential hypertension Unspecified essential hypertension Malignant neoplasm of upper-outer quadrant of right female breast, unspecified estrogen receptor status (HCC) PONV (postoperative nausea and vomiting) Nausea with vomiting Breast disorder Unspecified breast disorder documented in this encounter [facility] note* Diagnosis Preoperative examination- Primary Preoperative examination, unspecified 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, estrogen receptor positive (HCC) Essential hypertension Unspecified essential hypertension Personal history of breast cancer Personal history of malignant neoplasm of breast Pre-operative examination- Primary Preoperative examination, unspecified 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, estrogen receptor positive (HCC) Essential hypertension Unspecified essential hypertension Malignant neoplasm of upper-outer quadrant of right female breast, unspecified estrogen receptor status (HCC) PONV (postoperative nausea and vomiting) Nausea with vomiting Breast disorder- Primary Unspecified breast disorder documented in this encounter [facility] note* Diagnosis Preoperative examination- Primary Preoperative examination, unspecified 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, estrogen receptor positive (HCC) Essential hypertension Unspecified essential hypertension Personal history of breast cancer Personal history of malignant neoplasm of breast Pre-operative examination- Primary Preoperative examination, unspecified 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, estrogen receptor positive (HCC) Essential hypertension Unspecified essential hypertension Malignant neoplasm of upper-outer quadrant of right female breast, unspecified estrogen receptor status (HCC) PONV (postoperative nausea and vomiting) Nausea with vomiting Recurrent breast cancer, right (HCC)- Primary Personal history of breast cancer Personal history of malignant [facility] Diagnosis Preoperative examination- Primary Preoperative examination, unspecified 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, estrogen receptor positive (HCC) Essential hypertension Unspecified essential hypertension Personal history of breast cancer Personal history of malignant neoplasm of breast Pre-operative examination- Primary Preoperative examination, unspecified 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, estrogen receptor positive (HCC) Essential hypertension Unspecified essential hypertension Malignant neoplasm of upper-outer quadrant of right female breast, unspecified estrogen receptor status (HCC) PONV (postoperative nausea and vomiting) Nausea with vomiting Breast disorder Unspecified breast disorder [facility]* Diagnosis Preoperative examination- Primary Preoperative examination, unspecified 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, estrogen receptor positive (HCC) Essential hypertension Unspecified essential hypertension Personal history of breast cancer Personal history of malignant neoplasm of breast Pre-operative examination- Primary Preoperative examination, unspecified 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, estrogen receptor positive (HCC) Essential hypertension Unspecified essential hypertension Malignant neoplasm of upper-outer quadrant of right female breast, unspecified estrogen receptor status (HCC) PONV (postoperative nausea and vomiting) Nausea with vomiting Recurrent breast cancer, right (HCC) Personal history of breast cancer Personal history of malignant neoplasm of breast documented in this encounter [facility] note* Diagnosis Preoperative examination- Primary Preoperative examination, unspecified 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, estrogen receptor positive (HCC) Essential hypertension Unspecified essential hypertension Personal history of breast cancer Personal history of malignant neoplasm of breast Pre-operative examination- Primary Preoperative examination, unspecified 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, estrogen receptor positive (HCC) Essential hypertension Unspecified essential hypertension Malignant neoplasm of upper-outer quadrant of right female breast, unspecified estrogen receptor status (HCC) PONV (postoperative nausea and vomiting) Nausea with vomiting Recurrent breast cancer, right (HCC) Personal history of breast cancer Personal history of malignant neoplasm of breast documented in this encounter [facility] note* Diagnosis Preoperative examination- Primary Preoperative examination, unspecified 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, estrogen receptor positive (HCC) Essential hypertension Unspecified essential hypertension Personal history of breast cancer Personal history of malignant neoplasm of breast Pre-operative examination- Primary Preoperative examination, unspecified 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, estrogen receptor positive (HCC) Essential hypertension Unspecified essential hypertension Malignant neoplasm of upper-outer quadrant of right female breast, unspecified estrogen receptor status (HCC) PONV (postoperative nausea and vomiting) Nausea with vomiting Recurrent breast cancer, right (HCC)- Primary [facility] Diagnosis Preoperative examination- Primary Preoperative examination, unspecified 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, estrogen receptor positive (HCC) Essential hypertension Unspecified essential hypertension Personal history of breast cancer Personal history of malignant neoplasm of breast Pre-operative examination- Primary Preoperative examination, unspecified 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, estrogen receptor positive (HCC) Essential hypertension Unspecified essential hypertension Malignant neoplasm of upper-outer quadrant of right female breast, unspecified estrogen receptor status (HCC) PONV (postoperative nausea and vomiting) Nausea with vomiting Spondylosis of cervical region without myelopathy or radiculopathy Cervical spondylosis without myelopathy documented [facility]* Diagnosis Preoperative examination- Primary Preoperative examination, unspecified 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, estrogen receptor positive (HCC) Essential hypertension Unspecified essential hypertension Personal history of breast cancer Personal history of malignant neoplasm of breast Pre-operative examination- Primary Preoperative examination, unspecified 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, estrogen receptor positive (HCC) Essential hypertension Unspecified essential hypertension Malignant neoplasm of upper-outer quadrant of right female breast, unspecified estrogen receptor status (HCC) PONV (postoperative nausea and vomiting) Nausea with vomiting Nontoxic single thyroid nodule Nontoxic uninodular goiter documented [facility]* Diagnosis Preoperative examination- Primary Preoperative examination, unspecified 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, estrogen receptor positive (HCC) Essential hypertension Unspecified essential hypertension Personal history of breast cancer Personal history of malignant neoplasm of breast Pre-operative examination- Primary Preoperative examination, unspecified 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, estrogen receptor positive (HCC) Essential hypertension Unspecified essential hypertension Malignant neoplasm of upper-outer quadrant of right female breast, unspecified estrogen receptor status (HCC) PONV (postoperative nausea and vomiting) Nausea with vomiting Malignant 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, estrogen receptor positive (HCC)- Primary Recurrent breast cancer, right (HCC) documented [facility]* Diagnosis Preoperative examination- Primary Preoperative examination, unspecified 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, estrogen receptor positive (HCC) Essential hypertension Unspecified essential hypertension Personal history of breast cancer Personal history of malignant neoplasm of breast Pre-operative examination- Primary Preoperative examination, unspecified 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, estrogen receptor positive (HCC) Essential hypertension Unspecified essential hypertension Malignant neoplasm of upper-outer quadrant of right female breast, unspecified estrogen receptor status (HCC) PONV (postoperative nausea and vomiting) Nausea with vomiting Pre-op evaluation- Primary Preoperative examination, unspecified Essential hypertension Unspecified essential hypertension 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, estrogen receptor positive (HCC) Assessment: s/p left mastectomy 07/2019- no chemo or radiation * Assessment & Plan Note - Walter Rich PA-C - 06/25/2024 8:53 AM EDT Associated Problem(s): Essential hypertension Assessment: compliant with medication, pt plans to reach out to PCP office about recent elevated readings Last BP Last Encounter BP Readings: Date: BP: 06/20/2024 170/92 05/31/2024 172/78 05/04/2024 170/81 09/20/2023 134/80 09/15/2022 145/69 08/20/2021 144/84 documented in this encounter [facility] note* Diagnosis Preoperative examination- Primary Preoperative examination, unspecified 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, estrogen receptor positive (HCC) Essential hypertension Unspecified essential hypertension Personal history of breast cancer Personal history of malignant neoplasm of breast Pre-operative examination- Primary Preoperative examination, unspecified 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, estrogen receptor positive (HCC) Essential hypertension Unspecified essential hypertension Malignant neoplasm of upper-outer quadrant of right female breast, unspecified estrogen receptor status (HCC) PONV (postoperative nausea and vomiting) Nausea with vomiting Pre-op evaluation- Primary Preoperative examination, unspecified Essential hypertension Unspecified essential hypertension 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, 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, estrogen receptor positive (HCC) PONV (postoperative nausea and vomiting) Nausea with vomiting Recurrent breast cancer, right (HCC) Recurrent breast cancer, right (HCC) documented in this encounter [facility] note* Diagnosis Preoperative examination- Primary Preoperative examination, unspecified 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, estrogen receptor positive (HCC) Essential hypertension Unspecified essential hypertension Personal history of breast cancer Personal history of malignant neoplasm of breast Pre-operative examination- Primary Preoperative examination, unspecified 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, estrogen receptor positive (HCC) Essential hypertension Unspecified essential hypertension Malignant neoplasm of upper-outer quadrant of right female breast, unspecified estrogen receptor status (HCC) PONV (postoperative nausea and vomiting) Nausea with vomiting Pre-op evaluation- Primary Preoperative examination, unspecified Essential hypertension Unspecified essential hypertension 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, 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, estrogen receptor positive (HCC) PONV (postoperative nausea and vomiting) Nausea with vomiting Recurrent breast cancer, right (HCC)- Primary Recurrent breast cancer, right (HCC) documented [facility]* Diagnosis Preoperative examination- Primary Preoperative examination, unspecified 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, estrogen receptor positive (HCC) Essential hypertension Unspecified essential hypertension Personal history of breast cancer Personal history of malignant neoplasm of breast Pre-operative examination- Primary Preoperative examination, unspecified 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, estrogen receptor positive (HCC) Essential hypertension Unspecified essential hypertension Malignant neoplasm of upper-outer quadrant of right female breast, unspecified estrogen receptor status (HCC) PONV (postoperative nausea and vomiting) Nausea with vomiting Pre-op evaluation- Primary Preoperative examination, unspecified Essential hypertension Unspecified essential hypertension 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, 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, estrogen receptor positive (HCC) PONV (postoperative nausea and vomiting) Nausea with vomiting Malignant 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, estrogen receptor positive (HCC)- Primary documented in this encounter [facility] note* Diagnosis Preoperative examination- Primary Preoperative examination, unspecified 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, estrogen receptor positive (HCC) Essential hypertension Unspecified essential hypertension Personal history of breast cancer Personal history of malignant neoplasm of breast Pre-operative examination- Primary Preoperative examination, unspecified 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, estrogen receptor positive (HCC) Essential hypertension Unspecified essential hypertension Malignant neoplasm of upper-outer quadrant of right female breast, unspecified estrogen receptor status (HCC) PONV (postoperative nausea and vomiting) Nausea with vomiting Pre-op evaluation- Primary Preoperative examination, unspecified Essential hypertension Unspecified essential hypertension 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, 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, estrogen receptor positive (HCC) PONV (postoperative nausea and vomiting) Nausea with vomiting Recurrent breast cancer, right (HCC)- Primary documented in this encounter [facility] note* Diagnosis Preoperative examination- Primary Preoperative examination, unspecified 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, estrogen receptor positive (HCC) Essential hypertension Unspecified essential hypertension Personal history of breast cancer Personal history of malignant neoplasm of breast Pre-operative examination- Primary Preoperative examination, unspecified 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, estrogen receptor positive (HCC) Essential hypertension Unspecified essential hypertension Malignant neoplasm of upper-outer quadrant of right female breast, unspecified estrogen receptor status (HCC) PONV (postoperative nausea and vomiting) Nausea with vomiting Pre-op evaluation- Primary Preoperative examination, unspecified Essential hypertension Unspecified essential hypertension 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, 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, estrogen receptor positive (HCC) PONV (postoperative nausea and vomiting) Nausea with vomiting Malignant 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, estrogen receptor positive (HCC)- Primary documented in this encounter [facility] note* Diagnosis Preoperative examination- Primary Preoperative examination, unspecified 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, estrogen receptor positive (HCC) Essential hypertension Unspecified essential hypertension Personal history of breast cancer Personal history of malignant neoplasm of breast Pre-operative examination- Primary Preoperative examination, unspecified 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, estrogen receptor positive (HCC) Essential hypertension Unspecified essential hypertension Malignant neoplasm of upper-outer quadrant of right female breast, unspecified estrogen receptor status (HCC) PONV (postoperative nausea and vomiting) Nausea with vomiting Pre-op evaluation- Primary Preoperative examination, unspecified Essential hypertension Unspecified essential hypertension 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, 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, estrogen receptor positive (HCC) PONV (postoperative nausea and vomiting) Nausea with vomiting Malignant 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, estrogen receptor positive (HCC)- Primary documented [facility]* Diagnosis Preoperative examination- Primary Preoperative examination, unspecified 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, estrogen receptor positive (HCC) Essential hypertension Unspecified essential hypertension Personal history of breast cancer Personal history of malignant neoplasm of breast Pre-operative examination- Primary Preoperative examination, unspecified 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, estrogen receptor positive (HCC) Essential hypertension Unspecified essential hypertension Malignant neoplasm of upper-outer quadrant of right female breast, unspecified estrogen receptor status (HCC) PONV (postoperative nausea and vomiting) Nausea with vomiting Pre-op evaluation- Primary Preoperative examination, unspecified Essential hypertension Unspecified essential hypertension 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, 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, estrogen receptor positive (HCC) PONV (postoperative nausea and vomiting) Nausea with vomiting Malignant 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, estrogen receptor positive (HCC)- Primary documented in this encounter [facility] note* Diagnosis Preoperative examination- Primary Preoperative examination, unspecified 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, estrogen receptor positive (HCC) Essential hypertension Unspecified essential hypertension Personal history of breast cancer Personal history of malignant neoplasm of breast Pre-operative examination- Primary Preoperative examination, unspecified 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, estrogen receptor positive (HCC) Essential hypertension Unspecified essential hypertension Malignant neoplasm of upper-outer quadrant of right female breast, unspecified estrogen receptor status (HCC) PONV (postoperative nausea and vomiting) Nausea with vomiting Pre-op evaluation- Primary Preoperative examination, unspecified Essential hypertension Unspecified essential hypertension 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, 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, estrogen receptor positive (HCC) PONV (postoperative nausea and vomiting) Nausea with vomiting Malignant 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, estrogen receptor positive (HCC)- Primary documented in this encounter [facility] note* Diagnosis Preoperative examination- Primary Preoperative examination, unspecified 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, estrogen receptor positive (HCC) Essential hypertension Unspecified essential hypertension Personal history of breast cancer Personal history of malignant neoplasm of breast Pre-operative examination- Primary Preoperative examination, unspecified 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, estrogen receptor positive (HCC) Essential hypertension Unspecified essential hypertension Malignant neoplasm of upper-outer quadrant of right female breast, unspecified estrogen receptor status (HCC) PONV (postoperative nausea and vomiting) Nausea with vomiting Pre-op evaluation- Primary Preoperative examination, unspecified Essential hypertension Unspecified essential hypertension 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, 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, estrogen receptor positive (HCC) PONV (postoperative nausea and vomiting) Nausea with vomiting Malignant 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, estrogen receptor positive (HCC)- Primary documented in this encounter [facility] note* Diagnosis Preoperative examination- Primary Preoperative examination, unspecified 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, estrogen receptor positive (HCC) Essential hypertension Unspecified essential hypertension Personal history of breast cancer Personal history of malignant neoplasm of breast Pre-operative examination- Primary Preoperative examination, unspecified 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, estrogen receptor positive (HCC) Essential hypertension Unspecified essential hypertension Malignant neoplasm of upper-outer quadrant of right female breast, unspecified estrogen receptor status (HCC) PONV (postoperative nausea and vomiting) Nausea with vomiting Pre-op evaluation- Primary Preoperative examination, unspecified Essential hypertension Unspecified essential hypertension 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, 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, estrogen receptor positive (HCC) PONV (postoperative nausea and vomiting) Nausea with vomiting Left upper quadrant abdominal pain- Primary documented in this encounter [facility] note* Diagnosis Preoperative examination- Primary Preoperative examination, unspecified 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, estrogen receptor positive (HCC) Essential hypertension Unspecified essential hypertension Personal history of breast cancer Personal history of malignant neoplasm of breast Pre-operative examination- Primary Preoperative examination, unspecified 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, estrogen receptor positive (HCC) Essential hypertension Unspecified essential hypertension Malignant neoplasm of upper-outer quadrant of right female breast, unspecified estrogen receptor status (HCC) PONV (postoperative nausea and vomiting) Nausea with vomiting Pre-op evaluation- Primary Preoperative examination, unspecified Essential hypertension Unspecified essential hypertension 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, 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, estrogen receptor positive (HCC) PONV (postoperative nausea and vomiting) Nausea with vomiting Malignant 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, estrogen receptor positive (HCC)- Primary documented in this encounter [facility] noteNo assessment information availableWOhio[facility] Work Phone: Evaluation note* Diagnosis Preoperative examination- Primary Preoperative examination, unspecified 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, estrogen receptor positive (HCC) Essential hypertension Unspecified essential hypertension Personal history of breast cancer Personal history of malignant neoplasm of breast Pre-operative examination- Primary Preoperative examination, unspecified 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, estrogen receptor positive (HCC) Essential hypertension Unspecified essential hypertension Malignant neoplasm of upper-outer quadrant of right female breast, unspecified estrogen receptor status (HCC) PONV (postoperative nausea and vomiting) Nausea with vomiting Pre-op evaluation- Primary Preoperative examination, unspecified Essential hypertension Unspecified essential hypertension 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, 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, estrogen receptor positive (HCC) PONV (postoperative nausea and vomiting) Nausea with vomiting Malignant 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, estrogen receptor positive (HCC)- [facility] Diagnosis Preoperative examination- Primary Preoperative examination, unspecified 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, estrogen receptor positive (HCC) Essential hypertension Unspecified essential hypertension Personal history of breast cancer Personal history of malignant neoplasm of breast Pre-operative examination- Primary Preoperative examination, unspecified 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, estrogen receptor positive (HCC) Essential hypertension Unspecified essential hypertension Malignant neoplasm of upper-outer quadrant of right female breast, unspecified estrogen receptor status (HCC) PONV (postoperative nausea and vomiting) Nausea with vomiting Pre-op evaluation- Primary Preoperative examination, unspecified Essential hypertension Unspecified essential hypertension 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, 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, estrogen receptor positive (HCC) PONV (postoperative nausea and vomiting) Nausea with vomiting Malignant 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, estrogen receptor positive (HCC)- Primary documented in this encounter [facility] for referral (narrative)* Diagnostic Procedure Only (Routine) - Authorized Specialty Diagnoses / Procedures Referred By Contac t Referred To Contact BR IMAGING Diagnoses Left-sided chest wall pain History of bilateral breast cancer History of mastectomy, bilateral Procedures US BREAST LTD LT US BREAST UNI REAL TIME WITH IMAGE LIMITED Marilynn Petersen PA-C [address] [place] [address] [facility] [address] [place] [address] Referral ID Status Reason Start Date Expiration Date Visits Requested Visits Authorized [id number] Authorized Auto-Generat ed Referral 08/20/2021 09/19/2022 1 1 [facility] for referral (narrative)* Diagnostic Procedure Only (Routine) - Authorized Specialty Diagnoses / Procedures Referred By Contac t Referred To Contact BR IMAGING Diagnoses History of bilateral breast cancer S/P bilateral breast implants 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 Chest wall mass Procedures US BREAST LTD RIGHT US BREAST UNI REAL TIME WITH IMAGE LIMITED Radha Christianson PA-C [address] [place] [address] [facility] [address] [place] [address] Referral ID Status Reason Start Date Expiration Date Visits Requested Visits Authorized [id number] Authorized Auto-Generat ed Referral 05/04/2024 06/03/2025 1 1 [facility] for referral (narrative)* Diagnostic Procedure Only (Routine) - Closed Specialty Diagnoses / Procedures Referred By Contac t Referred To Contact BR IMAGING Diagnoses History of bilateral breast cancer S/P bilateral breast implants 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 Chest wall mass Procedures US BREAST LTD RIGHT US BREAST UNI REAL TIME WITH IMAGE LIMITED Radha Christianson PA-C [address] [place] [address] [facility] [address] [place] [address] Referral ID Status Reason Start Date Expiration Date V isits Requested Visits Authorized [id number] Closed Auto-Generate d Referral 05/04/2024 06/03/2025 1 1 [facility] for referral (narrative)* Diagnostic Procedure Only (Routine) - Closed Specialty Diagnoses / Procedures Referred By Contac t Referred To Contact BR IMAGING Diagnoses Abnormal finding on radiological examination of breast Procedures US BIOPSY BREAST RIGHT BX BREAST W/DEVICE 1ST LESION ULTRASOUND GUID Kenton, Philipp Chance MD [address] [place] [address] [facility] [address] [place] [address] Referral ID Status Reason Start Date Expiration Date V isits Requested Visits Authorized [id number] Closed Auto-Generate d Referral 05/14/2024 06/13/2025 1 1 [facility] for referral (narrative)No reason for referral information availableWOhioHealth [facility] Work Phone: [facility] Narrative* Diagnostic Procedure Only (Routine) - Closed Specialty Diagnoses / Procedures Referred By Contac t Referred To Contact BR IMAGING Diagnoses History of bilateral breast cancer S/P bilateral breast implants 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 Chest wall mass Procedures US BREAST LTD RIGHT US BREAST UNI REAL TIME WITH IMAGE LIMITED Radha Christianson PA-C [address] [place] [id number] [facility] [address] [place] [id number] Referral ID Status Reason Start Date Expiration Date V isits Requested Visits Authorized [id number] Closed Auto-Generate d Referral 05/04/2024 06/03/2025 1 1 [facility] for visit Narrative* Diagnostic Procedure Only (Routine) - Closed Specialty Diagnoses / Procedures Referred By Contac t Referred To Contact BR IMAGING Diagnoses Abnormal finding on radiological examination of breast Procedures US BIOPSY BREAST RIGHT BX BREAST W/DEVICE 1ST LESION ULTRASOUND GUID Kenton, Philipp Chance MD [address] [id number] [facility] [address] [place] [phone] Referral ID Status Reason Start Date Expiration Date V isits Requested Visits Authorized [id number] Closed Auto-Generate d Referral 05/14/2024 06/13/2025 1 1 [facility] for visit Narrative* MRI/CT (Routine) - Closed Specialty Diagnoses / Procedures Referred By Contac t Referred To Contact MR IMAGING Diagnoses Breast disorder Procedures MRI BREAST WO/W IVCON BILATERAL MRI BREAST WITHOUT&WITH CONTRAST W/CAD BILATERAL Gumucio, Estefany, 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 [address] [place] [address] Phone: tel: fax: [facility] [place] [address] Referral ID Status Reason Start Date Expiration Date V isits Requested Visits Authorized [id number] Closed Auto-Generate d Referral 06/01/2024 07/16/2024 1 1 [facility] for visit Narrative* Diagnostic Procedure Only (Routine) - Closed Specialty Diagnoses / Procedures Referred By Shruti navarrete Referred To Contact BR IMAGING Diagnoses Breast disorder Procedures US BREAST LTD RIGHT US BREAST UNI REAL TIME WITH IMAGE LIMITED Ariana Schmid MD [address] [facility] [address] [place] [address] Phone: tel: fax: [facility] [address] [place] [address] Referral ID Status Reason Start Date Expiration Date V isits Requested Visits Authorized [id number] Closed Auto-Generate d Referral 06/05/2024 07/05/2025 1 1 [facility] for visit Narrative* Diagnostic Procedure Only (Routine) - Closed Specialty Diagnoses / Procedures Referred By Shruti navarrete Referred To Contact MOLECULAR & FUNCTIONAL IMAGING Diagnoses Recurrent breast cancer, right (HCC) Personal history of breast cancer Procedures NM BONE WHOLE BODY BONE &/JOINT IMAGING WHOLE BODY Adam Corona DO [address] [place] [address] Phone: tel: fax: Molecular Imaging [address] [place] [address] Phone: tel: Referral ID Status Reason Start Date Expiration Date V isits Requested Visits Authorized [id number] Closed Auto-Generate d Referral 06/07/2024 04/17/2025 2 2 [facility] for visit Narrative* MRI/CT (Routine) - Closed Specialty Diagnoses / Procedures Referred By Shruti navarrete Referred To Contact CT IMAGING Diagnoses Recurrent breast cancer, right (HCC) Personal history of breast cancer Procedures CT CHEST W IVCON DIAGNOSTIC COMPUTED TOMOGRAPHY THORAX W/CONTRAST Adam Corona DO [address] [place] [address] Phone: tel: fax: [facility] [place] [address] Referral ID Status Reason Start Date Expiration Date V isits Requested Visits Authorized [id number] Closed Auto-Generate d Referral 06/07/2024 07/07/2025 1 1 [facility] for visit Narrative* MRI/CT (Routine) - Closed Specialty Diagnoses / Procedures Referred By Shruti t Referred To Contact CT IMAGING Diagnoses Recurrent breast cancer, right (HCC) Personal history of breast cancer Procedures CT CHEST W IVCON DIAGNOSTIC COMPUTED TOMOGRAPHY THORAX W/CONTRAST Adam Corona, DO [address] [place] [address] Phone: tel: fax: [facility] [place] [address] Referral ID Status Reason Start Date Expiration Date V isits Requested Visits Authorized [id number] Closed Auto-Generate d Referral 06/07/2024 07/07/2025 1 1 [facility] for visit Narrative* Diagnostic Procedure Only (Routine) - Closed Specialty Diagnoses / Procedures Referred By Shruti t Referred To Contact MOLECULAR & FUNCTIONAL IMAGING Diagnoses Recurrent breast cancer, right (HCC) Personal history of breast cancer Procedures NM BONE WHOLE BODY BONE &/JOINT IMAGING WHOLE BODY Adam Corona, DO [address] [place] [address] Phone: tel: fax: Molecular Imaging [address] [place] [address] Phone: tel: Referral ID Status Reason Start Date Expiration Date V isits Requested Visits Authorized [id number] Closed Auto-Generate d Referral 06/07/2024 04/17/2025 2 2 [facility] for visit Narrative* Diagnostic Procedure Only (Routine) - Closed Specialty Diagnoses / Procedures Referred By Shruti t Referred To Contact XR IMAGING Diagnoses Spondylosis of cervical region without myelopathy or radiculopathy Procedures XR CERV OTHER 4V AP/LAT/OBL RADEX SPINE CERVICAL 4 OR 5 VIEWS Jay Faust, DO [address] [place] [address] Phone: tel: fax: [place] [address] Referral ID Status Reason Start Date Expiration Date V isits Requested Visits Authorized [id number] Closed Auto-Generate d Referral 06/19/2024 07/19/2025 1 1 [facility] for visit Narrative* Diagnostic Procedure Only (Routine) - Closed Specialty Diagnoses / Procedures Referred By Contac t Referred To Contact US IMAGING Diagnoses Nontoxic single thyroid nodule Procedures US THYROID/PARATHYROID US SOFT TISSUE HEAD & NECK REAL TIME IMGE Jay Bush, DO [address] [place] [address] Phone: tel: fax: [place] [address] Referral ID Status Reason Start Date Expiration Date V isits Requested Visits Authorized [id number] Closed Auto-Generate d Referral 06/19/2024 07/19/2025 1 1 [facility] for visit Narrative* Consult, Test, Treat (Routine) - Closed Specialty Diagnoses / Procedures Referred By Contac t Referred To Contact Diagnoses Recurrent breast cancer, right (HCC) Procedures CONSULT TO MEDICAL GENETICS - CANCER MEDICAL GENETICS COUNSELING EACH 30 MINUTES Adam Corona DO [address] [place] [address] Phone: tel: fax: Genetic [facility] [address] [place] [address] Referral ID Status Reason Start Date Expiration Date V isits Requested Visits Authorized [id number] Closed PCP Requested Referral Auto-Generated Referral 06/14/2024 06/14/2025 1 1 [facility] Summary Purpose Family History Relationship Condition Age at Onset Recorded Date/T henrik grandmother Malignant neoplasm of breast Unknown Hypertension Unknown father Malignant neoplasm Unknown Advance Directives Documents on File Type Date Recorded 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 Advance Directive(s) Advance Directive(s) 11/09/2019 10:43 AM Advance Directive(s) 07/19/2019 7:07 AM Advance Directive(s) 07/10/2019 9:33 AM Documents on File Type Date Recorded 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 Advance Directive(s) Advance Directive(s) 11/09/2019 10:43 AM Advance Directive(s) 07/19/2019 7:07 AM Advance Directive(s) 07/10/2019 9:33 AM Advance Directive Response Recorded Date/ Time Living Will No October 01, 2021 11:50am Power of Machine Driller No October 01 11:50am Documents on File Type Date Recorded 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 No August 16, 2024 11:31am Chief Complaint and Reason for Visit Chief Complaint Annual (CV RN) Reason for Visit Encounter for routin e gynecological examination Chief Complaint SINUSITIS Annual (CV RN) Reason for Visit Climacteric History of breast cancer Chief Complaint Admit Date CHEST PAIN August 16, 2024 11:01a m Chief Complaint Admit Date CHEST PAIN August 16, 2024 11:01a m Surgical Consult BS/due to breast cancer September 26, 2024 12:54pm Reason for Referral Specialty Diagnoses / Procedures Referred By Contac t Referred To Contact MR IMAGING Diagnoses History of bilateral breast cancer S/P bilateral breast implants 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 Family history of breast cancer Procedures MRI BREAST WO/W IVCON BILATERAL MRI BREAST WITHOUT&WITH CONTRAST W/CAD BILATERAL Marilynn Petersen PA-C [address] [place] [id number] [facility] [place] [address] Referral ID Status Reason Start Date Expiration Date Visits Requested Visits Authorized [id number] New Request Auto-Generat ed Referral 12/29/2023 01/27/2025 1 1 Specialty Diagnoses / Procedures Referred By Contac t Referred To Contact MR IMAGING Diagnoses Breast disorder Procedures MRI BREAST WO/W IVCON BILATERAL MRI BREAST WITHOUT&WITH CONTRAST W/CAD BILATERAL 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, 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 [address] [place] [phone] [facility] [place] [address] Referral ID Status Reason Start Date Expiration Date Visits Requested Visits Authorized [id number] New Request Auto-Generat ed Referral 05/23/2024 06/22/2025 1 1 Additional Source Comments INFORMATION SOURCE (unrecogn ized section and content) DATE CREATED AUTHOR 07/02/2019 [facility] DATE CREATED AUTHOR AUTHOR'S ORGANIZ ATION 07/09/2019 [facility] DATE CREATED AUTHOR AUTHOR'S ORGANIZ ATION 11/13/2019 [facility] DATE CREATED AUTHOR AUTHOR'S ORGANIZ ATION 06/25/2021 [facility] DATE CREATED AUTHOR AUTHOR'S ORGANIZ ATION 06/05/2024 [facility] DATE CREATED AUTHOR AUTHOR'S ORGANIZ ATION 08/04/2024 [facility] DATE CREATED AUTHOR AUTHOR'S ORGANIZ ATION 09/19/2024 [facility] DATE CREATED AUTHOR AUTHOR'S ORGANIZ ATION 09/21/2024 [facility] DATE CREATED AUTHOR AUTHOR'S ORGANIZ ATION 10/01/2024 [facility] Source Comments (unrecognize d section and content) In the event this informatio n is protected by the Federal Confidentiality of Alcohol and Drug Abuse Patient Records regulations: The Federal rules restrict any use of the information to criminally investigate or prosecute any alcohol or drug abuse patient.[facility] System[facility] the event this information is protected by the Federal Confidentiality of Alcohol and Drug Abuse Patient Records regulations: The Federal rules restrict any use of the information to criminally investigate or prosecute any alcohol or drug abuse patient.[facility] SystemIn the event this information is protected by the Federal Confidentiality of Alcohol and Drug Abuse Patient Records regulations: The Federal rules restrict any use of the information to criminally investigate or prosecute any alcohol or drug abuse patient.[facility] SystemIn the event this information is protected by the Federal Confidentiality of Alcohol and Drug Abuse Patient Records regulations: The Federal rules restrict any use of the information to criminally investigate or prosecute any alcohol or drug abuse patient.[facility] SystemIn the event this information is protected by the Federal Confidentiality of Alcohol and Drug Abuse Patient Records regulations: The Federal rules restrict any use of the information to criminally investigate or prosecute any alcohol or drug abuse patient.[facility] SystemIn the event this information is protected by the Federal Confidentiality of Alcohol and Drug Abuse Patient Records regulations: The Federal rules restrict any use of the information to criminally investigate or prosecute any alcohol or drug abuse patient.[facility] System[facility] the event this information is protected by the Federal Confidentiality of Alcohol and Drug Abuse Patient Records regulations: The Federal rules restrict any use of the information to criminally investigate or prosecute any alcohol or drug abuse patient.[facility] SystemIn the event this information is protected by the Federal Confidentiality of Alcohol and Drug Abuse Patient Records regulations: The Federal rules restrict any use of the information to criminally investigate or prosecute any alcohol or drug abuse patient.[facility] SystemIn the event this information is protected by the Federal Confidentiality of Alcohol and Drug Abuse Patient Records regulations: The Federal rules restrict any use of the information to criminally investigate or prosecute any alcohol or drug abuse patient.[facility] SystemIn the event this information is protected by the Federal Confidentiality of Alcohol and Drug Abuse Patient Records regulations: The Federal rules restrict any use of the information to criminally investigate or prosecute any alcohol or drug abuse patient.[facility] SystemIn the event this information is protected by the Federal Confidentiality of Alcohol and Drug Abuse Patient Records regulations: The Federal rules restrict any use of the information to criminally investigate or prosecute any alcohol or drug abuse patient.[facility] System[facility] the event this information is protected by the Federal Confidentiality of Alcohol and Drug Abuse Patient Records regulations: The Federal rules restrict any use of the information to criminally investigate or prosecute any alcohol or drug abuse patient.[facility] System[facility] the event this information is protected by the Federal Confidentiality of Alcohol and Drug Abuse Patient Records regulations: The Federal rules restrict any use of the information to criminally investigate or prosecute any alcohol or drug abuse patient.[facility] SystemIn the event this information is protected by the Federal Confidentiality of Alcohol and Drug Abuse Patient Records regulations: The Federal rules restrict any use of the information to criminally investigate or prosecute any alcohol or drug abuse patient.[facility] SystemIn the event this information is protected by the Federal Confidentiality of Alcohol and Drug Abuse Patient Records regulations: The Federal rules restrict any use of the information to criminally investigate or prosecute any alcohol or drug abuse patient.[facility] SystemIn the event this information is protected by the Federal Confidentiality of Alcohol and Drug Abuse Patient Records regulations: The Federal rules restrict any use of the information to criminally investigate or prosecute any alcohol or drug abuse patient.[facility] SystemIn the event this information is protected by the Federal Confidentiality of Alcohol and Drug Abuse Patient Records regulations: The Federal rules restrict any use of the information to criminally investigate or prosecute any alcohol or drug abuse patient.[facility] SystemIn the event this information is protected by the Federal Confidentiality of Alcohol and Drug Abuse Patient Records regulations: The Federal rules restrict any use of the information to criminally investigate or prosecute any alcohol or drug abuse patient.[facility] SystemIn the event this information is protected by the Federal Confidentiality of Alcohol and Drug Abuse Patient Records regulations: The Federal rules restrict any use of the information to criminally investigate or prosecute any alcohol or drug abuse patient.[facility] SystemIn the event this information is protected by the Federal Confidentiality of Alcohol and Drug Abuse Patient Records regulations: The Federal rules restrict any use of the information to criminally investigate or prosecute any alcohol or drug abuse patient.[facility] SystemIn the event this information is protected by the Federal Confidentiality of Alcohol and Drug Abuse Patient Records regulations: The Federal rules restrict any use of the information to criminally investigate or prosecute any alcohol or drug abuse patient.[facility] SystemIn the event this information is protected by the Federal Confidentiality of Alcohol and Drug Abuse Patient Records regulations: The Federal rules restrict any use of the information to criminally investigate or prosecute any alcohol or drug abuse patient.[facility] SystemIn the event this information is protected by the Federal Confidentiality of Alcohol and Drug Abuse Patient Records regulations: The Federal rules restrict any use of the information to criminally investigate or prosecute any alcohol or drug abuse patient.[facility] SystemIn the event this information is protected by the Federal Confidentiality of Alcohol and Drug Abuse Patient Records regulations: The Federal rules restrict any use of the information to criminally investigate or prosecute any alcohol or drug abuse patient.[facility] SystemIn the event this information is protected by the Federal Confidentiality of Alcohol and Drug Abuse Patient Records regulations: The Federal rules restrict any use of the information to criminally investigate or prosecute any alcohol or drug abuse patient.[facility] SystemIn the event this information is protected by the Federal Confidentiality of Alcohol and Drug Abuse Patient Records regulations: The Federal rules restrict any use of the information to criminally investigate or prosecute any alcohol or drug abuse patient.[facility] SystemIn the event this information is protected by the Federal Confidentiality of Alcohol and Drug Abuse Patient Records regulations: The Federal rules restrict any use of the information to criminally investigate or prosecute any alcohol or drug abuse patient.[facility] SystemIn the event this information is protected by the Federal Confidentiality of Alcohol and Drug Abuse Patient Records regulations: The Federal rules restrict any use of the information to criminally investigate or prosecute any alcohol or drug abuse patient.[facility] SystemIn the event this information is protected by the Federal Confidentiality of Alcohol and Drug Abuse Patient Records regulations: The Federal rules restrict any use of the information to criminally investigate or prosecute any alcohol or drug abuse patient.[facility] SystemIn the event this information is protected by the Federal Confidentiality of Alcohol and Drug Abuse Patient Records regulations: The Federal rules restrict any use of the information to criminally investigate or prosecute any alcohol or drug abuse patient.[facility] SystemIn the event this information is protected by the Federal Confidentiality of Alcohol and Drug Abuse Patient Records regulations: The Federal rules restrict any use of the information to criminally investigate or prosecute any alcohol or drug abuse patient.[facility] SystemIn the event this information is protected by the Federal Confidentiality of Alcohol and Drug Abuse Patient Records regulations: The Federal rules restrict any use of the information to criminally investigate or prosecute any alcohol or drug abuse patient.[facility] SystemIn the event this information is protected by the Federal Confidentiality of Alcohol and Drug Abuse Patient Records regulations: The Federal rules restrict any use of the information to criminally investigate or prosecute any alcohol or drug abuse patient.[facility] SystemIn the event this information is protected by the Federal Confidentiality of Alcohol and Drug Abuse Patient Records regulations: The Federal rules restrict any use of the information to criminally investigate or prosecute any alcohol or drug abuse patient.[facility] SystemIn the event this information is protected by the Federal Confidentiality of Alcohol and Drug Abuse Patient Records regulations: The Federal rules restrict any use of the information to criminally investigate or prosecute any alcohol or drug abuse patient.[facility] SystemIn the event this information is protected by the Federal Confidentiality of Alcohol and Drug Abuse Patient Records regulations: The Federal rules restrict any use of the information to criminally investigate or prosecute any alcohol or drug abuse patient.[facility] SystemIn the event this information is protected by the Federal Confidentiality of Alcohol and Drug Abuse Patient Records regulations: The Federal rules restrict any use of the information to criminally investigate or prosecute any alcohol or drug abuse patient.[facility] SystemIn the event this information is protected by the Federal Confidentiality of Alcohol and Drug Abuse Patient Records regulations: The Federal rules restrict any use of the information to criminally investigate or prosecute any alcohol or drug abuse patient.[facility] SystemIn the event this information is protected by the Federal Confidentiality of Alcohol and Drug Abuse Patient Records regulations: The Federal rules restrict any use of the information to criminally investigate or prosecute any alcohol or drug abuse patient.[facility] SystemIn the event this information is protected by the Federal Confidentiality of Alcohol and Drug Abuse Patient Records regulations: The Federal rules restrict any use of the information to criminally investigate or prosecute any alcohol or drug abuse patient.[facility] SystemIn the event this information is protected by the Federal Confidentiality of Alcohol and Drug Abuse Patient Records regulations: The Federal rules restrict any use of the information to criminally investigate or prosecute any alcohol or drug abuse patient.[facility] SystemIn the event this information is protected by the Federal Confidentiality of Alcohol and Drug Abuse Patient Records regulations: The Federal rules restrict any use of the information to criminally investigate or prosecute any alcohol or drug abuse patient.[facility] SystemIn the event this information is protected by the Federal Confidentiality of Alcohol and Drug Abuse Patient Records regulations: The Federal rules restrict any use of the information to criminally investigate or prosecute any alcohol or drug abuse patient.[facility] SystemIn the event this information is protected by the Federal Confidentiality of Alcohol and Drug Abuse Patient Records regulations: The Federal rules restrict any use of the information to criminally investigate or prosecute any alcohol or drug abuse patient.[facility] SystemIn the event this information is protected by the Federal Confidentiality of Alcohol and Drug Abuse Patient Records regulations: The Federal rules restrict any use of the information to criminally investigate or prosecute any alcohol or drug abuse patient.[facility] SystemIn the event this information is protected by the Federal Confidentiality of Alcohol and Drug Abuse Patient Records regulations: The Federal rules restrict any use of the information to criminally investigate or prosecute any alcohol or drug abuse patient.[facility] SystemIn the event this information is protected by the Federal Confidentiality of Alcohol and Drug Abuse Patient Records regulations: The Federal rules restrict any use of the information to criminally investigate or prosecute any alcohol or drug abuse patient.[facility] SystemIn the event this information is protected by the Federal Confidentiality of Alcohol and Drug Abuse Patient Records regulations: The Federal rules restrict any use of the information to criminally investigate or prosecute any alcohol or drug abuse patient.[facility] SystemIn the event this information is protected by the Federal Confidentiality of Alcohol and Drug Abuse Patient Records regulations: The Federal rules restrict any use of the information to criminally investigate or prosecute any alcohol or drug abuse patient.[facility] SystemIn the event this information is protected by the Federal Confidentiality of Alcohol and Drug Abuse Patient Records regulations: The Federal rules restrict any use of the information to criminally investigate or prosecute any alcohol or drug abuse patient.[facility] SystemIn the event this information is protected by the Federal Confidentiality of Alcohol and Drug Abuse Patient Records regulations: The Federal rules restrict any use of the information to criminally investigate or prosecute any alcohol or drug abuse patient.[facility] SystemIn the event this information is protected by the Federal Confidentiality of Alcohol and Drug Abuse Patient Records regulations: The Federal rules restrict any use of the information to criminally investigate or prosecute any alcohol or drug abuse patient.[facility] SystemIn the event this information is protected by the Federal Confidentiality of Alcohol and Drug Abuse Patient Records regulations: The Federal rules restrict any use of the information to criminally investigate or prosecute any alcohol or drug abuse patient.[facility] SystemIn the event this information is protected by the Federal Confidentiality of Alcohol and Drug Abuse Patient Records regulations: The Federal rules restrict any use of the information to criminally investigate or prosecute any alcohol or drug abuse patient.[facility] SystemIn the event this information is protected by the Federal Confidentiality of Alcohol and Drug Abuse Patient Records regulations: The Federal rules restrict any use of the information to criminally investigate or prosecute any alcohol or drug abuse patient.[facility] SystemIn the event this information is protected by the Federal Confidentiality of Alcohol and Drug Abuse Patient Records regulations: The Federal rules restrict any use of the information to criminally investigate or prosecute any alcohol or drug abuse patient.[facility] SystemIn the event this information is protected by the Federal Confidentiality of Alcohol and Drug Abuse Patient Records regulations: The Federal rules restrict any use of the information to criminally investigate or prosecute any alcohol or drug abuse patient.[facility] SystemIn the event this information is protected by the Federal Confidentiality of Alcohol and Drug Abuse Patient Records regulations: The Federal rules restrict any use of the information to criminally investigate or prosecute any alcohol or drug abuse patient.[facility] SystemIn the event this information is protected by the Federal Confidentiality of Alcohol and Drug Abuse Patient Records regulations: The Federal rules restrict any use of the information to criminally investigate or prosecute any alcohol or drug abuse patient.[facility] SystemIn the event this information is protected by the Federal Confidentiality of Alcohol and Drug Abuse Patient Records regulations: The Federal rules restrict any use of the information to criminally investigate or prosecute any alcohol or drug abuse patient.[facility] SystemIn the event this information is protected by the Federal Confidentiality of Alcohol and Drug Abuse Patient Records regulations: The Federal rules restrict any use of the information to criminally investigate or prosecute any alcohol or drug abuse patient.[facility] Care Teams (unrecognized sec tion and content) Senior Librarian Relationship Specialty Start Date End Date Neena Knox [address] [place] [address] PCP - General Family Practice 07/11/19 Paul Godinez(Historical)MD [address] [place] [address] Referring General Surgery 06/20/19 Senior Librarian Relationship Specialty Start Date End Date Neena Knox [address] [place] [address] PCP - General Family Practice 07/11/19 Paul Godinez(Historical)MD [address] [place] [address] [phone] Referring General Surgery 06/20/19 Senior Librarian Relationship Specialty Start Date End Date Neena Knox [address] [place] [address] PCP - General Family Practice 07/11/19 Paul Godinez(Historical)MD [address] [place] [address] 09019 Referring General Surgery 06/20/19 Senior Librarian Relationship Specialty Start Date End Date Neena Knox [address] [place], [place] [address] PCP - General Family Medicine 07/11/19 Paul Godinez(Historical)MD [address] [place] [address] [phone] Referring General Surgery 06/20/19 Team Status: Active Member Role Status Dates Dr. Neena Knox MD Family Provider Active Dr. Neena Knox MD Primary Care Provider Active Team Status: Inactive Member Role Status Dates Dr. Neena Knox MD Primary Care Provider, Referrin g Provider Active Dr. Ellen Pryor DO Attending Provider Activ e Team Status: Inactive Member Role Status Dates Dr. Neena Knox MD Primary Care Provider Active Dr. Ellen Pryor DO Attending Provider Activ e Team Status: Inactive Member Role Status Dates Dr. Neena Knox MD Primary Care Provider, Attendin g Provider Active Senior Librarian Relationship Specialty Start Date End Date Neena Knox MD [address] [place], [place] [address] PCP - General Family Medicine 07/11/19 Paul Godinez(Historical)MD [address] [place] [address] [phone] Referring General Surgery 06/20/19 Team Status: Inactive Member Role Status Dates Dr. Neena Knox MD Primary Care Provider, Referrin g Provider Active Dr. Martha Andrews MD Attending Provider Active Team Status: Inactive Member Role Status Dates Dr. Neena Knox MD Primary Care Provider Active Dr. Zander Ballesteros MD Attending Provider, Refe rring Provider Active Team Status: Inactive Member Role Status Dates Dr. Neena Knox MD Primary Care Provider Active Dr. Martha Andrews MD Attending Provider, Referr ing Provider Active Senior Librarian Relationship Specialty Start Date End Date Neena Knox MD [address] [place], [place] [address] PCP - General Family Medicine 07/11/19 Paul Godinez(Historical)MD [address] [place] [address] [phone] Referring General Surgery 06/20/19 Senior Librarian Relationship Specialty Start Date End Date Neena Knox MD [address] [place], [place] [address] PCP - General Family Medicine 07/11/19 aPul Godinez(Historical)MD [address] [place] [address] [phone] Referring General Surgery 06/20/19 Senior Librarian Relationship Specialty Start Date End Date Neena Knox MD [address] [place], [place] [address] PCP - General Family Medicine 07/11/19 Paul Godinez(Historical)MD [address] [place] [address] [phone] Referring General Surgery 06/20/19 Senior Librarian Relationship Specialty Start Date End Date Neena Knox MD [address] [place], [place] [address] PCP - General Family Medicine 07/11/19 Paul Godinez(Historical)MD [address] [place] [address] [phone] Referring General Surgery 06/20/19 Senior Librarian Relationship Specialty Start Date End Date Neena Knox MD [address] [place] [address] PCP - General Family Medicine 07/11/19 Paul Godinez(Historical)MD [facility] [place] [address] Referring General Surgery 06/20/19 Senior Librarian Relationship Specialty Start Date End Date Neena Knox MD [address] [place] [address] PCP - General Family Medicine 07/11/19 Paul Godinez(Historical)MD [address] [place] [address] 492[address] Referring General Surgery 06/20/19 Senior Librarian Relationship Specialty Start Date End Date Neena Knox MD [address] [place], [place] [address] PCP - General Family Medicine 07/11/19 Paul Godinez(Historical)MD [facility] [place], [place] 68[address] Referring General Surgery 06/20/19 Senior Librarian Relationship Specialty Start Date End Date Neena Knox MD [address] [place], [place] [address] PCP - General Family Medicine 07/11/19 Paul Godinez(Historical)MD [facility] [place], [place] [phone] Referring General Surgery 06/20/19 Senior Librarian Relationship Specialty Start Date End Date Neena Knox MD [address] [place] [address] PCP - General Family Medicine 07/11/19 Paul Godinez(Historical)MD [address] [place] [address] [phone] Referring General Surgery 06/20/19 Senior Librarian Relationship Specialty Start Date End Date Neena Knox MD [address] [place] [address] PCP - General Family Medicine 07/11/19 Paul Godinez(Historical)MD [address] [place], [place] [phone] Referring General Surgery 06/20/19 Adam Corona DO [address] [place] [address] General Surgery 05/31/24 Radha Christianson PA-C [address] [place] [address] General Surgery 05/31/24 Senior Librarian Relationship Specialty Start Date End Date Neena Knox MD [address] [place] [address] PCP - General Family Medicine 07/11/19 Paul Godinez(Historical)MD [address] [place] [address] [phone] Referring General Surgery 06/20/19 Adam Corona DO [address] [place] [address] General Surgery 05/31/24 Radha Christianson PA-C [address] [place] [address] General Surgery 05/31/24 Senior Librarian Relationship Specialty Start Date End Date Neena Knox MD [address] [place] [address] PCP - General Family Medicine 07/11/19 Paul Godinez(Historical)MD [address] [place] [address] [phone] Referring General Surgery 06/20/19 Adma Corona DO [address] [place] [address] General Surgery 05/31/24 Radha Christianson PA-C [address] [place] [address] General Surgery 05/31/24 Senior Librarian Relationship Specialty Start Date End Date Neena Knox MD [address] [place] [address] PCP - General Family Medicine 07/11/19 Paul Godinez(Historical)MD [address] [place] [address] Referring General Surgery 06/20/19 Adam Corona DO [address] [place] [address] General Surgery 05/31/24 Radha Christianson PA-C [address] [place] [address] General Surgery 05/31/24 Senior Librarian Relationship Specialty Start Date End Date Neena Knox MD [address] [place] [address] PCP - General Family Medicine 07/11/19 Paul Godinez(Historical)MD [address] [place], [place] [phone] Referring General Surgery 06/20/19 Adam Corona DO [address] [place] [address] General Surgery 05/31/24 Radha Christianson PA-C [address] [place] [address] General Surgery 05/31/24 Senior Librarian Relationship Specialty Start Date End Date Neena Knox MD [address] [place] [address] PCP - General Family Medicine 07/11/19 Paul Godinez(Historical)MD [address] [place], [place] [phone] Referring General Surgery 06/20/19 Adma Corona DO [address] [place] [address] General Surgery 05/31/24 Radha Christianson PA-C [address] [place] [address] General Surgery 05/31/24 Senior Librarian Relationship Specialty Start Date End Date Neena Knox MD [address] [place] [address] PCP - General Family Medicine 07/11/19 Paul Godinez(Historical)MD [address] [place] [address] Referring General Surgery 06/20/19 Adam Corona DO [address] [place] [address] General Surgery 05/31/24 Radha Christianson PA-C [address] [place] [address] General Surgery 05/31/24 Senior Librarian Relationship Specialty Start Date End Date Neena Knox MD [address] [place] [address] PCP - General Family Medicine 07/11/19 Paul Godinez(Historical), [address] [place] [address] [phone] Referring General Surgery 06/20/19 Adam Corona DO [address] [place] [address] General Surgery 05/31/24 Radha Christianson PA-C [address] [place] [address] General Surgery 05/31/24 Senior Librarian Relationship Specialty Start Date End Date Neena Knox MD [address] [place] [address] PCP - General Family Medicine 07/11/19 Paul Godinez(Historical)MD [facility] [place], [place] [address] Referring General Surgery 06/20/19 Adam Corona DO [address] [place] [address] General Surgery 05/31/24 Radha Christianson PA-C [address] [place] [address] General Surgery 05/31/24 Jeanna Temple MD [address] [place] [address] Radiation Oncology 06/19/24 Senior Librarian Relationship Specialty Start Date End Date Neena Knox MD [address] [place], [place] [address] PCP - General Family Medicine 07/11/19 Paul Godinez(Historical)MD [address] [place], [place] [phone] Referring General Surgery 06/20/19 Adam Corona DO [address] [place] [address] General Surgery 05/31/24 Radha Christianson PA-C [address] [place] [address] General Surgery 05/31/24 Jeanna Temple MD [address] [place] [address] Radiation Oncology 06/19/24 Senior Librarian Relationship Specialty Start Date End Date Neena Knox MD [address] [place] [address] PCP - General Family Medicine 07/11/19 Paul Godinez(Historical)MD [address] [place] [address] [phone] Referring General Surgery 06/20/19 Adam Corona DO [address] [place] [address] General Surgery 05/31/24 Radha Christianson PA-C [address] [place] [address] General Surgery 05/31/24 Jeanna Temple MD [address] [facility] [address] Radiation Oncology 06/19/24 Senior Librarian Relationship Specialty Start Date End Date Neena Knox MD [address] [place] [address] PCP - General Family Medicine 07/11/19 Paul Godinez(Historical)MD [address] [place] [address] [phone] Referring General Surgery 06/20/19 Adam Corona DO [address] [place] [address] General Surgery 05/31/24 Radha Christianson PA-C [address] [place] [address] General Surgery 05/31/24 Jeanna Temple MD [address] [facility] [address] Radiation Oncology 06/19/24 Senior Librarian Relationship Specialty Start Date End Date Neena Knox MD [address] [place] [address] PCP - General Family Medicine 07/11/19 Paul Godinez(Historical)MD [address] [place] [address] [phone] Referring General Surgery 06/20/19 Adam Corona DO [address] [place] [address] General Surgery 05/31/24 Radha Christianson PA-C [address] [place] [address] General Surgery 05/31/24 Jeanna Temple MD [address] [facility] [address] Radiation Oncology 06/19/24 Senior Librarian Relationship Specialty Start Date End Date Neena Knox MD [address] [place] [address] PCP - General Family Medicine 07/11/19 Paul Godinez(Historical)MD [address] [place] [address] Referring General Surgery 06/20/19 Adam Corona DO [address] [place] [address] General Surgery 05/31/24 Radha Christianson PA-C [address] [place] [address] General Surgery 05/31/24 Jeanna Temple MD [address] [place] [address] Radiation Oncology 06/19/24 Senior Librarian Relationship Specialty Start Date End Date Neena Knox MD [address] [place] [address] PCP - General Family Medicine 07/11/19 Paul Godinez(Historical)MD [address] [place] [address] 51113 Referring General Surgery 06/20/19 Adam Corona DO [address] [place] [address] General Surgery 05/31/24 Radha Christianson PA-C [address] [place] [address] General Surgery 05/31/24 Jeanna Temple MD [address] [place], [place] [phone] Radiation Oncology 06/19/24 Senior Librarian Relationship Specialty Start Date End Date Neena Knox MD [address] [place] [address] PCP - General Family Medicine 07/11/19 Paul Godinez(Historical)MD [address] [place], [place] [phone] Referring General Surgery 06/20/19 Adam Corona DO [address] [place] [address] General Surgery 05/31/24 Radha Christianson PA-C [address] [place] [address] General Surgery 05/31/24 Jeanna Temple MD [address] [place] [address] Radiation Oncology 06/19/24 Senior Librarian Relationship Specialty Start Date End Date Neena Knox MD [address] [place] [address] PCP - General Family Medicine 07/11/19 Paul Godinez(Historical)MD [facility] [place], [place] [phone] Referring General Surgery 06/20/19 Adam Corona DO [address] [place] [address] General Surgery 05/31/24 Radha Christianson PA-C [address] [place] [address] General Surgery 05/31/24 Jeanna Temple MD [address] [place] [address] Radiation Oncology 06/19/24 Senior Librarian Relationship Specialty Start Date End Date Neena Knox MD [address] [place] [address] PCP - General Family Medicine 07/11/19 Paul Godinez(Historical)MD [address] [place] [address] [phone] Referring General Surgery 06/20/19 Adam Corona DO [address] [place] [id number] General Surgery 05/31/24 Radha Christianson PA-C [address] [place] [address] General Surgery 05/31/24 Jeanna Temple MD [address] [place] [address] Radiation Oncology 06/19/24 Senior Librarian Relationship Specialty Start Date End Date Neena Knox MD [address] [place] [address] PCP - General Family Medicine 07/11/19 Paul Godinez(Historical)MD [address] [place] [address] [phone] Referring General Surgery 06/20/19 Adam Corona DO [address] [place] [address] General Surgery 05/31/24 Radha Christianson PA-C [address] [place] [address] General Surgery 05/31/24 Jeanna Temple MD [address] [place] [address] Radiation Oncology 06/19/24 Senior Librarian Relationship Specialty Start Date End Date Neena Knox MD [address] [place] [address] PCP - General Family Medicine 07/11/19 Paul Godinez(Historical)MD [address] [place] [address] [phone] Referring General Surgery 06/20/19 Adam Corona DO [address] [place] [address] General Surgery 05/31/24 Radha Christianson PA-C [address] [place] [address] General Surgery 05/31/24 Jeanna Temple MD [address] [place] [address] Radiation Oncology 06/19/24 Senior Librarian Relationship Specialty Start Date End Date Neena Knox MD [address] [place] [address] PCP - General Family Medicine 07/11/19 Paul Godinez(Historical)MD [address] [place] [address] Referring General Surgery 06/20/19 Adam Corona DO [address] [place] [address] General Surgery 05/31/24 Radha Christianson PA-C [address] [place] [address] General Surgery 05/31/24 Jeanna Temple MD [address] [place], [place] [phone] Radiation Oncology 06/19/24 Senior Librarian Relationship Specialty Start Date End Date Neena Knox MD [address] [place] [address] PCP - General Family Medicine 07/11/19 Paul Godinez(Historical)MD [address] [place] [address] Referring General Surgery 06/20/19 Adam Corona DO [address] [place] [address] General Surgery 05/31/24 Radha Christianson PA-C [address] [place] [address] General Surgery 05/31/24 Jeanna Temple MD [address] [place] [address] Radiation Oncology 06/19/24 Senior Librarian Relationship Specialty Start Date End Date Neena Knox MD [address] [place] [address] PCP - General Family Medicine 07/11/19 Paul Godinez(Historical)MD [address] [place] [address] [phone] Referring General Surgery 06/20/19 Adam Corona DO [address] [place] [address] General Surgery 05/31/24 Radha Christianson PA-C [address] [place] [address] General Surgery 05/31/24 Jeanna Temple MD [address] [place] [address] Radiation Oncology 06/19/24 Senior Librarian Relationship Specialty Start Date End Date Neena Knox MD [address] [place] [address] PCP - General Family Medicine 07/11/19 Paul Godinez(Historical)MD [address] [place] [address] [phone] Referring General Surgery 06/20/19 Adam Corona DO [address] [place] [address] General Surgery 05/31/24 Radha Christianson PA-C [address] [place] [address] General Surgery 05/31/24 Jeanna Temple MD [address] [place] [address] Radiation Oncology 06/19/24 Senior Librarian Relationship Specialty Start Date End Date Neena Knox MD [address] [place] [address] PCP - General Family Medicine 07/11/19 Paul Godinez(Historical)MD [address] [place] [address] [phone] Referring General Surgery 06/20/19 Adam Corona DO [address] [place] [address] General Surgery 05/31/24 Radha Christianson PA-C [address] [place] [address] General Surgery 05/31/24 Jeanna Temple MD [address] [place] [address] Radiation Oncology 06/19/24 Senior Librarian Relationship Specialty Start Date End Date Neena Knox MD [address] [place] [address] PCP - General Family Medicine 07/11/19 Paul Godinez(Historical)MD [address] [place] [phone] Referring General Surgery 06/20/19 Adam Corona DO [address] [place] [address] General Surgery 05/31/24 Radha Christianson PA-C [address] [place] [address] General Surgery 05/31/24 Jeanna Temple MD [address] [place] [address] Radiation Oncology 06/19/24 Senior Librarian Relationship Specialty [place] [address] [place] [address] PCP - General Family Medicine 07/11/19 Paul Godinez(Historical)MD [address] [place] [address] Referring General Surgery 06/20/19 Adam Corona DO [address] [place] [address] General Surgery 05/31/24 Radha Christianson PA-C [address] [place] [address] General Surgery 05/31/24 Jeanna Temple MD [address] [place] [address] Radiation Oncology 06/19/24 Senior Librarian Relationship Specialty Start Date End Date Neena Knox MD [address] [place] [address] PCP - General Family Medicine 07/11/19 Paul Godinez(Historical)MD [address] [place] [address] Referring General Surgery 06/20/19 Adam Corona DO [address] [place] [address] General Surgery 05/31/24 Radha Christianson PA-C [address] [place] [address] General Surgery 05/31/24 Jeanna Temple MD [address] [place] [address] Radiation Oncology 06/19/24 Senior Librarian Relationship Specialty Start Date End Date Neena Knox MD [address] [place] [address] PCP - General Family Medicine 07/11/19 Paul Godinez(Historical)MD [facility] [place] [address] Referring General Surgery 06/20/19 Adam Corona DO [address] [place] [address] General Surgery 05/31/24 Radha Christianson PA-C [address] [place] [address] General Surgery 05/31/24 Jeanna Temple MD [address] [place] [address] Radiation Oncology 06/19/24 Senior Librarian Relationship Specialty Start Date End Date Neena Knox MD [address] [place] [address] PCP - General Family Medicine 07/11/19 Paul Godinez(Historical)MD [address] [place] [address] [phone] Referring General Surgery 06/20/19 Adam Corona DO [address] [place] [address] General Surgery 05/31/24 Radha Christianson PA-C [address] [place] [address] General Surgery 05/31/24 Jeanna Temple MD [address] [facility] [place] [place] [address] Radiation Oncology 06/19/24 Senior Librarian Relationship Specialty Start Date End Date Neena Knox MD [address] [place] [address] PCP - General Family Medicine 07/11/19 Paul Godinez(Historical)MD [address] [place] [address] Referring General Surgery 06/20/19 Adam Corona DO [address] [place] [address] General Surgery 05/31/24 Radha Christianson PA-C [address] [place] [address] General Surgery 05/31/24 Jeanna Temple MD [address] [place] [address] Radiation Oncology 06/19/24 Senior Librarian Relationship Specialty Start Date End Date Neena Knox MD [address] [place] [address] PCP - General Family Medicine 07/11/19 Paul Godinez(Historical)MD [address] [place] [address] Referring General Surgery 06/20/19 Adam Corona DO [address] [place] [address] General Surgery 05/31/24 Radha Christianson PA-C [address] [place] [address] General Surgery 05/31/24 Jeanna Temple MD [address] [place] [address] Radiation Oncology 06/19/24 Senior Librarian Relationship Specialty Start Date End Date Neena Knox MD [address] [place] [address] PCP - General Family Medicine 07/11/19 Paul Godinez(Historical)MD [address] [place], [place] [phone] Referring General Surgery 06/20/19 Adam Corona DO [address] [place] [address] General Surgery 05/31/24 Radha Christianson PA-C [address] [place] [address] General Surgery 05/31/24 Jeanna Temple MD [address] [place], [place] [phone] Radiation Oncology 06/19/24 Senior Librarian Relationship Specialty Start Date End Date Neena Knox MD [address] [place], [place] 148061 PCP - General Family Medicine 07/11/19 Paul Godinez(Historical)MD [address] [place] [address] [phone] Referring General Surgery 06/20/19 Adam Corona DO [address] [place] [address] General Surgery 05/31/24 Radha Christianson PA-C [address] [place] [address] General Surgery 05/31/24 Jeanna Temple MD [address] [place] [place], [place] 9923[address] Radiation Oncology 06/19/24 Senior Librarian Relationship Specialty Start Date End Date Neena Knox MD [address] [facility] [place], [place] [address]86[address] PCP - General Family Medicine 07/11/19 Paul Godinez(Historical)[place] [address] [place] [address] [phone] Referring General Surgery 06/20/19 Adam Corona DO [address] [place], [place] [id number] General Surgery 05/31/24 Radha Christianson PA-C [address] [place], [place] [id number] General Surgery 05/31/24 Jeanna Temple MD [address] [place] [address] Radiation Oncology 06/19/24 Team Status: Active Member Role Status Dates Dr. Neena Knox MD Primary Care Provider Active Team Status: Inactive Member Role Status Dates Dr. Neena Knox MD Primary Care Provider Active Start: August 16, 2024 End: August 16, 2024 Dr. Matthew Bolaños MD Attending Provider Active S tart: August 16, 2024 End: August 16, 2024 Dr. Matthew Bolaños MD Referring Provider Active S tart: August 16, 2024 End: August 16, 2024 Dr. Matthew Bolaños MD Emergency Provider Active S tart: August 16, 2024 End: August 16, 2024 Team Status: Inactive Member Role Status Dates Dr. Neena Knox MD Primary Care Provider Active Start: August 23, 2024 End: August 23, 2024 Dr. Zander Ballesteros MD Attending Provider Activ e Start: August 23, 2024 End: August 23, 2024 Dr. Zander Ballesteros MD Referring Provider Activ e Start: August 23, 2024 End: August 23, 2024 Senior Librarian Relationship Specialty Start Date End Date Neena Knox MD [address] [place] [address] PCP - General Family Medicine 07/11/19 Paul Godinez(Historical)MD [address] [place] [address] [phone] Referring General Surgery 06/20/19 Adam Corona DO [address] [place], [place] [phone] General Surgery 05/31/24 Radha Christianson PA-C [address] [facility] [place] [address] General Surgery 05/31/24 Jeanna Temple MD [address] [place], [place] 4729[address] Radiation Oncology 06/19/24 Senior Librarian Relationship Specialty Start Date End Date Neena Knox MD [address] [place] [address] PCP - General Family Medicine 07/11/19 Paul Godinez(Historical)MD [address] [place] [address] [phone] Referring General Surgery 06/20/19 Adam Corona DO [address] [place] [address] General Surgery 05/31/24 Radha Christianson PA-C [address] [place] [address] General Surgery 05/31/24 Jeanna Temple MD [address] [facility] [place] [phone] Radiation Oncology 06/19/24 Senior Librarian Relationship Specialty Start Date End Date Neena Knox MD [address] [facility] [place], [place] [phone] PCP - General Family Medicine 07/11/19 Paul Godinez(Historical)MD [address] [place] [address] [phone] Referring General Surgery 06/20/19 Adam Corona DO [address] [place] [address] General Surgery 05/31/24 Radha Christianson PA-C [address] [place] [address] General Surgery 05/31/24 Jeanna Temple MD [address] [facility] [place] [phone] Radiation Oncology 06/19/24 Team Status: Inactive Member Role Status Dates Dr. Neena Knox MD Primary Care Provider Active Start: September 26, 2024 End: September 26, 2024 Dr. Neena nKox MD Referring Provider Active Start: September 26, 2024 End: September 26, 2024 Dr. Ellen Vande Velde , DO Attending Provider Activ e Start: September 26, 2024 End: September 26, 2024 Reason for Visit (unrecogniz ed section and content) Reason Comments Appointment Reason Comments Scheduling Reason Comments Patient Update Reason Comments Results Appointment Reason Comments Newly Diagnosed Reason Comments New Patient Reason Comments Breast Problem Reason Comments Breast Cancer Reason Comments Returning Patient's Call Reason Comments Patient Question Reason Comments Breast Cancer Follow Up Reason Comments Consult Reason Comments Results Reason Comments Anesthesia Consult Reason Comments Pre-Op Teaching Reason Comments PreOp Call Reason Onset Date Comments Post Op Call 07/09/2024 Reason Onset Date Comments Results 07/10/2024 Reason Comments Established Patient Follow up Reason Comments Breast Cancer Post Op Reason Comments Patient Education Reason Onset Date Comments Simulation Request Form 07/31/2024 Reason Comments Radiotherapy On-treatment Visit Reason Comments Cough Chest congestion and tightness, sinus congestion x2 weeks Reason Comments Established Patient Goals (unrecognized section and content) Goals may be documented in a n alternate sectionGoals may be documented in an alternate sectionGoals may be documented in an alternate sectionGoals may be documented in an alternate sectionGoals may be documented in an alternate section FOR RECORDS PERTAINING TO PATIENTS WHO ARE OR HAVE BEEN ENROLLED IN A CHEMICAL DEPENDENCY/SUBSTANCEABUSE PROGRAM, SOME INFORMATION MAY BE OMITTED. This clinical summary was aggregated from multiple sources. Caution should be exercised in using it in the provision of clinical care. This summary normalizes information from multiple sources, and as a consequence, information in this document may materially change the coding, format and clinical context of patient data. In addition, data may be omitted in some cases. CLINICAL DECISIONS SHOULD BE BASED ON THE PRIMARY CLINICAL RECORDS. [employer] [facility]. provides no warranty or guarantee of the accuracy or completeness of information in this document.
[2024-10-04] MEDS: Lactated Ringers 500 ML 999 ML IV (06:15)
[2024-10-04 06:19] LABS: Internal QC Validated? YES +Cl - CLEAR BKGD; Pregnancy, Urine Negative Negative
[2024-10-04] MEDS: Lactated Ringers 1,000 ML 999 ML IV (06:47)
--- NOTE | 2024-10-04 06:53 | PRE.ANES_ITS ---
ASA Classification* ASA Classification ASA Classification: 2 (Hx PONV, bilateral mastectomy, VICTORIANO, HTN) Assessment & Plan Anesthesia* Anesthesia Assessment Anesthesia Assessment: Discussed sedation and/or anesthesia options, risks, benefits, and alternatives with patient/parents/legal guardian/POA. Questions invited. The patient/parents/legal guardian/POA seems to understand and agrees to proceed with anesthesia plan. Reviewed the physical assessment, medical history, allergy history and patient home medications list prior to surgery/procedure/anesthetic and documented any changes. Performed airway and anesthesia risk assessments. Anesthesia Type Anesthesia Type: General (TIVA for PONV) History Source History Obtained from:: Patient and Chart Anesthesia Focused Assessment* Temperature: 98.8 F Pulse Rate: 86 Blood Pressure: 148/87 Respiratory Rate: 18 Pulse Ox: 100 Oxygen Delivery Method: Room Air Airway Assessment Mouth opens: >3 cm Mallampati Score: II Teeth Condition: Intact Neck Range of motion (ROM): Full ROM Labs Anesthesia Preop lab: CBC WBC 6.3 K/mm3 (4.4-11.0) 08/16/24 11:40 08/16/24 RBC 3.90 M/mm3 (4.2-5.4) L 08/16/24 11:40 08/16/24 Hgb 11.7 g/dL (12.0-15.0) L 08/16/24 11:40 5 Hct 35.4 % (37-47) L 08/16/24 11:40 08/16/24 Plt Count 240 K/mm3 (150-450) 08/16/24 11:40 08/16/24 CHEMISTRY Potassium 3.9 mmol/L (3.3-5.1) 08/16/24 11:40 08/16/24 Sodium 137 mmol/L (133-145) 08/16/24 11:40 08/16/24 BUN 13 mg/dL (4-19) 08/16/24 11:40 08/16/24 Creatinine 0.62 mg/dL (0.70-1.20) L 08/16/24 11:40 Glucose 92 mg/dL (70-99) 08/16/24 11:40 08/16/24 TSH 1.20 uIU/mL (0.358-3.74) 07/11/23 16:00 COAG Urine Test Negative Negative 10/04/24 06:10 10/04/24 Pre-Assessment Diagnosis/Proposed Procedure Planned Operative Procedure(s): (B) Laparoscopic, Salpingo-oopherectomy Anesthesia History Anesthesia History - assembl[employer]: Anesthesia History - assembl[employer] Hx Hospitalization No 09/28/24 08:39 Any Problems With Anesthesia Yes: povn 09/28/24 08:39 Cholinesterase deficiency No 09/28/24 08:39 You/Your Family Experience No 09/28/24 08:39 fever (hyperthermia) with Relationship Recent Exposure to Contagious No 10/04/24 06:35 Disease Does patient have nerve No 09/28/24 08:39 stimulator Patient instructed to have device shut off --Does patient have Pacemaker No 10/04/24 06:35 or ICD? When Was Last Pacemaker Check QUESTION #4 FULL TEXT: You/Your Family Experience fever (hyperthermia) with Anesthesia Last Oral Intake Last Oral intake: Last Oral Intake NPO since 20:00 10/04/24 06:35 Meds taken in AM with sips of No 10/04/24 06:35 water? 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 Has anyone observed you stop Yes 09/28/24 08:39 breathing during sleep? STOP Results Positive 09/28/24 08:39 QUESTION #5 FULL TEXT : Do you snore loudly (louder than talking or can be heard through closed doors)? 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 Specify any problems Hx of Preganancy in last 3 No 09/28/24 08:39 Months Nurse Filling Out Transfusion JZOLLINGE 09/28/24 08:39 & Questions: Date: 09/28/24 09/28/24 08:39 Time: 08:41 09/28/24 08:39 Patient unable to answer at this time (ie. confused, unrespo /Reproduction History /Reproductive History - assembl[employer] aircraft [employer]: /Reproductive Hx- assembler aircraft [employer] Hx Now No 09/28/24 08:39 Gestational Age (in weeks): EDC: Hx Hx Para Hx Section SAB No 09/28/24 08:39 Active Medications Active Medications: Current Medications Generic Name Dose Route Start Last Admin Trade Name Freq PRN Reason Stop Dose Admin Lactated Ringer's 1,000 mls @ 999 mls/hr 10/04/24 07:30 10/04/24 06:47 IV 10/04/24 08:30 999 mls/hr .Q1H1M OTF Administration Lactated Ringer's 1,000 mls @ 15 mls/hr 10/04/24 06:15 IV .Q48H OTF PFSH Medical History (Updated 09/28/24 @ 08:39 by Ioana Anders) Wears glasses Hx of radiation therapy Arthritis Wears contact lenses Cancer Alcohol use Non-smoker Hypertension Left breast lump ASCUS of cervix with negative high risk HPV Complex cyst of right ovary Kidney stones, calcium oxalate Breast cancer Home Medications ?Medication ?Instructions ?Recorded ?Last Taken ?Type losartan 25 mg tablet 25 mg PO QHS 10/01/21 History fluticasone propionate 50 2 spray intranasal DAILY PRN 08/16/24 10/02/24 History mcg/actuation nasal allergy symptoms spray,suspension (24 Hour Allergy Relief) loratadine 10 mg tablet 10 mg PO QHS 08/16/24 History ([email or web address]) Allergy/AdvReac Type Severity Reaction Status Date / Time No Known Allergies Allergy Verified 10/04/24 06:34 Family History Grandmother Breast cancer Hypertension Father Cancer prostate Surgical History (Updated 09/28/24 @ 08:39 by Ioana Anders) Hx of lymph node excision S/P lumpectomy, right breast History of mastectomy Hx of right breast biopsy Hx of right mastectomy H/O mastectomy Social History (Updated 09/26/24 @ 13:10 by Neena Evangelista) number of children: 2 current occupational status: employed 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 Physical Exam Const alert, oriented x3 and average body habitus Resp normal respiratory effort, normal air movement and clear to auscultation bilaterally Cardio regular rate, regular rhythm, no murmurs and diaphoretic
--- NOTE | 2024-10-04 07:26 | PCM.HP.BLA ---
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 She has had bilateral breast cancer, treated at [facility]. ER+, ND+ Her 2 neg. She wants this done sonya so that she can start anastrozole therapy. She is ok with either myself or Dr. Andrews performing this. History 2 Elective abortions Hx Para 2 Spontaneous abortions Hx # Term Pregnancies Ectopic pregnancies Hx # Pregnancies Multiple births # of living children 2 Past Pregnancies Del. Date Name GA/Weeks Outcome Route Bth Weight Gen Labor Lgth Anesthesia Del Locatn Provider FOB Unknown Lesly 2007 Unknown Nicholas 2009 ROS Const ROS Unobtainable: All systems reviewed & are unremarkable except as noted in H Resp Resp: Reports system reviewed and no additional complaints, except as documented; Denies cough GI GI: Reports as per HPI Psych Psych: Reports system reviewed and no additional complaints, except as documented Exam Const General: cooperative, healthy appearing, comfortable and no acute distress Resp Effort & Inspection: normal respiratory effort Skin General: no rashes or lesions noted Psych Appearance: grossly normal Speech and Movement: speech and movement normal Coding Level of Care Code Off vis,est,level 4 Diagnoses History of breast cancer Z85.3 Assessment and Plan Assessment and Plan (1) History of breast cancer: Status: Acute Comment: right mastectomy 2013. MOre recently underwent left masectomy and found to have invasive mammary cancer. empower test ordered, positive variant CHEK2 detected and VUS RAD50. Pt notified and report sent to her Plan: After discussing the patient's diagnosis and treatment plan options, patient wishes to proceed with surgical management. I have discussed with the patient the risks, benefits, and alternatives of the procedure which include but are not limited to risks of anesthesia, bleeding, infection, possible damage to bowel, bladder, or surrounding vasculature which could lead to additional surgery to evaluate any complications. Patient agrees to procedure and wishes to proceed. ACOG/uptodate references given for additional information regarding procedure. plan for laparoscopic BSO for better treatment for breast cancer.
--- NOTE | 2024-10-04 07:27 | DCINST_ITS ---
Discharge Instructions Diet Discharge Diet: No restrictions DC O2, CPAP, BIPAP needs Home O2 Discharge instructions: No Dressing / Incision Discharge Activity: Return to Normal Activity, May Not Drive (for two weeks or while taking narcotic pain medications.), May Shower and May Take a Tub Bath (in 7 days) May resume sexual activity in: 1 week Weight Bearing Status: Full weight bearing Dressing / Incision Call your doctor if you observe: Using more than 1 pad per hour, Shortness of breath, Chest pain and Uncontrolled pain Suture Line Care: Avoid Pulling/Pushing and Avoid Pinching/Bending Remove Dressing in: 1 week (if present) Cleanse incision/area with: Soap & Water and Keep Dressing Clean & Dry Follow Up Care Please Follow Up With: Ellen Pryor DO When: Call to make an appointment with your doctor for a follow up incision check in 1-2 weeks. Test Results: Test results from this visit will be discussed in further detail at your follow- up appointment, if applicable. Discharge Plan Admission Primary Reason for Your Visit: laparoscopic bilateral salpingo-oophorectomy Attending Provider: Ellen Pryor Primary Care Provider: Neena Knox Instructions Print Language: Trinidadian Discharge Orders/Prescriptions Prescriptions: New ibuprofen 800 mg tablet 800 mg PO Q8H PRN (Reason: pain) Qty: 30 0RF ondansetron HCl 4 mg tablet 4 mg PO Q6H PRN (Reason: nausea and vomiting) Qty: 20 0RF oxycodone-acetaminophen [Percocet] 5-325 mg tablet 1 tab PO Q4H PRN (Reason: pain) 7 Days Qty: 14 0RF Continued losartan 25 mg Tablet 25 mg PO QHS fluticasone propionate [24 Hour Allergy Relief] 50 mcg/actuation spray,suspension 2 spray intranasal DAILY PRN (Reason: allergy symptoms) Rx Instructions: administer into each nostril loratadine [Allerclear] 10 mg tablet 10 mg PO QHS Referrals / Follow Up: Neena Knox MD [Primary Care Provider] - Disposition Disposition (needs filled in before D/C Order can be placed): Home, Self Care
--- NOTE | 2024-10-04 07:30 | FALS_PTH ---
PATIENT: DOLORES MONIQUE LOC: [facility] U#:[id number] AGE/SX: 49/F ROOM: RE10/04/[address]: Dr. Ellen Pryor DO : 1975 BED: DIS: 10/04/2024 SPEC #: [id number] RECD: 10/04/24 08:30 STATUS: TANK YUSEF #: [id number] RISA: 10/04/24 07:[address]: Ellen Pryor DEPT: SURGICAL PATHOLOGY RECD BY: Solomon Torres ENTERED: 10/04/24 12:12 SP TYPE: FALL TUBES OTHR DR: Dr. Neena Knox MD Tissues: A - Fallopian tube Procedures: Surgery Specimen Level II HEADER OPERATION: Laparoscopic, salpingo-oopherectomy PRE-OP DIAGNOSIS: History of breast cancer TISSUE SUBMITTED: A- Bilateral fallopian tubes and bilateral ovaries MICROSCOPIC DIAGNOSIS A. Bilateral fallopian tubes and ovaries, resection: * Fallopian tubes with small benign serous cystadenoma and benign paratubal cysts. * Ovaries with corpora lutea. MICROSCOPIC DESCRIPTION Slides are reviewed. GROSS DESCRIPTION A.? Received in formalin labeled with the patient's name and date of . Designated as bilateral fallopian tubes and bilateral ovaries are bilateral adnexa, devoid of orientation. The fallopian tubes are purple-red and fimbriated, each with multiple paratubal cysts (<0.1 cm to 1.2 cm) measuring 5.0 cm and 4.2 cm in length by an average of 0.5 cm in diameter. The mckeon-white cerebriform ovaries are 9.1 g, 5.0 x 2.5 x 1.2 cm (intact) and 13.4 g, 5.5 x 2.5 x 1.3 cm. ?Sectioning reveals solid cut surfaces with identifiable corporeal lutea.? Senior Php Web Developer sections are submitted as follows: ? A1-A2: Fallopian tubesA3-A4: Ovaries VT 10/05/2024 The remainder of the specimen is entirely submitted, following histopathologic review, as follows:A5-A8: Fallopian tubesA9-A28: Ovaries VT 10/15/2024 CPT:60857
--- NOTE | 2024-10-04 08:08 | PCM.OPRPT ---
Problems Associated Problem List Diagnoses (1) Recurrent breast cancer: (2) Climacteric: (3) Encounter for screening for malignant neoplasm of colon: (4) History of breast cancer: (5) ASCUS of cervix with negative high risk HPV: Multi Select Codes Urinary/Genital Urinary/Genital CPT Codes: 97464-12 LAPARO REMOVE ADNEXA BILAT Operative Report (Standard) Operative Information Date of Procedure: 10/04/24 Pre-Operative Diagnosis: recurrent breast cancer Post-Operative Diagnosis: recurrent breast cancer Surgery/Procedure Performed: laparoscopic bilateral salpingo-oophorectomy elementary substitute teacher: Yes Singer And Unloader: Minh Medina Tasks completed by trade sales assistant: Closing and Other (holding camera) Additional pet care assistant?: No Type of Anesthesia: General RN Documented Start/Stop Times: Operation Date: 10/04/24 07:30 Case Time Into Pre-Op 10/04/24 06:02 Anesthesia Start 10/04/24 07:30 Into Room 10/04/24 07:30 Out of Pre-Op 10/04/24 07:30 Procedure Start 10/04/24 07:49 Procedure Start Time: 07:49 Procedure Stop Time: 08:16 Select all DRAINS/GRAFTS/IMPLANTS that apply: None Estimated Blood Loss: 3cc Specimen collected: Yes Description of specimen(s) removed: bilateral fallopian tubes and ovaries Description of surgery: Patient was taken in the operating room and was placed under general anesthesia was prepped and draped in normal sterile fashion in the dorsal lithotomy position. Bladder was drained of clear urine and SCDs were on preoperatively. Uterus was sounded and a uterine manipulator was placed after dilating. Attention was then paid to the abdominal portion of the procedure and the umbilicus was elevated with towel clamps and injected with Marcaine and after a 5 mm incision was made and a 5 mm trocar was inerted into the abdomen under direct visualization. The Abdomen was insufflated with CO2 gas A left lower quadrant 5 mm port and a mini-grasper port suprapubically were placed under direct visualization. Uterus was well visualized and bilateral fallopian tubes identified and bilateral tubes were elevated and transecting across the IP ligament and the attachment to the uterine corpus bilaterally the tubes and ovaries were removed without complication. Excellent hemostasis was noted. Fallopian tubes and ovaries were placed in a 5 mm endocatch bag and were removed through the left lower quadrant site after stretching the facia with a roderick clamp. This was performed without complication. Liver and upper abdomen were visualized notably within normal limits and no other gross abnormalities were seen in the abdomen. The fascia was closed with a 1-0 vicryl with a kiran-caldera closure device. All instruments removed from the abdomen after gas was desufflated. Port sites were closed with 3-0 Monocryl Steri's and op sites were applied. All instruments removed from the vagina and patient was awoken and taken recovery in stable condition. Surgical Findings: normal appearing uterus, left ovarian simple cyst. Otherwise normal appearing ovaries. Complications Complications: No Admit VTE Documentation VTE Present on Admission: No VTE Mechan Device Prophylaxis: SCD's VTE Pharm Prophylaxis ordered?: No
[2024-10-04] MEDS: Bupivacaine Mpf 0.5% 30 ML VIAL (08:09)
--- NOTE | 2024-10-04 08:42 | PCM.POST.ANE ---
Anesthesia: Postop Eval I Current Vital Signs Temperature: 97.3 F Pulse Rate: 72 Blood Pressure: 111/84 Respiratory Rate: 16 Pulse Ox: 100 Oxygen Delivery Method: Room Air Assessment Airway patent: Yes Spontaneous unlabored respirations: Yes Mental status: Awake and Calm nausea: No Vomiting: No Anesthesia Complication: No Fluid Hydration Crystalloid volume administer (ml): 800 Total IV fluid infused: 800 Progress Note Anesthesia document: Postop Eval 1 completed: Yes
[2024-10-04] MEDS: oxyCODONE 5 MG Tablet PO (09:31)
--- NOTE | 2024-10-04 11:28 | POSTOPAN2_ITS ---
Anesthesia Postop Eval I Sum Postop Eval Completion status Anesthesia document: Postop Eval 1 completed: Yes Anesthesia Postop Eval I Summary Anesthesia Postop Eval I Summary: Anesthesia Postop Eval I: Assessment Summary Airway patent Yes 10/04/24 08:42 TRASH HAULER.MDOT Spontaneous unlabored Yes 10/04/24 08:42 TRASH HAULER.MDOT respirations Mental status Awake,Calm 10/04/24 08:42 TRASH HAULER.MDOT nausea No 10/04/24 08:42 TRASH HAULER.MDOT Vomiting No 10/04/24 08:42 TRASH HAULER.MDOT Anesthesia Postop Eval I: Fluid Summary Crystalloid volume administer 800 10/04/24 08:42 TRASH HAULER.MDOT (ml) Colloids volume administered ( ml) Blood Product volume administered (ml) Total IV fluid infused 800 10/04/24 08:42 TRASH HAULER.MDOT Anesthesia Postop Eval I: Summary Notes Anesthesia Complication No 10/04/24 08:42 TRASH HAULER.MDOT Anesthesia Complication Comment: Post-operative progress note Anesthesia: Postop Eval II Evaluation Mental status: Awake Pain Level: 0 nausea: No Vomiting: No Complications Anesthesia Complication: No
--- NOTE | 2024-10-04 11:28 | PCM.POSTANE2 ---
Anesthesia Postop Eval I Sum Postop Eval Completion status Anesthesia document: Postop Eval 1 completed: Yes Anesthesia Postop Eval I Summary Anesthesia Postop Eval I Summary: Anesthesia Postop Eval I: Assessment Summary Airway patent Yes 10/04/24 08:42 SUSTAINABLE SYSTEMS ANALYST.MDOT Spontaneous unlabored Yes 10/04/24 08:42 SUSTAINABLE SYSTEMS ANALYST.MDOT respirations Mental status Awake,Calm 10/04/24 08:42 SUSTAINABLE SYSTEMS ANALYST.MDOT nausea No 10/04/24 08:42 SUSTAINABLE SYSTEMS ANALYST.MDOT Vomiting No 10/04/24 08:42 SUSTAINABLE SYSTEMS ANALYST.MDOT Anesthesia Postop Eval I: Fluid Summary Crystalloid volume administer 800 10/04/24 08:42 SUSTAINABLE SYSTEMS ANALYST.MDOT (ml) Colloids volume administered ( ml) Blood Product volume administered (ml) Total IV fluid infused 800 10/04/24 08:42 SUSTAINABLE SYSTEMS ANALYST.MDOT Anesthesia Postop Eval I: Summary Notes Anesthesia Complication No 10/04/24 08:42 SUSTAINABLE SYSTEMS ANALYST.MDOT Anesthesia Complication Comment: Post-operative progress note Anesthesia: Postop Eval II Evaluation Mental status: Awake Pain Level: 0 nausea: No Vomiting: No Complications Anesthesia Complication: No
== END 2024-10-04 10:33 | disposition home or self-care (01) ==
LOC: SDC 05:50 → AC 05:51
PROVIDERS: Anesthesiology; PCP Family Medicine; Referring Provider Obstetrics & Gynecology; Visit Provider Obstetrics & Gynecology
PROC: (CPT 58661; principal; 2024-10-04 07:15)
DX: C50.911 Malignant neoplasm of unspecified site of right female breast (principal); C50.912 Malignant neoplasm of unspecified site of left female breast; D28.2 Benign neoplasm of uterine tubes and ligaments; N83.8 Other noninflammatory disorders of ovary, fallopian tube and broad ligament; N83.11 Corpus luteum cyst of right ovary; N83.12 Corpus luteum cyst of left ovary; I10 Essential (primary) hypertension; Z17.32 Human epidermal growth factor receptor 2 negative status; Z17.0 Estrogen receptor positive status [ER+]; Z90.13 Acquired absence of bilateral breasts and nipples; Z79.899 Other long term (current) drug therapy; Z87.891 Personal history of nicotine dependence; Z80.3 Family history of malignant neoplasm of breast
CPT/HCPCS: 58661; 00840; 81025; 86850; 86900; 86901; 88302; J2405

== ENCOUNTER → 2024-11-23 | Outpatient (CLI) | payer OTHER, SELFPAY ==
--- NOTE | 2024-11-23 12:41 | US_ITS ---
EXAM: Ultrasound of the left axilla. CLINICAL HISTORY: Palpable lump in the left axilla. The patient is status post bilateral mastectomy. COMPARISON: None TECHNIQUE: Imaging of the left axilla was obtained with ultrasound. FINDINGS: There is a 1.9 cm by 1 cm 0.5 cm benign-appearing lymph node. There is also evidence of a 1 cm x 0.9 cm x 0.4 cm hypoechoic nodular density with thickened cortex and diminished fatty hilum. This may be suspicious. Biopsy may be indicated. US/Axilla - Left IMPRESSION: There is a 1 cm x 0.9 cm x 0.4 cm predominantly hypoechoic nodular density in t he axilla with the decreased size of the fatty hilum suggestive of possible suspicious lymph node. Biopsy recommended. Reading Location: [id number]
--- NOTE | 2024-11-23 12:41 | US_ITS ---
EXAM: Ultrasound of the left axilla. CLINICAL HISTORY: Palpable lump in the left axilla. The patient is status post bilateral mastectomy. COMPARISON: None TECHNIQUE: Imaging of the left axilla was obtained with ultrasound. FINDINGS: There is a 1.9 cm by 1 cm 0.5 cm benign-appearing lymph node. There is also evidence of a 1 cm x 0.9 cm x 0.4 cm hypoechoic nodular density with thickened cortex and diminished fatty hilum. This may be suspicious. Biopsy may be indicated. US/Axilla - Left IMPRESSION: There is a 1 cm x 0.9 cm x 0.4 cm predominantly hypoechoic nodular density in t he axilla with the decreased size of the fatty hilum suggestive of possible suspicious lymph node. Biopsy recommended. Reading Location: [id number]
== END | disposition home or self-care (01) ==
LOC: US 12:40
PROVIDERS: PCP Family Medicine; Referring Provider Obstetrics & Gynecology; Visit Provider Obstetrics & Gynecology
DX: N63.0 Unspecified lump in unspecified breast (principal)
CPT/HCPCS: 76882

== ENCOUNTER → 2025-01-04 | Outpatient (CLI) | payer OTHER, SELFPAY ==
[2025-01-04 12:47] LABS: Hematocrit 38.3 % (37-47); Hemoglobin 12.3 g/dL (12.0-15.0); Immature Granulocytes Count 0.010 X10^3/uL (0.0-0.0); Mean Corp Hgb Conc 32.1 g/dL (32-36); Mean Corpuscular Volume 92.1 fL (81-99); Mean Platelet Vol. 10.0 fl (6.2-12.0); NRBC Flagged by Analyzer 0 % (0-5); Platelet Count 324 K/mm3 (150-450); RBC Distribution Width CV 12.5 % (11.6-14.6); RBC Distribution Width SD 42.4 fl (35.1-43.9); Red Blood Count 4.16 M/mm3 (4.2-5.4); White Blood Count 4.0 K/mm3 (4.4-11.0)
[2025-01-04 13:07] LABS: AST(SGOT) 23 U/L (<=31); Alanine Aminotransfer ALT/SGPT 26 U/L (<=34); Albumin, Serum 4.4 g/dL (3.5-5.0); Alkaline Phosphatase 70 U/L (35-104); Anion Gap 11 (5-15); BUN 16 mg/dL (4-19); BUN/Creat Ratio 23.1 RATIO (10-20); Calcium,Total 10.1 mg/dL (7.6-11.0); Carbon Dioxide 25.6 mmol/L (21.0-32.0); Chloride 103 mmol/L (98-108); Globulin 2.8 g/dL (2.2-4.2); Glucose 90 mg/dL (70-99); Potassium 4.7 mmol/L (3.3-5.1)
== END | disposition home or self-care (01) ==
LOC: BFHLAB 10:30
PROVIDERS: PCP Family Medicine; Visit Provider Family Medicine
DX: C50.919 Malignant neoplasm of unspecified site of unspecified female breast (principal); Z15.02 Genetic susceptibility to malignant neoplasm of ovary; Z15.09 Genetic susceptibility to other malignant neoplasm; Z15.89 Genetic susceptibility to other disease; I10 Essential (primary) hypertension
CPT/HCPCS: 36415; 80053; 85025

== ENCOUNTER → 2025-01-29 | Outpatient (CLI) | payer OTHER, SELFPAY ==
--- NOTE | 2025-01-29 09:14 | BD_ITS ---
PROCEDURE: DEXA BONE DENSITY STUDY 01/29/2025 REASON FOR EXAM: F, age 49 y/o . Postmenopausal. TECHNIQUE: Procedure Code: BDDBD Modality: DX Procedure: DEXA BONE DENSITY STUDY COMPARISON: None FINDINGS: BMD and T-SCORES Lumbar spine: 0.866 g/cm2, T-score -1.7 Levels: L1 through L4 Left femoral neck: 0.716 g/cm2, T-score -1.2 Femoral neck comparison data not recommended for monitoring change. Left total hip: 0.871 g/cm2, T-score -0.6 Right femoral neck: 0.809 g/cm2, T-score -0.4 Femoral neck comparison data not recommended for monitoring change. Right total hip: 0.937 g/cm2, T-score 0.0 The World Health Organization has defined the following categories based on bone density: Normal bone density: T-score equal to or greater than -1.0 Osteopenia: T-score between -1.0 and -2.5 Osteoporosis: T-score equal to or less than -2.5 FRAX (or Comparable) Fracture Risk Assessment: 10 Year Probability of Fracture: Major Osteoporotic Fracture: 8.8% Hip Fracture: 0.6% (Note: FRAX is not to be reported in setting of normal range bone density, osteoporosis on DEXA, known history of osteoporosis, prior osteoporotic hip or vertebral fracture, or for any patient undergoing pharmacological treatment for bone loss.) The National Osteoporosis Foundation (NOF) recommends pharmacological treatment for patients with a FRAX 10-year risk of 3% or higher for a hip fracture, or 20% or higher for a major osteoporotic fracture, to prevent osteoporosis and reduce fracture risk. The patient does meet the pharmacological treatment recommendations for prevention of osteoporosis. BD/Dexa Bone Density Study IMPRESSION: OSTEOPENIA. Recommend follow-up as clinically warranted. Reading Location: [place] [id number]
== END | disposition home or self-care (01) ==
LOC: OPBD 09:10
PROVIDERS: PCP Family Medicine; Referring Provider Family Medicine; Visit Provider Family Medicine
DX: E89.40 Asymptomatic postprocedural ovarian failure (principal); C50.919 Malignant neoplasm of unspecified site of unspecified female breast
CPT/HCPCS: 77080